=== PATIENT | female | born 1985 | race Two or more races ===

== ENCOUNTER 2021-04-28 15:13 | Inpatient (IN) | payer MEDICAID ==
[2021-04-28] VITALS (31 sets, daily range): BP systolic 88–140; BP diastolic 36–94
[~2021-04-28] VITALS: Ht 165.1 cm; Wt 90.7 kg
[2021-04-28] MEDS ORDERED: REMDESIVIR (EUA) 200 MG in NS 100ML 100 ML IV STA (19:53)
--- NOTE | 2021-04-28 19:53 | PCM.HP ---
HISTORY & PHYSICAL HISTORY & PHYSICAL DATE OF ADMISSION: April 28, 2021 CHIEF COMPLAINT: Progressively worsening shortness of breath no 8 days HISTORY OF PRESENT ILLNESS: 35-year-old female with previous history of no known medical problem was apparently in her usual health until about 8 days prior to this admission,He developed upper respiratory symptoms followed by progressively worsening shortness of breath went to the local emergency room where she was evaluated and found to have Covid pneumonia with acute hypoxemic respiratory failure . Patient was started on dexamethasone hydroxychloroquine ivermectin and other medications but her symptoms progressively got worse therefore they transferred the patient to this facility patient claims that her symptoms still with difficulty breathing especially with minimal exertion no fever no vomiting tolerating p.o. intake well no diarrhea no abdominal pain and denies any dysuria hematuria or increased frequency of urination ALLERGIES: No known drug allergies CURRENT MEDICATIONS: No regular medication intake except contraceptive injection PAST MEDICAL HISTORY: Nothing significant SOCIAL HISTORY: Denies smoking alcohol or drug use FAMILY HISTORY: Reviewed and noncontributory REVIEW OF SYSTEMS: Shortness of breath with even minimal exertion, no nausea or vomiting have chest pain with cough and deep breathing denies any abdominal pain no diarrhea last menstrual period several months prior to this admission after starting contraceptive injections history of having. No urinary symptoms have generalized weakness All systems reviewed and negative negative except mentioned above VITAL SIGNS: Vital Signs Date Time Temp Pulse Resp B/P (MAP) Pulse Ox O2 Delivery O2 Flow Rate FiO2 04/28/21 18:00 80 25 86 04/28/21 17:45 80 20 106/67 (80) 88 04/28/21 17:32 91 44 88/70 (76) 87 04/28/21 17:30 71 15 92 04/28/21 17:27 87 120 92/54 (67) 97 04/28/21 17:16 98 04/28/21 17:15 96 04/28/21 17:01 85 04/28/21 17:00 85 04/28/21 16:50 90 22 90 Comfort Doug 50.00 100 04/28/21 16:49 22 90 04/28/21 16:46 85 04/28/21 16:45 87 04/28/21 16:30 77 20 92/45 (61) 94 04/28/21 16:15 82 31 107/58 (74) 88 04/28/21 16:00 85 19 106/65 (79) 89 04/28/21 15:45 86 41 88/45 (59) 85 04/28/21 15:30 90 19 92/42 (59) 93 04/28/21 14:40 Comfort Doug 40.00 04/28/21 14:30 98.3 92 30 140/76 (97) 88 PHYSICAL EXAMINATION: Awake alert oriented have mild dyspnea no cyanosis HEENT pupil react light mucous membrane is moist I have high flow oxygen via nasal cannula 50% FiO2 and 70L/min flow rate Lungs bilateral Rales present diminished air entry bilaterally no wheezes heard Heart S1-S2 heard no murmur gallop appreciated,Regular rate and rhythm Abdomen: Soft nontender bowel sounds present no masses organomegaly appreciated Extremities: No edema no calf tenderness dorsalis pedis pulses present bilaterally 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 LUC DENISE MD Apr 28, 2021 19:53
[2021-04-28] MEDS: LOVENOX SQ SCH (20:00)
[2021-04-28] MEDS ORDERED: CARAFATE PO ONE (20:56)
[2021-04-28] MEDS: PEPCID PO SCH (21:00)
[2021-04-28] MEDS: CARAFATE PO SCH (21:00)
--- NOTE | 2021-04-28 23:30 | NUR ---
Dr. Merrill gave orders for bipap at night with settings of 14/6 with respirations 16. Goal to keep oxygen saturation 90 & or above. Order received for while on bipap PRN Q4H 0.5 ativan or 1mg ativan.
[2021-04-29] VITALS (76 sets, daily range): BP systolic 72–149; BP diastolic 33–112
[2021-04-29] MEDS ORDERED: ATIVAN IV PRN
[2021-04-29] MEDS: ATIVAN IV PRN (03:00)
[2021-04-29 04:50] LABS: LYMPHOCYTES # 1.17 10^3/uL1 (1.0-4.8); MEAN CORP HGB 29.1 pg (26-34); MONOCYTES # 0.5 10^3/uL (0.3-0.8); MONOCYTES % 8.4 % (5.0-12.0); NEUTROPHIL # 4.5 10^3/uL (1.8-7.7); NEUTROPHILS % 72.3 % (41.0-85.0); PLATELET COUNT 162 10^3/uL (150-400); RED CELL DISTRIBUTION WIDTH 12.5 % (11.5-14.5)
[2021-04-29 05:09] LABS: CALCIUM 8.6 mg/dL (8.4-10.5); CARBON DIOXIDE 25.2 mmol/L (20.0-32)
[2021-04-29] MEDS: CARAFATE PO SCH ×4 (07:30→20:59)
[2021-04-29] MEDS: DEXAMETHASONE 10 MG/ML VIAL IV SCH (09:00)
[2021-04-29] MEDS: PEPCID PO SCH ×2 (09:00→20:59)
[2021-04-29] MEDS ORDERED: SUBLIMAZE ONE (11:37)
[2021-04-29] MEDS ORDERED: SUBLIMAZE IV ONE (15:00)
--- NOTE | 2021-04-29 18:19 | PRM.PN ---
PROGRESS NOTE SUBJECTIVE Feeling the same shortness of breath still present cough intermittently and chest pain with coughing,Tolerating p.o. intake well As per a respiratory therapist patient did not tolerate BiPAP OBJECTIVE Vital Signs Date Time Temp Pulse Resp B/P (MAP) Pulse Ox O2 Delivery O2 Flow Rate FiO2 04/29/21 17:48 75 30 92 Comfort Doug 50.00 95 04/29/21 17:45 75 11 122/74 (90) 92 04/29/21 17:30 78 35 111/73 (86) 96 04/29/21 17:16 78 27 131/69 (89) 91 04/29/21 17:15 85 20 91 04/29/21 17:00 84 18 105/55 (72) 96 04/29/21 16:45 84 50 115/67 (83) 92 04/29/21 16:30 94 92 139/75 (96) 87 04/29/21 16:15 85 51 116/71 (86) 93 04/29/21 16:00 78 40 141/74 (96) 97 04/29/21 15:55 Comfort Doug 50.00 04/29/21 15:45 99.0 76 31 134/73 (93) 98 04/29/21 15:30 83 30 98/51 (67) 97 04/29/21 15:17 48 30 106/64 (78) 92 04/29/21 15:15 76 25 90 04/29/21 15:01 87 35 94 04/29/21 15:00 88 33 94 04/29/21 14:46 68 44 94 04/29/21 14:45 85 41 95 04/29/21 14:37 93 35 95 Comfort Doug 50.00 95 04/29/21 14:31 86 38 92 04/29/21 14:16 86 12 93 04/29/21 14:01 89 16 96 04/29/21 14:00 84 14 96 04/29/21 13:45 88 39 96 04/29/21 13:15 89 36 106/76 (86) 98 04/29/21 13:00 77 34 126/72 (90) 98 04/29/21 12:45 73 32 126/55 (78) 99 04/29/21 12:30 91 14 125/76 (92) 97 04/29/21 12:15 88 61 122/63 (82) 97 04/29/21 12:01 77 16 128/74 (92) 97 04/29/21 12:00 Comfort Doug 50.00 04/29/21 11:45 85 136/73 (94) 96 04/29/21 11:30 91 24 117/68 (84) 98 04/29/21 11:15 85 20 117/75 (89) 96 04/29/21 11:00 86 28 113/80 (91) 100 04/29/21 10:45 74 29 113/60 (77) 98 04/29/21 10:30 92 38 129/81 (97) 100 04/29/21 10:15 76 38 102/57 (72) 100 04/29/21 10:00 73 37 111/72 (85) 98 04/29/21 09:45 85 40 97 04/29/21 09:31 75 16 108/65 (79) 04/29/21 09:30 87 24 96 04/29/21 09:25 87 25 96 Comfort Doug 55.00 100 04/29/21 09:15 77 19 97 04/29/21 09:14 84 96 04/29/21 08:16 93 14 146/112 (123) 04/29/21 08:15 94 72 04/29/21 08:00 68 28 111/62 (78) 04/29/21 07:45 98.2 70 20 100/74 (83) 04/29/21 07:30 52 93/51 (65) 97 04/29/21 07:15 51 16 89/57 (68) 97 04/29/21 07:00 51 15 93/57 (69) 97 General: Patient is sitting in the chair breathing 95% FiO2 and 50% flow rate v ia high flow comfort flow mechanism Saturating 92% HEENT pupil react light anicteric sclera mucous membrane is moist neck supple Lungs Bilateral Rales present in all 3 zones ,Shallow breathing Heart S1-S2 heard no murmur gallop appreciated Abdomen soft no guarding bowel sounds present Extremities no edema no calf tenderness elicited 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 Laboratory Tests Test 04/29/21 04:35 White Blood Count 6.2 10^3/uL (4.5-11.0) Red Blood Count 4.64 10^6/uL (4.00-5.20) Hemoglobin 13.5 g/dL (12.0-15.0) Hematocrit 41.2 % (36.0-46.0) Mean Corpuscular Volume 88.8 fL (78-100) Mean Corpuscular Hemoglobin 29.1 pg (26-34) Mean Corpuscular Hemoglobin Concent 32.8 g/dL (33-36.5) Red Cell Distribution Width 12.5 % (11.5-14.5) Platelet Count 162 10^3/uL (150-400) Mean Platelet Volume 10.9 fL (7.8-11.0) Neutrophils (%) (Auto) 72.3 % (41.0-85.0) Lymphocytes (%) (Auto) 19.0 % (24.0-44.0) Monocytes (%) (Auto) 8.4 % (5.0-12.0) Neutrophils # (Auto) 4.5 10^3/uL (1.8-7.7) Lymphocytes # (Auto) 1.17 10^3/uL1 (1.0-4.8) Monocytes # (Auto) 0.5 10^3/uL (0.3-0.8) Absolute Immature Granulocyte (auto 0.02 10^3 u/L (0-2) Absolute Eosinophils (auto) 0.0 10^3/uL (0.0-0.2) Immature Granulocytes % 0.30 % (0.00-0.50) Eosinophils % 0.0 % (0.0-5.0) Basophils % 0.0 % (0.0-0.2) Basophils # 0.0 10^3/uL (0.0-0.1) Sodium Level 141 mmol/L (132-145) Potassium Level 4.0 mmol/L (3.6-5.2) Chloride Level 106.0 mmol/L (96-109) Carbon Dioxide Level 25.2 mmol/L (20.0-32) Anion Gap 13.8 Blood Urea Nitrogen 12 mg/dL (7-18) Creatinine 0.65 mg/dL (0.59-1.40) Estimated GFR () 124.8 (>/=60) Est GFR (CKD-EPI)(Non-Afr Senegalese) 103.1 (>/=60) BUN/Creatinine Ratio 18.0 Glucose Level 98 mg/dL (70-110) Calcium Level 8.6 mg/dL (8.4-10.5) Total Bilirubin 0.5 mg/dL (0.2-1.0) Aspartate Amino Transf (AST/SGOT) 42 U/L (0-35) Alanine Aminotransferase (ALT/SGPT) 47 U/L (12-78) Alkaline Phosphatase 47 U/L (50-136) Total Protein 6.6 g/dL (6.4-8.2) Albumin 2.6 g/dL (3.4-5.0) Globulin 4.0 Albumin/Globulin Ratio 0.650 Serum HCG, Qualitative NEGATIVE (NEGATIVE) ASSESSMENT Acute hypoxemic respiratory failure on high flow oxygen as outo respiratory therapist patient refused BiPAP currently on 95% oxygen and 50 L/min flow rate COVID-19 pneumonia Amenorrhea secondary to hormone therapy for contraceptive High risk For DVT PLAN Continue current management and reevaluate the patient in a.m. Recommended transferring patient to LTAC LUC DENISE MD Apr 29, 2021 18:19
[2021-04-29] MEDS: LOVENOX SQ SCH (20:00)
[2021-04-29] MEDS: REMDESIVIR (EUA) 100 MG in NS 100ML 100 ML IV SCH (20:00)
[2021-04-30] VITALS (96 sets, daily range): BP systolic 97–186; BP diastolic 43–99
[2021-04-30 04:44] LABS: BASOPHIL % 0.2 % (0.0-0.2); LYMPHOCYTES # 1.32 10^3/uL1 (1.0-4.8); LYMPHOCYTES % 20.6 % (24.0-44.0); MEAN CORP HGB 29.6 pg (26-34); MONOCYTES # 0.5 10^3/uL (0.3-0.8); MONOCYTES % 8.4 % (5.0-12.0); NEUTROPHIL # 4.5 10^3/uL (1.8-7.7); NEUTROPHILS % 70.8 % (41.0-85.0); PLATELET COUNT 195 10^3/uL (150-400); RED CELL DISTRIBUTION WIDTH 12.1 % (11.5-14.5)
[2021-04-30 04:58] LABS: CALCIUM 8.4 mg/dL (8.4-10.5); CARBON DIOXIDE 26.2 mmol/L (20.0-32)
--- NOTE | 2021-04-30 06:50 | NUR ---
REPORT RECEIVED FROM SIGRID AMBRIZ RN. ASSUMED PT CARE.
[2021-04-30] MEDS: CARAFATE PO SCH ×4 (07:30→21:00)
[2021-04-30] MEDS: DEXAMETHASONE 10 MG/ML VIAL IV SCH (08:19)
[2021-04-30] MEDS: PEPCID PO SCH ×2 (08:19→21:00)
--- NOTE | 2021-04-30 14:10 | PRM.PN ---
PROGRESS NOTE SUBJECTIVE Patient claims feeling slightly better cough diminished tolerating p.o. intake well no bowel movements no chest pain except during cough and no abdominal symptoms OBJECTIVE Vital Signs Date Time Temp Pulse Resp B/P (MAP) Pulse Ox O2 Delivery O2 Flow Rate FiO2 04/30/21 13:00 111 107/60 (76) 98 04/30/21 12:45 82 17 113/71 (85) 95 04/30/21 12:30 90 8 105/75 (85) 94 04/30/21 12:15 142 120/64 (82) 97 04/30/21 12:06 99.0 88 35 115/66 (82) 95 04/30/21 12:02 186/99 (128) 93 04/30/21 12:00 Comfort Doug 50.00 04/30/21 11:30 94 43 140/51 (80) 88 04/30/21 11:15 91 10 114/64 (81) 91 04/30/21 11:00 88 17 157/93 (114) 94 04/30/21 10:46 92 28 135/66 (89) 94 04/30/21 10:30 79 17 132/67 (88) 97 04/30/21 10:15 94 24 144/86 (105) 91 04/30/21 10:00 92 15 125/79 (94) 96 04/30/21 09:45 95 143/79 (100) 91 04/30/21 09:30 91 21 123/75 (91) 94 04/30/21 09:16 93 24 108/70 (83) 97 04/30/21 09:15 95 24 98 04/30/21 09:00 92 40 119/75 (90) 93 04/30/21 08:45 85 27 111/63 (79) 91 04/30/21 08:30 96 41 106/76 (86) 86 04/30/21 08:16 94 24 126/80 (95) 87 04/30/21 08:15 93 37 90 04/30/21 08:14 73 30 93 Comfort Doug 50.00 95 04/30/21 08:00 80 113/75 (88) 91 04/30/21 08:00 Comfort Doug 50.00 04/30/21 07:45 85 35 109/67 (81) 86 04/30/21 07:30 75 12 125/84 (98) 97 04/30/21 07:15 83 13 110/70 (83) 85 04/30/21 07:00 94 21 111/76 (88) 89 General awake alert oriented sitting At the bedside no acute distress HEENT high flow oxygen via nasal cannula anicteric sclera pupil react light mucous membrane is moist neck supple no JVD noted Lungs: Bilateral Rales present no wheezes heard air entry diminished on both lower zone Heart S1-S2 heard no murmur gallop appreciatedHeart S1-S2 heard no murmur gallop appreciated Abdomen: Soft nontender bowel sounds present no organomegaly appreciated Extremities: Moves all 4 extremities no edema no calf tenderness elicited 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 no focal deficit elicited and normal mood and judgment Laboratory Tests Test 04/29/21 04:35 04/30/21 04:28 White Blood Count 6.2 10^3/uL (4.5-11.0) 6.4 10^3/uL (4.5-11.0) Red Blood Count 4.64 10^6/uL (4.00-5.20) 4.49 10^6/uL (4.00-5.20) Hemoglobin 13.5 g/dL (12.0-15.0) 13.3 g/dL (12.0-15.0) Hematocrit 41.2 % (36.0-46.0) 39.3 % (36.0-46.0) Mean Corpuscular Volume 88.8 fL (78-100) 87.5 fL (78-100) Mean Corpuscular Hemoglobin 29.1 pg (26-34) 29.6 pg (26-34) Mean Corpuscular Hemoglobin Concent 32.8 g/dL (33-36.5) 33.8 g/dL (33-36.5) Red Cell Distribution Width 12.5 % (11.5-14.5) 12.1 % (11.5-14.5) Platelet Count 162 10^3/uL (150-400) 195 10^3/uL (150-400) Mean Platelet Volume 10.9 fL (7.8-11.0) 10.8 fL (7.8-11.0) Neutrophils (%) (Auto) 72.3 % (41.0-85.0) 70.8 % (41.0-85.0) Lymphocytes (%) (Auto) 19.0 % (24.0-44.0) 20.6 % (24.0-44.0) Monocytes (%) (Auto) 8.4 % (5.0-12.0) 8.4 % (5.0-12.0) Neutrophils # (Auto) 4.5 10^3/uL (1.8-7.7) 4.5 10^3/uL (1.8-7.7) Lymphocytes # (Auto) 1.17 10^3/uL1 (1.0-4.8) 1.32 10^3/uL1 (1.0-4.8) Monocytes # (Auto) 0.5 10^3/uL (0.3-0.8) 0.5 10^3/uL (0.3-0.8) Absolute Immature Granulocyte (auto 0.02 10^3 u/L (0-2) 0.04 10^3 u/L (0-2) Absolute Eosinophils (auto) 0.0 10^3/uL (0.0-0.2) 0.0 10^3/uL (0.0-0.2) Immature Granulocytes % 0.30 % (0.00-0.50) 0.60 % (0.00-0.50) Eosinophils % 0.0 % (0.0-5.0) 0.0 % (0.0-5.0) Basophils % 0.0 % (0.0-0.2) 0.2 % (0.0-0.2) Basophils # 0.0 10^3/uL (0.0-0.1) 0.0 10^3/uL (0.0-0.1) Sodium Level 141 mmol/L (132-145) 142 mmol/L (132-145) Potassium Level 4.0 mmol/L (3.6-5.2) 3.9 mmol/L (3.6-5.2) Chloride Level 106.0 mmol/L (96-109) 106.0 mmol/L (96-109) Carbon Dioxide Level 25.2 mmol/L (20.0-32) 26.2 mmol/L (20.0-32) Anion Gap 13.8 13.7 Blood Urea Nitrogen 12 mg/dL (7-18) 17 mg/dL (7-18) Creatinine 0.65 mg/dL (0.59-1.40) 0.54 mg/dL (0.59-1.40) Estimated GFR () 124.8 (>/=60) 154.6 (>/=60) Est GFR (CKD-EPI)(Non-Afr Indian) 103.1 (>/=60) 127.7 (>/=60) BUN/Creatinine Ratio 18.0 31.0 Glucose Level 98 mg/dL (70-110) 92 mg/dL (70-110) Calcium Level 8.6 mg/dL (8.4-10.5) 8.4 mg/dL (8.4-10.5) Total Bilirubin 0.5 mg/dL (0.2-1.0) 0.5 mg/dL (0.2-1.0) Aspartate Amino Transf (AST/SGOT) 42 U/L (0-35) 40 U/L (0-35) Alanine Aminotransferase (ALT/SGPT) 47 U/L (12-78) 42 U/L (12-78) Alkaline Phosphatase 47 U/L (50-136) 43 U/L (50-136) Total Protein 6.6 g/dL (6.4-8.2) 6.6 g/dL (6.4-8.2) Albumin 2.6 g/dL (3.4-5.0) 2.5 g/dL (3.4-5.0) Globulin 4.0 4.1 Albumin/Globulin Ratio 0.650 0.609 Serum HCG, Qualitative NEGATIVE (NEGATIVE) ASSESSMENT Acute hypoxemic respiratory failure- No significant improvement COVID-19 pneumonia Bilateral lungs Hypercoagulable status PLAN Continue current management patient still not on BiPAP, Tocilizumab 1 dose will be administered afebrile above and will closely monitor the patient in ICU LUC DENISE MD Apr 30, 2021 14:09
[2021-04-30] MEDS: TYLENOL PO PRN (17:54)
[2021-04-30] MEDS: REMDESIVIR (EUA) 100 MG in NS 100ML 100 ML IV SCH (19:42)
[2021-04-30] MEDS: LOVENOX SQ SCH (19:43)
[2021-04-30] MEDS: ATIVAN IV PRN (22:30)
[2021-05-01] VITALS (94 sets, daily range): BP systolic 85–165; BP diastolic 42–106
[2021-05-01 04:50] LABS: MEAN CORP HGB 29.6 pg (26-34); RED CELL DISTRIBUTION WIDTH 12.1 % (11.5-14.5)
[2021-05-01 05:07] LABS: CALCIUM 8.8 mg/dL (8.4-10.5); CARBON DIOXIDE 26.8 mmol/L (20.0-32)
[2021-05-01] MEDS: TYLENOL PO PRN (06:28)
--- NOTE | 2021-05-01 07:05 | NUR ---
REPORT TO ONCOMING SHIFT. PT CARE RELINQUISHED.
[2021-05-01] MEDS: CARAFATE PO SCH ×4 (07:30→20:50)
[2021-05-01] MEDS: PEPCID PO SCH ×2 (08:14→20:51)
[2021-05-01] MEDS: DEXAMETHASONE 10 MG/ML VIAL IV SCH (08:14)
--- NOTE | 2021-05-01 10:00 | NUR ---
Pt HR 125 RR 60 SpO2 88%, Placed patient on BIPAP at 1000 with settings of 14/7 and backup rate of 12 FiO2 100% per Dr Seen orders. post BIPAP HR 85 RR 23 SpO2 97%, pt sitting up in chair. appears to be comfortable
[2021-05-01] MEDS ORDERED: NS IV SCH (10:30)
[2021-05-01] MEDS ORDERED: PRECEDEX IV SCH (10:30)
--- NOTE | 2021-05-01 10:56 | TELE.CONS ---
Consultation Reason for Consult: Reason for Consultation: COvid PNA History of Present Illness History of Patient Comments The pt is feeling anxious today. She is hypoxic and so went back on bipap Review of Systems Allergies: Coded Allergies: ibuprofen (Verified Allergy, Unknown, 04/29/21) naproxen (Verified Allergy, Unknown, 04/29/21) VITALS REVIEW VITALS Vital Sign - Last 24 Hours 05/01/21 10:14 Pulse 85 Resp 23 Pulse Ox 97 O2 Delivery S/T FiO2 100 LABS LAB RESULTS Laboratory Tests Test 04/29/21 04:35 04/30/21 04:28 05/01/21 04:32 White Blood Count 6.2 10^3/uL 6.4 10^3/uL 10.2 10^3/uL Red Blood Count 4.64 10^6/uL 4.49 10^6/uL 4.50 10^6/uL Hemoglobin 13.5 g/dL 13.3 g/dL 13.3 g/dL Hematocrit 41.2 % 39.3 % 39.6 % Mean Corpuscular Volume 88.8 fL 87.5 fL 88.0 fL Mean Corpuscular Hemoglobin 29.1 pg 29.6 pg 29.6 pg Mean Corpuscular Hemoglobin Concent 32.8 g/dL 33.8 g/dL 33.6 g/dL Red Cell Distribution Width 12.5 % 12.1 % 12.1 % Platelet Count 162 10^3/uL 195 10^3/uL 234 10^3/uL Mean Platelet Volume 10.9 fL 10.8 fL 10.4 fL Neutrophils (%) (Auto) 72.3 % 70.8 % Lymphocytes (%) (Auto) 19.0 % 20.6 % Monocytes (%) (Auto) 8.4 % 8.4 % Neutrophils # (Auto) 4.5 10^3/uL 4.5 10^3/uL Lymphocytes # (Auto) 1.17 10^3/uL1 1.32 10^3/uL1 Monocytes # (Auto) 0.5 10^3/uL 0.5 10^3/uL Absolute Immature Granulocyte (auto 0.02 10^3 u/L 0.04 10^3 u/L Absolute Eosinophils (auto) 0.0 10^3/uL 0.0 10^3/uL Immature Granulocytes % 0.30 % 0.60 % Eosinophils % 0.0 % 0.0 % Basophils % 0.0 % 0.2 % Basophils # 0.0 10^3/uL 0.0 10^3/uL Sodium Level 141 mmol/L 142 mmol/L 139 mmol/L Potassium Level 4.0 mmol/L 3.9 mmol/L 3.9 mmol/L Chloride Level 106.0 mmol/L 106.0 mmol/L 105.0 mmol/L Carbon Dioxide Level 25.2 mmol/L 26.2 mmol/L 26.8 mmol/L Anion Gap 13.8 13.7 11.1 Blood Urea Nitrogen 12 mg/dL 17 mg/dL 12 mg/dL Creatinine 0.65 mg/dL 0.54 mg/dL 0.56 mg/dL Estimated GFR () 124.8 154.6 148.2 Est GFR (CKD-EPI)(Non-Afr Colombian) 103.1 127.7 122.5 BUN/Creatinine Ratio 18.0 31.0 21.0 Glucose Level 98 mg/dL 92 mg/dL 87 mg/dL Calcium Level 8.6 mg/dL 8.4 mg/dL 8.8 mg/dL Total Bilirubin 0.5 mg/dL 0.5 mg/dL 0.5 mg/dL Aspartate Amino Transf (AST/SGOT) 42 U/L 40 U/L 36 U/L Alanine Aminotransferase (ALT/SGPT) 47 U/L 42 U/L 39 U/L Alkaline Phosphatase 47 U/L 43 U/L 43 U/L Total Protein 6.6 g/dL 6.6 g/dL 6.7 g/dL Albumin 2.6 g/dL 2.5 g/dL 2.5 g/dL Globulin 4.0 4.1 4.2 Albumin/Globulin Ratio 0.650 0.609 0.595 Serum HCG, Qualitative NEGATIVE Current Medications Medications (Trade) Dose Ordered Sig/Davon Route PRN Reason Start Time Stop Time Status Last Admin Dose Admin Remdesivir 200 mg/ Sodium Chloride 140 ml @ 120.69 mls/ hr OT STAT IV 04/28/21 19:53 04/29/21 08:10 DC 04/28/21 19:53 Remdesivir 100 mg/ Sodium Chloride 120 ml @ 111.111 mls/hr Q24HRS IV 04/29/21 20:00 05/02/21 21:05 04/30/21 19:42 Famotidine (Pepcid) 20 mg BID PO 04/28/21 21:00 05/28/21 20:59 05/01/21 08:14 Sucralfate (Carafate) 1 gm ACHS PO 04/28/21 21:00 05/28/21 20:59 05/01/21 07:30 Enoxaparin Sodium (Lovenox) 40 mg Q24HRS SQ 04/28/21 20:00 05/28/21 19:59 04/30/21 19:43 Sucralfate (Carafate) 1 gm STK-MED ONCE PO 04/28/21 20:56 04/28/21 20:56 DC Lorazepam (Ativan) 1 mg Q4HR PRN IV ANXIETY 04/29/21 00:00 05/29/21 00:00 04/30/21 22:30 Lorazepam (Ativan) 0.5 mg Q4HR PRN IV ANXIETY 04/29/21 00:00 05/29/21 00:00 Fentanyl Citrate (Sublimaze) 50 mcg STK-MED ONCE .ROUTE 04/29/21 11:37 04/29/21 11:38 DC Fentanyl Citrate (Sublimaze) 12.5 mcg OT ONCE IV 04/29/21 15:00 04/29/21 15:06 DC 04/29/21 13:35 Acetaminophen (Tylenol) 650 mg Q6HR PRN PO PAIN 1 - 3 04/30/21 18:00 05/02/21 18:00 05/01/21 06:28 Dexmedetomidine HCl 200 mcg/ Sodium Chloride 50 ml @ 0 mls/hr IV 05/01/21 10:30 05/31/21 10:29 UNV VTE VTE Risk Total Score: 5 VTE Risk Score VTE Risk: Score 0-1 = Low Risk (Aggressive mobilization; early ambulation; no VTE prophylaxis required) Score 2: Moderate Risk (Intermittent/Pneumatic Compression Device OR Lovenox/Heparin/Coumadin) Score 3-4: High Risk (Intermittent/Pneumatic Compression Device AND Lovenox/Heparin/Coumadin) Score > or =5: Highest Risk (Intermittent/Pneumatic Compression Device AND Lovenox/Heparin/Coumadin) VTE VTE Present on Admission: No Currently receiving anticoagul: Yes VTE Risk Total Score: 5 Assessment/Plan Assessment/Plan Assessment/Plan #1 Neuro: THe pt is very anxious and was given 0.5 ativan which helped. will start precedex drip to help with anxiety #2 CV: The pt is normotensive at present. #3 Pulm: Pt has covid PNA now c/b ARDS and acute respiratory failure with hypoxia requiring BIPAP 15/7 100%. Pt received decadron, remdesivir, vit c, t hiamine, check CXR, start duonebs, melatonin. #4 GI: PO as tolerated when on high flow #5 Renal: Monitor for renal failure, replete lytes #6 ID: Covid + and getting remdesivir #7 Endo: keep FS 150-180 #8 Heme: Tx plats >10k hgb >7, pt at risk for clotting and so will give a/c #9 PPx: lovenox and PPI I discussed pt with TOP INSTALLER and completed the video assessment with assistance from the TOP INSTALLER. I spent a total of greater than 60 minutes formulating critical care for this patient today. I saw this patient and completed a full visual exam via audio-visual HIPAA compliant technology. MYRIAM WILKINS MD May 01, 2021 10:56
[2021-05-01 11:40] LABS: ABG PCO2 31.9 mmHg (35.0-45.0); ABG PH 7.459 (7.350-7.450); BE(B) -0.8 mmol/L (-2.0-2.0); HCO3act 22.1 mmol/L (22.0-26.0); pO2 86.7 mmHg (80.0-100.0)
--- NOTE | 2021-05-01 12:12 | DIREP ---
PROCEDURE:CHEST 1 VIEW COMPARISON:None. INDICATIONS:hypoxia, COVID PNEUMONIA FINDINGS: LUNGS/PLEURA:Alveolar infiltrates in the mid and lower lung beverly bilaterally consistent with pneumonia including COVID-19. No effusions. VASCULATURE:Normal. Unremarkable pulmonary vasculature. CARDIAC:Normal. No cardiac silhouette abnormality or cardiomegaly. MEDIASTINUM:Normal. No visible mass or adenopathy. BONES:Normal. No fracture or visible bony lesion. OTHER:Negative. CONCLUSION:Bibasilar pneumonia. Dictated by: Rafa Zabala M.D. on 05/01/2021 at 12:09 PM
[2021-05-01] MEDS ORDERED: NS 250ML 250 ML ONE (20:40)
[2021-05-01] MEDS: LOVENOX SQ SCH (20:50)
[2021-05-01] MEDS: REMDESIVIR (EUA) 100 MG in NS 100ML 100 ML IV SCH (20:50)
[2021-05-01] MEDS ORDERED: DEXAMETHASONE 10 MG/ML VIAL IV SCH (21:00)
[2021-05-02] VITALS (53 sets, daily range): BP systolic 81–174; BP diastolic 31–107
[2021-05-02] MEDS: PRECEDEX 400 MCG/100 ML INJECT 100 ML IV SCH ×2 (04:21→23:30)
[2021-05-02 06:57] LABS: LYMPHOCYTES # 0.89 10^3/uL1 (1.0-4.8); LYMPHOCYTES % 11.7 % (24.0-44.0); MEAN CORP HGB 29.4 pg (26-34); MONOCYTES # 0.4 10^3/uL (0.3-0.8); MONOCYTES % 5.4 % (5.0-12.0); NEUTROPHIL # 6.3 10^3/uL (1.8-7.7); NEUTROPHILS % 82.9 % (41.0-85.0); PLATELET COUNT 268 10^3/uL (150-400)
[2021-05-02 07:05] LABS: CALCIUM 8.8 mg/dL (8.4-10.5); CARBON DIOXIDE 27.6 mmol/L (20.0-32)
--- NOTE | 2021-05-02 07:23 | NUR ---
REPORT GIVEN TO OMAYRA PT CARE RELINQUISHED
[2021-05-02] MEDS: CARAFATE PO SCH ×4 (07:30→20:45)
[2021-05-02 08:50] LABS: ABG PCO2 41.1 mmHg (35.0-45.0); ABG PH 7.405 (7.350-7.450); BE(B) 0.4 mmol/L (-2.0-2.0); HCO3act 25.2 mmol/L (22.0-26.0); pO2 82.5 mmHg (80.0-100.0)
[2021-05-02] MEDS: PEPCID PO SCH ×2 (09:29→20:45)
[2021-05-02] MEDS: DEXAMETHASONE 10 MG/ML VIAL IV SCH (09:29)
--- NOTE | 2021-05-02 09:35 | PRM.PN ---
SUBJECTIVE Worsening shortness of breath and cough, as per nursing staff oxygen saturation Decreasing 35-year-old female with previous history of no known medical problem came to the hospital with Covid infection and acute respiratory failure she was started on remdesivir and Decadron but continued to deteriorate gradually patient was again advised to undergo BiPAP ventilation and she agreed will start on BiPAP today with low setting and gradually adjust according to the clinical response prognosis is guarded OBJECTIVE Vital Signs Date Time Temp Pulse Resp B/P (MAP) Pulse Ox O2 Delivery O2 Flow Rate FiO2 05/01/21 14:40 Room Air 05/01/21 14:40 98.8 60 20 137/79 (98) 97 Nasal [place] 2.00 05/01/21 14:35 98.4 64 18 138/79 (98) 96 Nasal [place] 2.00 05/01/21 12:42 98.4 55 18 113/60 (77) 95 Room Air 05/01/21 11:40 98.4 60 18 111/72 (85) 100 Room Air 05/01/21 10:40 98.4 64 18 100/63 (75) 94 Room Air 05/01/21 09:43 98.4 55 18 104/63 (77) 91 Room Air 05/01/21 08:28 98.4 71 18 164/84 (110) 92 Room Air 05/01/21 08:24 98.4 71 18 92 05/01/21 08:24 98.4 71 18 HEENT anicteric sclera pupil react light mucous membrane is moist neck supple no JVD Lungs diminished air entry bilaterally Rales scattered bilaterally -Increased Heart S1-S2 heard no murmur gallop appreciated Abdomen soft no guarding no rigidity,Bowel sounds present Extremities no calf tenderness or edema 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 secondary to dyspnea Laboratory Tests Test 05/01/21 00:00 05/01/21 08:43 05/01/21 13:03 05/01/21 14:26 Urine Collection Type RANDOM Urine Color YELLOW Urine Appearance CLEAR Urine Bilirubin NEGATIVE (NEGATIVE) Urine Ketones NEGATIVE (NEGATIVE) Urine Specific [place] <=1.005 (1.005-1.030) Urine pH 5.5 (4.5-8.0) Urine Protein NEGATIVE (NEGATIVE) Urine Urobilinogen 0.2 E.U./dL (0.2) Urine Nitrate NEGATIVE (NEGATIVE) Urine Leukocyte Esterase NEGATIVE (NEGATIVE) Urine Glucose (Auto)(UA) NEGATIVE (NEGATIVE) Urine Blood TRACE-INTACT (NEGATIVE) Urine RBC 0-2 RBC/HPF (NONE SEEN) Urine WBC NONE SEEN WBC/HPF (0-2) Urine Squamous Epithelial Cells RARE #/HPF (FEW) Urine Bacteria NONE SEEN (NONE SEEN) White Blood Count 9.1 10^3/uL (4.5-11.0) Red Blood Count 4.34 10^6/uL (4.50-5.90) Hemoglobin 14.8 g/dL (13.9-16.3) Hematocrit 43.8 % (37.0-53.0) Mean Corpuscular Volume 100.9 fL (78-100) Mean Corpuscular Hemoglobin 34.1 pg (26-34) Mean Corpuscular Hemoglobin Concent 33.8 g/dL (33-36.5) Red Cell Distribution Width 12.5 % (11.5-14.5) Platelet Count 178 10^3/uL (150-400) Mean Platelet Volume 10.2 fL (7.8-11.0) Neutrophils (%) (Auto) 73.6 % (41.0-85.0) Lymphocytes (%) (Auto) 14.1 % (24.0-44.0) Monocytes (%) (Auto) 10.9 % (5.0-12.0) Neutrophils # (Auto) 6.7 10^3/uL (1.8-7.7) Lymphocytes # (Auto) 1.28 10^3/uL1 (1.0-4.8) Monocytes # (Auto) 1.0 10^3/uL (0.3-0.8) Absolute Immature Granulocyte (auto 0.04 10^3 u/L (0-2) Absolute Eosinophils (auto) 0.1 10^3/uL (0.0-0.2) Immature Granulocytes % 0.40 % (0.00-0.50) Eosinophils % 0.7 % (0.0-5.0) Basophils % 0.3 % (0.0-0.2) Basophils # 0.0 10^3/uL (0.0-0.1) Prothrombin Time 10.0 SEC (9.6-12.0) Prothrombin Time INR (Non-Therap) 0.9 Activated Partial Thromboplast Time 24.5 SEC (24.67-30.72) Sodium Level 137 mmol/L (132-145) 136 mmol/L (132-145) Potassium Level 3.8 mmol/L (3.6-5.2) 4.7 mmol/L (3.6-5.2) Chloride Level 104.0 mmol/L (96-109) 104.0 mmol/L (96-109) Carbon Dioxide Level 26.5 mmol/L (20.0-32) 25.1 mmol/L (20.0-32) Anion Gap 10.3 11.6 Blood Urea Nitrogen 11 mg/dL (7-18) 9 mg/dL (7-18) Creatinine 1.09 mg/dL (0.59-1.40) 1.04 mg/dL (0.59-1.40) Estimated GFR () 85.6 (>/=60) 90.4 (>/=60) Est GFR (CKD-EPI)(Non-Afr [place]an) 70.8 (>/=60) 74.7 (>/=60) BUN/Creatinine Ratio 10.0 8.0 Glucose Level 129 mg/dL (70-110) 106 mg/dL (70-110) Lactic Acid Level 1.0 mmol/L (0.5-1.9) Calcium Level 8.7 mg/dL (8.4-10.5) 8.3 mg/dL (8.4-10.5) Total Bilirubin 0.3 mg/dL (0.2-1.0) 0.5 mg/dL (0.2-1.0) Aspartate Amino Transf (AST/SGOT) 17 U/L (0-35) 34 U/L (0-35) Alanine Aminotransferase (ALT/SGPT) 36 U/L (12-78) 52 U/L (12-78) Alkaline Phosphatase 82 U/L (50-136) 77 U/L (50-136) Total Protein 7.2 g/dL (6.4-8.2) 7.1 g/dL (6.4-8.2) Albumin 3.5 g/dL (3.4-5.0) 3.4 g/dL (3.4-5.0) Globulin 3.7 3.7 Albumin/Globulin Ratio 0.945 0.918 Amylase Level 48 U/L (25-115) Lipase 88 U/L (114-286) Helicobacter pylori Screen POSITIVE (NEGATIVE) D-Dimer 1.14 mg/L (0.19-0.49) ASSESSMENT Acute hypoxemic respiratory failure gradually worsening- We will start patient on BiPAP, Consult telemetry room service associate service COVID-19 pneumonia bilaterally Hypercoagulable status PLAN Plan: BiPAP continuously except during p.o. intake, room service associate consultation, reevaluate the patient in a.m.,Labs a.LUC Cornell MD May 01, 2021 19:20 MTDD
--- NOTE | 2021-05-02 12:31 | PRM.PN ---
Subjective Subjective Date: May 02, 2021 Time: 12:24 Subjective Patient seen and examined this morning. She denies any acute events overnight. She reports breathing a little better after using BiPAP overnight. She does endorse sleeping prone at night also. She reports that she hasn't eaten for the past day and has not have any bowel movements for a few days. She has no new complaints at this time. VTE VTE Risk Total Score: 5 VTE Risk Score VTE Risk: Score 0-1 = Low Risk (Aggressive mobilization; early ambulation; no VTE prophylaxis required) Score 2: Moderate Risk (Intermittent/Pneumatic Compression Device OR Lovenox/Heparin/Coumadin) Score 3-4: High Risk (Intermittent/Pneumatic Compression Device AND Lovenox/Heparin/Coumadin) Score > or =5: Highest Risk (Intermittent/Pneumatic Compression Device AND Lovenox/Heparin/Coumadin) Review of Systems Constitutional: No: Fever, Chills, Sweats Eyes: No: Pain, Vision change ENT: No: Nose congestion, Mouth pain Respiratory: SOB with excertion; No: Cough, Dry, Hemoptysis Cardiovascular: No: Chest Pain, Palpitations, Orthopnea Gastrointestinal: No: Nausea, Vomiting, Abdominal Pain Genitourinary: No Dysuria, No Frequency, No Incontinence Musculoskeletal: No: neck pain, shoulder pain, back pain Skin: No: Rash, Lesions Neurological: No: Weakness, Numbness Allergies: Coded Allergies: ibuprofen (Verified Allergy, Unknown, 04/29/21) naproxen (Verified Allergy, Unknown, 04/29/21) Objective Vitals and I/O Vital Sign - Last 24 Hours 05/02/21 05/02/21 05/02/21 05/02/21 08:00 08:07 08:15 08:22 Pulse 64 45 47 83 Resp 24 21 19 33 B/P (MAP) 104/59 (74) Pulse Ox 93 95 95 86 O2 Delivery S/T FiO2 100 05/02/21 05/02/21 05/02/21 05/02/21 08:31 08:37 08:45 08:52 Pulse 69 68 65 75 Resp 24 31 30 35 B/P (MAP) 137/87 (104) Pulse Ox 95 95 93 91 05/02/21 05/02/21 05/02/21 05/02/21 08:54 09:00 09:00 09:07 Pulse 62 64 64 Resp 10 24 38 B/P (MAP) 119/74 (89) Pulse Ox 89 93 89 O2 Delivery Bi-pap Bi-pap O2 Flow Rate 100.00 FiO2 99 05/02/21 05/02/21 05/02/21 05/02/21 09:10 09:16 09:22 09:30 Pulse 106 62 63 83 Resp 26 29 32 29 B/P (MAP) 160/72 (101) 135/77 (96) Pulse Ox 89 89 90 81 O2 Delivery Comfort Doug O2 Flow Rate 50.00 FiO2 100 05/02/21 05/02/21 05/02/21 05/02/21 09:37 09:46 09:52 10:00 Pulse 73 74 70 55 Resp 16 34 27 16 B/P (MAP) 174/107 (129) Pulse Ox 85 82 83 95 O2 Delivery S/T FiO2 100 05/02/21 05/02/21 05/02/21 05/02/21 10:00 10:07 10:15 10:22 Pulse 60 66 68 65 Resp 23 36 23 B/P (MAP) 115/77 (90) 114/79 (91) Pulse Ox 92 93 92 92 General: Alert, Oriented X3, Cooperative HEENT: Atraumatic, PERRLA, EOMI Neck: Supple Lungs: Clear to auscultation, Normal air movement Heart: No murmurs, Other (mild bradycardia, asymptomatic ) Abdomen: Normal bowel sounds, Soft Extremities: No clubbing, No cyanosis Skin: No rashes, No breakdown Neuro: Normal speech, Normal tone Psych/Mental Status: Mental status NL, Mood NL All Results(Lab/Rad) Laboratory Tests Test 05/02/21 06:37 05/02/21 08:25 White Blood Count 7.6 10^3/uL Red Blood Count 4.62 10^6/uL Hemoglobin 13.6 g/dL Hematocrit 40.6 % Mean Corpuscular Volume 87.9 fL Mean Corpuscular Hemoglobin 29.4 pg Mean Corpuscular Hemoglobin Concent 33.5 g/dL Red Cell Distribution Width 12.0 % Platelet Count 268 10^3/uL Mean Platelet Volume 10.5 fL Neutrophils (%) (Auto) 82.9 % Lymphocytes (%) (Auto) 11.7 % Monocytes (%) (Auto) 5.4 % Neutrophils # (Auto) 6.3 10^3/uL Lymphocytes # (Auto) 0.89 10^3/uL1 Monocytes # (Auto) 0.4 10^3/uL Absolute Immature Granulocyte (auto 0.12 10^3 u/L Absolute Eosinophils (auto) 0.0 10^3/uL Immature Granulocytes % 1.60 % Eosinophils % 0.0 % Basophils % 0.0 % Basophils # 0.0 10^3/uL Sodium Level 140 mmol/L Potassium Level 4.7 mmol/L Chloride Level 104.0 mmol/L Carbon Dioxide Level 27.6 mmol/L Anion Gap 13.1 Blood Urea Nitrogen 14 mg/dL Creatinine 0.62 mg/dL Estimated GFR () 131.8 Est GFR (CKD-EPI)(Non-Afr Nigerian) 108.9 BUN/Creatinine Ratio 22.0 Glucose Level 121 mg/dL Calcium Level 8.8 mg/dL Total Bilirubin 0.4 mg/dL Aspartate Amino Transf (AST/SGOT) 26 U/L Alanine Aminotransferase (ALT/SGPT) 37 U/L Alkaline Phosphatase 42 U/L Total Protein 6.7 g/dL Albumin 2.5 g/dL Globulin 4.2 Albumin/Globulin Ratio 0.595 Blood Gas Sample Site RT RADIAL ARTERY Blood Gas pH 7.405 Blood Gas PCO2 41.1 mmHg Blood Gas PO2 82.5 mmHg Blood Gas HCO3 25.2 mmol/L Blood Gas Base Excess 0.4 mmol/L Lucas Test POSITIVE Arterial Blood Oxygen Saturation 95.5 % Deoxyhemoglobin 4.5 % Carboxyhemoglobin 0.6 % Methemoglobin 0.3 % Total Hemoglobin 14.6 % Total Oxygen Concentration 19.5 % Blood Gas Temperature 37 Oxygen Delivery Method (LAB) BIPAP15/7 FiO2 99 % Total Carbon Dioxide 26.4 mmol/L Current Medications Medications (Trade) Dose Ordered Sig/Davon Route PRN Reason Start Time Stop Time Status Last Admin Dose Admin Remdesivir 200 mg/ Sodium Chloride 140 ml @ 120.69 mls/ hr OT STAT IV 04/28/21 19:53 04/29/21 08:10 DC 04/28/21 19:53 Remdesivir 100 mg/ Sodium Chloride 120 ml @ 111.111 mls/hr Q24HRS IV 04/29/21 20:00 05/02/21 21:05 05/01/21 20:50 Famotidine (Pepcid) 20 mg BID PO 04/28/21 21:00 05/28/21 20:59 05/02/21 09:29 Sucralfate (Carafate) 1 gm ACHS PO 04/28/21 21:00 05/28/21 20:59 05/02/21 07:30 Enoxaparin Sodium (Lovenox) 40 mg Q24HRS SQ 04/28/21 20:00 05/28/21 19:59 05/01/21 20:50 Sucralfate (Carafate) 1 gm STK-MED ONCE PO 04/28/21 20:56 04/28/21 20:56 DC Lorazepam (Ativan) 1 mg Q4HR PRN IV ANXIETY 04/29/21 00:00 05/29/21 00:00 04/30/21 22:30 Lorazepam (Ativan) 0.5 mg Q4HR PRN IV ANXIETY 04/29/21 00:00 05/29/21 00:00 Fentanyl Citrate (Sublimaze) 50 mcg STK-MED ONCE .ROUTE 04/29/21 11:37 04/29/21 11:38 DC Fentanyl Citrate (Sublimaze) 12.5 mcg OT ONCE IV 04/29/21 15:00 04/29/21 15:06 DC 04/29/21 13:35 Acetaminophen (Tylenol) 650 mg Q6HR PRN PO PAIN 1 - 3 04/30/21 18:00 05/02/21 18:00 05/01/21 06:28 Dexmedetomidine HCl 200 mcg/ Sodium Chloride 50 ml @ 0 mls/hr IV 05/01/21 10:30 05/01/21 11:28 DC Sodium Chloride 250 ml @ ud STK-MED ONCE .ROUTE 05/01/21 20:40 05/01/21 20:40 DC Course Sepsis Screening Results: Posi: POSITIVE Sepsis Qualifier/Stage: SEPSIS RISK Vitals & review Data Vital Sign - Last 24 Hours 05/02/21 05/02/21 05/02/21 05/02/21 08:00 08:07 08:15 08:22 Pulse 64 45 47 83 Resp 24 21 19 33 B/P (MAP) 104/59 (74) Pulse Ox 93 95 95 86 O2 Delivery S/T FiO2 100 05/02/21 05/02/21 05/02/21 05/02/21 08:31 08:37 08:45 08:52 Pulse 69 68 65 75 Resp 24 31 30 35 B/P (MAP) 137/87 (104) Pulse Ox 95 95 93 91 05/02/21 05/02/21 05/02/21 05/02/21 08:54 09:00 09:00 09:07 Pulse 62 64 64 Resp 10 24 38 B/P (MAP) 119/74 (89) Pulse Ox 89 93 89 O2 Delivery Bi-pap Bi-pap O2 Flow Rate 100.00 FiO2 99 05/02/21 05/02/21 05/02/21 05/02/21 09:10 09:16 09:22 09:30 Pulse 106 62 63 83 Resp 26 29 32 29 B/P (MAP) 160/72 (101) 135/77 (96) Pulse Ox 89 89 90 81 O2 Delivery Comfort Doug O2 Flow Rate 50.00 FiO2 100 05/02/21 05/02/21 05/02/21 05/02/21 09:37 09:46 09:52 10:00 Pulse 73 74 70 55 Resp 16 34 27 16 B/P (MAP) 174/107 (129) Pulse Ox 85 82 83 95 O2 Delivery S/T FiO2 100 05/02/21 05/02/21 05/02/21 05/02/21 10:00 10:07 10:15 10:22 Pulse 60 66 68 65 Resp 23 36 23 B/P (MAP) 115/77 (90) 114/79 (91) Pulse Ox 92 93 92 92 Laboratory Tests Test 05/01/21 04:32 05/01/21 11:20 05/02/21 06:37 05/02/21 08:25 White Blood Count 10.2 10^3/uL 7.6 10^3/uL Red Blood Count 4.50 10^6/uL 4.62 10^6/uL Hemoglobin 13.3 g/dL 13.6 g/dL Hematocrit 39.6 % 40.6 % Mean Corpuscular Volume 88.0 fL 87.9 fL Mean Corpuscular Hemoglobin 29.6 pg 29.4 pg Mean Corpuscular Hemoglobin Concent 33.6 g/dL 33.5 g/dL Red Cell Distribution Width 12.1 % 12.0 % Platelet Count 234 10^3/uL 268 10^3/uL Mean Platelet Volume 10.4 fL 10.5 fL Sodium Level 139 mmol/L 140 mmol/L Potassium Level 3.9 mmol/L 4.7 mmol/L Chloride Level 105.0 mmol/L 104.0 mmol/L Carbon Dioxide Level 26.8 mmol/L 27.6 mmol/L Anion Gap 11.1 13.1 Blood Urea Nitrogen 12 mg/dL 14 mg/dL Creatinine 0.56 mg/dL 0.62 mg/dL Estimated GFR () 148.2 131.8 Est GFR (CKD-EPI)(Non-Afr Nigerian) 122.5 108.9 BUN/Creatinine Ratio 21.0 22.0 Glucose Level 87 mg/dL 121 mg/dL Calcium Level 8.8 mg/dL 8.8 mg/dL Total Bilirubin 0.5 mg/dL 0.4 mg/dL Aspartate Amino Transf (AST/SGOT) 36 U/L 26 U/L Alanine Aminotransferase (ALT/SGPT) 39 U/L 37 U/L Alkaline Phosphatase 43 U/L 42 U/L Total Protein 6.7 g/dL 6.7 g/dL Albumin 2.5 g/dL 2.5 g/dL Globulin 4.2 4.2 Albumin/Globulin Ratio 0.595 0.595 Blood Gas Sample Site RT RADIAL ARTERY RT RADIAL ARTERY Blood Gas pH 7.459 7.405 Blood Gas PCO2 31.9 mmHg 41.1 mmHg Blood Gas PO2 86.7 mmHg 82.5 mmHg Blood Gas HCO3 22.1 mmol/L 25.2 mmol/L Blood Gas Base Excess -0.8 mmol/L 0.4 mmol/L Lucas Test POSITIVE POSITIVE Arterial Blood Oxygen Saturation 96.2 % 95.5 % Deoxyhemoglobin 3.8 % 4.5 % Carboxyhemoglobin 0.1 % 0.6 % Methemoglobin 0.1 % 0.3 % Total Hemoglobin 14.8 % 14.6 % Total Oxygen Concentration 20.0 % 19.5 % Blood Gas Temperature 37.0 37 Oxygen Delivery Method (LAB) BIPAP BIPAP15/[address] Mode ST FiO2 80 % 99 % Total Carbon Dioxide 23.1 mmol/L 26.4 mmol/L Neutrophils (%) (Auto) 82.9 % Lymphocytes (%) (Auto) 11.7 % Monocytes (%) (Auto) 5.4 % Neutrophils # (Auto) 6.3 10^3/uL Lymphocytes # (Auto) 0.89 10^3/uL1 Monocytes # (Auto) 0.4 10^3/uL Absolute Immature Granulocyte (auto 0.12 10^3 u/L Absolute Eosinophils (auto) 0.0 10^3/uL Immature Granulocytes % 1.60 % Eosinophils % 0.0 % Basophils % 0.0 % Basophils # 0.0 10^3/uL Current Medications Medications (Trade) Dose Ordered Sig/Davon PRN Reason Start Time Stop Time Status Last Admin Acetaminophen (Tylenol) 650 mg Q6HR PRN PAIN 1 - 3 04/30/21 18:00 05/02/21 18:00 05/01/21 06:28 Remdesivir 100 mg/ Sodium Chloride 120 ml @ 111.111 mls/hr Q24HRS 04/29/21 20:00 05/02/21 21:05 05/01/21 20:50 LEVEL 1 SEPSIS INFECTION CRITE: ABX Therapy, Cough/Shortness of Breath, Flu- Pneumonia LEVEL 2-SIRS (LIST ALL THAT AP: RR>20/min Cardiovascular Evidence: Not Assessed or None Hematologic Evidence: None/Not assessed Hepatic Evidence: None/Not assessed Metabolic Evidence: None/Not assessed Neurological Evidence: None/Not assessed Respiratory Evidence: Acute Resp failure Renal Evidence: None/Not assessed O2 Sat by Pulse Oximetry: 92 Oxygen Flow Rate: 50.00 Assessment/Plan Assessment/Plan Assessment/Plan ASSESSMENT COVID Pneumonia Acute hypoxic respiratory failure Class 1 obesity PLAN Continuous BiPAP unless eating Dexamethasone daily Counseled on sleeping prone Remdisivir will be completed today. PRN melatonin for bedtime DVT: Lovenox Diet: regular GI: Famotidine Code: Full Critical care time 30 mins CATHERINE DAMON MD May 02, 2021 12:31
--- NOTE | 2021-05-02 13:14 | DIET.OP ---
Nutrition Asmt/Malnutrit 2-17 Actual Date of Review: May 02, 2021 Nutritional Screening: Other (LOS) Diagnosis: covid pneumonia Pertinent Medical Hx/Surgical: none Subjective Information: Pt on BIPAP. Has loss of taste and smell. Eating about 25% of meals. Reported no BM for last few days to MD. Current Diet Order/Nutrition S: regular Pertinent Meds Current Medications Medications (Trade) Dose Ordered Sig/Davon Route PRN Reason Start Time Stop Time Status Last Admin Dose Admin Remdesivir 200 mg/ Sodium Chloride 140 ml @ 120.69 mls/ hr OT STAT IV 04/28/21 19:53 04/29/21 08:10 DC 04/28/21 19:53 Remdesivir 100 mg/ Sodium Chloride 120 ml @ 111.111 mls/hr Q24HRS IV 04/29/21 20:00 05/02/21 21:05 05/01/21 20:50 Famotidine (Pepcid) 20 mg BID PO 04/28/21 21:00 05/28/21 20:59 05/02/21 09:29 Sucralfate (Carafate) 1 gm ACHS PO 04/28/21 21:00 05/28/21 20:59 05/02/21 11:30 Enoxaparin Sodium (Lovenox) 40 mg Q24HRS SQ 04/28/21 20:00 05/28/21 19:59 05/01/21 20:50 Sucralfate (Carafate) 1 gm STK-MED ONCE PO 04/28/21 20:56 04/28/21 20:56 DC Lorazepam (Ativan) 1 mg Q4HR PRN IV ANXIETY 04/29/21 00:00 05/29/21 00:00 04/30/21 22:30 Lorazepam (Ativan) 0.5 mg Q4HR PRN IV ANXIETY 04/29/21 00:00 05/29/21 00:00 Fentanyl Citrate (Sublimaze) 50 mcg STK-MED ONCE .ROUTE 04/29/21 11:37 04/29/21 11:38 DC Fentanyl Citrate (Sublimaze) 12.5 mcg OT ONCE IV 04/29/21 15:00 04/29/21 15:06 DC 04/29/21 13:35 Acetaminophen (Tylenol) 650 mg Q6HR PRN PO PAIN 1 - 3 04/30/21 18:00 05/02/21 18:00 05/01/21 06:28 Dexmedetomidine HCl 200 mcg/ Sodium Chloride 50 ml @ 0 mls/hr IV 05/01/21 10:30 05/01/21 11:28 DC Sodium Chloride 250 ml @ ud STK-MED ONCE .ROUTE 05/01/21 20:40 05/01/21 20:40 DC Pertinent Labs Laboratory Tests Test 05/01/21 04:32 05/01/21 11:20 05/02/21 06:37 05/02/21 08:25 White Blood Count 10.2 10^3/uL 7.6 10^3/uL Red Blood Count 4.50 10^6/uL 4.62 10^6/uL Hemoglobin 13.3 g/dL 13.6 g/dL Hematocrit 39.6 % 40.6 % Mean Corpuscular Volume 88.0 fL 87.9 fL Mean Corpuscular Hemoglobin 29.6 pg 29.4 pg Mean Corpuscular Hemoglobin Concent 33.6 g/dL 33.5 g/dL Red Cell Distribution Width 12.1 % 12.0 % Platelet Count 234 10^3/uL 268 10^3/uL Mean Platelet Volume 10.4 fL 10.5 fL Sodium Level 139 mmol/L 140 mmol/L Potassium Level 3.9 mmol/L 4.7 mmol/L Chloride Level 105.0 mmol/L 104.0 mmol/L Carbon Dioxide Level 26.8 mmol/L 27.6 mmol/L Anion Gap 11.1 13.1 Blood Urea Nitrogen 12 mg/dL 14 mg/dL Creatinine 0.56 mg/dL 0.62 mg/dL Estimated GFR () 148.2 131.8 Est GFR (CKD-EPI)(Non-Afr [place]an) 122.5 108.9 BUN/Creatinine Ratio 21.0 22.0 Glucose Level 87 mg/dL 121 mg/dL Calcium Level 8.8 mg/dL 8.8 mg/dL Total Bilirubin 0.5 mg/dL 0.4 mg/dL Aspartate Amino Transf (AST/SGOT) 36 U/L 26 U/L Alanine Aminotransferase (ALT/SGPT) 39 U/L 37 U/L Alkaline Phosphatase 43 U/L 42 U/L Total Protein 6.7 g/dL 6.7 g/dL Albumin 2.5 g/dL 2.5 g/dL Globulin 4.2 4.2 Albumin/Globulin Ratio 0.595 0.595 Blood Gas Sample Site RT RADIAL ARTERY RT RADIAL ARTERY Blood Gas pH 7.459 7.405 Blood Gas PCO2 31.9 mmHg 41.1 mmHg Blood Gas PO2 86.7 mmHg 82.5 mmHg Blood Gas HCO3 22.1 mmol/L 25.2 mmol/L Blood Gas Base Excess -0.8 mmol/L 0.4 mmol/L Lucas Test POSITIVE POSITIVE Arterial Blood Oxygen Saturation 96.2 % 95.5 % Deoxyhemoglobin 3.8 % 4.5 % Carboxyhemoglobin 0.1 % 0.6 % Methemoglobin 0.1 % 0.3 % Total Hemoglobin 14.8 % 14.6 % Total Oxygen Concentration 20.0 % 19.5 % Blood Gas Temperature 37.0 37 Oxygen Delivery Method (LAB) BIPAP BIPAP15/[address] Mode ST FiO2 80 % 99 % Total Carbon Dioxide 23.1 mmol/L 26.4 mmol/L Neutrophils (%) (Auto) 82.9 % Lymphocytes (%) (Auto) 11.7 % Monocytes (%) (Auto) 5.4 % Neutrophils # (Auto) 6.3 10^3/uL Lymphocytes # (Auto) 0.89 10^3/uL1 Monocytes # (Auto) 0.4 10^3/uL Absolute Immature Granulocyte (auto 0.12 10^3 u/L Absolute Eosinophils (auto) 0.0 10^3/uL Immature Granulocytes % 1.60 % Eosinophils % 0.0 % Basophils % 0.0 % Basophils # 0.0 10^3/uL Height (Feet): 5 Height (Inches): 5 Current Weight: 208 Usual Weight: 225 %UBW: 92 %IBW: 166 Recent Weight Change: Yes (wt is down 17# from admission wt) Weight Status: Obese GI Symptoms: Constipation Food Allergies: No Cultural/Ethnic/Baptist Cookie: none known Usual Diet at Home: regular Skin Integrity/Comment: No Current %PO: Can't Poor(25-49%) Calories/Kcals/K-25 kcal/kg IBW Kcals Calculated: 5542-1696 kcal-wt loss Protein g/k-1.5 g/kg IBW Protein Calculated: 56-85g Fluid: ml: 2363 ml (25 ml/kg) Nutritional Problem: Nutr. Problems Present Problems: Inadequate oral intake Etiology: covid pneumonia/reduced appetite Signs/Symptoms: 25% po intake of most meals meeting approximately 32% of caloric needs and wt documented as down 17# from admission wt Recommendations by RD: Protein supplementation RD Comments: 1. Continue regular diet. Encourage po intake. Small frequent meals and snacks. 2. Recommend Boost BID to help meet nutrition needs. 3. Monitor wt and po intake Expected Outcomes 65-100% po intake of most meals to meet 100% of nutrition needs for wt loss. discharge on regular diet Malnutrtion/Nutrition Risk Edu: No MD Notificiation Needed?: No Viviane Martini May 02, 2021 13:14
[2021-05-02] MEDS: REMDESIVIR (EUA) 100 MG in NS 100ML 100 ML IV SCH (20:45)
[2021-05-02] MEDS: LOVENOX SQ SCH (21:30)
--- NOTE | 2021-05-02 21:51 | TELE.CONS ---
Review of Systems Constitutional: No: Fever, Chills, Sweats Eyes: No: Pain, Vision change ENT: No: Nose congestion, Mouth pain Respiratory: SOB with excertion; No: Cough, Dry, Hemoptysis Cardiovascular: No: Chest Pain, Palpitations, Orthopnea Gastrointestinal: No: Nausea, Vomiting, Abdominal Pain Genitourinary: No Dysuria, No Frequency, No Incontinence Musculoskeletal: No: neck pain, shoulder pain, back pain Skin: No: Rash, Lesions Neurological: No: Weakness, Numbness Allergies: Coded Allergies: ibuprofen (Verified Allergy, Unknown, 04/29/21) naproxen (Verified Allergy, Unknown, 04/29/21) VITALS REVIEW VITALS Vital Sign - Last 24 Hours 05/02/21 05/02/21 05/02/21 05/02/21 08:00 08:07 08:15 08:22 Pulse 64 45 47 83 Resp 24 21 19 33 B/P (MAP) 104/59 (74) Pulse Ox 93 95 95 86 O2 Delivery S/T FiO2 100 05/02/21 05/02/21 05/02/21 05/02/21 08:31 08:37 08:45 08:52 Pulse 69 68 65 75 Resp 24 31 30 35 B/P (MAP) 137/87 (104) Pulse Ox 95 95 93 91 05/02/21 05/02/21 05/02/21 05/02/21 08:54 09:00 09:00 09:07 Pulse 62 64 64 Resp 10 24 38 B/P (MAP) 119/74 (89) Pulse Ox 89 93 89 O2 Delivery Bi-pap Bi-pap O2 Flow Rate 100.00 FiO2 99 05/02/21 05/02/21 05/02/21 05/02/21 09:10 09:16 09:22 09:30 Pulse 106 62 63 83 Resp 26 29 32 29 B/P (MAP) 160/72 (101) 135/77 (96) Pulse Ox 89 89 90 81 O2 Delivery Comfort Doug O2 Flow Rate 50.00 FiO2 100 05/02/21 05/02/21 05/02/21 05/02/21 09:37 09:46 09:52 10:00 Pulse 73 74 70 55 Resp 16 34 27 16 B/P (MAP) 174/107 (129) Pulse Ox 85 82 83 95 O2 Delivery S/T FiO2 100 05/02/21 05/02/21 05/02/21 05/02/21 10:00 10:07 10:15 10:22 Pulse 60 66 68 65 Resp 23 36 23 B/P (MAP) 115/77 (90) 114/79 (91) Pulse Ox 92 93 92 92 05/02/21 05/02/21 05/02/21 05/02/21 12:00 12:00 12:33 14:00 Temp 97.9 Pulse 69 65 Resp 16 16 Pulse Ox 94 95 O2 Delivery S/T Bi-pap S/T O2 Flow Rate 100.00 FiO2 100 100 05/02/21 05/02/21 05/02/21 05/02/21 16:00 16:30 18:00 19:24 Pulse 60 53 60 Resp 22 25 23 Pulse Ox 94 96 95 O2 Delivery S/T Bi-pap S/T Bi-pap O2 Flow Rate 100.00 FiO2 100 100 99 05/02/21 05/02/21 19:43 19:59 Temp 98.8 O2 Delivery Bi-pap O2 Flow Rate 100.00 Intake and Output 05/02/21 07:00 Intake Total 1820 ml Output Total 400 ml Balance 1420 ml VTE VTE Risk Total Score: 5 VTE Risk Score VTE Risk: Score 0-1 = Low Risk (Aggressive mobilization; early ambulation; no VTE prophylaxis required) Score 2: Moderate Risk (Intermittent/Pneumatic Compression Device OR Lovenox/Heparin/Coumadin) Score 3-4: High Risk (Intermittent/Pneumatic Compression Device AND Lovenox/Heparin/Coumadin) Score > or =5: Highest Risk (Intermittent/Pneumatic Compression Device AND Lovenox/Heparin/Coumadin) VTE VTE Present on Admission: No Currently receiving anticoagul: Yes VTE Risk Total Score: 5 Assessment/Plan Assessment/Plan Assessment/Plan ASSESSMENT COVID Pneumonia Acute hypoxic respiratory failure Class 1 obesity PLAN Continuous BiPAP unless eating Dexamethasone daily Counseled on sleeping prone Remdisivir will be completed today. PRN melatonin for bedtime DVT: Lovenox Diet: regular GI: Famotidine Code: Full Critical care time 30 mins Plan ASSESSMENT COVID Pneumonia Acute hypoxic respiratory failure Class 1 obesity PLAN Continuous BiPAP unless eating Dexamethasone daily Counseled on sleeping prone Remdisivi PRN melatonin for bedtime DVT: Lovenox Diet: regular GI: Famotidine Code: Full ICU multidisciplinary rounds conducted with bedside team through mobile HIPAA compliant remote audiovisual connection. All labs, flowsheets, and images reviewed and discussed with ICU bedside team. Plan of care discussed with ICU bedside team (RN Emmie, RT Lorena). Cumulative critical care time spent in directed patient care = 60min CHELA WREN MD May 02, 2021 21:51
[2021-05-03] VITALS (52 sets, daily range): BP systolic 74–121; BP diastolic 37–73
[2021-05-03 05:48] LABS: BASOPHIL % 0.1 % (0.0-0.2); EOSINOPHIL % 0.1 % (0.0-5.0); LYMPHOCYTES # 1.24 10^3/uL1 (1.0-4.8); LYMPHOCYTES % 10.3 % (24.0-44.0); MEAN CORP HGB 28.9 pg (26-34); MONOCYTES # 0.6 10^3/uL (0.3-0.8); MONOCYTES % 5.1 % (5.0-12.0); NEUTROPHILS % 83.2 % (41.0-85.0); PLATELET COUNT 338 10^3/uL (150-400); RED CELL DISTRIBUTION WIDTH 11.9 % (11.5-14.5)
[2021-05-03 05:56] LABS: CALCIUM 8.9 mg/dL (8.4-10.5); CARBON DIOXIDE 28.1 mmol/L (20.0-32)
--- NOTE | 2021-05-03 06:52 | PRM.PN ---
Subjective Subjective Date: May 03, 2021 Time: 06:51 Subjective Patient seen and examined this morning. She denies any acute events overnight. She reports breathing a little better after using BiPAP overnight. She does endorse sleeping prone at night also. Patient was able to eat most of her food for lunch and dinner yesterday. VTE VTE Risk Total Score: 5 VTE Risk Score VTE Risk: Score 0-1 = Low Risk (Aggressive mobilization; early ambulation; no VTE prophylaxis required) Score 2: Moderate Risk (Intermittent/Pneumatic Compression Device OR Lovenox/Heparin/Coumadin) Score 3-4: High Risk (Intermittent/Pneumatic Compression Device AND Lovenox/Heparin/Coumadin) Score > or =5: Highest Risk (Intermittent/Pneumatic Compression Device AND Lovenox/Heparin/Coumadin) Review of Systems Constitutional: No: Fever, Chills, Sweats Eyes: No: Pain, Vision change ENT: No: Nose congestion, Mouth pain Respiratory: SOB with excertion; No: Cough, Dry, Hemoptysis Cardiovascular: No: Chest Pain, Palpitations, Orthopnea Gastrointestinal: No: Nausea, Vomiting, Abdominal Pain Genitourinary: No Dysuria, No Frequency, No Incontinence Musculoskeletal: No: neck pain, shoulder pain, back pain Skin: No: Rash, Lesions Neurological: No: Weakness, Numbness Allergies: Coded Allergies: ibuprofen (Verified Allergy, Unknown, 04/29/21) naproxen (Verified Allergy, Unknown, 04/29/21) Objective General: Alert, Oriented X3, Cooperative HEENT: Atraumatic, PERRLA, EOMI Neck: Supple Lungs: Clear to auscultation, Normal air movement Heart: No murmurs, Other (mild bradycardia, asymptomatic ) Abdomen: Normal bowel sounds, Soft Extremities: No clubbing, No cyanosis Skin: No rashes, No breakdown Neuro: Normal speech, Normal tone Psych/Mental Status: Mental status NL, Mood NL All Results(Lab/Rad) Laboratory Tests Test 05/02/21 06:37 05/02/21 08:25 White Blood Count 7.6 10^3/uL Red Blood Count 4.62 10^6/uL Hemoglobin 13.6 g/dL Hematocrit 40.6 % Mean Corpuscular Volume 87.9 fL Mean Corpuscular Hemoglobin 29.4 pg Mean Corpuscular Hemoglobin Concent 33.5 g/dL Red Cell Distribution Width 12.0 % Platelet Count 268 10^3/uL Mean Platelet Volume 10.5 fL Neutrophils (%) (Auto) 82.9 % Lymphocytes (%) (Auto) 11.7 % Monocytes (%) (Auto) 5.4 % Neutrophils # (Auto) 6.3 10^3/uL Lymphocytes # (Auto) 0.89 10^3/uL1 Monocytes # (Auto) 0.4 10^3/uL Absolute Immature Granulocyte (auto 0.12 10^3 u/L Absolute Eosinophils (auto) 0.0 10^3/uL Immature Granulocytes % 1.60 % Eosinophils % 0.0 % Basophils % 0.0 % Basophils # 0.0 10^3/uL Sodium Level 140 mmol/L Potassium Level 4.7 mmol/L Chloride Level 104.0 mmol/L Carbon Dioxide Level 27.6 mmol/L Anion Gap 13.1 Blood Urea Nitrogen 14 mg/dL Creatinine 0.62 mg/dL Estimated GFR () 131.8 Est GFR (CKD-EPI)(Non-Afr [place]an) 108.9 BUN/Creatinine Ratio 22.0 Glucose Level 121 mg/dL Calcium Level 8.8 mg/dL Total Bilirubin 0.4 mg/dL Aspartate Amino Transf (AST/SGOT) 26 U/L Alanine Aminotransferase (ALT/SGPT) 37 U/L Alkaline Phosphatase 42 U/L Total Protein 6.7 g/dL Albumin 2.5 g/dL Globulin 4.2 Albumin/Globulin Ratio 0.595 Blood Gas Sample Site RT RADIAL ARTERY Blood Gas pH 7.405 Blood Gas PCO2 41.1 mmHg Blood Gas PO2 82.5 mmHg Blood Gas HCO3 25.2 mmol/L Blood Gas Base Excess 0.4 mmol/L Lucas Test POSITIVE Arterial Blood Oxygen Saturation 95.5 % Deoxyhemoglobin 4.5 % Carboxyhemoglobin 0.6 % Methemoglobin 0.3 % Total Hemoglobin 14.6 % Total Oxygen Concentration 19.5 % Blood Gas Temperature 37 Oxygen Delivery Method (LAB) BIPAP15/7 FiO2 99 % Total Carbon Dioxide 26.4 mmol/L Current Medications Medications (Trade) Dose Ordered Sig/Davno Route PRN Reason Start Time Stop Time Status Last Admin Dose Admin Remdesivir 200 mg/ Sodium Chloride 140 ml @ 120.69 mls/ hr OT STAT IV 04/28/21 19:53 04/29/21 08:10 DC 04/28/21 19:53 Remdesivir 100 mg/ Sodium Chloride 120 ml @ 111.111 mls/hr Q24HRS IV 04/29/21 20:00 05/02/21 21:05 05/01/21 20:50 Famotidine (Pepcid) 20 mg BID PO 04/28/21 21:00 05/28/21 20:59 05/02/21 09:29 Sucralfate (Carafate) 1 gm ACHS PO 04/28/21 21:00 05/28/21 20:59 05/02/21 07:30 Enoxaparin Sodium (Lovenox) 40 mg Q24HRS SQ 04/28/21 20:00 05/28/21 19:59 05/01/21 20:50 Sucralfate (Carafate) 1 gm STK-MED ONCE PO 04/28/21 20:56 04/28/21 20:56 DC Lorazepam (Ativan) 1 mg Q4HR PRN IV ANXIETY 04/29/21 00:00 05/29/21 00:00 04/30/21 22:30 Lorazepam (Ativan) 0.5 mg Q4HR PRN IV ANXIETY 04/29/21 00:00 05/29/21 00:00 Fentanyl Citrate (Sublimaze) 50 mcg STK-MED ONCE .ROUTE 04/29/21 11:37 04/29/21 11:38 DC Fentanyl Citrate (Sublimaze) 12.5 mcg OT ONCE IV 04/29/21 15:00 04/29/21 15:06 DC 04/29/21 13:35 Acetaminophen (Tylenol) 650 mg Q6HR PRN PO PAIN 1 - 3 04/30/21 18:00 05/02/21 18:00 05/01/21 06:28 Dexmedetomidine HCl 200 mcg/ Sodium Chloride 50 ml @ 0 mls/hr IV 05/01/21 10:30 05/01/21 11:28 DC Sodium Chloride 250 ml @ ud STK-MED ONCE .ROUTE 05/01/21 20:40 05/01/21 20:40 DC Course Sepsis Screening Results: Posi: POSITIVE Sepsis Qualifier/Stage: SEPSIS RISK Vitals & review Data Vital Sign - Last 24 Hours 05/02/21 05/02/21 05/02/21 05/02/21 08:00 08:07 08:15 08:22 Pulse 64 45 47 83 Resp 24 21 19 33 B/P (MAP) 104/59 (74) Pulse Ox 93 95 95 86 O2 Delivery S/T FiO2 100 05/02/21 05/02/21 05/02/21 05/02/21 08:31 08:37 08:45 08:52 Pulse 69 68 65 75 Resp 24 31 30 35 B/P (MAP) 137/87 (104) Pulse Ox 95 95 93 91 05/02/21 05/02/21 05/02/21 05/02/21 08:54 09:00 09:00 09:07 Pulse 62 64 64 Resp 10 24 38 B/P (MAP) 119/74 (89) Pulse Ox 89 93 89 O2 Delivery Bi-pap Bi-pap O2 Flow Rate 100.00 FiO2 99 05/02/21 05/02/21 05/02/21 05/02/21 09:10 09:16 09:22 09:30 Pulse 106 62 63 83 Resp 26 29 32 29 B/P (MAP) 160/72 (101) 135/77 (96) Pulse Ox 89 89 90 81 O2 Delivery Comfort Doug O2 Flow Rate 50.00 FiO2 100 05/02/21 05/02/21 05/02/21 05/02/21 09:37 09:46 09:52 10:00 Pulse 73 74 70 55 Resp 16 34 27 16 B/P (MAP) 174/107 (129) Pulse Ox 85 82 83 95 O2 Delivery S/T FiO2 100 05/02/21 05/02/21 05/02/21 05/02/21 10:00 10:07 10:15 10:22 Pulse 60 66 68 65 Resp 23 36 23 B/P (MAP) 115/77 (90) 114/79 (91) Pulse Ox 92 93 92 92 Laboratory Tests Test 05/01/21 04:32 05/01/21 11:20 05/02/21 06:37 05/02/21 08:25 White Blood Count 10.2 10^3/uL 7.6 10^3/uL Red Blood Count 4.50 10^6/uL 4.62 10^6/uL Hemoglobin 13.3 g/dL 13.6 g/dL Hematocrit 39.6 % 40.6 % Mean Corpuscular Volume 88.0 fL 87.9 fL Mean Corpuscular Hemoglobin 29.6 pg 29.4 pg Mean Corpuscular Hemoglobin Concent 33.6 g/dL 33.5 g/dL Red Cell Distribution Width 12.1 % 12.0 % Platelet Count 234 10^3/uL 268 10^3/uL Mean Platelet Volume 10.4 fL 10.5 fL Sodium Level 139 mmol/L 140 mmol/L Potassium Level 3.9 mmol/L 4.7 mmol/L Chloride Level 105.0 mmol/L 104.0 mmol/L Carbon Dioxide Level 26.8 mmol/L 27.6 mmol/L Anion Gap 11.1 13.1 Blood Urea Nitrogen 12 mg/dL 14 mg/dL Creatinine 0.56 mg/dL 0.62 mg/dL Estimated GFR () 148.2 131.8 Est GFR (CKD-EPI)(Non-Afr [place]an) 122.5 108.9 BUN/Creatinine Ratio 21.0 22.0 Glucose Level 87 mg/dL 121 mg/dL Calcium Level 8.8 mg/dL 8.8 mg/dL Total Bilirubin 0.5 mg/dL 0.4 mg/dL Aspartate Amino Transf (AST/SGOT) 36 U/L 26 U/L Alanine Aminotransferase (ALT/SGPT) 39 U/L 37 U/L Alkaline Phosphatase 43 U/L 42 U/L Total Protein 6.7 g/dL 6.7 g/dL Albumin 2.5 g/dL 2.5 g/dL Globulin 4.2 4.2 Albumin/Globulin Ratio 0.595 0.595 Blood Gas Sample Site RT RADIAL ARTERY RT RADIAL ARTERY Blood Gas pH 7.459 7.405 Blood Gas PCO2 31.9 mmHg 41.1 mmHg Blood Gas PO2 86.7 mmHg 82.5 mmHg Blood Gas HCO3 22.1 mmol/L 25.2 mmol/L Blood Gas Base Excess -0.8 mmol/L 0.4 mmol/L Lucas Test POSITIVE POSITIVE Arterial Blood Oxygen Saturation 96.2 % 95.5 % Deoxyhemoglobin 3.8 % 4.5 % Carboxyhemoglobin 0.1 % 0.6 % Methemoglobin 0.1 % 0.3 % Total Hemoglobin 14.8 % 14.6 % Total Oxygen Concentration 20.0 % 19.5 % Blood Gas Temperature 37.0 37 Oxygen Delivery Method (LAB) BIPAP BIPAP15/[address] FiO2 80 % 99 % Total Carbon Dioxide 23.1 mmol/L 26.4 mmol/L Neutrophils (%) (Auto) 82.9 % Lymphocytes (%) (Auto) 11.7 % Monocytes (%) (Auto) 5.4 % Neutrophils # (Auto) 6.3 10^3/uL Lymphocytes # (Auto) 0.89 10^3/uL1 Monocytes # (Auto) 0.4 10^3/uL Absolute Immature Granulocyte (auto 0.12 10^3 u/L Absolute Eosinophils (auto) 0.0 10^3/uL Immature Granulocytes % 1.60 % Eosinophils % 0.0 % Basophils % 0.0 % Basophils # 0.0 10^3/uL Current Medications Medications (Trade) Dose Ordered Sig/Davon PRN Reason Start Time Stop Time Status Last Admin Acetaminophen (Tylenol) 650 mg Q6HR PRN PAIN 1 - 3 04/30/21 18:00 05/02/21 18:00 05/01/21 06:28 Remdesivir 100 mg/ Sodium Chloride 120 ml @ 111.111 mls/hr Q24HRS 04/29/21 20:00 05/02/21 21:05 05/01/21 20:50 LEVEL 1 SEPSIS INFECTION CRITE: ABX Therapy, Cough/Shortness of Breath, Flu- Pneumonia LEVEL 2-SIRS (LIST ALL THAT AP: RR>20/min Cardiovascular Evidence: Not Assessed or None Hematologic Evidence: None/Not assessed Hepatic Evidence: None/Not assessed Metabolic Evidence: None/Not assessed Neurological Evidence: None/Not assessed Respiratory Evidence: Acute Resp failure Renal Evidence: None/Not assessed O2 Sat by Pulse Oximetry: 95 Oxygen Flow Rate: 100.00 Assessment/Plan Assessment/Plan Assessment/Plan ASSESSMENT COVID Pneumonia Acute hypoxic respiratory failure Class 1 obesity PLAN Continuous BiPAP unless eating Dexamethasone daily Counseled on sleeping prone Remdesivir completed PRN melatonin for bedtime DVT: Lovenox Diet: regular Docusate BID for constipation GI: Famotidine Code: Full dispo: no changes to plan at this time. continue to monitor for improvement in respiratory status CATHERINE DAMON MD May 03, 2021 06:52
--- NOTE | 2021-05-03 07:00 | NUR ---
REPORT GIVEN TO KALPANA HURTADOQUISHED PATIENT CARE
[2021-05-03] MEDS: CARAFATE PO SCH ×4 (08:16→21:01)
--- NOTE | 2021-05-03 08:32 | NUR ---
STATUS PT SITTING UP TO EAT BREAKFAST, PT PLACE DON COMFORT DORIS AND NON REBREATHER. PT DESATTED TO 79% WITHIN ONE MINUTE. PT WAS THEN PLACED BACK ON BIPAP. PT O2 SATS 94% ON BI PAP. PT SITTING UP IN CHAIR. NO S/S OF DISTRESS NOTED. CALL LIGHT WITHIN REACH. CHAIR IN LOCKED POSITION.
[2021-05-03 09:06] LABS: ABG PCO2 37.1 mmHg (35.0-45.0); ABG PH 7.416 (7.350-7.450); BE(B) -0.8 mmol/L (-2.0-2.0); HCO3act 23.3 mmol/L (22.0-26.0); pO2 149.3 mmHg (80.0-100.0)
[2021-05-03] MEDS: PEPCID PO SCH ×2 (09:16→21:01)
[2021-05-03] MEDS: DEXAMETHASONE 10 MG/ML VIAL IV SCH (09:16)
--- NOTE | 2021-05-03 12:06 | PCM.EKG ---
[facility] Test Date: 2021-05-03 Test Time: 10:49:40 Pat Name: SHAMIR RAHMAN Department: Room: ICU6 A Gender: F Sole Tacker: : [id number] Requested By: CATHERINE DAMON Order Number: [id number] Reading MD: Measurements Intervals Gail Rate: 65 P: 69 MD: 132 QRS: -40 QRSD: 106 T: -7 QT: 411 QTc: 428 Interpretive Statements Sinus rhythm Left axis deviation Borderline T abnormalities, inferior leads No previous ECG available for comparison Please click the below link to view image of tracing.
[2021-05-03] MEDS ORDERED: DULCOLAX EC TABLET PO STA (13:45)
--- NOTE | 2021-05-03 16:05 | PRM.PN ---
Subjective Events since last encounter feels better , tried HFNC for 20 min while eating today Symptoms, Observation: Laboratory Tests Test 05/03/21 05:20 05/03/21 07:55 05/03/21 10:10 White Blood Count 12.0 10^3/uL Red Blood Count 4.71 10^6/uL Hemoglobin 13.6 g/dL Hematocrit 41.1 % Mean Corpuscular Volume 87.3 fL Mean Corpuscular Hemoglobin 28.9 pg Mean Corpuscular Hemoglobin Concent 33.1 g/dL Red Cell Distribution Width 11.9 % Platelet Count 338 10^3/uL Mean Platelet Volume 10.2 fL Neutrophils (%) (Auto) 83.2 % Lymphocytes (%) (Auto) 10.3 % Monocytes (%) (Auto) 5.1 % Neutrophils # (Auto) 10.0 10^3/uL Lymphocytes # (Auto) 1.24 10^3/uL1 Monocytes # (Auto) 0.6 10^3/uL Absolute Immature Granulocyte (auto 0.14 10^3 u/L Absolute Eosinophils (auto) 0.0 10^3/uL Immature Granulocytes % 1.20 % Eosinophils % 0.1 % Basophils % 0.1 % Basophils # 0.0 10^3/uL Sodium Level 140 mmol/L Potassium Level 4.3 mmol/L Chloride Level 103.0 mmol/L Carbon Dioxide Level 28.1 mmol/L Anion Gap 13.2 Blood Urea Nitrogen 18 mg/dL Creatinine 0.65 mg/dL Estimated GFR () 124.8 Est GFR (CKD-EPI)(Non-Afr [place]) 103.1 BUN/Creatinine Ratio 27.0 Glucose Level 107 mg/dL Calcium Level 8.9 mg/dL Total Bilirubin 0.6 mg/dL Aspartate Amino Transf (AST/SGOT) 26 U/L Alanine Aminotransferase (ALT/SGPT) 31 U/L Alkaline Phosphatase 41 U/L Total Protein 6.8 g/dL Albumin 2.6 g/dL Globulin 4.2 Albumin/Globulin Ratio 0.619 Blood Gas Sample Site LEFT RADIAL ARTERY Blood Gas pH 7.416 Blood Gas PCO2 37.1 mmHg Blood Gas PO2 149.3 mmHg Blood Gas HCO3 23.3 mmol/L Blood Gas Base Excess -0.8 mmol/L Lucas Test POSITIVE Arterial Blood Oxygen Saturation 98.7 % Deoxyhemoglobin 1.3 % Carboxyhemoglobin 0.4 % Methemoglobin 0.5 % Total Hemoglobin 14.5 % Total Oxygen Concentration 20.2 % Blood Gas Temperature 37.00 Oxygen Delivery Method (LAB) BP 15/7 Blood Gas Vent Mode S/T FiO2 100 % Total Carbon Dioxide 24.4 mmol/L D-Dimer 1.21 mg/L Ferritin 697 ng/mL Lactate Dehydrogenase 329 U/L Current Medications Medications (Trade) Dose Ordered Sig/Davon Route PRN Reason Start Time Stop Time Status Last Admin Dose Admin Remdesivir 200 mg/ Sodium Chloride 140 ml @ 120.69 mls/ hr OT STAT IV 04/28/21 19:53 04/29/21 08:10 DC 04/28/21 19:53 Remdesivir 100 mg/ Sodium Chloride 120 ml @ 111.111 mls/hr Q24HRS IV 04/29/21 20:00 05/02/21 21:05 DC 05/02/21 20:45 Famotidine (Pepcid) 20 mg BID PO 04/28/21 21:00 05/28/21 20:59 05/03/21 09:16 Sucralfate (Carafate) 1 gm ACHS PO 04/28/21 21:00 05/28/21 20:59 05/03/21 12:11 Enoxaparin Sodium (Lovenox) 40 mg Q24HRS SQ 04/28/21 20:00 05/28/21 19:59 05/02/21 21:30 Sucralfate (Carafate) 1 gm STK-MED ONCE PO 04/28/21 20:56 04/28/21 20:56 DC Lorazepam (Ativan) 1 mg Q4HR PRN IV ANXIETY 04/29/21 00:00 05/29/21 00:00 04/30/21 22:30 Lorazepam (Ativan) 0.5 mg Q4HR PRN IV ANXIETY 04/29/21 00:00 05/29/21 00:00 Fentanyl Citrate (Sublimaze) 50 mcg STK-MED ONCE .ROUTE 04/29/21 11:37 04/29/21 11:38 DC Fentanyl Citrate (Sublimaze) 12.5 mcg OT ONCE IV 04/29/21 15:00 04/29/21 15:06 DC 04/29/21 13:35 Acetaminophen (Tylenol) 650 mg Q6HR PRN PO PAIN 1 - 3 04/30/21 18:00 05/02/21 18:00 DC 05/01/21 06:28 Dexmedetomidine HCl 200 mcg/ Sodium Chloride 50 ml @ 0 mls/hr IV 05/01/21 10:30 05/01/21 11:28 DC Sodium Chloride 250 ml @ ud STK-MED ONCE .ROUTE 05/01/21 20:40 05/01/21 20:40 DC Acetaminophen (Tylenol) 650 mg Q6HR PRN PO PAIN 1 - 3 05/02/21 20:30 05/08/21 18:00 Bisacodyl (Dulcolax Ec Tablet) 5 mg STAT STAT PO 05/03/21 13:45 05/03/21 13:46 UNV 05/03/21 14:36 Assessment & Plan Problems/DX: (1) Pneumonia due to COVID-19 virus Provider Note: The pt. is a 35 yo f with obesity and now with COVID PNA on 95% FiO2 BIPAP Plan: Pulm:BIPAP 10/04 95% FiO2 95%, HFNC 100% for meals, self proning at night Cards:BP and HR stable ID:Con't dexamthasone Heme:Check Hb and Keep >7 Endo:con't steroids Neuro:Benzo's and Precedex PRN Renal:Follow UO and Cr GI:Adv diet as tolerated PPx:LMWH and Pepcid GOC:Full code Patient seen through remote audiovisual assessment through HIPAA compliant setup. ICU multidisciplinary rounds conducted with bedside team through HIPAA compliant remote audiovisual connection. All labs, flowsheets, and images reviewed and discussed with ICU bedside team. Plan of care discussed with ICU bedside ROD Barnett Cumulative nonprocedural critical care time spent in directed patient care = 60 min RICHARD MOONEY MD May 03, 2021 16:05
[2021-05-03] MEDS: LOVENOX SQ SCH (20:00)
[2021-05-03] MEDS: TYLENOL PO PRN (20:17)
[2021-05-04] VITALS (69 sets, daily range): BP systolic 56–143; BP diastolic 33–93
[2021-05-04] MEDS: PRECEDEX 400 MCG/100 ML INJECT 100 ML IV SCH (00:49)
[2021-05-04] MEDS: CARAFATE PO SCH ×4 (07:30→21:00)
[2021-05-04] MEDS: TYLENOL PO PRN ×2 (08:47→21:15)
[2021-05-04] MEDS: DEXAMETHASONE 10 MG/ML VIAL IV SCH (08:47)
[2021-05-04] MEDS: PEPCID PO SCH ×2 (08:47→21:00)
[2021-05-04] MEDS: ATIVAN IV PRN ×2 (08:47→22:35)
--- NOTE | 2021-05-04 09:40 | NUR ---
[employer] Dr. Larios on video chat with pt. New order received to leave patient on comfort zachary with non-rebreather as long as she tolerates. RBTO.
[2021-05-04 10:12] LABS: BASOPHIL % 0.1 % (0.0-0.2); EOSINOPHIL % 0.1 % (0.0-5.0); LYMPHOCYTES # 0.75 10^3/uL1 (1.0-4.8); LYMPHOCYTES % 4.4 % (24.0-44.0); MEAN CORP HGB 28.9 pg (26-34); MONOCYTES # 0.7 10^3/uL (0.3-0.8); MONOCYTES % 3.9 % (5.0-12.0); NEUTROPHIL # 15.4 10^3/uL (1.8-7.7); NEUTROPHILS % 90.6 % (41.0-85.0); PLATELET COUNT 334 10^3/uL (150-400); RED CELL DISTRIBUTION WIDTH 11.8 % (11.5-14.5)
[2021-05-04 10:34] LABS: CALCIUM 8.8 mg/dL (8.4-10.5); CARBON DIOXIDE 25.7 mmol/L (20.0-32)
--- NOTE | 2021-05-04 13:57 | TELE.CONS ---
Consultation Reason for Consult: Reason for Consultation: COVID ARDS Review of Systems Constitutional: No: Fever, Chills, Sweats Eyes: No: Pain, Vision change ENT: No: Nose congestion, Mouth pain Respiratory: SOB with excertion; No: Cough, Dry, Hemoptysis Cardiovascular: No: Chest Pain, Palpitations, Orthopnea Gastrointestinal: No: Nausea, Vomiting, Abdominal Pain Genitourinary: No Dysuria, No Frequency, No Incontinence Musculoskeletal: No: neck pain, shoulder pain, back pain Skin: No: Rash, Lesions Neurological: No: Weakness, Numbness Allergies: Coded Allergies: ibuprofen (Verified Allergy, Unknown, 04/29/21) naproxen (Verified Allergy, Unknown, 04/29/21) VITALS REVIEW VITALS Vital Sign - Last 24 Hours 05/04/21 05/04/21 05/04/21 05/04/21 08:01 08:01 08:15 08:30 Pulse 97 62 84 92 Resp 26 24 33 28 B/P (MAP) 101/63 (76) 138/67 (90) 118/64 (82) Pulse Ox 92 92 92 93 O2 Delivery Comfort Doug O2 Flow Rate 50.00 FiO2 100 05/04/21 05/04/21 05/04/21 05/04/21 08:35 08:46 09:00 09:15 Pulse 87 79 76 Resp 13 14 20 B/P (MAP) 116/60 (78) 137/65 (89) 89/55 (66) Pulse Ox 85 89 89 O2 Delivery Comfort Doug O2 Flow Rate 50.00 05/04/21 05/04/21 05/04/21 05/04/21 09:23 09:30 09:45 10:00 Pulse 70 68 69 60 Resp 30 15 30 28 B/P (MAP) 100/67 (78) 87/49 (62) 87/37 (54) 81/38 (52) Pulse Ox 89 89 05/04/21 05/04/21 05/04/21 05/04/21 10:15 10:30 10:45 11:21 Pulse 66 75 60 60 Resp 28 30 27 27 B/P (MAP) 97/48 (64) 98/54 (69) 89/47 (61) Pulse Ox 91 89 93 93 O2 Delivery Comfort Doug O2 Flow Rate 50.00 FiO2 100 LABS LAB RESULTS Laboratory Tests Test 04/29/21 04:35 04/30/21 04:28 05/01/21 04:32 05/01/21 11:20 White Blood Count 6.2 10^3/uL 6.4 10^3/uL 10.2 10^3/uL Red Blood Count 4.64 10^6/uL 4.49 10^6/uL 4.50 10^6/uL Hemoglobin 13.5 g/dL 13.3 g/dL 13.3 g/dL Hematocrit 41.2 % 39.3 % 39.6 % Mean Corpuscular Volume 88.8 fL 87.5 fL 88.0 fL Mean Corpuscular Hemoglobin 29.1 pg 29.6 pg 29.6 pg Mean Corpuscular Hemoglobin Concent 32.8 g/dL 33.8 g/dL 33.6 g/dL Red Cell Distribution Width 12.5 % 12.1 % 12.1 % Platelet Count 162 10^3/uL 195 10^3/uL 234 10^3/uL Mean Platelet Volume 10.9 fL 10.8 fL 10.4 fL Neutrophils (%) (Auto) 72.3 % 70.8 % Lymphocytes (%) (Auto) 19.0 % 20.6 % Monocytes (%) (Auto) 8.4 % 8.4 % Neutrophils # (Auto) 4.5 10^3/uL 4.5 10^3/uL Lymphocytes # (Auto) 1.17 10^3/uL1 1.32 10^3/uL1 Monocytes # (Auto) 0.5 10^3/uL 0.5 10^3/uL Absolute Immature Granulocyte (auto 0.02 10^3 u/L 0.04 10^3 u/L Absolute Eosinophils (auto) 0.0 10^3/uL 0.0 10^3/uL Immature Granulocytes % 0.30 % 0.60 % Eosinophils % 0.0 % 0.0 % Basophils % 0.0 % 0.2 % Basophils # 0.0 10^3/uL 0.0 10^3/uL Sodium Level 141 mmol/L 142 mmol/L 139 mmol/L Potassium Level 4.0 mmol/L 3.9 mmol/L 3.9 mmol/L Chloride Level 106.0 mmol/L 106.0 mmol/L 105.0 mmol/L Carbon Dioxide Level 25.2 mmol/L 26.2 mmol/L 26.8 mmol/L Anion Gap 13.8 13.7 11.1 Blood Urea Nitrogen 12 mg/dL 17 mg/dL 12 mg/dL Creatinine 0.65 mg/dL 0.54 mg/dL 0.56 mg/dL Estimated GFR () 124.8 154.6 148.2 Est GFR (CKD-EPI)(Non-Afr Lao) 103.1 127.7 122.5 BUN/Creatinine Ratio 18.0 31.0 21.0 Glucose Level 98 mg/dL 92 mg/dL 87 mg/dL Calcium Level 8.6 mg/dL 8.4 mg/dL 8.8 mg/dL Total Bilirubin 0.5 mg/dL 0.5 mg/dL 0.5 mg/dL Aspartate Amino Transf (AST/SGOT) 42 U/L 40 U/L 36 U/L Alanine Aminotransferase (ALT/SGPT) 47 U/L 42 U/L 39 U/L Alkaline Phosphatase 47 U/L 43 U/L 43 U/L Total Protein 6.6 g/dL 6.6 g/dL 6.7 g/dL Albumin 2.6 g/dL 2.5 g/dL 2.5 g/dL Globulin 4.0 4.1 4.2 Albumin/Globulin Ratio 0.650 0.609 0.595 Serum HCG, Qualitative NEGATIVE Blood Gas Sample Site RT RADIAL ARTERY Blood Gas pH 7.459 Blood Gas PCO2 31.9 mmHg Blood Gas PO2 86.7 mmHg Blood Gas HCO3 22.1 mmol/L Blood Gas Base Excess -0.8 mmol/L Lucas Test POSITIVE Arterial Blood Oxygen Saturation 96.2 % Deoxyhemoglobin 3.8 % Carboxyhemoglobin 0.1 % Methemoglobin 0.1 % Total Hemoglobin 14.8 % Total Oxygen Concentration 20.0 % Blood Gas Temperature 37.0 Oxygen Delivery Method (LAB) BIPAP Blood Gas Vent Mode ST FiO2 80 % Total Carbon Dioxide 23.1 mmol/L Test 05/02/21 06:37 05/02/21 08:25 05/03/21 05:20 05/03/21 07:55 White Blood Count 7.6 10^3/uL 12.0 10^3/uL Red Blood Count 4.62 10^6/uL 4.71 10^6/uL Hemoglobin 13.6 g/dL 13.6 g/dL Hematocrit 40.6 % 41.1 % Mean Corpuscular Volume 87.9 fL 87.3 fL Mean Corpuscular Hemoglobin 29.4 pg 28.9 pg Mean Corpuscular Hemoglobin Concent 33.5 g/dL 33.1 g/dL Red Cell Distribution Width 12.0 % 11.9 % Platelet Count 268 10^3/uL 338 10^3/uL Mean Platelet Volume 10.5 fL 10.2 fL Neutrophils (%) (Auto) 82.9 % 83.2 % Lymphocytes (%) (Auto) 11.7 % 10.3 % Monocytes (%) (Auto) 5.4 % 5.1 % Neutrophils # (Auto) 6.3 10^3/uL 10.0 10^3/uL Lymphocytes # (Auto) 0.89 10^3/uL1 1.24 10^3/uL1 Monocytes # (Auto) 0.4 10^3/uL 0.6 10^3/uL Absolute Immature Granulocyte (auto 0.12 10^3 u/L 0.14 10^3 u/L Absolute Eosinophils (auto) 0.0 10^3/uL 0.0 10^3/uL Immature Granulocytes % 1.60 % 1.20 % Eosinophils % 0.0 % 0.1 % Basophils % 0.0 % 0.1 % Basophils # 0.0 10^3/uL 0.0 10^3/uL Sodium Level 140 mmol/L 140 mmol/L Potassium Level 4.7 mmol/L 4.3 mmol/L Chloride Level 104.0 mmol/L 103.0 mmol/L Carbon Dioxide Level 27.6 mmol/L 28.1 mmol/L Anion Gap 13.1 13.2 Blood Urea Nitrogen 14 mg/dL 18 mg/dL Creatinine 0.62 mg/dL 0.65 mg/dL Estimated GFR () 131.8 124.8 Est GFR (CKD-EPI)(Non-Afr Lao) 108.9 103.1 BUN/Creatinine Ratio 22.0 27.0 Glucose Level 121 mg/dL 107 mg/dL Calcium Level 8.8 mg/dL 8.9 mg/dL Total Bilirubin 0.4 mg/dL 0.6 mg/dL Aspartate Amino Transf (AST/SGOT) 26 U/L 26 U/L Alanine Aminotransferase (ALT/SGPT) 37 U/L 31 U/L Alkaline Phosphatase 42 U/L 41 U/L Total Protein 6.7 g/dL 6.8 g/dL Albumin 2.5 g/dL 2.6 g/dL Globulin 4.2 4.2 Albumin/Globulin Ratio 0.595 0.619 Blood Gas Sample Site RT RADIAL ARTERY LEFT RADIAL ARTERY Blood Gas pH 7.405 7.416 Blood Gas PCO2 41.1 mmHg 37.1 mmHg Blood Gas PO2 82.5 mmHg 149.3 mmHg Blood Gas HCO3 25.2 mmol/L 23.3 mmol/L Blood Gas Base Excess 0.4 mmol/L -0.8 mmol/L Lucas Test POSITIVE POSITIVE Arterial Blood Oxygen Saturation 95.5 % 98.7 % Deoxyhemoglobin 4.5 % 1.3 % Carboxyhemoglobin 0.6 % 0.4 % Methemoglobin 0.3 % 0.5 % Total Hemoglobin 14.6 % 14.5 % Total Oxygen Concentration 19.5 % 20.2 % Blood Gas Temperature 37 37.00 Oxygen Delivery Method (LAB) BIPAP15/7 BP 15/7 FiO2 99 % 100 % Total Carbon Dioxide 26.4 mmol/L 24.4 mmol/L Blood Gas Vent Mode S/T Test 05/03/21 10:10 05/04/21 10:08 D-Dimer 1.21 mg/L Ferritin 697 ng/mL Lactate Dehydrogenase 329 U/L White Blood Count 17.0 10^3/uL Red Blood Count 4.46 10^6/uL Hemoglobin 12.9 g/dL Hematocrit 38.9 % Mean Corpuscular Volume 87.2 fL Mean Corpuscular Hemoglobin 28.9 pg Mean Corpuscular Hemoglobin Concent 33.2 g/dL Red Cell Distribution Width 11.8 % Platelet Count 334 10^3/uL Mean Platelet Volume 10.0 fL Neutrophils (%) (Auto) 90.6 % Lymphocytes (%) (Auto) 4.4 % Monocytes (%) (Auto) 3.9 % Neutrophils # (Auto) 15.4 10^3/uL Lymphocytes # (Auto) 0.75 10^3/uL1 Monocytes # (Auto) 0.7 10^3/uL Absolute Immature Granulocyte (auto 0.16 10^3 u/L Absolute Eosinophils (auto) 0.0 10^3/uL Immature Granulocytes % 0.90 % Eosinophils % 0.1 % Basophils % 0.1 % Basophils # 0.0 10^3/uL Sodium Level 135 mmol/L Potassium Level 3.9 mmol/L Chloride Level 102.0 mmol/L Carbon Dioxide Level 25.7 mmol/L Anion Gap 11.2 Blood Urea Nitrogen 20 mg/dL Creatinine 0.75 mg/dL Estimated GFR () 105.8 Est GFR (CKD-EPI)(Non-Afr Lao) 87.4 BUN/Creatinine Ratio 26.0 Glucose Level 135 mg/dL Calcium Level 8.8 mg/dL Total Bilirubin 0.8 mg/dL Aspartate Amino Transf (AST/SGOT) 33 U/L Alanine Aminotransferase (ALT/SGPT) 34 U/L Alkaline Phosphatase 43 U/L Total Protein 6.8 g/dL Albumin 2.5 g/dL Globulin 4.3 Albumin/Globulin Ratio 0.581 Current Medications Medications (Trade) Dose Ordered Sig/Davon Route PRN Reason Start Time Stop Time Status Last Admin Dose Admin Remdesivir 200 mg/ Sodium Chloride 140 ml @ 120.69 mls/ hr OT STAT IV 04/28/21 19:53 04/29/21 08:10 DC 04/28/21 19:53 Remdesivir 100 mg/ Sodium Chloride 120 ml @ 111.111 mls/hr Q24HRS IV 04/29/21 20:00 05/02/21 21:05 DC 05/02/21 20:45 Famotidine (Pepcid) 20 mg BID PO 04/28/21 21:00 05/28/21 20:59 05/04/21 08:47 Sucralfate (Carafate) 1 gm ACHS PO 04/28/21 21:00 05/28/21 20:59 05/04/21 12:15 Enoxaparin Sodium (Lovenox) 40 mg Q24HRS SQ 04/28/21 20:00 05/28/21 19:59 05/03/21 20:00 Sucralfate (Carafate) 1 gm STK-MED ONCE PO 04/28/21 20:56 04/28/21 20:56 DC Lorazepam (Ativan) 1 mg Q4HR PRN IV ANXIETY 04/29/21 00:00 05/29/21 00:00 05/04/21 08:47 Lorazepam (Ativan) 0.5 mg Q4HR PRN IV ANXIETY 04/29/21 00:00 05/29/21 00:00 Fentanyl Citrate (Sublimaze) 50 mcg STK-MED ONCE .ROUTE 04/29/21 11:37 04/29/21 11:38 DC Fentanyl Citrate (Sublimaze) 12.5 mcg OT ONCE IV 04/29/21 15:00 04/29/21 15:06 DC 04/29/21 13:35 Acetaminophen (Tylenol) 650 mg Q6HR PRN PO PAIN 1 - 3 04/30/21 18:00 05/02/21 18:00 DC 05/01/21 06:28 Dexmedetomidine HCl 200 mcg/ Sodium Chloride 50 ml @ 0 mls/hr IV 05/01/21 10:30 05/01/21 11:28 DC Sodium Chloride 250 ml @ ud STK-MED ONCE .ROUTE 05/01/21 20:40 05/01/21 20:40 DC Acetaminophen (Tylenol) 650 mg Q6HR PRN PO PAIN 1 - 3 05/02/21 20:30 05/08/21 18:00 05/04/21 08:47 Bisacodyl (Dulcolax Ec Tablet) 5 mg STAT STAT PO 05/03/21 13:45 05/03/21 19:05 DC 05/03/21 14:36 VTE VTE Risk Total Score: 5 VTE Risk Score VTE Risk: Score 0-1 = Low Risk (Aggressive mobilization; early ambulation; no VTE prophylaxis required) Score 2: Moderate Risk (Intermittent/Pneumatic Compression Device OR Lovenox/Heparin/Coumadin) Score 3-4: High Risk (Intermittent/Pneumatic Compression Device AND Lovenox/Heparin/Coumadin) Score > or =5: Highest Risk (Intermittent/Pneumatic Compression Device AND Lovenox/Heparin/Coumadin) VTE VTE Present on Admission: No Currently receiving anticoagul: Yes VTE Risk Total Score: 5 Assessment/Plan Assessment/Plan Assessment/Plan ASSESSMENT COVID Pneumonia Acute hypoxic respiratory failure Class 1 obesity PLAN Continuous BiPAP unless eating Dexamethasone daily Counseled on sleeping prone Remdesivir completed PRN melatonin for bedtime DVT: Lovenox Diet: regular Docusate BID for constipation GI: Famotidine Code: Full dispo: no changes to plan at this time. continue to monitor for improvement in respiratory status Problems: (1) Pneumonia due to COVID-19 virus Assessment & Plan: The pt. is a 35 yo f with obesity and now with COVID PNA on 95% FiO2 BIPAP and HFNC and 100% NRB during the day Plan: Pulm:BIPAP 15/7 95% FiO2 95%, HFNC 100% for meals, self proning at night Cards:BP and HR stable ID:Con't dexamthasone Heme:Check Hb and Keep >7 Endo:con't steroids Neuro:Benzo's and Precedex PRN Renal:Follow UO and Cr GI:Adv diet as tolerated PPx:LMWH and Pepcid GOC:Full code Patient seen through remote audiovisual assessment through HIPAA compliant setup. ICU multidisciplinary rounds conducted with bedside team through HIPAA compliant remote audiovisual connection. All labs, flowsheets, and images reviewed and discussed with ICU bedside team. Plan of care discussed with ICU bedside RN Leeann Cumulative nonprocedural critical care time spent in directed patient care = 60 min ICD Code: U07.1 - COVID-19; J12.82 - Pneumonia due to coronavirus disease 2018 SNOMED: [id number] Plan ASSESSMENT COVID Pneumonia Acute hypoxic respiratory failure Class 1 obesity PLAN Continuous BiPAP unless eating Dexamethasone daily Counseled on sleeping prone Remdesivir completed PRN melatonin for bedtime DVT: Lovenox Diet: regular Docusate BID for constipation GI: Famotidine Code: Full dispo: no changes to plan at this time. continue to monitor for improvement in respiratory status RICHARD MOONEY MD May 04, 2021 13:57
--- NOTE | 2021-05-04 15:02 | PRM.PN ---
Subjective Subjective Date: May 04, 2021 Time: 14:58 Subjective Patient seen and examined this morning. Patient able to eat for longer periods of time with facemask. Patient still sleeps prone. oxygen requirements improving. VTE VTE Risk Total Score: 5 VTE Risk Score VTE Risk: Score 0-1 = Low Risk (Aggressive mobilization; early ambulation; no VTE prophylaxis required) Score 2: Moderate Risk (Intermittent/Pneumatic Compression Device OR Lovenox/Heparin/Coumadin) Score 3-4: High Risk (Intermittent/Pneumatic Compression Device AND Lovenox/Heparin/Coumadin) Score > or =5: Highest Risk (Intermittent/Pneumatic Compression Device AND Lovenox/Heparin/Coumadin) Review of Systems Constitutional: No: Fever, Chills, Sweats Eyes: No: Pain, Vision change ENT: No: Nose congestion, Mouth pain Respiratory: SOB with excertion; No: Cough, Dry, Hemoptysis Cardiovascular: No: Chest Pain, Palpitations, Orthopnea Gastrointestinal: No: Nausea, Vomiting, Abdominal Pain Genitourinary: No Dysuria, No Frequency, No Incontinence Musculoskeletal: No: neck pain, shoulder pain, back pain Skin: No: Rash, Lesions Neurological: No: Weakness, Numbness Allergies: Coded Allergies: ibuprofen (Verified Allergy, Unknown, 04/29/21) naproxen (Verified Allergy, Unknown, 04/29/21) Objective Vitals and I/O Vital Sign - Last 24 Hours 05/04/21 05/04/21 05/04/21 05/04/21 08:01 08:01 08:15 08:30 Pulse 97 62 84 92 Resp 26 24 33 28 B/P (MAP) 101/63 (76) 138/67 (90) 118/64 (82) Pulse Ox 92 92 92 93 O2 Delivery Comfort Doug O2 Flow Rate 50.00 FiO2 100 05/04/21 05/04/21 05/04/21 05/04/21 08:35 08:46 09:00 09:15 Pulse 87 79 76 Resp 13 14 20 B/P (MAP) 116/60 (78) 137/65 (89) 89/55 (66) Pulse Ox 85 89 89 O2 Delivery Comfort Doug O2 Flow Rate 50.00 05/04/21 05/04/21 05/04/21 05/04/21 09:23 09:30 09:45 10:00 Pulse 70 68 69 60 Resp 30 15 30 28 B/P (MAP) 100/67 (78) 87/49 (62) 87/37 (54) 81/38 (52) Pulse Ox 89 89 05/04/21 05/04/21 05/04/21 05/04/21 10:15 10:30 10:45 11:21 Pulse 66 75 60 60 Resp 28 30 27 27 B/P (MAP) 97/48 (64) 98/54 (69) 89/47 (61) Pulse Ox 91 89 93 93 O2 Delivery Comfort Doug O2 Flow Rate 50.00 FiO2 100 General: Alert, Oriented X3, Cooperative HEENT: Atraumatic, PERRLA, EOMI Neck: Supple Lungs: Clear to auscultation, Normal air movement Heart: No murmurs, Other (mild bradycardia, asymptomatic ) Abdomen: Normal bowel sounds, Soft Extremities: No clubbing, No cyanosis Skin: No rashes, No breakdown Neuro: Normal speech, Normal tone Psych/Mental Status: Mental status NL, Mood NL All Results(Lab/Rad) Laboratory Tests Test 05/02/21 06:37 05/02/21 08:25 White Blood Count 7.6 10^3/uL Red Blood Count 4.62 10^6/uL Hemoglobin 13.6 g/dL Hematocrit 40.6 % Mean Corpuscular Volume 87.9 fL Mean Corpuscular Hemoglobin 29.4 pg Mean Corpuscular Hemoglobin Concent 33.5 g/dL Red Cell Distribution Width 12.0 % Platelet Count 268 10^3/uL Mean Platelet Volume 10.5 fL Neutrophils (%) (Auto) 82.9 % Lymphocytes (%) (Auto) 11.7 % Monocytes (%) (Auto) 5.4 % Neutrophils # (Auto) 6.3 10^3/uL Lymphocytes # (Auto) 0.89 10^3/uL1 Monocytes # (Auto) 0.4 10^3/uL Absolute Immature Granulocyte (auto 0.12 10^3 u/L Absolute Eosinophils (auto) 0.0 10^3/uL Immature Granulocytes % 1.60 % Eosinophils % 0.0 % Basophils % 0.0 % Basophils # 0.0 10^3/uL Sodium Level 140 mmol/L Potassium Level 4.7 mmol/L Chloride Level 104.0 mmol/L Carbon Dioxide Level 27.6 mmol/L Anion Gap 13.1 Blood Urea Nitrogen 14 mg/dL Creatinine 0.62 mg/dL Estimated GFR () 131.8 Est GFR (CKD-EPI)(Non-Afr Burundian) 108.9 BUN/Creatinine Ratio 22.0 Glucose Level 121 mg/dL Calcium Level 8.8 mg/dL Total Bilirubin 0.4 mg/dL Aspartate Amino Transf (AST/SGOT) 26 U/L Alanine Aminotransferase (ALT/SGPT) 37 U/L Alkaline Phosphatase 42 U/L Total Protein 6.7 g/dL Albumin 2.5 g/dL Globulin 4.2 Albumin/Globulin Ratio 0.595 Blood Gas Sample Site RT RADIAL ARTERY Blood Gas pH 7.405 Blood Gas PCO2 41.1 mmHg Blood Gas PO2 82.5 mmHg Blood Gas HCO3 25.2 mmol/L Blood Gas Base Excess 0.4 mmol/L Lucas Test POSITIVE Arterial Blood Oxygen Saturation 95.5 % Deoxyhemoglobin 4.5 % Carboxyhemoglobin 0.6 % Methemoglobin 0.3 % Total Hemoglobin 14.6 % Total Oxygen Concentration 19.5 % Blood Gas Temperature 37 Oxygen Delivery Method (LAB) BIPAP15/7 FiO2 99 % Total Carbon Dioxide 26.4 mmol/L Current Medications Medications (Trade) Dose Ordered Sig/Davon Route PRN Reason Start Time Stop Time Status Last Admin Dose Admin Remdesivir 200 mg/ Sodium Chloride 140 ml @ 120.69 mls/ hr OT STAT IV 04/28/21 19:53 04/29/21 08:10 DC 04/28/21 19:53 Remdesivir 100 mg/ Sodium Chloride 120 ml @ 111.111 mls/hr Q24HRS IV 04/29/21 20:00 05/02/21 21:05 05/01/21 20:50 Famotidine (Pepcid) 20 mg BID PO 04/28/21 21:00 05/28/21 20:59 05/02/21 09:29 Sucralfate (Carafate) 1 gm ACHS PO 04/28/21 21:00 05/28/21 20:59 05/02/21 07:30 Enoxaparin Sodium (Lovenox) 40 mg Q24HRS SQ 04/28/21 20:00 05/28/21 19:59 05/01/21 20:50 Sucralfate (Carafate) 1 gm STK-MED ONCE PO 04/28/21 20:56 04/28/21 20:56 DC Lorazepam (Ativan) 1 mg Q4HR PRN IV ANXIETY 04/29/21 00:00 05/29/21 00:00 04/30/21 22:30 Lorazepam (Ativan) 0.5 mg Q4HR PRN IV ANXIETY 04/29/21 00:00 05/29/21 00:00 Fentanyl Citrate (Sublimaze) 50 mcg STK-MED ONCE .ROUTE 04/29/21 11:37 04/29/21 11:38 DC Fentanyl Citrate (Sublimaze) 12.5 mcg OT ONCE IV 04/29/21 15:00 04/29/21 15:06 DC 04/29/21 13:35 Acetaminophen (Tylenol) 650 mg Q6HR PRN PO PAIN 1 - 3 04/30/21 18:00 05/02/21 18:00 05/01/21 06:28 Dexmedetomidine HCl 200 mcg/ Sodium Chloride 50 ml @ 0 mls/hr IV 05/01/21 10:30 05/01/21 11:28 DC Sodium Chloride 250 ml @ ud STK-MED ONCE .ROUTE 05/01/21 20:40 05/01/21 20:40 DC Course Sepsis Screening Results: Posi: POSITIVE Sepsis Qualifier/Stage: SEPSIS RISK Vitals & review Data Vital Sign - Last 24 Hours 05/02/21 05/02/21 05/02/21 05/02/21 08:00 08:07 08:15 08:22 Pulse 64 45 47 83 Resp 24 21 19 33 B/P (MAP) 104/59 (74) Pulse Ox 93 95 95 86 O2 Delivery S/T FiO2 100 05/02/21 05/02/21 05/02/21 05/02/21 08:31 08:37 08:45 08:52 Pulse 69 68 65 75 Resp 24 31 30 35 B/P (MAP) 137/87 (104) Pulse Ox 95 95 93 91 05/02/21 05/02/21 05/02/21 05/02/21 08:54 09:00 09:00 09:07 Pulse 62 64 64 Resp 10 24 38 B/P (MAP) 119/74 (89) Pulse Ox 89 93 89 O2 Delivery Bi-pap Bi-pap O2 Flow Rate 100.00 FiO2 99 05/02/21 05/02/21 05/02/216/21 09:10 09:16 09:22 09:30 Pulse 106 62 63 83 Resp 26 29 32 29 B/P (MAP) 160/72 (101) 135/77 (96) Pulse Ox 89 89 90 81 O2 Delivery Comfort Doug O2 Flow Rate 50.00 FiO2 100 05/02/21 05/02/21 05/02/21 05/02/21 09:37 09:46 09:52 10:00 Pulse 73 74 70 55 Resp 16 34 27 16 B/P (MAP) 174/107 (129) Pulse Ox 85 82 83 95 O2 Delivery S/T FiO2 100 05/02/21 05/02/21 05/02/21 05/02/21 10:00 10:07 10:15 10:22 Pulse 60 66 68 65 Resp 23 36 23 B/P (MAP) 115/77 (90) 114/79 (91) Pulse Ox 92 93 92 92 Laboratory Tests Test 05/01/21 04:32 05/01/21 11:20 05/02/21 06:37 05/02/21 08:25 White Blood Count 10.2 10^3/uL 7.6 10^3/uL Red Blood Count 4.50 10^6/uL 4.62 10^6/uL Hemoglobin 13.3 g/dL 13.6 g/dL Hematocrit 39.6 % 40.6 % Mean Corpuscular Volume 88.0 fL 87.9 fL Mean Corpuscular Hemoglobin 29.6 pg 29.4 pg Mean Corpuscular Hemoglobin Concent 33.6 g/dL 33.5 g/dL Red Cell Distribution Width 12.1 % 12.0 % Platelet Count 234 10^3/uL 268 10^3/uL Mean Platelet Volume 10.4 fL 10.5 fL Sodium Level 139 mmol/L 140 mmol/L Potassium Level 3.9 mmol/L 4.7 mmol/L Chloride Level 105.0 mmol/L 104.0 mmol/L Carbon Dioxide Level 26.8 mmol/L 27.6 mmol/L Anion Gap 11.1 13.1 Blood Urea Nitrogen 12 mg/dL 14 mg/dL Creatinine 0.56 mg/dL 0.62 mg/dL Estimated GFR () 148.2 131.8 Est GFR (CKD-EPI)(Non-Afr Burundian) 122.5 108.9 BUN/Creatinine Ratio 21.0 22.0 Glucose Level 87 mg/dL 121 mg/dL Calcium Level 8.8 mg/dL 8.8 mg/dL Total Bilirubin 0.5 mg/dL 0.4 mg/dL Aspartate Amino Transf (AST/SGOT) 36 U/L 26 U/L Alanine Aminotransferase (ALT/SGPT) 39 U/L 37 U/L Alkaline Phosphatase 43 U/L 42 U/L Total Protein 6.7 g/dL 6.7 g/dL Albumin 2.5 g/dL 2.5 g/dL Globulin 4.2 4.2 Albumin/Globulin Ratio 0.595 0.595 Blood Gas Sample Site RT RADIAL ARTERY RT RADIAL ARTERY Blood Gas pH 7.459 7.405 Blood Gas PCO2 31.9 mmHg 41.1 mmHg Blood Gas PO2 86.7 mmHg 82.5 mmHg Blood Gas HCO3 22.1 mmol/L 25.2 mmol/L Blood Gas Base Excess -0.8 mmol/L 0.4 mmol/L Lucas Test POSITIVE POSITIVE Arterial Blood Oxygen Saturation 96.2 % 95.5 % Deoxyhemoglobin 3.8 % 4.5 % Carboxyhemoglobin 0.1 % 0.6 % Methemoglobin 0.1 % 0.3 % Total Hemoglobin 14.8 % 14.6 % Total Oxygen Concentration 20.0 % 19.5 % Blood Gas Temperature 37.0 37 Oxygen Delivery Method (LAB) BIPAP BIPAP15/[address] Mode ST FiO2 80 % 99 % Total Carbon Dioxide 23.1 mmol/L 26.4 mmol/L Neutrophils (%) (Auto) 82.9 % Lymphocytes (%) (Auto) 11.7 % Monocytes (%) (Auto) 5.4 % Neutrophils # (Auto) 6.3 10^3/uL Lymphocytes # (Auto) 0.89 10^3/uL1 Monocytes # (Auto) 0.4 10^3/uL Absolute Immature Granulocyte (auto 0.12 10^3 u/L Absolute Eosinophils (auto) 0.0 10^3/uL Immature Granulocytes % 1.60 % Eosinophils % 0.0 % Basophils % 0.0 % Basophils # 0.0 10^3/uL Current Medications Medications (Trade) Dose Ordered Sig/Davon PRN Reason Start Time Stop Time Status Last Admin Acetaminophen (Tylenol) 650 mg Q6HR PRN PAIN 1 - 3 04/30/21 18:00 05/02/21 18:00 05/01/21 06:28 Remdesivir 100 mg/ Sodium Chloride 120 ml @ 111.111 mls/hr Q24HRS 04/29/21 20:00 05/02/21 21:05 05/01/21 20:50 LEVEL 1 SEPSIS INFECTION CRITE: ABX Therapy, Cough/Shortness of Breath, Flu- Pneumonia LEVEL 2-SIRS (LIST ALL THAT AP: RR>20/min Cardiovascular Evidence: Not Assessed or None Hematologic Evidence: None/Not assessed Hepatic Evidence: None/Not assessed Metabolic Evidence: None/Not assessed Neurological Evidence: None/Not assessed Respiratory Evidence: Acute Resp failure Renal Evidence: None/Not assessed O2 Sat by Pulse Oximetry: 93 Oxygen Flow Rate: 50.00 Assessment/Plan Assessment/Plan Assessment/Plan ASSESSMENT COVID Pneumonia Acute hypoxic respiratory failure Class 1 obesity PLAN BiPAP as needed. Facemask when BiPAP off Dexamethasone daily Counseled on sleeping prone Remdesivir completed PRN melatonin for bedtime DVT: Lovenox Diet: regular Docusate BID for constipation GI: Famotidine Code: Full dispo: continue to monitor for clinical improvement CATHERINE DAMON MD May 04, 2021 15:02
[2021-05-04] MEDS: LOVENOX SQ SCH (20:00)
[2021-05-05] VITALS (73 sets, daily range): BP systolic 92–164; BP diastolic 40–87
[2021-05-05] MEDS ORDERED: ATIVAN ONE ×3 (02:31→20:56)
--- NOTE | 2021-05-05 02:32 | NUR ---
Saline for humidification exchanged for new bag. [email or web address] Addendum: 05/05/21 at 0233 by ALLIE SMITH RT Amended: Links added.
[2021-05-05] MEDS: ATIVAN IV PRN ×3 (03:15→20:58)
[2021-05-05 05:26] LABS: BASOPHIL % 0.1 % (0.0-0.2); EOSINOPHIL # 0.1 10^3/uL (0.0-0.2); EOSINOPHIL % 0.6 % (0.0-5.0); LYMPHOCYTES # 1.05 10^3/uL1 (1.0-4.8); LYMPHOCYTES % 7.5 % (24.0-44.0); MEAN CORP HGB 29.1 pg (26-34); MONOCYTES # 0.5 10^3/uL (0.3-0.8); MONOCYTES % 3.3 % (5.0-12.0); NEUTROPHIL # 12.3 10^3/uL (1.8-7.7); NEUTROPHILS % 88.5 % (41.0-85.0); PLATELET COUNT 309 10^3/uL (150-400); RED CELL DISTRIBUTION WIDTH 11.9 % (11.5-14.5)
[2021-05-05 05:40] LABS: CARBON DIOXIDE 26.8 mmol/L (20.0-32)
[2021-05-05 05:41] LABS: CALCIUM 8.8 mg/dL (8.4-10.5)
[2021-05-05] MEDS: CARAFATE PO SCH ×4 (07:30→21:00)
[2021-05-05] MEDS: PEPCID PO SCH ×2 (08:07→21:00)
[2021-05-05] MEDS: COLACE PO SCH ×2 (08:07→21:00)
[2021-05-05] MEDS: DEXAMETHASONE 10 MG/ML VIAL IV SCH (08:07)
[2021-05-05] MEDS ORDERED: LASIX IV ONE (11:00)
--- NOTE | 2021-05-05 14:01 | TELE.CONS ---
Review of Systems Allergies: Coded Allergies: ibuprofen (Verified Allergy, Unknown, 04/29/21) naproxen (Verified Allergy, Unknown, 04/29/21) VITALS REVIEW VITALS Vital Sign - Last 24 Hours 05/05/21 05/05/21 05/05/21 05/05/21 07:00 07:15 07:30 07:45 Pulse 119 100 98 119 Resp 53 49 44 50 B/P (MAP) 112/64 (80) 112/64 (80) 110/60 (77) 102/57 (72) Pulse Ox 80 91 91 82 05/05/21 05/05/21 05/05/21 05/05/21 08:00 08:01 08:15 08:31 Pulse 118 111 104 Resp 41 48 37 B/P (MAP) 128/65 (86) 115/70 (85) 119/64 (82) Pulse Ox 85 90 91 O2 Delivery Comfort Doug O2 Flow Rate 50.00 05/05/21 05/05/21 05/05/21 05/05/21 08:45 09:00 09:03 09:04 Pulse 117 123 53 Resp 47 52 31 31 B/P (MAP) 147/63 (91) 164/79 (107) Pulse Ox 89 77 94 91 O2 Delivery Comfort Doug O2 Flow Rate 50.00 FiO2 100 05/05/21 05/05/21 05/05/21 05/05/21 09:15 09:30 09:45 10:00 Pulse 106 104 100 104 Resp 38 39 48 21 B/P (MAP) 102/57 (72) 108/64 (79) 102/57 (72) 105/70 (82) Pulse Ox 92 95 93 97 05/05/21 05/05/21 05/05/21 05/05/21 10:15 10:31 10:46 11:00 Pulse 100 106 104 98 Resp 18 41 24 23 B/P (MAP) 110/64 (79) 112/44 (66) 136/61 (86) 110/50 (70) Pulse Ox 95 87 92 93 05/05/21 05/05/21 05/05/21 05/05/21 11:15 11:20 11:30 11:47 Pulse 83 98 110 Resp 40 44 38 B/P (MAP) 92/54 (67) 103/73 103/73 (83) 129/83 (98) Pulse Ox 98 96 72 8/9/21 8/9/21 8/9/21 8/9/21 12:00 12:00 12:15 12:30 Temp 98.8 Pulse 104 103 99 Resp 10 B/P (MAP) 103/73 (83) 108/67 (81) 144/57 (86) Pulse Ox 74 86 98 O2 Delivery Comfort Doug O2 Flow Rate 50.00 05/05/21 05/05/21 05/05/21 12:45 13:00 13:15 Pulse 101 94 78 Resp 34 33 39 B/P (MAP) 102/63 (76) 113/62 (79) 115/62 (79) Pulse Ox 96 100 97 Intake and Output 05/05/21 07:00 Intake Total 850 ml Output Total 500 ml Balance 350 ml VTE VTE Risk Total Score: 5 VTE Risk Score VTE Risk: Score 0-1 = Low Risk (Aggressive mobilization; early ambulation; no VTE prophylaxis required) Score 2: Moderate Risk (Intermittent/Pneumatic Compression Device OR Lovenox/Heparin/Coumadin) Score 3-4: High Risk (Intermittent/Pneumatic Compression Device AND Lovenox/Heparin/Coumadin) Score > or =5: Highest Risk (Intermittent/Pneumatic Compression Device AND Lovenox/Heparin/Coumadin) VTE VTE Present on Admission: No Currently receiving anticoagul: Yes VTE Risk Total Score: 5 Assessment/Plan Assessment/Plan Assessment/Plan This is a 35-year-old woman admitted with Covid/ARDS. Overnight the patient did reasonably well off BiPAP. This morning, on camera, she is sitting up in a chair on high flow nasal cannula at 60 L/min, 100%, with a nonrebreather mask on top. With this, oxygen saturations are 90%, with blood pressure 112/44 and heart rate in the 110s. The patient appears comfortable and is able to answer questions. However, per the bedside staff, when she takes off the nonrebreather to try to eat, her oxygen saturation drops to the 80s. She has not been able to eat much. EMR data was reviewed. Intake 850 mL, output 500 mL, all urine. Blood work was reviewed and was relatively unremarkable. Diagnosis: Covid pneumonia, ARDS Plan: Hypoxic respiratory failure secondary to Covid pneumonia. The patient is tolerating periods off of BiPAP with high flow nasal cannula plus nonrebreather. Would continue to use BiPAP at night and to encourage self proning. -On precedex gtt to help the patient tolerate oxygen delivery therapies. Covid specific therapies include steroids. Remdesivir was administered from 04/28-05/02. Intake has been low, will probably need to have a discussion with nutrition and consider tube feeding if the patient is unable to tolerate being off BiPAP/NRB enough to be able to eat. Current blood work does not suggest any other organ injury, though the patient continues to remain at high risk and should be monitored at least daily. On enoxaparin for DVT prophylaxis and Pepcid for SBP Full code Plan reviewed with bedside team. Patient seen through remote audiovisual assessment through HIPAA compliant setup. All labs, flowsheets, and images reviewed Cumulative nonprocedural critical care time spent in directed patient care = 60min CARLOS GOODMAN MD May 05, 2021 14:01
--- NOTE | 2021-05-05 18:51 | PRM.PN ---
Subjective Subjective Date: May 05, 2021 Time: 18:50 Subjective Patient seen and examined this morning. Patient able to eat for longer periods of time with facemask. Patient still sleeps prone. oxygen requirements improving. VTE VTE Risk Total Score: 5 VTE Risk Score VTE Risk: Score 0-1 = Low Risk (Aggressive mobilization; early ambulation; no VTE prophylaxis required) Score 2: Moderate Risk (Intermittent/Pneumatic Compression Device OR Lovenox/Heparin/Coumadin) Score 3-4: High Risk (Intermittent/Pneumatic Compression Device AND Lovenox/Heparin/Coumadin) Score > or =5: Highest Risk (Intermittent/Pneumatic Compression Device AND Lovenox/Heparin/Coumadin) Review of Systems Allergies: Coded Allergies: ibuprofen (Verified Allergy, Unknown, 04/29/21) naproxen (Verified Allergy, Unknown, 04/29/21) Objective Vitals and I/O Vital Sign - Last 24 Hours 05/05/21 05/05/21 05/05/21 05/05/21 07:00 07:15 07:30 07:45 Pulse 119 100 98 119 Resp 53 49 44 50 B/P (MAP) 112/64 (80) 112/64 (80) 110/60 (77) 102/57 (72) Pulse Ox 80 91 91 82 05/05/21 05/05/21 05/05/21 05/05/21 08:00 08:01 08:15 08:31 Pulse 118 111 104 Resp 41 48 37 B/P (MAP) 128/65 (86) 115/70 (85) 119/64 (82) Pulse Ox 85 90 91 O2 Delivery Comfort Doug O2 Flow Rate 50.00 05/05/21 05/05/21 05/05/21 05/05/21 08:45 09:00 09:03 09:04 Pulse 117 123 53 Resp 47 52 31 31 B/P (MAP) 147/63 (91) 164/79 (107) Pulse Ox 89 77 94 91 O2 Delivery Comfort Doug O2 Flow Rate 50.00 FiO2 100 05/05/21 05/05/21 05/05/21 05/05/21 09:15 09:30 09:45 10:00 Pulse 106 104 100 104 Resp 38 39 48 21 B/P (MAP) 102/57 (72) 108/64 (79) 102/57 (72) 105/70 (82) Pulse Ox 92 95 93 97 05/05/21 05/05/21 05/05/21 05/05/21 10:15 10:31 10:46 11:00 Pulse 100 106 104 98 Resp 18 41 24 23 B/P (MAP) 110/64 (79) 112/44 (66) 136/61 (86) 110/50 (70) Pulse Ox 95 87 92 93 05/05/21 05/05/21 05/05/21 05/05/21 11:15 11:20 11:30 11:47 Pulse 83 98 110 Resp 40 44 38 B/P (MAP) 92/54 (67) 103/73 103/73 (83) 129/83 (98) Pulse Ox 98 96 72 05/05/21 05/05/21 05/05/21 05/05/21 12:00 12:00 12:15 12:30 Temp 98.8 Pulse 104 103 99 Resp 10 B/P (MAP) 103/73 (83) 108/67 (81) 144/57 (86) Pulse Ox 74 86 98 O2 Delivery Comfort Doug O2 Flow Rate 50.00 05/05/21 05/05/21 05/05/21 05/05/21 12:45 13:00 13:15 13:30 Pulse 101 94 78 97 Resp 34 33 39 41 B/P (MAP) 102/63 (76) 113/62 (79) 115/62 (79) 119/70 (86) Pulse Ox 96 100 97 97 05/05/21 05/05/21 05/05/21 05/05/21 13:45 14:00 14:15 14:30 Pulse 85 128 86 70 Resp 39 17 35 B/P (MAP) 99/58 (72) 111/58 (75) 108/55 (72) 104/60 (75) Pulse Ox 98 95 84 100 05/05/21 05/05/21 05/05/21 05/05/21 14:45 15:00 15:30 15:45 Pulse 94 105 80 72 Resp 26 39 35 B/P (MAP) 116/87 (97) 118/60 (79) 107/57 (74) 104/63 (77) Pulse Ox 91 93 98 100 05/05/21 05/05/21 05/05/21 05/05/21 16:00 16:00 16:15 16:23 Temp 98.9 Pulse 74 79 78 Resp 25 19 39 B/P (MAP) 110/58 (75) 110/63 (79) Pulse Ox 100 95 93 O2 Delivery Comfort Doug Comfort Doug O2 Flow Rate 50.00 50.00 FiO2 100 05/05/21 05/05/21 05/05/21 05/05/21 16:30 16:45 17:00 17:15 Pulse 64 60 59 61 Resp 14 28 28 B/P (MAP) 107/60 (76) 119/64 (82) 117/74 (88) 112/67 (82) Pulse Ox 98 97 97 05/05/21 05/05/21 05/05/21 05/05/21 17:30 17:45 17:47 18:00 Pulse 59 69 93 75 Resp 28 30 47 44 B/P (MAP) 114/68 (83) Pulse Ox 97 94 90 88 05/05/21 05/05/21 05/05/21 18:02 18:15 18:31 Pulse 85 79 74 Resp 38 22 21 B/P (MAP) 136/75 (95) 110/40 (63) 120/76 (91) Pulse Ox 86 91 94 Intake and Output 05/05/21 07:00 Intake Total 850 ml Output Total 500 ml Balance 350 ml General: Alert, Oriented X3, Cooperative HEENT: Atraumatic, PERRLA, EOMI Neck: Supple Lungs: Clear to auscultation, Normal air movement Heart: No murmurs, Other (mild bradycardia, asymptomatic ) Abdomen: Normal bowel sounds, Soft Extremities: No clubbing, No cyanosis Skin: No rashes, No breakdown Neuro: Normal speech, Normal tone Psych/Mental Status: Mental status NL, Mood NL All Results(Lab/Rad) Laboratory Tests Test 05/02/21 06:37 05/02/21 08:25 White Blood Count 7.6 10^3/uL Red Blood Count 4.62 10^6/uL Hemoglobin 13.6 g/dL Hematocrit 40.6 % Mean Corpuscular Volume 87.9 fL Mean Corpuscular Hemoglobin 29.4 pg Mean Corpuscular Hemoglobin Concent 33.5 g/dL Red Cell Distribution Width 12.0 % Platelet Count 268 10^3/uL Mean Platelet Volume 10.5 fL Neutrophils (%) (Auto) 82.9 % Lymphocytes (%) (Auto) 11.7 % Monocytes (%) (Auto) 5.4 % Neutrophils # (Auto) 6.3 10^3/uL Lymphocytes # (Auto) 0.89 10^3/uL1 Monocytes # (Auto) 0.4 10^3/uL Absolute Immature Granulocyte (auto 0.12 10^3 u/L Absolute Eosinophils (auto) 0.0 10^3/uL Immature Granulocytes % 1.60 % Eosinophils % 0.0 % Basophils % 0.0 % Basophils # 0.0 10^3/uL Sodium Level 140 mmol/L Potassium Level 4.7 mmol/L Chloride Level 104.0 mmol/L Carbon Dioxide Level 27.6 mmol/L Anion Gap 13.1 Blood Urea Nitrogen 14 mg/dL Creatinine 0.62 mg/dL Estimated GFR () 131.8 Est GFR (CKD-EPI)(Non-Afr Azerbaijani) 108.9 BUN/Creatinine Ratio 22.0 Glucose Level 121 mg/dL Calcium Level 8.8 mg/dL Total Bilirubin 0.4 mg/dL Aspartate Amino Transf (AST/SGOT) 26 U/L Alanine Aminotransferase (ALT/SGPT) 37 U/L Alkaline Phosphatase 42 U/L Total Protein 6.7 g/dL Albumin 2.5 g/dL Globulin 4.2 Albumin/Globulin Ratio 0.595 Blood Gas Sample Site RT RADIAL ARTERY Blood Gas pH 7.405 Blood Gas PCO2 41.1 mmHg Blood Gas PO2 82.5 mmHg Blood Gas HCO3 25.2 mmol/L Blood Gas Base Excess 0.4 mmol/L Lucas Test POSITIVE Arterial Blood Oxygen Saturation 95.5 % Deoxyhemoglobin 4.5 % Carboxyhemoglobin 0.6 % Methemoglobin 0.3 % Total Hemoglobin 14.6 % Total Oxygen Concentration 19.5 % Blood Gas Temperature 37 Oxygen Delivery Method (LAB) BIPAP15/7 FiO2 99 % Total Carbon Dioxide 26.4 mmol/L Current Medications Medications (Trade) Dose Ordered Sig/Davon Route PRN Reason Start Time Stop Time Status Last Admin Dose Admin Remdesivir 200 mg/ Sodium Chloride 140 ml @ 120.69 mls/ hr OT STAT IV 04/28/21 19:53 04/29/21 08:10 DC 04/28/21 19:53 Remdesivir 100 mg/ Sodium Chloride 120 ml @ 111.111 mls/hr Q24HRS IV 04/29/21 20:00 05/02/21 21:05 05/01/21 20:50 Famotidine (Pepcid) 20 mg BID PO 04/28/21 21:00 05/28/21 20:59 05/02/21 09:29 Sucralfate (Carafate) 1 gm ACHS PO 04/28/21 21:00 05/28/21 20:59 05/02/21 07:30 Enoxaparin Sodium (Lovenox) 40 mg Q24HRS SQ 04/28/21 20:00 05/28/21 19:59 05/01/21 20:50 Sucralfate (Carafate) 1 gm STK-MED ONCE PO 04/28/21 20:56 04/28/21 20:56 DC Lorazepam (Ativan) 1 mg Q4HR PRN IV ANXIETY 04/29/21 00:00 05/29/21 00:00 04/30/21 22:30 Lorazepam (Ativan) 0.5 mg Q4HR PRN IV ANXIETY 04/29/21 00:00 05/29/21 00:00 Fentanyl Citrate (Sublimaze) 50 mcg STK-MED ONCE .ROUTE 04/29/21 11:37 04/29/21 11:38 DC Fentanyl Citrate (Sublimaze) 12.5 mcg OT ONCE IV 04/29/21 15:00 04/29/21 15:06 DC 04/29/21 13:35 Acetaminophen (Tylenol) 650 mg Q6HR PRN PO PAIN 1 - 3 04/30/21 18:00 05/02/21 18:00 05/01/21 06:28 Dexmedetomidine HCl 200 mcg/ Sodium Chloride 50 ml @ 0 mls/hr IV 05/01/21 10:30 05/01/21 11:28 DC Sodium Chloride 250 ml @ ud STK-MED ONCE .ROUTE 05/01/21 20:40 05/01/21 20:40 DC Course Sepsis Screening Results: Posi: POSITIVE Sepsis Qualifier/Stage: SEPSIS RISK Vitals & review Data Vital Sign - Last 24 Hours 05/02/21 05/02/21 05/02/21 05/02/21 08:00 08:07 08:15 08:22 Pulse 64 45 47 83 Resp 24 21 19 33 B/P (MAP) 104/59 (74) Pulse Ox 93 95 95 86 O2 Delivery S/T FiO2 100 05/02/21 05/02/21 05/02/21 05/02/21 08:31 08:37 08:45 08:52 Pulse 69 68 65 75 Resp 24 31 30 35 B/P (MAP) 137/87 (104) Pulse Ox 95 95 93 91 05/02/21 05/02/21 05/02/21 05/02/21 08:54 09:00 09:00 09:07 Pulse 62 64 64 Resp 10 24 38 B/P (MAP) 119/74 (89) Pulse Ox 89 93 89 O2 Delivery Bi-pap Bi-pap O2 Flow Rate 100.00 FiO2 99 05/02/21 05/02/21 05/02/21 05/02/21 09:10 09:16 09:22 09:30 Pulse 106 62 63 83 Resp 26 29 32 29 B/P (MAP) 160/72 (101) 135/77 (96) Pulse Ox 89 89 90 81 O2 Delivery Comfort Doug O2 Flow Rate 50.00 FiO2 100 05/02/21 05/02/21 05/02/21 05/02/21 09:37 09:46 09:52 10:00 Pulse 73 74 70 55 Resp 16 34 27 16 B/P (MAP) 174/107 (129) Pulse Ox 85 82 83 95 O2 Delivery S/T FiO2 100 05/02/21 05/02/21 05/02/21 05/02/21 10:00 10:07 10:15 10:22 Pulse 60 66 68 65 Resp 23 36 23 B/P (MAP) 115/77 (90) 114/79 (91) Pulse Ox 92 93 92 92 Laboratory Tests Test 05/01/21 04:32 05/01/21 11:20 05/02/21 06:37 05/02/21 08:25 White Blood Count 10.2 10^3/uL 7.6 10^3/uL Red Blood Count 4.50 10^6/uL 4.62 10^6/uL Hemoglobin 13.3 g/dL 13.6 g/dL Hematocrit 39.6 % 40.6 % Mean Corpuscular Volume 88.0 fL 87.9 fL Mean Corpuscular Hemoglobin 29.6 pg 29.4 pg Mean Corpuscular Hemoglobin Concent 33.6 g/dL 33.5 g/dL Red Cell Distribution Width 12.1 % 12.0 % Platelet Count 234 10^3/uL 268 10^3/uL Mean Platelet Volume 10.4 fL 10.5 fL Sodium Level 139 mmol/L 140 mmol/L Potassium Level 3.9 mmol/L 4.7 mmol/L Chloride Level 105.0 mmol/L 104.0 mmol/L Carbon Dioxide Level 26.8 mmol/L 27.6 mmol/L Anion Gap 11.1 13.1 Blood Urea Nitrogen 12 mg/dL 14 mg/dL Creatinine 0.56 mg/dL 0.62 mg/dL Estimated GFR () 148.2 131.8 Est GFR (CKD-EPI)(Non-Afr Azerbaijani) 122.5 108.9 BUN/Creatinine Ratio 21.0 22.0 Glucose Level 87 mg/dL 121 mg/dL Calcium Level 8.8 mg/dL 8.8 mg/dL Total Bilirubin 0.5 mg/dL 0.4 mg/dL Aspartate Amino Transf (AST/SGOT) 36 U/L 26 U/L Alanine Aminotransferase (ALT/SGPT) 39 U/L 37 U/L Alkaline Phosphatase 43 U/L 42 U/L Total Protein 6.7 g/dL 6.7 g/dL Albumin 2.5 g/dL 2.5 g/dL Globulin 4.2 4.2 Albumin/Globulin Ratio 0.595 0.595 Blood Gas Sample Site RT RADIAL ARTERY RT RADIAL ARTERY Blood Gas pH 7.459 7.405 Blood Gas PCO2 31.9 mmHg 41.1 mmHg Blood Gas PO2 86.7 mmHg 82.5 mmHg Blood Gas HCO3 22.1 mmol/L 25.2 mmol/L Blood Gas Base Excess -0.8 mmol/L 0.4 mmol/L Lucas Test POSITIVE POSITIVE Arterial Blood Oxygen Saturation 96.2 % 95.5 % Deoxyhemoglobin 3.8 % 4.5 % Carboxyhemoglobin 0.1 % 0.6 % Methemoglobin 0.1 % 0.3 % Total Hemoglobin 14.8 % 14.6 % Total Oxygen Concentration 20.0 % 19.5 % Blood Gas Temperature 37.0 37 Oxygen Delivery Method (LAB) BIPAP BIPAP15/[address] Mode ST FiO2 80 % 99 % Total Carbon Dioxide 23.1 mmol/L 26.4 mmol/L Neutrophils (%) (Auto) 82.9 % Lymphocytes (%) (Auto) 11.7 % Monocytes (%) (Auto) 5.4 % Neutrophils # (Auto) 6.3 10^3/uL Lymphocytes # (Auto) 0.89 10^3/uL1 Monocytes # (Auto) 0.4 10^3/uL Absolute Immature Granulocyte (auto 0.12 10^3 u/L Absolute Eosinophils (auto) 0.0 10^3/uL Immature Granulocytes % 1.60 % Eosinophils % 0.0 % Basophils % 0.0 % Basophils # 0.0 10^3/uL Current Medications Medications (Trade) Dose Ordered Sig/Davon PRN Reason Start Time Stop Time Status Last Admin Acetaminophen (Tylenol) 650 mg Q6HR PRN PAIN 1 - 3 04/30/21 18:00 05/02/21 18:00 05/01/21 06:28 Remdesivir 100 mg/ Sodium Chloride 120 ml @ 111.111 mls/hr Q24HRS 04/29/21 20:00 05/02/21 21:05 05/01/21 20:50 LEVEL 1 SEPSIS INFECTION CRITE: ABX Therapy, Cough/Shortness of Breath, Flu-Pneumonia LEVEL 2-SIRS (LIST ALL THAT AP: RR>20/min Cardiovascular Evidence: Not Assessed or None Hematologic Evidence: None/Not assessed Hepatic Evidence: None/Not assessed Metabolic Evidence: None/Not assessed Neurological Evidence: None/Not assessed Respiratory Evidence: Acute Resp failure Renal Evidence: None/Not assessed O2 Sat by Pulse Oximetry: 94 Oxygen Flow Rate: 50.00 CATHERINE DAMON MD May 05, 2021 18:51
[2021-05-05] MEDS: LOVENOX SQ SCH (21:00)
[2021-05-06] VITALS (41 sets, daily range): BP systolic 84–163; BP diastolic 32–105
[2021-05-06] MEDS: ATIVAN IV PRN ×3 (00:58→18:45)
[2021-05-06 04:40] LABS: BASOPHIL % 0.1 % (0.0-0.2); EOSINOPHIL # 0.1 10^3/uL (0.0-0.2); EOSINOPHIL % 0.4 % (0.0-5.0); LYMPHOCYTES # 1.32 10^3/uL1 (1.0-4.8); LYMPHOCYTES % 8.3 % (24.0-44.0); MEAN CORP HGB 29.8 pg (26-34); MONOCYTES # 0.6 10^3/uL (0.3-0.8); MONOCYTES % 3.5 % (5.0-12.0); NEUTROPHIL # 13.9 10^3/uL (1.8-7.7); NEUTROPHILS % 87.7 % (41.0-85.0); PLATELET COUNT 290 10^3/uL (150-400)
[2021-05-06] MEDS: PRECEDEX 400 MCG/100 ML INJECT 100 ML IV SCH (04:50)
[2021-05-06 05:17] LABS: CALCIUM 8.8 mg/dL (8.4-10.5); CARBON DIOXIDE 27.1 mmol/L (20.0-32)
[2021-05-06] MEDS: CARAFATE PO SCH ×4 (07:30→21:00)
[2021-05-06 07:37] LABS: ABG PCO2 35.8 mmHg (35.0-45.0); ABG PH 7.452 (7.350-7.450); BE(B) 0.8 mmol/L (-2.0-2.0); HCO3act 24.4 mmol/L (22.0-26.0); pO2 45.9 mmHg (80.0-100.0)
[2021-05-06] MEDS: PEPCID PO SCH ×2 (08:14→21:00)
[2021-05-06] MEDS: COLACE PO SCH ×2 (08:14→21:00)
[2021-05-06] MEDS: DEXAMETHASONE 10 MG/ML VIAL IV SCH (08:14)
[2021-05-06] MEDS: LOVENOX SQ SCH ×2 (08:30→20:30)
[2021-05-06] MEDS ORDERED: LASIX IV STA (08:48)
--- NOTE | 2021-05-06 09:24 | TELE.CONS ---
Consultation Reason for Consult: Reason for Consultation: resp failure, covid History of Present Illness History of Patient Comments pt remains off Bipap but is requiring HFNC w/ overlying NRB. currently OOB to chair. Review of Systems Allergies: Coded Allergies: ibuprofen (Verified Allergy, Unknown, 04/29/21) naproxen (Verified Allergy, Unknown, 04/29/21) VITALS REVIEW VITALS Vital Sign - Last 24 Hours 05/06/21 05/06/21 08:15 08:30 Pulse 56 Resp 51 B/P (MAP) 94/48 (63) 117/67 (84) Pulse Ox 91 LABS LAB RESULTS Laboratory Tests Test 04/29/21 04:35 04/30/21 04:28 05/01/21 04:32 05/01/21 11:20 White Blood Count 6.2 10^3/uL 6.4 10^3/uL 10.2 10^3/uL Red Blood Count 4.64 10^6/uL 4.49 10^6/uL 4.50 10^6/uL Hemoglobin 13.5 g/dL 13.3 g/dL 13.3 g/dL Hematocrit 41.2 % 39.3 % 39.6 % Mean Corpuscular Volume 88.8 fL 87.5 fL 88.0 fL Mean Corpuscular Hemoglobin 29.1 pg 29.6 pg 29.6 pg Mean Corpuscular Hemoglobin Concent 32.8 g/dL 33.8 g/dL 33.6 g/dL Red Cell Distribution Width 12.5 % 12.1 % 12.1 % Platelet Count 162 10^3/uL 195 10^3/uL 234 10^3/uL Mean Platelet Volume 10.9 fL 10.8 fL 10.4 fL Neutrophils (%) (Auto) 72.3 % 70.8 % Lymphocytes (%) (Auto) 19.0 % 20.6 % Monocytes (%) (Auto) 8.4 % 8.4 % Neutrophils # (Auto) 4.5 10^3/uL 4.5 10^3/uL Lymphocytes # (Auto) 1.17 10^3/uL1 1.32 10^3/uL1 Monocytes # (Auto) 0.5 10^3/uL 0.5 10^3/uL Absolute Immature Granulocyte (auto 0.02 10^3 u/L 0.04 10^3 u/L Absolute Eosinophils (auto) 0.0 10^3/uL 0.0 10^3/uL Immature Granulocytes % 0.30 % 0.60 % Eosinophils % 0.0 % 0.0 % Basophils % 0.0 % 0.2 % Basophils # 0.0 10^3/uL 0.0 10^3/uL Sodium Level 141 mmol/L 142 mmol/L 139 mmol/L Potassium Level 4.0 mmol/L 3.9 mmol/L 3.9 mmol/L Chloride Level 106.0 mmol/L 106.0 mmol/L 105.0 mmol/L Carbon Dioxide Level 25.2 mmol/L 26.2 mmol/L 26.8 mmol/L Anion Gap 13.8 13.7 11.1 Blood Urea Nitrogen 12 mg/dL 17 mg/dL 12 mg/dL Creatinine 0.65 mg/dL 0.54 mg/dL 0.56 mg/dL Estimated GFR () 124.8 154.6 148.2 Est GFR (CKD-EPI)(Non-Afr Mexican) 103.1 127.7 122.5 BUN/Creatinine Ratio 18.0 31.0 21.0 Glucose Level 98 mg/dL 92 mg/dL 87 mg/dL Calcium Level 8.6 mg/dL 8.4 mg/dL 8.8 mg/dL Total Bilirubin 0.5 mg/dL 0.5 mg/dL 0.5 mg/dL Aspartate Amino Transf (AST/SGOT) 42 U/L 40 U/L 36 U/L Alanine Aminotransferase (ALT/SGPT) 47 U/L 42 U/L 39 U/L Alkaline Phosphatase 47 U/L 43 U/L 43 U/L Total Protein 6.6 g/dL 6.6 g/dL 6.7 g/dL Albumin 2.6 g/dL 2.5 g/dL 2.5 g/dL Globulin 4.0 4.1 4.2 Albumin/Globulin Ratio 0.650 0.609 0.595 Serum HCG, Qualitative NEGATIVE Blood Gas Sample Site RT RADIAL ARTERY Blood Gas pH 7.459 Blood Gas PCO2 31.9 mmHg Blood Gas PO2 86.7 mmHg Blood Gas HCO3 22.1 mmol/L Blood Gas Base Excess -0.8 mmol/L Lucas Test POSITIVE Arterial Blood Oxygen Saturation 96.2 % Deoxyhemoglobin 3.8 % Carboxyhemoglobin 0.1 % Methemoglobin 0.1 % Total Hemoglobin 14.8 % Total Oxygen Concentration 20.0 % Blood Gas Temperature 37.0 Oxygen Delivery Method (LAB) BIPAP Blood Gas Vent Mode ST FiO2 80 % Total Carbon Dioxide 23.1 mmol/L Test 05/02/21 06:37 05/02/21 08:25 05/03/21 05:20 05/03/21 07:55 White Blood Count 7.6 10^3/uL 12.0 10^3/uL Red Blood Count 4.62 10^6/uL 4.71 10^6/uL Hemoglobin 13.6 g/dL 13.6 g/dL Hematocrit 40.6 % 41.1 % Mean Corpuscular Volume 87.9 fL 87.3 fL Mean Corpuscular Hemoglobin 29.4 pg 28.9 pg Mean Corpuscular Hemoglobin Concent 33.5 g/dL 33.1 g/dL Red Cell Distribution Width 12.0 % 11.9 % Platelet Count 268 10^3/uL 338 10^3/uL Mean Platelet Volume 10.5 fL 10.2 fL Neutrophils (%) (Auto) 82.9 % 83.2 % Lymphocytes (%) (Auto) 11.7 % 10.3 % Monocytes (%) (Auto) 5.4 % 5.1 % Neutrophils # (Auto) 6.3 10^3/uL 10.0 10^3/uL Lymphocytes # (Auto) 0.89 10^3/uL1 1.24 10^3/uL1 Monocytes # (Auto) 0.4 10^3/uL 0.6 10^3/uL Absolute Immature Granulocyte (auto 0.12 10^3 u/L 0.14 10^3 u/L Absolute Eosinophils (auto) 0.0 10^3/uL 0.0 10^3/uL Immature Granulocytes % 1.60 % 1.20 % Eosinophils % 0.0 % 0.1 % Basophils % 0.0 % 0.1 % Basophils # 0.0 10^3/uL 0.0 10^3/uL Sodium Level 140 mmol/L 140 mmol/L Potassium Level 4.7 mmol/L 4.3 mmol/L Chloride Level 104.0 mmol/L 103.0 mmol/L Carbon Dioxide Level 27.6 mmol/L 28.1 mmol/L Anion Gap 13.1 13.2 Blood Urea Nitrogen 14 mg/dL 18 mg/dL Creatinine 0.62 mg/dL 0.65 mg/dL Estimated GFR () 131.8 124.8 Est GFR (CKD-EPI)(Non-Afr Mexican) 108.9 103.1 BUN/Creatinine Ratio 22.0 27.0 Glucose Level 121 mg/dL 107 mg/dL Calcium Level 8.8 mg/dL 8.9 mg/dL Total Bilirubin 0.4 mg/dL 0.6 mg/dL Aspartate Amino Transf (AST/SGOT) 26 U/L 26 U/L Alanine Aminotransferase (ALT/SGPT) 37 U/L 31 U/L Alkaline Phosphatase 42 U/L 41 U/L Total Protein 6.7 g/dL 6.8 g/dL Albumin 2.5 g/dL 2.6 g/dL Globulin 4.2 4.2 Albumin/Globulin Ratio 0.595 0.619 Blood Gas Sample Site RT RADIAL ARTERY LEFT RADIAL ARTERY Blood Gas pH 7.405 7.416 Blood Gas PCO2 41.1 mmHg 37.1 mmHg Blood Gas PO2 82.5 mmHg 149.3 mmHg Blood Gas HCO3 25.2 mmol/L 23.3 mmol/L Blood Gas Base Excess 0.4 mmol/L -0.8 mmol/L Lucas Test POSITIVE POSITIVE Arterial Blood Oxygen Saturation 95.5 % 98.7 % Deoxyhemoglobin 4.5 % 1.3 % Carboxyhemoglobin 0.6 % 0.4 % Methemoglobin 0.3 % 0.5 % Total Hemoglobin 14.6 % 14.5 % Total Oxygen Concentration 19.5 % 20.2 % Blood Gas Temperature 37 37.00 Oxygen Delivery Method (LAB) BIPAP15/7 BP 15/7 FiO2 99 % 100 % Total Carbon Dioxide 26.4 mmol/L 24.4 mmol/L Blood Gas Vent Mode S/T Test 05/03/21 10:10 05/04/21 10:08 05/05/21 05:08 05/06/21 04:30 D-Dimer 1.21 mg/L 5.32 mg/L Ferritin 697 ng/mL 724 ng/mL Lactate Dehydrogenase 329 U/L White Blood Count 17.0 10^3/uL 14.0 10^3/uL 15.9 10^3/uL Red Blood Count 4.46 10^6/uL 4.70 10^6/uL 4.43 10^6/uL Hemoglobin 12.9 g/dL 13.7 g/dL 13.2 g/dL Hematocrit 38.9 % 41.0 % 39.1 % Mean Corpuscular Volume 87.2 fL 87.2 fL 88.3 fL Mean Corpuscular Hemoglobin 28.9 pg 29.1 pg 29.8 pg Mean Corpuscular Hemoglobin Concent 33.2 g/dL 33.4 g/dL 33.8 g/dL Red Cell Distribution Width 11.8 % 11.9 % 12.0 % Platelet Count 334 10^3/uL 309 10^3/uL 290 10^3/uL Mean Platelet Volume 10.0 fL 9.8 fL 9.8 fL Neutrophils (%) (Auto) 90.6 % 88.5 % 87.7 % Lymphocytes (%) (Auto) 4.4 % 7.5 % 8.3 % Monocytes (%) (Auto) 3.9 % 3.3 % 3.5 % Neutrophils # (Auto) 15.4 10^3/uL 12.3 10^3/uL 13.9 10^3/uL Lymphocytes # (Auto) 0.75 10^3/uL1 1.05 10^3/uL1 1.32 10^3/uL1 Monocytes # (Auto) 0.7 10^3/uL 0.5 10^3/uL 0.6 10^3/uL Absolute Immature Granulocyte (auto 0.16 10^3 u/L 0.19 10^3 u/L 0.16 10^3 u/L Absolute Eosinophils (auto) 0.0 10^3/uL 0.1 10^3/uL 0.1 10^3/uL Immature Granulocytes % 0.90 % 1.40 % 1.00 % Eosinophils % 0.1 % 0.6 % 0.4 % Basophils % 0.1 % 0.1 % 0.1 % Basophils # 0.0 10^3/uL 0.0 10^3/uL 0.0 10^3/uL Sodium Level 135 mmol/L 137 mmol/L 138 mmol/L Potassium Level 3.9 mmol/L 3.6 mmol/L 3.8 mmol/L Chloride Level 102.0 mmol/L 102.0 mmol/L 103.0 mmol/L Carbon Dioxide Level 25.7 mmol/L 26.8 mmol/L 27.1 mmol/L Anion Gap 11.2 11.8 11.7 Blood Urea Nitrogen 20 mg/dL 13 mg/dL 14 mg/dL Creatinine 0.75 mg/dL 0.62 mg/dL 0.66 mg/dL Estimated GFR () 105.8 131.8 122.6 Est GFR (CKD-EPI)(Non-Afr Mexican) 87.4 108.9 101.3 BUN/Creatinine Ratio 26.0 20.0 21.0 Glucose Level 135 mg/dL 86 mg/dL 96 mg/dL Calcium Level 8.8 mg/dL 8.8 mg/dL 8.8 mg/dL Total Bilirubin 0.8 mg/dL 0.8 mg/dL 0.9 mg/dL Aspartate Amino Transf (AST/SGOT) 33 U/L 35 U/L 30 U/L Alanine Aminotransferase (ALT/SGPT) 34 U/L 34 U/L 39 U/L Alkaline Phosphatase 43 U/L 41 U/L 49 U/L Total Protein 6.8 g/dL 6.7 g/dL 6.9 g/dL Albumin 2.5 g/dL 2.4 g/dL 2.4 g/dL Globulin 4.3 4.3 4.5 Albumin/Globulin Ratio 0.581 0.558 0.533 Test 05/06/21 07:27 Blood Gas Sample Site RT BRACIAL ARTERY Blood Gas pH 7.452 Blood Gas PCO2 35.8 mmHg Blood Gas PO2 45.9 mmHg Blood Gas HCO3 24.4 mmol/L Blood Gas Base Excess 0.8 mmol/L Lucas Test N/A Arterial Blood Oxygen Saturation 82.3 % Deoxyhemoglobin 17.6 % Carboxyhemoglobin 0.2 % Methemoglobin 0.2 % Total Hemoglobin 13.5 % Total Oxygen Concentration 15.5 % Oxygen Delivery Method (LAB) CF 50LPM FiO2 100 % Total Carbon Dioxide 25.5 mmol/L Current Medications Medications (Trade) Dose Ordered Sig/Davon Route PRN Reason Start Time Stop Time Status Last Admin Dose Admin Remdesivir 200 mg/ Sodium Chloride 140 ml @ 120.69 mls/ hr OT STAT IV 04/28/21 19:53 04/29/21 08:10 DC 04/28/21 19:53 Remdesivir 100 mg/ Sodium Chloride 120 ml @ 111.111 mls/hr Q24HRS IV 04/29/21 20:00 05/02/21 21:05 DC 05/02/21 20:45 Famotidine (Pepcid) 20 mg BID PO 04/28/21 21:00 05/28/21 20:59 05/06/21 08:14 Sucralfate (Carafate) 1 gm ACHS PO 04/28/21 21:00 05/28/21 20:59 05/06/21 07:30 Enoxaparin Sodium (Lovenox) 40 mg Q24HRS SQ 04/28/21 20:00 05/06/21 08:06 DC 05/05/21 21:00 Sucralfate (Carafate) 1 gm STK-MED ONCE PO 04/28/21 20:56 04/28/21 20:56 DC Lorazepam (Ativan) 1 mg Q4HR PRN IV ANXIETY 04/29/21 00:00 05/29/21 00:00 05/06/21 05:01 Lorazepam (Ativan) 0.5 mg Q4HR PRN IV ANXIETY 04/29/21 00:00 05/06/21 09:00 DC Fentanyl Citrate (Sublimaze) 50 mcg STK-MED ONCE .ROUTE 04/29/21 11:37 04/29/21 11:38 DC Fentanyl Citrate (Sublimaze) 12.5 mcg OT ONCE IV 04/29/21 15:00 04/29/21 15:06 DC 04/29/21 13:35 Acetaminophen (Tylenol) 650 mg Q6HR PRN PO PAIN 1 - 3 04/30/21 18:00 05/02/21 18:00 DC 05/01/21 06:28 Dexmedetomidine HCl 200 mcg/ Sodium Chloride 50 ml @ 0 mls/hr IV 05/01/21 10:30 05/01/21 11:28 DC Sodium Chloride 250 ml @ ud STK-MED ONCE .ROUTE 05/01/21 20:40 05/01/21 20:40 DC Acetaminophen (Tylenol) 650 mg Q6HR PRN PO PAIN 1 - 3 05/02/21 20:30 05/08/21 18:00 05/04/21 21:15 Bisacodyl (Dulcolax Ec Tablet) 5 mg STAT STAT PO 05/03/21 13:45 05/03/21 19:05 DC 05/03/21 14:36 Docusate Sodium (Colace) 100 mg BID PO 05/05/21 09:00 06/04/21 08:59 05/06/21 08:14 Lorazepam (Ativan) 2 mg STK-MED ONCE .ROUTE 05/05/21 02:31 05/05/21 02:31 DC Lorazepam (Ativan) 2 mg STK-MED ONCE .ROUTE 05/05/21 03:46 05/05/21 03:47 DC Furosemide (Lasix) 20 mg OT ONCE IV 05/05/21 11:00 05/05/21 11:01 DC 05/05/21 11:20 Lorazepam (Ativan) 2 mg STK-MED ONCE .ROUTE 05/05/21 20:56 05/05/21 20:56 DC Enoxaparin Sodium (Lovenox) 100 mg Q12H SQ 05/06/21 08:30 06/05/21 08:29 05/06/21 08:30 Furosemide (Lasix) 20 mg STAT STAT IV 05/06/21 08:48 05/06/21 09:00 DC VTE VTE Risk Total Score: 5 VTE Risk Score VTE Risk: Score 0-1 = Low Risk (Aggressive mobilization; early ambulation; no VTE prophylaxis required) Score 2: Moderate Risk (Intermittent/Pneumatic Compression Device OR Lovenox/Heparin/Coumadin) Score 3-4: High Risk (Intermittent/Pneumatic Compression Device AND Lovenox/Heparin/Coumadin) Score > or =5: Highest Risk (Intermittent/Pneumatic Compression Device AND Lovenox/Heparin/Coumadin) VTE VTE Present on Admission: No Currently receiving anticoagul: Yes VTE Risk Total Score: 5 Assessment/Plan Assessment/Plan Problems: (1) Pneumonia due to COVID-19 virus Status: Acute Assessment & Plan: This is a 35-year-old woman admitted with Covid/ARDS. Pt remains fairly comfortable off bipap but still w/ high Fio2 requirments. EMR data was reviewed Diagnosis: Covid pneumonia, ARDS Plan: Hypoxic respiratory failure secondary to Covid pneumonia. The patient is tolerating periods off of BiPAP with high flow nasal cannula plus nonrebreather. cont to encourage use of incentive spirometer and self proning. -On precedex gtt to help the patient tolerate oxygen delivery therapies. Covid specific therapies include steroids. Remdesivir was administered from 04/28-05/02. cont to encourage PO intake Current blood work does not suggest any other organ injury, though the patient continues to remain at high risk and should be monitored at least daily. On enoxaparin for DVT prophylaxis and Pepcid for SBP Full code -lasix x 1 Plan reviewed with bedside team. Patient seen through remote audiovisual assessment through HIPAA compliant setup. All labs, flowsheets, and images reviewed Cumulative nonprocedural critical care time spent in directed patient care = 60min ICD Code: U07.1 - COVID-19; J12.82 - Pneumonia due to coronavirus disease 2018 SNOMED: [id number] COURTNEY WINTERS MD May 06, 2021 09:24
--- NOTE | 2021-05-06 11:38 | PRM.PN ---
VTE VTE Risk Total Score: 5 VTE Risk Score VTE Risk: Score 0-1 = Low Risk (Aggressive mobilization; early ambulation; no VTE prophylaxis required) Score 2: Moderate Risk (Intermittent/Pneumatic Compression Device OR Lovenox/Heparin/Coumadin) Score 3-4: High Risk (Intermittent/Pneumatic Compression Device AND Lovenox/Heparin/Coumadin) Score > or =5: Highest Risk (Intermittent/Pneumatic Compression Device AND Lovenox/Heparin/Coumadin) Antico:Hep/LMWH/Coum/Xarelto: Yes Mechanical device ordered: Yes Review of Systems Constitutional: Chills, Weakness Eyes: No: Conjunctivae inflammation ENT: No: Nose pain, Nose discharge Respiratory: Cough, Dry, Shortness of breath, SOB with excertion Cardiovascular: No: Chest Pain, Orthopnea Gastrointestinal: Nausea Genitourinary: No Dysuria, No Frequency Musculoskeletal: No: back pain, hand pain Skin: No: Jaundice Neurological: Weakness; No: Numbness, Incoordination Allergies: Coded Allergies: ibuprofen (Verified Allergy, Unknown, 04/29/21) naproxen (Verified Allergy, Unknown, 04/29/21) Objective Vitals and I/O Vital Sign - Last 24 Hours 05/05/21 05/05/21 05/05/21 05/05/21 11:47 12:00 12:00 12:15 Temp 98.8 Pulse 110 104 103 Resp 38 B/P (MAP) 129/83 (98) 103/73 (83) 108/67 (81) Pulse Ox 72 74 86 O2 Delivery Comfort Doug O2 Flow Rate 50.00 05/05/21 05/05/21 05/05/21 05/05/21 12:30 12:45 13:00 13:15 Pulse 99 101 94 78 Resp 10 34 33 39 B/P (MAP) 144/57 (86) 102/63 (76) 113/62 (79) 115/62 (79) Pulse Ox 98 96 100 97 05/05/21 05/05/21 05/05/21 05/05/21 13:30 13:45 14:00 14:15 Pulse 97 85 128 86 Resp 41 39 17 B/P (MAP) 119/70 (86) 99/58 (72) 111/58 (75) 108/55 (72) Pulse Ox 97 98 95 84 805/05/21 05/05/21 05/05/21 14:30 14:45 15:00 15:30 Pulse 70 94 105 80 Resp 35 26 39 B/P (MAP) 104/60 (75) 116/87 (97) 118/60 (79) 107/57 (74) Pulse Ox 100 91 93 98 05/05/21 05/05/21 05/05/21 05/05/21 15:45 16:00 16:00 16:15 Temp 98.9 Pulse 72 74 79 Resp 35 25 19 B/P (MAP) 104/63 (77) 110/58 (75) 110/63 (79) Pulse Ox 100 100 95 O2 Delivery Comfort Doug O2 Flow Rate 50.00 05/05/21 05/05/21 05/05/21 05/05/21 16:23 16:30 16:45 17:00 Pulse 78 64 60 59 Resp 39 14 28 B/P (MAP) 107/60 (76) 119/64 (82) 117/74 (88) Pulse Ox 93 98 97 O2 Delivery Comfort Doug O2 Flow Rate 50.00 FiO2 100 05/05/21 05/05/21 05/05/21 05/05/21 17:15 17:30 17:45 17:47 Pulse 61 59 69 93 Resp 28 28 30 47 B/P (MAP) 112/67 (82) 114/68 (83) Pulse Ox 97 97 94 90 05/05/21 05/05/21 05/05/21 05/05/21 18:00 18:02 18:15 18:31 Pulse 75 85 79 74 Resp 44 38 22 21 B/P (MAP) 136/75 (95) 110/40 (63) 120/76 (91) Pulse Ox 88 86 91 94 05/05/21 05/05/21 05/05/21 05/05/21 19:00 19:00 19:01 19:01 Temp 97.8 Pulse 66 66 60 60 Resp 15 15 15 15 B/P (MAP) 104/61 (75) 104/61 (75) Pulse Ox 95 95 96 96 05/05/21 05/05/21 05/05/21 05/05/21 19:15 19:15 19:45 23:29 Pulse 55 55 Resp 29 29 B/P (MAP) 110/61 (77) 110/61 (77) Pulse Ox 98 98 O2 Delivery Comfort Doug Comfort Doug O2 Flow Rate 50.00 50.00 05/05/21 05/05/21 05/06/21 05/06/21 23:34 23:41 00:56 01:23 Temp 97.9 Pulse 55 57 57 Resp 20 18 20 B/P (MAP) 115/72 (86) 109/65 (80) 115/84 (94) Pulse Ox 96 95 96 05/06/21 05/06/21 05/06/21 05/06/21 03:13 03:15 08:15 08:30 Temp 98.0 Pulse 57 56 Resp 24 51 B/P (MAP) 115/58 (77) 94/48 (63) 117/67 (84) Pulse Ox 97 91 O2 Delivery Comfort Doug O2 Flow Rate 50.00 05/06/21 05/06/21 05/06/21 05/06/21 08:45 08:48 09:00 09:15 Temp 99.2 Pulse 72 88 68 Resp 32 47 41 B/P (MAP) 94/56 (69) 102/63 84/37 (53) 99/54 (69) Pulse Ox 92 85 96 05/06/21 05/06/21 05/06/21 05/06/21 09:30 09:42 09:45 10:00 Pulse 72 69 83 83 Resp 44 32 69 43 B/P (MAP) 98/58 (71) 88/47 (61) 93/48 (63) Pulse Ox 97 93 91 91 O2 Delivery Comfort Doug O2 Flow Rate 50.00 FiO2 100 05/06/21 10:09 Pulse 69 B/P (MAP) 100/63 (75) Pulse Ox 88 Intake and Output 05/06/21 07:00 Intake Total 2179 ml Output Total 2200 ml Balance -21 ml General: Alert, Oriented X3, Cooperative, moderate distress HEENT: Atraumatic, PERRLA, EOMI Neck: Supple Lungs: Other (Coarse bilateral breath sounds, respirations labored) Heart: No murmurs Abdomen: Normal bowel sounds, Soft Extremities: No clubbing, No cyanosis Skin: No rashes, No breakdown Neuro: Normal speech, Normal tone Psych/Mental Status: Mental status NL, Mood NL All Results(Lab/Rad) Laboratory Tests Test 05/02/21 06:37 05/02/21 08:25 White Blood Count 7.6 10^3/uL Red Blood Count 4.62 10^6/uL Hemoglobin 13.6 g/dL Hematocrit 40.6 % Mean Corpuscular Volume 87.9 fL Mean Corpuscular Hemoglobin 29.4 pg Mean Corpuscular Hemoglobin Concent 33.5 g/dL Red Cell Distribution Width 12.0 % Platelet Count 268 10^3/uL Mean Platelet Volume 10.5 fL Neutrophils (%) (Auto) 82.9 % Lymphocytes (%) (Auto) 11.7 % Monocytes (%) (Auto) 5.4 % Neutrophils # (Auto) 6.3 10^3/uL Lymphocytes # (Auto) 0.89 10^3/uL1 Monocytes # (Auto) 0.4 10^3/uL Absolute Immature Granulocyte (auto 0.12 10^3 u/L Absolute Eosinophils (auto) 0.0 10^3/uL Immature Granulocytes % 1.60 % Eosinophils % 0.0 % Basophils % 0.0 % Basophils # 0.0 10^3/uL Sodium Level 140 mmol/L Potassium Level 4.7 mmol/L Chloride Level 104.0 mmol/L Carbon Dioxide Level 27.6 mmol/L Anion Gap 13.1 Blood Urea Nitrogen 14 mg/dL Creatinine 0.62 mg/dL Estimated GFR () 131.8 Est GFR (CKD-EPI)(Non-Afr Honduran) 108.9 BUN/Creatinine Ratio 22.0 Glucose Level 121 mg/dL Calcium Level 8.8 mg/dL Total Bilirubin 0.4 mg/dL Aspartate Amino Transf (AST/SGOT) 26 U/L Alanine Aminotransferase (ALT/SGPT) 37 U/L Alkaline Phosphatase 42 U/L Total Protein 6.7 g/dL Albumin 2.5 g/dL Globulin 4.2 Albumin/Globulin Ratio 0.595 Blood Gas Sample Site RT RADIAL ARTERY Blood Gas pH 7.405 Blood Gas PCO2 41.1 mmHg Blood Gas PO2 82.5 mmHg Blood Gas HCO3 25.2 mmol/L Blood Gas Base Excess 0.4 mmol/L Lucas Test POSITIVE Arterial Blood Oxygen Saturation 95.5 % Deoxyhemoglobin 4.5 % Carboxyhemoglobin 0.6 % Methemoglobin 0.3 % Total Hemoglobin 14.6 % Total Oxygen Concentration 19.5 % Blood Gas Temperature 37 Oxygen Delivery Method (LAB) BIPAP15/7 FiO2 99 % Total Carbon Dioxide 26.4 mmol/L Current Medications Medications (Trade) Dose Ordered Sig/Davon Route PRN Reason Start Time Stop Time Status Last Admin Dose Admin Remdesivir 200 mg/ Sodium Chloride 140 ml @ 120.69 mls/ hr OT STAT IV 04/28/21 19:53 04/29/21 08:10 DC 04/28/21 19:53 Remdesivir 100 mg/ Sodium Chloride 120 ml @ 111.111 mls/hr Q24HRS IV 04/29/21 20:00 05/02/21 21:05 05/01/21 20:50 Famotidine (Pepcid) 20 mg BID PO 04/28/21 21:00 05/28/21 20:59 05/02/21 09:29 Sucralfate (Carafate) 1 gm ACHS PO 04/28/21 21:00 05/28/21 20:59 05/02/21 07:30 Enoxaparin Sodium (Lovenox) 40 mg Q24HRS SQ 04/28/21 20:00 05/28/21 19:59 05/01/21 20:50 Sucralfate (Carafate) 1 gm STK-MED ONCE PO 04/28/21 20:56 04/28/21 20:56 DC Lorazepam (Ativan) 1 mg Q4HR PRN IV ANXIETY 04/29/21 00:00 05/29/21 00:00 04/30/21 22:30 Lorazepam (Ativan) 0.5 mg Q4HR PRN IV ANXIETY 04/29/21 00:00 05/29/21 00:00 Fentanyl Citrate (Sublimaze) 50 mcg STK-MED ONCE .ROUTE 04/29/21 11:37 04/29/21 11:38 DC Fentanyl Citrate (Sublimaze) 12.5 mcg OT ONCE IV 04/29/21 15:00 04/29/21 15:06 DC 04/29/21 13:35 Acetaminophen (Tylenol) 650 mg Q6HR PRN PO PAIN 1 - 3 04/30/21 18:00 05/02/21 18:00 05/01/21 06:28 Dexmedetomidine HCl 200 mcg/ Sodium Chloride 50 ml @ 0 mls/hr IV 05/01/21 10:30 05/01/21 11:28 DC Sodium Chloride 250 ml @ ud STK-MED ONCE .ROUTE 05/01/21 20:40 05/01/21 20:40 DC Assessment/Plan Assessment/Plan Problems: (1) Pneumonia due to COVID-19 virus Status: Acute ICD Code: U07.1 - COVID-19; J12.82 - Pneumonia due to coronavirus disease 2019 SNOMED: [id number] (2) Acute and chronic respiratory failure with hypoxia ICD Code: J96.21 - Acute and chronic respiratory failure with hypoxia SNOMED: 93712633, [id number] Plan COVID Pneumonia Acute hypoxic respiratory failure Class 1 obesity PLAN BiPAP as needed. High flow nasal cannula,when BiPAP off Dexamethasone daily Counseled on sleeping prone Remdesivir completed PRN melatonin for bedtime DVT: Lovenox Diet: regular Docusate BID for constipation GI: Famotidine Code: Full dispo: continue to monitor for clinical improvement ALANNA GARCIA MD May 06, 2021 11:38
--- NOTE | 2021-05-06 14:22 | DIET.OP ---
Nutrition Asmt/Malnutrit 2-17 Actual Date of Review: May 06, 2021 Nutritional Screening: Other (LOS) Diagnosis: covid pneumonia Pertinent Medical Hx/Surgical: none Subjective Information: f/u - pt is off Bipap but is requiring HFNC w/ overlying NRB. PO intake has improved to 50% of most meals the last 2-3 days. Current Diet Order/Nutrition S: regular Pertinent Meds Current Medications Medications (Trade) Dose Ordered Sig/Davon Route PRN Reason Start Time Stop Time Status Last Admin Dose Admin Remdesivir 200 mg/ Sodium Chloride 140 ml @ 120.69 mls/ hr OT STAT IV 04/28/21 19:53 04/29/21 08:10 DC 04/28/21 19:53 Remdesivir 100 mg/ Sodium Chloride 120 ml @ 111.111 mls/hr Q24HRS IV 04/29/21 20:00 05/02/21 21:05 DC 05/02/21 20:45 Famotidine (Pepcid) 20 mg BID PO 04/28/21 21:00 05/28/21 20:59 05/06/21 08:14 Sucralfate (Carafate) 1 gm ACHS PO 04/28/21 21:00 05/28/21 20:59 05/06/21 11:30 Enoxaparin Sodium (Lovenox) 40 mg Q24HRS SQ 04/28/21 20:00 05/06/21 08:06 DC 05/05/21 21:00 Sucralfate (Carafate) 1 gm STK-MED ONCE PO 04/28/21 20:56 04/28/21 20:56 DC Lorazepam (Ativan) 1 mg Q4HR PRN IV ANXIETY 04/29/21 00:00 05/29/21 00:00 05/06/21 05:01 Lorazepam (Ativan) 0.5 mg Q4HR PRN IV ANXIETY 04/29/21 00:00 05/06/21 09:00 DC Fentanyl Citrate (Sublimaze) 50 mcg STK-MED ONCE .ROUTE 04/29/21 11:37 04/29/21 11:38 DC Fentanyl Citrate (Sublimaze) 12.5 mcg OT ONCE IV 04/29/21 15:00 04/29/21 15:06 DC 04/29/21 13:35 Acetaminophen (Tylenol) 650 mg Q6HR PRN PO PAIN 1 - 3 04/30/21 18:00 05/02/21 18:00 DC 05/01/21 06:28 Dexmedetomidine HCl 200 mcg/ Sodium Chloride 50 ml @ 0 mls/hr IV 05/01/21 10:30 05/01/21 11:28 DC Sodium Chloride 250 ml @ ud STK-MED ONCE .ROUTE 05/01/21 20:40 05/01/21 20:40 DC Acetaminophen (Tylenol) 650 mg Q6HR PRN PO PAIN 1 - 3 05/02/21 20:30 05/08/21 18:00 05/04/21 21:15 Bisacodyl (Dulcolax Ec Tablet) 5 mg STAT STAT PO 05/03/21 13:45 05/03/21 19:05 DC 05/03/21 14:36 Docusate Sodium (Colace) 100 mg BID PO 05/05/21 09:00 06/04/21 08:59 05/06/21 08:14 Lorazepam (Ativan) 2 mg STK-MED ONCE .ROUTE 05/05/21 02:31 05/05/21 02:31 DC Lorazepam (Ativan) 2 mg STK-MED ONCE .ROUTE 05/05/21 03:46 05/05/21 03:47 DC Furosemide (Lasix) 20 mg OT ONCE IV 05/05/21 11:00 05/05/21 11:01 DC 05/05/21 11:20 Lorazepam (Ativan) 2 mg STK-MED ONCE .ROUTE 05/05/21 20:56 05/05/21 20:56 DC Enoxaparin Sodium (Lovenox) 100 mg Q12H SQ 05/06/21 08:30 06/05/21 08:29 05/06/21 08:30 Furosemide (Lasix) 20 mg STAT STAT IV 05/06/21 08:48 05/06/21 09:00 DC 05/06/21 08:48 Pertinent Labs Laboratory Tests Test 05/05/21 05:08 05/06/21 04:30 05/06/21 07:27 White Blood Count 14.0 10^3/uL 15.9 10^3/uL Red Blood Count 4.70 10^6/uL 4.43 10^6/uL Hemoglobin 13.7 g/dL 13.2 g/dL Hematocrit 41.0 % 39.1 % Mean Corpuscular Volume 87.2 fL 88.3 fL Mean Corpuscular Hemoglobin 29.1 pg 29.8 pg Mean Corpuscular Hemoglobin Concent 33.4 g/dL 33.8 g/dL Red Cell Distribution Width 11.9 % 12.0 % Platelet Count 309 10^3/uL 290 10^3/uL Mean Platelet Volume 9.8 fL 9.8 fL Neutrophils (%) (Auto) 88.5 % 87.7 % Lymphocytes (%) (Auto) 7.5 % 8.3 % Monocytes (%) (Auto) 3.3 % 3.5 % Neutrophils # (Auto) 12.3 10^3/uL 13.9 10^3/uL Lymphocytes # (Auto) 1.05 10^3/uL1 1.32 10^3/uL1 Monocytes # (Auto) 0.5 10^3/uL 0.6 10^3/uL Absolute Immature Granulocyte (auto 0.19 10^3 u/L 0.16 10^3 u/L Absolute Eosinophils (auto) 0.1 10^3/uL 0.1 10^3/uL Immature Granulocytes % 1.40 % 1.00 % Eosinophils % 0.6 % 0.4 % Basophils % 0.1 % 0.1 % Basophils # 0.0 10^3/uL 0.0 10^3/uL Sodium Level 137 mmol/L 138 mmol/L Potassium Level 3.6 mmol/L 3.8 mmol/L Chloride Level 102.0 mmol/L 103.0 mmol/L Carbon Dioxide Level 26.8 mmol/L 27.1 mmol/L Anion Gap 11.8 11.7 Blood Urea Nitrogen 13 mg/dL 14 mg/dL Creatinine 0.62 mg/dL 0.66 mg/dL Estimated GFR () 131.8 122.6 Est GFR (CKD-EPI)(Non-Afr English) 108.9 101.3 BUN/Creatinine Ratio 20.0 21.0 Glucose Level 86 mg/dL 96 mg/dL Calcium Level 8.8 mg/dL 8.8 mg/dL Total Bilirubin 0.8 mg/dL 0.9 mg/dL Aspartate Amino Transf (AST/SGOT) 35 U/L 30 U/L Alanine Aminotransferase (ALT/SGPT) 34 U/L 39 U/L Alkaline Phosphatase 41 U/L 49 U/L Total Protein 6.7 g/dL 6.9 g/dL Albumin 2.4 g/dL 2.4 g/dL Globulin 4.3 4.5 Albumin/Globulin Ratio 0.558 0.533 D-Dimer 5.32 mg/L Ferritin 724 ng/mL Blood Gas Sample Site RT BRACIAL ARTERY Blood Gas pH 7.452 Blood Gas PCO2 35.8 mmHg Blood Gas PO2 45.9 mmHg Blood Gas HCO3 24.4 mmol/L Blood Gas Base Excess 0.8 mmol/L Lucas Test N/A Arterial Blood Oxygen Saturation 82.3 % Deoxyhemoglobin 17.6 % Carboxyhemoglobin 0.2 % Methemoglobin 0.2 % Total Hemoglobin 13.5 % Total Oxygen Concentration 15.5 % Oxygen Delivery Method (LAB) CF 50LPM FiO2 100 % Total Carbon Dioxide 25.5 mmol/L Height (Feet): 5 Height (Inches): 5 Current Weight: 224 Usual Weight: 225 %UBW: 100 %IBW: 179 Recent Weight Change: No (no change from admission wt - previous wt likely error) Weight Status: Obese GI Symptoms: Constipation (colace noted in NOV) Food Allergies: No Cultural/Ethnic/Baptism Cookie: none known Usual Diet at Home: regular Skin Integrity/Comment: No Current %PO: Fair(50-74%) Calories/Kcals/K-25 kcal/kg IBW Kcals Calculated: 8054-6975 kcal-wt loss Protein g/k-1.5 g/kg IBW Protein Calculated: 56-85g Fluid: ml: 2363 ml (25 ml/kg) Nutritional Problem: Nutr. Problems Present Problems: Inadequate oral intake Etiology: covid pneumonia/reduced appetite Signs/Symptoms: 50% po intake of most meals meeting approximately 75% of caloric needs for wt loss RD Comments: 1. Continue regular diet. Encourage po intake. Small frequent meals and snacks. 2. Monitor wt and po intake Expected Outcomes 65-100% po intake of most meals the next 3-5 days to meet 100% of nutrition needs for wt loss. discharge on regular diet Malnutrtion/Nutrition Risk Edu: No Notificiation Needed?: No Viviane Martini May 06, 2021 14:22
[2021-05-06] MEDS ORDERED: HUMULIN R ONE (19:13)
[2021-05-06 19:55] LABS: ABG PCO2 40.1 mmHg (35.0-45.0); ABG PH 7.478 (7.350-7.450); BE(B) 5.2 mmol/L (-2.0-2.0); HCO3act 29.1 mmol/L (22.0-26.0); pO2 54.5 mmHg (80.0-100.0)
--- NOTE | 2021-05-06 19:59 | TELE.CONS ---
Review of Systems Constitutional: Chills, Weakness Eyes: No: Conjunctivae inflammation ENT: No: Nose pain, Nose discharge Respiratory: Cough, Dry, Shortness of breath, SOB with excertion Cardiovascular: No: Chest Pain, Orthopnea Gastrointestinal: Nausea Genitourinary: No Dysuria, No Frequency Musculoskeletal: No: back pain, hand pain Skin: No: Jaundice Neurological: Weakness; No: Numbness, Incoordination Allergies: Coded Allergies: ibuprofen (Verified Allergy, Unknown, 04/29/21) naproxen (Verified Allergy, Unknown, 04/29/21) VITALS REVIEW VITALS Vital Sign - Last 24 Hours 05/03/21 05/03/21 05/03/21 05/03/21 07:00 07:01 07:15 07:30 Pulse 50 74 49 48 Resp B/P (MAP) 105/71 (82) 95/49 (64) 95/55 (68) Pulse Ox 96 95 96 97 05/03/21 05/03/21 05/03/21 05/03/21 08:00 08:00 08:00 08:15 Pulse 68 68 68 65 Resp 27 37 27 25 Pulse Ox 96 97 96 94 O2 Delivery S/T Bi-pap FiO2 100 100 05/03/21 05/03/21 05/03/21 05/03/21 08:30 08:32 08:45 09:11 Temp 99.5 Pulse 60 57 66 Resp 28 23 22 B/P (MAP) 108/68 (81) Pulse Ox 96 95 95 O2 Delivery Bi-pap O2 Flow Rate 100.00 05/03/21 05/03/21 05/03/21 05/03/21 09:15 09:30 09:31 09:46 Pulse 57 66 63 62 Resp 25 20 28 B/P (MAP) 106/61 (76) 107/59 (75) 110/53 (72) Pulse Ox 93 92 76 94 05/03/21 05/03/21 05/03/21 05/03/21 09:46 12:08 12:08 12:15 Pulse 65 65 58 Resp 24 31 29 Pulse Ox 98 97 89 O2 Delivery S/T S/T Bi-pap Comfort Doug O2 Flow Rate 100.00 50.00 FiO2 100 95 100 05/03/21 05/03/21 05/03/21 05/03/21 12:41 14:02 16:07 16:45 Pulse 58 59 62 63 Resp 28 33 29 29 Pulse Ox 96 94 91 93 O2 Delivery S/T S/T S/T S/T FiO2 95 90 85 90 05/03/21 05/03/21 05/03/21 05/03/21 17:41 18:21 18:30 18:45 Temp 98.1 98.1 Pulse 58 64 57 Resp 23 32 B/P (MAP) 97/59 (72) 100/67 (78) Pulse Ox 88 92 91 O2 Delivery Comfort Doug Bi-pap O2 Flow Rate 50.00 100.00 FiO2 100 05/03/21 05/03/21 05/03/21 05/03/21 19:00 19:01 19:15 19:30 Temp 98.1 98.1 98.1 98.1 Pulse 55 57 49 53 Resp 19 17 29 22 B/P (MAP) 101/37 (58) 104/62 (76) 102/73 (83) Pulse Ox 91 92 94 91 05/03/21 05/03/21 05/03/21 05/03/21 19:45 19:56 20:00 20:15 Temp 98.1 98.1 98.1 Pulse 65 63 66 68 Resp 24 35 30 B/P (MAP) 121/49 (73) 97/67 (77) 106/60 (75) Pulse Ox 84 90 88 90 O2 Delivery S/T FiO2 90 05/03/21 05/03/21 05/03/21 05/03/21 20:30 20:45 21:00 21:15 Pulse 55 51 80 51 Resp 27 25 18 11 B/P (MAP) 104/60 (75) 97/56 (70) 101/63 (76) 92/51 (65) Pulse Ox 90 91 86 90 05/03/21 05/03/21 05/03/21 05/03/21 21:30 21:45 22:00 22:09 Pulse 47 50 53 53 Resp 26 81 17 18 B/P (MAP) 96/54 (68) 103/46 (65) 74/42 (53) 88/53 (65) Pulse Ox 93 93 86 93 05/03/21 05/03/21 05/03/21 05/03/21 22:10 22:15 22:16 22:19 Pulse 50 50 49 Resp 27 14 24 B/P (MAP) 86/46 (59) 92/52 (65) Pulse Ox 93 91 O2 Delivery Bi-pap S/T O2 Flow Rate 100.00 FiO2 90 05/03/21 05/03/21 05/03/21 05/03/21 22:30 22:45 23:00 23:15 Pulse 45 46 50 49 Resp 8 31 8 22 B/P (MAP) 85/49 (61) 94/53 (67) 116/57 (76) 98/54 (69) Pulse Ox 90 89 88 05/03/21 05/03/21 05/04/21 05/04/21 23:30 23:45 00:00 00:08 Temp 98.5 Pulse 56 48 49 47 Resp 16 17 26 24 B/P (MAP) 99/58 (72) 96/59 (71) 97/60 (72) Pulse Ox 85 88 91 90 O2 Delivery S/T FiO2 90 05/04/21 05/04/21 05/04/21 05/04/21 00:15 00:30 00:45 01:00 Pulse 48 47 51 51 Resp 23 24 16 24 B/P (MAP) 111/62 (78) 102/39 (60) 109/81 (90) 101/61 (74) Pulse Ox 89 89 87 88 05/04/21 05/04/21 05/04/21 05/04/21 01:15 01:30 01:45 01:55 Pulse 52 52 52 51 Resp 22 23 22 23 B/P (MAP) 107/63 (78) 101/58 (72) 112/54 (73) Pulse Ox 90 90 91 92 O2 Delivery S/T FiO2 90 05/04/21 05/04/21 05/04/21 05/04/21 02:00 02:15 02:30 02:45 Pulse 53 54 51 52 Resp 29 24 24 24 B/P (MAP) 103/56 (72) 103/61 (75) 100/58 (72) 100/65 (77) Pulse Ox 91 91 91 91 05/04/21 05/04/21 05/04/21 05/04/21 02:59 03:00 03:15 03:30 Pulse 52 53 66 Resp 26 29 26 B/P (MAP) 107/65 (79) 106/64 (78) 132/77 (95) Pulse Ox 95 93 O2 Delivery Bi-pap O2 Flow Rate 100.00 05/04/21 05/04/21 05/04/21 05/04/21 03:45 03:52 04:00 04:15 Pulse 52 51 66 60 Resp 25 24 25 27 B/P (MAP) 101/58 (72) 111/75 (87) 101/61 (74) Pulse Ox 88 91 92 91 O2 Delivery S/T FiO2 90 05/04/21 05/04/21 05/04/21 05/04/21 04:30 04:45 06:00 06:25 Pulse 51 Resp 16 25 24 B/P (MAP) 104/61 (75) 115/66 (82) Pulse Ox 88 89 91 O2 Delivery S/T Bi-pap O2 Flow Rate 100.00 FiO2 100 05/04/21 05/04/21 05/04/21 05/04/21 08:01 08:01 08:15 08:30 Pulse 97 62 84 92 Resp 26 24 33 28 B/P (MAP) 101/63 (76) 138/67 (90) 118/64 (82) Pulse Ox 92 92 92 93 O2 Delivery Comfort Doug O2 Flow Rate 50.00 FiO2 100 05/04/21 05/04/21 05/04/21 05/04/21 08:35 08:46 09:00 09:15 Pulse 87 79 76 Resp 13 14 20 B/P (MAP) 116/60 (78) 137/65 (89) 89/55 (66) Pulse Ox 85 89 89 O2 Delivery Comfort Doug O2 Flow Rate 50.00 05/04/21 05/04/21 05/04/21 05/04/21 09:23 09:30 09:45 10:00 Pulse 70 68 69 60 Resp 30 15 30 28 B/P (MAP) 100/67 (78) 87/49 (62) 87/37 (54) 81/38 (52) Pulse Ox 89 89 05/04/21 05/04/21 05/04/21 05/04/21 10:15 10:30 10:45 11:21 Pulse 66 75 60 60 Resp 28 30 27 27 B/P (MAP) 97/48 (64) 98/54 (69) 89/47 (61) Pulse Ox 91 89 93 93 O2 Delivery Comfort Doug O2 Flow Rate 50.00 FiO2 100 05/04/21 05/04/21 05/04/21 05/04/21 12:15 12:15 12:30 12:31 Temp 98.2 Pulse 52 69 71 Resp 15 16 17 B/P (MAP) 97/55 (69) 129/93 (105) Pulse Ox 94 93 93 O2 Delivery Comfort Doug O2 Flow Rate 50.00 05/04/21 05/04/21 05/04/21 05/04/21 12:45 13:00 13:15 13:30 Pulse 69 78 60 60 Resp 24 17 11 26 B/P (MAP) 98/44 (62) 109/69 (82) 102/52 (69) 97/56 (70) Pulse Ox 87 89 90 95 05/04/21 05/04/21 05/04/21 05/04/21 14:15 14:30 14:45 15:00 Pulse 55 52 79 65 Resp 27 25 25 25 B/P (MAP) 100/57 (71) 104/55 (71) 121/70 (87) 105/60 (75) Pulse Ox 90 92 90 89 05/04/21 05/04/21 05/04/21 05/04/21 15:15 15:30 15:45 15:54 Pulse 53 52 60 60 Resp 26 27 27 22 B/P (MAP) 100/66 (77) 103/63 (76) 110/68 (82) Pulse Ox 93 94 93 93 O2 Delivery Comfort Doug O2 Flow Rate 50.00 FiO2 100 05/04/21 05/04/21 05/04/21 05/04/21 16:00 16:16 16:30 16:45 Temp 97.8 Pulse 66 56 51 56 Resp 19 28 16 12 B/P (MAP) 143/78 (99) 100/54 (69) 114/65 (81) 125/91 (102) Pulse Ox 86 89 95 93 05/04/21 05/04/21 05/04/21 05/04/21 16:53 19:01 19:15 19:25 Pulse 61 55 Resp 9 22 B/P (MAP) 108/65 (79) 106/59 (75) Pulse Ox 94 93 O2 Delivery Comfort Doug Comfort Doug O2 Flow Rate 50.00 50.00 05/04/21 05/04/21 05/04/21 05/04/21 19:30 19:46 20:00 20:16 Pulse 55 60 57 58 Resp 11 17 17 11 B/P (MAP) 89/54 (66) 114/68 (83) 103/63 (76) 99/52 (68) Pulse Ox 90 92 95 91 05/04/21 05/04/21 05/04/21 05/04/21 20:30 20:45 21:00 21:02 Pulse 60 59 57 67 Resp 31 15 76 B/P (MAP) 103/70 (81) 97/63 (74) 106/62 (77) Pulse Ox 90 90 93 90 05/04/21 05/04/21 05/04/21 05/04/21 21:15 21:30 22:00 22:15 Pulse 68 68 49 48 Resp 36 19 26 24 B/P (MAP) 103/46 (65) 97/61 (73) 113/58 (76) 105/64 (78) Pulse Ox 85 89 93 93 05/04/21 05/04/21 05/04/21 05/04/21 22:31 22:45 23:00 23:15 Pulse 99 59 52 52 Resp 104 32 29 28 B/P (MAP) 56/33 (41) 113/56 (75) 117/62 (80) 115/56 (75) Pulse Ox 79 90 91 92 05/04/21 05/04/21 05/04/21 05/04/21 23:30 23:36 23:37 23:45 Pulse 53 52 52 Resp 28 32 28 B/P (MAP) 111/56 (74) 106/65 (79) Pulse Ox 91 90 90 O2 Delivery Comfort Doug Comfort Doug O2 Flow Rate 50.00 50.00 FiO2 100 05/05/21 05/05/21 05/05/21 05/05/21 00:00 00:15 00:30 00:45 Pulse 52 54 56 57 Resp 26 26 24 27 B/P (MAP) 109/63 (78) 106/63 (77) 114/69 (84) 118/64 (82) Pulse Ox 90 89 89 90 05/05/21 05/05/21 05/05/21 05/05/21 01:00 01:15 01:30 01:46 Pulse 56 56 62 54 Resp 31 25 27 27 B/P (MAP) 120/71 (87) 129/52 (77) 131/50 (77) 119/47 (71) Pulse Ox 88 88 88 92 05/05/21 05/05/21 05/05/21 05/05/21 02:00 02:15 02:30 02:45 Pulse 86 61 71 79 Resp 147 28 28 28 B/P (MAP) 101/58 (72) 103/55 (71) 113/61 (78) 135/64 (87) Pulse Ox 85 85 88 83 05/05/21 05/05/21 05/05/21 05/05/21 03:00 03:15 03:35 03:45 Pulse 72 65 71 Resp 28 33 33 B/P (MAP) 124/70 (88) 107/63 (78) 114/62 (79) Pulse Ox 86 87 92 O2 Delivery Comfort Doug O2 Flow Rate 50.00 05/05/21 05/05/21 05/05/21 05/05/21 04:01 04:17 04:31 04:45 Pulse 105 114 108 84 Resp 30 16 41 39 B/P (MAP) 107/54 (71) 113/76 (88) 104/72 (83) 124/64 (84) Pulse Ox 82 81 83 84 05/05/21 05/05/21 05/05/21 05/05/21 05:00 05:15 05:30 05:46 Pulse 89 121 100 102 Resp 39 30 41 38 B/P (MAP) 115/62 (79) 112/50 (70) 122/76 (91) 121/62 (81) Pulse Ox 88 81 90 95 05/05/21 05/05/21 05/05/21 05/05/21 06:00 06:15 07:00 07:15 Pulse 122 115 119 100 Resp 48 51 53 49 B/P (MAP) 107/67 (80) 110/67 (81) 112/64 (80) 112/64 (80) Pulse Ox 92 88 80 91 05/05/21 05/05/21 05/05/21 05/05/21 07:30 07:45 08:00 08:01 Pulse 98 119 118 Resp 44 50 41 B/P (MAP) 110/60 (77) 102/57 (72) 128/65 (86) Pulse Ox 91 82 85 O2 Delivery Comfort Doug O2 Flow Rate 50.00 05/05/21 05/05/21 05/05/21 05/05/21 08:15 08:31 08:45 09:00 Pulse 111 104 117 123 Resp 48 37 47 52 B/P (MAP) 115/70 (85) 119/64 (82) 147/63 (91) 164/79 (107) Pulse Ox 90 91 89 77 05/05/21 05/05/21 05/05/21 05/05/21 09:03 09:04 09:15 09:30 Pulse 53 106 104 Resp 31 31 38 39 B/P (MAP) 102/57 (72) 108/64 (79) Pulse Ox 94 91 92 95 O2 Delivery Comfort Doug O2 Flow Rate 50.00 FiO2 100 05/05/21 05/05/21 05/05/21 05/05/21 09:45 10:00 10:15 10:31 Pulse 100 104 100 106 Resp 48 21 18 41 B/P (MAP) 102/57 (72) 105/70 (82) 110/64 (79) 112/44 (66) Pulse Ox 93 97 95 87 05/05/21 05/05/21 05/05/21 05/05/21 10:46 11:00 11:15 11:20 Pulse 104 98 83 Resp 24 23 40 B/P (MAP) 136/61 (86) 110/50 (70) 92/54 (67) 103/73 Pulse Ox 92 93 98 05/05/21 05/05/21 05/05/21 05/05/21 11:30 11:47 12:00 12:00 Temp 98.8 Pulse 98 110 104 Resp 44 38 B/P (MAP) 103/73 (83) 129/83 (98) 103/73 (83) Pulse Ox 96 72 74 O2 Delivery Comfort Doug O2 Flow Rate 50.00 05/05/21 05/05/21 05/05/21 05/05/21 12:15 12:30 12:45 13:00 Pulse 103 99 101 94 Resp 10 34 33 B/P (MAP) 108/67 (81) 144/57 (86) 102/63 (76) 113/62 (79) Pulse Ox 86 98 96 100 05/05/21 05/05/21 05/05/21 05/05/21 13:15 13:30 13:45 14:00 Pulse 78 97 85 128 Resp 39 41 39 B/P (MAP) 115/62 (79) 119/70 (86) 99/58 (72) 111/58 (75) Pulse Ox 97 97 98 95 05/05/21 05/05/21 05/05/21 05/05/21 14:15 14:30 14:45 15:00 Pulse 86 70 94 105 Resp 17 35 26 B/P (MAP) 108/55 (72) 104/60 (75) 116/87 (97) 118/60 (79) Pulse Ox 84 100 91 93 05/05/21 05/05/21 05/05/21 05/05/21 15:30 15:45 16:00 16:00 Temp 98.9 Pulse 80 72 74 Resp 39 35 25 B/P (MAP) 107/57 (74) 104/63 (77) 110/58 (75) Pulse Ox 98 100 100 O2 Delivery Comfort Doug O2 Flow Rate 50.00 05/05/21 05/05/21 05/05/21 05/05/21 16:15 16:23 16:30 16:45 Pulse 79 78 64 60 Resp 19 39 14 B/P (MAP) 110/63 (79) 107/60 (76) 119/64 (82) Pulse Ox 95 93 98 O2 Delivery Comfort Doug O2 Flow Rate 50.00 FiO2 100 05/05/21 05/05/21 05/05/21 05/05/21 17:00 17:15 17:30 17:45 Pulse 59 61 59 69 Resp 28 28 28 30 B/P (MAP) 117/74 (88) 112/67 (82) 114/68 (83) Pulse Ox 97 97 97 94 05/05/21 05/05/21 05/05/21 05/05/21 17:47 18:00 18:02 18:15 Pulse 93 75 85 79 Resp 47 44 38 22 B/P (MAP) 136/75 (95) 110/40 (63) Pulse Ox 90 88 86 91 05/05/21 05/05/21 05/05/21 05/05/21 18:31 19:00 19:00 19:01 Temp 97.8 Pulse 74 66 66 60 Resp 21 15 15 15 B/P (MAP) 120/76 (91) 104/61 (75) Pulse Ox 94 95 95 96 05/05/21 05/05/21 05/05/21 05/05/21 19:01 19:15 19:15 19:45 Pulse 60 55 55 Resp 15 29 29 B/P (MAP) 104/61 (75) 110/61 (77) 110/61 (77) Pulse Ox 96 98 98 O2 Delivery Comfort Doug O2 Flow Rate 50.00 05/05/21 05/05/21 05/05/21 05/06/21 23:29 23:34 23:41 00:56 Temp 97.9 Pulse 55 57 Resp 20 18 B/P (MAP) 115/72 (86) 109/65 (80) Pulse Ox 96 95 O2 Delivery Comfort Doug O2 Flow Rate 50.00 05/06/21 05/06/21 05/06/21 05/06/21 01:23 03:13 03:15 08:00 Temp 98.0 Pulse 57 57 Resp 20 24 B/P (MAP) 115/84 (94) 115/58 (77) Pulse Ox 96 97 O2 Delivery Comfort Doug Comfort Doug O2 Flow Rate 50.00 50.00 05/06/21 05/06/21 05/06/21 05/06/21 08:15 08:30 08:45 08:48 Temp 99.2 Pulse 56 72 Resp 51 32 B/P (MAP) 94/48 (63) 117/67 (84) 94/56 (69) 102/63 Pulse Ox 91 92 05/06/21 05/06/21 05/06/21 05/06/21 09:00 09:15 09:30 09:42 Pulse 88 68 72 69 Resp 47 41 44 32 B/P (MAP) 84/37 (53) 99/54 (69) 98/58 (71) Pulse Ox 85 96 97 93 O2 Delivery Comfort Doug O2 Flow Rate 50.00 FiO2 100 05/06/21 05/06/21 05/06/21 05/06/21 09:45 10:00 10:09 10:45 Pulse 83 83 69 62 Resp 69 43 23 B/P (MAP) 88/47 (61) 93/48 (63) 100/63 (75) 106/60 (75) Pulse Ox 91 91 88 97 05/06/21 05/06/21 05/06/21 05/06/21 11:00 11:16 11:30 11:45 Pulse 62 78 75 65 Resp 40 13 78 B/P (MAP) 103/52 (69) 111/49 (69) 108/58 (75) 88/57 (67) Pulse Ox 97 97 97 100 05/06/21 05/06/21 05/06/21 05/06/21 12:00 12:01 12:30 12:45 Pulse 120 67 74 Resp 53 32 112 B/P (MAP) 107/71 (83) 93/49 (64) 98/43 (61) Pulse Ox 87 93 96 O2 Delivery Comfort Doug O2 Flow Rate 50.00 05/06/21 05/06/21 05/06/21 05/06/21 13:00 13:15 13:30 13:45 Pulse 59 71 67 66 Resp 47 116 19 B/P (MAP) 95/43 (60) 85/32 (49) 97/43 (61) 112/41 (64) Pulse Ox 100 98 100 90 05/06/21 05/06/21 05/06/21 05/06/21 14:00 14:15 14:30 14:45 Pulse 67 85 65 78 Resp 37 34 33 36 B/P (MAP) 101/55 (70) 121/105 (110) 98/64 (75) 103/56 (72) Pulse Ox 97 86 95 85 05/06/21 05/06/21 05/06/21 05/06/21 15:00 15:15 15:30 15:36 Pulse 70 66 74 78 Resp 43 49 28 B/P (MAP) 126/63 (84) 116/55 (75) 117/72 (87) Pulse Ox 95 96 99 97 O2 Delivery Comfort Doug O2 Flow Rate 50.00 FiO2 100 05/06/21 05/06/21 05/06/21 05/06/21 15:45 16:00 16:00 16:15 Pulse 70 61 66 Resp 47 39 24 B/P (MAP) 118/63 (81) 102/60 (74) 133/70 (91) Pulse Ox 98 94 95 O2 Delivery Comfort Doug O2 Flow Rate 50.00 05/06/21 05/06/21 05/06/21 05/06/21 16:31 16:45 17:15 17:31 Pulse 69 82 68 72 Resp 49 16 40 23 B/P (MAP) 163/79 (107) 120/60 (80) 110/57 (74) 89/39 (56) Pulse Ox 87 91 95 75 05/06/21 05/06/21 05/06/21 05/06/21 17:45 18:00 18:16 19:00 Pulse 85 74 66 110 Resp 50 47 47 B/P (MAP) 111/59 (76) 91/55 (67) 149/62 (91) Pulse Ox 85 92 92 72 FiO2 100 05/06/21 05/06/21 05/06/21 05/06/21 19:49 20:30 20:32 20:35 Pulse 110 77 84 Resp 34 24 14 Pulse Ox 91 88 97 O2 Delivery Mechanical Ventilator O2 Flow Rate 14.00 FiO2 100 100 100 05/06/21 05/06/21 05/06/21 05/07/21 22:35 23:00 23:00 00:12 Pulse 80 77 Resp 26 24 24 Pulse Ox 91 88 O2 Delivery Mechanical Ventilator O2 Flow Rate 14.00 FiO2 100 100 05/07/21 05/07/21 05/07/21 00:35 03:02 03:02 Pulse 84 77 Resp 14 24 Pulse Ox 97 88 O2 Delivery Mechanical Ventilator O2 Flow Rate 14.00 FiO2 100 100 Intake and Output 05/07/21 07:00 Intake Total 2018 ml Output Total 1600 ml Balance 418 ml VTE VTE Risk Total Score: 5 VTE Risk Score VTE Risk: Score 0-1 = Low Risk (Aggressive mobilization; early ambulation; no VTE prophylaxis required) Score 2: Moderate Risk (Intermittent/Pneumatic Compression Device OR Lovenox/Heparin/Coumadin) Score 3-4: High Risk (Intermittent/Pneumatic Compression Device AND Lovenox/Heparin/Coumadin) Score > or =5: Highest Risk (Intermittent/Pneumatic Compression Device AND Lovenox/Heparin/Coumadin) Antico:Hep/LMWH/Coum/Xarelto: Yes Mechanical device ordered: Yes VTE VTE Present on Admission: No Currently receiving anticoagul: Yes VTE Risk Total Score: 5 Antico:Hep/LMWH/Coum/Xarelto: Yes Mechanical device ordered: Yes Assessment/Plan Assessment/Plan Assessment/Plan Tele-ICU Consult Note Reason for consult: hypoxia HPI: History obtained from the chart and patients nurses b/c pt on bipap. Patient is admitted w/ covid pneumonia and was weaned off bipap early today and had been on HFNC+NRB. Patient progressively desats and required placement of bipap again. Per notes, she has already completed remdivisir course. She is still on dexamethasone. She has not received Tocilizumab. Nursing staff called for evaluation b/c her O2sat in 80s despite awake proning on bipap Meds: reviewed PMH/PSH/FH/SH: see admission note ROS: unable to obtained O: Vitals reviewed. Gen appearance: lying in bed prone on bipap See Nurse physical bedside exam Labs and imaging reviewed Impression/Problem list: Respiratory failure COVID19 pneumonia Suspect superimposed bacterial pneumonia Plan: Immediate nursing concerns addressed: no acute issues Drips: precedex #Neuro- sedated. Titrate precedex up as needed. Post intubation c/w propofol, precedex and add fentanyl drip but since no drip available will do fent 100mcg push hrly. Paralysis for asynchrony w/ vent as needed #CVS- start Levophed so sedation can be optimized #Pulm- initially, Bipap settings titrated to 20/10 from 15/7 R increased to 25 from 12. At f/up, patient had required intubation b/c she had deteriorated. [44/14/100% peep 14]- adjust vent to IBW 57Kg- thus decrease vt 350 and increase RR 20. Repeat ABG to eval for resp acidosis. Prone per protocol. consider eval for ECMO #GI- tube feeds as tolerated #Endo-monitor FS q6h #Renal. Monitor urine output and Scr. #Heme/onc- monitor plt and transfuse if H&H <7 #ID-panculture if febrile. Start Zosyn, send Mrsa nares and sputum cx. complete course of treatment for covid. consider ID eval. GI ppx-on famotidine DVT ppx- on lovenox I discussed patient with MUSEUM EDUCATOR and I saw this patient and completed a full visual exam via audio-visual HIPAA compliant technology Tele-ICU ccm time: 60 min RASHMI BLUE-GIULIA AMAYA May 06, 2021 19:59
--- NOTE | 2021-05-06 20:10 | NUR ---
Spoke with patients sister regarding need for intubation. Dr. Clarke updated family member on patients condition. All questions answered. Patient spoke with and agreed for intubation.
[2021-05-06] MEDS ORDERED: DIPRIVAN 100 ML IV ONE (20:19)
--- NOTE | 2021-05-06 20:43 | NUR ---
CALLED TO ICU FOR PT DESATTING, NURSE PLACED PT ON BIPAP FFPR LOW SPO2 OF 70S. DID NOT IMPROVE, SPO2 VARIED FROM 50S-89. DR. BARBOZA CALLED AND ORDERS TO PLACE PATIENT BACK IN BED AND PRONE. PT SPO2 IMPROVED SLIGHTLY TO 90S, AND RR STAYED IN THE 40S. [facility] CALLED AND BIPAP SETTINGS CHANGED AND PT CONTINUED TO DETERIORATE. Addendum: 05/06/21 at 2046 by Altagracia Nolasco [employer] CONTR[employer]ER RT Amended: Links added.
--- NOTE | 2021-05-06 21:02 | DIREP ---
PROCEDURE:CHEST 1 VIEW COMPARISON:[facility], CR, XRAY CHEST SINGLE VW, 05/01/2021, 10:49 AM. INDICATIONS:covid patient w/ worsening hypoxia eval for pulm edema, pneumothorax FINDINGS: LUNGS/PLEURA:Worsening multi lobar airspace disease most prominent bilateral lung bases VASCULATURE:Normal. Unremarkable pulmonary vasculature. CARDIAC:Normal. No cardiac silhouette abnormality or cardiomegaly. MEDIASTINUM:Normal. No visible mass or adenopathy. BONES:Normal. No fracture or visible bony lesion. OTHER:Negative. CONCLUSION:Worsening multi lobar airspace disease most probably in the bilateral lung bases. Dictated by: Ky Cloud DO on 05/06/2021 at 08:57 PM
--- NOTE | 2021-05-06 21:03 | DIREP ---
PROCEDURE:CHEST 1 VIEW COMPARISON:[facility], CR, XRAY CHEST SINGLE VW, 05/06/2021, 07:40 PM. INDICATIONS:ET AND OG TUBE PLACEMENT FINDINGS: LUNGS/PLEURA:Grossly stable multi lobar infiltrates, most prominently in the bilateral lung bases. VASCULATURE:Normal. Unremarkable pulmonary vasculature. CARDIAC:Normal. No cardiac silhouette abnormality or cardiomegaly. MEDIASTINUM:Normal. No visible mass or adenopathy. BONES:Normal. No fracture or visible bony lesion. OTHER:Placement of endotracheal tube with distal tip approximately 4.8 cm above the arabella. Placement of enteric tube with distal side port overlying the gastric body. CONCLUSION:Grossly stable multi lobar infiltrates with placement of endotracheal and enteric tubes as detailed above Dictated by: Ky Cloud DO on 05/06/2021 at 09:01 PM
[2021-05-06] MEDS ORDERED: NORCURON ONE (22:24)
[2021-05-06] MEDS: DIPRIVAN IV PRN (22:49)
[2021-05-06] MEDS ORDERED: NORCURON IV PRN (23:00)
[2021-05-07] VITALS (66 sets, daily range): BP systolic 100–157; BP diastolic 59–95
[2021-05-07] MEDS ORDERED: NORCURON ONE (00:20)
[2021-05-07 00:27] LABS: ABG PCO2 36.9 mmHg (35.0-45.0); ABG PH 7.473 (7.350-7.450); BE(B) 2.9 mmol/L (-2.0-2.0); HCO3act 26.4 mmol/L (22.0-26.0); pO2 38.1 mmHg (80.0-100.0)
[2021-05-07] MEDS ORDERED: DIPRIVAN 100 ML IV ONE ×4 (01:53→23:47)
[2021-05-07] MEDS: ZOSYN 4.5 GM 4.5 GM in NS 100ML 100 ML IV SCH ×4 (04:00→21:06)
[2021-05-07] MEDS ORDERED: SUBLIMAZE IV SCH (04:00)
[2021-05-07 04:25] LABS: BASOPHIL % 0.1 % (0.0-0.2); EOSINOPHIL % 0.1 % (0.0-5.0); LYMPHOCYTES # 0.99 10^3/uL1 (1.0-4.8); LYMPHOCYTES % 6.1 % (24.0-44.0); MEAN CORP HGB 29.4 pg (26-34); MONOCYTES # 0.7 10^3/uL (0.3-0.8); MONOCYTES % 4.3 % (5.0-12.0); NEUTROPHIL # 14.6 10^3/uL (1.8-7.7); NEUTROPHILS % 89.4 % (41.0-85.0); PLATELET COUNT 268 10^3/uL (150-400)
[2021-05-07] MEDS: LEVOPHED 8 MG in NS 250ML 250 ML IV SCH (04:36)
[2021-05-07] MEDS ORDERED: LEVOPHED ONE (04:38)
[2021-05-07] MEDS ORDERED: NS 250ML 250 ML ONE (04:38)
[2021-05-07 04:40] LABS: CARBON DIOXIDE 29.2 mmol/L (20.0-32)
[2021-05-07] MEDS: SUBLIMAZE IV PRN ×2 (05:00→06:41)
[2021-05-07] MEDS: NORCURON IV PRN ×3 (05:52→22:01)
[2021-05-07 07:07] LABS: ABG PCO2 48.1 mmHg (35.0-45.0); ABG PH 7.338 (7.350-7.450); HCO3act 25.3 mmol/L (22.0-26.0); pO2 51.4 mmHg (80.0-100.0)
[2021-05-07] MEDS: CARAFATE PO SCH ×4 (07:30→21:00)
[2021-05-07] MEDS ORDERED: DIPRIVAN IV ONE (08:00)
[2021-05-07] MEDS ORDERED: NORCURON IV ONE (08:00)
[2021-05-07] MEDS ORDERED: QUELICIN IV ONE (08:00)
[2021-05-07] MEDS: LOVENOX SQ SCH ×2 (08:30→20:30)
[2021-05-07] MEDS: DEXAMETHASONE 10 MG/ML VIAL IV SCH ×2 (09:00→21:00)
[2021-05-07] MEDS: PEPCID IV SCH ×2 (09:30→21:00)
[2021-05-07] MEDS: COLACE NG SCH ×2 (09:30→21:00)
--- NOTE | 2021-05-07 10:23 | PRM.PN ---
Subjective Subjective Date: May 07, 2021 Time: 09:00 Subjective Patient was intubated last night for worsening respiratory failure. Patient requiring high FiO2 100% on high PEEP. Initially patient was hard to ventilate. After proning, and using neuromuscular blocking agent, patient is easier to ventilate. Still requiring high PEEP and high FiO2. Case was discussed with patient family yesterday updated them about her condition, worsening, and need for intubation. VTE VTE Risk Total Score: 5 VTE Risk Score VTE Risk: Score 0-1 = Low Risk (Aggressive mobilization; early ambulation; no VTE prophylaxis required) Score 2: Moderate Risk (Intermittent/Pneumatic Compression Device OR Lovenox/Heparin/Coumadin) Score 3-4: High Risk (Intermittent/Pneumatic Compression Device AND Lovenox/Heparin/Coumadin) Score > or =5: Highest Risk (Intermittent/Pneumatic Compression Device AND Lovenox/Heparin/Coumadin) Antico:Hep/LMWH/Coum/Xarelto: Yes Mechanical device ordered: Yes Review of Systems Constitutional: Chills, Weakness Eyes: No: Conjunctivae inflammation ENT: No: Nose pain, Nose discharge Respiratory: Cough, Dry, Shortness of breath, SOB with excertion Cardiovascular: No: Chest Pain, Orthopnea Gastrointestinal: Nausea Genitourinary: No Dysuria, No Frequency Musculoskeletal: No: back pain, hand pain Skin: No: Jaundice Neurological: Weakness; No: Numbness, Incoordination Allergies: Coded Allergies: ibuprofen (Verified Allergy, Unknown, 04/29/21) naproxen (Verified Allergy, Unknown, 04/29/21) Objective Vitals and I/O Vital Sign - Last 24 Hours 05/06/21 05/06/21 05/06/21 05/06/21 10:45 11:00 11:16 11:30 Pulse 62 62 78 75 Resp 23 40 13 B/P (MAP) 106/60 (75) 103/52 (69) 111/49 (69) 108/58 (75) Pulse Ox 97 97 97 97 05/06/21 05/06/21 05/06/21 05/06/21 11:45 12:00 12:01 12:30 Pulse 65 120 67 Resp 78 53 32 B/P (MAP) 88/57 (67) 107/71 (83) 93/49 (64) Pulse Ox 100 87 93 O2 Delivery Comfort Doug O2 Flow Rate 50.00 05/06/21 05/06/21 05/06/21 05/06/21 12:45 13:00 13:15 13:30 Pulse 74 59 71 67 Resp 112 47 116 B/P (MAP) 98/43 (61) 95/43 (60) 85/32 (49) 97/43 (61) Pulse Ox 96 100 98 100 05/06/21 05/06/21 05/06/21 05/06/21 13:45 14:00 14:15 14:30 Pulse 66 67 85 65 Resp 19 37 34 33 B/P (MAP) 112/41 (64) 101/55 (70) 121/105 (110) 98/64 (75) Pulse Ox 90 97 86 95 05/06/21 05/06/21 05/06/21 05/06/21 14:45 15:00 15:15 15:30 Pulse 78 70 66 74 Resp 36 43 49 B/P (MAP) 103/56 (72) 126/63 (84) 116/55 (75) 117/72 (87) Pulse Ox 85 95 96 99 05/06/21 05/06/21 05/06/21 05/06/21 15:36 15:45 16:00 16:00 Pulse 78 70 61 Resp 28 47 39 B/P (MAP) 118/63 (81) 102/60 (74) Pulse Ox 97 98 94 O2 Delivery Comfort Doug Comfort Doug O2 Flow Rate 50.00 50.00 FiO2 100 05/06/21 05/06/21 05/06/21 05/06/21 16:15 16:31 16:45 17:15 Pulse 66 69 82 68 Resp 24 49 16 40 B/P (MAP) 133/70 (91) 163/79 (107) 120/60 (80) 110/57 (74) Pulse Ox 95 87 91 95 05/06/21 05/06/21 05/06/21 05/06/21 17:31 17:45 18:00 18:16 Pulse 72 85 74 66 Resp 23 50 47 B/P (MAP) 89/39 (56) 111/59 (76) 91/55 (67) 149/62 (91) Pulse Ox 75 85 92 92 05/06/21 05/06/21 05/06/21 05/06/21 19:00 19:49 20:30 20:32 Pulse 110 110 77 Resp 47 34 24 Pulse Ox 72 91 88 O2 Delivery Mechanical Ventilator O2 Flow Rate 14.00 FiO2 100 100 100 05/06/21 05/06/21 05/06/21 05/06/21 20:35 22:35 23:00 23:00 Pulse 84 80 77 Resp 14 26 24 Pulse Ox 97 91 88 O2 Delivery Mechanical Ventilator O2 Flow Rate 14.00 FiO2 100 100 100 05/07/21 05/07/21 05/07/21 05/07/21 00:12 00:35 03:02 03:02 Pulse 84 77 Resp 24 14 24 Pulse Ox 97 88 O2 Delivery Mechanical Ventilator O2 Flow Rate 14.00 FiO2 100 100 05/07/21 05/07/21 03:15 05:37 Pulse 59 67 Resp 25 21 Pulse Ox 97 96 FiO2 100 100 Intake and Output 05/07/21 07:00 Intake Total 2018 ml Output Total 2800 ml Balance -782 ml General: Other (Intubated sedated.) HEENT: Atraumatic, PERRLA, EOMI Neck: Supple Lungs: Other (Coarse bilateral breath sounds, respirations labored) Heart: No murmurs Abdomen: Normal bowel sounds, Soft Extremities: No clubbing, No cyanosis Skin: No rashes, No breakdown Neuro: Other (Intubated sedated.) Psych/Mental Status: Other (Intubated sedated.) All Results(Lab/Rad) Laboratory Tests Test 05/02/21 06:37 05/02/21 08:25 White Blood Count 7.6 10^3/uL Red Blood Count 4.62 10^6/uL Hemoglobin 13.6 g/dL Hematocrit 40.6 % Mean Corpuscular Volume 87.9 fL Mean Corpuscular Hemoglobin 29.4 pg Mean Corpuscular Hemoglobin Concent 33.5 g/dL Red Cell Distribution Width 12.0 % Platelet Count 268 10^3/uL Mean Platelet Volume 10.5 fL Neutrophils (%) (Auto) 82.9 % Lymphocytes (%) (Auto) 11.7 % Monocytes (%) (Auto) 5.4 % Neutrophils # (Auto) 6.3 10^3/uL Lymphocytes # (Auto) 0.89 10^3/uL1 Monocytes # (Auto) 0.4 10^3/uL Absolute Immature Granulocyte (auto 0.12 10^3 u/L Absolute Eosinophils (auto) 0.0 10^3/uL Immature Granulocytes % 1.60 % Eosinophils % 0.0 % Basophils % 0.0 % Basophils # 0.0 10^3/uL Sodium Level 140 mmol/L Potassium Level 4.7 mmol/L Chloride Level 104.0 mmol/L Carbon Dioxide Level 27.6 mmol/L Anion Gap 13.1 Blood Urea Nitrogen 14 mg/dL Creatinine 0.62 mg/dL Estimated GFR () 131.8 Est GFR (CKD-EPI)(Non-Afr [place] Islander) 108.9 BUN/Creatinine Ratio 22.0 Glucose Level 121 mg/dL Calcium Level 8.8 mg/dL Total Bilirubin 0.4 mg/dL Aspartate Amino Transf (AST/SGOT) 26 U/L Alanine Aminotransferase (ALT/SGPT) 37 U/L Alkaline Phosphatase 42 U/L Total Protein 6.7 g/dL Albumin 2.5 g/dL Globulin 4.2 Albumin/Globulin Ratio 0.595 Blood Gas Sample Site RT RADIAL ARTERY Blood Gas pH 7.405 Blood Gas PCO2 41.1 mmHg Blood Gas PO2 82.5 mmHg Blood Gas HCO3 25.2 mmol/L Blood Gas Base Excess 0.4 mmol/L Lucas Test POSITIVE Arterial Blood Oxygen Saturation 95.5 % Deoxyhemoglobin 4.5 % Carboxyhemoglobin 0.6 % Methemoglobin 0.3 % Total Hemoglobin 14.6 % Total Oxygen Concentration 19.5 % Blood Gas Temperature 37 Oxygen Delivery Method (LAB) BIPAP15/7 FiO2 99 % Total Carbon Dioxide 26.4 mmol/L Current Medications Medications (Trade) Dose Ordered Sig/Davon Route PRN Reason Start Time Stop Time Status Last Admin Dose Admin Remdesivir 200 mg/ Sodium Chloride 140 ml @ 120.69 mls/ hr OT STAT IV 04/28/21 19:53 04/29/21 08:10 DC 04/28/21 19:53 Remdesivir 100 mg/ Sodium Chloride 120 ml @ 111.111 mls/hr Q24HRS IV 04/29/21 20:00 05/02/21 21:05 05/01/21 20:50 Famotidine (Pepcid) 20 mg BID PO 04/28/21 21:00 05/28/21 20:59 05/02/21 09:29 Sucralfate (Carafate) 1 gm ACHS PO 04/28/21 21:00 05/28/21 20:59 05/02/21 07:30 Enoxaparin Sodium (Lovenox) 40 mg Q24HRS SQ 04/28/21 20:00 05/28/21 19:59 05/01/21 20:50 Sucralfate (Carafate) 1 gm STK-MED ONCE PO 04/28/21 20:56 04/28/21 20:56 DC Lorazepam (Ativan) 1 mg Q4HR PRN IV ANXIETY 04/29/21 00:00 05/29/21 00:00 04/30/21 22:30 Lorazepam (Ativan) 0.5 mg Q4HR PRN IV ANXIETY 04/29/21 00:00 05/29/21 00:00 Fentanyl Citrate (Sublimaze) 50 mcg STK-MED ONCE .ROUTE 04/29/21 11:37 04/29/21 11:38 DC Fentanyl Citrate (Sublimaze) 12.5 mcg OT ONCE IV 04/29/21 15:00 04/29/21 15:06 DC 04/29/21 13:35 Acetaminophen (Tylenol) 650 mg Q6HR PRN PO PAIN 1 - 3 04/30/21 18:00 05/02/21 18:00 05/01/21 06:28 Dexmedetomidine HCl 200 mcg/ Sodium Chloride 50 ml @ 0 mls/hr IV 05/01/21 10:30 05/01/21 11:28 DC Sodium Chloride 250 ml @ ud STK-MED ONCE .ROUTE 05/01/21 20:40 05/01/21 20:40 DC Assessment/Plan Assessment/Plan Problems: (1) Acute and chronic respiratory failure with hypoxia ICD Code: J96.21 - Acute and chronic respiratory failure with hypoxia SNOMED: 28938991, 845650321 (2) Pneumonia due to COVID-19 virus Status: Acute ICD Code: U07.1 - COVID-19; J12.82 - Pneumonia due to coronavirus disease 2019 SNOMED: 336375216094166509 Plan Continue full ventilator support. IV dexamethasone, will increase to 10 mg IV twice a day Remdesivir Empiric IV antibiotic for possible bacterial superinfection Consult dietitian for tube feedings GI prophylaxis DVT prophylaxis Lovenox Further critical care management as per telemetry lobster catcher Case discussed with JAVA J2EE APPLICATION DEVELOPERdrum printer was updated last night about the patient condition and need for intubation. Patient presenting with potentially life-threatening condition, critical care time spent reviewing labs, images, examining the patient, discussing the case with JAVA J2EE APPLICATION DEVELOPER, and documentation 71 minutes. ALANNA GARCIA MD May 07, 2021 10:23
[2021-05-07] MEDS: SUBLIMAZE 2,000 MCG in NS 250ML 160 ML IV SCH ×2 (10:30→16:54)
[2021-05-07 11:08] LABS: LYMPHOCYTE 12 % (25-36); MONOCYTE 3 % (3-9); SEGMENTED NEUTROPHILS 85 % (31-76)
--- NOTE | 2021-05-07 12:39 | TELE.CONS ---
Consultation Reason for Consult: Reason for Consultation: ARDS, COVID pneumonia History of Present Illness History of Patient Comments Patient is a 35 yo with COVID pneumonia and hypoxic respiratory failure/ARDS. Had been tolerating BiPAP, HFNC fairly well but overnight she has an episode of desaturation that she was unable to recover from and required intubation and initiation of mechanical ventilation. Currently she is sedated, paralyzed and proned. Vent settings AV 14/400/1.0/+12, breathing at 20-30. PAP 20-low 30s. HR 49 1. COVID pneumonia with hypoxic respiratory failure. Intubated on MV. - plan for proning 16 on/8 off. She will be turned in about an hour, once this is done and she is settled would begin weaning FIO2 as her sats are good. - continue paralysis for approx 48 hours to decrease O2 needs. She is not completely paralyzed as she breathes above the vent. - sedation with dexmetatomidine. HR noted low on at least on occasion, monitor. Transitioning to include fentanyl and lessen sedation. - full dose A/C therapy with enoxaparin for elevated d-dimer - completed therapy for COVID - empiric pip-tazo. Procalcitonin is low so could consider d/c unless there is an obvious source and especially if her leukocytosis resolves off steroids 2. Hypotension- related to sedatives likely. On norepi. - wean norepi to keep MAP 65. Review of Systems Constitutional: Chills, Weakness Eyes: No: Conjunctivae inflammation ENT: No: Nose pain, Nose discharge Respiratory: Cough, Dry, Shortness of breath, SOB with excertion Cardiovascular: No: Chest Pain, Orthopnea Gastrointestinal: Nausea Genitourinary: No Dysuria, No Frequency Musculoskeletal: No: back pain, hand pain Skin: No: Jaundice Neurological: Weakness; No: Numbness, Incoordination Allergies: Coded Allergies: ibuprofen (Verified Allergy, Unknown, 04/29/21) naproxen (Verified Allergy, Unknown, 04/29/21) VITALS REVIEW VITALS Vital Sign - Last 24 Hours 05/07/21 05/07/21 07:58 07:58 Pulse 49 49 Resp 30 30 Pulse Ox 95 95 O2 Delivery Mechanical Ventilator FiO2 100 100 VTE VTE Risk Total Score: 5 VTE Risk Score VTE Risk: Score 0-1 = Low Risk (Aggressive mobilization; early ambulation; no VTE prophylaxis required) Score 2: Moderate Risk (Intermittent/Pneumatic Compression Device OR Lovenox/Heparin/Coumadin) Score 3-4: High Risk (Intermittent/Pneumatic Compression Device AND Lovenox/Heparin/Coumadin) Score > or =5: Highest Risk (Intermittent/Pneumatic Compression Device AND Lovenox/Heparin/Coumadin) Antico:Hep/LMWH/Coum/Xarelto: Yes Mechanical device ordered: Yes VTE VTE Present on Admission: No Currently receiving anticoagul: Yes VTE Risk Total Score: 5 Antico:Hep/LMWH/Coum/Xarelto: Yes Mechanical device ordered: Yes Assessment/Plan Assessment/Plan Assessment/Plan Continue full ventilator support. IV dexamethasone, will increase to 10 mg IV twice a day Remdesivir Empiric IV antibiotic for possible bacterial superinfection Consult dietitian for tube feedings GI prophylaxis DVT prophylaxis Lovenox Further critical care management as per telemetry leather tacker Case discussed with COLLECTIONS CLERKtipple engineer was updated last night about the patient condition and need for intubation. Patient presenting with potentially life-threatening condition, critical care time spent reviewing labs, images, examining the patient, discussing the case with COLLECTIONS CLERK, and documentation 71 minutes. Plan Continue full ventilator support. IV dexamethasone, will increase to 10 mg IV twice a day Remdesivir Empiric IV antibiotic for possible bacterial superinfection Consult dietitian for tube feedings GI prophylaxis DVT prophylaxis Lovenox Further critical care management as per telemetry leather tacker Case discussed with COLLECTIONS CLERKtipple engineer was updated last night about the patient condition and need for intubation. Patient presenting with potentially life-threatening condition, critical care time spent reviewing labs, images, examining the patient, discussing the case with COLLECTIONS CLERK, and documentation 71 minutes. GARDENIA BANKS MD May 07, 2021 12:39
[2021-05-07] MEDS: DIPRIVAN IV PRN ×3 (20:00→23:00)
[2021-05-08] VITALS (152 sets, daily range): BP systolic 76–130; BP diastolic 40–80
[2021-05-08] MEDS: DIPRIVAN IV PRN ×2 (02:00→04:00)
[2021-05-08] MEDS ORDERED: DIPRIVAN 100 ML IV ONE ×3 (03:45→11:27)
[2021-05-08] MEDS: ZOSYN 4.5 GM 4.5 GM in NS 100ML 100 ML IV SCH ×4 (04:00→21:43)
[2021-05-08 05:11] LABS: LYMPHOCYTES # 0.79 10^3/uL1 (1.0-4.8); LYMPHOCYTES % 4.5 % (24.0-44.0); MEAN CORP HGB 29.2 pg (26-34); MONOCYTES # 0.3 10^3/uL (0.3-0.8); MONOCYTES % 1.8 % (5.0-12.0); NEUTROPHIL # 16.6 10^3/uL (1.8-7.7); NEUTROPHILS % 93.7 % (41.0-85.0); PLATELET COUNT 291 10^3/uL (150-400); RED CELL DISTRIBUTION WIDTH 12.5 % (11.5-14.5)
[2021-05-08 05:30] LABS: CALCIUM 9.2 mg/dL (8.4-10.5); CARBON DIOXIDE 30.6 mmol/L (20.0-32)
[2021-05-08 06:37] LABS: ABG PCO2 53.4 mmHg (35.0-45.0); ABG PH 7.365 (7.350-7.450); BE(B) 3.1 mmol/L (-2.0-2.0); HCO3act 29.8 mmol/L (22.0-26.0); pO2 48.1 mmHg (80.0-100.0)
[2021-05-08] MEDS: CARAFATE PO SCH ×4 (07:30→21:00)
[2021-05-08] MEDS: LEVOPHED 8 MG in NS 250ML 250 ML IV SCH (08:27)
[2021-05-08] MEDS: COLACE NG SCH ×2 (08:28→21:00)
[2021-05-08] MEDS: LOVENOX SQ SCH ×2 (08:30→20:30)
[2021-05-08] MEDS: PEPCID IV SCH ×2 (08:45→21:00)
[2021-05-08] MEDS: DEXAMETHASONE 10 MG/ML VIAL IV SCH ×2 (08:45→21:00)
--- NOTE | 2021-05-08 10:31 | DIREP ---
PROCEDURE:CHEST 1 VIEW COMPARISON:[facility], CR, XRAY CHEST SINGLE VW, 05/06/2021, 08:23 PM. INDICATIONS:resp failure FINDINGS: LUNGS/PLEURA:There remain extensive mid and lower lung airspace opacities. VASCULATURE:Normal. Unremarkable pulmonary vasculature. CARDIAC:Normal. No cardiac silhouette abnormality or cardiomegaly. MEDIASTINUM:NG tube tip in the body of the stomach. ET tube 7 cm above the arabella. BONES:Normal. No fracture or visible bony lesion. OTHER:Monitor leads in place. Surgical clips right upper quadrant of the abdomen. CONCLUSION: 1. No change in extensive mid and lower lung airspace opacities. 2. ET tube 7 cm above the arabella. This can be advanced 2-4 cm. Dictated by: Jaime Bran M.D. on 05/08/2021 at 10:28 AM
--- NOTE | 2021-05-08 10:34 | PRM.PN ---
Subjective Subjective Date: May 08, 2021 Time: 09:00 Subjective Patient oxygenation continues to worsen. 100% FiO2, high PEEP. Proning. Oxygen saturation around 89%. Review of systems Unable to obtain, intubated sedated. VTE VTE Risk Total Score: 5 VTE Risk Score VTE Risk: Score 0-1 = Low Risk (Aggressive mobilization; early ambulation; no VTE prophylaxis required) Score 2: Moderate Risk (Intermittent/Pneumatic Compression Device OR Lovenox/Heparin/Coumadin) Score 3-4: High Risk (Intermittent/Pneumatic Compression Device AND Lovenox/Heparin/Coumadin) Score > or =5: Highest Risk (Intermittent/Pneumatic Compression Device AND Lovenox/Heparin/Coumadin) Antico:Hep/LMWH/Coum/Xarelto: Yes Mechanical device ordered: Yes Objective Vitals and I/O Vital Sign - Last 24 Hours 05/07/21 05/07/21 05/07/21 05/07/21 10:45 11:00 11:15 11:30 Pulse 58 57 59 56 Resp 15 15 20 20 B/P (MAP) 141/79 (99) 128/75 (92) 128/76 (93) 131/69 (89) Pulse Ox 99 99 98 97 05/07/21 05/07/21 05/07/21 05/07/21 11:45 11:57 12:00 12:00 Pulse 53 56 56 Resp 18 19 20 B/P (MAP) 129/73 (91) 131/80 (97) Pulse Ox 97 97 96 O2 Delivery Mechanical Ventilator O2 Flow Rate 14.00 FiO2 100 05/07/21 05/07/21 05/07/21 05/07/21 12:15 12:30 12:45 13:00 Pulse 55 53 51 51 Resp 22 16 22 24 B/P (MAP) 133/64 (87) 133/76 (95) 129/70 (89) 141/82 (101) Pulse Ox 95 96 96 97 05/07/21 05/07/21 05/07/21 05/07/21 13:15 13:30 13:31 13:38 Pulse 53 61 Resp 25 11 B/P (MAP) 146/78 (100) 143/95 (111) Pulse Ox 97 96 95 93 05/07/21 05/07/21 05/07/21 05/07/21 13:45 14:00 14:15 14:30 Pulse 59 60 59 62 Resp 14 14 11 10 B/P (MAP) 146/87 (106) 132/80 (97) 125/80 (95) 128/80 (96) Pulse Ox 94 94 93 92 05/07/21 05/07/21 05/07/21 05/07/21 14:45 14:47 15:00 15:15 Pulse 57 61 55 51 Resp 19 20 21 21 B/P (MAP) 127/79 (95) 125/73 (90) 127/79 (95) Pulse Ox 89 89 91 89 FiO2 100 05/07/21 05/07/21 05/07/21 05/07/21 15:30 15:45 16:00 16:00 Pulse 53 50 48 Resp 21 20 19 B/P (MAP) 127/84 (98) 128/75 (92) 126/66 (86) Pulse Ox 88 91 91 O2 Delivery Mechanical Ventilator O2 Flow Rate 14.00 05/07/21 05/07/21 05/07/21 05/07/21 16:10 16:15 16:30 16:45 Pulse 49 49 48 46 Resp 19 20 19 19 B/P (MAP) 123/72 (89) 122/70 (87) 119/73 (88) Pulse Ox 92 92 92 93 FiO2 100 05/07/21 05/07/21 05/07/21 05/07/21 18:08 18:08 19:00 19:01 Pulse 46 56 48 Resp 20 31 28 24 B/P (MAP) 127/75 (92) Pulse Ox 92 94 93 92 FiO2 100 05/07/21 05/07/21 05/07/21 05/07/21 19:15 19:22 19:30 19:45 Pulse 61 66 47 49 Resp 27 29 25 20 B/P (MAP) 116/74 (88) 100/62 (75) 129/72 (91) 124/70 (88) Pulse Ox 87 85 89 85 05/07/21 05/07/21 05/07/21 05/07/21 19:54 19:55 20:00 20:12 Pulse 54 46 54 Resp 27 20 27 B/P (MAP) 117/69 (85) 134/92 (106) Pulse Ox 92 91 90 O2 Delivery Mechanical Ventilator O2 Flow Rate FiO2 100 05/07/21 05/07/21 05/07/21 8/11/21 20:15 20:30 20:45 21:00 Pulse 53 48 46 46 Resp 27 25 22 23 B/P (MAP) 132/75 (94) 132/74 (93) 125/81 (96) 117/77 (90) Pulse Ox 90 89 90 89 05/07/21 05/07/21 05/07/21 05/07/21 21:11 21:12 21:15 21:30 Pulse 55 55 47 51 Resp 21 21 23 29 B/P (MAP) 117/73 (88) 115/70 (85) Pulse Ox 96 96 90 85 O2 Delivery Mechanical Ventilator FiO2 100 100 05/07/21 05/07/21 05/07/21 05/07/21 21:45 22:00 22:15 22:30 Pulse 64 65 67 105 Resp 37 35 14 24 B/P (MAP) 126/80 (95) 112/59 (76) 128/77 (94) 127/81 (96) Pulse Ox 83 81 82 89 05/07/21 05/07/21 05/07/21 05/07/21 22:45 22:58 23:00 23:15 Pulse 108 114 116 104 Resp 17 16 17 24 B/P (MAP) 129/73 (91) 127/77 (94) 127/78 (94) 112/65 (81) Pulse Ox 87 88 86 88 05/07/21 05/07/21 05/07/21 05/08/21 23:30 23:45 23:55 00:00 Pulse 118 110 126 Resp 26 26 31 B/P (MAP) 100/67 (78) 111/65 (80) 117/78 (91) Pulse Ox 92 88 83 O2 Delivery Mechanical Ventilator 05/08/21 05/08/21 05/08/21 05/08/21 00:00 00:00 00:11 00:15 Pulse 111 122 110 Resp 28 19 20 B/P (MAP) 110/63 (79) 112/61 (78) Pulse Ox 86 91 82 O2 Delivery Mechanical Ventilator FiO2 100 05/08/21 05/08/21 05/08/21 05/08/21 00:30 00:45 01:00 01:15 Pulse 74 58 54 55 Resp 26 19 18 16 B/P (MAP) 102/56 (71) 109/61 (77) 106/67 (80) 103/59 (74) Pulse Ox 84 91 92 95 05/08/21 05/08/21 05/08/21 05/08/21 01:30 01:45 02:00 02:15 Pulse 54 53 54 53 Resp 16 17 16 16 B/P (MAP) 102/56 (71) 99/61 (74) 106/57 (73) 105/50 (68) Pulse Ox 96 96 94 94 05/08/21 05/08/21 05/08/21 05/08/21 02:30 02:45 03:00 03:06 Pulse 53 52 59 54 Resp 18 18 23 14 B/P (MAP) 104/57 (73) 101/62 (75) 109/61 (77) Pulse Ox 94 94 89 95 FiO2 100 05/08/21 05/08/21 05/08/21 05/08/21 03:15 03:30 03:45 04:00 Pulse 54 53 52 48 Resp 16 18 16 15 B/P (MAP) 101/62 (75) 113/67 (82) 108/65 (79) 108/67 (81) Pulse Ox 87 88 91 92 05/08/21 05/08/21 05/08/21 05/08/21 04:00 04:15 04:30 04:45 Temp 98.2 Pulse 51 79 73 Resp 15 23 21 B/P (MAP) 106/59 (75) 130/71 (90) 101/59 (73) Pulse Ox 92 90 86 O2 Delivery Mechanical Ventilator 05/08/21 05/08/21 05/08/21 05/08/21 04:52 05:00 05:15 05:30 Pulse 80 68 109 100 Resp 22 24 26 30 B/P (MAP) 123/80 (94) 124/78 (93) 119/73 (88) 119/70 (86) Pulse Ox 85 85 82 86 05/08/21 05/08/21 05/08/21 05/08/21 05:45 05:46 05:57 06:00 Pulse 116 112 115 121 Resp 19 18 18 20 B/P (MAP) 116/69 (85) 111/71 (84) Pulse Ox 86 87 91 88 05/08/21 05/08/21 05/08/21 05/08/21 06:09 06:15 07:53 07:53 Pulse 115 119 71 71 Resp 30 23 24 24 B/P (MAP) 108/69 (82) Pulse Ox 88 90 83 83 O2 Delivery Mechanical Ventilator O2 Flow Rate 50.00 FiO2 100 100 100 05/08/21 08:15 Pulse Ox 85 FiO2 100 Intake and Output 05/08/21 07:00 Intake Total 982 ml Output Total 1800 ml Balance -818 ml General: Other (Intubated sedated.) HEENT: Atraumatic, PERRLA, EOMI Neck: Supple Lungs: Other (Coarse bilateral breath sounds, respirations labored) Heart: No murmurs Abdomen: Normal bowel sounds, Soft Extremities: No clubbing, No cyanosis Skin: No rashes, No breakdown Neuro: Other (Intubated sedated.) Psych/Mental Status: Other (Intubated sedated.) All Results(Lab/Rad) Laboratory Tests Test 05/02/21 06:37 05/02/21 08:25 White Blood Count 7.6 10^3/uL Red Blood Count 4.62 10^6/uL Hemoglobin 13.6 g/dL Hematocrit 40.6 % Mean Corpuscular Volume 87.9 fL Mean Corpuscular Hemoglobin 29.4 pg Mean Corpuscular Hemoglobin Concent 33.5 g/dL Red Cell Distribution Width 12.0 % Platelet Count 268 10^3/uL Mean Platelet Volume 10.5 fL Neutrophils (%) (Auto) 82.9 % Lymphocytes (%) (Auto) 11.7 % Monocytes (%) (Auto) 5.4 % Neutrophils # (Auto) 6.3 10^3/uL Lymphocytes # (Auto) 0.89 10^3/uL1 Monocytes # (Auto) 0.4 10^3/uL Absolute Immature Granulocyte (auto 0.12 10^3 u/L Absolute Eosinophils (auto) 0.0 10^3/uL Immature Granulocytes % 1.60 % Eosinophils % 0.0 % Basophils % 0.0 % Basophils # 0.0 10^3/uL Sodium Level 140 mmol/L Potassium Level 4.7 mmol/L Chloride Level 104.0 mmol/L Carbon Dioxide Level 27.6 mmol/L Anion Gap 13.1 Blood Urea Nitrogen 14 mg/dL Creatinine 0.62 mg/dL Estimated GFR () 131.8 Est GFR (CKD-EPI)(Non-Afr [place]) 108.9 BUN/Creatinine Ratio 22.0 Glucose Level 121 mg/dL Calcium Level 8.8 mg/dL Total Bilirubin 0.4 mg/dL Aspartate Amino Transf (AST/SGOT) 26 U/L Alanine Aminotransferase (ALT/SGPT) 37 U/L Alkaline Phosphatase 42 U/L Total Protein 6.7 g/dL Albumin 2.5 g/dL Globulin 4.2 Albumin/Globulin Ratio 0.595 Blood Gas Sample Site RT RADIAL ARTERY Blood Gas pH 7.405 Blood Gas PCO2 41.1 mmHg Blood Gas PO2 82.5 mmHg Blood Gas HCO3 25.2 mmol/L Blood Gas Base Excess 0.4 mmol/L Lucas Test POSITIVE Arterial Blood Oxygen Saturation 95.5 % Deoxyhemoglobin 4.5 % Carboxyhemoglobin 0.6 % Methemoglobin 0.3 % Total Hemoglobin 14.6 % Total Oxygen Concentration 19.5 % Blood Gas Temperature 37 Oxygen Delivery Method (LAB) BIPAP15/7 FiO2 99 % Total Carbon Dioxide 26.4 mmol/L Current Medications Medications (Trade) Dose Ordered Sig/Davon Route PRN Reason Start Time Stop Time Status Last Admin Dose Admin Remdesivir 200 mg/ Sodium Chloride 140 ml @ 120.69 mls/ hr OT STAT IV 04/28/21 19:53 04/29/21 08:10 DC 04/28/21 19:53 Remdesivir 100 mg/ Sodium Chloride 120 ml @ 111.111 mls/hr Q24HRS IV 04/29/21 20:00 05/02/21 21:05 05/01/21 20:50 Famotidine (Pepcid) 20 mg BID PO 04/28/21 21:00 05/28/21 20:59 05/02/21 09:29 Sucralfate (Carafate) 1 gm ACHS PO 04/28/21 21:00 05/28/21 20:59 05/02/21 07:30 Enoxaparin Sodium (Lovenox) 40 mg Q24HRS SQ 04/28/21 20:00 05/28/21 19:59 05/01/21 20:50 Sucralfate (Carafate) 1 gm STK-MED ONCE PO 04/28/21 20:56 04/28/21 20:56 DC Lorazepam (Ativan) 1 mg Q4HR PRN IV ANXIETY 04/29/21 00:00 05/29/21 00:00 04/30/21 22:30 Lorazepam (Ativan) 0.5 mg Q4HR PRN IV ANXIETY 04/29/21 00:00 05/29/21 00:00 Fentanyl Citrate (Sublimaze) 50 mcg STK-MED ONCE .ROUTE 04/29/21 11:37 04/29/21 11:38 DC Fentanyl Citrate (Sublimaze) 12.5 mcg OT ONCE IV 04/29/21 15:00 04/29/21 15:06 DC 04/29/21 13:35 Acetaminophen (Tylenol) 650 mg Q6HR PRN PO PAIN 1 - 3 04/30/21 18:00 05/02/21 18:00 05/01/21 06:28 Dexmedetomidine HCl 200 mcg/ Sodium Chloride 50 ml @ 0 mls/hr IV 05/01/21 10:30 05/01/21 11:28 DC Sodium Chloride 250 ml @ ud STK-MED ONCE .ROUTE 05/01/21 20:40 05/01/21 20:40 DC Assessment/Plan Assessment/Plan Problems: (1) Acute and chronic respiratory failure with hypoxia ICD Code: J96.21 - Acute and chronic respiratory failure with hypoxia SNOMED: 50761623, [id number] (2) Pneumonia due to COVID-19 virus Status: Acute ICD Code: U07.1 - COVID-19; J12.82 - Pneumonia due to coronavirus disease 2019 SNOMED: [id number] Plan Continue full ventilator support. IV dexamethasone, will increase to 10 mg IV twice a day Remdesivir Empiric IV antibiotic for possible bacterial superinfection Consult dietitian for tube feedings GI prophylaxis DVT prophylaxis Lovenox Further critical care management as per telemetry counseling center director Case discussed with SUBSTITUTE TEACHER Case discussed with case management, patient will need transfer to higher level of care for possible ECMO.Oxygenation is worsening in spite of high FiO2 and high PEEP./Proning. Patient presenting with potentially life-threatening condition, critical care time spent reviewing labs, images, examining the patient, discussing the case with SUBSTITUTE TEACHER, and documentation 71 minutes. ALANNA GARCIA MD May 08, 2021 10:34
--- NOTE | 2021-05-08 11:55 | TELE.CONS ---
Consultation History of Present Illness History of Patient Comments The pt reportedly had acute worsning now requiring intubation and prone positioning. Review of Systems Constitutional: Chills, Weakness Eyes: No: Conjunctivae inflammation ENT: No: Nose pain, Nose discharge Respiratory: Cough, Dry, Shortness of breath, SOB with excertion Cardiovascular: No: Chest Pain, Orthopnea Gastrointestinal: Nausea Genitourinary: No Dysuria, No Frequency Musculoskeletal: No: back pain, hand pain Skin: No: Jaundice Neurological: Weakness; No: Numbness, Incoordination Allergies: Coded Allergies: ibuprofen (Verified Allergy, Unknown, 04/29/21) naproxen (Verified Allergy, Unknown, 04/29/21) VITALS REVIEW VITALS Vital Sign - Last 24 Hours 05/08/21 05/08/21 05/08/21 05/08/21 07:53 07:53 08:15 10:13 Pulse 71 71 54 Resp 24 24 19 Pulse Ox 83 83 85 87 O2 Delivery Mechanical Ventilator O2 Flow Rate 50.00 FiO2 100 100 100 100 05/08/21 10:54 Pulse 51 Resp 21 Pulse Ox 87 FiO2 100 LABS LAB RESULTS Laboratory Tests Test 04/29/21 04:35 04/30/21 04:28 05/01/21 04:32 05/01/21 11:20 White Blood Count 6.2 10^3/uL 6.4 10^3/uL 10.2 10^3/uL Red Blood Count 4.64 10^6/uL 4.49 10^6/uL 4.50 10^6/uL Hemoglobin 13.5 g/dL 13.3 g/dL 13.3 g/dL Hematocrit 41.2 % 39.3 % 39.6 % Mean Corpuscular Volume 88.8 fL 87.5 fL 88.0 fL Mean Corpuscular Hemoglobin 29.1 pg 29.6 pg 29.6 pg Mean Corpuscular Hemoglobin Concent 32.8 g/dL 33.8 g/dL 33.6 g/dL Red Cell Distribution Width 12.5 % 12.1 % 12.1 % Platelet Count 162 10^3/uL 195 10^3/uL 234 10^3/uL Mean Platelet Volume 10.9 fL 10.8 fL 10.4 fL Neutrophils (%) (Auto) 72.3 % 70.8 % Lymphocytes (%) (Auto) 19.0 % 20.6 % Monocytes (%) (Auto) 8.4 % 8.4 % Neutrophils # (Auto) 4.5 10^3/uL 4.5 10^3/uL Lymphocytes # (Auto) 1.17 10^3/uL1 1.32 10^3/uL1 Monocytes # (Auto) 0.5 10^3/uL 0.5 10^3/uL Absolute Immature Granulocyte (auto 0.02 10^3 u/L 0.04 10^3 u/L Absolute Eosinophils (auto) 0.0 10^3/uL 0.0 10^3/uL Immature Granulocytes % 0.30 % 0.60 % Eosinophils % 0.0 % 0.0 % Basophils % 0.0 % 0.2 % Basophils # 0.0 10^3/uL 0.0 10^3/uL Sodium Level 141 mmol/L 142 mmol/L 139 mmol/L Potassium Level 4.0 mmol/L 3.9 mmol/L 3.9 mmol/L Chloride Level 106.0 mmol/L 106.0 mmol/L 105.0 mmol/L Carbon Dioxide Level 25.2 mmol/L 26.2 mmol/L 26.8 mmol/L Anion Gap 13.8 13.7 11.1 Blood Urea Nitrogen 12 mg/dL 17 mg/dL 12 mg/dL Creatinine 0.65 mg/dL 0.54 mg/dL 0.56 mg/dL Estimated GFR () 124.8 154.6 148.2 Est GFR (CKD-EPI)(Non-Afr Faroese) 103.1 127.7 122.5 BUN/Creatinine Ratio 18.0 31.0 21.0 Glucose Level 98 mg/dL 92 mg/dL 87 mg/dL Calcium Level 8.6 mg/dL 8.4 mg/dL 8.8 mg/dL Total Bilirubin 0.5 mg/dL 0.5 mg/dL 0.5 mg/dL Aspartate Amino Transf (AST/SGOT) 42 U/L 40 U/L 36 U/L Alanine Aminotransferase (ALT/SGPT) 47 U/L 42 U/L 39 U/L Alkaline Phosphatase 47 U/L 43 U/L 43 U/L Total Protein 6.6 g/dL 6.6 g/dL 6.7 g/dL Albumin 2.6 g/dL 2.5 g/dL 2.5 g/dL Globulin 4.0 4.1 4.2 Albumin/Globulin Ratio 0.650 0.609 0.595 Serum HCG, Qualitative NEGATIVE Blood Gas Sample Site RT RADIAL ARTERY Blood Gas pH 7.459 Blood Gas PCO2 31.9 mmHg Blood Gas PO2 86.7 mmHg Blood Gas HCO3 22.1 mmol/L Blood Gas Base Excess -0.8 mmol/L Lucas Test POSITIVE Arterial Blood Oxygen Saturation 96.2 % Deoxyhemoglobin 3.8 % Carboxyhemoglobin 0.1 % Methemoglobin 0.1 % Total Hemoglobin 14.8 % Total Oxygen Concentration 20.0 % Blood Gas Temperature 37.0 Oxygen Delivery Method (LAB) BIPAP Blood Gas Vent Mode ST FiO2 80 % Total Carbon Dioxide 23.1 mmol/L Test 05/02/21 06:37 05/02/21 08:25 05/03/21 05:20 05/03/21 07:55 White Blood Count 7.6 10^3/uL 12.0 10^3/uL Red Blood Count 4.62 10^6/uL 4.71 10^6/uL Hemoglobin 13.6 g/dL 13.6 g/dL Hematocrit 40.6 % 41.1 % Mean Corpuscular Volume 87.9 fL 87.3 fL Mean Corpuscular Hemoglobin 29.4 pg 28.9 pg Mean Corpuscular Hemoglobin Concent 33.5 g/dL 33.1 g/dL Red Cell Distribution Width 12.0 % 11.9 % Platelet Count 268 10^3/uL 338 10^3/uL Mean Platelet Volume 10.5 fL 10.2 fL Neutrophils (%) (Auto) 82.9 % 83.2 % Lymphocytes (%) (Auto) 11.7 % 10.3 % Monocytes (%) (Auto) 5.4 % 5.1 % Neutrophils # (Auto) 6.3 10^3/uL 10.0 10^3/uL Lymphocytes # (Auto) 0.89 10^3/uL1 1.24 10^3/uL1 Monocytes # (Auto) 0.4 10^3/uL 0.6 10^3/uL Absolute Immature Granulocyte (auto 0.12 10^3 u/L 0.14 10^3 u/L Absolute Eosinophils (auto) 0.0 10^3/uL 0.0 10^3/uL Immature Granulocytes % 1.60 % 1.20 % Eosinophils % 0.0 % 0.1 % Basophils % 0.0 % 0.1 % Basophils # 0.0 10^3/uL 0.0 10^3/uL Sodium Level 140 mmol/L 140 mmol/L Potassium Level 4.7 mmol/L 4.3 mmol/L Chloride Level 104.0 mmol/L 103.0 mmol/L Carbon Dioxide Level 27.6 mmol/L 28.1 mmol/L Anion Gap 13.1 13.2 Blood Urea Nitrogen 14 mg/dL 18 mg/dL Creatinine 0.62 mg/dL 0.65 mg/dL Estimated GFR () 131.8 124.8 Est GFR (CKD-EPI)(Non-Afr Faroese) 108.9 103.1 BUN/Creatinine Ratio 22.0 27.0 Glucose Level 121 mg/dL 107 mg/dL Calcium Level 8.8 mg/dL 8.9 mg/dL Total Bilirubin 0.4 mg/dL 0.6 mg/dL Aspartate Amino Transf (AST/SGOT) 26 U/L 26 U/L Alanine Aminotransferase (ALT/SGPT) 37 U/L 31 U/L Alkaline Phosphatase 42 U/L 41 U/L Total Protein 6.7 g/dL 6.8 g/dL Albumin 2.5 g/dL 2.6 g/dL Globulin 4.2 4.2 Albumin/Globulin Ratio 0.595 0.619 Blood Gas Sample Site RT RADIAL ARTERY LEFT RADIAL ARTERY Blood Gas pH 7.405 7.416 Blood Gas PCO2 41.1 mmHg 37.1 mmHg Blood Gas PO2 82.5 mmHg 149.3 mmHg Blood Gas HCO3 25.2 mmol/L 23.3 mmol/L Blood Gas Base Excess 0.4 mmol/L -0.8 mmol/L Lucas Test POSITIVE POSITIVE Arterial Blood Oxygen Saturation 95.5 % 98.7 % Deoxyhemoglobin 4.5 % 1.3 % Carboxyhemoglobin 0.6 % 0.4 % Methemoglobin 0.3 % 0.5 % Total Hemoglobin 14.6 % 14.5 % Total Oxygen Concentration 19.5 % 20.2 % Blood Gas Temperature 37 37.00 Oxygen Delivery Method (LAB) BIPAP15 BP 15/7 FiO2 99 % 100 % Total Carbon Dioxide 26.4 mmol/L 24.4 mmol/L Blood Gas Vent Mode S/T Test 05/03/21 10:10 05/04/21 10:08 05/05/21 05:08 05/06/21 04:30 D-Dimer 1.21 mg/L 5.32 mg/L Ferritin 697 ng/mL 724 ng/mL Lactate Dehydrogenase 329 U/L White Blood Count 17.0 10^3/uL 14.0 10^3/uL 15.9 10^3/uL Red Blood Count 4.46 10^6/uL 4.70 10^6/uL 4.43 10^6/uL Hemoglobin 12.9 g/dL 13.7 g/dL 13.2 g/dL Hematocrit 38.9 % 41.0 % 39.1 % Mean Corpuscular Volume 87.2 fL 87.2 fL 88.3 fL Mean Corpuscular Hemoglobin 28.9 pg 29.1 pg 29.8 pg Mean Corpuscular Hemoglobin Concent 33.2 g/dL 33.4 g/dL 33.8 g/dL Red Cell Distribution Width 11.8 % 11.9 % 12.0 % Platelet Count 334 10^3/uL 309 10^3/uL 290 10^3/uL Mean Platelet Volume 10.0 fL 9.8 fL 9.8 fL Neutrophils (%) (Auto) 90.6 % 88.5 % 87.7 % Lymphocytes (%) (Auto) 4.4 % 7.5 % 8.3 % Monocytes (%) (Auto) 3.9 % 3.3 % 3.5 % Neutrophils # (Auto) 15.4 10^3/uL 12.3 10^3/uL 13.9 10^3/uL Lymphocytes # (Auto) 0.75 10^3/uL1 1.05 10^3/uL1 1.32 10^3/uL1 Monocytes # (Auto) 0.7 10^3/uL 0.5 10^3/uL 0.6 10^3/uL Absolute Immature Granulocyte (auto 0.16 10^3 u/L 0.19 10^3 u/L 0.16 10^3 u/L Absolute Eosinophils (auto) 0.0 10^3/uL 0.1 10^3/uL 0.1 10^3/uL Immature Granulocytes % 0.90 % 1.40 % 1.00 % Eosinophils % 0.1 % 0.6 % 0.4 % Basophils % 0.1 % 0.1 % 0.1 % Basophils # 0.0 10^3/uL 0.0 10^3/uL 0.0 10^3/uL Sodium Level 135 mmol/L 137 mmol/L 138 mmol/L Potassium Level 3.9 mmol/L 3.6 mmol/L 3.8 mmol/L Chloride Level 102.0 mmol/L 102.0 mmol/L 103.0 mmol/L Carbon Dioxide Level 25.7 mmol/L 26.8 mmol/L 27.1 mmol/L Anion Gap 11.2 11.8 11.7 Blood Urea Nitrogen 20 mg/dL 13 mg/dL 14 mg/dL Creatinine 0.75 mg/dL 0.62 mg/dL 0.66 mg/dL Estimated GFR () 105.8 131.8 122.6 Est GFR (CKD-EPI)(Non-Afr Faroese) 87.4 108.9 101.3 BUN/Creatinine Ratio 26.0 20.0 21.0 Glucose Level 135 mg/dL 86 mg/dL 96 mg/dL Calcium Level 8.8 mg/dL 8.8 mg/dL 8.8 mg/dL Total Bilirubin 0.8 mg/dL 0.8 mg/dL 0.9 mg/dL Aspartate Amino Transf (AST/SGOT) 33 U/L 35 U/L 30 U/L Alanine Aminotransferase (ALT/SGPT) 34 U/L 34 U/L 39 U/L Alkaline Phosphatase 43 U/L 41 U/L 49 U/L Total Protein 6.8 g/dL 6.7 g/dL 6.9 g/dL Albumin 2.5 g/dL 2.4 g/dL 2.4 g/dL Globulin 4.3 4.3 4.5 Albumin/Globulin Ratio 0.581 0.558 0.533 Test 05/06/21 07:27 05/06/21 19:40 05/06/21 21:55 05/07/21 04:13 Blood Gas Sample Site RT BRACIAL ARTERY LEFT RADIAL ARTERY RT RADIAL ARTERY Blood Gas pH 7.452 7.478 7.473 Blood Gas PCO2 35.8 mmHg 40.1 mmHg 36.9 mmHg Blood Gas PO2 45.9 mmHg 54.5 mmHg 38.1 mmHg Blood Gas HCO3 24.4 mmol/L 29.1 mmol/L 26.4 mmol/L Blood Gas Base Excess 0.8 mmol/L 5.2 mmol/L 2.9 mmol/L Lucas Test N/A POSITIVE POSITIVE Arterial Blood Oxygen Saturation 82.3 % 87.3 % 71.2 % Deoxyhemoglobin 17.6 % 12.5 % 28.5 % Carboxyhemoglobin 0.2 % 0.9 % 0.7 % Methemoglobin 0.2 % 0.4 % 0.4 % Total Hemoglobin 13.5 % 13.5 % 13.2 % Total Oxygen Concentration 15.5 % 16.3 % 13.0 % Oxygen Delivery Method (LAB) CF 50LPM BIPAP 15/7 VENT FiO2 100 % 100 % 100 % Total Carbon Dioxide 25.5 mmol/L 30.3 mmol/L 27.6 mmol/L Blood Gas Temperature 37 37 Blood Gas Vent Mode AC Blood Gas Vent Rate 14 Blood Gas Tidal Volume 400 ML Blood Gas PEEP 12 CMH2O White Blood Count 16.3 10^3/uL Red Blood Count 4.35 10^6/uL Hemoglobin 12.8 g/dL Hematocrit 38.4 % Mean Corpuscular Volume 88.3 fL Mean Corpuscular Hemoglobin 29.4 pg Mean Corpuscular Hemoglobin Concent 33.3 g/dL Red Cell Distribution Width 12.0 % Platelet Count 268 10^3/uL Mean Platelet Volume 9.9 fL Neutrophils (%) (Auto) 89.4 % Lymphocytes (%) (Auto) 6.1 % Monocytes (%) (Auto) 4.3 % Neutrophils # (Auto) 14.6 10^3/uL Lymphocytes # (Auto) 0.99 10^3/uL1 Monocytes # (Auto) 0.7 10^3/uL Absolute Immature Granulocyte (auto 0.14 10^3 u/L Absolute Eosinophils (auto) 0.0 10^3/uL Immature Granulocytes % 0.90 % Eosinophils % 0.1 % Basophils % 0.1 % Basophils # 0.0 10^3/uL Sodium Level 141 mmol/L Potassium Level 4.3 mmol/L Chloride Level 105.0 mmol/L Carbon Dioxide Level 29.2 mmol/L Anion Gap 11.1 Blood Urea Nitrogen 15 mg/dL Creatinine 0.68 mg/dL Estimated GFR () 118.5 Est GFR (CKD-EPI)(Non-Afr Faroese) 97.9 BUN/Creatinine Ratio 22.0 Glucose Level 108 mg/dL Calcium Level 9.0 mg/dL Total Bilirubin 0.7 mg/dL Aspartate Amino Transf (AST/SGOT) 27 U/L Alanine Aminotransferase (ALT/SGPT) 39 U/L Alkaline Phosphatase 50 U/L Total Protein 6.8 g/dL Albumin 2.2 g/dL Globulin 4.6 Albumin/Globulin Ratio 0.478 Procalcitonin 0.08 ng/mL Test 05/07/21 05:02 05/07/21 06:35 05/07/21 18:09 05/08/21 00:56 Differential Total Cells Counted 100 #CELLS Segmented Neutrophils 85 % Lymphocytes 12 % Monocytes 3 % Platelet Estimate ADEQUATE Platelet Morphology NORMAL Blood Gas Sample Site RT RADIAL ARTERY Blood Gas pH 7.338 Blood Gas PCO2 48.1 mmHg Blood Gas PO2 51.4 mmHg Blood Gas HCO3 25.3 mmol/L Blood Gas Base Excess -1.0 mmol/L Lucas Test POSITIVE Arterial Blood Oxygen Saturation 82.7 % Deoxyhemoglobin 17.2 % Carboxyhemoglobin 0.4 % Methemoglobin 0.1 % Total Hemoglobin 14.5 % Total Oxygen Concentration 16.7 % Blood Gas Temperature 37 Oxygen Delivery Method (LAB) VENT Blood Gas Vent Mode AC Blood Gas Vent Rate 14 FiO2 100 % Blood Gas Tidal Volume 400 ML Blood Gas PEEP 12 CMH2O Total Carbon Dioxide 26.7 mmol/L Bedside Glucose 157 147 Test 05/08/21 04:28 05/08/21 05:50 White Blood Count 17.7 10^3/uL Red Blood Count 4.52 10^6/uL Hemoglobin 13.2 g/dL Hematocrit 41.6 % Mean Corpuscular Volume 92.0 fL Mean Corpuscular Hemoglobin 29.2 pg Mean Corpuscular Hemoglobin Concent 31.7 g/dL Red Cell Distribution Width 12.5 % Platelet Count 291 10^3/uL Mean Platelet Volume 10.2 fL Neutrophils (%) (Auto) 93.7 % Lymphocytes (%) (Auto) 4.5 % Monocytes (%) (Auto) 1.8 % Neutrophils # (Auto) 16.6 10^3/uL Lymphocytes # (Auto) 0.79 10^3/uL1 Monocytes # (Auto) 0.3 10^3/uL Absolute Immature Granulocyte (auto 0.11 10^3 u/L Absolute Eosinophils (auto) 0.0 10^3/uL Immature Granulocytes % 0.60 % Eosinophils % 0.0 % Basophils % 0.0 % Basophils # 0.0 10^3/uL Sodium Level 147 mmol/L Potassium Level 4.1 mmol/L Chloride Level 109.0 mmol/L Carbon Dioxide Level 30.6 mmol/L Anion Gap 11.5 Blood Urea Nitrogen 18 mg/dL Creatinine 0.65 mg/dL Estimated GFR () 124.8 Est GFR (CKD-EPI)(Non-Afr Faroese) 103.1 BUN/Creatinine Ratio 27.0 Glucose Level 145 mg/dL Calcium Level 9.2 mg/dL Total Bilirubin 0.6 mg/dL Aspartate Amino Transf (AST/SGOT) 41 U/L Alanine Aminotransferase (ALT/SGPT) 68 U/L Alkaline Phosphatase 67 U/L Total Protein 7.1 g/dL Albumin 2.3 g/dL Globulin 4.8 Albumin/Globulin Ratio 0.479 Blood Gas Sample Site LEFT RADIAL ARTERY Blood Gas pH 7.365 Blood Gas PCO2 53.4 mmHg Blood Gas PO2 48.1 mmHg Blood Gas HCO3 29.8 mmol/L Blood Gas Base Excess 3.1 mmol/L Lucas Test POSITIVE Arterial Blood Oxygen Saturation 79.8 % Deoxyhemoglobin 20.0 % Carboxyhemoglobin 0.6 % Methemoglobin 0.4 % Total Hemoglobin 15.4 % Total Oxygen Concentration 17.1 % FiO2 100 % Blood Gas PEEP 12.0 CMH2O Total Carbon Dioxide 31.5 mmol/L Current Medications Medications (Trade) Dose Ordered Sig/Davon Route PRN Reason Start Time Stop Time Status Last Admin Dose Admin Remdesivir 200 mg/ Sodium Chloride 140 ml @ 120.69 mls/ hr OT STAT IV 04/28/21 19:53 04/29/21 08:10 DC 04/28/21 19:53 Remdesivir 100 mg/ Sodium Chloride 120 ml @ 111.111 mls/hr Q24HRS IV 04/29/21 20:00 05/02/21 21:05 DC 05/02/21 20:45 Famotidine (Pepcid) 20 mg BID PO 04/28/21 21:00 05/07/21 09:31 DC 05/06/21 08:14 Sucralfate (Carafate) 1 gm ACHS PO 04/28/21 21:00 05/28/21 20:59 05/07/21 21:00 Enoxaparin Sodium (Lovenox) 40 mg Q24HRS SQ 04/28/21 20:00 05/06/21 08:06 DC 05/05/21 21:00 Sucralfate (Carafate) 1 gm STK-MED ONCE PO 04/28/21 20:56 04/28/21 20:56 DC Lorazepam (Ativan) 1 mg Q4HR PRN IV ANXIETY 04/29/21 00:00 05/29/21 00:00 05/06/21 18:45 Lorazepam (Ativan) 0.5 mg Q4HR PRN IV ANXIETY 04/29/21 00:00 05/06/21 09:00 DC Fentanyl Citrate (Sublimaze) 50 mcg STK-MED ONCE .ROUTE 04/29/21 11:37 04/29/21 11:38 DC Fentanyl Citrate (Sublimaze) 12.5 mcg OT ONCE IV 04/29/21 15:00 04/29/21 15:06 DC 04/29/21 13:35 Acetaminophen (Tylenol) 650 mg Q6HR PRN PO PAIN 1 - 3 04/30/21 18:00 05/02/21 18:00 DC 05/01/21 06:28 Dexmedetomidine HCl 200 mcg/ Sodium Chloride 50 ml @ 0 mls/hr IV 05/01/21 10:30 05/01/21 11:28 DC Sodium Chloride 250 ml @ ud STK-MED ONCE .ROUTE 05/01/21 20:40 05/01/21 20:40 DC Acetaminophen (Tylenol) 650 mg Q6HR PRN PO PAIN 1 - 3 05/02/21 20:30 05/08/21 18:00 05/04/21 21:15 Bisacodyl (Dulcolax Ec Tablet) 5 mg STAT STAT PO 05/03/21 13:45 05/03/21 19:05 DC 05/03/21 14:36 Docusate Sodium (Colace) 100 mg BID PO 05/05/21 09:00 05/07/21 09:30 DC 05/06/21 08:14 Lorazepam (Ativan) 2 mg STK-MED ONCE .ROUTE 05/05/21 02:31 05/05/21 02:31 DC Lorazepam (Ativan) 2 mg STK-MED ONCE .ROUTE 05/05/21 03:46 05/05/21 03:47 DC Furosemide (Lasix) 20 mg OT ONCE IV 05/05/21 11:00 05/05/21 11:01 DC 05/05/21 11:20 Lorazepam (Ativan) 2 mg STK-MED ONCE .ROUTE 05/05/21 20:56 05/05/21 20:56 DC Enoxaparin Sodium (Lovenox) 100 mg Q12H SQ 05/06/21 08:30 06/05/21 08:29 05/08/21 08:30 Furosemide (Lasix) 20 mg STAT STAT IV 05/06/21 08:48 05/06/21 09:00 DC 05/06/21 08:48 Insulin Human Regular (Humulin R) 1 unit STK-MED ONCE .ROUTE 05/06/21 19:13 05/06/21 19:14 DC Propofol (Diprivan) 1,000 mg PRN PRN IV SEDATION 05/06/21 20:30 05/08/21 11:39 DC 05/08/21 04:00 Propofol 100 ml @ ud STK-MED ONCE IV 05/06/21 20:19 05/06/21 20:19 DC Vecuronium [place] (Norcuron) 10 mg STK-MED ONCE .ROUTE 05/06/21 22:24 05/06/21 22:24 DC Vecuronium [place] (Norcuron) 10 mg Q6HR PRN IV SHORTNESS OF BREATH 05/06/21 23:00 05/07/21 00:34 DC Vecuronium [place] (Norcuron) 10 mg Q4 PRN IV SHORTNESS OF BREATH 05/07/21 00:30 05/12/21 00:00 05/07/21 22:01 Vecuronium [place] (Norcuron) 10 mg STK-MED ONCE .ROUTE 05/07/21 00:20 05/07/21 00:34 DC Propofol 100 ml @ ud STK-MED ONCE IV 05/07/21 01:53 05/07/21 01:53 DC Norepinephrine Bitartrate 8 mg/ Sodium Chloride 250 ml @ 0 mls/hr DAILY IV 05/07/21 09:00 06/06/21 08:59 05/07/21 04:36 Fentanyl Citrate (Sublimaze) 100 mcg Q1HR IV 05/07/21 04:00 05/07/21 09:58 DC Piperacillin Sod/ Tazobactam Sod 4.5 gm/Sodium Chloride 100 ml @ 100 mls/hr Q6H IV 05/07/21 04:00 06/06/21 03:59 05/08/21 09:05 Norepinephrine Bitartrate (Levophed) 4 mg STK-MED ONCE .ROUTE 05/07/21 04:38 05/07/21 04:38 DC Sodium Chloride 250 ml @ ud STK-MED ONCE .ROUTE 05/07/21 04:38 05/07/21 04:38 DC Fentanyl Citrate (Sublimaze) 100 mcg Q1HR PRN IV PAIN 7 - 10 05/07/21 06:30 06/06/21 06:29 05/07/21 06:41 Fentanyl Citrate 2000 mcg/Sodium Chloride 200 ml @ 0 mls/hr IV 05/07/21 10:00 05/07/21 17:01 DC 05/07/21 10:30 Famotidine (Pepcid) 20 mg BID IV 05/07/21 09:30 06/06/21 09:29 05/08/21 08:45 Docusate Sodium (Colace) 100 mg BID NG 05/07/21 09:30 06/06/21 09:29 05/07/21 21:00 Propofol (Diprivan) 200 mg STK-MED ONCE IV 05/07/21 08:00 05/07/21 11:57 DC Succinylcholine Chloride (Quelicin) 8 mg STK-MED ONCE IV 05/07/21 08:00 05/07/21 11:57 DC Vecuronium [place] (Norcuron) 10 mg STK-MED ONCE IV 05/07/21 08:00 05/07/21 11:57 DC Propofol 100 ml @ ud STK-MED ONCE IV 05/07/21 14:49 05/07/21 14:50 DC Fentanyl Citrate 5000 mcg/Sodium Chloride 500 ml @ 0 mls/hr IV 05/07/21 18:00 06/06/21 17:59 Propofol 100 ml @ ud STK-MED ONCE IV 05/07/21 19:08 05/07/21 19:08 DC Propofol 100 ml @ ud STK-MED ONCE IV 05/07/21 23:47 05/07/21 23:47 DC Propofol 100 ml @ ud STK-MED ONCE IV 05/08/21 03:45 05/08/21 03:46 DC Propofol 100 ml @ ud STK-MED ONCE IV 05/08/21 07:33 05/08/21 07:34 DC Propofol 100 ml @ ud STK-MED ONCE IV 05/08/21 11:27 05/08/21 11:27 DC Propofol 100 ml @ 0 mls/hr PRN PRN IV SEDATION 05/08/21 12:00 06/07/21 11:59 VTE VTE Risk Total Score: 5 VTE Risk Score VTE Risk: Score 0-1 = Low Risk (Aggressive mobilization; early ambulation; no VTE prophylaxis required) Score 2: Moderate Risk (Intermittent/Pneumatic Compression Device OR Lovenox/Heparin/Coumadin) Score 3-4: High Risk (Intermittent/Pneumatic Compression Device AND Lovenox/Heparin/Coumadin) Score > or =5: Highest Risk (Intermittent/Pneumatic Compression Device AND Lovenox/Heparin/Coumadin) Antico:Hep/LMWH/Coum/Xarelto: Yes Mechanical device ordered: Yes VTE VTE Present on Admission: No Currently receiving anticoagul: Yes VTE Risk Total Score: 5 Antico:Hep/LMWH/Coum/Xarelto: Yes Mechanical device ordered: Yes Assessment/Plan Assessment/Plan Assessment/Plan Plan #1 Neuro: THe pt is intubated and sedated #2 CV: The pt is 2 levo #3 Pulm: Pt has covid PNA now c/b ARDS and acute respiratory failure with hypoxia requiring vent 100% peep 12 as well as prone positioning. WIll change breath type to VC+ Pt received decadron, remdesivir, vit c, thiamine, check CXR, start duonebs, melatonin. #4 GI: COnt TF #5 Renal: Monitor for renal failure, replete lytes #6 ID: Covid + and getting remdesivir #7 Endo: keep FS 150-180 #8 Heme: Tx plats >10k hgb >7, pt at risk for clotting and so will give a/c #9 PPx: lovenox and PPI I discussed pt with EDITORIAL SPECIALIST and completed the video assessment with assistance from the EDITORIAL SPECIALIST. I spent a total of greater than 60 minutes formulating critical care for this patient today. I saw this patient and completed a full visual exam via audio-visual HIPAA compliant technology. MYRIAM WILKINS MD May 08, 2021 11:55
--- NOTE | 2021-05-08 18:45 | NUR ---
REPORT RECEIVED FROM SIGRID AMBRIZ RN. ASSUMED PT CARE.
--- NOTE | 2021-05-08 20:00 | NUR ---
RASS SEDATION SCALE -2 PT BRIEFLY AWAKENS WITH EYE CONTACT TO VOICE PT IS ON PROPOFOL GTT @ 50MCG/KG/MIN
--- NOTE | 2021-05-08 20:27 | NUR ---
NEW BOTTLE OF PROPOFOL IV HUNG
--- NOTE | 2021-05-08 21:55 | NUR ---
DR MONDRAGON NOTIFIED OF RECTAL TEMP OF 101.3F. TELEPHONE ORDER PER MD: 1 - BLOOD CULTURE 2 - UA 3 - ENDOTRACHEAL C&S 4 - PROCALCITONIN LAB TO BE DRAWN IN THE MORNING 5 - TYLENOL SUPPOSITORY 650MG Q 6HRS PRN ALL TELEPHONE ORDERS RBAV.
[2021-05-08] MEDS: TYLENOL RC PRN (22:15)
[2021-05-09] VITALS (91 sets, daily range): BP systolic 95–134; BP diastolic 48–94
--- NOTE | 2021-05-09 | NUR ---
RASS SEDATION SCALE -2 PT BRIEFLY AWAKENS WITH EYE CONTACT TO VOICE PT IS ON PROPOFOL GTT @ 50MCG/KG/MIN
[2021-05-09] MEDS: PRECEDEX 400 MCG/100 ML INJECT 100 ML IV SCH ×2 (00:40→22:54)
[2021-05-09] MEDS: ZOSYN 4.5 GM 4.5 GM in NS 100ML 100 ML IV SCH ×4 (03:32→20:59)
--- NOTE | 2021-05-09 04:00 | NUR ---
RASS SEDATION SCALE -2 PT BRIEFLY AWAKENS WITH EYE CONTACT TO VOICE PT IS ON PROPOFOL GTT @ 50MCG/KG/MIN
[2021-05-09 04:50] LABS: LYMPHOCYTES # 0.92 10^3/uL1 (1.0-4.8); LYMPHOCYTES % 4.1 % (24.0-44.0); MEAN CORP HGB 29.6 pg (26-34); MONOCYTES # 0.8 10^3/uL (0.3-0.8); MONOCYTES % 3.3 % (5.0-12.0); NEUTROPHIL # 20.8 10^3/uL (1.8-7.7); NEUTROPHILS % 92.6 % (41.0-85.0); PLATELET COUNT 330 10^3/uL (150-400); RED CELL DISTRIBUTION WIDTH 12.6 % (11.5-14.5)
[2021-05-09 05:18] LABS: CALCIUM 8.6 mg/dL (8.4-10.5); CARBON DIOXIDE 30.9 mmol/L (20.0-32)
--- NOTE | 2021-05-09 07:15 | NUR ---
REPORT TO ONCOMING SHIFT. PT CARE RELINQUISHED.
[2021-05-09] MEDS: CARAFATE PO SCH ×4 (07:30→20:50)
[2021-05-09 07:44] LABS: ABG PCO2 48.3 mmHg (35.0-45.0); ABG PH 7.387 (7.350-7.450); BE(B) 2.6 mmol/L (-2.0-2.0); HCO3act 28.4 mmol/L (22.0-26.0)
--- NOTE | 2021-05-09 08:26 | DIREP ---
PROCEDURE:CHEST 1 VIEW COMPARISON:[facility], CR, XRAY CHEST SINGLE VW, 05/08/2021, 07:07 AM. [facility], CR, XRAY CHEST SINGLE VW, 05/06/2021, 07:40 PM. [facility], CR, XRAY CHEST SINGLE VW, 05/01/2021, 10:49 AM. INDICATIONS:resp failure FINDINGS: LUNGS/PLEURA:ET tube overlying the trachea with tip projecting 7.6 cm above the level of the arabella. There is a stable distribution multifocal patchy opacities in the bilateral lungs. The costophrenic angles are sharp. No pneumothorax. VASCULATURE:Normal. Unremarkable pulmonary vasculature. CARDIAC:Stable in size and morphology. MEDIASTINUM:Midline in position. BONES:Stable. OTHER:Negative. CONCLUSION: ET tube terminates 7.6 cm above the level of the arabella. Stable distribution of multifocal patchy opacities in the bilateral lungs. Dictated by: Fabrice Tan MD on 05/09/2021 at 08:23 AM
[2021-05-09] MEDS: LOVENOX SQ SCH ×2 (08:30→20:48)
[2021-05-09] MEDS: COLACE NG SCH ×2 (09:00→20:49)
[2021-05-09] MEDS: DEXAMETHASONE 10 MG/ML VIAL IV SCH ×2 (09:00→20:49)
[2021-05-09] MEDS: LEVOPHED 8 MG in NS 250ML 250 ML IV SCH (09:00)
[2021-05-09] MEDS: PEPCID IV SCH ×2 (09:00→20:49)
--- NOTE | 2021-05-09 13:19 | NUR ---
[facility] FOR [facility]O WAIT LIST BULL CONTACTED [facility] TO GET PATIENT ADDED TO WAIT LIST. PER SONJA WITH [facility] @[phone] SHE WILL FAX A FORM TO [phone] ICU AND IT WILL NEED TO BE FILLED OUT AND APPROVED BEFORE THEY WILL ADD PATIENT TO WAIT LIST. BULL FAXED FACE SHEET TO [phone]. BULL NOTIFIED DHENSON IN ICU OF STATUS REGARDING ECMO AND WAIT LIST WITH [facility].
--- NOTE | 2021-05-09 13:38 | PRM.PN ---
Subjective Subjective Date: May 09, 2021 Time: 09:00 Subjective Remains sedated, intubated. Still requiring high FiO2, high PEEP. Had a low- grade fever. Septic work-up including blood cultures, UA, endotracheal secretions sent for culture and sensitivity. Patient is on IV Zosyn. Procalcitonin level on the 0.06. Still awaiting transfer to higher level of care for possible ECMO. Review of systems Unable to obtain, intubated sedated. VTE VTE Risk Total Score: 5 VTE Risk Score VTE Risk: Score 0-1 = Low Risk (Aggressive mobilization; early ambulation; no VTE prophylaxis required) Score 2: Moderate Risk (Intermittent/Pneumatic Compression Device OR Lovenox/Heparin/Coumadin) Score 3-4: High Risk (Intermittent/Pneumatic Compression Device AND Lovenox/Heparin/Coumadin) Score > or =5: Highest Risk (Intermittent/Pneumatic Compression Device AND Lovenox/Heparin/Coumadin) Antico:Hep/LMWH/Coum/Xarelto: Yes Mechanical device ordered: Yes Objective Vitals and I/O Vital Sign - Last 24 Hours 05/08/21 05/08/21 05/08/21 05/08/21 13:35 13:40 13:45 13:50 Pulse 47 51 49 51 Resp 13 12 14 14 B/P (MAP) 112/58 (76) 112/62 (79) 115/63 (80) 117/62 (80) Pulse Ox 92 91 91 90 05/08/21 05/08/21 05/08/21 05/08/21 13:55 14:00 14:15 14:20 Pulse 51 51 50 50 Resp 13 14 11 10 B/P (MAP) 105/66 (79) 110/60 (77) 108/60 (76) 106/60 (75) Pulse Ox 92 91 92 92 05/08/21 05/08/21 05/08/21 05/08/21 14:25 14:30 14:35 14:35 Pulse 50 51 49 50 Resp 14 14 19 19 B/P (MAP) 106/60 (75) 110/58 (75) 113/65 (81) Pulse Ox 91 91 90 90 FiO2 100 05/08/21 05/08/21 05/08/21 05/08/21 14:40 14:45 14:50 14:55 Pulse 50 50 51 51 Resp 14 14 13 10 B/P (MAP) 110/64 (79) 111/57 (75) 109/61 (77) 109/63 (78) Pulse Ox 92 91 92 92 05/08/21 05/08/21 05/08/21 05/08/21 15:00 15:05 15:10 15:12 Pulse 48 52 50 50 Resp 14 11 15 19 B/P (MAP) 111/56 (74) 107/59 (75) 116/63 (80) Pulse Ox 91 92 91 90 O2 Delivery Mechanical Ventilator FiO2 100 05/08/21 05/08/21 05/08/21 05/08/21 15:15 15:20 15:25 15:30 Pulse 52 50 48 48 Resp 14 14 15 13 B/P (MAP) 114/61 (78) 112/62 (79) 107/59 (75) 110/66 (81) Pulse Ox 91 91 90 90 05/08/21 05/08/21 05/08/21 05/08/21 15:35 15:40 16:00 16:25 Pulse 50 49 50 Resp 13 13 14 B/P (MAP) 112/61 (78) 114/64 (81) 111/55 (73) Pulse Ox 91 91 92 O2 Delivery Mechanical Ventilator 05/08/21 05/08/21 05/08/21 05/08/21 16:30 16:30 16:35 16:40 Pulse 51 52 48 51 Resp 13 18 14 15 B/P (MAP) 104/58 (73) 109/61 (77) 110/56 (74) Pulse Ox 91 90 92 90 FiO2 100 05/08/21 05/08/21 05/08/21 05/08/21 16:45 16:50 16:55 17:00 Pulse 50 50 49 50 Resp 16 14 13 16 B/P (MAP) 109/60 (76) 113/58 (76) 110/65 (80) 113/61 (78) Pulse Ox 91 91 92 92 05/08/21 05/08/21 05/08/21 05/08/21 17:05 17:10 17:15 17:20 Pulse 48 51 49 50 Resp 16 13 14 14 B/P (MAP) 112/62 (79) 106/54 (71) 108/64 (79) 110/65 (80) Pulse Ox 90 92 92 91 05/08/21 05/08/21 05/08/21 05/08/21 17:25 17:30 17:35 17:40 Pulse 50 52 56 52 Resp 12 15 16 15 B/P (MAP) 109/55 (73) 96/51 (66) 99/51 (67) 104/52 (69) Pulse Ox 92 90 89 89 05/08/21 05/08/21 05/08/21 05/08/21 17:45 17:50 17:55 18:00 Pulse 52 49 48 48 Resp 13 13 13 13 B/P (MAP) 100/55 (70) 108/64 (79) 115/60 (78) 111/59 (76) Pulse Ox 89 90 90 92 05/08/21 05/08/21 05/08/21 05/08/21 18:08 18:30 18:45 19:00 Pulse 48 48 49 49 Resp 21 13 14 17 B/P (MAP) 113/64 (80) 110/62 (78) 112/59 (76) Pulse Ox 91 91 89 89 FiO2 100 05/08/21 05/08/21 05/08/21 05/08/21 19:15 19:30 19:45 19:59 Temp 101.3 Pulse 52 47 51 47 Resp 15 16 15 14 B/P (MAP) 108/57 (74) 113/66 (82) 110/57 (74) Pulse Ox 90 89 90 90 05/08/21 05/08/21 05/08/21 05/08/21 20:15 20:30 20:40 20:45 Temp 101.5 101.3 101.3 Pulse 58 58 55 57 Resp 14 14 13 14 B/P (MAP) 103/47 (65) 106/47 (66) 99/48 (65) Pulse Ox 87 85 89 88 FiO2 100 05/08/21 05/08/21 05/08/21 05/08/21 21:00 21:15 21:21 21:21 Temp 101.3 101.3 Pulse 52 50 48 Resp 14 14 12 B/P (MAP) 114/51 (72) Pulse Ox 84 89 88 O2 Delivery Mechanical Ventilator FiO2 100 05/08/21 05/08/21 05/08/21 05/08/21 21:30 21:45 22:00 22:10 Temp 101.5 101.5 101.5 Pulse 50 49 49 48 Resp 14 14 14 17 Pulse Ox 89 89 88 90 FiO2 100 05/08/21 05/08/21 05/08/21 05/08/21 22:15 22:25 22:30 22:45 Temp 101.5 101.5 101.5 100.9 Pulse 48 55 54 48 Resp 14 14 14 14 B/P (MAP) 124/69 (87) 126/66 (86) 116/59 (78) Pulse Ox 87 86 85 84 05/08/21 05/08/21 05/08/21 05/08/21 23:00 23:15 23:30 23:45 Temp 101.1 101.3 101.3 101.3 Pulse 48 47 46 47 Resp 14 14 14 14 B/P (MAP) 119/65 (83) 121/68 (85) 127/71 (89) 122/59 (80) Pulse Ox 86 87 88 88 05/09/21 05/09/21 05/09/21 05/09/21 00:00 00:05 00:15 00:30 Temp 101.3 101.3 101.3 Pulse 48 50 48 47 Resp 14 17 14 14 B/P (MAP) 126/67 (86) 122/65 (84) 121/68 (85) Pulse Ox 88 90 87 88 FiO2 100 05/09/21 05/09/21 05/09/21 05/09/21 00:36 00:36 00:45 01:00 Temp 101.3 101.3 Pulse 47 48 52 Resp 14 14 14 B/P (MAP) 109/64 (79) 113/61 (78) Pulse Ox 89 90 89 O2 Delivery Mechanical Ventilator FiO2 100 05/09/21 05/09/21 05/09/21 05/09/21 01:15 01:30 01:45 02:00 Temp 101.3 101.3 101.5 101.3 Pulse 52 48 49 52 Resp 14 14 14 14 B/P (MAP) 117/60 (79) 122/69 (86) 118/64 (82) 124/70 (88) Pulse Ox 88 89 88 87 05/09/21 05/09/21 05/09/21 05/09/21 02:15 02:30 02:40 02:45 Temp 101.5 101.5 101.3 Pulse 49 48 49 52 Resp 14 14 16 14 B/P (MAP) 124/62 (82) 115/60 (78) 116/60 (78) Pulse Ox 88 88 90 88 FiO2 100 05/09/21 05/09/21 05/09/21 05/09/21 03:00 03:30 03:45 04:00 Temp 101.3 101.1 101.1 101.0 Pulse 63 48 46 45 Resp 14 14 Pulse Ox 87 91 93 92 05/09/21 05/09/21 05/09/21 05/09/21 04:15 04:22 04:24 04:30 Temp 101.0 101.0 101.0 Pulse 45 53 43 47 Resp 16 B/P (MAP) 111/67 (82) 117/66 (83) Pulse Ox 92 94 93 94 FiO2 100 05/09/21 05/09/21 05/09/21 05/09/21 04:34 04:34 04:45 05:00 Temp 101.0 100.9 Pulse 45 Resp 12 B/P (MAP) 125/71 (89) 116/69 (85) Pulse Ox 92 93 95 O2 Delivery Mechanical Ventilator FiO2 100 05/09/21 05/09/21 05/09/21 05/09/21 05:15 05:30 05:45 06:00 Temp 99.0 99.6 99.9 99.9 Pulse 44 Resp 14 14 B/P (MAP) 118/54 (75) 120/65 (83) 121/73 (89) 120/65 (83) Pulse Ox 95 94 95 94 05/09/21 05/09/21 05/09/21 06:09 06:15 06:30 Temp 99.8 99.8 Pulse 42 44 43 Resp 16 14 14 B/P (MAP) 113/60 (77) 122/75 (91) Pulse Ox 94 93 94 FiO2 100 General: Other (Intubated sedated.) HEENT: Atraumatic, PERRLA, EOMI Neck: Supple Lungs: Other (Coarse bilateral breath sounds, respirations labored) Heart: No murmurs Abdomen: Normal bowel sounds, Soft Extremities: No clubbing, No cyanosis Skin: No rashes, No breakdown Neuro: Other (Intubated sedated.) Psych/Mental Status: Other (Intubated sedated.) All Results(Lab/Rad) Laboratory Tests Test 05/02/21 06:37 05/02/21 08:25 White Blood Count 7.6 10^3/uL Red Blood Count 4.62 10^6/uL Hemoglobin 13.6 g/dL Hematocrit 40.6 % Mean Corpuscular Volume 87.9 fL Mean Corpuscular Hemoglobin 29.4 pg Mean Corpuscular Hemoglobin Concent 33.5 g/dL Red Cell Distribution Width 12.0 % Platelet Count 268 10^3/uL Mean Platelet Volume 10.5 fL Neutrophils (%) (Auto) 82.9 % Lymphocytes (%) (Auto) 11.7 % Monocytes (%) (Auto) 5.4 % Neutrophils # (Auto) 6.3 10^3/uL Lymphocytes # (Auto) 0.89 10^3/uL1 Monocytes # (Auto) 0.4 10^3/uL Absolute Immature Granulocyte (auto 0.12 10^3 u/L Absolute Eosinophils (auto) 0.0 10^3/uL Immature Granulocytes % 1.60 % Eosinophils % 0.0 % Basophils % 0.0 % Basophils # 0.0 10^3/uL Sodium Level 140 mmol/L Potassium Level 4.7 mmol/L Chloride Level 104.0 mmol/L Carbon Dioxide Level 27.6 mmol/L Anion Gap 13.1 Blood Urea Nitrogen 14 mg/dL Creatinine 0.62 mg/dL Estimated GFR () 131.8 Est GFR (CKD-EPI)(Non-Afr [place]) 108.9 BUN/Creatinine Ratio 22.0 Glucose Level 121 mg/dL Calcium Level 8.8 mg/dL Total Bilirubin 0.4 mg/dL Aspartate Amino Transf (AST/SGOT) 26 U/L Alanine Aminotransferase (ALT/SGPT) 37 U/L Alkaline Phosphatase 42 U/L Total Protein 6.7 g/dL Albumin 2.5 g/dL Globulin 4.2 Albumin/Globulin Ratio 0.595 Blood Gas Sample Site RT RADIAL ARTERY Blood Gas pH 7.405 Blood Gas PCO2 41.1 mmHg Blood Gas PO2 82.5 mmHg Blood Gas HCO3 25.2 mmol/L Blood Gas Base Excess 0.4 mmol/L Lucas Test POSITIVE Arterial Blood Oxygen Saturation 95.5 % Deoxyhemoglobin 4.5 % Carboxyhemoglobin 0.6 % Methemoglobin 0.3 % Total Hemoglobin 14.6 % Total Oxygen Concentration 19.5 % Blood Gas Temperature 37 Oxygen Delivery Method (LAB) [id number]/7 FiO2 99 % Total Carbon Dioxide 26.4 mmol/L Current Medications Medications (Trade) Dose Ordered Sig/Davon Route PRN Reason Start Time Stop Time Status Last Admin Dose Admin Remdesivir 200 mg/ Sodium Chloride 140 ml @ 120.69 mls/ hr OT STAT IV 04/28/21 19:53 04/29/21 08:10 DC 04/28/21 19:53 Remdesivir 100 mg/ Sodium Chloride 120 ml @ 111.111 mls/hr Q24HRS IV 04/29/21 20:00 05/02/21 21:05 05/01/21 20:50 Famotidine (Pepcid) 20 mg BID PO 04/28/21 21:00 05/28/21 20:59 05/02/21 09:29 Sucralfate (Carafate) 1 gm ACHS PO 04/28/21 21:00 05/28/21 20:59 05/02/21 07:30 Enoxaparin Sodium (Lovenox) 40 mg Q24HRS SQ 04/28/21 20:00 05/28/21 19:59 05/01/21 20:50 Sucralfate (Carafate) 1 gm STK-MED ONCE PO 04/28/21 20:56 04/28/21 20:56 DC Lorazepam (Ativan) 1 mg Q4HR PRN IV ANXIETY 04/29/21 00:00 05/29/21 00:00 04/30/21 22:30 Lorazepam (Ativan) 0.5 mg Q4HR PRN IV ANXIETY 04/29/21 00:00 05/29/21 00:00 Fentanyl Citrate (Sublimaze) 50 mcg STK-MED ONCE .ROUTE 04/29/21 11:37 04/29/21 11:38 DC Fentanyl Citrate (Sublimaze) 12.5 mcg OT ONCE IV 04/29/21 15:00 04/29/21 15:06 DC 04/29/21 13:35 Acetaminophen (Tylenol) 650 mg Q6HR PRN PO PAIN 1 - 3 04/30/21 18:00 05/02/21 18:00 05/01/21 06:28 Dexmedetomidine HCl 200 mcg/ Sodium Chloride 50 ml @ 0 mls/hr IV 05/01/21 10:30 05/01/21 11:28 DC Sodium Chloride 250 ml @ ud STK-MED ONCE .ROUTE 05/01/21 20:40 05/01/21 20:40 DC Assessment/Plan Assessment/Plan Problems: (1) Acute and chronic respiratory failure with hypoxia ICD Code: J96.21 - Acute and chronic respiratory failure with hypoxia SNOMED: 06811579, [id number] (2) Pneumonia due to COVID-19 virus Status: Acute ICD Code: U07.1 - COVID-19; J12.82 - Pneumonia due to coronavirus disease 2019 SNOMED: [id number] Plan Telemetry legal examiner, assessment and recommendation,: #1 Neuro: THe pt is intubated and sedated #2 CV: The pt is 2 levo #3 Pulm: Pt has covid PNA now c/b ARDS and acute respiratory failure with hypoxia requiring vent 100% peep 12 as well as prone positioning. WIll change breath type to VC+ Pt received decadron, remdesivir, vit c, thiamine, check CXR, start duonebs, melatonin. #4 GI: COnt TF #5 Renal: Monitor for renal failure, replete lytes #6 ID: Covid + and getting remdesivir #7 Endo: keep FS 150-180 #8 Heme: Tx plats >10k hgb >7, pt at risk for clotting and so will give a/c #9 PPx: lovenox and PPI. Continue full ventilator support Septic work-up done for low-grade fever, procalcitonin level remains low. Received remdesivir, Dexamethasone GI and DVT prophylaxis Remains sedated, intubated. Still requiring high FiO2, high PEEP. Had a low- grade fever. Septic work-up including blood cultures, UA, endotracheal secretions sent for culture and sensitivity. Patient is on IV Zosyn. Procalcitonin level on the 0.06. Still awaiting transfer to higher level of care for possible ECMO. Patient presenting with potentially life-threatening condition.Critical care time spent examining the patient, reviewing labs, imaging, discussing the case with PRIMER PRESS OPERATOR, documentation 65 minutes. ALANNA GARCIA MD May 09, 2021 13:38
[2021-05-09] MEDS ORDERED: NS IV ONE (14:30)
[2021-05-09] MEDS ORDERED: VERSED IV ONE (14:30)
--- NOTE | 2021-05-09 17:19 | TELE.CONS ---
VITALS REVIEW VITALS Vital Sign - Last 24 Hours 05/09/21 05/09/21 05/09/21 05/09/21 07:15 08:00 09:00 09:15 Pulse 48 48 45 Resp 21 16 19 Pulse Ox 91 91 96 O2 Delivery Mechanical Ventilator Mechanical Ventilator FiO2 100 100 05/09/21 05/09/21 05/09/21 05/09/21 11:15 12:00 13:15 16:00 Pulse 51 58 Resp 19 19 Pulse Ox 93 94 O2 Delivery Mechanical Ventilator Mechanical Ventilator FiO2 100 100 Assessment/Plan Assessment/Plan Assessment/Plan This is a 35-year-old woman admitted with Covid pneumonia and ARDS. Overnight, the patient was in prone position until 3 AM. Also, the patient was sedated with fentanyl, propofol, and dexmedetomidine. Dexmedetomidine use was limited by heart rate, which dropped to the 40s. She is on a small amount of norepinephrine (2 mcg/min). Despite this, the patient is still awake, uncomfortable, and breathing above the vent at a rate of 25 (set rate is 14). On camera, the patient is seen moving purposefully, at times looks uncomfortable, but does not appear agitated. Ventilator is set to 14/320/100%/12. Blood gas on that was 7.38/48/57. EMR data was reviewed. WBC increasing to 22. BUN 18, creatinine 0.65. Fingersticks have been 130s to 150s. Sputum culture from 05/08 is still pending. Chest x-ray shows the ET tube terminating about 7.6 cm above the arabella. Diagnosis: Covid pneumonia/ARDS Plan: Covid specific therapies: Dexamethasone, remdesivir course completed. Patient is on Zosyn empirically. ET tube does look a little high on chest x-ray. If there are any issues with cuff leak, can reevaluate with repeat chest x-ray for advancement to a 2 to 3 cm. Respiratory rate was increased to 22. For right now this will not change her minute ventilation because she is breathing above the ventilator. However, an order for Versed drip was placed to facilitate ventilator synchrony and to decrease oxygen consumption from work of breathing. Can discontinue dexmedetomidine. Repeat ABG when Versed drip has been adequately titrated up. Check triglycerides daily because of high dose of propofol. On enoxaparin for DVT prophylaxis -On famotidine for stress ulcer prophylaxis Per the medicine team, the patient has been added to waitlist for transfer to facility where she can have an evaluation for ECMO. Plan reviewed with bedside team. Patient seen through remote audiovisual assessment through HIPAA compliant setup. All labs, flowsheets, and images reviewed Cumulative nonprocedural critical care time spent in directed patient care = 60min CARLOS GOODMAN MD May 09, 2021 17:19
--- NOTE | 2021-05-09 18:50 | NUR ---
REPORT RECEIVED FROM SIGRID AMBRIZ RN. ASSUMED PT CARE.
--- NOTE | 2021-05-09 20:00 | NUR ---
RASS SEDATION SCALE -2 PT BRIEFLY AWAKENS WITH EYE CONTACT TO VOICE PT IS ON PROPOFOL GTT @ 50MCG/KG/MIN
--- NOTE | 2021-05-09 20:00 | NUR ---
DR MONDRAGON NOTIFIED OF PT ELEVATED HR IN THE 150'S RT AT BEDSIDE FOR EKG. PT IS SINUS TACH 125. PT IS ANXIOUS AND AWAKE ON VENT. WHEN ASKED IF PT WAS EXPERIENCING PAIN, PT GAVE THUMBS UP SIGN. NOTIFIED. TELEPHONE ORDER GIVEN FOR DILAUDID 0.5MG IV Q4HR PRN NEEDED IF BP IS STABLE. TELEPHONE ORDER ALSO GIVEN TO RESTART PRECEDEX DRIP. ALL TELEPHONE ORDERS RBAV.
[2021-05-09] MEDS ORDERED: DILAUDID ONE (20:10)
[2021-05-09 20:17] LABS: ABG PCO2 46.7 mmHg (35.0-45.0); ABG PH 7.426 (7.350-7.450); BE(B) 4.8 mmol/L (-2.0-2.0); pO2 49.5 mmHg (80.0-100.0)
--- NOTE | 2021-05-09 20:30 | NUR ---
DR HOLGER ALARCON UPDATED ON NEW ORDERS PER DR MONDRAGON. NO NEW ORDERS.
[2021-05-09] MEDS: DILAUDID IV PRN (20:33)
[2021-05-09] MEDS ORDERED: NS 100ML 100 ML IV ONE (21:13)
[2021-05-10] VITALS (86 sets, daily range): BP systolic 76–145; BP diastolic 27–82
--- NOTE | 2021-05-10 | NUR ---
RASS SEDATION SCALE -2 PT BRIEFLY AWAKENS WITH EYE CONTACT TO VOICE PT IS ON PROPOFOL GTT @ 50MCG/KG/MIN
[2021-05-10] MEDS: ZOSYN 4.5 GM 4.5 GM in NS 100ML 100 ML IV SCH ×4 (03:24→21:06)
--- NOTE | 2021-05-10 04:30 | NUR ---
RASS SEDATION SCALE -2 PT BRIEFLY AWAKENS WITH EYE CONTACT TO VOICE PT IS ON PROPOFOL GTT @ 50MCG/KG/MIN
[2021-05-10 05:34] LABS: LYMPHOCYTES # 0.65 10^3/uL1 (1.0-4.8); LYMPHOCYTES % 4.7 % (24.0-44.0); MEAN CORP HGB 29.5 pg (26-34); MONOCYTES # 0.3 10^3/uL (0.3-0.8); MONOCYTES % 2.3 % (5.0-12.0); PLATELET COUNT 201 10^3/uL (150-400); RED CELL DISTRIBUTION WIDTH 12.4 % (11.5-14.5)
[2021-05-10 05:37] LABS: ABG PCO2 56.9 mmHg (35.0-45.0); ABG PH 7.365 (7.350-7.450); HCO3act 31.8 mmol/L (22.0-26.0)
[2021-05-10 05:51] LABS: CALCIUM 8.7 mg/dL (8.4-10.5); CARBON DIOXIDE 31.5 mmol/L (20.0-32)
[2021-05-10 06:07] LABS: LYMPHOCYTE 1 % (25-36); MONOCYTE 1 % (3-9); SEGMENTED NEUTROPHILS 98 % (31-76)
--- NOTE | 2021-05-10 06:45 | NUR ---
REPORT TO ONCOMING SHIFT. PT CARE RELINQUISHED.
[2021-05-10] MEDS: CARAFATE PO SCH ×4 (07:30→20:46)
--- NOTE | 2021-05-10 07:45 | DIREP ---
PROCEDURE:CHEST 1 VIEW COMPARISON:[facility], CR, XRAY CHEST SINGLE VW, 05/09/2021, 07:11 AM. INDICATIONS:resp failure FINDINGS: LUNGS/PLEURA:No change in bilateral airspace opacities. VASCULATURE:Normal. Unremarkable pulmonary vasculature. CARDIAC:Normal. No cardiac silhouette abnormality or cardiomegaly. MEDIASTINUM:Endotracheal tube 6 cm above the arabella. NG tube extending into the abdomen. BONES:Normal. No fracture or visible bony lesion. OTHER:Monitor leads in place. CONCLUSION:No change in bilateral airspace opacities. Dictated by: Jaime Bran M.D. on 05/10/2021 at 07:43 AM
[2021-05-10] MEDS: LOVENOX SQ SCH ×2 (09:00→20:30)
[2021-05-10] MEDS: DEXAMETHASONE 10 MG/ML VIAL IV SCH ×2 (09:00→20:46)
[2021-05-10] MEDS: COLACE NG SCH ×2 (09:00→20:46)
[2021-05-10] MEDS: PEPCID IV SCH ×2 (09:00→20:46)
[2021-05-10] MEDS ORDERED: NS IV ONE (10:00)
[2021-05-10] MEDS ORDERED: VERSED IV ONE (10:00)
--- NOTE | 2021-05-10 10:19 | PRM.PN ---
Subjective Subjective Date: May 10, 2021 Time: 09:00 Subjective Remains intubated, sedated. Still requiring high FiO2, high PEEP. Review of systems Unable to obtain patient is intubated sedated. VTE VTE Risk Total Score: 5 VTE Risk Score VTE Risk: Score 0-1 = Low Risk (Aggressive mobilization; early ambulation; no VTE prophylaxis required) Score 2: Moderate Risk (Intermittent/Pneumatic Compression Device OR Lovenox/Heparin/Coumadin) Score 3-4: High Risk (Intermittent/Pneumatic Compression Device AND Lovenox/Heparin/Coumadin) Score > or =5: Highest Risk (Intermittent/Pneumatic Compression Device AND Lovenox/Heparin/Coumadin) Antico:Hep/LMWH/Coum/Xarelto: Yes Mechanical device ordered: Yes Objective Vitals and I/O Vital Sign - Last 24 Hours 05/09/21 05/09/21 05/09/21 05/09/21 10:15 10:30 10:45 11:00 Temp 99.5 99.5 99.5 99.5 Pulse 48 46 48 56 B/P (MAP) 117/64 (81) 116/62 (80) 123/72 (89) 127/76 (93) Pulse Ox 95 95 95 94 05/09/21 05/09/21 05/09/21 05/09/21 11:15 11:15 11:30 11:45 Temp 99.7 99.5 99.7 Pulse 66 51 46 47 Resp 19 B/P (MAP) 129/78 (95) 121/66 (84) 124/74 (91) Pulse Ox 93 93 93 93 FiO2 100 05/09/21 05/09/21 05/09/21 05/09/21 12:00 12:00 12:00 12:15 Temp 99.7 99.7 Pulse 50 75 50 Resp 21 B/P (MAP) 126/71 (89) 119/71 (87) Pulse Ox 94 89 94 O2 Delivery Mechanical Ventilator FiO2 100 05/09/21 05/09/21 05/09/21 05/09/21 12:30 12:45 13:00 13:15 Temp 99.9 99.9 99.9 Pulse 62 55 55 58 Resp 19 B/P (MAP) 114/65 (81) 110/69 (83) 120/67 (84) Pulse Ox 91 93 93 94 FiO2 100 05/09/21 05/09/21 05/09/21 05/09/21 13:15 13:30 13:31 13:45 Temp 100.0 100.2 100.2 100.2 Pulse 59 85 79 67 B/P (MAP) 128/70 (89) 134/87 (103) 114/63 (80) Pulse Ox 91 91 91 87 05/09/21 05/09/21 05/09/21 05/09/21 14:00 14:15 14:30 14:45 Temp 100.2 100.2 100.2 100.2 Pulse 75 52 83 69 B/P (MAP) 131/77 (95) 114/67 (83) 122/94 (103) 119/63 (81) Pulse Ox 90 89 92 89 05/09/21 05/09/21 05/09/21 05/09/21 15:00 15:15 15:15 15:30 Temp 100.4 100.2 100.2 Pulse 58 47 53 53 Resp 23 B/P (MAP) 124/67 (86) 119/59 (79) 111/59 (76) Pulse Ox 91 94 91 91 FiO2 100 05/09/21 05/09/21 05/09/21 05/09/21 15:45 16:00 16:00 16:00 Temp 100.2 100.2 Pulse 52 47 49 Resp 24 B/P (MAP) 107/62 (77) 101/61 (74) Pulse Ox 92 92 93 O2 Delivery Mechanical Ventilator FiO2 100 05/09/21 05/09/21 05/09/21 05/09/21 16:15 16:30 16:45 17:00 Temp 100.2 100.2 100.2 100.2 Pulse 48 47 47 47 B/P (MAP) 114/56 (75) 110/58 (75) 112/63 (79) 98/60 (73) Pulse Ox 93 93 93 93 05/09/21 05/09/21 05/09/21 05/09/21 17:15 17:15 17:30 17:45 Temp 100.2 100.2 100.0 Pulse 45 56 49 76 Resp 23 B/P (MAP) 110/49 (69) 113/54 (73) 133/68 (89) Pulse Ox 93 95 92 94 FiO2 100 05/09/21 05/09/21 05/09/21 05/09/21 18:00 18:15 18:30 18:45 Temp 99.9 99.9 99.9 99.9 Pulse 83 82 93 86 B/P (MAP) 112/61 (78) 116/62 (80) 112/66 (81) 100/55 (70) Pulse Ox 90 90 91 91 05/09/21 05/09/21 05/09/21 05/09/21 19:00 19:15 19:30 19:45 Temp 99.9 99.9 99.9 99.9 Pulse 107 111 95 140 B/P (MAP) 111/48 (69) 132/48 (76) 115/69 (84) 117/68 (84) Pulse Ox 91 85 93 05/09/21 05/09/21 05/09/21 05/09/21 20:00 20:00 20:00 20:04 Temp 99.9 Pulse 116 122 123 Resp 29 28 B/P (MAP) 119/72 (88) Pulse Ox 87 87 85 O2 Delivery Mechanical Ventilator FiO2 100 100 05/09/21 05/09/21 05/09/21 05/09/21 20:15 20:30 20:45 21:00 Temp 99.9 100.2 100.2 100.2 Pulse 127 108 108 103 B/P (MAP) 133/60 (84) 111/64 (80) 113/67 (82) 108/64 (79) Pulse Ox 89 91 92 89 05/09/21 05/09/21 05/09/21 05/09/21 21:15 21:30 21:45 22:00 Temp 100.2 100.2 100.1 Pulse 111 110 105 73 B/P (MAP) 122/69 (86) 121/76 (91) 116/65 (82) 103/61 (75) Pulse Ox 90 88 88 82 05/09/21 05/09/21 05/09/21 05/09/21 22:15 22:19 22:30 22:45 Temp 99.9 99.9 99.5 Pulse 68 66 64 60 Resp 26 B/P (MAP) 95/55 (68) 102/57 (72) 105/52 (69) Pulse Ox 84 89 85 85 FiO2 100 05/09/21 05/09/21 05/09/21 8/13/21 23:00 23:13 23:13 23:15 Temp 99.5 99.3 Pulse 57 56 56 Resp 24 B/P (MAP) 101/57 (72) 106/61 (76) Pulse Ox 86 88 87 O2 Delivery Mechanical Ventilator FiO2 100 05/09/21 05/09/21 05/09/21 05/10/21 23:30 23:45 23:56 00:00 Temp 99.3 99.1 99.1 Pulse 53 50 53 51 Resp 23 23 B/P (MAP) 97/59 (72) 109/59 (76) 107/61 (76) Pulse Ox 88 87 88 89 O2 Delivery Mechanical Ventilator 05/10/21 05/10/21 05/10/21 05/10/21 00:11 00:15 00:30 00:45 Temp 99.1 99.1 99.1 Pulse 58 51 50 52 Resp 22 B/P (MAP) 109/65 (80) 113/64 (80) 112/66 (81) Pulse Ox 89 88 88 88 FiO2 100 05/10/21 05/10/21 05/10/21 05/10/21 01:00 01:15 01:30 01:45 Temp 98.9 98.9 98.9 98.9 Pulse 51 51 49 52 Resp 19 B/P (MAP) 108/61 (77) 106/56 (73) 109/63 (78) 101/59 (73) Pulse Ox 88 88 88 87 05/10/21 05/10/21 05/10/21 05/10/21 02:00 02:07 02:15 02:30 Temp 98.9 98.7 98.7 Pulse 51 49 51 49 Resp 25 B/P (MAP) 105/59 (74) 103/59 (74) 113/58 (76) Pulse Ox 85 89 86 87 FiO2 100 05/10/21 05/10/21 05/10/21 05/10/21 02:45 03:00 03:15 03:30 Temp 98.7 98.7 98.7 98.7 Pulse 50 48 49 48 B/P (MAP) 109/61 (77) 109/60 (76) 98/56 (70) 106/59 (75) Pulse Ox 86 86 86 86 05/10/21 05/10/21 05/10/21 8/14/21 03:45 04:00 04:15 04:16 Temp 98.7 98.5 98.5 Pulse 47 49 49 49 Resp 26 B/P (MAP) 109/67 (81) 106/52 (70) 104/55 (71) Pulse Ox 86 86 85 95 FiO2 100 05/10/21 05/10/21 05/10/21 05/10/21 04:30 04:45 04:48 04:48 Temp 98.5 98.3 Pulse 48 47 46 Resp 17 17 B/P (MAP) 103/57 (72) 102/55 (71) Pulse Ox 93 93 93 O2 Delivery Mechanical Ventilator FiO2 100 05/10/21 05/10/21 05/10/21 05/10/21 05:00 05:15 05:30 05:31 Temp 98.2 98.2 98.2 98.2 Pulse 49 50 49 48 B/P (MAP) 101/54 (70) 98/53 (68) 145/57 (86) Pulse Ox 95 95 95 94 05/10/21 05/10/21 05/10/21 05/10/21 05:45 06:00 06:00 06:15 Temp 98.1 98.1 98.1 Pulse 48 47 46 46 Resp 25 B/P (MAP) 113/64 (80) 107/59 (75) 107/58 (74) Pulse Ox 96 97 96 95 FiO2 100 05/10/21 05/10/21 05/10/21 05/10/21 06:30 06:45 08:23 08:23 Temp 97.9 97.9 Pulse 47 47 46 46 Resp 20 26 26 B/P (MAP) 98/60 (73) 92/54 (67) Pulse Ox 97 95 96 96 O2 Delivery Mechanical Ventilator FiO2 100 Intake and Output 05/10/21 07:00 Intake Total 3013 ml Output Total 2375 ml Balance 638 ml General: Other (Intubated sedated.) HEENT: Atraumatic, PERRLA, EOMI Neck: Supple Lungs: Other (Coarse bilateral breath sounds, respirations labored) Heart: No murmurs Abdomen: Normal bowel sounds, Soft Extremities: No clubbing, No cyanosis Skin: No rashes, No breakdown Neuro: Other (Intubated sedated.) Psych/Mental Status: Other (Intubated sedated.) All Results(Lab/Rad) Laboratory Tests Test 05/02/21 06:37 05/02/21 08:25 White Blood Count 7.6 10^3/uL Red Blood Count 4.62 10^6/uL Hemoglobin 13.6 g/dL Hematocrit 40.6 % Mean Corpuscular Volume 87.9 fL Mean Corpuscular Hemoglobin 29.4 pg Mean Corpuscular Hemoglobin Concent 33.5 g/dL Red Cell Distribution Width 12.0 % Platelet Count 268 10^3/uL Mean Platelet Volume 10.5 fL Neutrophils (%) (Auto) 82.9 % Lymphocytes (%) (Auto) 11.7 % Monocytes (%) (Auto) 5.4 % Neutrophils # (Auto) 6.3 10^3/uL Lymphocytes # (Auto) 0.89 10^3/uL1 Monocytes # (Auto) 0.4 10^3/uL Absolute Immature Granulocyte (auto 0.12 10^3 u/L Absolute Eosinophils (auto) 0.0 10^3/uL Immature Granulocytes % 1.60 % Eosinophils % 0.0 % Basophils % 0.0 % Basophils # 0.0 10^3/uL Sodium Level 140 mmol/L Potassium Level 4.7 mmol/L Chloride Level 104.0 mmol/L Carbon Dioxide Level 27.6 mmol/L Anion Gap 13.1 Blood Urea Nitrogen 14 mg/dL Creatinine 0.62 mg/dL Estimated GFR () 131.8 Est GFR (CKD-EPI)(Non-Afr [place]) 108.9 BUN/Creatinine Ratio 22.0 Glucose Level 121 mg/dL Calcium Level 8.8 mg/dL Total Bilirubin 0.4 mg/dL Aspartate Amino Transf (AST/SGOT) 26 U/L Alanine Aminotransferase (ALT/SGPT) 37 U/L Alkaline Phosphatase 42 U/L Total Protein 6.7 g/dL Albumin 2.5 g/dL Globulin 4.2 Albumin/Globulin Ratio 0.595 Blood Gas Sample Site RT RADIAL ARTERY Blood Gas pH 7.405 Blood Gas PCO2 41.1 mmHg Blood Gas PO2 82.5 mmHg Blood Gas HCO3 25.2 mmol/L Blood Gas Base Excess 0.4 mmol/L Lucas Test POSITIVE Arterial Blood Oxygen Saturation 95.5 % Deoxyhemoglobin 4.5 % Carboxyhemoglobin 0.6 % Methemoglobin 0.3 % Total Hemoglobin 14.6 % Total Oxygen Concentration 19.5 % Blood Gas Temperature 37 Oxygen Delivery Method (LAB) [id number]/7 FiO2 99 % Total Carbon Dioxide 26.4 mmol/L Current Medications Medications (Trade) Dose Ordered Sig/Davon Route PRN Reason Start Time Stop Time Status Last Admin Dose Admin Remdesivir 200 mg/ Sodium Chloride 140 ml @ 120.69 mls/ hr OT STAT IV 04/28/21 19:53 04/29/21 08:10 DC 04/28/21 19:53 Remdesivir 100 mg/ Sodium Chloride 120 ml @ 111.111 mls/hr Q24HRS IV 04/29/21 20:00 05/02/21 21:05 05/01/21 20:50 Famotidine (Pepcid) 20 mg BID PO 04/28/21 21:00 05/28/21 20:59 05/02/21 09:29 Sucralfate (Carafate) 1 gm ACHS PO 04/28/21 21:00 05/28/21 20:59 05/02/21 07:30 Enoxaparin Sodium (Lovenox) 40 mg Q24HRS SQ 04/28/21 20:00 05/28/21 19:59 05/01/21 20:50 Sucralfate (Carafate) 1 gm STK-MED ONCE PO 04/28/21 20:56 04/28/21 20:56 DC Lorazepam (Ativan) 1 mg Q4HR PRN IV ANXIETY 04/29/21 00:00 05/29/21 00:00 04/30/21 22:30 Lorazepam (Ativan) 0.5 mg Q4HR PRN IV ANXIETY 04/29/21 00:00 05/29/21 00:00 Fentanyl Citrate (Sublimaze) 50 mcg STK-MED ONCE .ROUTE 04/29/21 11:37 04/29/21 11:38 DC Fentanyl Citrate (Sublimaze) 12.5 mcg OT ONCE IV 04/29/21 15:00 04/29/21 15:06 DC 04/29/21 13:35 Acetaminophen (Tylenol) 650 mg Q6HR PRN PO PAIN 1 - 3 04/30/21 18:00 05/02/21 18:00 05/01/21 06:28 Dexmedetomidine HCl 200 mcg/ Sodium Chloride 50 ml @ 0 mls/hr IV 05/01/21 10:30 05/01/21 11:28 DC Sodium Chloride 250 ml @ ud STK-MED ONCE .ROUTE 05/01/21 20:40 05/01/21 20:40 DC Assessment/Plan Assessment/Plan Problems: (1) Acute and chronic respiratory failure with hypoxia ICD Code: J96.21 - Acute and chronic respiratory failure with hypoxia SNOMED: 64146761, [id number] (2) Pneumonia due to COVID-19 virus Status: Acute ICD Code: U07.1 - COVID-19; J12.82 - Pneumonia due to coronavirus disease 2018 SNOMED: [id number] Plan Plan Continue full ventilator support Titrate FiO2 to keep saturation more than 92% Diet continue tube feedings as per dietitian Dexamethasone Empiric IV antibiotic, Zosyn Patient continue treatment with remdesivir DVT prophylaxis Lovenox GI prophylaxis Further critical care management as per telemetry construction crew member. Still awaiting transfer to a higher level of care, patient may need ECMO. Case management consulted. Patient presenting with potentially life-threatening condition, critical care time spent examining the patient, reviewing labs, reviewing x-ray, discussing the case with AUTOMATION ENGINEER, respiratory therapist and documentation 60 minutes. ALANNA GARCIA MD May 10, 2021 10:19
[2021-05-10] MEDS ORDERED: LASIX IV SCH (10:30)
[2021-05-10] MEDS ORDERED: LASIX ONE (10:48)
[2021-05-10] MEDS: SUBLIMAZE IV PRN (11:21)
[2021-05-10] MEDS: NS IV SCH (11:21)
[2021-05-10] MEDS: SUBLIMAZE IV SCH (11:21)
--- NOTE | 2021-05-10 12:51 | TELE.CONS ---
VITALS REVIEW VITALS Vital Sign - Last 24 Hours 05/10/21 05/10/21 05/10/21 05/10/21 08:23 08:23 08:35 10:34 Pulse 46 46 47 Resp 26 26 26 Pulse Ox 96 96 95 O2 Delivery Mechanical Ventilator Mechanical Ventilator FiO2 100 100 05/10/21 10:55 B/P (MAP) 120/74 Assessment/Plan Assessment/Plan Assessment/Plan This is a 35-year-old woman with Covid pneumonia/ARDS. Overnight, continuous sedation medications were adjusted to facilitate ventilator synchrony. Currently, the patient is on propofol 50 mcg/kg/min, fentanyl 200 mcg/h, Versed 8 mg/h, Precedex 0.4 mcg/kg/hr. On camera, the patient is intubated and sedated. Vent set to rate 22, tidal 09/29/2019, 100%, PEEP 12. EMR data reviewed. Last ABG 7.36/56/54. Triglycerides 207. BUN 14, creatinine 0.51. 24-hour fluid balance: In 3 L, output 2.3 L. Diagnosis: Covid/ARDS Plan: For Covid specific treatment, the patient remains on dexamethasone. She has completed a course of remdesivir. She remains on Zosyn empirically PaO2 is just barely acceptable despite FiO2 100% and PEEP of 12. She is on the wait list for transfer for ECMO evaluation. In the meantime prone positioning and neuromuscular blockade are indicated. Discussed in detail with the bedside team. I encouraged increasing the rate of the Versed drip, and backing off the Precedex because of the bradycardia. Right now there is no associated hypotension, but we do not know how long she will be able to tolerate it. Once the patient's sedation has been sorted, the patient be placed into the prone po sition daily, 18 hours in the prone position alternating to 6 hours supine. Neuromuscular blockade with vecuronium can be used to further facilitate vent synchrony, but only when other sedation is adequate. -Lasix 20 mg iv BID added for goal negative fluid balance. Monitor electrolytes as needed, depending on response -Enoxaparin for DVT prophylaxis -Famotidine for stress ulcer prophylaxis Plan reviewed with bedside team. Patient seen through remote audiovisual assessment through HIPAA compliant setup. All labs, flowsheets, and images reviewed Cumulative nonprocedural critical care time spent in directed patient care = 60min CARLOS GOODMAN MD May 10, 2021 12:50
--- NOTE | 2021-05-10 16:10 | DIET.OP ---
Nutrition Asmt/Malnutrit 2-17 Actual Date of Review: May 10, 2021 Nutritional Screening: Other (LOS) Diagnosis: covid pneumonia Pertinent Medical Hx/Surgical: none Subjective Information: pt intubated and sedated x 3 days. Propofol at max rate providing 730 kcal. Recommend starting tube feedings Current Diet Order/Nutrition S: NPO Pertinent Meds Current Medications Medications (Trade) Dose Ordered Sig/Davon Route PRN Reason Start Time Stop Time Status Last Admin Dose Admin Remdesivir 200 mg/ Sodium Chloride 140 ml @ 120.69 mls/ hr OT STAT IV 04/28/21 19:53 04/29/21 08:10 DC 04/28/21 19:53 Remdesivir 100 mg/ Sodium Chloride 120 ml @ 111.111 mls/hr Q24HRS IV 04/29/21 20:00 05/02/21 21:05 DC 05/02/21 20:45 Famotidine (Pepcid) 20 mg BID PO 04/28/21 21:00 05/07/21 09:31 DC 05/06/21 08:14 Sucralfate (Carafate) 1 gm ACHS PO 04/28/21 21:00 05/28/21 20:59 05/09/21 20:50 Enoxaparin Sodium (Lovenox) 40 mg Q24HRS SQ 04/28/21 20:00 05/06/21 08:06 DC 05/05/21 21:00 Sucralfate (Carafate) 1 gm STK-MED ONCE PO 04/28/21 20:56 04/28/21 20:56 DC Lorazepam (Ativan) 1 mg Q4HR PRN IV ANXIETY 04/29/21 00:00 05/29/21 00:00 05/06/21 18:45 Lorazepam (Ativan) 0.5 mg Q4HR PRN IV ANXIETY 04/29/21 00:00 05/06/21 09:00 DC Fentanyl Citrate (Sublimaze) 50 mcg STK-MED ONCE .ROUTE 04/29/21 11:37 04/29/21 11:38 DC Fentanyl Citrate (Sublimaze) 12.5 mcg OT ONCE IV 04/29/21 15:00 04/29/21 15:06 DC 04/29/21 13:35 Acetaminophen (Tylenol) 650 mg Q6HR PRN PO PAIN 1 - 3 04/30/21 18:00 05/02/21 18:00 DC 05/01/21 06:28 Dexmedetomidine HCl 200 mcg/ Sodium Chloride 50 ml @ 0 mls/hr IV 05/01/21 10:30 05/01/21 11:28 DC Sodium Chloride 250 ml @ ud STK-MED ONCE .ROUTE 05/01/21 20:40 05/01/21 20:40 DC Acetaminophen (Tylenol) 650 mg Q6HR PRN PO PAIN 1 - 3 05/02/21 20:30 05/08/21 18:01 DC 05/04/21 21:15 Bisacodyl (Dulcolax Ec Tablet) 5 mg STAT STAT PO 05/03/21 13:45 05/03/21 19:05 DC 05/03/21 14:36 Docusate Sodium (Colace) 100 mg BID PO 05/05/21 09:00 05/07/21 09:30 DC 05/06/21 08:14 Lorazepam (Ativan) 2 mg STK-MED ONCE .ROUTE 05/05/21 02:31 05/05/21 02:31 DC Lorazepam (Ativan) 2 mg STK-MED ONCE .ROUTE 05/05/21 03:46 05/05/21 03:47 DC Furosemide (Lasix) 20 mg OT ONCE IV 05/05/21 11:00 05/05/21 11:01 DC 05/05/21 11:20 Lorazepam (Ativan) 2 mg STK-MED ONCE .ROUTE 05/05/21 20:56 05/05/21 20:56 DC Enoxaparin Sodium (Lovenox) 100 mg Q12H SQ 05/06/21 08:30 06/05/21 08:29 05/10/21 09:00 Furosemide (Lasix) 20 mg STAT STAT IV 05/06/21 08:48 05/06/21 09:00 DC 05/06/21 08:48 Insulin Human Regular (Humulin R) 1 unit STK-MED ONCE .ROUTE 05/06/21 19:13 05/06/21 19:14 DC Propofol (Diprivan) 1,000 mg PRN PRN IV SEDATION 05/06/21 20:30 05/08/21 11:39 DC 05/08/21 04:00 Propofol 100 ml @ ud STK-MED ONCE IV 05/06/21 20:19 05/06/21 20:19 DC Vecuronium Marks (Norcuron) 10 mg STK-MED ONCE .ROUTE 05/06/21 22:24 05/06/21 22:24 DC Vecuronium Marks (Norcuron) 10 mg Q6HR PRN IV SHORTNESS OF BREATH 05/06/21 23:00 05/07/21 00:34 DC Vecuronium Marks (Norcuron) 10 mg Q4 PRN IV SHORTNESS OF BREATH 05/07/21 00:30 05/12/21 00:00 05/07/21 22:01 Vecuronium Marks (Norcuron) 10 mg STK-MED ONCE .ROUTE 05/07/21 00:20 05/07/21 00:34 DC Propofol 100 ml @ ud STK-MED ONCE IV 05/07/21 01:53 05/07/21 01:53 DC Norepinephrine Bitartrate 8 mg/ Sodium Chloride 250 ml @ 0 mls/hr DAILY IV 05/07/21 09:00 06/06/21 08:59 05/09/21 09:00 Fentanyl Citrate (Sublimaze) 100 mcg Q1HR IV 05/07/21 04:00 05/07/21 09:58 DC Piperacillin Sod/ Tazobactam Sod 4.5 gm/Sodium Chloride 100 ml @ 100 mls/hr Q6H IV 05/07/21 04:00 06/06/21 03:59 05/10/21 10:55 Norepinephrine Bitartrate (Levophed) 4 mg STK-MED ONCE .ROUTE 05/07/21 04:38 05/07/21 04:38 DC Sodium Chloride 250 ml @ ud STK-MED ONCE .ROUTE 05/07/21 04:38 05/07/21 04:38 DC Fentanyl Citrate (Sublimaze) 100 mcg Q1HR PRN IV PAIN 7 - 10 05/07/21 06:30 06/06/21 06:29 05/10/21 11:21 Fentanyl Citrate 2000 mcg/Sodium Chloride 200 ml @ 0 mls/hr IV 05/07/21 10:00 05/07/21 17:01 DC 05/07/21 10:30 Famotidine (Pepcid) 20 mg BID IV 05/07/21 09:30 06/06/21 09:29 05/10/21 09:00 Docusate Sodium (Colace) 100 mg BID NG 05/07/21 09:30 06/06/21 09:29 05/10/21 09:00 Propofol (Diprivan) 200 mg STK-MED ONCE IV 05/07/21 08:00 05/07/21 11:57 DC Succinylcholine Chloride (Quelicin) 8 mg STK-MED ONCE IV 05/07/21 08:00 05/07/21 11:57 DC Vecuronium Marks (Norcuron) 10 mg STK-MED ONCE IV 05/07/21 08:00 05/07/21 11:57 DC Propofol 100 ml @ ud STK-MED ONCE IV 05/07/21 14:49 05/07/21 14:50 DC Fentanyl Citrate 5000 mcg/Sodium Chloride 500 ml @ 0 mls/hr IV 05/07/21 18:00 06/06/21 17:59 Propofol 100 ml @ ud STK-MED ONCE IV 05/07/21 19:08 05/07/21 19:08 DC Propofol 100 ml @ ud STK-MED ONCE IV 05/07/21 23:47 05/07/21 23:47 DC Propofol 100 ml @ ud STK-MED ONCE IV 05/08/21 03:45 05/08/21 03:46 DC Propofol 100 ml @ ud STK-MED ONCE IV 05/08/21 07:33 05/08/21 07:34 DC Propofol 100 ml @ ud STK-MED ONCE IV 05/08/21 11:27 05/08/21 11:27 DC Propofol 100 ml @ 0 mls/hr PRN PRN IV SEDATION 05/08/21 12:00 06/07/21 11:59 Acetaminophen (Tylenol) 650 mg Q6HR PRN RC FEVER 05/08/21 22:00 06/07/21 21:59 05/08/21 22:15 Midazolam HCl 50 mg/Sodium Chloride 50 ml @ 2 mls/hr ONCE IV 05/09/21 14:30 05/10/21 09:50 DC 05/09/21 14:30 Hydromorphone HCl (Dilaudid) 2 mg STK-MED ONCE .ROUTE 05/09/21 20:10 05/09/21 20:10 DC Hydromorphone HCl (Dilaudid) 0.5 mg Q4H PRN IV PAIN 7 - 10 05/09/21 20:00 06/08/21 19:59 05/09/21 20:33 Sodium Chloride 100 ml @ ud STK-MED ONCE IV 05/09/21 21:13 05/09/21 21:13 DC Midazolam HCl 100 mg/Sodium Chloride 100 ml @ 0 mls/hr ONCE IV 05/10/21 10:00 05/10/21 10:01 DC 05/10/21 10:55 Furosemide (Lasix) 20 mg BID IV 05/10/21 10:30 05/10/21 12:38 DC 05/10/21 10:55 Furosemide (Lasix) 20 mg STK-MED ONCE .ROUTE 05/10/21 10:48 05/10/21 10:49 DC Vecuronium Marks (Norcuron) 10 mg Q2H PRN IV ventilator dyssynchrony 05/10/21 11:30 06/09/21 11:29 Furosemide (Lasix) 20 mg BID IV 05/10/21 12:38 06/09/21 10:29 Pertinent Labs Laboratory Tests Test 05/08/21 17:50 05/08/21 23:51 05/09/21 04:20 05/09/21 07:35 Bedside Glucose 142 131 White Blood Count 22.5 10^3/uL Red Blood Count 4.39 10^6/uL Hemoglobin 13.0 g/dL Hematocrit 40.7 % Mean Corpuscular Volume 92.7 fL Mean Corpuscular Hemoglobin 29.6 pg Mean Corpuscular Hemoglobin Concent 31.9 g/dL Red Cell Distribution Width 12.6 % Platelet Count 330 10^3/uL Mean Platelet Volume 10.1 fL Neutrophils (%) (Auto) 92.6 % Lymphocytes (%) (Auto) 4.1 % Monocytes (%) (Auto) 3.3 % Neutrophils # (Auto) 20.8 10^3/uL Lymphocytes # (Auto) 0.92 10^3/uL1 Monocytes # (Auto) 0.8 10^3/uL Absolute Immature Granulocyte (auto 0.10 10^3 u/L Absolute Eosinophils (auto) 0.0 10^3/uL Immature Granulocytes % 0.40 % Eosinophils % 0.0 % Basophils % 0.0 % Basophils # 0.0 10^3/uL Sodium Level 148 mmol/L Potassium Level 4.2 mmol/L Chloride Level 109.0 mmol/L Carbon Dioxide Level 30.9 mmol/L Anion Gap 12.3 Blood Urea Nitrogen 18 mg/dL Creatinine 0.65 mg/dL Estimated GFR () 124.8 Est GFR (CKD-EPI)(Non-Afr Citizen Of [place]) 103.1 BUN/Creatinine Ratio 27.0 Glucose Level 142 mg/dL Calcium Level 8.6 mg/dL Total Bilirubin 0.8 mg/dL Aspartate Amino Transf (AST/SGOT) 38 U/L Alanine Aminotransferase (ALT/SGPT) 55 U/L Alkaline Phosphatase 70 U/L Total Protein 6.9 g/dL Albumin 2.1 g/dL Globulin 4.8 Albumin/Globulin Ratio 0.437 Procalcitonin 0.06 ng/mL Blood Gas Sample Site RT BRACIAL ARTERY Blood Gas pH 7.387 Blood Gas PCO2 48.3 mmHg Blood Gas PO2 57.0 mmHg Blood Gas HCO3 28.4 mmol/L Blood Gas Base Excess 2.6 mmol/L Lucas Test POSITIVE Arterial Blood Oxygen Saturation 88.1 % Deoxyhemoglobin 11.9 % Carboxyhemoglobin 0.1 % Methemoglobin 0.1 % Total Hemoglobin 13.6 % Total Oxygen Concentration 16.8 % Blood Gas Temperature 37 Oxygen Delivery Method (LAB) VENT Blood Gas Vent Mode AC Blood Gas Vent Rate 14 FiO2 100 % Blood Gas Tidal Volume 400 ML Blood Gas PEEP 12 CMH2O Total Carbon Dioxide 29.9 mmol/L Test 05/09/21 18:10 05/09/21 20:10 05/09/21 23:58 05/10/21 05:00 Bedside Glucose 118 113 Blood Gas Sample Site RT BRACIAL ARTERY LEFT RADIAL ARTERY Blood Gas pH 7.426 7.365 Blood Gas PCO2 46.7 mmHg 56.9 mmHg Blood Gas PO2 49.5 mmHg 54.0 mmHg Blood Gas HCO3 30.0 mmol/L 31.8 mmol/L Blood Gas Base Excess 4.8 mmol/L 5.0 mmol/L Lucas Test POSITIVE POSITIVE Arterial Blood Oxygen Saturation 83.6 % 84.6 % Deoxyhemoglobin 16.2 % 15.2 % Carboxyhemoglobin 0.9 % 0.7 % Methemoglobin 0.5 % 0.3 % Total Hemoglobin 13.9 % 12.6 % Total Oxygen Concentration 16.1 % 14.8 % Blood Gas Temperature 37 37.0 Oxygen Delivery Method (LAB) VENT VENTILATOR Blood Gas Vent Mode AC AC+ Blood Gas Vent Rate 22 28 FiO2 100 % 100 % Blood Gas Tidal Volume 320 ML 320 ML Blood Gas PEEP 12 CMH2O 14.0 CMH2O Total Carbon Dioxide 31.5 mmol/L 33.5 mmol/L Test 05/10/21 05:20 05/10/21 05:44 White Blood Count 13.9 10^3/uL Red Blood Count 4.20 10^6/uL Hemoglobin 12.4 g/dL Hematocrit 39.1 % Mean Corpuscular Volume 93.1 fL Mean Corpuscular Hemoglobin 29.5 pg Mean Corpuscular Hemoglobin Concent 31.7 g/dL Red Cell Distribution Width 12.4 % Platelet Count 201 10^3/uL Mean Platelet Volume 10.3 fL Neutrophils (%) (Auto) 93.0 % Lymphocytes (%) (Auto) 4.7 % Monocytes (%) (Auto) 2.3 % Neutrophils # (Auto) 13.0 10^3/uL Lymphocytes # (Auto) 0.65 10^3/uL1 Monocytes # (Auto) 0.3 10^3/uL Absolute Immature Granulocyte (auto 0.05 10^3 u/L Absolute Eosinophils (auto) 0.0 10^3/uL Immature Granulocytes % 0.40 % Eosinophils % 0.0 % Basophils % 0.0 % Basophils # 0.0 10^3/uL Sodium Level 143 mmol/L Potassium Level 4.2 mmol/L Chloride Level 107.0 mmol/L Carbon Dioxide Level 31.5 mmol/L Anion Gap 8.7 Blood Urea Nitrogen 14 mg/dL Creatinine 0.51 mg/dL Estimated GFR () 165.1 Est GFR (CKD-EPI)(Non-Afr Citizen Of [place]) 136.5 BUN/Creatinine Ratio 27.0 Glucose Level 146 mg/dL Calcium Level 8.7 mg/dL Total Bilirubin 0.6 mg/dL Aspartate Amino Transf (AST/SGOT) 35 U/L Alanine Aminotransferase (ALT/SGPT) 56 U/L Alkaline Phosphatase 61 U/L Total Protein 6.3 g/dL Albumin 2.1 g/dL Globulin 4.2 Albumin/Globulin Ratio 0.500 Triglycerides Level 207 mg/dL Segmented Neutrophils 98 % Lymphocytes 1 % Monocytes 1 % Platelet Estimate ADEQUATE Platelet Morphology NORMAL Height (Feet): 5 Height (Inches): 5 Current Weight: 203 Usual Weight: 225 %IBW: 162 Recent Weight Change: Yes (wt down 7# the last 9 days) Weight Status: Obese Food Allergies: No Cultural/Ethnic/Gnosticism Cookie: none known Usual Diet at Home: regular Skin Integrity/Comment: No Current %PO: NPO Calories/Kcals/Kg: abbe st eq Kcals Calculated: 1663 kcal Protein g/k-1.5 g/kg IBW Protein Calculated: 56-85g Fluid: ml: 2363 ml (25 ml/kg) Nutritional Problem: Nutr. Problems Present Problems: Inadequate oral intake Etiology: covid pneumonia/reduced appetite/intubation Signs/Symptoms: reduced po intake prior to intubation. Pt now mechanically ventilated with no energy intake the last 3 days. Wt trending down. Recommendations by RD: Add supplement feedings RD Comments: 1. Recommend starting enteral nutrition. Start Jevity 1.0 at 40 ml/hr. Continue at goal rate of 40 ml/hr with 120 ml water flush Q4h to provide 960 kcal, 42g protein, 149g carbs, 33g fat, and 1521 ml of water total. This will meet 100% of patient's energy needs in combination with calories from propofol. 2. Monitor Mg, K, and PO4 before and during tube feed initiation. 3. Monitor BG and correct as indicated. 4. Monitor BMs, bowel regimen as appropriate. Expected Outcomes Tube feeding started in 24-48 hrs discharge goal is pending Malnutrtion/Nutrition Risk Edu: No MD Notificiation Needed?: No Viviane Martini May 10, 2021 16:09
[2021-05-10] MEDS ORDERED: VERSED IV SCH (17:00)
[2021-05-10] MEDS ORDERED: NS IV SCH (17:00)
--- NOTE | 2021-05-10 18:29 | PCM.EKG ---
[facility] Test Date: 2021-05-09 Test Time: 19:48:10 Pat Name: SHAMIR RAHMAN Department: Room: ICU6 A Gender: F Captain Room Service: : 1985 Requested By: ALANNA GARCIA Order Number: [id number] Reading MD: Measurements Intervals [place] Rate: 125 P: 58 NE: 120 QRS: -74 QRSD: 89 T: 15 QT: 326 QTc: 471 Interpretive Statements Sinus tachycardia Probable left atrial enlargement Abnormal R-wave progression, late transition Inferior infarct, old Compared to ECG 05/03/2021 10:49:40 Myocardial infarct finding now present Sinus rhythm no longer present Left anterior fascicular block no longer present Left-axis deviation no longer present Please click the below link to view image of tracing.
--- NOTE | 2021-05-10 18:45 | NUR ---
REPORT RECEIVED FROM ARMAAN BRAY RN. ASSUMED PT CARE.
--- NOTE | 2021-05-10 20:06 | NUR ---
RASS SEDATION SCALE -2 PT BRIEFLY AWAKENS WITH EYE CONTACT TO VOICE PT IS ON PROPOFOL GTT @ 50MCG/KG/MIN
[2021-05-10] MEDS: LASIX IV SCH (20:46)
--- NOTE | 2021-05-10 22:25 | NUR ---
DR MONDRAGON NOTIFIED OF PT O2 SATS MAINTAINING BETWEEN 82% AND 85% SINCE PT PRONED @ 1900. TELEPHONE ORDER TO ADMIN OBI MDI AND MONITOR, IF NO IMPROVEMENT IN ONE HOUR TO INCREASE PEEP TO 14. TELEPHONE ORDER RBAV. RT Kylie SERRANO NOTIFIED.
--- NOTE | 2021-05-10 22:28 | NUR ---
Contacted physician regarding the downward trend in SpO2 since pronation at 1845. Requested orders to increase the PEEP to 14 and add ventolin MDI inline to improve airway compliance and perhaps assist in oxygen exchange. Physician was reluctant to increase PEEP citing fears of pneumothorax due to barotrauma, however, approved the addition of ventolin MDI with a 1 hour observation for change post treatment. If anticipated improvement is not achieved, then an increase in PEEP to 14 cm H2O would be indicated. Orders were confirmed, ELIANA. dottie Addendum: 05/10/21 at 2231 by ALLIE CHAPMAN Amended: Links added.
[2021-05-10] MEDS ORDERED: VENTOLIN HFA IH ONE ×2 (22:44→23:00)
--- NOTE | 2021-05-10 23:24 | NUR ---
MDI Administered with minimal effect. PEEP increased to 14cm H2O. Plt pressures remain below 20. Improvement of SpO2 noted within minutes to 89-90%. dottie Addendum: 05/10/21 at 2326 by ALLIE SMITH RT Amended: Links added.
--- NOTE | 2021-05-10 23:55 | NUR ---
DR MONDRAGON NOTIFIED THAT PEEP HAS BEEN INCREASED TO 14 AND O2 SATS BETWEEN 88% AND 90%. NO NEW ORDERS. WILL CONTINUE TO MONITOR.
[2021-05-11] VITALS (77 sets, daily range): BP systolic 98–128; BP diastolic 43–78
[2021-05-11] MEDS: DILAUDID IV PRN ×2 (01:39→21:00)
[2021-05-11] MEDS: ZOSYN 4.5 GM 4.5 GM in NS 100ML 100 ML IV SCH ×4 (04:00→22:00)
--- NOTE | 2021-05-11 04:28 | NUR ---
[facility] CALLED FOR UPDATE ON PT. UPDATE GIVEN TO ROD GARCIA.
[2021-05-11 05:49] LABS: LYMPHOCYTES # 0.61 10^3/uL1 (1.0-4.8); MEAN CORP HGB 29.6 pg (26-34); MONOCYTES # 0.5 10^3/uL (0.3-0.8); NEUTROPHIL # 14.3 10^3/uL (1.8-7.7); PLATELET COUNT 222 10^3/uL (150-400); RED CELL DISTRIBUTION WIDTH 12.2 % (11.5-14.5)
[2021-05-11 05:56] LABS: CALCIUM 8.7 mg/dL (8.4-10.5); CARBON DIOXIDE 35.6 mmol/L (20.0-32)
[2021-05-11 06:36] LABS: LYMPHOCYTE 1 % (25-36); MONOCYTE 2 % (3-9); SEGMENTED NEUTROPHILS 97 % (31-76)
--- NOTE | 2021-05-11 06:50 | NUR ---
REPORT TO ONCOMING SHIFT. PT CARE RELINQUISHED.
[2021-05-11] MEDS: CARAFATE PO SCH ×4 (07:30→21:00)
[2021-05-11] MEDS: LOVENOX SQ SCH ×2 (08:19→20:30)
[2021-05-11] MEDS: PEPCID IV SCH ×2 (08:20→21:00)
[2021-05-11] MEDS: DEXAMETHASONE 10 MG/ML VIAL IV SCH ×2 (08:20→21:00)
[2021-05-11] MEDS: LASIX IV SCH ×2 (08:20→21:00)
[2021-05-11 08:24] LABS: ABG PCO2 54.2 mmHg (35.0-45.0); ABG PH 7.399 (7.350-7.450); BE(B) 6.4 mmol/L (-2.0-2.0); HCO3act 32.7 mmol/L (22.0-26.0); pO2 53.9 mmHg (80.0-100.0)
[2021-05-11] MEDS: COLACE NG SCH ×2 (08:35→21:00)
[2021-05-11] MEDS ORDERED: LEVOPHED 8 MG in NS 250ML 250 ML IV SCH (09:00)
[2021-05-11] MEDS: LEVOPHED 8 MG in NS 250ML 250 ML IV SCH (10:16)
--- NOTE | 2021-05-11 11:15 | PRM.PN ---
PROGRESS NOTE S/O/A/P DATE: 05/11/21 TIME: 10:30am SUBJECTIVE: Patient seen and examined at bedside. Chart was reviewed. RN reports no new events overnight. Patient remains intubated and sedated, currently lying in the prone position at this time. OBJECTIVE: PHYSICAL EXAMINATION: VITAL SIGNS: T 99.3, HR 67, RR 26, BP 105/50, O2 sat 91% on VENT GENERAL: Resting comfortably in NAD. No family or friends present at bedside. HEENT: NC/AT. PERRL. MMM. Neck is supple. LUNGS: Coarse BL BS noted. +ETT in place. HEART: Normal S1S2. RRR. No murmurs, rubs, gallops, or thrills. ABDOMEN: Soft. ND. NTTP. Normal BS throughout. EXTREMITIES: Trace BL pedal edema noted. NEUROLOGIC: Unable to properly assess due to intubation and sedation. LABORATORY DATA: Reviewed and significant for WBC 15.3, CO2 35.6, Gluc 129, AB.39/54.2/53.9, Bld Cx: Neg x1day, Sptm Cx: Nml Resp Aimee IMAGING STUDIES: 1) CXR: Patchy diffuse airspace opacities c/w multilobar PNA to include from atypical organisms such as COVID-19. No significant change. ASSESSMENT / PLAN: 1) Acute Hypoxemic Respiratory Failure / Severe ARDS: Pt remains intubated (since 05/06/21) and sedated at this time. Will continue VENT management as per Tele-ICU School Psychologist. 2) COVID-19 +: Pt has completed Tx with Remdesivir, and remains on Dexamethasone for now. She would benefit from ECMO and/or lung transplant evaluation. However, no beds are available for transfer to a Higher Level of Care in [place], [place], or [place] at this time. She still remains on the "wait list" for [facility]. 3) BL Pneumonia: Due to #2 above. However, Pt does remain on Zosyn empirically for now. 4) Hypotension: Pt is still requiring low dose Levophed. Will attempt to wean off today. 5) Hyperglycemia: Exacerbated by Steroids and TF. Will check a HgbA1c. 6) GI and DVT prophylaxis: Will continue Pepcid and Lovenox (T-dose). Discussed case and POC with Dr Billingsley. Multiple telephone calls were made again today in an attempt to transfer Pt for a Higher Level of Care as recommended. However, due to the COVID surge, no beds are available at this time for transfer. Will continue current care for now. >45 min of CC time was spent with patient at bedside today, as well as in coordination of care with Consultants and Nursing Staff. IRVING SPIVEY MD May 11, 2021 11:15
--- NOTE | 2021-05-11 13:34 | TELE.CONS ---
VITALS REVIEW VITALS Vital Sign - Last 24 Hours 05/11/21 05/11/21 05/11/21 05/11/21 08:00 08:09 08:09 09:34 Pulse 74 74 67 Resp 31 31 28 Pulse Ox 92 92 91 O2 Delivery Mechanical Ventilator Mechanical Ventilator FiO2 100 100 100 05/11/21 05/11/21 11:49 12:12 Pulse 87 Resp 30 Pulse Ox 95 O2 Delivery Mechanical Ventilator FiO2 100 Intake and Output 05/11/21 07:00 Intake Total 2019 ml Output Total 3075 ml Balance -1056 ml Assessment/Plan Assessment/Plan Assessment/Plan This is a 35 year old woman with COVID pneumonia/ARDS. Over the past few days, the patient's clinical condition has deteriorated. This morning, she is seen on camera, in the prone position. Vent is set to 26/320/100/14; on this, ABG is 7.39/54/54 with SO2 in the mid 80s on pulse oximetry. 24 hr In 2 L/ Out 3 L Other bloodwork reviewed, appears unchanged from prior. Dx: COVID/refractory ARDS -The patient has been on a referral list for ECMO for the past several days. -On maximum therapies, including deep sedation, neuromuscular blockade, prone positioning, negative fluid balance, high PEEP, steroids, remdesivir, antibiotics, and therapeutic doses of lovenox. All of these therapies will be continued. -Inhaled pulmonary vasodilators are sometimes used in these refractory cases, but they do not appear to be available in this facility. The mortality benefit is unclear. -Prognosis is grave, even if/when ECMO becomes available. -Bedside team will update the family. Plan reviewed with bedside team. Patient seen through remote audiovisual assessment through HIPAA compliant setup. All labs, flowsheets, and images reviewed Cumulative nonprocedural critical care time spent in directed patient care = 60min CARLOS GOODMAN MD May 11, 2021 13:34
--- NOTE | 2021-05-11 16:15 | DIREP ---
PROCEDURE:CHEST 1 VIEW COMPARISON:[facility], CR, XRAY CHEST SINGLE VW, 05/10/2021, 04:50 AM. [facility], CR, XRAY CHEST SINGLE VW, 05/09/2021, 07:11 AM. [facility], CR, XRAY CHEST SINGLE VW, 05/08/2021, 07:07 AM. INDICATIONS:covid pneumonia/resp failure FINDINGS: LUNGS/PLEURA:Diffuse patchy pulmonary airspace opacities throughout all lobes, but appreciable interval change. No effusion or pneumothorax. VASCULATURE:Normal. Unremarkable pulmonary vasculature. CARDIAC:Normal. No cardiac silhouette abnormality or cardiomegaly. MEDIASTINUM:Normal. No visible mass or adenopathy. BONES:Mild degenerative changes. OTHER:Endotracheal tube with tip overlying the mid trachea. Enteric tube with tip off the inferior aspect of the image. Right arm PICC with tip overlying the right axilla. CONCLUSION:Patchy diffuse airspace opacities, consistent with multi lobar pneumonia to include from atypical organisms such as COVID-19. No significant change. Dictated by: Mary Kate Solares M.D. on 05/11/2021 at 04:13 PM
[2021-05-11 16:32] LABS: BILIRUBIN,URINE SMALL (NEGATIVE); UA COLOR YELLOW; UROBILINOGEN,URINE >=8.0 E.U./dL (0.2)
[2021-05-11] MEDS: NORCURON IV PRN (20:00)
[2021-05-11] MEDS: DIPRIVAN 100 ML IV PRN (20:13)
[2021-05-11] MEDS: PRECEDEX 400 MCG/100 ML INJECT 100 ML IV SCH (23:51)
[2021-05-12] VITALS (67 sets, daily range): BP systolic 89–153; BP diastolic 41–95
[2021-05-12 03:23] LABS: ABG PCO2 103.1 mmHg (35.0-45.0); ABG PH 7.232 (7.350-7.450); BE(B) 10.7 mmol/L (-2.0-2.0); HCO3act 42.4 mmol/L (22.0-26.0); pO2 64.8 mmHg (80.0-100.0)
[2021-05-12] MEDS: ZOSYN 4.5 GM 4.5 GM in NS 100ML 100 ML IV SCH (04:00)
--- NOTE | 2021-05-12 04:02 | TELE.CONS ---
Consultation Reason for Consult: Reason for Consultation: hypercapnea Review of Systems Constitutional: Chills, Weakness Eyes: No: Conjunctivae inflammation ENT: No: Nose pain, Nose discharge Respiratory: Cough, Dry, Shortness of breath, SOB with excertion Cardiovascular: No: Chest Pain, Orthopnea Gastrointestinal: Nausea Genitourinary: No Dysuria, No Frequency Musculoskeletal: No: back pain, hand pain Skin: No: Jaundice Neurological: Weakness; No: Numbness, Incoordination Allergies: Coded Allergies: ibuprofen (Verified Allergy, Unknown, 04/29/21) naproxen (Verified Allergy, Unknown, 04/29/21) VTE VTE Risk Total Score: 5 VTE Risk Score VTE Risk: Score 0-1 = Low Risk (Aggressive mobilization; early ambulation; no VTE prophylaxis required) Score 2: Moderate Risk (Intermittent/Pneumatic Compression Device OR Lovenox/Heparin/Coumadin) Score 3-4: High Risk (Intermittent/Pneumatic Compression Device AND Lovenox/Heparin/Coumadin) Score > or =5: Highest Risk (Intermittent/Pneumatic Compression Device AND Lovenox/Heparin/Coumadin) Antico:Hep/LMWH/Coum/Xarelto: Yes Mechanical device ordered: Yes VTE VTE Present on Admission: No Currently receiving anticoagul: Yes VTE Risk Total Score: 5 Antico:Hep/LMWH/Coum/Xarelto: Yes Mechanical device ordered: Yes Assessment/Plan Assessment/Plan Assessment/Plan This is a 35 year old woman with COVID pneumonia/ ARDS Alerted by ROD Gordon and RT Angel for worsening hypercapnea and acidosis ABG 7.23/103/64 Vent settings 320ml/26/100%/14 Peak pressure 32 Plat pressure 30 Auto-PEEP 1 Pt on NE 0.2 propofol 40 versed Plan: 1. increase RR to 34/min 2. CXR now 3. Albuterol MDI 4. Give vecuronium 10mg at 4am and 6am standing Recheck ABG 5am with appropriate correction of hypercapnea CXR 5am unchanged t/c yeni for ongoing mgmt Remote audiovisual assessment performed through mobile HIPAA compliant setup in ICU. Plan of care discussed with [facility]ICE CENTER REPRESENTATIVEROD Gordon and RT Angel. CCT60' Duration Duration or Time Spent with Pa: 60min CHELA WREN MD May 12, 2021 04:02
--- NOTE | 2021-05-12 04:38 | DIREP ---
PROCEDURE:CHEST 1 VIEW COMPARISON:[facility], CR, XRAY CHEST SINGLE VW, 05/01/2021, 10:49 AM. [facility], CR, XRAY CHEST SINGLE VW, 05/11/2021, 03:09 PM. [facility], CR, XRAY CHEST SINGLE VW, 05/10/2021, 04:50 AM. [facility], CR, XRAY CHEST SINGLE VW, 05/09/2021, 07:11 AM. INDICATIONS:PNEU FINDINGS: LUNGS/PLEURA:Stable ET tube. Stable diffuse bilateral ground-glass opacities. No effusions.. VASCULATURE:Normal. Unremarkable pulmonary vasculature. CARDIAC:Normal. No cardiac silhouette abnormality or cardiomegaly. MEDIASTINUM:Normal. No visible mass or adenopathy. BONES:Normal. No fracture or visible bony lesion. OTHER:Stable NG tube. EKG leads overlie the chest. CONCLUSION:No significant change since yesterday. Continued findings consistent with Covid 19 pneumonia. Dictated by: Perez Mayorga M.D. on 05/12/2021 at 04:34 AM
--- NOTE | 2021-05-12 04:46 | NUR ---
Noted marked increase in EtCO2 trend (which was trending upward) from the mid 40's into the low 60's over the period of approximately 1.5 hours. Made contact with Telemedicine Physician, Dr. Jorge. After review of the STAT ABG showing PCO2 in excess of 100; the following ventilator changes were made. Increase Frequency to 32/min. Observation of Plateau and Auto PEEP numbers were 30cm H2O and 15cm H2O respectively. Furthermore, redraw the STAT ABG for an additional teleconference at or about 0500. Orders were RBAV for confirmation. Noted an anticipated decrease in the measured EtCO2 measurement/ waveform within minutes of the changes being made. dottie Addendum: 05/12/21 at 0450 by ALLIE CHAPMAN Amended: Links added.
[2021-05-12 05:39] LABS: ABG PCO2 71.8 mmHg (35.0-45.0); BE(B) 11.8 mmol/L (-2.0-2.0); HCO3act 40.6 mmol/L (22.0-26.0)
[2021-05-12 06:00] LABS: CALCIUM 8.7 mg/dL (8.4-10.5)
[2021-05-12 06:02] LABS: EOSINOPHIL % 0.1 % (0.0-5.0); LYMPHOCYTES # 0.41 10^3/uL1 (1.0-4.8); MEAN CORP HGB 28.9 pg (26-34); MONOCYTES # 0.3 10^3/uL (0.3-0.8); MONOCYTES % 1.8 % (5.0-12.0); NEUTROPHIL # 13.1 10^3/uL (1.8-7.7); NEUTROPHILS % 94.4 % (41.0-85.0); PLATELET COUNT 197 10^3/uL (150-400); RED CELL DISTRIBUTION WIDTH 12.2 % (11.5-14.5)
[2021-05-12] MEDS: NORCURON IV PRN ×6 (07:00→22:00)
[2021-05-12] MEDS: CARAFATE PO SCH ×4 (07:30→21:00)
[2021-05-12] MEDS: LASIX IV SCH ×2 (08:17→21:00)
[2021-05-12] MEDS: DEXAMETHASONE 10 MG/ML VIAL IV SCH ×2 (08:17→21:00)
[2021-05-12] MEDS: LOVENOX SQ SCH ×2 (08:17→20:30)
[2021-05-12] MEDS: PEPCID IV SCH ×2 (08:17→21:00)
[2021-05-12] MEDS: COLACE NG SCH ×2 (08:17→21:00)
--- NOTE | 2021-05-12 12:07 | TELE.CONS ---
Consultation Reason for Consult: Reason for Consultation: resp failure, covid Review of Systems Constitutional: Chills, Weakness Eyes: No: Conjunctivae inflammation ENT: No: Nose pain, Nose discharge Respiratory: Cough, Dry, Shortness of breath, SOB with excertion Cardiovascular: No: Chest Pain, Orthopnea Gastrointestinal: Nausea Genitourinary: No Dysuria, No Frequency Musculoskeletal: No: back pain, hand pain Skin: No: Jaundice Neurological: Weakness; No: Numbness, Incoordination Allergies: Coded Allergies: ibuprofen (Verified Allergy, Unknown, 04/29/21) naproxen (Verified Allergy, Unknown, 04/29/21) VITALS REVIEW VITALS Vital Sign - Last 24 Hours 05/12/21 05/12/21 05/12/21 08:57 08:57 09:16 Pulse 60 60 61 Resp 37 37 34 Pulse Ox 89 89 88 O2 Delivery C-Pap FiO2 100 100 100 LABS LAB RESULTS Laboratory Tests Test 04/29/21 04:35 04/30/21 04:28 05/01/21 04:32 05/01/21 11:20 White Blood Count 6.2 10^3/uL 6.4 10^3/uL 10.2 10^3/uL Red Blood Count 4.64 10^6/uL 4.49 10^6/uL 4.50 10^6/uL Hemoglobin 13.5 g/dL 13.3 g/dL 13.3 g/dL Hematocrit 41.2 % 39.3 % 39.6 % Mean Corpuscular Volume 88.8 fL 87.5 fL 88.0 fL Mean Corpuscular Hemoglobin 29.1 pg 29.6 pg 29.6 pg Mean Corpuscular Hemoglobin Concent 32.8 g/dL 33.8 g/dL 33.6 g/dL Red Cell Distribution Width 12.5 % 12.1 % 12.1 % Platelet Count 162 10^3/uL 195 10^3/uL 234 10^3/uL Mean Platelet Volume 10.9 fL 10.8 fL 10.4 fL Neutrophils (%) (Auto) 72.3 % 70.8 % Lymphocytes (%) (Auto) 19.0 % 20.6 % Monocytes (%) (Auto) 8.4 % 8.4 % Neutrophils # (Auto) 4.5 10^3/uL 4.5 10^3/uL Lymphocytes # (Auto) 1.17 10^3/uL1 1.32 10^3/uL1 Monocytes # (Auto) 0.5 10^3/uL 0.5 10^3/uL Absolute Immature Granulocyte (auto 0.02 10^3 u/L 0.04 10^3 u/L Absolute Eosinophils (auto) 0.0 10^3/uL 0.0 10^3/uL Immature Granulocytes % 0.30 % 0.60 % Eosinophils % 0.0 % 0.0 % Basophils % 0.0 % 0.2 % Basophils # 0.0 10^3/uL 0.0 10^3/uL Sodium Level 141 mmol/L 142 mmol/L 139 mmol/L Potassium Level 4.0 mmol/L 3.9 mmol/L 3.9 mmol/L Chloride Level 106.0 mmol/L 106.0 mmol/L 105.0 mmol/L Carbon Dioxide Level 25.2 mmol/L 26.2 mmol/L 26.8 mmol/L Anion Gap 13.8 13.7 11.1 Blood Urea Nitrogen 12 mg/dL 17 mg/dL 12 mg/dL Creatinine 0.65 mg/dL 0.54 mg/dL 0.56 mg/dL Estimated GFR () 124.8 154.6 148.2 Est GFR (CKD-EPI)(Non-Afr Qatari) 103.1 127.7 122.5 BUN/Creatinine Ratio 18.0 31.0 21.0 Glucose Level 98 mg/dL 92 mg/dL 87 mg/dL Calcium Level 8.6 mg/dL 8.4 mg/dL 8.8 mg/dL Total Bilirubin 0.5 mg/dL 0.5 mg/dL 0.5 mg/dL Aspartate Amino Transf (AST/SGOT) 42 U/L 40 U/L 36 U/L Alanine Aminotransferase (ALT/SGPT) 47 U/L 42 U/L 39 U/L Alkaline Phosphatase 47 U/L 43 U/L 43 U/L Total Protein 6.6 g/dL 6.6 g/dL 6.7 g/dL Albumin 2.6 g/dL 2.5 g/dL 2.5 g/dL Globulin 4.0 4.1 4.2 Albumin/Globulin Ratio 0.650 0.609 0.595 Serum HCG, Qualitative NEGATIVE Blood Gas Sample Site RT RADIAL ARTERY Blood Gas pH 7.459 Blood Gas PCO2 31.9 mmHg Blood Gas PO2 86.7 mmHg Blood Gas HCO3 22.1 mmol/L Blood Gas Base Excess -0.8 mmol/L Lucas Test POSITIVE Arterial Blood Oxygen Saturation 96.2 % Deoxyhemoglobin 3.8 % Carboxyhemoglobin 0.1 % Methemoglobin 0.1 % Total Hemoglobin 14.8 % Total Oxygen Concentration 20.0 % Blood Gas Temperature 37.0 Oxygen Delivery Method (LAB) BIPAP Blood Gas Vent Mode ST FiO2 80 % Total Carbon Dioxide 23.1 mmol/L Test 05/02/21 06:37 05/02/21 08:25 05/03/21 05:20 05/03/21 07:55 White Blood Count 7.6 10^3/uL 12.0 10^3/uL Red Blood Count 4.62 10^6/uL 4.71 10^6/uL Hemoglobin 13.6 g/dL 13.6 g/dL Hematocrit 40.6 % 41.1 % Mean Corpuscular Volume 87.9 fL 87.3 fL Mean Corpuscular Hemoglobin 29.4 pg 28.9 pg Mean Corpuscular Hemoglobin Concent 33.5 g/dL 33.1 g/dL Red Cell Distribution Width 12.0 % 11.9 % Platelet Count 268 10^3/uL 338 10^3/uL Mean Platelet Volume 10.5 fL 10.2 fL Neutrophils (%) (Auto) 82.9 % 83.2 % Lymphocytes (%) (Auto) 11.7 % 10.3 % Monocytes (%) (Auto) 5.4 % 5.1 % Neutrophils # (Auto) 6.3 10^3/uL 10.0 10^3/uL Lymphocytes # (Auto) 0.89 10^3/uL1 1.24 10^3/uL1 Monocytes # (Auto) 0.4 10^3/uL 0.6 10^3/uL Absolute Immature Granulocyte (auto 0.12 10^3 u/L 0.14 10^3 u/L Absolute Eosinophils (auto) 0.0 10^3/uL 0.0 10^3/uL Immature Granulocytes % 1.60 % 1.20 % Eosinophils % 0.0 % 0.1 % Basophils % 0.0 % 0.1 % Basophils # 0.0 10^3/uL 0.0 10^3/uL Sodium Level 140 mmol/L 140 mmol/L Potassium Level 4.7 mmol/L 4.3 mmol/L Chloride Level 104.0 mmol/L 103.0 mmol/L Carbon Dioxide Level 27.6 mmol/L 28.1 mmol/L Anion Gap 13.1 13.2 Blood Urea Nitrogen 14 mg/dL 18 mg/dL Creatinine 0.62 mg/dL 0.65 mg/dL Estimated GFR () 131.8 124.8 Est GFR (CKD-EPI)(Non-Afr Qatari) 108.9 103.1 BUN/Creatinine Ratio 22.0 27.0 Glucose Level 121 mg/dL 107 mg/dL Calcium Level 8.8 mg/dL 8.9 mg/dL Total Bilirubin 0.4 mg/dL 0.6 mg/dL Aspartate Amino Transf (AST/SGOT) 26 U/L 26 U/L Alanine Aminotransferase (ALT/SGPT) 37 U/L 31 U/L Alkaline Phosphatase 42 U/L 41 U/L Total Protein 6.7 g/dL 6.8 g/dL Albumin 2.5 g/dL 2.6 g/dL Globulin 4.2 4.2 Albumin/Globulin Ratio 0.595 0.619 Blood Gas Sample Site RT RADIAL ARTERY LEFT RADIAL ARTERY Blood Gas pH 7.405 7.416 Blood Gas PCO2 41.1 mmHg 37.1 mmHg Blood Gas PO2 82.5 mmHg 149.3 mmHg Blood Gas HCO3 25.2 mmol/L 23.3 mmol/L Blood Gas Base Excess 0.4 mmol/L -0.8 mmol/L Lucas Test POSITIVE POSITIVE Arterial Blood Oxygen Saturation 95.5 % 98.7 % Deoxyhemoglobin 4.5 % 1.3 % Carboxyhemoglobin 0.6 % 0.4 % Methemoglobin 0.3 % 0.5 % Total Hemoglobin 14.6 % 14.5 % Total Oxygen Concentration 19.5 % 20.2 % Blood Gas Temperature 37 37.00 Oxygen Delivery Method (LAB) BIPAP15/7 BP 15/7 FiO2 99 % 100 % Total Carbon Dioxide 26.4 mmol/L 24.4 mmol/L Blood Gas Vent Mode S/T Test 05/03/21 10:10 05/04/21 10:08 05/05/21 05:08 05/06/21 04:30 D-Dimer 1.21 mg/L 5.32 mg/L Ferritin 697 ng/mL 724 ng/mL Lactate Dehydrogenase 329 U/L White Blood Count 17.0 10^3/uL 14.0 10^3/uL 15.9 10^3/uL Red Blood Count 4.46 10^6/uL 4.70 10^6/uL 4.43 10^6/uL Hemoglobin 12.9 g/dL 13.7 g/dL 13.2 g/dL Hematocrit 38.9 % 41.0 % 39.1 % Mean Corpuscular Volume 87.2 fL 87.2 fL 88.3 fL Mean Corpuscular Hemoglobin 28.9 pg 29.1 pg 29.8 pg Mean Corpuscular Hemoglobin Concent 33.2 g/dL 33.4 g/dL 33.8 g/dL Red Cell Distribution Width 11.8 % 11.9 % 12.0 % Platelet Count 334 10^3/uL 309 10^3/uL 290 10^3/uL Mean Platelet Volume 10.0 fL 9.8 fL 9.8 fL Neutrophils (%) (Auto) 90.6 % 88.5 % 87.7 % Lymphocytes (%) (Auto) 4.4 % 7.5 % 8.3 % Monocytes (%) (Auto) 3.9 % 3.3 % 3.5 % Neutrophils # (Auto) 15.4 10^3/uL 12.3 10^3/uL 13.9 10^3/uL Lymphocytes # (Auto) 0.75 10^3/uL1 1.05 10^3/uL1 1.32 10^3/uL1 Monocytes # (Auto) 0.7 10^3/uL 0.5 10^3/uL 0.6 10^3/uL Absolute Immature Granulocyte (auto 0.16 10^3 u/L 0.19 10^3 u/L 0.16 10^3 u/L Absolute Eosinophils (auto) 0.0 10^3/uL 0.1 10^3/uL 0.1 10^3/uL Immature Granulocytes % 0.90 % 1.40 % 1.00 % Eosinophils % 0.1 % 0.6 % 0.4 % Basophils % 0.1 % 0.1 % 0.1 % Basophils # 0.0 10^3/uL 0.0 10^3/uL 0.0 10^3/uL Sodium Level 135 mmol/L 137 mmol/L 138 mmol/L Potassium Level 3.9 mmol/L 3.6 mmol/L 3.8 mmol/L Chloride Level 102.0 mmol/L 102.0 mmol/L 103.0 mmol/L Carbon Dioxide Level 25.7 mmol/L 26.8 mmol/L 27.1 mmol/L Anion Gap 11.2 11.8 11.7 Blood Urea Nitrogen 20 mg/dL 13 mg/dL 14 mg/dL Creatinine 0.75 mg/dL 0.62 mg/dL 0.66 mg/dL Estimated GFR () 105.8 131.8 122.6 Est GFR (CKD-EPI)(Non-Afr Q[place]) 87.4 108.9 101.3 BUN/Creatinine Ratio 26.0 20.0 21.0 Glucose Level 135 mg/dL 86 mg/dL 96 mg/dL Calcium Level 8.8 mg/dL 8.8 mg/dL 8.8 mg/dL Total Bilirubin 0.8 mg/dL 0.8 mg/dL 0.9 mg/dL Aspartate Amino Transf (AST/SGOT) 33 U/L 35 U/L 30 U/L Alanine Aminotransferase (ALT/SGPT) 34 U/L 34 U/L 39 U/L Alkaline Phosphatase 43 U/L 41 U/L 49 U/L Total Protein 6.8 g/dL 6.7 g/dL 6.9 g/dL Albumin 2.5 g/dL 2.4 g/dL 2.4 g/dL Globulin 4.3 4.3 4.5 Albumin/Globulin Ratio 0.581 0.558 0.533 Test 05/06/21 07:27 05/06/21 19:40 05/06/21 21:55 05/07/21 04:13 Blood Gas Sample Site RT BRACIAL ARTERY LEFT RADIAL ARTERY RT RADIAL ARTERY Blood Gas pH 7.452 7.478 7.473 Blood Gas PCO2 35.8 mmHg 40.1 mmHg 36.9 mmHg Blood Gas PO2 45.9 mmHg 54.5 mmHg 38.1 mmHg Blood Gas HCO3 24.4 mmol/L 29.1 mmol/L 26.4 mmol/L Blood Gas Base Excess 0.8 mmol/L 5.2 mmol/L 2.9 mmol/L Lucas Test N/A POSITIVE POSITIVE Arterial Blood Oxygen Saturation 82.3 % 87.3 % 71.2 % Deoxyhemoglobin 17.6 % 12.5 % 28.5 % Carboxyhemoglobin 0.2 % 0.9 % 0.7 % Methemoglobin 0.2 % 0.4 % 0.4 % Total Hemoglobin 13.5 % 13.5 % 13.2 % Total Oxygen Concentration 15.5 % 16.3 % 13.0 % Oxygen Delivery Method (LAB) CF 50LPM BIPAP 15/7 VENT FiO2 100 % 100 % 100 % Total Carbon Dioxide 25.5 mmol/L 30.3 mmol/L 27.6 mmol/L Blood Gas Temperature 37 37 Blood Gas Vent Mode AC Blood Gas Vent Rate 14 Blood Gas Tidal Volume 400 ML Blood Gas PEEP 12 CMH2O White Blood Count 16.3 10^3/uL Red Blood Count 4.35 10^6/uL Hemoglobin 12.8 g/dL Hematocrit 38.4 % Mean Corpuscular Volume 88.3 fL Mean Corpuscular Hemoglobin 29.4 pg Mean Corpuscular Hemoglobin Concent 33.3 g/dL Red Cell Distribution Width 12.0 % Platelet Count 268 10^3/uL Mean Platelet Volume 9.9 fL Neutrophils (%) (Auto) 89.4 % Lymphocytes (%) (Auto) 6.1 % Monocytes (%) (Auto) 4.3 % Neutrophils # (Auto) 14.6 10^3/uL Lymphocytes # (Auto) 0.99 10^3/uL1 Monocytes # (Auto) 0.7 10^3/uL Absolute Immature Granulocyte (auto 0.14 10^3 u/L Absolute Eosinophils (auto) 0.0 10^3/uL Immature Granulocytes % 0.90 % Eosinophils % 0.1 % Basophils % 0.1 % Basophils # 0.0 10^3/uL Sodium Level 141 mmol/L Potassium Level 4.3 mmol/L Chloride Level 105.0 mmol/L Carbon Dioxide Level 29.2 mmol/L Anion Gap 11.1 Blood Urea Nitrogen 15 mg/dL Creatinine 0.68 mg/dL Estimated GFR () 118.5 Est GFR (CKD-EPI)(Non-Afr Qat[place]) 97.9 BUN/Creatinine Ratio 22.0 Glucose Level 108 mg/dL Calcium Level 9.0 mg/dL Total Bilirubin 0.7 mg/dL Aspartate Amino Transf (AST/SGOT) 27 U/L Alanine Aminotransferase (ALT/SGPT) 39 U/L Alkaline Phosphatase 50 U/L Total Protein 6.8 g/dL Albumin 2.2 g/dL Globulin 4.6 Albumin/Globulin Ratio 0.478 Procalcitonin 0.08 ng/mL Test 05/07/21 05:02 05/07/21 06:35 05/07/21 18:09 05/08/21 00:56 Differential Total Cells Counted 100 #CELLS Segmented Neutrophils 85 % Lymphocytes 12 % Monocytes 3 % Platelet Estimate ADEQUATE Platelet Morphology NORMAL Blood Gas Sample Site RT RADIAL ARTERY Blood Gas pH 7.338 Blood Gas PCO2 48.1 mmHg Blood Gas PO2 51.4 mmHg Blood Gas HCO3 25.3 mmol/L Blood Gas Base Excess -1.0 mmol/L Lucas Test POSITIVE Arterial Blood Oxygen Saturation 82.7 % Deoxyhemoglobin 17.2 % Carboxyhemoglobin 0.4 % Methemoglobin 0.1 % Total Hemoglobin 14.5 % Total Oxygen Concentration 16.7 % Blood Gas Temperature 37 Oxygen Delivery Method (LAB) VENT Blood Gas Vent Mode AC Blood Gas Vent Rate 14 FiO2 100 % Blood Gas Tidal Volume 400 ML Blood Gas PEEP 12 CMH2O Total Carbon Dioxide 26.7 mmol/L Bedside Glucose 157 147 Test 05/08/21 04:28 05/08/21 05:50 05/08/21 17:50 05/08/21 23:51 White Blood Count 17.7 10^3/uL Red Blood Count 4.52 10^6/uL Hemoglobin 13.2 g/dL Hematocrit 41.6 % Mean Corpuscular Volume 92.0 fL Mean Corpuscular Hemoglobin 29.2 pg Mean Corpuscular Hemoglobin Concent 31.7 g/dL Red Cell Distribution Width 12.5 % Platelet Count 291 10^3/uL Mean Platelet Volume 10.2 fL Neutrophils (%) (Auto) 93.7 % Lymphocytes (%) (Auto) 4.5 % Monocytes (%) (Auto) 1.8 % Neutrophils # (Auto) 16.6 10^3/uL Lymphocytes # (Auto) 0.79 10^3/uL1 Monocytes # (Auto) 0.3 10^3/uL Absolute Immature Granulocyte (auto 0.11 10^3 u/L Absolute Eosinophils (auto) 0.0 10^3/uL Immature Granulocytes % 0.60 % Eosinophils % 0.0 % Basophils % 0.0 % Basophils # 0.0 10^3/uL Sodium Level 147 mmol/L Potassium Level 4.1 mmol/L Chloride Level 109.0 mmol/L Carbon Dioxide Level 30.6 mmol/L Anion Gap 11.5 Blood Urea Nitrogen 18 mg/dL Creatinine 0.65 mg/dL Estimated GFR () 124.8 Est GFR (CKD-EPI)(Non-Afr Qat[place]) 103.1 BUN/Creatinine Ratio 27.0 Glucose Level 145 mg/dL Calcium Level 9.2 mg/dL Total Bilirubin 0.6 mg/dL Aspartate Amino Transf (AST/SGOT) 41 U/L Alanine Aminotransferase (ALT/SGPT) 68 U/L Alkaline Phosphatase 67 U/L Total Protein 7.1 g/dL Albumin 2.3 g/dL Globulin 4.8 Albumin/Globulin Ratio 0.479 Blood Gas Sample Site LEFT RADIAL ARTERY Blood Gas pH 7.365 Blood Gas PCO2 53.4 mmHg Blood Gas PO2 48.1 mmHg Blood Gas HCO3 29.8 mmol/L Blood Gas Base Excess 3.1 mmol/L Lucas Test POSITIVE Arterial Blood Oxygen Saturation 79.8 % Deoxyhemoglobin 20.0 % Carboxyhemoglobin 0.6 % Methemoglobin 0.4 % Total Hemoglobin 15.4 % Total Oxygen Concentration 17.1 % FiO2 100 % Blood Gas PEEP 12.0 CMH2O Total Carbon Dioxide 31.5 mmol/L Bedside Glucose 142 131 Test 05/09/21 04:20 05/09/21 07:35 05/09/21 18:10 05/09/21 20:10 White Blood Count 22.5 10^3/uL Red Blood Count 4.39 10^6/uL Hemoglobin 13.0 g/dL Hematocrit 40.7 % Mean Corpuscular Volume 92.7 fL Mean Corpuscular Hemoglobin 29.6 pg Mean Corpuscular Hemoglobin Concent 31.9 g/dL Red Cell Distribution Width 12.6 % Platelet Count 330 10^3/uL Mean Platelet Volume 10.1 fL Neutrophils (%) (Auto) 92.6 % Lymphocytes (%) (Auto) 4.1 % Monocytes (%) (Auto) 3.3 % Neutrophils # (Auto) 20.8 10^3/uL Lymphocytes # (Auto) 0.92 10^3/uL1 Monocytes # (Auto) 0.8 10^3/uL Absolute Immature Granulocyte (auto 0.10 10^3 u/L Absolute Eosinophils (auto) 0.0 10^3/uL Immature Granulocytes % 0.40 % Eosinophils % 0.0 % Basophils % 0.0 % Basophils # 0.0 10^3/uL Sodium Level 148 mmol/L Potassium Level 4.2 mmol/L Chloride Level 109.0 mmol/L Carbon Dioxide Level 30.9 mmol/L Anion Gap 12.3 Blood Urea Nitrogen 18 mg/dL Creatinine 0.65 mg/dL Estimated GFR () 124.8 Est GFR (CKD-EPI)(Non-Afr Q[place]) 103.1 BUN/Creatinine Ratio 27.0 Glucose Level 142 mg/dL Calcium Level 8.6 mg/dL Total Bilirubin 0.8 mg/dL Aspartate Amino Transf (AST/SGOT) 38 U/L Alanine Aminotransferase (ALT/SGPT) 55 U/L Alkaline Phosphatase 70 U/L Total Protein 6.9 g/dL Albumin 2.1 g/dL Globulin 4.8 Albumin/Globulin Ratio 0.437 Procalcitonin 0.06 ng/mL Blood Gas Sample Site RT BRACIAL ARTERY RT BRACIAL ARTERY Blood Gas pH 7.387 7.426 Blood Gas PCO2 48.3 mmHg 46.7 mmHg Blood Gas PO2 57.0 mmHg 49.5 mmHg Blood Gas HCO3 28.4 mmol/L 30.0 mmol/L Blood Gas Base Excess 2.6 mmol/L 4.8 mmol/L Lucas Test POSITIVE POSITIVE Arterial Blood Oxygen Saturation 88.1 % 83.6 % Deoxyhemoglobin 11.9 % 16.2 % Carboxyhemoglobin 0.1 % 0.9 % Methemoglobin 0.1 % 0.5 % Total Hemoglobin 13.6 % 13.9 % Total Oxygen Concentration 16.8 % 16.1 % Blood Gas Temperature 37 37 Oxygen Delivery Method (LAB) VENT VENT Blood Gas Vent Mode AC AC Blood Gas Vent Rate 14 22 FiO2 100 % 100 % Blood Gas Tidal Volume 400 ML 320 ML Blood Gas PEEP 12 CMH2O 12 CMH2O Total Carbon Dioxide 29.9 mmol/L 31.5 mmol/L Bedside Glucose 118 Test 05/09/21 23:58 05/10/21 05:00 05/10/21 05:20 05/10/21 05:44 Bedside Glucose 113 Blood Gas Sample Site LEFT RADIAL ARTERY Blood Gas pH 7.365 Blood Gas PCO2 56.9 mmHg Blood Gas PO2 54.0 mmHg Blood Gas HCO3 31.8 mmol/L Blood Gas Base Excess 5.0 mmol/L Lucas Test POSITIVE Arterial Blood Oxygen Saturation 84.6 % Deoxyhemoglobin 15.2 % Carboxyhemoglobin 0.7 % Methemoglobin 0.3 % Total Hemoglobin 12.6 % Total Oxygen Concentration 14.8 % Blood Gas Temperature 37.0 Oxygen Delivery Method (LAB) VENTILATOR Blood Gas Vent Mode AC+ Blood Gas Vent Rate 28 FiO2 100 % Blood Gas Tidal Volume 320 ML Blood Gas PEEP 14.0 CMH2O Total Carbon Dioxide 33.5 mmol/L White Blood Count 13.9 10^3/uL Red Blood Count 4.20 10^6/uL Hemoglobin 12.4 g/dL Hematocrit 39.1 % Mean Corpuscular Volume 93.1 fL Mean Corpuscular Hemoglobin 29.5 pg Mean Corpuscular Hemoglobin Concent 31.7 g/dL Red Cell Distribution Width 12.4 % Platelet Count 201 10^3/uL Mean Platelet Volume 10.3 fL Neutrophils (%) (Auto) 93.0 % Lymphocytes (%) (Auto) 4.7 % Monocytes (%) (Auto) 2.3 % Neutrophils # (Auto) 13.0 10^3/uL Lymphocytes # (Auto) 0.65 10^3/uL1 Monocytes # (Auto) 0.3 10^3/uL Absolute Immature Granulocyte (auto 0.05 10^3 u/L Absolute Eosinophils (auto) 0.0 10^3/uL Immature Granulocytes % 0.40 % Eosinophils % 0.0 % Basophils % 0.0 % Basophils # 0.0 10^3/uL Sodium Level 143 mmol/L Potassium Level 4.2 mmol/L Chloride Level 107.0 mmol/L Carbon Dioxide Level 31.5 mmol/L Anion Gap 8.7 Blood Urea Nitrogen 14 mg/dL Creatinine 0.51 mg/dL Estimated GFR () 165.1 Est GFR (CKD-EPI)(Non-Afr Qat[place]) 136.5 BUN/Creatinine Ratio 27.0 Glucose Level 146 mg/dL Calcium Level 8.7 mg/dL Total Bilirubin 0.6 mg/dL Aspartate Amino Transf (AST/SGOT) 35 U/L Alanine Aminotransferase (ALT/SGPT) 56 U/L Alkaline Phosphatase 61 U/L Total Protein 6.3 g/dL Albumin 2.1 g/dL Globulin 4.2 Albumin/Globulin Ratio 0.500 Triglycerides Level 207 mg/dL Segmented Neutrophils 98 % Lymphocytes 1 % Monocytes 1 % Platelet Estimate ADEQUATE Platelet Morphology NORMAL Test 05/10/21 12:40 05/10/21 17:57 05/11/21 00:01 05/11/21 05:20 Bedside Glucose 136 135 120 White Blood Count 15.3 10^3/uL Red Blood Count 4.32 10^6/uL Hemoglobin 12.8 g/dL Hematocrit 39.8 % Mean Corpuscular Volume 92.1 fL Mean Corpuscular Hemoglobin 29.6 pg Mean Corpuscular Hemoglobin Concent 32.2 g/dL Red Cell Distribution Width 12.2 % Platelet Count 222 10^3/uL Mean Platelet Volume 10.7 fL Neutrophils (%) (Auto) 93.0 % Lymphocytes (%) (Auto) 4.0 % Monocytes (%) (Auto) 3.0 % Neutrophils # (Auto) 14.3 10^3/uL Lymphocytes # (Auto) 0.61 10^3/uL1 Monocytes # (Auto) 0.5 10^3/uL Absolute Immature Granulocyte (auto 0.06 10^3 u/L Absolute Eosinophils (auto) 0.0 10^3/uL Immature Granulocytes % 0.40 % Eosinophils % 0.0 % Basophils % 0.0 % Basophils # 0.0 10^3/uL Sodium Level 145 mmol/L Potassium Level 3.6 mmol/L Chloride Level 105.0 mmol/L Carbon Dioxide Level 35.6 mmol/L Anion Gap 8.0 Blood Urea Nitrogen 18 mg/dL Creatinine 0.59 mg/dL Estimated GFR () 139.6 Est GFR (CKD-EPI)(Non-Afr Q[place]) 115.3 BUN/Creatinine Ratio 30.0 Glucose Level 129 mg/dL Calcium Level 8.7 mg/dL Total Bilirubin 0.6 mg/dL Aspartate Amino Transf (AST/SGOT) 37 U/L Alanine Aminotransferase (ALT/SGPT) 54 U/L Alkaline Phosphatase 78 U/L Total Protein 6.5 g/dL Albumin 2.2 g/dL Globulin 4.3 Albumin/Globulin Ratio 0.511 Test 05/11/21 06:03 05/11/21 08:10 05/11/21 12:16 05/11/21 15:51 Segmented Neutrophils 97 % Lymphocytes 1 % Monocytes 2 % Platelet Estimate ADEQUATE Platelet Morphology NORMAL Blood Gas Sample Site LEFT RADIAL ARTERY Blood Gas pH 7.399 Blood Gas PCO2 54.2 mmHg Blood Gas PO2 53.9 mmHg Blood Gas HCO3 32.7 mmol/L Blood Gas Base Excess 6.4 mmol/L Lucas Test POSITIVE Arterial Blood Oxygen Saturation 85.4 % Deoxyhemoglobin 14.5 % Carboxyhemoglobin 0.3 % Methemoglobin 0.2 % Total Hemoglobin 13.5 % Total Oxygen Concentration 16.1 % Blood Gas Temperature 37 Oxygen Delivery Method (LAB) VENTILATOR Blood Gas Vent Mode AC VC+ Blood Gas Vent Rate 26 FiO2 100 % Blood Gas Tidal Volume 320 ML Blood Gas PEEP 14.0 CMH2O Total Carbon Dioxide 34.4 mmol/L Bedside Glucose 114 Urine Collection Type CATH Urine Color YELLOW Urine Appearance CLEAR Urine Bilirubin SMALL Urine Ictotest NEGATIVE Urine Ketones NEGATIVE Urine Specific [place] >=1.030 Urine pH 6.0 Urine Protein TRACE Urine Urobilinogen >=8.0 E.U./dL Urine Nitrate NEGATIVE Urine Leukocyte Esterase NEGATIVE Urine Glucose (Auto)(UA) NEGATIVE Urine Blood NEGATIVE Urine RBC 0-2 RBC/HPF Urine WBC 2-5 WBC/HPF Urine Squamous Epithelial Cells FEW #/HPF Urine Bacteria RARE Test 05/11/21 18:13 05/12/21 03:04 05/12/21 05:00 05/12/21 05:10 Bedside Glucose 119 Blood Gas Sample Site RT RADIAL ARTERY RT RADIAL ARTERY Blood Gas pH 7.232 7.370 Blood Gas PCO2 103.1 mmHg 71.8 mmHg Blood Gas PO2 64.8 mmHg 58.0 mmHg Blood Gas HCO3 42.4 mmol/L 40.6 mmol/L Blood Gas Base Excess 10.7 mmol/L 11.8 mmol/L Lucas Test POSITIVE POSITIVE Arterial Blood Oxygen Saturation 86.7 % 84.5 % Deoxyhemoglobin 13.1 % 15.5 % Carboxyhemoglobin 0.8 % 0.2 % Methemoglobin 0.5 % 0.1 % Total Hemoglobin 13.2 % 13.7 % Total Oxygen Concentration 15.9 % 16.2 % Oxygen Delivery Method (LAB) VENTILATOR VENTILATOR Blood Gas Vent Mode AC+ AC+ Blood Gas Vent Rate 26 32 FiO2 100 % 100 % Blood Gas Tidal Volume 320 ML 320 ML Blood Gas PEEP 14.0 CMH2O 14.0 CMH2O Total Carbon Dioxide 45.6 mmol/L 42.8 mmol/L Blood Gas Temperature 37.0 White Blood Count 13.9 10^3/uL Red Blood Count 4.46 10^6/uL Hemoglobin 12.9 g/dL Hematocrit 41.6 % Mean Corpuscular Volume 93.3 fL Mean Corpuscular Hemoglobin 28.9 pg Mean Corpuscular Hemoglobin Concent 31.0 g/dL Red Cell Distribution Width 12.2 % Platelet Count 197 10^3/uL Mean Platelet Volume 11.1 fL Neutrophils (%) (Auto) 94.4 % Lymphocytes (%) (Auto) 3.0 % Monocytes (%) (Auto) 1.8 % Neutrophils # (Auto) 13.1 10^3/uL Lymphocytes # (Auto) 0.41 10^3/uL1 Monocytes # (Auto) 0.3 10^3/uL Absolute Immature Granulocyte (auto 0.10 10^3 u/L Absolute Eosinophils (auto) 0.0 10^3/uL Immature Granulocytes % 0.70 % Eosinophils % 0.1 % Basophils % 0.0 % Basophils # 0.0 10^3/uL Prothrombin Time 10.8 SEC Prothrombin Time INR (Non-Therap) 1.0 Activated Partial Thromboplast Time 24.7 SEC Sodium Level 148 mmol/L Potassium Level 3.7 mmol/L Chloride Level 105.0 mmol/L Carbon Dioxide Level 39.0 mmol/L Anion Gap 7.7 Blood Urea Nitrogen 22 mg/dL Creatinine 0.51 mg/dL Estimated GFR () 165.1 Est GFR (CKD-EPI)(Non-Afr Q[place]) 136.5 BUN/Creatinine Ratio 43.0 Glucose Level 156 mg/dL Hemoglobin A1c 6.5 % Calcium Level 8.7 mg/dL Phosphorus Level 4.3 mg/dL Magnesium Level 2.3 mg/dL Total Bilirubin 0.5 mg/dL Aspartate Amino Transf (AST/SGOT) 38 U/L Alanine Aminotransferase (ALT/SGPT) 60 U/L Alkaline Phosphatase 83 U/L Total Protein 6.7 g/dL Albumin 2.0 g/dL Globulin 4.7 Albumin/Globulin Ratio 0.425 Triglycerides Level 261 mg/dL Current Medications Medications (Trade) Dose Ordered Sig/Davon Route PRN Reason Start Time Stop Time Status Last Admin Dose Admin Remdesivir 200 mg/ Sodium Chloride 140 ml @ 120.69 mls/ hr OT STAT IV 04/28/21 19:53 04/29/21 08:10 DC 04/28/21 19:53 Remdesivir 100 mg/ Sodium Chloride 120 ml @ 111.111 mls/hr Q24HRS IV 04/29/21 20:00 05/02/21 21:05 DC 05/02/21 20:45 Famotidine (Pepcid) 20 mg BID PO 04/28/21 21:00 05/07/21 09:31 DC 05/06/21 08:14 Sucralfate (Carafate) 1 gm ACHS PO 04/28/21 21:00 05/28/21 20:59 05/09/21 20:50 Enoxaparin Sodium (Lovenox) 40 mg Q24HRS SQ 04/28/21 20:00 05/06/21 08:06 DC 05/05/21 21:00 Sucralfate (Carafate) 1 gm STK-MED ONCE PO 04/28/21 20:56 04/28/21 20:56 DC Lorazepam (Ativan) 1 mg Q4HR PRN IV ANXIETY 04/29/21 00:00 05/12/21 09:13 DC 05/06/21 18:45 Lorazepam (Ativan) 0.5 mg Q4HR PRN IV ANXIETY 04/29/21 00:00 05/06/21 09:00 DC Fentanyl Citrate (Sublimaze) 50 mcg STK-MED ONCE .ROUTE 04/29/21 11:37 04/29/21 11:38 DC Fentanyl Citrate (Sublimaze) 12.5 mcg OT ONCE IV 04/29/21 15:00 04/29/21 15:06 DC 04/29/21 13:35 Acetaminophen (Tylenol) 650 mg Q6HR PRN PO PAIN 1 - 3 04/30/21 18:00 05/02/21 18:00 DC 05/01/21 06:28 Dexmedetomidine HCl 200 mcg/ Sodium Chloride 50 ml @ 0 mls/hr IV 05/01/21 10:30 05/01/21 11:28 DC Sodium Chloride 250 ml @ ud STK-MED ONCE .ROUTE 05/01/21 20:40 05/01/21 20:40 DC Acetaminophen (Tylenol) 650 mg Q6HR PRN PO PAIN 1 - 3 05/02/21 20:30 05/08/21 18:01 DC 05/04/21 21:15 Bisacodyl (Dulcolax Ec Tablet) 5 mg STAT STAT PO 05/03/21 13:45 05/03/21 19:05 DC 05/03/21 14:36 Docusate Sodium (Colace) 100 mg BID PO 05/05/21 09:00 05/07/21 09:30 DC 05/06/21 08:14 Lorazepam (Ativan) 2 mg STK-MED ONCE .ROUTE 05/05/21 02:31 05/05/21 02:31 DC Lorazepam (Ativan) 2 mg STK-MED ONCE .ROUTE 05/05/21 03:46 05/05/21 03:47 DC Furosemide (Lasix) 20 mg OT ONCE IV 05/05/21 11:00 05/05/21 11:01 DC 05/05/21 11:20 Lorazepam (Ativan) 2 mg STK-MED ONCE .ROUTE 05/05/21 20:56 05/05/21 20:56 DC Enoxaparin Sodium (Lovenox) 100 mg Q12H SQ 05/06/21 08:30 06/05/21 08:29 05/12/21 08:17 Furosemide (Lasix) 20 mg STAT STAT IV 05/06/21 08:48 05/06/21 09:00 DC 05/06/21 08:48 Insulin Human Regular (Humulin R) 1 unit STK-MED ONCE .ROUTE 05/06/21 19:13 05/06/21 19:14 DC Propofol (Diprivan) 1,000 mg PRN PRN IV SEDATION 05/06/21 20:30 05/08/21 11:39 DC 05/08/21 04:00 Propofol 100 ml @ ud STK-MED ONCE IV 05/06/21 20:19 05/06/21 20:19 DC Vecuronium [place] (Norcuron) 10 mg STK-MED ONCE .ROUTE 05/06/21 22:24 05/06/21 22:24 DC Vecuronium [place] (Norcuron) 10 mg Q6HR PRN IV SHORTNESS OF BREATH 05/06/21 23:00 05/07/21 00:34 DC Vecuronium [place] (Norcuron) 10 mg Q4 PRN IV SHORTNESS OF BREATH 05/07/21 00:30 05/12/21 00:00 DC 05/11/21 20:00 Vecuronium [place] (Norcuron) 10 mg STK-MED ONCE .ROUTE 05/07/21 00:20 05/07/21 00:34 DC Propofol 100 ml @ ud STK-MED ONCE IV 05/07/21 01:53 05/07/21 01:53 DC Norepinephrine Bitartrate 8 mg/ Sodium Chloride 250 ml @ 0 mls/hr DAILY IV 05/07/21 09:00 05/10/21 16:46 DC 05/09/21 09:00 Fentanyl Citrate (Sublimaze) 100 mcg Q1HR IV 05/07/21 04:00 05/07/21 09:58 DC Piperacillin Sod/ Tazobactam Sod 4.5 gm/Sodium Chloride 100 ml @ 100 mls/hr Q6H IV 05/07/21 04:00 05/12/21 09:15 DC 05/11/21 22:00 Norepinephrine Bitartrate (Levophed) 4 mg STK-MED ONCE .ROUTE 05/07/21 04:38 05/07/21 04:38 DC Sodium Chloride 250 ml @ ud STK-MED ONCE .ROUTE 05/07/21 04:38 05/07/21 04:38 DC Fentanyl Citrate (Sublimaze) 100 mcg Q1HR PRN IV PAIN 7 - 10 05/07/21 06:30 05/12/21 09:13 DC 05/07/21 06:41 Fentanyl Citrate 2000 mcg/Sodium Chloride 200 ml @ 0 mls/hr IV 05/07/21 10:00 05/07/21 17:01 DC 05/07/21 10:30 Famotidine (Pepcid) 20 mg BID IV 05/07/21 09:30 06/06/21 09:29 05/12/21 08:17 Docusate Sodium (Colace) 100 mg BID NG 05/07/21 09:30 06/06/21 09:29 05/10/21 09:00 Propofol (Diprivan) 200 mg STK-MED ONCE IV 05/07/21 08:00 05/07/21 11:57 DC Succinylcholine Chloride (Quelicin) 8 mg STK-MED ONCE IV 05/07/21 08:00 05/07/21 11:57 DC Vecuronium [place] (Norcuron) 10 mg STK-MED ONCE IV 05/07/21 08:00 05/07/21 11:57 DC Propofol 100 ml @ ud STK-MED ONCE IV 05/07/21 14:49 05/07/21 14:50 DC Fentanyl Citrate 5000 mcg/Sodium Chloride 500 ml @ 0 mls/hr IV 05/07/21 18:00 06/06/21 17:59 05/10/21 11:21 Propofol 100 ml @ ud STK-MED ONCE IV 05/07/21 19:08 05/07/21 19:08 DC Propofol 100 ml @ STK-MED ONCE IV 05/07/21 23:47 05/07/21 23:47 DC Propofol 100 ml @ ud STK-MED ONCE IV 05/08/21 03:45 05/08/21 03:46 DC Propofol 100 ml @ STK-MED ONCE IV 05/08/21 07:33 05/08/21 07:34 DC Propofol 100 ml @ STK-MED ONCE IV 05/08/21 11:27 05/08/21 11:27 DC Propofol 100 ml @ 27.6 mls/hr PRN PRN IV SEDATION 05/08/21 12:00 06/07/21 11:59 05/11/21 20:13 Acetaminophen (Tylenol) 650 mg Q6HR PRN RC FEVER 05/08/21 22:00 06/07/21 21:59 05/08/21 22:15 Midazolam HCl 50 mg/Sodium Chloride 50 ml @ 2 mls/hr ONCE IV 05/09/21 14:30 05/10/21 09:50 DC 05/09/21 14:30 Hydromorphone HCl (Dilaudid) 2 mg STK-MED ONCE .ROUTE 05/09/21 20:10 05/09/21 20:10 DC Hydromorphone HCl (Dilaudid) 0.5 mg Q4H PRN IV PAIN 7 - 10 05/09/21 20:00 06/08/21 19:59 05/11/21 21:00 Sodium Chloride 100 ml @ ud STK-MED ONCE IV 05/09/21 21:13 05/09/21 21:13 DC Midazolam HCl 100 mg/Sodium Chloride 100 ml @ 0 mls/hr ONCE IV 05/10/21 10:00 05/10/21 10:01 DC 05/10/21 10:55 Furosemide (Lasix) 20 mg BID IV 05/10/21 10:30 05/10/21 12:38 DC 05/10/21 10:55 Furosemide (Lasix) 20 mg STK-MED ONCE .ROUTE 05/10/21 10:48 05/10/21 10:49 DC Vecuronium [place] (Norcuron) 10 mg Q2H PRN IV ventilator dyssynchrony 05/10/21 11:30 06/09/21 11:29 05/12/21 09:15 Furosemide (Lasix) 20 mg BID IV 05/10/21 12:38 06/09/21 10:29 05/12/21 08:17 Norepinephrine Bitartrate 8 mg/ Sodium Chloride 250 ml @ 0 mls/hr DAILY IV 05/11/21 09:00 05/11/21 08:54 DC Midazolam HCl 100 mg/Sodium Chloride 100 ml @ 0 mls/hr IV 05/10/21 17:00 05/11/21 08:57 DC 05/11/21 01:39 Albuterol Sulfate (Ventolin Hfa) 200 inh STK-MED ONCE IH 05/10/21 22:44 05/10/21 22:45 DC Albuterol Sulfate (Ventolin Hfa) 2 inh OT ONCE IH 05/10/21 23:00 05/10/21 23:01 DC 05/10/21 23:15 Norepinephrine Bitartrate 8 mg/ Sodium Chloride 258 ml @ 0 mls/hr IV 05/11/21 08:00 06/10/21 07:59 05/11/21 10:16 Midazolam HCl 100 mg/Sodium Chloride 100 ml @ 0 mls/hr TITRATE IV 05/11/21 09:00 06/10/21 08:59 VTE VTE Risk Total Score: 5 VTE Risk Score VTE Risk: Score 0-1 = Low Risk (Aggressive mobilization; early ambulation; no VTE prophylaxis required) Score 2: Moderate Risk (Intermittent/Pneumatic Compression Device OR Lovenox/Heparin/Coumadin) Score 3-4: High Risk (Intermittent/Pneumatic Compression Device AND Lovenox/Heparin/Coumadin) Score > or =5: Highest Risk (Intermittent/Pneumatic Compression Device AND Lovenox/Heparin/Coumadin) Antico:Hep/LMWH/Coum/Xarelto: Yes Mechanical device ordered: Yes VTE VTE Present on Admission: No Currently receiving anticoagul: Yes VTE Risk Total Score: 5 Antico:Hep/LMWH/Coum/Xarelto: Yes Mechanical device ordered: Yes Assessment/Plan Assessment/Plan Problems: (1) Pneumonia due to COVID-19 virus Status: Acute ICD Code: U07.1 - COVID-19; J12.82 - Pneumonia due to coronavirus disease 2019 SNOMED: 447800304850411062 (2) Acute and chronic respiratory failure with hypoxia ICD Code: J96.21 - Acute and chronic respiratory failure with hypoxia SNOMED: 72587187, [id number] Plan This is a 35 year old woman with COVID pneumonia/ARDS. Plan: 1. cont mechanical vent support. increase PEEP to 16. 2. maintain PPlat < 30 3. cont proning per protocol 16:8 4. can d/c zosyn 5. start tube feeds per nutrition recommendations 6. cont sedation/paralytics 7. IV steroids 8. DVT/GI prophylaxis Plan reviewed with bedside team. Patient seen through remote audiovisual assessment through HIPAA compliant setup. All labs, flowsheets, and images reviewed Cumulative nonprocedural critical care time spent in directed patient care = 60min COURTNEY WINTERS MD May 12, 2021 12:07
--- NOTE | 2021-05-12 13:28 | DIET.OP ---
Nutrition Asmt/Malnutrit 2-17 Actual Date of Review: May 12, 2021 Nutritional Screening: Other (LOS) Diagnosis: covid pneumonia Pertinent Medical Hx/Surgical: none Subjective Information: pt remains intubated and sedated. Propofol at max rate providing 730 kcal. EN started - no kangaroo pumps and gravity feeds not working well, RN requesting bolus feed recommendations which were given. BG has been elevated the last 4 days. Triglycerides are elevated and trending up. Current Diet Order/Nutrition S: NPO Pertinent Meds Current Medications Medications (Trade) Dose Ordered Sig/Davon Route PRN Reason Start Time Stop Time Status Last Admin Dose Admin Remdesivir 200 mg/ Sodium Chloride 140 ml @ 120.69 mls/ hr OT STAT IV 04/28/21 19:53 04/29/21 08:10 DC 04/28/21 19:53 Remdesivir 100 mg/ Sodium Chloride 120 ml @ 111.111 mls/hr Q24HRS IV 04/29/21 20:00 05/02/21 21:05 DC 05/02/21 20:45 Famotidine (Pepcid) 20 mg BID PO 04/28/21 21:00 05/07/21 09:31 DC 05/06/21 08:14 Sucralfate (Carafate) 1 gm ACHS PO 04/28/21 21:00 05/28/21 20:59 05/09/21 20:50 Enoxaparin Sodium (Lovenox) 40 mg Q24HRS SQ 04/28/21 20:00 05/06/21 08:06 DC 05/05/21 21:00 Sucralfate (Carafate) 1 gm STK-MED ONCE PO 04/28/21 20:56 04/28/21 20:56 DC Lorazepam (Ativan) 1 mg Q4HR PRN IV ANXIETY 04/29/21 00:00 05/12/21 09:13 DC 05/06/21 18:45 Lorazepam (Ativan) 0.5 mg Q4HR PRN IV ANXIETY 04/29/21 00:00 05/06/21 09:00 DC Fentanyl Citrate (Sublimaze) 50 mcg STK-MED ONCE .ROUTE 04/29/21 11:37 04/29/21 11:38 DC Fentanyl Citrate (Sublimaze) 12.5 mcg OT ONCE IV 04/29/21 15:00 04/29/21 15:06 DC 04/29/21 13:35 Acetaminophen (Tylenol) 650 mg Q6HR PRN PO PAIN 1 - 3 04/30/21 18:00 05/02/21 18:00 DC 05/01/21 06:28 Dexmedetomidine HCl 200 mcg/ Sodium Chloride 50 ml @ 0 mls/hr IV 05/01/21 10:30 05/01/21 11:28 DC Sodium Chloride 250 ml @ ud STK-MED ONCE .ROUTE 05/01/21 20:40 05/01/21 20:40 DC Acetaminophen (Tylenol) 650 mg Q6HR PRN PO PAIN 1 - 3 05/02/21 20:30 05/08/21 18:01 DC 05/04/21 21:15 Bisacodyl (Dulcolax Ec Tablet) 5 mg STAT STAT PO 05/03/21 13:45 05/03/21 19:05 DC 05/03/21 14:36 Docusate Sodium (Colace) 100 mg BID PO 05/05/21 09:00 05/07/21 09:30 DC 05/06/21 08:14 Lorazepam (Ativan) 2 mg STK-MED ONCE .ROUTE 05/05/21 02:31 05/05/21 02:31 DC Lorazepam (Ativan) 2 mg STK-MED ONCE .ROUTE 05/05/21 03:46 05/05/21 03:47 DC Furosemide (Lasix) 20 mg OT ONCE IV 05/05/21 11:00 05/05/21 11:01 DC 05/05/21 11:20 Lorazepam (Ativan) 2 mg STK-MED ONCE .ROUTE 05/05/21 20:56 05/05/21 20:56 DC Enoxaparin Sodium (Lovenox) 100 mg Q12H SQ 05/06/21 08:30 06/05/21 08:29 05/12/21 08:17 Furosemide (Lasix) 20 mg STAT STAT IV 05/06/21 08:48 05/06/21 09:00 DC 05/06/21 08:48 Insulin Human Regular (Humulin R) 1 unit STK-MED ONCE .ROUTE 05/06/21 19:13 05/06/21 19:14 DC Propofol (Diprivan) 1,000 mg PRN PRN IV SEDATION 05/06/21 20:30 05/08/21 11:39 DC 05/08/21 04:00 Propofol 100 ml @ ud STK-MED ONCE IV 05/06/21 20:19 05/06/21 20:19 DC Vecuronium [place] (Norcuron) 10 mg STK-MED ONCE .ROUTE 05/06/21 22:24 05/06/21 22:24 DC Vecuronium [place] (Norcuron) 10 mg Q6HR PRN IV SHORTNESS OF BREATH 05/06/21 23:00 05/07/21 00:34 DC Vecuronium [place] (Norcuron) 10 mg Q4 PRN IV SHORTNESS OF BREATH 05/07/21 00:30 05/12/21 00:00 DC 05/11/21 20:00 Vecuronium [place] (Norcuron) 10 mg STK-MED ONCE .ROUTE 05/07/21 00:20 05/07/21 00:34 DC Propofol 100 ml @ ud STK-MED ONCE IV 05/07/21 01:53 05/07/21 01:53 DC Norepinephrine Bitartrate 8 mg/ Sodium Chloride 250 ml @ 0 mls/hr DAILY IV 05/07/21 09:00 05/10/21 16:46 DC 05/09/21 09:00 Fentanyl Citrate (Sublimaze) 100 mcg Q1HR IV 05/07/21 04:00 05/07/21 09:58 DC Piperacillin Sod/ Tazobactam Sod 4.5 gm/Sodium Chloride 100 ml @ 100 mls/hr Q6H IV 05/07/21 04:00 05/12/21 09:15 DC 05/11/21 22:00 Norepinephrine Bitartrate (Levophed) 4 mg STK-MED ONCE .ROUTE 05/07/21 04:38 05/07/21 04:38 DC Sodium Chloride 250 ml @ ud STK-MED ONCE .ROUTE 05/07/21 04:38 05/07/21 04:38 DC Fentanyl Citrate (Sublimaze) 100 mcg Q1HR PRN IV PAIN 7 - 10 05/07/21 06:30 05/12/21 09:13 DC 05/07/21 06:41 Fentanyl Citrate 2000 mcg/Sodium Chloride 200 ml @ 0 mls/hr IV 05/07/21 10:00 05/07/21 17:01 DC 05/07/21 10:30 Famotidine (Pepcid) 20 mg BID IV 05/07/21 09:30 06/06/21 09:29 05/12/21 08:17 Docusate Sodium (Colace) 100 mg BID NG 05/07/21 09:30 06/06/21 09:29 05/10/21 09:00 Propofol (Diprivan) 200 mg STK-MED ONCE IV 05/07/21 08:00 05/07/21 11:57 DC Succinylcholine Chloride (Quelicin) 8 mg STK-MED ONCE IV 05/07/21 08:00 05/07/21 11:57 DC Vecuronium [place] (Norcuron) 10 mg STK-MED ONCE IV 05/07/21 08:00 05/07/21 11:57 DC Propofol 100 ml @ ud STK-MED ONCE IV 05/07/21 14:49 05/07/21 14:50 DC Fentanyl Citrate 5000 mcg/Sodium Chloride 500 ml @ 0 mls/hr IV 05/07/21 18:00 06/06/21 17:59 05/10/21 11:21 Propofol 100 ml @ ud STK-MED ONCE IV 05/07/21 19:08 05/07/21 19:08 DC Propofol 100 ml @ ud STK-MED ONCE IV 05/07/21 23:47 05/07/21 23:47 DC Propofol 100 ml @ ud STK-MED ONCE IV 05/08/21 03:45 05/08/21 03:46 DC Propofol 100 ml @ ud STK-MED ONCE IV 05/08/21 07:33 05/08/21 07:34 DC Propofol 100 ml @ ud STK-MED ONCE IV 05/08/21 11:27 05/08/21 11:27 DC Propofol 100 ml @ 27.6 mls/hr PRN PRN IV SEDATION 05/08/21 12:00 06/07/21 11:59 05/11/21 20:13 Acetaminophen (Tylenol) 650 mg Q6HR PRN RC FEVER 05/08/21 22:00 06/07/21 21:59 05/08/21 22:15 Midazolam HCl 50 mg/Sodium Chloride 50 ml @ 2 mls/hr ONCE IV 05/09/21 14:30 05/10/21 09:50 DC 05/09/21 14:30 Hydromorphone HCl (Dilaudid) 2 mg STK-MED ONCE .ROUTE 05/09/21 20:10 05/09/21 20:10 DC Hydromorphone HCl (Dilaudid) 0.5 mg Q4H PRN IV PAIN 7 - 10 05/09/21 20:00 06/08/21 19:59 05/11/21 21:00 Sodium Chloride 100 ml @ ud STK-MED ONCE IV 05/09/21 21:13 05/09/21 21:13 DC Midazolam HCl 100 mg/Sodium Chloride 100 ml @ 0 mls/hr ONCE IV 05/10/21 10:00 05/10/21 10:01 DC 05/10/21 10:55 Furosemide (Lasix) 20 mg BID IV 05/10/21 10:30 05/10/21 12:38 DC 05/10/21 10:55 Furosemide (Lasix) 20 mg STK-MED ONCE .ROUTE 05/10/21 10:48 05/10/21 10:49 DC Vecuronium [place] (Norcuron) 10 mg Q2H PRN IV ventilator dyssynchrony 05/10/21 11:30 06/09/21 11:29 05/12/21 09:15 Furosemide (Lasix) 20 mg BID IV 05/10/21 12:38 06/09/21 10:29 05/12/21 08:17 Norepinephrine Bitartrate 8 mg/ Sodium Chloride 250 ml @ 0 mls/hr DAILY IV 05/11/21 09:00 05/11/21 08:54 DC Midazolam HCl 100 mg/Sodium Chloride 100 ml @ 0 mls/hr IV 05/10/21 17:00 05/11/21 08:57 DC 05/11/21 01:39 Albuterol Sulfate (Ventolin Hfa) 200 inh STK-MED ONCE IH 05/10/21 22:44 05/10/21 22:45 DC Albuterol Sulfate (Ventolin Hfa) 2 inh OT ONCE IH 05/10/21 23:00 05/10/21 23:01 DC 05/10/21 23:15 Norepinephrine Bitartrate 8 mg/ Sodium Chloride 258 ml @ 0 mls/hr IV 05/11/21 08:00 06/10/21 07:59 05/11/21 10:16 Midazolam HCl 100 mg/Sodium Chloride 100 ml @ 0 mls/hr TITRATE IV 05/11/21 09:00 06/10/21 08:59 Pertinent Labs Laboratory Tests Test 05/10/21 17:57 05/11/21 00:01 05/11/21 05:20 05/11/21 06:03 Bedside Glucose 135 120 White Blood Count 15.3 10^3/uL Red Blood Count 4.32 10^6/uL Hemoglobin 12.8 g/dL Hematocrit 39.8 % Mean Corpuscular Volume 92.1 fL Mean Corpuscular Hemoglobin 29.6 pg Mean Corpuscular Hemoglobin Concent 32.2 g/dL Red Cell Distribution Width 12.2 % Platelet Count 222 10^3/uL Mean Platelet Volume 10.7 fL Neutrophils (%) (Auto) 93.0 % Lymphocytes (%) (Auto) 4.0 % Monocytes (%) (Auto) 3.0 % Neutrophils # (Auto) 14.3 10^3/uL Lymphocytes # (Auto) 0.61 10^3/uL1 Monocytes # (Auto) 0.5 10^3/uL Absolute Immature Granulocyte (auto 0.06 10^3 u/L Absolute Eosinophils (auto) 0.0 10^3/uL Immature Granulocytes % 0.40 % Eosinophils % 0.0 % Basophils % 0.0 % Basophils # 0.0 10^3/uL Sodium Level 145 mmol/L Potassium Level 3.6 mmol/L Chloride Level 105.0 mmol/L Carbon Dioxide Level 35.6 mmol/L Anion Gap 8.0 Blood Urea Nitrogen 18 mg/dL Creatinine 0.59 mg/dL Estimated GFR () 139.6 Est GFR (CKD-EPI)(Non-Afr [place]) 115.3 BUN/Creatinine Ratio 30.0 Glucose Level 129 mg/dL Calcium Level 8.7 mg/dL Total Bilirubin 0.6 mg/dL Aspartate Amino Transf (AST/SGOT) 37 U/L Alanine Aminotransferase (ALT/SGPT) 54 U/L Alkaline Phosphatase 78 U/L Total Protein 6.5 g/dL Albumin 2.2 g/dL Globulin 4.3 Albumin/Globulin Ratio 0.511 Segmented Neutrophils 97 % Lymphocytes 1 % Monocytes 2 % Platelet Estimate ADEQUATE Platelet Morphology NORMAL Test 05/11/21 08:10 05/11/21 12:16 8/15/21 15:51 05/11/21 18:13 Blood Gas Sample Site LEFT RADIAL ARTERY Blood Gas pH 7.399 Blood Gas PCO2 54.2 mmHg Blood Gas PO2 53.9 mmHg Blood Gas HCO3 32.7 mmol/L Blood Gas Base Excess 6.4 mmol/L Lucas Test POSITIVE Arterial Blood Oxygen Saturation 85.4 % Deoxyhemoglobin 14.5 % Carboxyhemoglobin 0.3 % Methemoglobin 0.2 % Total Hemoglobin 13.5 % Total Oxygen Concentration 16.1 % Blood Gas Temperature 37 Oxygen Delivery Method (LAB) VENTILATOR Blood Gas Vent Mode AC VC+ Blood Gas Vent Rate 26 FiO2 100 % Blood Gas Tidal Volume 320 ML Blood Gas PEEP 14.0 CMH2O Total Carbon Dioxide 34.4 mmol/L Bedside Glucose 114 119 Urine Collection Type CATH Urine Color YELLOW Urine Appearance CLEAR Urine Bilirubin SMALL Urine Ictotest NEGATIVE Urine Ketones NEGATIVE Urine Specific [place] >=1.030 Urine pH 6.0 Urine Protein TRACE Urine Urobilinogen >=8.0 E.U./dL Urine Nitrate NEGATIVE Urine Leukocyte Esterase NEGATIVE Urine Glucose (Auto)(UA) NEGATIVE Urine Blood NEGATIVE Urine RBC 0-2 RBC/HPF Urine WBC 2-5 WBC/HPF Urine Squamous Epithelial Cells FEW #/HPF Urine Bacteria RARE Test 05/12/21 03:04 05/12/21 05:00 05/12/21 05:10 05/12/21 12:23 Blood Gas Sample Site RT RADIAL ARTERY RT RADIAL ARTERY Blood Gas pH 7.232 7.370 Blood Gas PCO2 103.1 mmHg 71.8 mmHg Blood Gas PO2 64.8 mmHg 58.0 mmHg Blood Gas HCO3 42.4 mmol/L 40.6 mmol/L Blood Gas Base Excess 10.7 mmol/L 11.8 mmol/L Lucas Test POSITIVE POSITIVE Arterial Blood Oxygen Saturation 86.7 % 84.5 % Deoxyhemoglobin 13.1 % 15.5 % Carboxyhemoglobin 0.8 % 0.2 % Methemoglobin 0.5 % 0.1 % Total Hemoglobin 13.2 % 13.7 % Total Oxygen Concentration 15.9 % 16.2 % Oxygen Delivery Method (LAB) VENTILATOR VENTILATOR Blood Gas Vent Mode AC+ AC+ Blood Gas Vent Rate 26 32 FiO2 100 % 100 % Blood Gas Tidal Volume 320 ML 320 ML Blood Gas PEEP 14.0 CMH2O 14.0 CMH2O Total Carbon Dioxide 45.6 mmol/L 42.8 mmol/L Blood Gas Temperature 37.0 White Blood Count 13.9 10^3/uL Red Blood Count 4.46 10^6/uL Hemoglobin 12.9 g/dL Hematocrit 41.6 % Mean Corpuscular Volume 93.3 fL Mean Corpuscular Hemoglobin 28.9 pg Mean Corpuscular Hemoglobin Concent 31.0 g/dL Red Cell Distribution Width 12.2 % Platelet Count 197 10^3/uL Mean Platelet Volume 11.1 fL Neutrophils (%) (Auto) 94.4 % Lymphocytes (%) (Auto) 3.0 % Monocytes (%) (Auto) 1.8 % Neutrophils # (Auto) 13.1 10^3/uL Lymphocytes # (Auto) 0.41 10^3/uL1 Monocytes # (Auto) 0.3 10^3/uL Absolute Immature Granulocyte (auto 0.10 10^3 u/L Absolute Eosinophils (auto) 0.0 10^3/uL Immature Granulocytes % 0.70 % Eosinophils % 0.1 % Basophils % 0.0 % Basophils # 0.0 10^3/uL Prothrombin Time 10.8 SEC Prothrombin Time INR (Non-Therap) 1.0 Activated Partial Thromboplast Time 24.7 SEC Sodium Level 148 mmol/L Potassium Level 3.7 mmol/L Chloride Level 105.0 mmol/L Carbon Dioxide Level 39.0 mmol/L Anion Gap 7.7 Blood Urea Nitrogen 22 mg/dL Creatinine 0.51 mg/dL Estimated GFR () 165.1 Est GFR (CKD-EPI)(Non-Afr [place]) 136.5 BUN/Creatinine Ratio 43.0 Glucose Level 156 mg/dL Hemoglobin A1c 6.5 % Calcium Level 8.7 mg/dL Phosphorus Level 4.3 mg/dL Magnesium Level 2.3 mg/dL Total Bilirubin 0.5 mg/dL Aspartate Amino Transf (AST/SGOT) 38 U/L Alanine Aminotransferase (ALT/SGPT) 60 U/L Alkaline Phosphatase 83 U/L Total Protein 6.7 g/dL Albumin 2.0 g/dL Globulin 4.7 Albumin/Globulin Ratio 0.425 Triglycerides Level 261 mg/dL Bedside Glucose 132 Height (Feet): 5 Height (Inches): 5 Current Weight: 200 Usual Weight: 225 %IBW: 162 Recent Weight Change: Yes (wt down from admission but has been stable between 199-203# the last 4 days) Weight Status: Obese GI Symptoms: Constipation (pt with no BM since the per RN) Food Allergies: No Cultural/Ethnic/Mormon Cookie: none known Usual Diet at Home: regular Skin Integrity/Comment: No Current %PO: NPO Calories/Kcals/Kg: abbe st eq Kcals Calculated: 1663 kcal Protein g/k-1.5 g/kg IBW Protein Calculated: 56-85g Fluid: ml: 2363 ml (25 ml/kg) Nutritional Problem: Nutr. Problems Present Problems: Inadequate oral intake Etiology: covid pneumonia/reduced appetite/intubation Signs/Symptoms: reduced po intake prior to intubation. Pt now mechanically ventilated with no energy intake the last 5 days. Wt trending down from admission wt. Recommendations by RD: Add supplement feedings RD Comments: 1. Recommend 100 ml bolus feed of glucerna 1.5 q4h with 75 ml water flush q4h. First 2 feedings half strength to ensure tolerance. This will provide 900 kcal, 50g protein, 80g carbs, 45g fat, and 905 ml of water total. This will meet 100% of patient's energy needs in combination with calories from propofol. - discussed with RN 2. Monitor Mg, K, and PO4 before and during tube feed initiation. 3. Monitor BG and correct as indicated. 4. Monitor BMs, bowel regimen as appropriate. - monitor for abdominal distention closely as no BM in last 7 days 5. Monitor triglycerides Expected Outcomes Tube feeding tolerance - up to goal rate and meeting 100% of nutrition needs in 48 hours discharge goal is pending Malnutrtion/Nutrition Risk Edu: No MD Notificiation Needed?: No Viviane Martini May 12, 2021 13:28
[2021-05-12 14:02] LABS: ANISOCYTOSIS 1+ (NEGATIVE); LYMPHOCYTE 3 % (25-36); MONOCYTE 2 % (3-9); SEGMENTED NEUTROPHILS 95 % (31-76)
--- NOTE | 2021-05-12 15:18 | PRM.PN ---
PROGRESS NOTE S/O/A/P DATE: 05/12/21 TIME: 2:30pm SUBJECTIVE: Per RN, no new issues overnight. Patient remains intubated and sedated, currently lying in the prone position at this time. Still awaiting an available bed for transfer to a Higher Level of Care for possible ECMO. OBJECTIVE: PHYSICAL EXAMINATION: VITAL SIGNS: T 99.5, HR 66, BP 112/70, RR 34, O2 sat 90% on VENT GENERAL: Resting comfortably in NAD. No family or friends present at bedside. HEENT: NC/AT. PERRL. MMM. Neck is supple. LUNGS: Coarse BL BS noted. +ETT in place. HEART: Normal S1S2. RRR. No murmurs, rubs, gallops, or thrills. ABDOMEN: Soft. ND. NTTP. Normal BS throughout. EXTREMITIES: Trace BL pedal edema noted. NEUROLOGIC: Unable to properly assess due to intubation and sedation. LABORATORY DATA: Reviewed and significant for WBC 13.9, Na 148, BUN 22, Cr 0.51, Gluc 156, HgbA1c 6.5, AB.37/71.8/58, Bld Cx: Neg x1day, Sptm Cx: Nml Resp Aimee, Ur Cx: Neg x16hrs IMAGING STUDIES: 1) CXR: No significant change since yesterday. Continued findings c/w COVID- 19 PNA. ASSESSMENT / PLAN: 1) Acute Hypoxemic Respiratory Failure / Severe ARDS: Pt remains intubated (since 05/06/21) and sedated at this time. Will continue VENT management as per Tele-ICU Ladies Locker Room Attendant. 2) COVID-19 +: Pt has completed Tx with Remdesivir, and remains on Dexamethasone for now. She would benefit from ECMO and/or lung transplant evaluation. However, due to the Pandemic and COVID surge, no beds are available for transfer to a Higher Level of Care in [place], [place], or [place] at this time. She still remains on the "wait list" for [facility]. 3) BL Pneumonia: Due to #2 above. Zosyn has been DC'd. Continue supportive care. 4) Hypotension: Pt is still requiring low dose Levophed. Will attempt to wean off today. 5) Hyperglycemia: Exacerbated by Steroids and TF. HgbA1c is 6.5. 6) GI and DVT prophylaxis: Will continue Pepcid and Lovenox (T-dose). IRVING SPIVEY MD May 12, 2021 15:18
[2021-05-12] MEDS: VERSED IV SCH (17:37)
[2021-05-12] MEDS: NS IV SCH ×2 (17:37)
[2021-05-12] MEDS: SUBLIMAZE IV SCH (17:37)
[2021-05-12] MEDS: DIPRIVAN 100 ML IV PRN (17:37)
--- NOTE | 2021-05-12 19:00 | NUR ---
ART Line placed on the Left radial artery By pollution control engineer anesthesia
[2021-05-12] MEDS ORDERED: NS 1000ML 1,000 ML ONE (19:14)
[2021-05-13] VITALS (71 sets, daily range): BP systolic 75–154; BP diastolic 39–81
[2021-05-13] MEDS: NORCURON IV PRN ×4 (00:43→23:00)
[2021-05-13 04:33] LABS: ABG PCO2 61.8 mmHg (35.0-45.0); ABG PH 7.389 (7.350-7.450); BE(B) 9.3 mmol/L (-2.0-2.0); HCO3act 36.5 mmol/L (22.0-26.0); pO2 52.5 mmHg (80.0-100.0)
[2021-05-13 04:41] LABS: BASOPHIL % 0.1 % (0.0-0.2); EOSINOPHIL % 0.2 % (0.0-5.0); LYMPHOCYTES # 0.43 10^3/uL1 (1.0-4.8); LYMPHOCYTES % 3.2 % (24.0-44.0); MEAN CORP HGB 29.8 pg (26-34); MONOCYTES # 0.2 10^3/uL (0.3-0.8); MONOCYTES % 1.5 % (5.0-12.0); NEUTROPHIL # 12.7 10^3/uL (1.8-7.7); PLATELET COUNT 204 10^3/uL (150-400); RED CELL DISTRIBUTION WIDTH 12.1 % (11.5-14.5)
[2021-05-13 05:00] LABS: CALCIUM 8.5 mg/dL (8.4-10.5); CARBON DIOXIDE 38.6 mmol/L (20.0-32)
[2021-05-13] MEDS: CARAFATE PO SCH ×4 (07:30→21:00)
[2021-05-13] MEDS: COLACE NG SCH ×2 (08:11→21:00)
[2021-05-13] MEDS: LASIX IV SCH ×2 (08:14→21:00)
[2021-05-13] MEDS: DEXAMETHASONE 10 MG/ML VIAL IV SCH ×2 (08:14→21:00)
[2021-05-13] MEDS: PEPCID IV SCH ×2 (08:14→21:00)
[2021-05-13] MEDS: LOVENOX SQ SCH ×2 (08:14→20:30)
[2021-05-13] MEDS: DIPRIVAN 100 ML IV PRN ×4 (08:15→22:00)
[2021-05-13] MEDS: PRECEDEX 400 MCG/100 ML INJECT 100 ML IV SCH ×2 (08:15→16:21)
[2021-05-13] MEDS: VERSED IV SCH (16:20)
[2021-05-13] MEDS: NS IV SCH ×2 (16:20→16:21)
[2021-05-13] MEDS: SUBLIMAZE IV SCH (16:21)
--- NOTE | 2021-05-13 16:59 | PRM.PN ---
Assessment & Plan Provider Note: Tele-ICU Consult Note Brief summary 35 y/o woman admitted w/ covid pneumonia. She remains intubated and prone O: Vitals reviewed. Gen appearance: intubated and prone See Nurse physical bedside exam Labs and imaging reviewed Impression/Problem list: Respiratory failure COVID19 pneumonia Suspect superimposed bacterial pneumonia Plan: Immediate nursing concerns addressed: no acute issues Drips: precedex/fent/prop/versed/Levo #Neuro- sedated. wean off propofol. concern for prop toxicity. patient urine turning green. consider adding ketamine drip. #CVS- c/w levophed w/ goal MAP 65 #Pulm- c/w vent settings. try to titrate down FIO2 and peep goal 88% to 92% O2sat. likely aim for trach #GI- tube feeds as tolerated #Endo-monitor FS q6h #Renal. Monitor urine output and Scr. #Heme/onc- monitor plt and transfuse if H&H <7 #ID-panculture if febrile. complete course of treatment for covid. GI ppx-on famotidine DVT ppx- on lovenox I discussed patient with SUPERVISOR PLASTERING and I saw this patient and completed a full visual exam via audio-visual HIPAA compliant technology Tele-ICU ccm time: 60 min CRISTOFER BLUE MD May 13, 2021 16:59
--- NOTE | 2021-05-13 22:13 | PRM.PN ---
Subjective Subjective Date: May 13, 2021 Time: 11:00 Subjective Met with family to discuss patient's care and prognosis have been attempting to transfer but all facilities in the area that are tertiary care centers are on divert she is placed on waiting list where available. Discussed with patient's family relatively poor prognosis given her current situation. Multidisciplinary rounds done with ICU nurse RT and critical care telemedicine VTE VTE Risk Total Score: 5 VTE Risk Score VTE Risk: Score 0-1 = Low Risk (Aggressive mobilization; early ambulation; no VTE prophylaxis required) Score 2: Moderate Risk (Intermittent/Pneumatic Compression Device OR Lovenox/Heparin/Coumadin) Score 3-4: High Risk (Intermittent/Pneumatic Compression Device AND Lovenox/Heparin/Coumadin) Score > or =5: Highest Risk (Intermittent/Pneumatic Compression Device AND Lovenox/Heparin/Coumadin) Antico:Hep/LMWH/Coum/Xarelto: Yes Mechanical device ordered: Yes Review of Systems Constitutional: Fever; No: Chills, Weakness Eyes: No: Pain, Vision change, Conjunctivae inflammation, Eyelid inflammation, Other, Redness ENT: No: Ear pain, Ear discharge, Nose pain, Nose discharge, Nose congestion, Mouth pain, Mouth swelling, Throat pain, Throat swelling, Other Respiratory: Shortness of breath, SOB with excertion; No: Cough, Dry Cardiovascular: No: Chest Pain, Orthopnea Gastrointestinal: No: Nausea, Vomiting, Abdominal Pain, Diarrhea, Constipation, Melena, Hematochezia, Other Genitourinary: No Dysuria, No Frequency Musculoskeletal: No: back pain, hand pain Skin: No: Jaundice Neurological: No: Weakness, Numbness, Incoordination Other Limited by intubation and sedation Allergies: Coded Allergies: ibuprofen (Verified Allergy, Unknown, 04/29/21) naproxen (Verified Allergy, Unknown, 04/29/21) Objective Vitals and I/O Vital Sign - Last 24 Hours 05/13/21 05/13/21 05/13/21 05/13/21 07:00 07:15 07:30 07:45 Temp 99.9 99.9 100.0 99.9 Pulse 55 56 56 56 B/P (MAP) 138/70 (92) 127/76 (93) 116/68 (84) 132/73 (92) 131/69 (89) 130/69 (89) 124/65 (84) 125/65 (85) Pulse Ox 92 94 92 92 05/13/21 05/13/21 05/13/21 05/13/21 08:00 08:00 08:00 08:15 Temp 99.9 99.9 Pulse 58 58 53 Resp 24 B/P (MAP) 122/55 (77) 140/70 (93) 114/59 (77) 135/71 (92) Pulse Ox 92 93 91 O2 Delivery Mechanical Ventilator FiO2 100 05/13/21 05/13/21 05/13/21 05/13/21 08:17 08:19 08:30 08:45 Temp 100.0 99.9 Pulse 55 55 54 54 Resp 36 36 B/P (MAP) 137/71 (93) 139/72 (94) 130/68 (88) 131/70 (90) Pulse Ox 92 92 93 93 O2 Delivery Mechanical Ventilator FiO2 100 100 05/13/21 05/13/21 05/13/21 05/13/21 09:00 09:15 09:30 09:45 Temp 99.9 99.9 99.7 99.9 Pulse 56 58 58 58 B/P (MAP) 123/72 (89) 128/70 (89) 127/68 (87) 125/67 (86) 123/67 (85) 115/63 (80) 115/62 (79) 117/63 (81) Pulse Ox 91 89 88 89 05/13/21 05/13/21 05/13/21 05/13/21 10:00 10:01 10:15 10:30 Temp 99.9 99.9 99.9 Pulse 59 59 59 60 Resp 35 B/P (MAP) 123/67 (85) 129/66 (87) 133/68 (89) 116/61 (79) 120/64 (82) 124/65 (84) Pulse Ox 90 92 92 91 FiO2 100 05/13/21 05/13/21 05/13/21 05/13/21 10:45 11:00 11:15 11:30 Temp 99.9 100.0 100.2 100.2 Pulse 62 60 62 62 B/P (MAP) 133/64 (87) 137/69 (91) 130/70 (90) 132/72 (92) 123/64 (83) 123/65 (84) 125/66 (85) 125/66 (85) Pulse Ox 92 93 92 93 05/13/21 05/13/21 05/13/21 05/13/21 11:45 12:00 12:00 12:01 Temp 100.2 100.2 Pulse 61 62 62 Resp 35 B/P (MAP) 124/72 (89) 131/75 (93) 127/67 (87) 123/65 (84) Pulse Ox 93 94 93 O2 Delivery Mechanical Ventilator FiO2 100 05/13/21 05/13/21 05/13/21 05/13/21 12:15 12:30 12:45 13:00 Temp 100.2 100.2 100.2 100.4 Pulse 61 62 69 62 B/P (MAP) 135/66 (89) 129/70 (89) 128/71 (90) 128/66 (86) 123/66 (85) 123/66 (85) 124/67 (86) 123/66 (85) Pulse Ox 93 92 90 92 05/13/21 05/13/21 05/13/21 05/13/21 13:15 13:30 13:45 14:00 Temp 100.2 100.2 100.2 100.2 Pulse 61 61 60 61 B/P (MAP) 129/69 (89) 125/68 (87) 126/68 (87) 123/70 (87) 127/68 (87) Pulse Ox 93 93 93 93 05/13/21 05/13/21 05/13/21 05/13/21 14:15 14:30 14:30 14:45 Temp 100.2 100.2 100.2 Pulse 62 62 61 61 Resp 34 B/P (MAP) 123/66 (85) 122/66 (84) 122/65 (84) Pulse Ox 92 93 92 93 FiO2 100 05/13/21 05/13/21 05/13/21 05/13/21 15:00 15:15 15:30 15:45 Temp 100.0 100.0 99.9 99.9 Pulse 61 62 62 62 B/P (MAP) 123/62 (82) 119/64 (82) 124/66 (85) 129/68 (88) 120/65 (83) Pulse Ox 94 93 94 93 05/13/21 05/13/21 05/13/21 05/13/21 16:00 16:05 16:15 16:23 Temp 100.0 100.0 Pulse 63 62 60 Resp 35 B/P (MAP) 130/70 (90) 124/66 (85) 122/66 (84) Pulse Ox 92 92 92 O2 Delivery Mechanical Ventilator 05/13/21 05/13/21 05/13/21 05/13/21 16:30 16:45 17:00 17:15 Temp 100.2 100.2 100.2 Pulse 61 61 69 B/P (MAP) 126/67 (86) 121/66 (84) 99/57 (71) 105/60 (75) Pulse Ox 93 92 88 84 05/13/21 05/13/21 05/13/21 05/13/21 17:27 17:30 17:38 17:45 Temp 100.2 100.2 100.2 100.0 Pulse 64 61 58 51 Resp 37 44 B/P (MAP) 122/55 (77) 75/39 (51) 106/53 (70) 100/53 (69) 84/45 (58) 77/39 (52) Pulse Ox 70 65 76 76 05/13/21 05/13/21 05/13/21 05/13/21 18:00 18:15 19:17 19:19 Pulse 51 64 Resp 44 35 B/P (MAP) 98/47 (64) 138/64 (88) Pulse Ox 93 92 92 94 05/13/21 05/13/21 21:51 21:51 Pulse 67 Resp 35 Pulse Ox 95 O2 Delivery Mechanical Ventilator FiO2 100 l Intake and Output 05/13/21 07:00 Intake Total 2361 ml Output Total 2400 ml Balance -39 ml General: Other (Intubated sedated.) HEENT: Atraumatic, PERRLA, EOMI Neck: Supple Lungs: Other (Coarse bilateral breath sounds, respirations non labored) Heart: No murmurs Abdomen: Normal bowel sounds, Soft Extremities: No clubbing, No cyanosis Skin: No rashes, No breakdown Neuro: Other (Intubated sedated.) Psych/Mental Status: Other (Intubated sedated.) All Results(Lab/Rad) Laboratory Tests Test 05/02/21 06:37 05/02/21 08:25 White Blood Count 7.6 10^3/uL Red Blood Count 4.62 10^6/uL Hemoglobin 13.6 g/dL Hematocrit 40.6 % Mean Corpuscular Volume 87.9 fL Mean Corpuscular Hemoglobin 29.4 pg Mean Corpuscular Hemoglobin Concent 33.5 g/dL Red Cell Distribution Width 12.0 % Platelet Count 268 10^3/uL Mean Platelet Volume 10.5 fL Neutrophils (%) (Auto) 82.9 % Lymphocytes (%) (Auto) 11.7 % Monocytes (%) (Auto) 5.4 % Neutrophils # (Auto) 6.3 10^3/uL Lymphocytes # (Auto) 0.89 10^3/uL1 Monocytes # (Auto) 0.4 10^3/uL Absolute Immature Granulocyte (auto 0.12 10^3 u/L Absolute Eosinophils (auto) 0.0 10^3/uL Immature Granulocytes % 1.60 % Eosinophils % 0.0 % Basophils % 0.0 % Basophils # 0.0 10^3/uL Sodium Level 140 mmol/L Potassium Level 4.7 mmol/L Chloride Level 104.0 mmol/L Carbon Dioxide Level 27.6 mmol/L Anion Gap 13.1 Blood Urea Nitrogen 14 mg/dL Creatinine 0.62 mg/dL Estimated GFR () 131.8 Est GFR (CKD-EPI)(Non-Afr Icelandic) 108.9 BUN/Creatinine Ratio 22.0 Glucose Level 121 mg/dL Calcium Level 8.8 mg/dL Total Bilirubin 0.4 mg/dL Aspartate Amino Transf (AST/SGOT) 26 U/L Alanine Aminotransferase (ALT/SGPT) 37 U/L Alkaline Phosphatase 42 U/L Total Protein 6.7 g/dL Albumin 2.5 g/dL Globulin 4.2 Albumin/Globulin Ratio 0.595 Blood Gas Sample Site RT RADIAL ARTERY Blood Gas pH 7.405 Blood Gas PCO2 41.1 mmHg Blood Gas PO2 82.5 mmHg Blood Gas HCO3 25.2 mmol/L Blood Gas Base Excess 0.4 mmol/L Lucas Test POSITIVE Arterial Blood Oxygen Saturation 95.5 % Deoxyhemoglobin 4.5 % Carboxyhemoglobin 0.6 % Methemoglobin 0.3 % Total Hemoglobin 14.6 % Total Oxygen Concentration 19.5 % Blood Gas Temperature 37 Oxygen Delivery Method (LAB) BIPAP15/7 FiO2 99 % Total Carbon Dioxide 26.4 mmol/L Current Medications Medications (Trade) Dose Ordered Sig/Davon Route PRN Reason Start Time Stop Time Status Last Admin Dose Admin Remdesivir 200 mg/ Sodium Chloride 140 ml @ 120.69 mls/ hr OT STAT IV 04/28/21 19:53 04/29/21 08:10 DC 04/28/21 19:53 Remdesivir 100 mg/ Sodium Chloride 120 ml @ 111.111 mls/hr Q24HRS IV 04/29/21 20:00 05/02/21 21:05 05/01/21 20:50 Famotidine (Pepcid) 20 mg BID PO 04/28/21 21:00 05/28/21 20:59 05/02/21 09:29 Sucralfate (Carafate) 1 gm ACHS PO 04/28/21 21:00 05/28/21 20:59 05/02/21 07:30 Enoxaparin Sodium (Lovenox) 40 mg Q24HRS SQ 04/28/21 20:00 05/28/21 19:59 05/01/21 20:50 Sucralfate (Carafate) 1 gm STK-MED ONCE PO 04/28/21 20:56 04/28/21 20:56 DC Lorazepam (Ativan) 1 mg Q4HR PRN IV ANXIETY 04/29/21 00:00 05/29/21 00:00 04/30/21 22:30 Lorazepam (Ativan) 0.5 mg Q4HR PRN IV ANXIETY 04/29/21 00:00 05/29/21 00:00 Fentanyl Citrate (Sublimaze) 50 mcg STK-MED ONCE .ROUTE 04/29/21 11:37 04/29/21 11:38 DC Fentanyl Citrate (Sublimaze) 12.5 mcg OT ONCE IV 04/29/21 15:00 04/29/21 15:06 DC 04/29/21 13:35 Acetaminophen (Tylenol) 650 mg Q6HR PRN PO PAIN 1 - 3 04/30/21 18:00 05/02/21 18:00 05/01/21 06:28 Dexmedetomidine HCl 200 mcg/ Sodium Chloride 50 ml @ 0 mls/hr IV 05/01/21 10:30 05/01/21 11:28 DC Sodium Chloride 250 ml @ ud STK-MED ONCE .ROUTE 05/01/21 20:40 05/01/21 20:40 DC Course Sepsis Screening Results: Posi: POSITIVE++ Sepsis Qualifier/Stage: SEVERE SEPSIS RISK Duration or Total Time Spent w: 60min Vitals & review Data Vital Sign - Last 24 Hours 05/02/21 05/02/21 05/02/21 05/02/21 08:00 08:07 08:15 08:22 Pulse 64 45 47 83 Resp 24 21 19 33 B/P (MAP) 104/59 (74) Pulse Ox 93 95 95 86 O2 Delivery S/T FiO2 100 05/02/21 05/02/21 05/02/21 05/02/21 08:31 08:37 08:45 08:52 Pulse 69 68 65 75 Resp 24 31 30 35 B/P (MAP) 137/87 (104) Pulse Ox 95 95 93 91 05/02/21 05/02/21 05/02/21 05/02/21 08:54 09:00 09:00 09:07 Pulse 62 64 64 Resp 10 24 38 B/P (MAP) 119/74 (89) Pulse Ox 89 93 89 O2 Delivery Bi-pap Bi-pap O2 Flow Rate 100.00 FiO2 99 05/02/21 05/02/21 05/02/21 05/02/21 09:10 09:16 09:22 09:30 Pulse 106 62 63 83 Resp 26 29 32 29 B/P (MAP) 160/72 (101) 135/77 (96) Pulse Ox 89 89 90 81 O2 Delivery Comfort Doug O2 Flow Rate 50.00 FiO2 100 05/02/21 05/02/21 05/02/21 05/02/21 09:37 09:46 09:52 10:00 Pulse 73 74 70 55 Resp 16 34 27 16 B/P (MAP) 174/107 (129) Pulse Ox 85 82 83 95 O2 Delivery S/T FiO2 100 05/02/21 05/02/21 05/02/21 05/02/21 10:00 10:07 10:15 10:22 Pulse 60 66 68 65 Resp 23 36 23 B/P (MAP) 115/77 (90) 114/79 (91) Pulse Ox 92 93 92 92 Laboratory Tests Test 05/01/21 04:32 05/01/21 11:20 05/02/21 06:37 05/02/21 08:25 White Blood Count 10.2 10^3/uL 7.6 10^3/uL Red Blood Count 4.50 10^6/uL 4.62 10^6/uL Hemoglobin 13.3 g/dL 13.6 g/dL Hematocrit 39.6 % 40.6 % Mean Corpuscular Volume 88.0 fL 87.9 fL Mean Corpuscular Hemoglobin 29.6 pg 29.4 pg Mean Corpuscular Hemoglobin Concent 33.6 g/dL 33.5 g/dL Red Cell Distribution Width 12.1 % 12.0 % Platelet Count 234 10^3/uL 268 10^3/uL Mean Platelet Volume 10.4 fL 10.5 fL Sodium Level 139 mmol/L 140 mmol/L Potassium Level 3.9 mmol/L 4.7 mmol/L Chloride Level 105.0 mmol/L 104.0 mmol/L Carbon Dioxide Level 26.8 mmol/L 27.6 mmol/L Anion Gap 11.1 13.1 Blood Urea Nitrogen 12 mg/dL 14 mg/dL Creatinine 0.56 mg/dL 0.62 mg/dL Estimated GFR () 148.2 131.8 Est GFR (CKD-EPI)(Non-Afr Icelandic) 122.5 108.9 BUN/Creatinine Ratio 21.0 22.0 Glucose Level 87 mg/dL 121 mg/dL Calcium Level 8.8 mg/dL 8.8 mg/dL Total Bilirubin 0.5 mg/dL 0.4 mg/dL Aspartate Amino Transf (AST/SGOT) 36 U/L 26 U/L Alanine Aminotransferase (ALT/SGPT) 39 U/L 37 U/L Alkaline Phosphatase 43 U/L 42 U/L Total Protein 6.7 g/dL 6.7 g/dL Albumin 2.5 g/dL 2.5 g/dL Globulin 4.2 4.2 Albumin/Globulin Ratio 0.595 0.595 Blood Gas Sample Site RT RADIAL ARTERY RT RADIAL ARTERY Blood Gas pH 7.459 7.405 Blood Gas PCO2 31.9 mmHg 41.1 mmHg Blood Gas PO2 86.7 mmHg 82.5 mmHg Blood Gas HCO3 22.1 mmol/L 25.2 mmol/L Blood Gas Base Excess -0.8 mmol/L 0.4 mmol/L Lucas Test POSITIVE POSITIVE Arterial Blood Oxygen Saturation 96.2 % 95.5 % Deoxyhemoglobin 3.8 % 4.5 % Carboxyhemoglobin 0.1 % 0.6 % Methemoglobin 0.1 % 0.3 % Total Hemoglobin 14.8 % 14.6 % Total Oxygen Concentration 20.0 % 19.5 % Blood Gas Temperature 37.0 37 Oxygen Delivery Method (LAB) BIPAP BIPAP15/[address] Mode ST FiO2 80 % 99 % Total Carbon Dioxide 23.1 mmol/L 26.4 mmol/L Neutrophils (%) (Auto) 82.9 % Lymphocytes (%) (Auto) 11.7 % Monocytes (%) (Auto) 5.4 % Neutrophils # (Auto) 6.3 10^3/uL Lymphocytes # (Auto) 0.89 10^3/uL1 Monocytes # (Auto) 0.4 10^3/uL Absolute Immature Granulocyte (auto 0.12 10^3 u/L Absolute Eosinophils (auto) 0.0 10^3/uL Immature Granulocytes % 1.60 % Eosinophils % 0.0 % Basophils % 0.0 % Basophils # 0.0 10^3/uL Current Medications Medications (Trade) Dose Ordered Sig/Davon PRN Reason Start Time Stop Time Status Last Admin Acetaminophen (Tylenol) 650 mg Q6HR PRN PAIN 1 - 3 04/30/21 18:00 05/02/21 18:00 05/01/21 06:28 Remdesivir 100 mg/ Sodium Chloride 120 ml @ 111.111 mls/hr Q24HRS 04/29/21 20:00 05/02/21 21:05 05/01/21 20:50 LEVEL 1 SEPSIS INFECTION CRITE: Cough/Shortness of Breath LEVEL 2-SIRS (LIST ALL THAT AP: RR>20/min, WBC>[id number] Cardiovascular Evidence: Not Assessed or None Hematologic Evidence: Increased PT/PTT Hepatic Evidence: None/Not assessed Metabolic Evidence: Lactate 2mmol> rpt in 2hr Neurological Evidence: Altered Mental Status Respiratory Evidence: Acute Resp failure, Need for O2 to keep>90%, O2 SAT<90room air Renal Evidence: None/Not assessed O2 Sat by Pulse Oximetry: 94 Respiratory End-tidal CO2: 38 Oxygen Flow Rate: 24.00 Assessment/Plan Assessment/Plan Assessment/Plan This is a 35 year old woman with COVID pneumonia/ARDS. ASSESSMENT / PLAN: 1) Acute Hypoxemic Respiratory Failure / Severe ARDS: Pt remains intubated (since 05/06/21) and sedated at this time. Will continue VENT management as per Tele-ICU [facility]. 2) COVID-19 +: Pt has completed Tx with Remdesivir, and remains on Dexamethasone for now. She would benefit from ECMO and/or lung transplant evaluation. However, due to the Pandemic and COVID surge, no beds are available for transfer to a Higher Level of Care in [place], [place], or [place] at this time. She still remains on the "wait list" for several facilities 3) BL Pneumonia: Due to #2 above. Zosyn has been DC'd. Continue supportive care. 4) Hyperglycemia: Exacerbated by Steroids and TF. HgbA1c is 6.5. 5) GI and DVT prophylaxis: Will continue Pepcid and Lovenox (T-dose). Critical Care Recommendations: Drips: precedex/fent/prop/versed/Levo #Neuro- sedated. wean off propofol. concern for prop toxicity. patient urine turning green. consider adding ketamine drip. #CVS- c/w levophed w/ goal MAP 65 #Pulm- c/w vent settings. try to titrate down FIO2 and peep goal 88% to 92% O2sat. likely aim for trach #GI- tube feeds as tolerated #Endo-monitor FS q6h #Renal. Monitor urine output and Scr. #Heme/onc- monitor plt and transfuse if H&H <7 #ID-panculture if febrile. complete course of treatment for covid. GI ppx-on famotidine DVT ppx- on lovenox JC HAYES MD May 13, 2021 22:13
[2021-05-14] VITALS (39 sets, daily range): BP systolic 86–143; BP diastolic 53–87
[2021-05-14] MEDS: VERSED IV SCH ×2 (00:33→17:33)
[2021-05-14] MEDS: NS IV SCH ×3 (00:33→17:33)
[2021-05-14] MEDS: TYLENOL RC PRN ×2 (01:03→08:57)
[2021-05-14] MEDS: NORCURON IV PRN ×10 (01:04→22:54)
--- NOTE | 2021-05-14 01:04 | NUR ---
Tylenol given for fever of 100.8
[2021-05-14] MEDS ORDERED: VENTOLIN IH SCH (03:00)
[2021-05-14] MEDS ORDERED: VENTOLIN IH PRN (03:00)
[2021-05-14] MEDS: DIPRIVAN 100 ML IV PRN ×2 (03:30)
[2021-05-14 04:49] LABS: BE(B) 8.4 mmol/L (-2.0-2.0); HCO3act 38.6 mmol/L (22.0-26.0); pO2 60.1 mmHg (80.0-100.0)
[2021-05-14 05:20] LABS: MEAN CORP HGB 29.4 pg (26-34); RED CELL DISTRIBUTION WIDTH 12.2 % (11.5-14.5)
[2021-05-14 05:43] LABS: CALCIUM 8.8 mg/dL (8.4-10.5); CARBON DIOXIDE 39.8 mmol/L (20.0-32)
[2021-05-14] MEDS: CARAFATE PO SCH ×4 (07:30→21:00)
[2021-05-14] MEDS: LOVENOX SQ SCH ×2 (07:50→20:30)
[2021-05-14] MEDS: LASIX IV SCH ×2 (08:57→21:00)
[2021-05-14] MEDS: DEXAMETHASONE 10 MG/ML VIAL IV SCH (08:57)
[2021-05-14] MEDS: COLACE NG SCH ×2 (08:57→21:00)
[2021-05-14] MEDS: PEPCID IV SCH ×2 (08:57→21:00)
--- NOTE | 2021-05-14 10:18 | PRM.PN ---
Subjective Subjective Date: May 14, 2021 Time: 10:16 Subjective Patient significantly desaturated when she was turned from prone to supine position yesterday afternoon. We had to return the patient to prone position in order to get her oxygen saturations up again. During the course of turning RT had concerns that patient may have aspirated she had a fever overnight blood cultures and urine cultures have been ordered as well as broad-spectrum antibiotics previous cultures drawn on May 08 were negative growth after 5 days. Repeat chest x-ray today VTE VTE Risk Total Score: 5 VTE Risk Score VTE Risk: Score 0-1 = Low Risk (Aggressive mobilization; early ambulation; no VTE prophylaxis required) Score 2: Moderate Risk (Intermittent/Pneumatic Compression Device OR Lovenox/Heparin/Coumadin) Score 3-4: High Risk (Intermittent/Pneumatic Compression Device AND Lovenox/Heparin/Coumadin) Score > or =5: Highest Risk (Intermittent/Pneumatic Compression Device AND Lovenox/Heparin/Coumadin) Antico:Hep/LMWH/Coum/Xarelto: Yes Mechanical device ordered: Yes Review of Systems Constitutional: Fever; No: Chills, Weakness Eyes: No: Pain, Vision change, Conjunctivae inflammation, Eyelid inflammation, Other, Redness ENT: No: Ear pain, Ear discharge, Nose pain, Nose discharge, Nose congestion, Mouth pain, Mouth swelling, Throat pain, Throat swelling, Other Respiratory: Shortness of breath, SOB with excertion; No: Cough, Dry Cardiovascular: No: Chest Pain, Orthopnea Gastrointestinal: No: Nausea, Vomiting, Abdominal Pain, Diarrhea, Constipation, Melena, Hematochezia, Other Genitourinary: No Dysuria, No Frequency Musculoskeletal: No: back pain, hand pain Skin: No: Jaundice Neurological: No: Weakness, Numbness, Incoordination Allergies: Coded Allergies: ibuprofen (Verified Allergy, Unknown, 04/29/21) naproxen (Verified Allergy, Unknown, 04/29/21) Objective Vitals and I/O Vital Sign - Last 24 Hours 05/14/21 05/14/21 05/14/21 05/14/21 07:00 07:15 07:30 07:45 Temp 100.6 100.6 100.8 100.8 Pulse 70 69 69 69 B/P (MAP) 115/57 (76) 120/63 (82) 123/64 (83) 132/69 (90) 121/63 (82) Pulse Ox 94 94 94 94 05/14/21 05/14/21 05/14/21 05/14/21 07:55 07:55 08:00 08:45 Temp 100.9 Pulse 64 64 73 Resp 35 36 B/P (MAP) 122/60 (80) 123/63 (83) Pulse Ox 97 96 98 O2 Delivery Mechanical Ventilator Mechanical Ventilator FiO2 100 100 05/14/21 08:45 Pulse 73 Resp 36 Pulse Ox 98 General: Other (Intubated sedated.) HEENT: Atraumatic, PERRLA, EOMI Neck: Supple Lungs: Other (Coarse bilateral breath sounds, respirations non labored) Heart: No murmurs Abdomen: Normal bowel sounds, Soft Extremities: No clubbing, No cyanosis Skin: No rashes, No breakdown Neuro: Other (Intubated sedated.) Psych/Mental Status: Other (Intubated sedated.) All Results(Lab/Rad) Laboratory Tests Test 05/02/21 06:37 05/02/21 08:25 White Blood Count 7.6 10^3/uL Red Blood Count 4.62 10^6/uL Hemoglobin 13.6 g/dL Hematocrit 40.6 % Mean Corpuscular Volume 87.9 fL Mean Corpuscular Hemoglobin 29.4 pg Mean Corpuscular Hemoglobin Concent 33.5 g/dL Red Cell Distribution Width 12.0 % Platelet Count 268 10^3/uL Mean Platelet Volume 10.5 fL Neutrophils (%) (Auto) 82.9 % Lymphocytes (%) (Auto) 11.7 % Monocytes (%) (Auto) 5.4 % Neutrophils # (Auto) 6.3 10^3/uL Lymphocytes # (Auto) 0.89 10^3/uL1 Monocytes # (Auto) 0.4 10^3/uL Absolute Immature Granulocyte (auto 0.12 10^3 u/L Absolute Eosinophils (auto) 0.0 10^3/uL Immature Granulocytes % 1.60 % Eosinophils % 0.0 % Basophils % 0.0 % Basophils # 0.0 10^3/uL Sodium Level 140 mmol/L Potassium Level 4.7 mmol/L Chloride Level 104.0 mmol/L Carbon Dioxide Level 27.6 mmol/L Anion Gap 13.1 Blood Urea Nitrogen 14 mg/dL Creatinine 0.62 mg/dL Estimated GFR () 131.8 Est GFR (CKD-EPI)(Non-Afr Yemeni) 108.9 BUN/Creatinine Ratio 22.0 Glucose Level 121 mg/dL Calcium Level 8.8 mg/dL Total Bilirubin 0.4 mg/dL Aspartate Amino Transf (AST/SGOT) 26 U/L Alanine Aminotransferase (ALT/SGPT) 37 U/L Alkaline Phosphatase 42 U/L Total Protein 6.7 g/dL Albumin 2.5 g/dL Globulin 4.2 Albumin/Globulin Ratio 0.595 Blood Gas Sample Site RT RADIAL ARTERY Blood Gas pH 7.405 Blood Gas PCO2 41.1 mmHg Blood Gas PO2 82.5 mmHg Blood Gas HCO3 25.2 mmol/L Blood Gas Base Excess 0.4 mmol/L Lucas Test POSITIVE Arterial Blood Oxygen Saturation 95.5 % Deoxyhemoglobin 4.5 % Carboxyhemoglobin 0.6 % Methemoglobin 0.3 % Total Hemoglobin 14.6 % Total Oxygen Concentration 19.5 % Blood Gas Temperature 37 Oxygen Delivery Method (LAB) BIPAP15/7 FiO2 99 % Total Carbon Dioxide 26.4 mmol/L Current Medications Medications (Trade) Dose Ordered Sig/Davon Route PRN Reason Start Time Stop Time Status Last Admin Dose Admin Remdesivir 200 mg/ Sodium Chloride 140 ml @ 120.69 mls/ hr OT STAT IV 04/28/21 19:53 04/29/21 08:10 DC 04/28/21 19:53 Remdesivir 100 mg/ Sodium Chloride 120 ml @ 111.111 mls/hr Q24HRS IV 04/29/21 20:00 05/02/21 21:05 05/01/21 20:50 Famotidine (Pepcid) 20 mg BID PO 04/28/21 21:00 05/28/21 20:59 05/02/21 09:29 Sucralfate (Carafate) 1 gm ACHS PO 04/28/21 21:00 05/28/21 20:59 05/02/21 07:30 Enoxaparin Sodium (Lovenox) 40 mg Q24HRS SQ 04/28/21 20:00 05/28/21 19:59 05/01/21 20:50 Sucralfate (Carafate) 1 gm STK-MED ONCE PO 04/28/21 20:56 04/28/21 20:56 DC Lorazepam (Ativan) 1 mg Q4HR PRN IV ANXIETY 04/29/21 00:00 05/29/21 00:00 04/30/21 22:30 Lorazepam (Ativan) 0.5 mg Q4HR PRN IV ANXIETY 04/29/21 00:00 05/29/21 00:00 Fentanyl Citrate (Sublimaze) 50 mcg STK-MED ONCE .ROUTE 04/29/21 11:37 04/29/21 11:38 DC Fentanyl Citrate (Sublimaze) 12.5 mcg OT ONCE IV 04/29/21 15:00 04/29/21 15:06 DC 04/29/21 13:35 Acetaminophen (Tylenol) 650 mg Q6HR PRN PO PAIN 1 - 3 04/30/21 18:00 05/02/21 18:00 05/01/21 06:28 Dexmedetomidine HCl 200 mcg/ Sodium Chloride 50 ml @ 0 mls/hr IV 05/01/21 10:30 05/01/21 11:28 DC Sodium Chloride 250 ml @ ud STK-MED ONCE .ROUTE 05/01/21 20:40 05/01/21 20:40 DC Course Sepsis Screening Results: Posi: POSITIVE++ Sepsis Qualifier/Stage: SEVERE SEPSIS RISK Duration or Total Time Spent w: 60min Vitals & review Data Vital Sign - Last 24 Hours 05/02/21 05/02/21 05/02/21 05/02/21 08:00 08:07 08:15 08:22 Pulse 64 45 47 83 Resp 24 21 19 33 B/P (MAP) 104/59 (74) Pulse Ox 93 95 95 86 O2 Delivery S/T FiO2 100 05/02/21 05/02/21 05/02/21 05/02/21 08:31 08:37 08:45 08:52 Pulse 69 68 65 75 Resp 24 31 30 35 B/P (MAP) 137/87 (104) Pulse Ox 95 95 93 91 05/02/21 05/02/21 05/02/21 05/02/21 08:54 09:00 09:00 09:07 Pulse 62 64 64 Resp 10 24 38 B/P (MAP) 119/74 (89) Pulse Ox 89 93 89 O2 Delivery Bi-pap Bi-pap O2 Flow Rate 100.00 FiO2 99 05/02/21 05/02/21 05/02/2121 09:10 09:16 09:22 09:30 Pulse 106 62 63 83 Resp 26 29 32 29 B/P (MAP) 160/72 (101) 135/77 (96) Pulse Ox 89 89 90 81 O2 Delivery Comfort Doug O2 Flow Rate 50.00 FiO2 100 05/02/21 05/02/21 05/02/21 05/02/21 09:37 09:46 09:52 10:00 Pulse 73 74 70 55 Resp 16 34 27 16 B/P (MAP) 174/107 (129) Pulse Ox 85 82 83 95 O2 Delivery S/T FiO2 100 05/02/21 05/02/21 05/02/21 05/02/21 10:00 10:07 10:15 10:22 Pulse 60 66 68 65 Resp 23 36 23 B/P (MAP) 115/77 (90) 114/79 (91) Pulse Ox 92 93 92 92 Laboratory Tests Test 05/01/21 04:32 05/01/21 11:20 05/02/21 06:37 05/02/21 08:25 White Blood Count 10.2 10^3/uL 7.6 10^3/uL Red Blood Count 4.50 10^6/uL 4.62 10^6/uL Hemoglobin 13.3 g/dL 13.6 g/dL Hematocrit 39.6 % 40.6 % Mean Corpuscular Volume 88.0 fL 87.9 fL Mean Corpuscular Hemoglobin 29.6 pg 29.4 pg Mean Corpuscular Hemoglobin Concent 33.6 g/dL 33.5 g/dL Red Cell Distribution Width 12.1 % 12.0 % Platelet Count 234 10^3/uL 268 10^3/uL Mean Platelet Volume 10.4 fL 10.5 fL Sodium Level 139 mmol/L 140 mmol/L Potassium Level 3.9 mmol/L 4.7 mmol/L Chloride Level 105.0 mmol/L 104.0 mmol/L Carbon Dioxide Level 26.8 mmol/L 27.6 mmol/L Anion Gap 11.1 13.1 Blood Urea Nitrogen 12 mg/dL 14 mg/dL Creatinine 0.56 mg/dL 0.62 mg/dL Estimated GFR () 148.2 131.8 Est GFR (CKD-EPI)(Non-Afr Yemeni) 122.5 108.9 BUN/Creatinine Ratio 21.0 22.0 Glucose Level 87 mg/dL 121 mg/dL Calcium Level 8.8 mg/dL 8.8 mg/dL Total Bilirubin 0.5 mg/dL 0.4 mg/dL Aspartate Amino Transf (AST/SGOT) 36 U/L 26 U/L Alanine Aminotransferase (ALT/SGPT) 39 U/L 37 U/L Alkaline Phosphatase 43 U/L 42 U/L Total Protein 6.7 g/dL 6.7 g/dL Albumin 2.5 g/dL 2.5 g/dL Globulin 4.2 4.2 Albumin/Globulin Ratio 0.595 0.595 Blood Gas Sample Site RT RADIAL ARTERY RT RADIAL ARTERY Blood Gas pH 7.459 7.405 Blood Gas PCO2 31.9 mmHg 41.1 mmHg Blood Gas PO2 86.7 mmHg 82.5 mmHg Blood Gas HCO3 22.1 mmol/L 25.2 mmol/L Blood Gas Base Excess -0.8 mmol/L 0.4 mmol/L Lucas Test POSITIVE POSITIVE Arterial Blood Oxygen Saturation 96.2 % 95.5 % Deoxyhemoglobin 3.8 % 4.5 % Carboxyhemoglobin 0.1 % 0.6 % Methemoglobin 0.1 % 0.3 % Total Hemoglobin 14.8 % 14.6 % Total Oxygen Concentration 20.0 % 19.5 % Blood Gas Temperature 37.0 37 Oxygen Delivery Method (LAB) BIPAP BIPAP15/[address] FiO2 80 % 99 % Total Carbon Dioxide 23.1 mmol/L 26.4 mmol/L Neutrophils (%) (Auto) 82.9 % Lymphocytes (%) (Auto) 11.7 % Monocytes (%) (Auto) 5.4 % Neutrophils # (Auto) 6.3 10^3/uL Lymphocytes # (Auto) 0.89 10^3/uL1 Monocytes # (Auto) 0.4 10^3/uL Absolute Immature Granulocyte (auto 0.12 10^3 u/L Absolute Eosinophils (auto) 0.0 10^3/uL Immature Granulocytes % 1.60 % Eosinophils % 0.0 % Basophils % 0.0 % Basophils # 0.0 10^3/uL Current Medications Medications (Trade) Dose Ordered Sig/Davon PRN Reason Start Time Stop Time Status Last Admin Acetaminophen (Tylenol) 650 mg Q6HR PRN PAIN 1 - 3 04/30/21 18:00 05/02/21 18:00 05/01/21 06:28 Remdesivir 100 mg/ Sodium Chloride 120 ml @ 111.111 mls/hr Q24HRS 04/29/21 20:00 05/02/21 21:05 05/01/21 20:50 LEVEL 1 SEPSIS INFECTION CRITE: Cough/Shortness of Breath LEVEL 2-SIRS (LIST ALL THAT AP: RR>20/min, WBC>[id number] Cardiovascular Evidence: Not Assessed or None Hematologic Evidence: Increased PT/PTT Hepatic Evidence: None/Not assessed Metabolic Evidence: Lactate 2mmol> rpt in 2hr Neurological Evidence: Altered Mental Status Respiratory Evidence: Acute Resp failure, Need for O2 to keep>90%, O2 SAT<90room air Renal Evidence: None/Not assessed O2 Sat by Pulse Oximetry: 98 Respiratory End-tidal CO2: 52 Oxygen Flow Rate: 24.00 Assessment/Plan Assessment/Plan Assessment/Plan This is a 35 year old woman with COVID pneumonia/ARDS. ASSESSMENT / PLAN: 1) Acute Hypoxemic Respiratory Failure / Severe ARDS: Pt remains intubated (since 05/06/21) and sedated at this time. Will continue VENT management as per Tele-ICU Dividend Clerk. 2) COVID-19 +: Pt has completed Tx with Remdesivir, and remains on Dexamethasone for now. She would benefit from ECMO and/or lung transplant evaluation. However, due to the Pandemic and COVID surge, no beds are available for transfer to a Higher Level of Care in [place], [place], or [place] at this time. She still remains on the "wait list" for several facilities 3) BL Pneumonia: Due to #2 above. Steffany has been DC'd. Continue supportive care. Febrile overnight: urine and blood culture obtained. Midline removed and tip cultured. Vancomycin and Cefepime started ID consult. Repeat procalcitonin 4) Hyperglycemia: Exacerbated by Steroids and TF. HgbA1c is 6.5. 5) GI and DVT prophylaxis: Will continue Pepcid and Lovenox (T-dose). Critical Care Recommendations: 1. cont mechanical vent support.PEEP at 16, pt with airleak earlier, now fixed. Recheck ABG. 2. maintain PPlat < 30 3. cont proning per protocol 16:8 4. KUB with NGT at [facility], increasing spiration risk. discussed to advance and recheck abdominal xray to confirm gastric position 6. cont sedation with precedex, versed and fentanyl, off propofol due to high TG 7. IV steroids 8. Treatment doses of LMWH for increased D-Dimer and high VTE risk 9. Fever : may be related to aspiration event, BCx and tracheal Cx done, empiric Vancomycin and cefepime started 10. will recheck procalcitonin to JC Parish MD May 14, 2021 10:18
--- NOTE | 2021-05-14 11:00 | NUR ---
Radiology Radiology at bedside for chest xray and abdominal xray.
--- NOTE | 2021-05-14 11:54 | DIREP ---
PROCEDURE:XRAY ABDOMEN SINGLE VW COMPARISON:None. INDICATIONS:NO BOWEL MOVEMENT FINDINGS: BOWEL GAS PATTERN:Nonobstructive bowel gas pattern. Small amount of enteric contrast seen within the distal colon. Endotracheal tube with tip overlying the left upper quadrant. CALCIFICATIONS:None significant. LUNG BASES:Clear. BONES:Normal. OTHER:Surgical clips in the right upper quadrant. CONCLUSION:Nonobstructive bowel gas pattern. Endotracheal tube tip overlying left upper quadrant, in the region of the gastroesophageal junction. Consider advancement. Dictated by: Mary Kate Solares M.D. on 05/14/2021 at 11:50 AM
--- NOTE | 2021-05-14 11:56 | DIREP ---
PROCEDURE:CHEST 1 VIEW COMPARISON:[facility], CR, XRAY CHEST SINGLE VW, 05/12/2021, 03:50 AM. [facility], CR, XRAY CHEST SINGLE VW, 05/06/2021, 08:23 PM. [facility], CR, XRAY CHEST SINGLE VW, 05/01/2021, 10:49 AM. INDICATIONS:pneumonia, ET TUBE RE-POSITION FINDINGS: LUNGS/PLEURA:Endotracheal tube, level with the lower clavicles. Patchy regions of peripheral consolidation, partially improving, diffuse bilateral ground-glass opacities. No effusions.. VASCULATURE:Normal. Unremarkable pulmonary vasculature. CARDIAC:Normal. No cardiac silhouette abnormality or cardiomegaly. MEDIASTINUM:Normal. No visible mass or adenopathy. BONES:Normal. No fracture or visible bony lesion. OTHER:Stable NG tube. EKG leads overlie the chest. CONCLUSION:Findings in keeping with COVID-19 pneumonia/ARDS. Endotracheal tube in good position. Partial clearing of patchy regions of consolidation Dictated by: Josh Infante MD on 05/14/2021 at 11:51 AM
[2021-05-14 12:25] LABS: BILIRUBIN,URINE SMALL (NEGATIVE); UA COLOR YELLOW
[2021-05-14] MEDS: MAXIPIME 2 GM in NS 100ML 100 ML IV SCH ×2 (12:57→21:00)
--- NOTE | 2021-05-14 13:41 | TELE.CONS ---
Consultation Reason for Consult: Reason for Consultation: COVID ARDS Review of Systems Constitutional: Fever; No: Chills, Weakness Eyes: No: Pain, Vision change, Conjunctivae inflammation, Eyelid inflammation, Other, Redness ENT: No: Ear pain, Ear discharge, Nose pain, Nose discharge, Nose congestion, Mouth pain, Mouth swelling, Throat pain, Throat swelling, Other Respiratory: Shortness of breath, SOB with excertion; No: Cough, Dry Cardiovascular: No: Chest Pain, Orthopnea Gastrointestinal: No: Nausea, Vomiting, Abdominal Pain, Diarrhea, Constipation, Melena, Hematochezia, Other Genitourinary: No Dysuria, No Frequency Musculoskeletal: No: back pain, hand pain Skin: No: Jaundice Neurological: No: Weakness, Numbness, Incoordination Allergies: Coded Allergies: ibuprofen (Verified Allergy, Unknown, 04/29/21) naproxen (Verified Allergy, Unknown, 04/29/21) VITALS REVIEW VITALS Vital Sign - Last 24 Hours 05/14/21 05/14/21 05/14/21 05/14/21 07:00 07:15 07:30 07:45 Temp 100.6 100.6 100.8 100.8 Pulse 70 69 69 69 B/P (MAP) 115/57 (76) 120/63 (82) 123/64 (83) 132/69 (90) 121/63 (82) Pulse Ox 94 94 94 94 05/14/21 05/14/21 05/14/21 05/14/21 07:55 07:55 08:00 08:45 Temp 100.9 Pulse 64 64 73 Resp 35 36 B/P (MAP) 122/60 (80) 123/63 (83) Pulse Ox 97 96 98 O2 Delivery Mechanical Ventilator Mechanical Ventilator FiO2 100 100 05/14/21 05/14/21 08:45 10:22 Pulse 73 77 Resp 36 35 Pulse Ox 98 96 VTE VTE Risk Total Score: 5 VTE Risk Score VTE Risk: Score 0-1 = Low Risk (Aggressive mobilization; early ambulation; no VTE prophylaxis required) Score 2: Moderate Risk (Intermittent/Pneumatic Compression Device OR Lovenox/Heparin/Coumadin) Score 3-4: High Risk (Intermittent/Pneumatic Compression Device AND Lovenox/Heparin/Coumadin) Score > or =5: Highest Risk (Intermittent/Pneumatic Compression Device AND Lovenox/Heparin/Coumadin) Antico:Hep/LMWH/Coum/Xarelto: Yes Mechanical device ordered: Yes VTE VTE Present on Admission: No Currently receiving anticoagul: Yes VTE Risk Total Score: 5 Antico:Hep/LMWH/Coum/Xarelto: Yes Mechanical device ordered: Yes Assessment/Plan Assessment/Plan Assessment/Plan This is a 35 year old woman with COVID pneumonia/ARDS. Plan: 1. cont mechanical vent support.PEEP at 16, pt with airleak earlier, now fixed. Recheck ABG. 2. maintain PPlat < 30 3. cont proning per protocol 16:8 4. KUB with NGT at [facility], increasing spiration risk. discussed to advance and recheck abdominal xray to confirm gastric position 6. cont sedation with precedex, versed and fentanyl, off propofol due to high TG 7. IV steroids 8. Treatment doses of LMWH for increased D-Dimer and high VTE risk 9. Fever : may be related to aspiration event, BCx and tracheal Cx done, empiric Vancomycin and cefepime started 10. will recheck procalcitonin to eval Plan reviewed with bedside team including hospitalist Dr. Medina and RT Dulce. Patient seen through remote audiovisual assessment through HIPAA compliant setup. [id number]' CHELA WREN MD May 14, 2021 13:41
[2021-05-14] MEDS: VANCOMYCIN HCL 1.5 GM in NS 250ML 300 ML IV SCH (14:00)
[2021-05-14] MEDS ORDERED: OFIRMEV IV SCH (14:30)
[2021-05-14 14:42] LABS: ABG PCO2 61.1 mmHg (35.0-45.0); ABG PH 7.386 (7.350-7.450); BE(B) 8.5 mmol/L (-2.0-2.0); HCO3act 35.8 mmol/L (22.0-26.0); pO2 51.9 mmHg (80.0-100.0)
--- NOTE | 2021-05-14 15:00 | NUR ---
Supine Patient repositioned from prone to supine at this time with assistance of Aston RN, Jamin Ni PUBLIC HEALTH EDUCATOR, Mary Kate Chino RN, Dulce RT. Pt tolerated well. O2 at 91% on ventilator at previous settings. ET tube in position at 24 @ teeth. OG tube hooked to LIWS. Bilateral soft wrist restraints reapplied. Edema noted to left eye and small abrasion to left ear lobe. Will continue to monitor.
--- NOTE | 2021-05-14 15:25 | DIET.OP ---
Nutrition Asmt/Malnutrit 2-17 Actual Date of Review: May 14, 2021 Nutritional Screening: Other (LOS) Diagnosis: covid pneumonia Pertinent Medical Hx/Surgical: none Subjective Information: pt remains intubated. No longer receiving propofol. RN states that patient has a central line and MD would like TPN recommendations- see below. Pt continues to be proned. Current Diet Order/Nutrition S: NPO Pertinent Meds Current Medications Medications (Trade) Dose Ordered Sig/Davon Route PRN Reason Start Time Stop Time Status Last Admin Dose Admin Remdesivir 200 mg/ Sodium Chloride 140 ml @ 120.69 mls/ hr OT STAT IV 04/28/21 19:53 04/29/21 08:10 DC 04/28/21 19:53 Remdesivir 100 mg/ Sodium Chloride 120 ml @ 111.111 mls/hr Q24HRS IV 04/29/21 20:00 05/02/21 21:05 DC 05/02/21 20:45 Famotidine (Pepcid) 20 mg BID PO 04/28/21 21:00 05/07/21 09:31 DC 05/06/21 08:14 Sucralfate (Carafate) 1 gm ACHS PO 04/28/21 21:00 05/28/21 20:59 05/12/21 21:00 Enoxaparin Sodium (Lovenox) 40 mg Q24HRS SQ 04/28/21 20:00 05/06/21 08:06 DC 05/05/21 21:00 Sucralfate (Carafate) 1 gm STK-MED ONCE PO 04/28/21 20:56 04/28/21 20:56 DC Lorazepam (Ativan) 1 mg Q4HR PRN IV ANXIETY 04/29/21 00:00 05/12/21 09:13 DC 05/06/21 18:45 Lorazepam (Ativan) 0.5 mg Q4HR PRN IV ANXIETY 04/29/21 00:00 05/06/21 09:00 DC Fentanyl Citrate (Sublimaze) 50 mcg STK-MED ONCE .ROUTE 04/29/21 11:37 04/29/21 11:38 DC Fentanyl Citrate (Sublimaze) 12.5 mcg OT ONCE IV 04/29/21 15:00 04/29/21 15:06 DC 04/29/21 13:35 Acetaminophen (Tylenol) 650 mg Q6HR PRN PO PAIN 1 - 3 04/30/21 18:00 05/02/21 18:00 DC 05/01/21 06:28 Dexmedetomidine HCl 200 mcg/ Sodium Chloride 50 ml @ 0 mls/hr IV 05/01/21 10:30 05/01/21 11:28 DC Sodium Chloride 250 ml @ ud STK-MED ONCE .ROUTE 05/01/21 20:40 05/01/21 20:40 DC Acetaminophen (Tylenol) 650 mg Q6HR PRN PO PAIN 1 - 3 05/02/21 20:30 05/08/21 18:01 DC 05/04/21 21:15 Bisacodyl (Dulcolax Ec Tablet) 5 mg STAT STAT PO 05/03/21 13:45 05/03/21 19:05 DC 05/03/21 14:36 Docusate Sodium (Colace) 100 mg BID PO 05/05/21 09:00 05/07/21 09:30 DC 05/06/21 08:14 Lorazepam (Ativan) 2 mg STK-MED ONCE .ROUTE 05/05/21 02:31 05/05/21 02:31 DC Lorazepam (Ativan) 2 mg STK-MED ONCE .ROUTE 05/05/21 03:46 05/05/21 03:47 DC Furosemide (Lasix) 20 mg OT ONCE IV 05/05/21 11:00 05/05/21 11:01 DC 05/05/21 11:20 Lorazepam (Ativan) 2 mg STK-MED ONCE .ROUTE 05/05/21 20:56 05/05/21 20:56 DC Enoxaparin Sodium (Lovenox) 100 mg Q12H SQ 05/06/21 08:30 06/05/21 08:29 05/14/21 07:50 Furosemide (Lasix) 20 mg STAT STAT IV 05/06/21 08:48 05/06/21 09:00 DC 05/06/21 08:48 Insulin Human Regular (Humulin R) 1 unit STK-MED ONCE .ROUTE 05/06/21 19:13 05/06/21 19:14 DC Propofol (Diprivan) 1,000 mg PRN PRN IV SEDATION 05/06/21 20:30 05/08/21 11:39 DC 05/08/21 04:00 Propofol 100 ml @ ud STK-MED ONCE IV 05/06/21 20:19 05/06/21 20:19 DC Vecuronium [place] (Norcuron) 10 mg STK-MED ONCE .ROUTE 05/06/21 22:24 05/06/21 22:24 DC Vecuronium [place] (Norcuron) 10 mg Q6HR PRN IV SHORTNESS OF BREATH 05/06/21 23:00 05/07/21 00:34 DC Vecuronium [place] (Norcuron) 10 mg Q4 PRN IV SHORTNESS OF BREATH 05/07/21 00:30 05/12/21 00:00 DC 05/11/21 20:00 Vecuronium [place] (Norcuron) 10 mg STK-MED ONCE .ROUTE 05/07/21 00:20 05/07/21 00:34 DC Propofol 100 ml @ ud STK-MED ONCE IV 05/07/21 01:53 05/07/21 01:53 DC Norepinephrine Bitartrate 8 mg/ Sodium Chloride 250 ml @ 0 mls/hr DAILY IV 05/07/21 09:00 05/10/21 16:46 DC 05/09/21 09:00 Fentanyl Citrate (Sublimaze) 100 mcg Q1HR IV 05/07/21 04:00 05/07/21 09:58 DC Piperacillin Sod/ Tazobactam Sod 4.5 gm/Sodium Chloride 100 ml @ 100 mls/hr Q6H IV 05/07/21 04:00 05/12/21 09:15 DC 05/11/21 22:00 Norepinephrine Bitartrate (Levophed) 4 mg STK-MED ONCE .ROUTE 05/07/21 04:38 05/07/21 04:38 DC Sodium Chloride 250 ml @ ud STK-MED ONCE .ROUTE 05/07/21 04:38 05/07/21 04:38 DC Fentanyl Citrate (Sublimaze) 100 mcg Q1HR PRN IV PAIN 7 - 10 05/07/21 06:30 05/12/21 09:13 DC 05/07/21 06:41 Fentanyl Citrate 2000 mcg/Sodium Chloride 200 ml @ 0 mls/hr IV 05/07/21 10:00 05/07/21 17:01 DC 05/07/21 10:30 Famotidine (Pepcid) 20 mg BID IV 05/07/21 09:30 06/06/21 09:29 05/14/21 08:57 Docusate Sodium (Colace) 100 mg BID NG 05/07/21 09:30 06/06/21 09:29 05/14/21 08:57 Propofol (Diprivan) 200 mg STK-MED ONCE IV 05/07/21 08:00 05/07/21 11:57 DC Succinylcholine Chloride (Quelicin) 8 mg STK-MED ONCE IV 05/07/21 08:00 05/07/21 11:57 DC Vecuronium [place] (Norcuron) 10 mg STK-MED ONCE IV 05/07/21 08:00 05/07/21 11:57 DC Propofol 100 ml @ ud STK-MED ONCE IV 05/07/21 14:49 05/07/21 14:50 DC Fentanyl Citrate 5000 mcg/Sodium Chloride 500 ml @ 0 mls/hr IV 05/07/21 18:00 06/06/21 17:59 05/13/21 16:21 Propofol 100 ml @ ud STK-MED ONCE IV 05/07/21 19:08 05/07/21 19:08 DC Propofol 100 ml @ ud STK-MED ONCE IV 05/07/21 23:47 05/07/21 23:47 DC Propofol 100 ml @ ud STK-MED ONCE IV 05/08/21 03:45 05/08/21 03:46 DC Propofol 100 ml @ ud STK-MED ONCE IV 05/08/21 07:33 05/08/21 07:34 DC Propofol 100 ml @ ud STK-MED ONCE IV 05/08/21 11:27 05/08/21 11:27 DC Propofol 100 ml @ 27.6 mls/hr PRN PRN IV SEDATION 05/08/21 12:00 06/07/21 11:59 05/14/21 03:30 Acetaminophen (Tylenol) 650 mg Q6HR PRN RC FEVER 05/08/21 22:00 06/07/21 21:59 05/14/21 08:57 Midazolam HCl 50 mg/Sodium Chloride 50 ml @ 2 mls/hr ONCE IV 05/09/21 14:30 05/10/21 09:50 DC 05/09/21 14:30 Hydromorphone HCl (Dilaudid) 2 mg STK-MED ONCE .ROUTE 05/09/21 20:10 05/09/21 20:10 DC Hydromorphone HCl (Dilaudid) 0.5 mg Q4H PRN IV PAIN 7 - 10 05/09/21 20:00 06/08/21 19:59 05/11/21 21:00 Sodium Chloride 100 ml @ ud STK-MED ONCE IV 05/09/21 21:13 05/09/21 21:13 DC Midazolam HCl 100 mg/Sodium Chloride 100 ml @ 0 mls/hr ONCE IV 05/10/21 10:00 05/10/21 10:01 DC 05/10/21 10:55 Furosemide (Lasix) 20 mg BID IV 05/10/21 10:30 05/10/21 12:38 DC 05/10/21 10:55 Furosemide (Lasix) 20 mg STK-MED ONCE .ROUTE 05/10/21 10:48 05/10/21 10:49 DC Vecuronium [place] (Norcuron) 10 mg Q2H PRN IV ventilator dyssynchrony 05/10/21 11:30 06/09/21 11:29 05/14/21 09:59 Furosemide (Lasix) 20 mg BID IV 05/10/21 12:38 06/09/21 10:29 05/14/21 08:57 Norepinephrine Bitartrate 8 mg/ Sodium Chloride 250 ml @ 0 mls/hr DAILY IV 05/11/21 09:00 05/11/21 08:54 DC Midazolam HCl 100 mg/Sodium Chloride 100 ml @ 0 mls/hr IV 05/10/21 17:00 05/11/21 08:57 DC 05/11/21 01:39 Albuterol Sulfate (Ventolin Hfa) 200 inh STK-MED ONCE IH 05/10/21 22:44 05/10/21 22:45 DC Albuterol Sulfate (Ventolin Hfa) 2 inh OT ONCE IH 05/10/21 23:00 05/10/21 23:01 DC 05/10/21 23:15 Norepinephrine Bitartrate 8 mg/ Sodium Chloride 258 ml @ 0 mls/hr IV 05/11/21 08:00 06/10/21 07:59 05/11/21 10:16 Midazolam HCl 100 mg/Sodium Chloride 100 ml @ 0 mls/hr TITRATE IV 05/11/21 09:00 06/10/21 08:59 05/14/21 00:33 Sodium Chloride 1,000 ml @ STK-MED ONCE .ROUTE 05/12/21 19:14 05/12/21 19:14 DC Albuterol Sulfate (Ventolin) 1.25 mg RTQ6 IH 05/14/21 03:00 05/14/21 00:49 DC Albuterol Sulfate (Ventolin) 1.25 mg RTQ6 PRN IH WHEEZING 05/14/21 03:00 06/13/21 02:59 Vancomycin HCl 1.5 gm/Sodium Chloride 300 ml @ 175 mls/hr Q12H IV 05/14/21 12:00 06/13/21 11:59 Cefepime HCl 2 gm/ Sodium Chloride 100 ml @ 100 mls/hr BID IV 05/14/21 10:30 06/13/21 10:29 05/14/21 12:57 Acetaminophen (Ofirmev) 1,000 mg Q8H IV 05/14/21 14:30 06/13/21 14:29 Pertinent Labs Laboratory Tests Test 05/12/21 18:25 05/13/21 00:02 05/13/21 04:24 05/13/21 04:25 Bedside Glucose 110 170 White Blood Count 13.3 10^3/uL Red Blood Count 4.23 10^6/uL Hemoglobin 12.6 g/dL Hematocrit 39.6 % Mean Corpuscular Volume 93.6 fL Mean Corpuscular Hemoglobin 29.8 pg Mean Corpuscular Hemoglobin Concent 31.8 g/dL Red Cell Distribution Width 12.1 % Platelet Count 204 10^3/uL Mean Platelet Volume 10.4 fL Neutrophils (%) (Auto) 95.0 % Lymphocytes (%) (Auto) 3.2 % Monocytes (%) (Auto) 1.5 % Neutrophils # (Auto) 12.7 10^3/uL Lymphocytes # (Auto) 0.43 10^3/uL1 Monocytes # (Auto) 0.2 10^3/uL Absolute Immature Granulocyte (auto 0.06 10^3 u/L Absolute Eosinophils (auto) 0.0 10^3/uL Immature Granulocytes % 0.50 % Eosinophils % 0.2 % Basophils % 0.1 % Basophils # 0.0 10^3/uL Sodium Level 147 mmol/L Potassium Level 4.0 mmol/L Chloride Level 105.0 mmol/L Carbon Dioxide Level 38.6 mmol/L Anion Gap 7.4 Blood Urea Nitrogen 20 mg/dL Creatinine 0.49 mg/dL Estimated GFR () 172.9 Est GFR (CKD-EPI)(Non-Afr Armenian) 142.9 BUN/Creatinine Ratio 40.0 Glucose Level 165 mg/dL Calcium Level 8.5 mg/dL Phosphorus Level 2.5 mg/dL Magnesium Level 2.3 mg/dL Total Bilirubin 0.5 mg/dL Aspartate Amino Transf (AST/SGOT) 25 U/L Alanine Aminotransferase (ALT/SGPT) 48 U/L Alkaline Phosphatase 70 U/L Total Protein 6.6 g/dL Albumin 2.1 g/dL Globulin 4.5 Albumin/Globulin Ratio 0.466 Blood Gas Sample Site ART LINE Blood Gas pH 7.389 Blood Gas PCO2 61.8 mmHg Blood Gas PO2 52.5 mmHg Blood Gas HCO3 36.5 mmol/L Blood Gas Base Excess 9.3 mmol/L Arterial Blood Oxygen Saturation 84.4 % Deoxyhemoglobin 15.4 % Carboxyhemoglobin 0.6 % Methemoglobin 0.5 % Total Hemoglobin 13.0 % Total Oxygen Concentration 15.3 % Blood Gas Temperature 37.0 Oxygen Delivery Method (LAB) VENTILATOR Blood Gas Vent Mode AC+ Blood Gas Vent Rate 32 FiO2 100 % Blood Gas Tidal Volume 320 ML Blood Gas PEEP 14.0 CMH2O Total Carbon Dioxide 38.4 mmol/L Triglycerides Level 271 mg/dL Test 05/13/21 12:22 05/13/21 18:13 05/14/21 04:30 05/14/21 04:35 Bedside Glucose 147 128 White Blood Count 16.1 10^3/uL Red Blood Count 4.69 10^6/uL Hemoglobin 13.8 g/dL Hematocrit 44.3 % Mean Corpuscular Volume 94.5 fL Mean Corpuscular Hemoglobin 29.4 pg Mean Corpuscular Hemoglobin Concent 31.2 g/dL Red Cell Distribution Width 12.2 % Platelet Count 253 10^3/uL Mean Platelet Volume 10.9 fL Sodium Level 146 mmol/L Potassium Level 4.1 mmol/L Chloride Level 104.0 mmol/L Carbon Dioxide Level 39.8 mmol/L Anion Gap 6.3 Blood Urea Nitrogen 24 mg/dL Creatinine 0.54 mg/dL Estimated GFR () 154.6 Est GFR (CKD-EPI)(Non-Afr Armenian) 127.7 BUN/Creatinine Ratio 44.0 Glucose Level 131 mg/dL Calcium Level 8.8 mg/dL Total Bilirubin 0.5 mg/dL Aspartate Amino Transf (AST/SGOT) 28 U/L Alanine Aminotransferase (ALT/SGPT) 45 U/L Alkaline Phosphatase 67 U/L Total Protein 7.1 g/dL Albumin 2.4 g/dL Globulin 4.7 Albumin/Globulin Ratio 0.510 Triglycerides Level 314 mg/dL Blood Gas Sample Site ART LINE Blood Gas pH 7.280 Blood Gas PCO2 84.0 mmHg Blood Gas PO2 60.1 mmHg Blood Gas HCO3 38.6 mmol/L Blood Gas Base Excess 8.4 mmol/L Lucas Test N/A Arterial Blood Oxygen Saturation 88.1 % Deoxyhemoglobin 11.8 % Carboxyhemoglobin 0.4 % Methemoglobin 0.3 % Total Hemoglobin 14.0 % Total Oxygen Concentration 17.2 % Blood Gas Temperature 37 Oxygen Delivery Method (LAB) VENT Blood Gas Vent Mode AC/VC Blood Gas Vent Rate 35 FiO2 100 % Blood Gas Tidal Volume 320 ML Blood Gas PEEP 16 CMH2O Total Carbon Dioxide 41.2 mmol/L Test 05/14/21 12:00 05/14/21 12:10 05/14/21 14:00 Bedside Glucose 151 Urine Collection Type UNKNOWN Urine Color YELLOW Urine Appearance CLEAR Urine Bilirubin SMALL Urine Ictotest POSITIVE Urine Ketones 15 mg/dL Urine Specific [place] >=1.030 Urine pH 5.5 Urine Protein NEGATIVE Urine Urobilinogen 2.0 E.U./dL Urine Nitrate NEGATIVE Urine Leukocyte Esterase NEGATIVE Urine Glucose (Auto)(UA) NEGATIVE Urine Blood NEGATIVE Nasal Adenovirus (PCR) NotDetected Nasal Coronavirus Type 229E (PCR) NotDetected Nasal Coronavirus Type HKU1 (PCR) NotDetected Nasal Coronavirus Type NL63 (PCR) NotDetected Nasal Coronavirus Type OC43 (PCR) NotDetected Nasal Enterovirus/Rhinovirus (PCR) NotDetected Nasal Influenza Type A (H1) (PCR) NotDetected Nasal Influenza Type A (H3) (PCR) NotDetected Nasal Swab Influenza Virus B (PCR) NotDetected Nasal Parainfluenza Type 1 (PCR) NotDetected Nasal Parainfluenza Type 2 (PCR) NotDetected Nasal Parainfluenza Type 3 (PCR) NotDetected Nasal Parainfluenza Type 4 (PCR) NotDetected Nasal Resp Syncytial Virus (PCR) NotDetected Nasal Bordetella pertussis DNA (PCR NotDetected Nasal Chlamydophila pneumoniae (PCR NotDetected Nasal Human Metapneumovirus (PCR) NotDetected Nasal Mycoplasma pneumoniae (PCR) NotDetected Nasal SARS-CoV-2 (PCR) DETECTED Influenza Type A (H1N1/09) (PCR) NotDetected Blood Gas Sample Site ART LINE Blood Gas pH 7.386 Blood Gas PCO2 61.1 mmHg Blood Gas PO2 51.9 mmHg Blood Gas HCO3 35.8 mmol/L Blood Gas Base Excess 8.5 mmol/L Lucas Test N/A Arterial Blood Oxygen Saturation 86.5 % Deoxyhemoglobin 13.4 % Carboxyhemoglobin 0.5 % Methemoglobin 0.0 % Total Hemoglobin 14.1 % Total Oxygen Concentration 17.0 % Blood Gas Temperature 37.0 Oxygen Delivery Method (LAB) VENT Blood Gas Vent Mode AC Blood Gas Vent Rate 35 FiO2 100 % Blood Gas Tidal Volume 320 ML Blood Gas PEEP 16.0 CMH2O Total Carbon Dioxide 37.7 mmol/L Height (Feet): 5 Height (Inches): 5 Current Weight: 200 Usual Weight: 225 %IBW: 162 Recent Weight Change: Yes (wt down from admission but has been stable between 199-203# the last 4 days) Weight Status: Obese GI Symptoms: Constipation (pt with no BM since the 9th per RN) Food Allergies: No Cultural/Ethnic/Orthodox Cookie: none known Usual Diet at Home: regular Skin Integrity/Comment: No Current %PO: NPO Calories/Kcals/Kg: abbe st eq Kcals Calculated: 1750 kcal Protein g/k-1.5 g/kg IBW Protein Calculated: 56-85g Fluid: ml: 2363 ml (25 ml/kg) Nutritional Problem: Nutr. Problems Present Problems: Inadequate oral intake Etiology: intubation and proning Signs/Symptoms: tube feeds not meeting needs due to being held while pt is proned. Wt trending down from admission wt. RD Comments: TPN recommendations: Start Clinimix 15/5% with MVI at 45 ml/hr and increase 10cc Q12h until goal rate of 85 ml/hr is met. Recommend 250 ml of 20% lipid emulsion q48h at 15 ml/hr. Clinimix and lipid emulsion combined will provide 1700 kcal, 306g carbs, 102g protein, and 25g fat to meet 100% of patient's nutrition needs. Consider running trickle feeds of Jevity 1.2 at 10 ml/hr to maintain gut integrity Continue to monitor electrolytes and triglycerides. Monitor BG and correct as indicated. Expected Outcomes TPN initiated and up to goal rate in 48 hrs. discharge goal is pending Malnutrtion/Nutrition Risk Edu: No MD Notificiation Needed?: No Viviane Martini May 14, 2021 15:25
--- NOTE | 2021-05-14 16:16 | DIREP ---
PROCEDURE:CHEST 1 VIEW COMPARISON:[facility], CR, XRAY CHEST SINGLE VW, 05/14/2021, 10:55 AM. INDICATIONS:CENTRAL LINE PLACEMENT FINDINGS: LUNGS/PLEURA:Diffuse patchy airspace opacities throughout all lobes. No effusion or pneumothorax. VASCULATURE:Normal. Unremarkable pulmonary vasculature. CARDIAC:Normal. No cardiac silhouette abnormality or cardiomegaly. MEDIASTINUM:Normal. No visible mass or adenopathy. BONES:Normal. No fracture or visible bony lesion. OTHER:Endotracheal tube with tip overlying the mid trachea. Enteric tube with tip overlying the left upper quadrant, though the side port overlies the distal esophagus. Left subclavian catheter tip overlying the cavoatrial junction. CONCLUSION:1. Patchy diffuse airspace opacities, consistent with multi lobar pneumonia to include from atypical organisms such as COVID-19. 2. Lines and tubes as above. The side port of the enteric tube overlies the distal esophagus. Consider advancement. Dictated by: Mary Kate Solares M.D. on 05/14/2021 at 04:13 PM
[2021-05-14] MEDS: OFIRMEV IV PRN ×2 (16:30→21:40)
--- NOTE | 2021-05-14 16:45 | PRM.OPH ---
OPERATIVE REPORT OPERATIVE REPORT Preop diagnosis Hypertension, Covid, malnutrition, failure to thrive Postoperative diagnosis Same Procedure Left subclavian triple-lumen catheter placement Surgeon Dr. Esquivel Anesthesia 5 mL 1% lidocaine EBL Minimal Specimens None Complications None The patient was initially seen and identified in her ICU bed after having been flipped from a prone position for emergent line placement. The left upper chest and neck were prepped with ChloraPrep and a sterile field created in standard fashion using materials in the kit. The patient was placed in a Trendelenburg position. The area initially for the placement of the needle through the skin was then injected with 5 mL of 1% lidocaine with epi along with infiltration of the underlying tissue. The needle was placed into the skin and then directed underneath the clavicle and on the first pass was placed directly into the left subclavian vein. With blood return. Wire was then passed through the needle without any difficulty. A small mary kay in the skin was made and the needle was removed while leaving the wire. A dilator was placed over the wire and dilated the track while moving the wire and the dilator at the same time. Then the central line was placed over the wire. The wire was then removed. All 3 ports had good blood return and were flushed with saline. It was secured to her skin using 3-0 silk sutures applied in the kit. The skin was then washed and dried using ChloraPrep. A sterile dressing was then placed. Patient was then sat up and a chest x-ray ordered which was reviewed before leaving the room. No evidence pneumothorax and good line placement. NGOZI ESQUIVEL MD May 14, 2021 16:45
[2021-05-14] MEDS ORDERED: INFUVITE ADULT IV SCH (17:30)
[2021-05-14] MEDS ORDERED: CLINIMIX IV SCH (17:30)
[2021-05-14] MEDS: SUBLIMAZE IV SCH (17:33)
[2021-05-14] MEDS: PRECEDEX 400 MCG/100 ML INJECT 100 ML IV SCH ×2 (17:33→21:25)
[2021-05-14] MEDS: LIPID EMULSION IV SCH (18:30)
--- NOTE | 2021-05-14 18:45 | NUR ---
REPORT RECEIVED FROM ARMAAN BRAY RN. ASSUMED PT CARE.
--- NOTE | 2021-05-14 21:28 | NUR ---
TELEPHONE ORDER PER DR HAYES TO ADMIN KETOROLAC 30MG IV OT NOW FOR FEVER. TELEPHONE ORDER RBAV.
[2021-05-14] MEDS ORDERED: TORADOL IV PRN (21:30)
--- NOTE | 2021-05-14 21:39 | NUR ---
DR HAYES AT BEDSIDE. VERBAL ORDER TO ADMIN TYLENOL IV 1000MG NOW. VERBAL ORDER RBAV.
[2021-05-14] MEDS ORDERED: WATER ONE (22:50)
[2021-05-15] VITALS (96 sets, daily range): BP systolic 93–147; BP diastolic 48–79
[2021-05-15] MEDS: VANCOMYCIN HCL 1.5 GM in NS 250ML 300 ML IV SCH ×2 (00:57→12:00)
[2021-05-15] MEDS: NORCURON IV PRN ×10 (00:57→23:52)
[2021-05-15] MEDS: PRECEDEX 400 MCG/100 ML INJECT 100 ML IV SCH ×3 (02:02→15:53)
[2021-05-15] MEDS ORDERED: NS 100ML 100 ML IV ONE (04:22)
[2021-05-15] MEDS: OFIRMEV IV PRN ×2 (05:30→15:50)
[2021-05-15 05:48] LABS: BASOPHIL % 0.1 % (0.0-0.2); EOSINOPHIL # 0.3 10^3/uL (0.0-0.2); EOSINOPHIL % 2.6 % (0.0-5.0); LYMPHOCYTES # 1.61 10^3/uL1 (1.0-4.8); LYMPHOCYTES % 13.3 % (24.0-44.0); MEAN CORP HGB 29.1 pg (26-34); MONOCYTES # 0.5 10^3/uL (0.3-0.8); MONOCYTES % 4.4 % (5.0-12.0); NEUTROPHIL # 9.6 10^3/uL (1.8-7.7); NEUTROPHILS % 79.6 % (41.0-85.0); PLATELET COUNT 219 10^3/uL (150-400); RED CELL DISTRIBUTION WIDTH 12.8 % (11.5-14.5)
[2021-05-15 06:07] LABS: CALCIUM 8.4 mg/dL (8.4-10.5); CARBON DIOXIDE 37.2 mmol/L (20.0-32)
[2021-05-15 06:28] LABS: ABG PCO2 73.1 mmHg (35.0-45.0); BE(B) 11.9 mmol/L (-2.0-2.0); HCO3act 40.4 mmol/L (22.0-26.0)
--- NOTE | 2021-05-15 06:55 | NUR ---
REPORT TO KULDIP ROUSSEAU RN. PT CARE RELINQUISHED.
--- NOTE | 2021-05-15 08:02 | DIREP ---
PROCEDURE:CHEST 1 VIEW COMPARISON:[facility], CR, XRAY CHEST SINGLE VW, 05/14/2021, 03:11 PM. INDICATIONS:COVID PNEUMONIA FINDINGS: Portable frontal view of the chest is provided. LUNGS/PLEURA:The degree of aeration in the bilateral lungs is unchanged. Multifocal bilateral ground-glass infiltrates CARDIAC/MEDIASTINUM:The cardiomediastinal silhouette is stable. LINES: Endotracheal tube:Stable Enteric tube: Stable Central line:Stable left central line Other:Overlying precordial cardiac monitoring leads. CONCLUSION:Stable single-view of the chest Dictated by: Jamin Jennings M.D. on 05/15/2021 at 08:00 AM
[2021-05-15 08:33] LABS: BE(B) 4.8 mmol/L (-2.0-2.0); HCO3act 32.7 mmol/L (22.0-26.0); pO2 59.7 mmHg (80.0-100.0)
[2021-05-15] MEDS: LOVENOX SQ SCH ×2 (08:44→20:30)
[2021-05-15] MEDS: LASIX IV SCH ×2 (08:45→20:56)
[2021-05-15] MEDS: PEPCID IV SCH ×2 (08:45→20:56)
[2021-05-15] MEDS: MAXIPIME 2 GM in NS 100ML 100 ML IV SCH ×2 (08:46→20:56)
[2021-05-15] MEDS: COLACE NG SCH ×2 (08:46→20:56)
[2021-05-15] MEDS ORDERED: DEXAMETHASONE 10 MG/ML VIAL IV SCH (09:00)
--- NOTE | 2021-05-15 10:00 | NUR ---
DECREASED LEVOPHED TO 3 MCG/MIN BP 129/70
--- NOTE | 2021-05-15 10:07 | NUR ---
TEMP 100.9 RECTAL TEMP ICE PACKS PLACED UNDER ARMS IV TYLENOL NOT DUE.
[2021-05-15] MEDS: LEVOPHED 8 MG in NS 250ML 250 ML IV SCH (10:17)
--- NOTE | 2021-05-15 10:50 | NUR ---
TELEMED CONSULT ROUNDS DR. GOODMAN ON TELE MONITOR AT BEDSIDE UPDATED ON PATIENT STATUS. NEW ORDERS RECEIVED TO INCREASE FENTANYL UP TO 300MCG/HR TO ENSURE PATIENT IS SEDATED WHILE RECEIVED VECURONIUM PUSHES.
[2021-05-15] MEDS: TYLENOL RC PRN ×2 (10:55→23:52)
--- NOTE | 2021-05-15 11:04 | NUR ---
LEVOPHED DECREASED TO 2 MCG/MIN BP 120/67 FENTANYL DRIP INCREASED TO 225 MCG/HR
--- NOTE | 2021-05-15 11:41 | PRM.PN ---
Subjective Subjective Date: May 15, 2021 Time: 11:40 Subjective Multidisciplinary ICU rounds conducted with RN, ICU RT, critical care telemedicine patient examined at bedside VTE VTE Risk Total Score: 5 VTE Risk Score VTE Risk: Score 0-1 = Low Risk (Aggressive mobilization; early ambulation; no VTE prophylaxis required) Score 2: Moderate Risk (Intermittent/Pneumatic Compression Device OR Lovenox/Heparin/Coumadin) Score 3-4: High Risk (Intermittent/Pneumatic Compression Device AND Lovenox/Heparin/Coumadin) Score > or =5: Highest Risk (Intermittent/Pneumatic Compression Device AND Lovenox/Heparin/Coumadin) Antico:Hep/LMWH/Coum/Xarelto: Yes Mechanical device ordered: Yes Review of Systems Constitutional: No: Fever, Chills, Weakness Eyes: No: Pain, Vision change, Conjunctivae inflammation, Eyelid inflammation, Other, Redness ENT: No: Ear pain, Ear discharge, Nose pain, Nose discharge, Nose congestion, Mouth pain, Mouth swelling, Throat pain, Throat swelling, Other Respiratory: No: Cough, Dry, Shortness of breath, SOB with excertion Cardiovascular: No: Chest Pain, Orthopnea Gastrointestinal: No: Nausea, Vomiting, Abdominal Pain, Diarrhea, Constipation, Melena, Hematochezia, Other Genitourinary: No Dysuria, No Frequency Musculoskeletal: No: back pain, hand pain Skin: No: Jaundice Neurological: No: Weakness, Numbness, Incoordination Other limited by intubation and sedation Allergies: Coded Allergies: ibuprofen (Verified Allergy, Unknown, 04/29/21) naproxen (Verified Allergy, Unknown, 04/29/21) Objective Vitals and I/O Vital Sign - Last 24 Hours 05/15/21 05/15/21 05/15/21 05/15/21 07:00 07:15 07:30 07:40 Temp 100.6 100.6 100.6 Pulse 67 68 72 Resp 18 17 16 B/P (MAP) 119/70 (86) 116/68 (84) 123/70 (87) Pulse Ox 95 93 96 FiO2 100 05/15/21 05/15/21 05/15/21 05/15/21 07:40 07:45 07:56 08:00 Temp 100.6 100.6 100.6 Pulse 79 82 80 Resp 14 35 35 B/P (MAP) 127/72 (90) 128/77 (94) 126/79 (95) 115/65 (82) 119/66 (83) Pulse Ox 95 95 95 O2 Delivery Mechanical Ventilator 05/15/21 05/15/21 05/15/21 05/15/21 08:15 09:09 09:09 10:31 Temp 100.6 Pulse 72 69 69 90 Resp 35 36 36 35 B/P (MAP) 107/57 (74) Pulse Ox 95 97 97 93 O2 Delivery Mechanical Ventilator FiO2 100 100 100 Intake and Output 05/15/21 07:00 Intake Total 1705 ml Output Total 1300 ml Balance 405 ml General: Other (Intubated sedated.) HEENT: Atraumatic, PERRLA, EOMI Neck: Supple, No JVD Lungs: Other (Coarse bilateral breath sounds, respirations non labored) Heart: No murmurs Abdomen: Normal bowel sounds, Soft Extremities: No clubbing, No cyanosis Skin: No rashes, No breakdown Neuro: Normal speech, Strength at 5/5 X4 ext, Other (Intubated sedated.) Psych/Mental Status: Other (Intubated sedated.) All Results(Lab/Rad) Laboratory Tests Test 05/02/21 06:37 05/02/21 08:25 White Blood Count 7.6 10^3/uL Red Blood Count 4.62 10^6/uL Hemoglobin 13.6 g/dL Hematocrit 40.6 % Mean Corpuscular Volume 87.9 fL Mean Corpuscular Hemoglobin 29.4 pg Mean Corpuscular Hemoglobin Concent 33.5 g/dL Red Cell Distribution Width 12.0 % Platelet Count 268 10^3/uL Mean Platelet Volume 10.5 fL Neutrophils (%) (Auto) 82.9 % Lymphocytes (%) (Auto) 11.7 % Monocytes (%) (Auto) 5.4 % Neutrophils # (Auto) 6.3 10^3/uL Lymphocytes # (Auto) 0.89 10^3/uL1 Monocytes # (Auto) 0.4 10^3/uL Absolute Immature Granulocyte (auto 0.12 10^3 u/L Absolute Eosinophils (auto) 0.0 10^3/uL Immature Granulocytes % 1.60 % Eosinophils % 0.0 % Basophils % 0.0 % Basophils # 0.0 10^3/uL Sodium Level 140 mmol/L Potassium Level 4.7 mmol/L Chloride Level 104.0 mmol/L Carbon Dioxide Level 27.6 mmol/L Anion Gap 13.1 Blood Urea Nitrogen 14 mg/dL Creatinine 0.62 mg/dL Estimated GFR () 131.8 Est GFR (CKD-EPI)(Non-Afr Ukrainian) 108.9 BUN/Creatinine Ratio 22.0 Glucose Level 121 mg/dL Calcium Level 8.8 mg/dL Total Bilirubin 0.4 mg/dL Aspartate Amino Transf (AST/SGOT) 26 U/L Alanine Aminotransferase (ALT/SGPT) 37 U/L Alkaline Phosphatase 42 U/L Total Protein 6.7 g/dL Albumin 2.5 g/dL Globulin 4.2 Albumin/Globulin Ratio 0.595 Blood Gas Sample Site RT RADIAL ARTERY Blood Gas pH 7.405 Blood Gas PCO2 41.1 mmHg Blood Gas PO2 82.5 mmHg Blood Gas HCO3 25.2 mmol/L Blood Gas Base Excess 0.4 mmol/L Lucas Test POSITIVE Arterial Blood Oxygen Saturation 95.5 % Deoxyhemoglobin 4.5 % Carboxyhemoglobin 0.6 % Methemoglobin 0.3 % Total Hemoglobin 14.6 % Total Oxygen Concentration 19.5 % Blood Gas Temperature 37 Oxygen Delivery Method (LAB) BIPAP15/7 FiO2 99 % Total Carbon Dioxide 26.4 mmol/L Current Medications Medications (Trade) Dose Ordered Sig/Davon Route PRN Reason Start Time Stop Time Status Last Admin Dose Admin Remdesivir 200 mg/ Sodium Chloride 140 ml @ 120.69 mls/ hr OT STAT IV 04/28/21 19:53 04/29/21 08:10 DC 04/28/21 19:53 Remdesivir 100 mg/ Sodium Chloride 120 ml @ 111.111 mls/hr Q24HRS IV 04/29/21 20:00 05/02/21 21:05 05/01/21 20:50 Famotidine (Pepcid) 20 mg BID PO 04/28/21 21:00 05/28/21 20:59 05/02/21 09:29 Sucralfate (Carafate) 1 gm ACHS PO 04/28/21 21:00 05/28/21 20:59 05/02/21 07:30 Enoxaparin Sodium (Lovenox) 40 mg Q24HRS SQ 04/28/21 20:00 05/28/21 19:59 05/01/21 20:50 Sucralfate (Carafate) 1 gm STK-MED ONCE PO 04/28/21 20:56 04/28/21 20:56 DC Lorazepam (Ativan) 1 mg Q4HR PRN IV ANXIETY 04/29/21 00:00 05/29/21 00:00 04/30/21 22:30 Lorazepam (Ativan) 0.5 mg Q4HR PRN IV ANXIETY 04/29/21 00:00 05/29/21 00:00 Fentanyl Citrate (Sublimaze) 50 mcg STK-MED ONCE .ROUTE 04/29/21 11:37 04/29/21 11:38 DC Fentanyl Citrate (Sublimaze) 12.5 mcg OT ONCE IV 04/29/21 15:00 04/29/21 15:06 DC 04/29/21 13:35 Acetaminophen (Tylenol) 650 mg Q6HR PRN PO PAIN 1 - 3 04/30/21 18:00 05/02/21 18:00 05/01/21 06:28 Dexmedetomidine HCl 200 mcg/ Sodium Chloride 50 ml @ 0 mls/hr IV 05/01/21 10:30 05/01/21 11:28 DC Sodium Chloride 250 ml @ ud STK-MED ONCE .ROUTE 05/01/21 20:40 05/01/21 20:40 DC Course Sepsis Screening Results: Posi: POSITIVE++ Sepsis Qualifier/Stage: SEVERE SEPSIS RISK Duration or Total Time Spent w: 60min Vitals & review Data Vital Sign - Last 24 Hours 05/02/21 05/02/21 05/02/21 05/02/21 08:00 08:07 08:15 08:22 Pulse 64 45 47 83 Resp 24 21 19 33 B/P (MAP) 104/59 (74) Pulse Ox 93 95 95 86 O2 Delivery S/T FiO2 100 05/02/21 05/02/21 05/02/21 05/02/21 08:31 08:37 08:45 08:52 Pulse 69 68 65 75 Resp 24 31 30 35 B/P (MAP) 137/87 (104) Pulse Ox 95 95 93 91 05/02/21 05/02/21 05/02/21 05/02/21 08:54 09:00 09:00 09:07 Pulse 62 64 64 Resp 10 24 38 B/P (MAP) 119/74 (89) Pulse Ox 89 93 89 O2 Delivery Bi-pap Bi-pap O2 Flow Rate 100.00 FiO2 99 05/02/21 05/02/21 05/02/21 05/02/21 09:10 09:16 09:22 09:30 Pulse 106 62 63 83 Resp 26 29 32 29 B/P (MAP) 160/72 (101) 135/77 (96) Pulse Ox 89 89 90 81 O2 Delivery Comfort Doug O2 Flow Rate 50.00 FiO2 100 05/02/21 05/02/21 05/02/21 05/02/21 09:37 09:46 09:52 10:00 Pulse 73 74 70 55 Resp 16 34 27 16 B/P (MAP) 174/107 (129) Pulse Ox 85 82 83 95 O2 Delivery S/T FiO2 100 05/02/21 05/02/21 05/02/21 05/02/21 10:00 10:07 10:15 10:22 Pulse 60 66 68 65 Resp 23 36 23 B/P (MAP) 115/77 (90) 114/79 (91) Pulse Ox 92 93 92 92 Laboratory Tests Test 05/01/21 04:32 05/01/21 11:20 05/02/21 06:37 05/02/21 08:25 White Blood Count 10.2 10^3/uL 7.6 10^3/uL Red Blood Count 4.50 10^6/uL 4.62 10^6/uL Hemoglobin 13.3 g/dL 13.6 g/dL Hematocrit 39.6 % 40.6 % Mean Corpuscular Volume 88.0 fL 87.9 fL Mean Corpuscular Hemoglobin 29.6 pg 29.4 pg Mean Corpuscular Hemoglobin Concent 33.6 g/dL 33.5 g/dL Red Cell Distribution Width 12.1 % 12.0 % Platelet Count 234 10^3/uL 268 10^3/uL Mean Platelet Volume 10.4 fL 10.5 fL Sodium Level 139 mmol/L 140 mmol/L Potassium Level 3.9 mmol/L 4.7 mmol/L Chloride Level 105.0 mmol/L 104.0 mmol/L Carbon Dioxide Level 26.8 mmol/L 27.6 mmol/L Anion Gap 11.1 13.1 Blood Urea Nitrogen 12 mg/dL 14 mg/dL Creatinine 0.56 mg/dL 0.62 mg/dL Estimated GFR () 148.2 131.8 Est GFR (CKD-EPI)(Non-Afr Ukrainian) 122.5 108.9 BUN/Creatinine Ratio 21.0 22.0 Glucose Level 87 mg/dL 121 mg/dL Calcium Level 8.8 mg/dL 8.8 mg/dL Total Bilirubin 0.5 mg/dL 0.4 mg/dL Aspartate Amino Transf (AST/SGOT) 36 U/L 26 U/L Alanine Aminotransferase (ALT/SGPT) 39 U/L 37 U/L Alkaline Phosphatase 43 U/L 42 U/L Total Protein 6.7 g/dL 6.7 g/dL Albumin 2.5 g/dL 2.5 g/dL Globulin 4.2 4.2 Albumin/Globulin Ratio 0.595 0.595 Blood Gas Sample Site RT RADIAL ARTERY RT RADIAL ARTERY Blood Gas pH 7.459 7.405 Blood Gas PCO2 31.9 mmHg 41.1 mmHg Blood Gas PO2 86.7 mmHg 82.5 mmHg Blood Gas HCO3 22.1 mmol/L 25.2 mmol/L Blood Gas Base Excess -0.8 mmol/L 0.4 mmol/L Lucas Test POSITIVE POSITIVE Arterial Blood Oxygen Saturation 96.2 % 95.5 % Deoxyhemoglobin 3.8 % 4.5 % Carboxyhemoglobin 0.1 % 0.6 % Methemoglobin 0.1 % 0.3 % Total Hemoglobin 14.8 % 14.6 % Total Oxygen Concentration 20.0 % 19.5 % Blood Gas Temperature 37.0 37 Oxygen Delivery Method (LAB) BIPAP BIPAP15/[address] FiO2 80 % 99 % Total Carbon Dioxide 23.1 mmol/L 26.4 mmol/L Neutrophils (%) (Auto) 82.9 % Lymphocytes (%) (Auto) 11.7 % Monocytes (%) (Auto) 5.4 % Neutrophils # (Auto) 6.3 10^3/uL Lymphocytes # (Auto) 0.89 10^3/uL1 Monocytes # (Auto) 0.4 10^3/uL Absolute Immature Granulocyte (auto 0.12 10^3 u/L Absolute Eosinophils (auto) 0.0 10^3/uL Immature Granulocytes % 1.60 % Eosinophils % 0.0 % Basophils % 0.0 % Basophils # 0.0 10^3/uL Current Medications Medications (Trade) Dose Ordered Sig/Davon PRN Reason Start Time Stop Time Status Last Admin Acetaminophen (Tylenol) 650 mg Q6HR PRN PAIN 1 - 3 04/30/21 18:00 05/02/21 18:00 05/01/21 06:28 Remdesivir 100 mg/ Sodium Chloride 120 ml @ 111.111 mls/hr Q24HRS 04/29/21 20:00 05/02/21 21:05 05/01/21 20:50 LEVEL 1 SEPSIS INFECTION CRITE: ABX Therapy, Flu-Pneumonia LEVEL 2-SIRS (LIST ALL THAT AP: RR>20/min, WBC>[id number] Cardiovascular Evidence: Not Assessed or None Hematologic Evidence: None/Not assessed Hepatic Evidence: None/Not assessed Metabolic Evidence: None/Not assessed Neurological Evidence: None/Not assessed Respiratory Evidence: Acute Resp failure, Need for O2 to keep>90%, O2 SAT<90room air Renal Evidence: None/Not assessed O2 Sat by Pulse Oximetry: 93 Respiratory End-tidal CO2: 41 Oxygen Flow Rate: 24.00 Assessment/Plan Assessment/Plan Assessment/Plan This is a 35 year old woman with COVID pneumonia/ARDS. ASSESSMENT / PLAN: 1) Acute Hypoxemic Respiratory Failure / Severe ARDS: Pt remains intubated (since 05/06/21) and sedated at this time. Will continue VENT management as per Tele-ICU Line Installation Supervisor. 2) COVID-19 +: Pt has completed Tx with Remdesivir, and remains on Dexamethasone for now. She would benefit from ECMO and/or lung transplant evaluation. However, due to the Pandemic and COVID surge, no beds are available for transfer to a Higher Level of Care in [place], [place], or [place] at this time. She still remains on the "wait list" for several facilities 3) BL Pneumonia: Due to #2 above. Zosyn has been DC'd. Continue supportive care. Febrile overnight: urine and blood culture obtained. Midline removed and tip cultured. Vancomycin and Cefepime started ID consult. Repeat procalcitonin 0.17 4) Hyperglycemia: Exacerbated by Steroids and TF. HgbA1c is 6.5. 5) GI and DVT prophylaxis: Will continue Pepcid and Lovenox (T-dose). Critical Care Recommendations: Refractory ARDS. Patient is still treated with IV steroids for Covid. Empiric vancomycin and cefepime were started because of persistent fever. Cultures are pending. She continues to be proned as tolerated, heavily sedated and paralyzed. With the patient becoming tachycardic and afebrile numerous, concern for inadequate sedation. Propofol was discontinued because of hypertriglyceridemia. I encouraged the team to increase fentanyl and Versed as needed. No changes were made to the ventilator today On treatment doses of enoxaparin Bedside team continues to update the family regularly. Family is aware of the patient's poor prognosis. ID Recommendations: -follow Bcx and midline tip cultures -check D dimer and if very high then look for any thromboembolic events -check HIV status -if LDH is very high then consider evaluation for PCP Pneumonia. -if remains febrile then Add Micafungin 100 mg q24 -cont Vanc and Cefepime for now. duration typically 7-10 days JC HAYES MD May 15, 2021 11:41
--- NOTE | 2021-05-15 12:30 | NUR ---
FENTANYL DRIP INCREASED TO 250 MCG/HR
--- NOTE | 2021-05-15 15:20 | NUR ---
POSITIONED IN PRONE POSITION WITH 5 PERSON ASSIST. PATIENT TOLERATED WELL. REDNESS NOTED TO SACRUM.
--- NOTE | 2021-05-15 15:47 | TELE.CONS ---
VITALS REVIEW VITALS Vital Sign - Last 24 Hours 05/15/21 05/15/21 05/15/21 05/15/21 07:00 07:15 07:30 07:40 Temp 100.6 100.6 100.6 Pulse 67 68 72 Resp 18 17 16 B/P (MAP) 119/70 (86) 116/68 (84) 123/70 (87) Pulse Ox 95 93 96 FiO2 100 05/15/21 05/15/21 05/15/21 05/15/21 07:40 07:45 07:56 08:00 Temp 100.6 100.6 100.6 Pulse 79 82 80 Resp 14 35 35 B/P (MAP) 127/72 (90) 128/77 (94) 126/79 (95) 115/65 (82) 119/66 (83) Pulse Ox 95 95 95 O2 Delivery Mechanical Ventilator 05/15/21 05/15/21 05/15/21 05/15/21 08:15 08:30 08:45 09:00 Temp 100.6 100.6 100.8 100.8 Pulse 72 70 71 66 Resp 35 35 36 17 B/P (MAP) 107/57 (74) 105/58 (74) 108/58 (75) 109/57 (74) Pulse Ox 95 97 96 96 05/15/21 05/15/21 05/15/21 05/15/21 09:09 09:09 09:15 09:30 Temp 100.9 100.9 Pulse 69 69 73 94 Resp 36 36 17 16 B/P (MAP) 133/70 (91) 131/72 (91) Pulse Ox 97 97 97 94 O2 Delivery Mechanical Ventilator FiO2 100 100 05/15/21 05/15/21 05/15/21 05/15/21 09:45 10:00 10:15 10:30 Temp 100.9 100.9 100.9 100.9 Pulse 101 104 95 91 Resp 14 20 35 36 B/P (MAP) 127/72 (90) 127/79 (95) 129/71 (90) 131/71 (91) 111/65 (80) Pulse Ox 92 90 93 93 05/15/21 05/15/21 05/15/21 05/15/21 10:31 10:45 11:00 11:15 Temp 100.9 101.1 100.4 Pulse 90 91 103 88 Resp 35 35 33 25 B/P (MAP) 123/67 (85) 124/69 (87) 95/54 (68) Pulse Ox 93 93 94 95 FiO2 100 05/15/21 05/15/21 05/15/21 05/15/21 11:30 11:45 12:37 12:37 Temp 100.6 100.6 Pulse 90 87 Resp 17 18 B/P (MAP) 96/56 (69) 96/57 (70) Pulse Ox 95 95 O2 Delivery Mechanical Ventilator FiO2 100 Intake and Output 05/15/21 07:00 Intake Total 1705 ml Output Total 1300 ml Balance 405 ml Assessment/Plan Assessment/Plan Assessment/Plan This is a 35-year-old woman admitted with Covid/ARDS. She has been in the hospital since 04/28, and intubated since 05/06. She continued to be febrile overnight, treated with Tylenol suppositories and Toradol. She is receiving vecuronium every 2 hours, with tachycardia developing just before a dose. This morning she is intubated, sedated. She is tolerating the supine position for the first time in several days. Vent settings 35/320/100/16. She is sedated with Versed 10 mg/h, fentanyl 200 mcg/h and Precedex 1 mcg/kg/h. EMR data reviewed. Last ABG 7.32/65/59. BUN 31, creatinine 0.52. Last serum triglycerides 314 prior to discontinuation of propofol. Diagnosis: Covid pneumonia, refractory ARDS Plan: Refractory ARDS. Patient is still treated with IV steroids for Covid. Empiric vancomycin and cefepime were started because of persistent fever. Cultures are pending. She continues to be proned as tolerated, heavily sedated and paralyzed. With the patient becoming tachycardic and afebrile numerous, concern for inadequate sedation. Propofol was discontinued because of hypertriglyceridemia. I encouraged the team to increase fentanyl and Versed as needed. No changes were made to the ventilator today On treatment doses of enoxaparin Bedside team continues to update the family regularly. Family is aware of the patient's poor prognosis. Plan reviewed with Dr. Medina and the rest of the bedside team. Patient seen through remote audiovisual assessment through HIPAA COMPLIANT setup. All labs, flowsheets, and images reviewed Cumulative nonprocedural critical care time spent in directed patient care = 60min CARLOS GOODMAN MD May 15, 2021 15:47
[2021-05-15] MEDS: CLINIMIX IV SCH (15:50)
[2021-05-15] MEDS: INFUVITE ADULT IV SCH (15:50)
--- NOTE | 2021-05-15 16:14 | NUR ---
ASSISTED WITH PLACING PATIENT IN PRONE POSITION AT THIS TIME, TUBE REMAINED STABLE AND NO COMPLICATIONS NOTED AT THIS TIME. Addendum: 05/15/21 at 1615 by Altagracia Nolasco RRT RT Amended: Links added.
--- NOTE | 2021-05-15 17:11 | NUR ---
INFECTIOUS DISEASE CONSULT AT BEDSIDE VIA TEME MONITOR.
--- NOTE | 2021-05-15 17:45 | TELE.CONS ---
Consultation Reason for Consult: Reason for Consultation: fever in an ICU patient History of Present Illness History of Patient Comments 35 yo F was admitted with COVID , currently intubated and having fevers. patient was admitted on 04/29 due to COVID pneumonia. she competed the course of remdesevir and steroids. she was intubated on 05/06 and remains intubated since. now on maximum Vent support requiring FiO2 100%. she has scant ET secretions which is white. she has a vincent catheter , and a midline that was removed on 05/13, she is noted to have fevers since 05/10. she was on zosyn later changed to vancomycin and Cefepime but continues to be febrile. cxr with bilateral infiltrates unchanged as reported. Review of Systems Constitutional: No: Fever, Chills, Weakness Eyes: No: Pain, Vision change, Conjunctivae inflammation, Eyelid inflammation, Other, Redness ENT: No: Ear pain, Ear discharge, Nose pain, Nose discharge, Nose congestion, Mouth pain, Mouth swelling, Throat pain, Throat swelling, Other Respiratory: No: Cough, Dry, Shortness of breath, SOB with excertion Cardiovascular: No: Chest Pain, Orthopnea Gastrointestinal: No: Nausea, Vomiting, Abdominal Pain, Diarrhea, Constipation, Melena, Hematochezia, Other Genitourinary: No Dysuria, No Frequency Musculoskeletal: No: back pain, hand pain Skin: No: Jaundice Neurological: No: Weakness, Numbness, Incoordination Allergies: Coded Allergies: ibuprofen (Verified Allergy, Unknown, 04/29/21) naproxen (Verified Allergy, Unknown, 04/29/21) VITALS REVIEW VITALS Vital Sign - Last 24 Hours 05/11/21 05/11/21 05/11/21 05/11/21 07:00 07:15 07:30 07:45 Temp 99.3 99.3 99.3 99.3 Pulse 67 66 66 66 B/P (MAP) 109/60 (76) 100/53 (69) 100/52 (68) 104/53 (70) Pulse Ox 92 92 91 93 05/11/21 05/11/21 05/11/21 05/11/21 08:00 08:00 08:00 08:09 Temp 99.3 Pulse 68 62 74 Resp 27 31 B/P (MAP) 124/60 (81) Pulse Ox 93 90 92 O2 Delivery Mechanical Ventilator FiO2 100 100 05/11/21 05/11/21 05/11/21 05/11/21 08:09 08:15 08:30 08:45 Temp 99.5 99.3 99.3 Pulse 74 71 68 67 Resp 31 B/P (MAP) 118/53 (74) 109/49 (69) 111/62 (78) Pulse Ox 92 91 91 92 O2 Delivery Mechanical Ventilator FiO2 100 05/11/21 05/11/21 05/11/21 05/11/21 09:00 09:15 09:30 09:34 Temp 99.3 99.1 99.3 Pulse 67 66 67 67 Resp 28 B/P (MAP) 125/62 (83) 115/59 (77) 116/58 (77) Pulse Ox 92 91 90 91 FiO2 100 05/11/21 05/11/21 05/11/21 05/11/21 09:45 10:00 10:15 10:30 Temp 99.3 99.3 99.3 99.3 Pulse 67 68 69 68 B/P (MAP) 112/43 (66) 110/48 (68) 120/53 (75) 100/48 (65) Pulse Ox 88 88 87 88 05/11/21 05/11/21 05/11/21 05/11/21 10:45 11:00 11:15 11:30 Temp 99.3 99.3 99.3 99.3 Pulse 67 66 66 66 B/P (MAP) 105/47 (66) 110/50 (70) 110/50 (70) 106/56 (73) Pulse Ox 85 88 89 90 05/11/21 05/11/21 05/11/21 05/11/21 11:45 11:49 12:00 12:00 Temp 99.3 99.3 Pulse 66 65 58 Resp 27 B/P (MAP) 111/53 (72) 107/57 (74) Pulse Ox 90 90 91 O2 Delivery Mechanical Ventilator FiO2 100 05/11/21 05/11/21 05/11/21 05/11/21 12:12 12:15 12:30 12:45 Temp 99.3 99.5 99.7 Pulse 87 86 80 73 Resp 30 B/P (MAP) 128/78 (95) 123/63 (83) 123/62 (82) Pulse Ox 95 93 90 89 FiO2 100 05/11/21 05/11/21 05/11/21 05/11/21 13:00 13:15 13:30 13:30 Temp 99.9 99.7 99.7 Pulse 70 68 67 68 Resp 28 B/P (MAP) 113/53 (73) 112/55 (74) 111/56 (74) Pulse Ox 90 89 89 89 FiO2 100 05/11/21 05/11/21 05/11/21 05/11/21 13:45 14:00 14:15 14:26 Temp 99.7 99.5 99.5 Pulse 65 67 64 81 B/P (MAP) 110/57 (74) 114/61 (78) 109/52 (71) 125/66 (85) Pulse Ox 88 89 90 93 05/11/21 05/11/21 05/11/21 05/11/21 14:30 14:45 15:00 15:15 Temp 99.5 99.5 99.3 99.1 Pulse 77 68 64 61 B/P (MAP) 112/68 (83) 112/55 (74) 108/61 (77) 103/61 (75) Pulse Ox 90 91 91 91 05/11/21 05/11/21 05/11/21 05/11/21 15:30 15:45 16:00 16:00 Temp 99.0 99.0 99.0 Pulse 64 62 59 B/P (MAP) 113/62 (79) 107/55 (72) 98/54 (69) Pulse Ox 89 90 91 O2 Delivery Mechanical Ventilator 05/11/21 05/11/21 05/11/21 05/11/21 16:00 16:15 16:23 16:30 Temp 99.0 98.8 Pulse 55 59 58 59 Resp 27 31 B/P (MAP) 102/57 (72) 107/56 (73) Pulse Ox 91 92 92 92 FiO2 100 100 05/11/21 05/11/21 05/11/21 05/11/21 16:45 17:00 17:15 17:30 Temp 98.6 98.6 98.6 98.4 Pulse 59 74 63 58 B/P (MAP) 106/57 (73) 126/71 (89) 108/57 (74) 112/54 (73) Pulse Ox 90 94 91 91 8/15/21 8/15/21 8/15/21 8/15/21 17:45 18:00 18:05 18:05 Temp 98.4 98.2 Pulse 57 55 55 55 Resp 28 28 B/P (MAP) 106/54 (71) 105/59 (74) Pulse Ox 91 92 91 91 O2 Delivery Mechanical Ventilator FiO2 100 100 05/11/21 05/11/21 05/11/21 05/11/21 18:15 19:00 19:00 19:00 Temp 98.2 Pulse 55 59 55 Resp 27 B/P (MAP) 113/57 (75) 98/54 (69) Pulse Ox 91 91 91 O2 Delivery Mechanical Ventilator FiO2 100 05/11/21 05/11/21 05/11/21 05/11/21 20:05 22:27 23:37 23:41 Pulse 59 78 86 Resp 29 26 26 28 Pulse Ox 91 94 95 FiO2 100 100 100 05/11/21 05/11/21 05/12/21 05/12/21 23:41 23:41 00:23 02:02 Pulse 59 85 86 Resp 26 26 B/P (MAP) 98/54 (69) Pulse Ox 91 90 90 O2 Delivery Mechanical Ventilator FiO2 100 100 05/12/21 05/12/21 05/12/21 05/12/21 03:00 03:00 03:58 06:08 Pulse 86 77 69 Resp 28 34 35 Pulse Ox 95 89 92 O2 Delivery Mechanical Ventilator FiO2 100 100 100 05/12/21 05/12/21 05/12/21 05/12/21 06:30 06:45 07:00 07:15 Temp 98.2 98.2 98.2 98.2 Pulse 70 67 65 63 B/P (MAP) 95/54 (68) 127/76 (93) 116/66 (83) 113/63 (80) Pulse Ox 89 94 93 93 05/12/21 05/12/21 05/12/21 05/12/21 07:30 07:45 08:00 08:00 Temp 98.2 98.2 98.2 Pulse 65 64 65 B/P (MAP) 116/65 (82) 114/59 (77) 108/62 (77) Pulse Ox 93 93 92 O2 Delivery Mechanical Ventilator 05/12/21 05/12/21 05/12/2116/21 08:15 08:30 08:45 08:46 Temp 98.2 98.2 98.2 98.2 Pulse 63 62 39 45 B/P (MAP) 103/66 (78) 110/61 (77) 140/79 (99) Pulse Ox 91 91 92 91 05/12/21 05/12/21 05/12/21 05/12/21 08:57 08:57 09:00 09:15 Temp 98.4 98.4 Pulse 60 60 61 60 Resp 37 37 B/P (MAP) 116/68 (84) 108/64 (79) Pulse Ox 89 89 89 89 O2 Delivery C-Pap FiO2 100 100 05/12/21 05/12/21 05/12/21 05/12/21 09:16 09:30 09:45 10:00 Temp 98.4 98.4 98.4 Pulse 61 61 60 60 Resp 34 B/P (MAP) 102/57 (72) 102/58 (73) 99/55 (70) Pulse Ox 88 90 90 90 FiO2 100 05/12/21 05/12/21 05/12/21 05/12/21 10:15 10:30 10:45 11:00 Temp 98.4 98.4 98.6 98.6 Pulse 61 62 61 62 B/P (MAP) 101/59 (73) 110/62 (78) 114/58 (76) 101/65 (77) Pulse Ox 90 92 91 93 05/12/21 05/12/21 05/12/21 05/12/21 11:15 11:30 11:45 12:00 Temp 98.6 98.8 99.0 Pulse 63 64 63 B/P (MAP) 111/67 (82) 120/62 (81) 115/63 (80) Pulse Ox 92 91 91 O2 Delivery Mechanical Ventilator 05/12/21 05/12/21 05/12/21 05/12/21 12:00 12:15 12:30 12:32 Temp 99.0 99.0 99.0 Pulse 63 63 63 62 Resp 34 B/P (MAP) 125/68 (87) 120/66 (84) 113/69 (84) Pulse Ox 90 90 93 93 FiO2 100 05/12/21 05/12/21 05/12/21 05/12/21 12:45 13:00 13:15 13:30 Temp 99.1 99.1 99.3 99.3 Pulse 65 67 69 68 B/P (MAP) 118/71 (87) 111/65 (80) 112/62 (79) 114/63 (80) Pulse Ox 94 93 94 93 05/12/21 05/12/21 05/12/21 05/12/21 13:45 14:00 14:15 14:30 Temp 99.3 99.5 99.5 99.5 Pulse 68 68 66 66 B/P (MAP) 115/65 (82) 118/64 (82) 113/67 (82) 112/70 (84) Pulse Ox 91 89 88 90 05/12/21 05/12/21 05/12/21 05/12/21 14:33 14:45 15:00 15:15 Temp 99.7 99.9 99.9 Pulse 67 66 66 66 Resp 34 B/P (MAP) 107/68 (81) 109/67 (81) 114/66 (82) Pulse Ox 90 89 90 91 FiO2 100 05/12/21 05/12/21 05/12/21 05/12/21 15:30 15:45 16:00 16:13 Temp 99.9 100.0 100.2 Pulse 67 67 66 65 Resp 34 B/P (MAP) 113/66 (82) 113/62 (79) 105/63 (77) Pulse Ox 91 92 92 93 FiO2 100 05/12/21 05/12/21 05/12/21 05/12/21 16:15 16:30 16:38 16:45 Temp 99.7 99.9 99.9 Pulse 67 61 59 Resp 51 34 B/P (MAP) 128/50 (76) 109/56 (73) 112/62 (79) Pulse Ox 93 92 93 O2 Delivery Mechanical Ventilator 05/12/21 05/12/21 05/12/21 05/12/21 17:00 17:15 17:30 17:45 Temp 99.9 99.9 99.9 100.0 Pulse 62 63 64 64 B/P (MAP) 119/57 (77) 103/69 (80) 97/64 (75) 109/62 (78) Pulse Ox 91 89 87 87 05/12/21 05/12/21 05/12/2116/21 18:00 18:15 18:30 18:44 Temp 100.2 100.2 100.2 Pulse 65 66 61 65 Resp 34 B/P (MAP) 111/57 (75) 110/66 (81) 120/72 (88) Pulse Ox 87 87 88 93 FiO2 100 05/12/21 05/12/21 05/12/21 05/12/21 19:00 19:00 19:00 19:00 Temp 100.2 Pulse 61 58 Resp 22 24 B/P (MAP) 107/63 (78) Pulse Ox 89 88 O2 Delivery Mechanical Ventilator Mechanical Ventilator O2 Flow Rate 24.00 FiO2 100 100 05/12/21 05/12/21 05/12/21 05/12/21 19:15 19:30 19:31 19:45 Temp 100.4 100.4 100.4 100.2 Pulse 59 B/P (MAP) 112/67 (82) 123/69 (87) 100/56 (71) Pulse Ox 90 90 90 89 05/12/21 05/12/21 05/12/21 05/12/21 19:46 20:00 20:05 20:15 Temp 100.2 100.2 100.2 Pulse 62 62 60 Resp 34 B/P (MAP) 90/43 (59) 109/60 (76) 117/60 (79) 98/50 (66) 89/42 (58) Pulse Ox 89 86 89 88 FiO2 100 05/12/21 05/12/21 05/12/21 05/12/21 20:30 20:45 21:00 21:15 Temp 100.2 100.4 100.2 100.2 Pulse 61 60 60 61 B/P (MAP) 113/57 (75) 115/53 (73) 112/60 (77) 122/56 (78) 90/45 (60) 90/45 (60) 95/47 (63) 89/44 (59) Pulse Ox 84 85 88 89 05/12/21 05/12/21 05/12/21 05/12/21 21:30 21:34 21:45 22:00 Temp 100.2 100.2 100.2 100.2 Pulse 59 62 62 61 B/P (MAP) 144/69 (94) 124/53 (76) 126/57 (80) 134/76 (95) 116/51 (72) 90/41 (57) 96/48 (64) 123/59 (80) Pulse Ox 92 89 87 90 05/12/21 05/12/21 05/12/21 05/12/21 22:10 22:15 22:30 22:45 Temp 100.2 100.2 100.2 Pulse 64 56 62 62 Resp 35 B/P (MAP) 153/95 (114) 134/75 (94) 126/70 (88) 153/76 (101) 118/55 (76) 114/53 (73) Pulse Ox 88 90 89 87 FiO2 100 05/12/21 05/12/21 05/12/21 05/13/21 23:00 23:00 23:07 00:30 Pulse 112 64 72 Resp 24 35 34 Pulse Ox 94 88 90 O2 Delivery Mechanical Ventilator Mechanical Ventilator FiO2 100 100 05/13/21 05/13/21 05/13/21 05/13/21 02:16 03:00 03:00 04:00 Pulse 69 69 69 Resp 34 24 34 Pulse Ox 88 93 93 O2 Delivery Mechanical Ventilator FiO2 100 100 100 05/13/21 05/13/21 05/13/21 05/13/21 06:12 06:30 06:45 07:00 Temp 99.9 99.9 99.9 Pulse 58 55 55 55 Resp 36 B/P (MAP) 136/75 (95) 129/74 (92) 138/70 (92) 131/69 (89) 131/68 (89) 131/69 (89) Pulse Ox 93 92 92 92 FiO2 100 05/13/21 05/13/21 05/13/21 05/13/21 07:15 07:30 07:45 08:00 Temp 99.9 100.0 99.9 Pulse 56 56 56 B/P (MAP) 127/76 (93) 116/68 (84) 132/73 (92) 130/69 (89) 124/65 (84) 125/65 (85) Pulse Ox 94 92 92 O2 Delivery Mechanical Ventilator 05/13/21 05/13/21 05/13/21 05/13/21 08:00 08:00 08:15 08:17 Temp 99.9 99.9 Pulse 58 58 53 55 Resp 24 36 B/P (MAP) 122/55 (77) 140/70 (93) 114/59 (77) 135/71 (92) Pulse Ox 92 93 91 92 FiO2 100 100 05/13/21 05/13/21 05/13/21 05/13/21 08:19 08:30 08:45 09:00 Temp 100.0 99.9 99.9 Pulse 55 54 54 56 Resp 36 B/P (MAP) 137/71 (93) 139/72 (94) 123/72 (89) 130/68 (88) 131/70 (90) 123/67 (85) Pulse Ox 92 93 93 91 O2 Delivery Mechanical Ventilator FiO2 100 05/13/21 05/13/21 05/13/21 05/13/21 09:15 09:30 09:45 10:00 Temp 99.9 99.7 99.9 99.9 Pulse 58 58 58 59 B/P (MAP) 128/70 (89) 127/68 (87) 125/67 (86) 123/67 (85) 115/63 (80) 115/62 (79) 117/63 (81) 116/61 (79) Pulse Ox 89 88 89 90 05/13/21 05/13/21 05/13/21 05/13/21 10:01 10:15 10:30 10:45 Temp 99.9 99.9 99.9 Pulse 59 59 60 62 Resp 35 B/P (MAP) 129/66 (87) 133/68 (89) 133/64 (87) 120/64 (82) 124/65 (84) 123/64 (83) Pulse Ox 92 92 91 92 FiO2 100 05/13/21 05/13/21 05/13/21 05/13/21 11:00 11:15 11:30 11:45 Temp 100.0 100.2 100.2 100.2 Pulse 60 62 62 61 B/P (MAP) 137/69 (91) 130/70 (90) 132/72 (92) 124/72 (89) 123/65 (84) 125/66 (85) 125/66 (85) 127/67 (87) Pulse Ox 93 92 93 93 05/13/21 05/13/21 05/13/21 05/13/21 12:00 12:00 12:01 12:15 Temp 100.2 100.2 Pulse 62 62 61 Resp 35 B/P (MAP) 131/75 (93) 135/66 (89) 123/65 (84) 123/66 (85) Pulse Ox 94 93 93 O2 Delivery Mechanical Ventilator FiO2 100 05/13/21 05/13/21 05/13/21 05/13/21 12:30 12:45 13:00 13:15 Temp 100.2 100.2 100.4 100.2 Pulse 62 69 62 61 B/P (MAP) 129/70 (89) 128/71 (90) 128/66 (86) 129/69 (89) 123/66 (85) 124/67 (86) 123/66 (85) Pulse Ox 92 90 92 93 05/13/21 05/13/21 05/13/21 05/13/21 13:30 13:45 14:00 14:15 Temp 100.2 100.2 100.2 100.2 Pulse 61 60 61 62 B/P (MAP) 125/68 (87) 126/68 (87) 123/70 (87) 123/66 (85) 127/68 (87) Pulse Ox 93 93 93 92 05/13/21 05/13/21 05/13/21 05/13/21 14:30 14:30 14:45 15:00 Temp 100.2 100.2 100.0 Pulse 62 61 61 61 Resp 34 B/P (MAP) 122/66 (84) 122/65 (84) 123/62 (82) 120/65 (83) Pulse Ox 93 92 93 94 FiO2 100 05/13/21 05/13/21 05/13/21 05/13/21 15:15 15:30 15:45 16:00 Temp 100.0 99.9 99.9 100.0 Pulse 62 62 62 63 B/P (MAP) 119/64 (82) 124/66 (85) 129/68 (88) 130/70 (90) 122/66 (84) Pulse Ox 93 94 93 92 05/13/21 05/13/21 05/13/21 05/13/21 16:05 16:15 16:23 16:30 Temp 100.0 100.2 Pulse 62 60 61 Resp 35 B/P (MAP) 124/66 (85) 126/67 (86) Pulse Ox 92 92 93 O2 Delivery Mechanical Ventilator 805/13/21 05/13/21 05/13/21 16:45 17:00 17:15 17:27 Temp 100.2 100.2 100.2 Pulse 61 69 64 Resp 37 B/P (MAP) 121/66 (84) 99/57 (71) 105/60 (75) 122/55 (77) 84/45 (58) Pulse Ox 92 88 84 70 05/13/21 05/13/21 05/13/21 05/13/21 17:30 17:38 17:45 18:00 Temp 100.2 100.2 100.0 Pulse 61 58 51 Resp 44 B/P (MAP) 75/39 (51) 106/53 (70) 100/53 (69) 98/47 (64) 77/39 (52) Pulse Ox 65 76 76 93 05/13/21 05/13/21 05/13/21 05/13/21 18:15 19:00 19:15 19:17 Pulse 51 85 89 Resp 44 B/P (MAP) 138/64 (88) 118/54 (75) 99/50 (66) Pulse Ox 92 90 91 92 05/13/21 05/13/21 05/13/21 05/13/21 19:19 19:30 19:32 19:45 Temp 99.5 99.5 99.5 Pulse 64 70 72 63 Resp 35 B/P (MAP) 138/73 (94) 133/73 (93) 146/74 (98) 138/73 (94) Pulse Ox 94 88 87 88 05/13/21 05/13/21 05/13/21 05/13/21 20:00 20:15 20:30 20:45 Temp 99.5 99.7 99.9 100.2 Pulse 66 76 79 69 B/P (MAP) 141/81 (101) 140/77 (98) 145/79 (101) 116/64 (81) 154/81 (105) Pulse Ox 91 88 89 86 05/13/21 05/13/21 05/13/21 05/13/21 21:00 21:15 21:30 21:45 Temp 100.2 100.2 100.4 100.4 Pulse 67 71 66 68 B/P (MAP) 126/64 (84) 127/66 (86) 145/75 (98) 130/67 (88) 132/69 (90) Pulse Ox 90 87 92 94 05/13/21 05/13/21 05/13/21 05/13/21 21:51 21:51 22:00 22:00 Temp 100.4 Pulse 67 69 61 Resp 35 35 B/P (MAP) 122/64 (83) 133/68 (89) Pulse Ox 95 95 94 O2 Delivery Mechanical Ventilator FiO2 100 05/13/21 05/13/21 05/13/21 05/13/21 22:11 22:15 22:30 22:45 Temp 100.6 100.6 100.6 Pulse 70 66 65 67 Resp 35 B/P (MAP) 129/66 (87) 130/66 (87) 131/67 (88) Pulse Ox 94 96 95 95 O2 Delivery Mechanical Ventilator FiO2 100 05/13/21 05/13/21 05/13/21 05/13/21 23:00 23:00 23:00 23:15 Temp 100.6 100.6 Pulse 68 66 67 Resp 22 B/P (MAP) 117/62 (80) 133/68 (89) 127/65 (85) Pulse Ox 95 95 95 O2 Delivery Mechanical Ventilator FiO2 100 05/13/21 05/13/21 05/14/21 05/14/21 23:30 23:45 00:00 00:00 Temp 100.6 100.8 100.8 Pulse 64 66 63 65 Resp 35 B/P (MAP) 132/67 (88) 129/67 (87) 126/58 (80) 129/65 (86) Pulse Ox 95 96 96 95 05/14/21 05/14/21 05/14/21 05/14/21 00:15 00:30 00:45 01:00 Temp 100.9 100.8 100.8 100.8 Pulse 66 67 68 67 B/P (MAP) 125/64 (84) 123/62 (82) 125/63 (83) 116/61 (79) 126/64 (84) Pulse Ox 95 93 93 92 05/14/21 05/14/21 05/14/21 05/14/21 01:15 01:30 01:45 02:00 Temp 99.9 100.8 100.9 Pulse 63 64 61 63 Resp 35 B/P (MAP) 135/69 (91) 134/69 (90) 130/68 (88) Pulse Ox 96 96 96 97 05/14/21 05/14/21 05/14/21 05/14/21 02:00 02:15 02:30 02:45 Temp 101.1 101.1 101.1 101.1 Pulse 62 64 70 65 B/P (MAP) 114/65 (81) 129/65 (86) 139/70 (93) 121/60 (80) 131/66 (87) Pulse Ox 97 97 97 95 05/14/21 05/14/21 05/14/21 05/14/21 03:30 03:30 03:55 03:55 Pulse 76 76 76 Resp 22 22 Pulse Ox 96 96 99 O2 Delivery Mechanical Ventilator FiO2 100 05/14/21 05/14/21 05/14/21 05/14/21 04:00 05:58 06:00 06:30 Temp 100.6 Pulse 77 76 69 71 Resp 35 35 35 B/P (MAP) 116/60 (78) Pulse Ox 99 99 99 95 FiO2 100 05/14/21 05/14/21 05/14/21 05/14/21 06:45 07:00 07:15 07:30 Temp 100.6 100.6 100.6 100.8 Pulse 69 70 69 69 B/P (MAP) 118/62 (80) 115/57 (76) 120/63 (82) 123/64 (83) 121/63 (82) Pulse Ox 95 94 94 94 05/14/21 05/14/21 05/14/21 05/14/21 07:45 07:55 07:55 08:00 Temp 100.8 100.9 Pulse 69 64 64 Resp 35 B/P (MAP) 132/69 (90) 122/60 (80) 123/63 (83) Pulse Ox 94 97 96 O2 Delivery Mechanical Ventilator FiO2 100 05/14/21 05/14/21 05/14/21 05/14/21 08:45 08:45 10:22 12:42 Pulse 73 73 77 84 Resp 36 36 35 38 Pulse Ox 98 98 96 96 O2 Delivery Mechanical Ventilator FiO2 100 05/14/21 05/14/21 05/14/21 05/14/21 13:58 15:49 17:16 17:34 Pulse 76 76 116 91 Resp 36 36 35 35 Pulse Ox 94 94 91 90 FiO2 100 100 100 100 05/14/21 05/14/21 05/14/21 05/14/21 19:00 19:15 19:30 19:45 Temp 101.7 102.0 102.0 102.2 Pulse 86 86 88 89 B/P (MAP) 112/67 (82) 111/65 (80) 116/66 (83) 115/65 (82) Pulse Ox 99 99 99 97 05/14/21 05/14/21 05/14/21 05/14/21 20:00 20:15 20:30 20:45 Temp 102.2 102.4 102.4 Pulse 92 93 93 B/P (MAP) 104/70 (81) 112/66 (81) 109/63 (78) 103/67 (79) Pulse Ox 96 95 93 O2 Delivery Mechanical Ventilator 05/14/21 05/14/21 05/14/21 05/14/21 20:45 20:45 21:00 21:00 Temp 102.6 102.6 Pulse 93 98 99 106 Resp 35 24 B/P (MAP) 116/68 (84) 129/78 (95) Pulse Ox 95 92 95 97 O2 Delivery Mechanical Ventilator FiO2 100 100 05/14/21 05/14/21 05/14/21 05/14/21 21:00 21:15 21:30 21:45 Temp 102.7 102.7 102.7 Pulse 99 113 114 114 Resp 24 B/P (MAP) 133/85 (101) 143/87 (105) 135/82 (99) Pulse Ox 95 96 97 96 FiO2 100 05/14/21 05/14/21 05/14/21 05/14/21 22:00 22:15 22:30 22:45 Temp 102.7 102.6 102.4 102.2 Pulse 94 84 79 78 B/P (MAP) 123/78 (93) 101/62 (75) 89/54 (66) 86/53 (64) 120/78 (92) Pulse Ox 95 95 92 92 05/14/21 05/14/21 05/14/21 05/14/21 23:00 23:15 23:30 23:45 Temp 102.2 102.2 102.2 102.2 Pulse 77 77 76 75 B/P (MAP) 88/55 (66) 96/61 (73) 95/60 (72) 93/59 (70) Pulse Ox 92 97 97 98 05/14/21 05/14/21 05/15/21 05/15/21 23:45 23:45 00:00 00:15 Temp 102.2 102.0 Pulse 73 81 79 Resp 35 35 36 B/P (MAP) 99/53 (68) 94/58 (70) 93/60 (71) Pulse Ox 98 98 98 O2 Delivery Mechanical Ventilator FiO2 100 05/15/21 05/15/21 05/15/21 05/15/21 00:30 00:45 01:00 01:15 Temp 102.0 102.0 101.8 101.8 Pulse 77 76 75 73 Resp 24 21 23 36 B/P (MAP) 93/58 (70) 94/58 (70) 95/58 (70) 98/58 (71) Pulse Ox 98 98 98 98 05/15/21 05/15/21 05/15/21 05/15/21 01:30 01:45 01:48 02:00 Temp 101.8 101.8 101.8 Pulse 73 72 75 70 Resp 35 B/P (MAP) 96/59 (71) 96/58 (71) 96/54 (68) 95/59 (71) Pulse Ox 97 97 98 98 FiO2 100 05/15/21 05/15/21 05/15/21 05/15/21 02:15 02:30 02:45 03:15 Temp 101.7 101.7 101.7 101.5 Pulse 70 70 69 69 Resp 36 34 35 B/P (MAP) 98/59 (72) 99/60 (73) 98/59 (72) 100/61 (74) Pulse Ox 98 98 97 98 05/15/21 05/15/21 05/15/21 05/15/21 03:30 03:45 04:00 04:15 Temp 101.5 101.5 101.5 101.5 Pulse 69 69 68 68 Resp 35 36 35 35 B/P (MAP) 100/61 (74) 102/62 (75) 106/60 (75) 102/62 (75) 103/65 (78) Pulse Ox 97 96 97 97 05/15/21 05/15/21 05/15/21 05/15/21 04:30 04:32 04:32 04:45 Temp 101.5 101.5 Pulse 69 69 68 Resp 35 35 36 B/P (MAP) 104/63 (77) 105/64 (78) Pulse Ox 97 97 97 O2 Delivery Mechanical Ventilator FiO2 100 05/15/21 05/15/21 05/15/21 05/15/21 05:00 05:00 05:15 05:30 Temp 101.1 100.9 Pulse 68 72 68 Resp 35 35 35 B/P (MAP) 98/69 (79) 111/71 (84) 109/67 (81) Pulse Ox 96 93 95 96 FiO2 100 05/15/21 05/15/21 05/15/21 05/15/21 05:45 06:00 06:15 06:30 Temp 100.9 100.8 100.8 100.6 Pulse 66 65 66 66 Resp 36 35 36 36 B/P (MAP) 108/67 (81) 108/63 (78) 109/66 (80) 112/68 (83) 106/69 (81) Pulse Ox 96 96 95 96 05/15/21 05/15/21 05/15/21 05/15/21 06:45 07:00 07:15 07:30 Temp 100.6 100.6 100.6 100.6 Pulse 66 67 68 72 Resp 17 18 17 16 B/P (MAP) 105/63 (77) 119/70 (86) 116/68 (84) 123/70 (87) Pulse Ox 94 95 93 96 05/15/21 05/15/21 05/15/21 05/15/21 07:40 07:40 07:45 07:56 Temp 100.6 100.6 Pulse 79 82 Resp 14 35 B/P (MAP) 127/72 (90) 128/77 (94) 115/65 (82) Pulse Ox 95 95 O2 Delivery Mechanical Ventilator FiO2 100 05/15/21 05/15/21 05/15/21 05/15/21 08:00 08:15 08:30 08:45 Temp 100.6 100.6 100.6 100.8 Pulse 80 72 70 71 Resp 35 35 35 36 B/P (MAP) 126/79 (95) 107/57 (74) 105/58 (74) 108/58 (75) 119/66 (83) Pulse Ox 95 95 97 96 05/15/21 05/15/21 05/15/21 05/15/21 09:00 09:09 09:09 09:15 Temp 100.8 100.9 Pulse 66 69 69 73 Resp 17 36 36 17 B/P (MAP) 109/57 (74) 133/70 (91) Pulse Ox 96 97 97 97 O2 Delivery Mechanical Ventilator FiO2 100 100 05/15/21 05/15/21 05/15/21 05/15/21 09:30 09:45 10:00 10:15 Temp 100.9 100.9 100.9 100.9 Pulse 94 101 104 95 Resp 16 14 20 35 B/P (MAP) 131/72 (91) 127/72 (90) 127/79 (95) 129/71 (90) 111/65 (80) Pulse Ox 94 92 90 93 05/15/21 05/15/21 05/15/21 05/15/21 10:30 10:31 10:45 11:00 Temp 100.9 100.9 101.1 Pulse 91 90 91 103 Resp 36 35 35 33 B/P (MAP) 131/71 (91) 123/67 (85) 124/69 (87) Pulse Ox 93 93 93 94 FiO2 100 05/15/21 05/15/21 05/15/21 05/15/21 11:15 11:30 11:45 12:27 Temp 100.4 100.6 100.6 Pulse 88 90 87 80 Resp 25 17 18 35 B/P (MAP) 95/54 (68) 96/56 (69) 96/57 (70) Pulse Ox 95 95 95 96 FiO2 100 05/15/21 05/15/21 05/15/21 05/15/21 12:37 12:37 13:35 14:48 Pulse 82 69 Resp 35 35 Pulse Ox 100 98 O2 Delivery Mechanical Ventilator FiO2 100 100 100 Intake and Output 05/15/21 07:00 Intake Total 1705 ml Output Total 1300 ml Balance 405 ml VTE VTE Risk Total Score: 5 VTE Risk Score VTE Risk: Score 0-1 = Low Risk (Aggressive mobilization; early ambulation; no VTE prophylaxis required) Score 2: Moderate Risk (Intermittent/Pneumatic Compression Device OR Lovenox/Heparin/Coumadin) Score 3-4: High Risk (Intermittent/Pneumatic Compression Device AND Lovenox/Heparin/Coumadin) Score > or =5: Highest Risk (Intermittent/Pneumatic Compression Device AND Lovenox/Heparin/Coumadin) Antico:Hep/LMWH/Coum/Xarelto: Yes Mechanical device ordered: Yes VTE VTE Present on Admission: No Currently receiving anticoagul: Yes VTE Risk Total Score: 5 Antico:Hep/LMWH/Coum/Xarelto: Yes Mechanical device ordered: Yes Assessment/Plan Assessment/Plan Plan 35 yo F was admitted with COVID , currently intubated and having fevers. IMPRESSION: -acute hypoxemic resp failure. intubated on 05/06. -Fevers in a ICU patient since 05/10, despite broad spectrum abx -increased ventilatory requirement noted. -midline was removed on 05/14 -COVID diagnosed on 04/29 s/p Remdesevir. RECOMMENDATIONS: -follow Bcx and midline tip cultures -check D dimer and if very high then look for any thromboembolic events -check HIV status -if LDH is very high then consider evaluation for PCP Pneumonia. -if remains febrile then Add Micafungin 100 mg q24 -cont Vanc and Cefepime for now. duration typically 7-10 days thanks for the consult we will follow Fanta Williamson Md Infectious Diseases cell: [phone] FANTA WILLIAMSON MD May 15, 2021 17:45
[2021-05-15] MEDS: VERSED IV SCH (18:00)
[2021-05-15] MEDS: NS IV SCH (18:00)
--- NOTE | 2021-05-15 18:50 | NUR ---
REPORT RECEIVED FROM KULDIP ROUSSEAU. ASSUMED PT CARE.
[2021-05-16] VITALS (97 sets, daily range): BP systolic 90–295; BP diastolic 42–288
[2021-05-16] MEDS: NORCURON IV PRN ×8 (02:40→23:30)
[2021-05-16 04:38] LABS: ABG PCO2 82.9 mmHg (35.0-45.0); ABG PH 7.325 (7.350-7.450); HCO3act 42.2 mmol/L (22.0-26.0); pO2 60.7 mmHg (80.0-100.0)
[2021-05-16 05:36] LABS: BASOPHIL % 0.1 % (0.0-0.2); EOSINOPHIL # 0.5 10^3/uL (0.0-0.2); EOSINOPHIL % 4.1 % (0.0-5.0); LYMPHOCYTES # 1.44 10^3/uL1 (1.0-4.8); LYMPHOCYTES % 13.2 % (24.0-44.0); MEAN CORP HGB 29.6 pg (26-34); MONOCYTES # 0.4 10^3/uL (0.3-0.8); MONOCYTES % 3.9 % (5.0-12.0); NEUTROPHIL # 8.6 10^3/uL (1.8-7.7); NEUTROPHILS % 78.7 % (41.0-85.0); PLATELET COUNT 173 10^3/uL (150-400); RED CELL DISTRIBUTION WIDTH 12.2 % (11.5-14.5)
[2021-05-16 06:00] LABS: CALCIUM 8.1 mg/dL (8.4-10.5); CARBON DIOXIDE 38.9 mmol/L (20.0-32)
--- NOTE | 2021-05-16 06:45 | NUR ---
REPORT TO KULDIP ROUSSEAU RN. PT CARE RELINQUISHED.
[2021-05-16] MEDS: CLINIMIX IV SCH (07:25)
[2021-05-16] MEDS: INFUVITE ADULT IV SCH (07:25)
[2021-05-16] MEDS: LOVENOX SQ SCH ×2 (08:30→19:31)
[2021-05-16] MEDS: DEXAMETHASONE 10 MG/ML VIAL IV SCH (08:57)
[2021-05-16] MEDS: PEPCID IV SCH ×2 (08:57→19:32)
[2021-05-16] MEDS: MAXIPIME 2 GM in NS 100ML 100 ML IV SCH ×2 (08:57→21:00)
[2021-05-16] MEDS: LASIX IV SCH ×2 (08:57→19:31)
[2021-05-16] MEDS ORDERED: NS IV SCH (09:30)
[2021-05-16] MEDS ORDERED: VANCOMYCIN HCL IV SCH (09:30)
--- NOTE | 2021-05-16 10:00 | NUR ---
PLACED IN SUPINE POSITION FROM PRONE POSITION WITH 5 PERSON ASSIST. PATIENT TOLERATED WELL.
[2021-05-16] MEDS: PRECEDEX 400 MCG/100 ML INJECT 100 ML IV SCH (10:12)
--- NOTE | 2021-05-16 10:15 | NUR ---
PATIENT OPENING EYES. HR INCREASING TO 120. INCREASED SEDATION FENTANYL TO 300 MCG/HR RASS SCALE -4 PRECEDEX INCREASED TO 1.1MCG/KG/HR
[2021-05-16] MEDS: COLACE NG SCH ×2 (10:24→20:38)
--- NOTE | 2021-05-16 12:15 | NUR ---
LEVOPHED INCREASED TO 2MCG/MIN
[2021-05-16] MEDS: NS IV SCH ×2 (12:21→14:16)
[2021-05-16] MEDS: VERSED IV SCH (12:21)
[2021-05-16] MEDS: SUBLIMAZE IV SCH (14:16)
--- NOTE | 2021-05-16 14:45 | TELE.CONS ---
Consultation Reason for Consult: Reason for Consultation: ARDS VITALS REVIEW VITALS Vital Sign - Last 24 Hours 05/16/21 05/16/21 05/16/21 05/16/21 07:00 07:15 07:20 07:20 Temp 99.7 99.5 Pulse 66 65 B/P (MAP) 107/50 (69) 105/50 (68) Pulse Ox 97 97 O2 Delivery Mechanical Ventilator FiO2 100 05/16/21 05/16/21 05/16/21 05/16/21 07:30 07:45 07:47 07:48 Temp 99.5 99.5 Pulse 64 64 63 63 Resp 35 35 35 B/P (MAP) 103/50 (67) 103/51 (68) Pulse Ox 97 99 98 98 O2 Delivery Mechanical Ventilator FiO2 100 100 05/16/21 05/16/21 05/16/21 05/16/21 08:00 08:15 08:30 08:45 Temp 99.5 99.7 99.7 99.7 Pulse 63 63 63 64 Resp 35 B/P (MAP) 105/56 (72) 106/50 (68) 105/49 (67) 107/49 (68) 103/49 (67) Pulse Ox 99 99 100 100 05/16/21 05/16/21 05/16/21 05/16/21 09:00 09:15 09:30 09:45 Temp 99.7 99.7 99.7 Pulse 64 63 68 89 Resp 35 B/P (MAP) 104/47 (66) 112/55 (74) 139/70 (93) 295/288 (290) Pulse Ox 99 100 100 95 05/16/21 05/16/21 05/16/21 05/16/21 09:51 10:00 10:15 10:30 Temp 99.5 99.3 99.3 Pulse 118 129 92 89 Resp 37 35 B/P (MAP) 141/86 (104) 124/60 (81) 128/60 (82) 140/73 (95) Pulse Ox 89 92 91 93 FiO2 100 05/16/21 05/16/21 05/16/21 05/16/21 10:45 11:00 11:15 11:30 Temp 99.5 99.5 99.3 99.1 Pulse 80 99 84 91 Resp 35 B/P (MAP) 114/50 (71) 124/56 (78) 107/45 (65) 102/45 (64) Pulse Ox 92 95 93 94 05/16/21 05/16/21 05/16/21 05/16/21 11:45 11:47 12:00 12:15 Temp 99.1 99.0 99.0 Pulse 86 86 93 76 Resp 37 B/P (MAP) 96/43 (60) 98/58 (71) 91/45 (60) 101/47 (65) Pulse Ox 93 94 94 93 FiO2 100 05/16/21 05/16/21 05/16/21 05/16/21 12:30 12:45 12:45 12:45 Temp 99.0 99.1 Pulse 69 68 Resp 35 B/P (MAP) 98/48 (65) 99/50 (66) Pulse Ox 95 96 O2 Delivery Mechanical Ventilator FiO2 100 05/16/21 13:00 Temp 99.1 Pulse 66 B/P (MAP) 100/50 (67) Pulse Ox 97 VTE VTE Risk Total Score: 5 VTE Risk Score VTE Risk: Score 0-1 = Low Risk (Aggressive mobilization; early ambulation; no VTE prophylaxis required) Score 2: Moderate Risk (Intermittent/Pneumatic Compression Device OR Lovenox/Heparin/Coumadin) Score 3-4: High Risk (Intermittent/Pneumatic Compression Device AND Lovenox/Heparin/Coumadin) Score > or =5: Highest Risk (Intermittent/Pneumatic Compression Device AND Lovenox/Heparin/Coumadin) Antico:Hep/LMWH/Coum/Xarelto: Yes Mechanical device ordered: Yes VTE VTE Present on Admission: No Currently receiving anticoagul: Yes VTE Risk Total Score: 5 Antico:Hep/LMWH/Coum/Xarelto: Yes Mechanical device ordered: Yes Assessment/Plan Assessment/Plan Assessment/Plan Patient is a 35 yo with COVID and hypoxic respiratory failure/ARDS. Ventilated 10 days. Now with fever on broad spectrum antibiotics. Vent settings VC 35/320/1.0/+16 1. COVID pneumonia with hypoxic and hypercarbic respiratory failure, severe persistent ARDS - s/p course of remdesivir; completing course of steroids - periodic proning for persistent severe ARDS and hypoxia, some response in saturation with this - sedated with midazolam, dexmetatomidine and fentanyl; off propofol due to elevated triglycerides - paralyzed with intermittent vecuronium - on several wait lists for ECMO - full dose anticoagulation 2. Fever- persistent despite antibiotics, unclear source. PCT 0.17 - f/u cultures - empiric cefepime and vanc - seen by ID with recommendations for further w/u and Rx if persists 3. Hyperglycemia- continue management Patient seen through remote audiovisual assessment through HIPAA compliant setup. All relevant labs, flowsheets, and images reviewed. Plan of care discussed with ICU bedside team. Cumulative nonprocedural critical care time spent in directed patient care = 60 min Plan This is a 35 year old woman with COVID pneumonia/ARDS. ASSESSMENT / PLAN: 1) Acute Hypoxemic Respiratory Failure / Severe ARDS: Pt remains intubated (since 05/06/21) and sedated at this time. Will continue VENT management as per Tele-ICU Lead Software Engineer. 2) COVID-19 +: Pt has completed Tx with Remdesivir, and remains on Dexamethasone for now. She would benefit from ECMO and/or lung transplant evaluation. However, due to the Pandemic and COVID surge, no beds are available for transfer to a Higher Level of Care in [place], [place], or [place] at this time. She still remains on the "wait list" for several facilities 3) BL Pneumonia: Due to #2 above. Zosyn has been DC'd. Continue supportive care. Febrile overnight: urine and blood culture obtained. Midline removed and tip cultured. Vancomycin and Cefepime started ID consult. Repeat procalcitonin 0.17 4) Hyperglycemia: Exacerbated by Steroids and TF. HgbA1c is 6.5. 5) GI and DVT prophylaxis: Will continue Pepcid and Lovenox (T-dose). Critical Care Recommendations: Refractory ARDS. Patient is still treated with IV steroids for Covid. Empiric vancomycin and cefepime were started because of persistent fever. Cultures are pending. She continues to be proned as tolerated, heavily sedated and paralyzed. With the patient becoming tachycardic and afebrile numerous, concern for inadequate sedation. Propofol was discontinued because of hypertriglyceridemia. I encouraged the team to increase fentanyl and Versed as needed. No changes were made to the ventilator today On treatment doses of enoxaparin Bedside team continues to update the family regularly. Family is aware of the patient's poor prognosis. ID Recommendations: -follow Bcx and midline tip cultures -check D dimer and if very high then look for any thromboembolic events -check HIV status -if LDH is very high then consider evaluation for PCP Pneumonia. -if remains febrile then Add Micafungin 100 mg q24 -cont Vanc and Cefepime for now. duration typically 7-10 days GARDENIA BANKS MD May 16, 2021 14:45
--- NOTE | 2021-05-16 15:22 | DIET.OP ---
Nutrition Asmt/Malnutrit 2-17 Actual Date of Review: May 16, 2021 Nutritional Screening: Other (LOS) Diagnosis: covid pneumonia Pertinent Medical Hx/Surgical: none Subjective Information: pt remains intubated. TPN almost up to goal rate. Lipids being given q48h and clinimix running at 75 ml/hr. Pt continues to be proned. Current Diet Order/Nutrition S: NPO Pertinent Meds Current Medications Medications (Trade) Dose Ordered Sig/Davon Route PRN Reason Start Time Stop Time Status Last Admin Dose Admin Remdesivir 200 mg/ Sodium Chloride 140 ml @ 120.69 mls/ hr OT STAT IV 04/28/21 19:53 04/29/21 08:10 DC 04/28/21 19:53 Remdesivir 100 mg/ Sodium Chloride 120 ml @ 111.111 mls/hr Q24HRS IV 04/29/21 20:00 05/02/21 21:05 DC 05/02/21 20:45 Famotidine (Pepcid) 20 mg BID PO 04/28/21 21:00 05/07/21 09:31 DC 05/06/21 08:14 Sucralfate (Carafate) 1 gm ACHS PO 04/28/21 21:00 05/15/21 07:29 DC 05/12/21 21:00 Enoxaparin Sodium (Lovenox) 40 mg Q24HRS SQ 04/28/21 20:00 05/06/21 08:06 DC 05/05/21 21:00 Sucralfate (Carafate) 1 gm STK-MED ONCE PO 04/28/21 20:56 04/28/21 20:56 DC Lorazepam (Ativan) 1 mg Q4HR PRN IV ANXIETY 04/29/21 00:00 05/12/21 09:13 DC 05/06/21 18:45 Lorazepam (Ativan) 0.5 mg Q4HR PRN IV ANXIETY 04/29/21 00:00 05/06/21 09:00 DC Fentanyl Citrate (Sublimaze) 50 mcg STK-MED ONCE .ROUTE 04/29/21 11:37 04/29/21 11:38 DC Fentanyl Citrate (Sublimaze) 12.5 mcg OT ONCE IV 04/29/21 15:00 04/29/21 15:06 DC 04/29/21 13:35 Acetaminophen (Tylenol) 650 mg Q6HR PRN PO PAIN 1 - 3 04/30/21 18:00 05/02/21 18:00 DC 05/01/21 06:28 Dexmedetomidine HCl 200 mcg/ Sodium Chloride 50 ml @ 0 mls/hr IV 05/01/21 10:30 05/01/21 11:28 DC Sodium Chloride 250 ml @ ud STK-MED ONCE .ROUTE 05/01/21 20:40 05/01/21 20:40 DC Acetaminophen (Tylenol) 650 mg Q6HR PRN PO PAIN 1 - 3 05/02/21 20:30 05/08/21 18:01 DC 05/04/21 21:15 Bisacodyl (Dulcolax Ec Tablet) 5 mg STAT STAT PO 05/03/21 13:45 05/03/21 19:05 DC 05/03/21 14:36 Docusate Sodium (Colace) 100 mg BID PO 05/05/21 09:00 05/07/21 09:30 DC 05/06/21 08:14 Lorazepam (Ativan) 2 mg STK-MED ONCE .ROUTE 05/05/21 02:31 05/05/21 02:31 DC Lorazepam (Ativan) 2 mg STK-MED ONCE .ROUTE 05/05/21 03:46 05/05/21 03:47 DC Furosemide (Lasix) 20 mg OT ONCE IV 05/05/21 11:00 05/05/21 11:01 DC 05/05/21 11:20 Lorazepam (Ativan) 2 mg STK-MED ONCE .ROUTE 05/05/21 20:56 05/05/21 20:56 DC Enoxaparin Sodium (Lovenox) 100 mg Q12H SQ 05/06/21 08:30 06/05/21 08:29 05/16/21 08:30 Furosemide (Lasix) 20 mg STAT STAT IV 05/06/21 08:48 05/06/21 09:00 DC 05/06/21 08:48 Insulin Human Regular (Humulin R) 1 unit STK-MED ONCE .ROUTE 05/06/21 19:13 05/06/21 19:14 DC Propofol (Diprivan) 1,000 mg PRN PRN IV SEDATION 05/06/21 20:30 05/08/21 11:39 DC 05/08/21 04:00 Propofol 100 ml @ ud STK-MED ONCE IV 05/06/21 20:19 05/06/21 20:19 DC Vecuronium [place] (Norcuron) 10 mg STK-MED ONCE .ROUTE 05/06/21 22:24 05/06/21 22:24 DC Vecuronium [place] (Norcuron) 10 mg Q6HR PRN IV SHORTNESS OF BREATH 05/06/21 23:00 05/07/21 00:34 DC Vecuronium [place] (Norcuron) 10 mg Q4 PRN IV SHORTNESS OF BREATH 05/07/21 00:30 05/12/21 00:00 DC 05/11/21 20:00 Vecuronium [place] (Norcuron) 10 mg STK-MED ONCE .ROUTE 05/07/21 00:20 05/07/21 00:34 DC Propofol 100 ml @ ud STK-MED ONCE IV 05/07/21 01:53 05/07/21 01:53 DC Norepinephrine Bitartrate 8 mg/ Sodium Chloride 250 ml @ 0 mls/hr DAILY IV 05/07/21 09:00 05/10/21 16:46 DC 05/09/21 09:00 Fentanyl Citrate (Sublimaze) 100 mcg Q1HR IV 05/07/21 04:00 05/07/21 09:58 DC Piperacillin Sod/ Tazobactam Sod 4.5 gm/Sodium Chloride 100 ml @ 100 mls/hr Q6H IV 05/07/21 04:00 05/12/21 09:15 DC 05/11/21 22:00 Norepinephrine Bitartrate (Levophed) 4 mg STK-MED ONCE .ROUTE 05/07/21 04:38 05/07/21 04:38 DC Sodium Chloride 250 ml @ ud STK-MED ONCE .ROUTE 05/07/21 04:38 05/07/21 04:38 DC Fentanyl Citrate (Sublimaze) 100 mcg Q1HR PRN IV PAIN 7 - 10 05/07/21 06:30 05/12/21 09:13 DC 05/07/21 06:41 Fentanyl Citrate 2000 mcg/Sodium Chloride 200 ml @ 0 mls/hr IV 05/07/21 10:00 05/07/21 17:01 DC 05/07/21 10:30 Famotidine (Pepcid) 20 mg BID IV 05/07/21 09:30 06/06/21 09:29 05/16/21 08:57 Docusate Sodium (Colace) 100 mg BID NG 05/07/21 09:30 06/06/21 09:29 05/16/21 10:24 Propofol (Diprivan) 200 mg STK-MED ONCE IV 05/07/21 08:00 05/07/21 11:57 DC Succinylcholine Chloride (Quelicin) 8 mg STK-MED ONCE IV 05/07/21 08:00 05/07/21 11:57 DC Vecuronium [place] (Norcuron) 10 mg STK-MED ONCE IV 05/07/21 08:00 05/07/21 11:57 DC Propofol 100 ml @ ud STK-MED ONCE IV 05/07/21 14:49 05/07/21 14:50 DC Fentanyl Citrate 5000 mcg/Sodium Chloride 500 ml @ 0 mls/hr IV 05/07/21 18:00 06/06/21 17:59 05/16/21 14:16 Propofol 100 ml @ ud STK-MED ONCE IV 05/07/21 19:08 05/07/21 19:08 DC Propofol 100 ml @ ud STK-MED ONCE IV 05/07/21 23:47 05/07/21 23:47 DC Propofol 100 ml @ ud STK-MED ONCE IV 05/08/21 03:45 05/08/21 03:46 DC Propofol 100 ml @ ud STK-MED ONCE IV 05/08/21 07:33 05/08/21 07:34 DC Propofol 100 ml @ ud STK-MED ONCE IV 05/08/21 11:27 05/08/21 11:27 DC Propofol 100 ml @ 27.6 mls/hr PRN PRN IV SEDATION 05/08/21 12:00 06/07/21 11:59 05/14/21 03:30 Acetaminophen (Tylenol) 650 mg Q6HR PRN RC FEVER 05/08/21 22:00 06/07/21 21:59 05/15/21 23:52 Midazolam HCl 50 mg/Sodium Chloride 50 ml @ 2 mls/hr ONCE IV 05/09/21 14:30 05/10/21 09:50 DC 05/09/21 14:30 Hydromorphone HCl (Dilaudid) 2 mg STK-MED ONCE .ROUTE 05/09/21 20:10 05/09/21 20:10 DC Hydromorphone HCl (Dilaudid) 0.5 mg Q4H PRN IV PAIN 7 - 10 05/09/21 20:00 06/08/21 19:59 05/11/21 21:00 Sodium Chloride 100 ml @ ud STK-MED ONCE IV 05/09/21 21:13 05/09/21 21:13 DC Midazolam HCl 100 mg/Sodium Chloride 100 ml @ 0 mls/hr ONCE IV 05/10/21 10:00 05/10/21 10:01 DC 05/10/21 10:55 Furosemide (Lasix) 20 mg BID IV 05/10/21 10:30 05/10/21 12:38 DC 05/10/21 10:55 Furosemide (Lasix) 20 mg STK-MED ONCE .ROUTE 05/10/21 10:48 05/10/21 10:49 DC Vecuronium [place] (Norcuron) 10 mg Q2H PRN IV ventilator dyssynchrony 05/10/21 11:30 06/09/21 11:29 05/16/21 13:16 Furosemide (Lasix) 20 mg BID IV 05/10/21 12:38 06/09/21 10:29 05/16/21 08:57 Norepinephrine Bitartrate 8 mg/ Sodium Chloride 250 ml @ 0 mls/hr DAILY IV 05/11/21 09:00 05/11/21 08:54 DC Midazolam HCl 100 mg/Sodium Chloride 100 ml @ 0 mls/hr IV 05/10/21 17:00 05/11/21 08:57 DC 05/11/21 01:39 Albuterol Sulfate (Ventolin Hfa) 200 inh STK-MED ONCE IH 05/10/21 22:44 05/10/21 22:45 DC Albuterol Sulfate (Ventolin Hfa) 2 inh OT ONCE IH 05/10/21 23:00 05/10/21 23:01 DC 05/10/21 23:15 Norepinephrine Bitartrate 8 mg/ Sodium Chloride 258 ml @ 0 mls/hr IV 05/11/21 08:00 06/10/21 07:59 05/15/21 10:17 Midazolam HCl 100 mg/Sodium Chloride 100 ml @ 0 mls/hr TITRATE IV 05/11/21 09:00 06/10/21 08:59 05/16/21 12:21 Sodium Chloride 1,000 ml @ ud STK-MED ONCE .ROUTE 05/12/21 19:14 05/12/21 19:14 DC Albuterol Sulfate (Ventolin) 1.25 mg RTQ6 IH 05/14/21 03:00 05/14/21 00:49 DC Albuterol Sulfate (Ventolin) 1.25 mg RTQ6 PRN IH WHEEZING 05/14/21 03:00 06/13/21 02:59 Vancomycin HCl 1.5 gm/Sodium Chloride 300 ml @ 175 mls/hr Q12H IV 05/14/21 12:00 05/16/21 09:01 DC 05/16/21 00:00 Cefepime HCl 2 gm/ Sodium Chloride 100 ml @ 100 mls/hr BID IV 05/14/21 10:30 05/24/21 10:29 05/16/21 08:57 Acetaminophen (Ofirmev) 1,000 mg Q8H IV 05/14/21 14:30 05/14/21 16:57 DC Acetaminophen (Ofirmev) 1,000 mg Q8H PRN IV FEVER 05/14/21 17:00 06/13/21 14:29 05/15/21 15:50 Fat Emulsion Intravenous 250 ml @ 15 mls/hr Q2D IV 05/14/21 17:30 06/13/21 17:29 05/14/21 18:30 Ketorolac Tromethamine (Toradol) 30 mg OT PRN IV PAIN 4 - 6 05/14/21 21:30 05/19/21 21:29 05/14/21 21:41 Sterile Water (Water) 1,000 ml STK-MED ONCE .ROUTE 05/14/21 22:50 05/14/21 22:50 DC Sodium Chloride 100 ml @ ud STK-MED ONCE IV 05/15/21 04:22 05/15/21 04:22 DC Vancomycin HCl 1.5 gm/Sodium Chloride 300 ml @ 175 mls/hr Q8H IV 05/16/21 17:00 06/15/21 16:59 Vancomycin HCl 2 gm/Sodium Chloride 400 ml @ 160 mls/hr OT IV 05/16/21 09:30 06/15/21 09:29 05/16/21 10:24 Potassium Chloride 50 ml @ 50 mls/hr Q2 IV 05/16/21 16:00 05/16/21 20:59 Pertinent Labs Laboratory Tests Test 05/14/21 18:09 05/15/21 00:00 05/15/21 05:25 05/15/21 05:42 Bedside Glucose 134 194 White Blood Count 12.1 10^3/uL Red Blood Count 4.22 10^6/uL Hemoglobin 12.3 g/dL Hematocrit 40.1 % Mean Corpuscular Volume 95.0 fL Mean Corpuscular Hemoglobin 29.1 pg Mean Corpuscular Hemoglobin Concent 30.7 g/dL Red Cell Distribution Width 12.8 % Platelet Count 219 10^3/uL Mean Platelet Volume 10.5 fL Neutrophils (%) (Auto) 79.6 % Lymphocytes (%) (Auto) 13.3 % Monocytes (%) (Auto) 4.4 % Neutrophils # (Auto) 9.6 10^3/uL Lymphocytes # (Auto) 1.61 10^3/uL1 Monocytes # (Auto) 0.5 10^3/uL Absolute Immature Granulocyte (auto 0.09 10^3 u/L Absolute Eosinophils (auto) 0.3 10^3/uL Immature Granulocytes % 0.70 % Eosinophils % 2.6 % Basophils % 0.1 % Basophils # 0.0 10^3/uL Sodium Level 144 mmol/L Potassium Level 3.7 mmol/L Chloride Level 105.0 mmol/L Carbon Dioxide Level 37.2 mmol/L Anion Gap 5.5 Blood Urea Nitrogen 31 mg/dL Creatinine 0.52 mg/dL Estimated GFR () 161.4 Est GFR (CKD-EPI)(Non-Afr Malaysian) 133.4 BUN/Creatinine Ratio 59.0 Glucose Level 165 mg/dL Calcium Level 8.4 mg/dL Total Bilirubin 0.5 mg/dL Aspartate Amino Transf (AST/SGOT) 28 U/L Alanine Aminotransferase (ALT/SGPT) 39 U/L Alkaline Phosphatase 53 U/L Total Protein 6.5 g/dL Albumin 2.2 g/dL Globulin 4.3 Albumin/Globulin Ratio 0.511 Procalcitonin 0.17 ng/mL Blood Gas Sample Site ART LINE Blood Gas pH 7.360 Blood Gas PCO2 73.1 mmHg Blood Gas PO2 mmHg Blood Gas HCO3 40.4 mmol/L Blood Gas Base Excess 11.9 mmol/L Lucas Test N/A Arterial Blood Oxygen Saturation 89.6 % Deoxyhemoglobin 10.3 % Carboxyhemoglobin 1.0 % Methemoglobin 0.3 % Total Hemoglobin 13.1 % Total Oxygen Concentration 16.1 % Oxygen Delivery Method (LAB) FiO2 100 % Blood Gas PEEP 16.0 CMH2O Total Carbon Dioxide 42.6 mmol/L Test 05/15/21 08:18 05/15/21 12:10 05/15/21 17:48 05/15/21 23:51 Blood Gas Sample Site JUAN Blood Gas pH 7.320 Blood Gas PCO2 65.0 mmHg Blood Gas PO2 59.7 mmHg Blood Gas HCO3 32.7 mmol/L Blood Gas Base Excess 4.8 mmol/L Lucas Test POSITIVE Arterial Blood Oxygen Saturation 88.4 % Deoxyhemoglobin 11.5 % Carboxyhemoglobin 0.4 % Methemoglobin 0.2 % Total Hemoglobin 13.1 % Total Oxygen Concentration 16.2 % Oxygen Delivery Method (LAB) VENT Blood Gas Vent Mode A/C Blood Gas Vent Rate 35 FiO2 100 % Blood Gas Tidal Volume 320 ML Blood Gas PEEP 16 CMH2O Total Carbon Dioxide 34.7 mmol/L Bedside Glucose 212 159 Vancomycin Level Trough 3.7 ug/mL Test 05/16/21 00:00 05/16/21 04:29 05/16/21 04:48 Bedside Glucose 163 Blood Gas Sample Site ART LINE Blood Gas pH 7.325 Blood Gas PCO2 82.9 mmHg Blood Gas PO2 60.7 mmHg Blood Gas HCO3 42.2 mmol/L Blood Gas Base Excess 13.0 mmol/L Lucas Test N/A Arterial Blood Oxygen Saturation 89.7 % Deoxyhemoglobin 10.2 % Carboxyhemoglobin 0.9 % Methemoglobin 0.4 % Total Hemoglobin 11.7 % Total Oxygen Concentration 14.6 % Blood Gas Temperature 37.0 Oxygen Delivery Method (LAB) VENTILATOR Blood Gas Vent Mode AC+ Blood Gas Vent Rate 35 FiO2 100 % Blood Gas Tidal Volume 320 ML Blood Gas PEEP 16.0 CMH2O Total Carbon Dioxide 44.8 mmol/L White Blood Count 10.9 10^3/uL Red Blood Count 3.71 10^6/uL Hemoglobin 11.0 g/dL Hematocrit 35.3 % Mean Corpuscular Volume 95.1 fL Mean Corpuscular Hemoglobin 29.6 pg Mean Corpuscular Hemoglobin Concent 31.2 g/dL Red Cell Distribution Width 12.2 % Platelet Count 173 10^3/uL Mean Platelet Volume 10.8 fL Neutrophils (%) (Auto) 78.7 % Lymphocytes (%) (Auto) 13.2 % Monocytes (%) (Auto) 3.9 % Neutrophils # (Auto) 8.6 10^3/uL Lymphocytes # (Auto) 1.44 10^3/uL1 Monocytes # (Auto) 0.4 10^3/uL Absolute Immature Granulocyte (auto 0.06 10^3 u/L Absolute Eosinophils (auto) 0.5 10^3/uL Immature Granulocytes % 0.60 % Eosinophils % 4.1 % Basophils % 0.1 % Basophils # 0.0 10^3/uL Erythrocyte Sedimentation Rate 70 mm/hr D-Dimer 1.80 mg/L Sodium Level 145 mmol/L Potassium Level 3.2 mmol/L Chloride Level 106.0 mmol/L Carbon Dioxide Level 38.9 mmol/L Anion Gap 3.3 Blood Urea Nitrogen 21 mg/dL Creatinine 0.35 mg/dL Estimated GFR () 254.9 Est GFR (CKD-EPI)(Non-Afr Malaysian) 210.7 BUN/Creatinine Ratio 60.0 Glucose Level 172 mg/dL Calcium Level 8.1 mg/dL Total Bilirubin 0.3 mg/dL Aspartate Amino Transf (AST/SGOT) 38 U/L Alanine Aminotransferase (ALT/SGPT) 33 U/L Alkaline Phosphatase 41 U/L Lactate Dehydrogenase 260 U/L C-Reactive Protein 3.48 mg/dL Total Protein 5.8 g/dL Albumin 2.0 g/dL Globulin 3.8 Albumin/Globulin Ratio 0.526 HIV (1&2) Antibody Screen NON-REACTIVE Height (Feet): 5 Height (Inches): 5 Current Weight: 192 Usual Weight: 225 %IBW: 162 Recent Weight Change: Yes (wt down 8# from last assessment) Weight Status: Obese GI Symptoms: Constipation (pt with no BM since the th per RN) Food Allergies: No Cultural/Ethnic/Lutheran Cookie: none known Usual Diet at Home: regular Skin Integrity/Comment: No Current %PO: NPO Calories/Kcals/Kg: abbe st eq Kcals Calculated: 1750 kcal Protein g/k-1.5 g/kg IBW Protein Calculated: 56-85g Fluid: ml: 2363 ml (25 ml/kg) Nutritional Problem: No Cur. Nutritional Probl Signs/Symptoms: TPN meeting at least 75% of nutrition needs currently RD Comments: Increase clinimix 10cc Q12h until goal rate of 85 ml/hr is met. Continue 250 ml of 20% lipid emulsion q48h at 15 ml/hr. Clinimix and lipid emulsion combined will provide 1700 kcal, 306g carbs, 102g protein, and 25g fat to meet 100% of patient's nutrition needs. Consider running trickle feeds of Jevity 1.2 at 10 ml/hr to maintain gut integrity Continue to monitor electrolytes and triglycerides. Monitor BG and correct as indicated. Expected Outcomes clinimix at goal rate in 12 hours, meeting 100% of pt's nutrition needs discharge goal is pending Malnutrtion/Nutrition Risk Edu: No MD Notificiation Needed?: No Viviane Martini May 16, 2021 15:22
[2021-05-16] MEDS ORDERED: NS 500ML 500 ML IV ONE (16:46)
[2021-05-16] MEDS: KCL 20 MEQ/100 ML IV SCH ×3 (16:49→20:00)
[2021-05-16] MEDS: LIPID EMULSION IV SCH (16:50)
[2021-05-16] MEDS: OFIRMEV IV PRN (16:50)
[2021-05-16] MEDS: VANCOMYCIN HCL 1.5 GM in NS 250ML 300 ML IV SCH ×2 (17:55)
--- NOTE | 2021-05-16 18:00 | NUR ---
PLACED IN PRONE POSITION WITH 6 PERSON ASSIST. RT @ BEDSIDE. PATIENT TOLERATED WELL.
--- NOTE | 2021-05-16 21:26 | PRM.PN ---
Subjective Subjective Date: May 16, 2021 Time: 13:30 Subjective Discussed patient status with family members by phone today including high vent settings and overall poor prognosis, but that we continue to treat her to the best of our abilities with a low chance of survival VTE VTE Risk Total Score: 5 VTE Risk Score VTE Risk: Score 0-1 = Low Risk (Aggressive mobilization; early ambulation; no VTE prophylaxis required) Score 2: Moderate Risk (Intermittent/Pneumatic Compression Device OR Lovenox/Heparin/Coumadin) Score 3-4: High Risk (Intermittent/Pneumatic Compression Device AND Lovenox/Heparin/Coumadin) Score > or =5: Highest Risk (Intermittent/Pneumatic Compression Device AND Lovenox/Heparin/Coumadin) Antico:Hep/LMWH/Coum/Xarelto: Yes Mechanical device ordered: Yes Review of Systems Constitutional: No: Fever, Chills, Weakness Eyes: No: Pain, Vision change, Conjunctivae inflammation, Eyelid inflammation, Other, Redness ENT: No: Ear pain, Ear discharge, Nose pain, Nose discharge, Nose congestion, Mouth pain, Mouth swelling, Throat pain, Throat swelling, Other Respiratory: No: Cough, Dry, Shortness of breath, SOB with excertion Cardiovascular: No: Chest Pain, Orthopnea Gastrointestinal: No: Nausea, Vomiting, Abdominal Pain, Diarrhea, Constipation, Melena, Hematochezia, Other Genitourinary: No Dysuria, No Frequency Musculoskeletal: No: back pain, hand pain Skin: No: Jaundice Neurological: No: Weakness, Numbness, Incoordination Allergies: Coded Allergies: ibuprofen (Verified Allergy, Unknown, 04/29/21) naproxen (Verified Allergy, Unknown, 04/29/21) Objective Vitals and I/O Vital Sign - Last 24 Hours 05/16/21 05/16/21 05/16/21 05/16/21 07:00 07:15 07:20 07:20 Temp 99.7 99.5 Pulse 66 65 B/P (MAP) 107/50 (69) 105/50 (68) Pulse Ox 97 97 O2 Delivery Mechanical Ventilator FiO2 100 05/16/21 05/16/21 05/16/21 05/16/21 07:30 07:45 07:47 07:48 Temp 99.5 99.5 Pulse 64 64 63 63 Resp 35 35 35 B/P (MAP) 103/50 (67) 103/51 (68) Pulse Ox 97 99 98 98 O2 Delivery Mechanical Ventilator FiO2 100 100 05/16/21 05/16/21 05/16/21 05/16/21 08:00 08:15 08:30 08:45 Temp 99.5 99.7 99.7 99.7 Pulse 63 63 63 64 Resp 35 B/P (MAP) 105/56 (72) 106/50 (68) 105/49 (67) 107/49 (68) 103/49 (67) Pulse Ox 99 99 100 100 05/16/21 05/16/21 05/16/21 05/16/21 09:00 09:15 09:30 09:45 Temp 99.7 99.7 99.7 Pulse 64 63 68 89 Resp 35 B/P (MAP) 104/47 (66) 112/55 (74) 139/70 (93) 295/288 (290) Pulse Ox 99 100 100 95 05/16/21 05/16/21 05/16/21 05/16/21 09:51 10:00 10:15 10:30 Temp 99.5 99.3 99.3 Pulse 118 129 92 89 Resp 37 35 B/P (MAP) 141/86 (104) 124/60 (81) 128/60 (82) 140/73 (95) Pulse Ox 89 92 91 93 FiO2 100 05/16/21 05/16/21 05/16/21 05/16/21 10:45 11:00 11:15 11:30 Temp 99.5 99.5 99.3 99.1 Pulse 80 99 84 91 Resp 35 B/P (MAP) 114/50 (71) 124/56 (78) 107/45 (65) 102/45 (64) Pulse Ox 92 95 93 94 05/16/21 05/16/21 05/16/21 05/16/21 11:45 11:47 12:00 12:15 Temp 99.1 99.0 99.0 Pulse 86 86 93 76 Resp 37 B/P (MAP) 96/43 (60) 98/58 (71) 91/45 (60) 101/47 (65) Pulse Ox 93 94 94 93 FiO2 100 05/16/21 05/16/21 05/16/21 05/16/21 12:30 12:45 12:45 12:45 Temp 99.0 99.1 Pulse 69 68 Resp 35 B/P (MAP) 98/48 (65) 99/50 (66) Pulse Ox 95 96 O2 Delivery Mechanical Ventilator FiO2 100 05/16/21 05/16/21 05/16/21 05/16/21 13:00 13:15 13:20 13:30 Temp 99.1 99.3 99.5 Pulse 66 65 64 72 Resp 36 35 B/P (MAP) 100/50 (67) 103/51 (68) 116/59 (78) Pulse Ox 97 98 99 100 FiO2 100 05/16/21 05/16/21 05/16/21 05/16/21 13:45 14:00 14:15 14:30 Temp 99.5 99.9 99.9 100.0 Pulse 62 64 69 71 Resp 35 B/P (MAP) 101/49 (66) 93/52 (66) 144/67 (92) 112/51 (71) 90/43 (59) Pulse Ox 100 100 100 100 05/16/21 05/16/21 05/16/21 05/16/21 14:45 15:00 15:15 15:23 Temp 100.2 100.4 100.6 Pulse 68 67 67 63 Resp 36 B/P (MAP) 110/49 (69) 110/50 (70) 111/51 (71) Pulse Ox 100 100 99 99 FiO2 100 05/16/21 05/16/21 05/16/21 05/16/21 15:30 15:45 16:00 16:15 Temp 100.6 100.6 100.8 100.9 Pulse 67 68 68 68 Resp 35 B/P (MAP) 113/51 (71) 110/50 (70) 115/59 (77) 110/51 (70) 109/50 (69) Pulse Ox 99 99 99 100 05/16/21 05/16/21 05/16/21 05/16/21 16:30 16:30 16:30 16:45 Temp 100.9 101.1 Pulse 68 68 Resp 35 B/P (MAP) 110/51 (70) 110/51 (70) Pulse Ox 100 99 O2 Delivery Mechanical Ventilator FiO2 100 05/16/21 05/16/21 05/16/21 05/16/21 17:00 17:15 17:30 17:45 Temp 101.1 101.1 101.1 101.1 Pulse 67 64 63 63 Resp 35 B/P (MAP) 110/51 (70) 103/48 (66) 102/47 (65) 99/45 (63) Pulse Ox 100 100 100 100 05/16/21 05/16/21 05/16/21 05/16/21 17:46 18:00 18:11 18:15 Temp 101.1 101.1 Pulse 63 64 61 Resp 35 44 B/P (MAP) 103/56 (72) 116/55 (75) 102/46 (64) Pulse Ox 100 100 92 100 FiO2 100 05/16/21 05/16/21 05/16/21 05/16/21 19:00 19:15 19:30 19:45 Temp 100.4 100.2 100.2 100.2 Pulse 69 69 67 66 B/P (MAP) 104/47 (66) 105/47 (66) 115/51 (72) 112/50 (70) Pulse Ox 98 98 98 98 05/16/21 05/16/21 05/16/21 05/16/21 19:52 20:00 20:05 20:15 Temp 100.2 100.2 100.0 Pulse 65 67 68 67 Resp 35 B/P (MAP) 109/67 (81) 132/78 (96) 136/62 (86) 115/51 (72) 136/64 (88) Pulse Ox 98 99 99 98 FiO2 100 05/16/21 05/16/21 05/16/21 05/16/21 20:30 20:35 20:45 20:55 Temp 100.0 100.0 Pulse 67 68 68 Resp 35 B/P (MAP) 119/53 (75) 117/52 (73) Pulse Ox 97 99 98 O2 Delivery Mechanical Ventilator Mechanical Ventilator 05/16/21 20:57 Pulse 68 FiO2 100 Intake and Output 05/16/21 07:00 Intake Total 5467 ml Output Total 4155 ml Balance 1312 ml General: Other (Intubated sedated.) HEENT: Atraumatic, PERRLA, EOMI Neck: Supple, No JVD Lungs: Other (Coarse bilateral breath sounds, respirations non labored) Heart: No murmurs Abdomen: Normal bowel sounds, Soft Extremities: No clubbing, No cyanosis Skin: No rashes, No breakdown Neuro: Normal speech, Strength at 5/5 X4 ext, Other (Intubated sedated.) Psych/Mental Status: Other (Intubated sedated.) All Results(Lab/Rad) Laboratory Tests Test 05/02/21 06:37 05/02/21 08:25 White Blood Count 7.6 10^3/uL Red Blood Count 4.62 10^6/uL Hemoglobin 13.6 g/dL Hematocrit 40.6 % Mean Corpuscular Volume 87.9 fL Mean Corpuscular Hemoglobin 29.4 pg Mean Corpuscular Hemoglobin Concent 33.5 g/dL Red Cell Distribution Width 12.0 % Platelet Count 268 10^3/uL Mean Platelet Volume 10.5 fL Neutrophils (%) (Auto) 82.9 % Lymphocytes (%) (Auto) 11.7 % Monocytes (%) (Auto) 5.4 % Neutrophils # (Auto) 6.3 10^3/uL Lymphocytes # (Auto) 0.89 10^3/uL1 Monocytes # (Auto) 0.4 10^3/uL Absolute Immature Granulocyte (auto 0.12 10^3 u/L Absolute Eosinophils (auto) 0.0 10^3/uL Immature Granulocytes % 1.60 % Eosinophils % 0.0 % Basophils % 0.0 % Basophils # 0.0 10^3/uL Sodium Level 140 mmol/L Potassium Level 4.7 mmol/L Chloride Level 104.0 mmol/L Carbon Dioxide Level 27.6 mmol/L Anion Gap 13.1 Blood Urea Nitrogen 14 mg/dL Creatinine 0.62 mg/dL Estimated GFR () 131.8 Est GFR (CKD-EPI)(Non-Afr Fijian) 108.9 BUN/Creatinine Ratio 22.0 Glucose Level 121 mg/dL Calcium Level 8.8 mg/dL Total Bilirubin 0.4 mg/dL Aspartate Amino Transf (AST/SGOT) 26 U/L Alanine Aminotransferase (ALT/SGPT) 37 U/L Alkaline Phosphatase 42 U/L Total Protein 6.7 g/dL Albumin 2.5 g/dL Globulin 4.2 Albumin/Globulin Ratio 0.595 Blood Gas Sample Site RT RADIAL ARTERY Blood Gas pH 7.405 Blood Gas PCO2 41.1 mmHg Blood Gas PO2 82.5 mmHg Blood Gas HCO3 25.2 mmol/L Blood Gas Base Excess 0.4 mmol/L Lucas Test POSITIVE Arterial Blood Oxygen Saturation 95.5 % Deoxyhemoglobin 4.5 % Carboxyhemoglobin 0.6 % Methemoglobin 0.3 % Total Hemoglobin 14.6 % Total Oxygen Concentration 19.5 % Blood Gas Temperature 37 Oxygen Delivery Method (LAB) BIPAP15/7 FiO2 99 % Total Carbon Dioxide 26.4 mmol/L Current Medications Medications (Trade) Dose Ordered Sig/Davon Route PRN Reason Start Time Stop Time Status Last Admin Dose Admin Remdesivir 200 mg/ Sodium Chloride 140 ml @ 120.69 mls/ hr OT STAT IV 04/28/21 19:53 04/29/21 08:10 DC 04/28/21 19:53 Remdesivir 100 mg/ Sodium Chloride 120 ml @ 111.111 mls/hr Q24HRS IV 04/29/21 20:00 05/02/21 21:05 05/01/21 20:50 Famotidine (Pepcid) 20 mg BID PO 04/28/21 21:00 05/28/21 20:59 05/02/21 09:29 Sucralfate (Carafate) 1 gm ACHS PO 04/28/21 21:00 05/28/21 20:59 05/02/21 07:30 Enoxaparin Sodium (Lovenox) 40 mg Q24HRS SQ 04/28/21 20:00 05/28/21 19:59 05/01/21 20:50 Sucralfate (Carafate) 1 gm STK-MED ONCE PO 04/28/21 20:56 04/28/21 20:56 DC Lorazepam (Ativan) 1 mg Q4HR PRN IV ANXIETY 04/29/21 00:00 05/29/21 00:00 04/30/21 22:30 Lorazepam (Ativan) 0.5 mg Q4HR PRN IV ANXIETY 04/29/21 00:00 05/29/21 00:00 Fentanyl Citrate (Sublimaze) 50 mcg STK-MED ONCE .ROUTE 04/29/21 11:37 04/29/21 11:38 DC Fentanyl Citrate (Sublimaze) 12.5 mcg OT ONCE IV 04/29/21 15:00 04/29/21 15:06 DC 04/29/21 13:35 Acetaminophen (Tylenol) 650 mg Q6HR PRN PO PAIN 1 - 3 04/30/21 18:00 05/02/21 18:00 05/01/21 06:28 Dexmedetomidine HCl 200 mcg/ Sodium Chloride 50 ml @ 0 mls/hr IV 05/01/21 10:30 05/01/21 11:28 DC Sodium Chloride 250 ml @ ud STK-MED ONCE .ROUTE 05/01/21 20:40 05/01/21 20:40 DC Course Sepsis Screening Results: Posi: POSITIVE++ Sepsis Qualifier/Stage: SEVERE SEPSIS RISK Duration or Total Time Spent w: 60min Vitals & review Data Vital Sign - Last 24 Hours 05/02/21 05/02/21 05/02/21 05/02/21 08:00 08:07 08:15 08:22 Pulse 64 45 47 83 Resp 24 21 19 33 B/P (MAP) 104/59 (74) Pulse Ox 93 95 95 86 O2 Delivery S/T FiO2 100 05/02/21 05/02/21 05/02/21 05/02/21 08:31 08:37 08:45 08:52 Pulse 69 68 65 75 Resp 24 31 30 35 B/P (MAP) 137/87 (104) Pulse Ox 95 95 93 91 05/02/21 05/02/21 05/02/21 05/02/21 08:54 09:00 09:00 09:07 Pulse 62 64 64 Resp 10 24 38 B/P (MAP) 119/74 (89) Pulse Ox 89 93 89 O2 Delivery Bi-pap Bi-pap O2 Flow Rate 100.00 FiO2 99 05/02/21 05/02/21 05/02/21 05/02/21 09:10 09:16 09:22 09:30 Pulse 106 62 63 83 Resp 26 29 32 29 B/P (MAP) 160/72 (101) 135/77 (96) Pulse Ox 89 89 90 81 O2 Delivery Comfort Doug O2 Flow Rate 50.00 FiO2 100 05/02/21 05/02/21 05/02/21 05/02/21 09:37 09:46 09:52 10:00 Pulse 73 74 70 55 Resp 16 34 27 16 B/P (MAP) 174/107 (129) Pulse Ox 85 82 83 95 O2 Delivery S/T FiO2 100 05/02/21 05/02/21 05/02/21 05/02/21 10:00 10:07 10:15 10:22 Pulse 60 66 68 65 Resp 23 36 23 B/P (MAP) 115/77 (90) 114/79 (91) Pulse Ox 92 93 92 92 Laboratory Tests Test 05/01/21 04:32 05/01/21 11:20 05/02/21 06:37 05/02/21 08:25 White Blood Count 10.2 10^3/uL 7.6 10^3/uL Red Blood Count 4.50 10^6/uL 4.62 10^6/uL Hemoglobin 13.3 g/dL 13.6 g/dL Hematocrit 39.6 % 40.6 % Mean Corpuscular Volume 88.0 fL 87.9 fL Mean Corpuscular Hemoglobin 29.6 pg 29.4 pg Mean Corpuscular Hemoglobin Concent 33.6 g/dL 33.5 g/dL Red Cell Distribution Width 12.1 % 12.0 % Platelet Count 234 10^3/uL 268 10^3/uL Mean Platelet Volume 10.4 fL 10.5 fL Sodium Level 139 mmol/L 140 mmol/L Potassium Level 3.9 mmol/L 4.7 mmol/L Chloride Level 105.0 mmol/L 104.0 mmol/L Carbon Dioxide Level 26.8 mmol/L 27.6 mmol/L Anion Gap 11.1 13.1 Blood Urea Nitrogen 12 mg/dL 14 mg/dL Creatinine 0.56 mg/dL 0.62 mg/dL Estimated GFR () 148.2 131.8 Est GFR (CKD-EPI)(Non-Afr Fijian) 122.5 108.9 BUN/Creatinine Ratio 21.0 22.0 Glucose Level 87 mg/dL 121 mg/dL Calcium Level 8.8 mg/dL 8.8 mg/dL Total Bilirubin 0.5 mg/dL 0.4 mg/dL Aspartate Amino Transf (AST/SGOT) 36 U/L 26 U/L Alanine Aminotransferase (ALT/SGPT) 39 U/L 37 U/L Alkaline Phosphatase 43 U/L 42 U/L Total Protein 6.7 g/dL 6.7 g/dL Albumin 2.5 g/dL 2.5 g/dL Globulin 4.2 4.2 Albumin/Globulin Ratio 0.595 0.595 Blood Gas Sample Site RT RADIAL ARTERY RT RADIAL ARTERY Blood Gas pH 7.459 7.405 Blood Gas PCO2 31.9 mmHg 41.1 mmHg Blood Gas PO2 86.7 mmHg 82.5 mmHg Blood Gas HCO3 22.1 mmol/L 25.2 mmol/L Blood Gas Base Excess -0.8 mmol/L 0.4 mmol/L Lucas Test POSITIVE POSITIVE Arterial Blood Oxygen Saturation 96.2 % 95.5 % Deoxyhemoglobin 3.8 % 4.5 % Carboxyhemoglobin 0.1 % 0.6 % Methemoglobin 0.1 % 0.3 % Total Hemoglobin 14.8 % 14.6 % Total Oxygen Concentration 20.0 % 19.5 % Blood Gas Temperature 37.0 37 Oxygen Delivery Method (LAB) BIPAP BIPAP15/[address] FiO2 80 % 99 % Total Carbon Dioxide 23.1 mmol/L 26.4 mmol/L Neutrophils (%) (Auto) 82.9 % Lymphocytes (%) (Auto) 11.7 % Monocytes (%) (Auto) 5.4 % Neutrophils # (Auto) 6.3 10^3/uL Lymphocytes # (Auto) 0.89 10^3/uL1 Monocytes # (Auto) 0.4 10^3/uL Absolute Immature Granulocyte (auto 0.12 10^3 u/L Absolute Eosinophils (auto) 0.0 10^3/uL Immature Granulocytes % 1.60 % Eosinophils % 0.0 % Basophils % 0.0 % Basophils # 0.0 10^3/uL Current Medications Medications (Trade) Dose Ordered Sig/Davon PRN Reason Start Time Stop Time Status Last Admin Acetaminophen (Tylenol) 650 mg Q6HR PRN PAIN 1 - 3 04/30/21 18:00 05/02/21 18:00 05/01/21 06:28 Remdesivir 100 mg/ Sodium Chloride 120 ml @ 111.111 mls/hr Q24HRS 04/29/21 20:00 05/02/21 21:05 05/01/21 20:50 LEVEL 1 SEPSIS INFECTION CRITE: ABX Therapy, Flu-Pneumonia LEVEL 2-SIRS (LIST ALL THAT AP: RR>20/min, HR>90/min Cardiovascular Evidence: Not Assessed or None Hematologic Evidence: None/Not assessed Hepatic Evidence: None/Not assessed Metabolic Evidence: None/Not assessed Neurological Evidence: None/Not assessed Respiratory Evidence: Acute Resp failure, Need for O2 to keep>90%, O2 SAT<90room air Renal Evidence: None/Not assessed O2 Sat by Pulse Oximetry: 98 Respiratory End-tidal CO2: 47 Oxygen Flow Rate: 24.00 Assessment/Plan Assessment/Plan Assessment/Plan ASSESSMENT / PLAN: 1) Acute Hypoxemic Respiratory Failure / Severe ARDS: Pt remains intubated (since 05/06/21) and sedated at this time. Will continue VENT management as per Tele-ICU Spot Cleaner. 2) COVID-19 +: Pt has completed Tx with Remdesivir, and remains on Dexamethasone for now. She would benefit from ECMO and/or lung transplant evaluation. However, due to the Pandemic and COVID surge, no beds are av ailable for transfer to a Higher Level of Care in [place], [place], or [place] at this time. She still remains on the "wait list" for several facilities 3) BL Pneumonia: Due to #2 above. Steffany has been DC'd. Continue supportive care. Febrile overnight: urine and blood culture obtained. Midline removed and tip cultured. Vancomycin and Cefepime started ID consult. Repeat procalcitonin 0.17 4) Hyperglycemia: Exacerbated by Steroids and TF. HgbA1c is 6.5. 5) GI and DVT prophylaxis: Will continue Pepcid and Lovenox (T-dose). 6) Check BNP consider ECHO if elevated Critical Care Recommendations: Patient is a 35 yo with COVID and hypoxic respiratory failure/ARDS. Ventilated 10 days. Now with fever on broad spectrum antibiotics. Vent settings VC 35/320/1.0/+16 1. COVID pneumonia with hypoxic and hypercarbic respiratory failure, severe persistent ARDS - s/p course of remdesivir; completing course of steroids - periodic proning for persistent severe ARDS and hypoxia, some response in saturation with this - sedated with midazolam, dexmetatomidine and fentanyl; off propofol due to elevated triglycerides - paralyzed with intermittent vecuronium - on several wait lists for ECMO - full dose anticoagulation 2. Fever- persistent despite antibiotics, unclear source. PCT 0.17 - f/u cultures - empiric cefepime and vanc - seen by ID with recommendations for further w/u and Rx if persists 3. Hyperglycemia- continue management Patient seen through remote audiovisual assessment through HIPAA compliant s etup. All relevant labs, flowsheets, and images reviewed. Plan of care discussed with ICU bedside team. Cumulative nonprocedural critical care time spent in directed patient care = 60 min JC Christy MD May 16, 2021 21:26
[2021-05-17] VITALS (97 sets, daily range): BP systolic 86–135; BP diastolic 38–86
[2021-05-17] MEDS: VANCOMYCIN HCL 1.5 GM in NS 250ML 300 ML IV SCH ×3 (01:00→17:31)
[2021-05-17] MEDS ORDERED: NS 250ML 250 ML ONE (01:55)
[2021-05-17] MEDS ORDERED: VANCOMYCIN HCL 1 GM ONE (01:55)
[2021-05-17] MEDS: PRECEDEX 400 MCG/100 ML INJECT 100 ML IV SCH ×6 (02:28→23:21)
[2021-05-17] MEDS: NORCURON IV PRN ×2 (04:30→08:12)
[2021-05-17 05:28] LABS: ABG PCO2 75.8 mmHg (35.0-45.0); ABG PH 7.328 (7.350-7.450); BE(B) 10.4 mmol/L (-2.0-2.0); HCO3act 38.9 mmol/L (22.0-26.0); pO2 77.7 mmHg (80.0-100.0)
[2021-05-17 06:19] LABS: BASOPHIL % 0.2 % (0.0-0.2); EOSINOPHIL # 0.6 10^3/uL (0.0-0.2); EOSINOPHIL % 4.4 % (0.0-5.0); LYMPHOCYTES # 2.08 10^3/uL1 (1.0-4.8); LYMPHOCYTES % 16.8 % (24.0-44.0); MEAN CORP HGB 29.5 pg (26-34); MONOCYTES # 0.5 10^3/uL (0.3-0.8); MONOCYTES % 3.8 % (5.0-12.0); NEUTROPHIL # 9.3 10^3/uL (1.8-7.7); NEUTROPHILS % 74.8 % (41.0-85.0); PLATELET COUNT 191 10^3/uL (150-400); RED CELL DISTRIBUTION WIDTH 12.3 % (11.5-14.5)
[2021-05-17 06:45] LABS: CALCIUM 8.1 mg/dL (8.4-10.5); CARBON DIOXIDE 38.7 mmol/L (20.0-32)
[2021-05-17] MEDS: SUBLIMAZE IV SCH ×2 (08:12→23:26)
[2021-05-17] MEDS: NS IV SCH ×3 (08:12→23:26)
[2021-05-17] MEDS: MAXIPIME 2 GM in NS 100ML 100 ML IV SCH ×2 (08:13→20:34)
[2021-05-17] MEDS: LOVENOX SQ SCH ×2 (08:13→20:30)
[2021-05-17] MEDS: DEXAMETHASONE 10 MG/ML VIAL IV SCH (08:13)
[2021-05-17] MEDS: LASIX IV SCH ×2 (08:13→20:34)
[2021-05-17] MEDS: PEPCID IV SCH ×2 (08:13→20:34)
--- NOTE | 2021-05-17 09:00 | NUR ---
DR. MOONEY FOR TELEMED @ BEDSIDE VIA MONITOR FOR ROUNDS. NEW ORDERS RECEIVED TO HOLD OFF ON PRONING FOR NOW AND DECREASE TO 90% FIO2 CONSULT WITH DIETARY ABOUT TRANSITIONING TO TUBE FEEDINGS. CALLED DIETITIAN AND NO ANSWER.
--- NOTE | 2021-05-17 10:24 | TELE.CONS ---
Consultation Reason for Consult: Reason for Consultation: COVID ARDS Review of Systems Constitutional: No: Fever, Chills, Weakness Eyes: No: Pain, Vision change, Conjunctivae inflammation, Eyelid inflammation, Other, Redness ENT: No: Ear pain, Ear discharge, Nose pain, Nose discharge, Nose congestion, Mouth pain, Mouth swelling, Throat pain, Throat swelling, Other Respiratory: No: Cough, Dry, Shortness of breath, SOB with excertion Cardiovascular: No: Chest Pain, Orthopnea Gastrointestinal: No: Nausea, Vomiting, Abdominal Pain, Diarrhea, Constipation, Melena, Hematochezia, Other Genitourinary: No Dysuria, No Frequency Musculoskeletal: No: back pain, hand pain Skin: No: Jaundice Neurological: No: Weakness, Numbness, Incoordination Allergies: Coded Allergies: ibuprofen (Verified Allergy, Unknown, 04/29/21) naproxen (Verified Allergy, Unknown, 04/29/21) VITALS REVIEW VITALS Laboratory Tests Test 04/29/21 04:35 04/30/21 04:28 05/01/21 04:32 05/01/21 11:20 White Blood Count 6.2 10^3/uL 6.4 10^3/uL 10.2 10^3/uL Red Blood Count 4.64 10^6/uL 4.49 10^6/uL 4.50 10^6/uL Hemoglobin 13.5 g/dL 13.3 g/dL 13.3 g/dL Hematocrit 41.2 % 39.3 % 39.6 % Mean Corpuscular Volume 88.8 fL 87.5 fL 88.0 fL Mean Corpuscular Hemoglobin 29.1 pg 29.6 pg 29.6 pg Mean Corpuscular Hemoglobin Concent 32.8 g/dL 33.8 g/dL 33.6 g/dL Red Cell Distribution Width 12.5 % 12.1 % 12.1 % Platelet Count 162 10^3/uL 195 10^3/uL 234 10^3/uL Mean Platelet Volume 10.9 fL 10.8 fL 10.4 fL Neutrophils (%) (Auto) 72.3 % 70.8 % Lymphocytes (%) (Auto) 19.0 % 20.6 % Monocytes (%) (Auto) 8.4 % 8.4 % Neutrophils # (Auto) 4.5 10^3/uL 4.5 10^3/uL Lymphocytes # (Auto) 1.17 10^3/uL1 1.32 10^3/uL1 Monocytes # (Auto) 0.5 10^3/uL 0.5 10^3/uL Absolute Immature Granulocyte (auto 0.02 10^3 u/L 0.04 10^3 u/L Absolute Eosinophils (auto) 0.0 10^3/uL 0.0 10^3/uL Immature Granulocytes % 0.30 % 0.60 % Eosinophils % 0.0 % 0.0 % Basophils % 0.0 % 0.2 % Basophils # 0.0 10^3/uL 0.0 10^3/uL Sodium Level 141 mmol/L 142 mmol/L 139 mmol/L Potassium Level 4.0 mmol/L 3.9 mmol/L 3.9 mmol/L Chloride Level 106.0 mmol/L 106.0 mmol/L 105.0 mmol/L Carbon Dioxide Level 25.2 mmol/L 26.2 mmol/L 26.8 mmol/L Anion Gap 13.8 13.7 11.1 Blood Urea Nitrogen 12 mg/dL 17 mg/dL 12 mg/dL Creatinine 0.65 mg/dL 0.54 mg/dL 0.56 mg/dL Estimated GFR () 124.8 154.6 148.2 Est GFR (CKD-EPI)(Non-Afr [place]) 103.1 127.7 122.5 BUN/Creatinine Ratio 18.0 31.0 21.0 Glucose Level 98 mg/dL 92 mg/dL 87 mg/dL Calcium Level 8.6 mg/dL 8.4 mg/dL 8.8 mg/dL Total Bilirubin 0.5 mg/dL 0.5 mg/dL 0.5 mg/dL Aspartate Amino Transf (AST/SGOT) 42 U/L 40 U/L 36 U/L Alanine Aminotransferase (ALT/SGPT) 47 U/L 42 U/L 39 U/L Alkaline Phosphatase 47 U/L 43 U/L 43 U/L Total Protein 6.6 g/dL 6.6 g/dL 6.7 g/dL Albumin 2.6 g/dL 2.5 g/dL 2.5 g/dL Globulin 4.0 4.1 4.2 Albumin/Globulin Ratio 0.650 0.609 0.595 Serum HCG, Qualitative NEGATIVE Blood Gas Sample Site RT RADIAL ARTERY Blood Gas pH 7.459 Blood Gas PCO2 31.9 mmHg Blood Gas PO2 86.7 mmHg Blood Gas HCO3 22.1 mmol/L Blood Gas Base Excess -0.8 mmol/L Lucas Test POSITIVE Arterial Blood Oxygen Saturation 96.2 % Deoxyhemoglobin 3.8 % Carboxyhemoglobin 0.1 % Methemoglobin 0.1 % Total Hemoglobin 14.8 % Total Oxygen Concentration 20.0 % Blood Gas Temperature 37.0 Oxygen Delivery Method (LAB) BIPAP Blood Gas Vent Mode ST FiO2 80 % Total Carbon Dioxide 23.1 mmol/L Test 05/02/21 06:37 05/02/21 08:25 05/03/21 05:20 05/03/21 07:55 White Blood Count 7.6 10^3/uL 12.0 10^3/uL Red Blood Count 4.62 10^6/uL 4.71 10^6/uL Hemoglobin 13.6 g/dL 13.6 g/dL Hematocrit 40.6 % 41.1 % Mean Corpuscular Volume 87.9 fL 87.3 fL Mean Corpuscular Hemoglobin 29.4 pg 28.9 pg Mean Corpuscular Hemoglobin Concent 33.5 g/dL 33.1 g/dL Red Cell Distribution Width 12.0 % 11.9 % Platelet Count 268 10^3/uL 338 10^3/uL Mean Platelet Volume 10.5 fL 10.2 fL Neutrophils (%) (Auto) 82.9 % 83.2 % Lymphocytes (%) (Auto) 11.7 % 10.3 % Monocytes (%) (Auto) 5.4 % 5.1 % Neutrophils # (Auto) 6.3 10^3/uL 10.0 10^3/uL Lymphocytes # (Auto) 0.89 10^3/uL1 1.24 10^3/uL1 Monocytes # (Auto) 0.4 10^3/uL 0.6 10^3/uL Absolute Immature Granulocyte (auto 0.12 10^3 u/L 0.14 10^3 u/L Absolute Eosinophils (auto) 0.0 10^3/uL 0.0 10^3/uL Immature Granulocytes % 1.60 % 1.20 % Eosinophils % 0.0 % 0.1 % Basophils % 0.0 % 0.1 % Basophils # 0.0 10^3/uL 0.0 10^3/uL Sodium Level 140 mmol/L 140 mmol/L Potassium Level 4.7 mmol/L 4.3 mmol/L Chloride Level 104.0 mmol/L 103.0 mmol/L Carbon Dioxide Level 27.6 mmol/L 28.1 mmol/L Anion Gap 13.1 13.2 Blood Urea Nitrogen 14 mg/dL 18 mg/dL Creatinine 0.62 mg/dL 0.65 mg/dL Estimated GFR () 131.8 124.8 Est GFR (CKD-EPI)(Non-Afr [place]) 108.9 103.1 BUN/Creatinine Ratio 22.0 27.0 Glucose Level 121 mg/dL 107 mg/dL Calcium Level 8.8 mg/dL 8.9 mg/dL Total Bilirubin 0.4 mg/dL 0.6 mg/dL Aspartate Amino Transf (AST/SGOT) 26 U/L 26 U/L Alanine Aminotransferase (ALT/SGPT) 37 U/L 31 U/L Alkaline Phosphatase 42 U/L 41 U/L Total Protein 6.7 g/dL 6.8 g/dL Albumin 2.5 g/dL 2.6 g/dL Globulin 4.2 4.2 Albumin/Globulin Ratio 0.595 0.619 Blood Gas Sample Site RT RADIAL ARTERY LEFT RADIAL ARTERY Blood Gas pH 7.405 7.416 Blood Gas PCO2 41.1 mmHg 37.1 mmHg Blood Gas PO2 82.5 mmHg 149.3 mmHg Blood Gas HCO3 25.2 mmol/L 23.3 mmol/L Blood Gas Base Excess 0.4 mmol/L -0.8 mmol/L Lucas Test POSITIVE POSITIVE Arterial Blood Oxygen Saturation 95.5 % 98.7 % Deoxyhemoglobin 4.5 % 1.3 % Carboxyhemoglobin 0.6 % 0.4 % Methemoglobin 0.3 % 0.5 % Total Hemoglobin 14.6 % 14.5 % Total Oxygen Concentration 19.5 % 20.2 % Blood Gas Temperature 37 37.00 Oxygen Delivery Method (LAB) BIPAP15/7 BP 15/7 FiO2 99 % 100 % Total Carbon Dioxide 26.4 mmol/L 24.4 mmol/L Blood Gas Vent Mode S/T Test 05/03/21 10:10 05/04/21 10:08 05/05/21 05:08 05/06/21 04:30 D-Dimer 1.21 mg/L 5.32 mg/L Ferritin 697 ng/mL 724 ng/mL Lactate Dehydrogenase 329 U/L White Blood Count 17.0 10^3/uL 14.0 10^3/uL 15.9 10^3/uL Red Blood Count 4.46 10^6/uL 4.70 10^6/uL 4.43 10^6/uL Hemoglobin 12.9 g/dL 13.7 g/dL 13.2 g/dL Hematocrit 38.9 % 41.0 % 39.1 % Mean Corpuscular Volume 87.2 fL 87.2 fL 88.3 fL Mean Corpuscular Hemoglobin 28.9 pg 29.1 pg 29.8 pg Mean Corpuscular Hemoglobin Concent 33.2 g/dL 33.4 g/dL 33.8 g/dL Red Cell Distribution Width 11.8 % 11.9 % 12.0 % Platelet Count 334 10^3/uL 309 10^3/uL 290 10^3/uL Mean Platelet Volume 10.0 fL 9.8 fL 9.8 fL Neutrophils (%) (Auto) 90.6 % 88.5 % 87.7 % Lymphocytes (%) (Auto) 4.4 % 7.5 % 8.3 % Monocytes (%) (Auto) 3.9 % 3.3 % 3.5 % Neutrophils # (Auto) 15.4 10^3/uL 12.3 10^3/uL 13.9 10^3/uL Lymphocytes # (Auto) 0.75 10^3/uL1 1.05 10^3/uL1 1.32 10^3/uL1 Monocytes # (Auto) 0.7 10^3/uL 0.5 10^3/uL 0.6 10^3/uL Absolute Immature Granulocyte (auto 0.16 10^3 u/L 0.19 10^3 u/L 0.16 10^3 u/L Absolute Eosinophils (auto) 0.0 10^3/uL 0.1 10^3/uL 0.1 10^3/uL Immature Granulocytes % 0.90 % 1.40 % 1.00 % Eosinophils % 0.1 % 0.6 % 0.4 % Basophils % 0.1 % 0.1 % 0.1 % Basophils # 0.0 10^3/uL 0.0 10^3/uL 0.0 10^3/uL Sodium Level 135 mmol/L 137 mmol/L 138 mmol/L Potassium Level 3.9 mmol/L 3.6 mmol/L 3.8 mmol/L Chloride Level 102.0 mmol/L 102.0 mmol/L 103.0 mmol/L Carbon Dioxide Level 25.7 mmol/L 26.8 mmol/L 27.1 mmol/L Anion Gap 11.2 11.8 11.7 Blood Urea Nitrogen 20 mg/dL 13 mg/dL 14 mg/dL Creatinine 0.75 mg/dL 0.62 mg/dL 0.66 mg/dL Estimated GFR () 105.8 131.8 122.6 Est GFR (CKD-EPI)(Non-Afr [place]) 87.4 108.9 101.3 BUN/Creatinine Ratio 26.0 20.0 21.0 Glucose Level 135 mg/dL 86 mg/dL 96 mg/dL Calcium Level 8.8 mg/dL 8.8 mg/dL 8.8 mg/dL Total Bilirubin 0.8 mg/dL 0.8 mg/dL 0.9 mg/dL Aspartate Amino Transf (AST/SGOT) 33 U/L 35 U/L 30 U/L Alanine Aminotransferase (ALT/SGPT) 34 U/L 34 U/L 39 U/L Alkaline Phosphatase 43 U/L 41 U/L 49 U/L Total Protein 6.8 g/dL 6.7 g/dL 6.9 g/dL Albumin 2.5 g/dL 2.4 g/dL 2.4 g/dL Globulin 4.3 4.3 4.5 Albumin/Globulin Ratio 0.581 0.558 0.533 Test 05/06/21 07:27 05/06/21 19:40 05/06/21 21:55 05/07/21 04:13 Blood Gas Sample Site RT BRACIAL ARTERY LEFT RADIAL ARTERY RT RADIAL ARTERY Blood Gas pH 7.452 7.478 7.473 Blood Gas PCO2 35.8 mmHg 40.1 mmHg 36.9 mmHg Blood Gas PO2 45.9 mmHg 54.5 mmHg 38.1 mmHg Blood Gas HCO3 24.4 mmol/L 29.1 mmol/L 26.4 mmol/L Blood Gas Base Excess 0.8 mmol/L 5.2 mmol/L 2.9 mmol/L Lucas Test N/A POSITIVE POSITIVE Arterial Blood Oxygen Saturation 82.3 % 87.3 % 71.2 % Deoxyhemoglobin 17.6 % 12.5 % 28.5 % Carboxyhemoglobin 0.2 % 0.9 % 0.7 % Methemoglobin 0.2 % 0.4 % 0.4 % Total Hemoglobin 13.5 % 13.5 % 13.2 % Total Oxygen Concentration 15.5 % 16.3 % 13.0 % Oxygen Delivery Method (LAB) CF 50LPM BIPAP 15/7 VENT FiO2 100 % 100 % 100 % Total Carbon Dioxide 25.5 mmol/L 30.3 mmol/L 27.6 mmol/L Blood Gas Temperature 37 37 Blood Gas Vent Mode AC Blood Gas Vent Rate 14 Blood Gas Tidal Volume 400 ML Blood Gas PEEP 12 CMH2O White Blood Count 16.3 10^3/uL Red Blood Count 4.35 10^6/uL Hemoglobin 12.8 g/dL Hematocrit 38.4 % Mean Corpuscular Volume 88.3 fL Mean Corpuscular Hemoglobin 29.4 pg Mean Corpuscular Hemoglobin Concent 33.3 g/dL Red Cell Distribution Width 12.0 % Platelet Count 268 10^3/uL Mean Platelet Volume 9.9 fL Neutrophils (%) (Auto) 89.4 % Lymphocytes (%) (Auto) 6.1 % Monocytes (%) (Auto) 4.3 % Neutrophils # (Auto) 14.6 10^3/uL Lymphocytes # (Auto) 0.99 10^3/uL1 Monocytes # (Auto) 0.7 10^3/uL Absolute Immature Granulocyte (auto 0.14 10^3 u/L Absolute Eosinophils (auto) 0.0 10^3/uL Immature Granulocytes % 0.90 % Eosinophils % 0.1 % Basophils % 0.1 % Basophils # 0.0 10^3/uL Sodium Level 141 mmol/L Potassium Level 4.3 mmol/L Chloride Level 105.0 mmol/L Carbon Dioxide Level 29.2 mmol/L Anion Gap 11.1 Blood Urea Nitrogen 15 mg/dL Creatinine 0.68 mg/dL Estimated GFR () 118.5 Est GFR (CKD-EPI)(Non-Afr [place]) 97.9 BUN/Creatinine Ratio 22.0 Glucose Level 108 mg/dL Calcium Level 9.0 mg/dL Total Bilirubin 0.7 mg/dL Aspartate Amino Transf (AST/SGOT) 27 U/L Alanine Aminotransferase (ALT/SGPT) 39 U/L Alkaline Phosphatase 50 U/L Total Protein 6.8 g/dL Albumin 2.2 g/dL Globulin 4.6 Albumin/Globulin Ratio 0.478 Procalcitonin 0.08 ng/mL Test 05/07/21 05:02 05/07/21 06:35 05/07/21 18:09 05/08/21 00:56 Differential Total Cells Counted 100 #CELLS Segmented Neutrophils 85 % Lymphocytes 12 % Monocytes 3 % Platelet Estimate ADEQUATE Platelet Morphology NORMAL Blood Gas Sample Site RT RADIAL ARTERY Blood Gas pH 7.338 Blood Gas PCO2 48.1 mmHg Blood Gas PO2 51.4 mmHg Blood Gas HCO3 25.3 mmol/L Blood Gas Base Excess -1.0 mmol/L Lucas Test POSITIVE Arterial Blood Oxygen Saturation 82.7 % Deoxyhemoglobin 17.2 % Carboxyhemoglobin 0.4 % Methemoglobin 0.1 % Total Hemoglobin 14.5 % Total Oxygen Concentration 16.7 % Blood Gas Temperature 37 Oxygen Delivery Method (LAB) VENT Blood Gas Vent Mode AC Blood Gas Vent Rate 14 FiO2 100 % Blood Gas Tidal Volume 400 ML Blood Gas PEEP 12 CMH2O Total Carbon Dioxide 26.7 mmol/L Bedside Glucose 157 147 Test 05/08/21 04:28 05/08/21 05:50 05/08/21 17:50 05/08/21 23:51 White Blood Count 17.7 10^3/uL Red Blood Count 4.52 10^6/uL Hemoglobin 13.2 g/dL Hematocrit 41.6 % Mean Corpuscular Volume 92.0 fL Mean Corpuscular Hemoglobin 29.2 pg Mean Corpuscular Hemoglobin Concent 31.7 g/dL Red Cell Distribution Width 12.5 % Platelet Count 291 10^3/uL Mean Platelet Volume 10.2 fL Neutrophils (%) (Auto) 93.7 % Lymphocytes (%) (Auto) 4.5 % Monocytes (%) (Auto) 1.8 % Neutrophils # (Auto) 16.6 10^3/uL Lymphocytes # (Auto) 0.79 10^3/uL1 Monocytes # (Auto) 0.3 10^3/uL Absolute Immature Granulocyte (auto 0.11 10^3 u/L Absolute Eosinophils (auto) 0.0 10^3/uL Immature Granulocytes % 0.60 % Eosinophils % 0.0 % Basophils % 0.0 % Basophils # 0.0 10^3/uL Sodium Level 147 mmol/L Potassium Level 4.1 mmol/L Chloride Level 109.0 mmol/L Carbon Dioxide Level 30.6 mmol/L Anion Gap 11.5 Blood Urea Nitrogen 18 mg/dL Creatinine 0.65 mg/dL Estimated GFR () 124.8 Est GFR (CKD-EPI)(Non-Afr [place]) 103.1 BUN/Creatinine Ratio 27.0 Glucose Level 145 mg/dL Calcium Level 9.2 mg/dL Total Bilirubin 0.6 mg/dL Aspartate Amino Transf (AST/SGOT) 41 U/L Alanine Aminotransferase (ALT/SGPT) 68 U/L Alkaline Phosphatase 67 U/L Total Protein 7.1 g/dL Albumin 2.3 g/dL Globulin 4.8 Albumin/Globulin Ratio 0.479 Blood Gas Sample Site LEFT RADIAL ARTERY Blood Gas pH 7.365 Blood Gas PCO2 53.4 mmHg Blood Gas PO2 48.1 mmHg Blood Gas HCO3 29.8 mmol/L Blood Gas Base Excess 3.1 mmol/L Lucas Test POSITIVE Arterial Blood Oxygen Saturation 79.8 % Deoxyhemoglobin 20.0 % Carboxyhemoglobin 0.6 % Methemoglobin 0.4 % Total Hemoglobin 15.4 % Total Oxygen Concentration 17.1 % FiO2 100 % Blood Gas PEEP 12.0 CMH2O Total Carbon Dioxide 31.5 mmol/L Bedside Glucose 142 131 Test 05/09/21 04:20 05/09/21 07:35 05/09/21 18:10 05/09/21 20:10 White Blood Count 22.5 10^3/uL Red Blood Count 4.39 10^6/uL Hemoglobin 13.0 g/dL Hematocrit 40.7 % Mean Corpuscular Volume 92.7 fL Mean Corpuscular Hemoglobin 29.6 pg Mean Corpuscular Hemoglobin Concent 31.9 g/dL Red Cell Distribution Width 12.6 % Platelet Count 330 10^3/uL Mean Platelet Volume 10.1 fL Neutrophils (%) (Auto) 92.6 % Lymphocytes (%) (Auto) 4.1 % Monocytes (%) (Auto) 3.3 % Neutrophils # (Auto) 20.8 10^3/uL Lymphocytes # (Auto) 0.92 10^3/uL1 Monocytes # (Auto) 0.8 10^3/uL Absolute Immature Granulocyte (auto 0.10 10^3 u/L Absolute Eosinophils (auto) 0.0 10^3/uL Immature Granulocytes % 0.40 % Eosinophils % 0.0 % Basophils % 0.0 % Basophils # 0.0 10^3/uL Sodium Level 148 mmol/L Potassium Level 4.2 mmol/L Chloride Level 109.0 mmol/L Carbon Dioxide Level 30.9 mmol/L Anion Gap 12.3 Blood Urea Nitrogen 18 mg/dL Creatinine 0.65 mg/dL Estimated GFR () 124.8 Est GFR (CKD-EPI)(Non-Afr [place]) 103.1 BUN/Creatinine Ratio 27.0 Glucose Level 142 mg/dL Calcium Level 8.6 mg/dL Total Bilirubin 0.8 mg/dL Aspartate Amino Transf (AST/SGOT) 38 U/L Alanine Aminotransferase (ALT/SGPT) 55 U/L Alkaline Phosphatase 70 U/L Total Protein 6.9 g/dL Albumin 2.1 g/dL Globulin 4.8 Albumin/Globulin Ratio 0.437 Procalcitonin 0.06 ng/mL Blood Gas Sample Site RT BRACIAL ARTERY RT BRACIAL ARTERY Blood Gas pH 7.387 7.426 Blood Gas PCO2 48.3 mmHg 46.7 mmHg Blood Gas PO2 57.0 mmHg 49.5 mmHg Blood Gas HCO3 28.4 mmol/L 30.0 mmol/L Blood Gas Base Excess 2.6 mmol/L 4.8 mmol/L Lucas Test POSITIVE POSITIVE Arterial Blood Oxygen Saturation 88.1 % 83.6 % Deoxyhemoglobin 11.9 % 16.2 % Carboxyhemoglobin 0.1 % 0.9 % Methemoglobin 0.1 % 0.5 % Total Hemoglobin 13.6 % 13.9 % Total Oxygen Concentration 16.8 % 16.1 % Blood Gas Temperature 37 37 Oxygen Delivery Method (LAB) VENT VENT Blood Gas Vent Mode AC AC Blood Gas Vent Rate 14 22 FiO2 100 % 100 % Blood Gas Tidal Volume 400 ML 320 ML Blood Gas PEEP 12 CMH2O 12 CMH2O Total Carbon Dioxide 29.9 mmol/L 31.5 mmol/L Bedside Glucose 118 Test 05/09/21 23:58 05/10/21 05:00 05/10/21 05:20 05/10/21 05:44 Bedside Glucose 113 Blood Gas Sample Site LEFT RADIAL ARTERY Blood Gas pH 7.365 Blood Gas PCO2 56.9 mmHg Blood Gas PO2 54.0 mmHg Blood Gas HCO3 31.8 mmol/L Blood Gas Base Excess 5.0 mmol/L Lucas Test POSITIVE Arterial Blood Oxygen Saturation 84.6 % Deoxyhemoglobin 15.2 % Carboxyhemoglobin 0.7 % Methemoglobin 0.3 % Total Hemoglobin 12.6 % Total Oxygen Concentration 14.8 % Blood Gas Temperature 37.0 Oxygen Delivery Method (LAB) VENTILATOR Blood Gas Vent Mode AC+ Blood Gas Vent Rate 28 FiO2 100 % Blood Gas Tidal Volume 320 ML Blood Gas PEEP 14.0 CMH2O Total Carbon Dioxide 33.5 mmol/L White Blood Count 13.9 10^3/uL Red Blood Count 4.20 10^6/uL Hemoglobin 12.4 g/dL Hematocrit 39.1 % Mean Corpuscular Volume 93.1 fL Mean Corpuscular Hemoglobin 29.5 pg Mean Corpuscular Hemoglobin Concent 31.7 g/dL Red Cell Distribution Width 12.4 % Platelet Count 201 10^3/uL Mean Platelet Volume 10.3 fL Neutrophils (%) (Auto) 93.0 % Lymphocytes (%) (Auto) 4.7 % Monocytes (%) (Auto) 2.3 % Neutrophils # (Auto) 13.0 10^3/uL Lymphocytes # (Auto) 0.65 10^3/uL1 Monocytes # (Auto) 0.3 10^3/uL Absolute Immature Granulocyte (auto 0.05 10^3 u/L Absolute Eosinophils (auto) 0.0 10^3/uL Immature Granulocytes % 0.40 % Eosinophils % 0.0 % Basophils % 0.0 % Basophils # 0.0 10^3/uL Sodium Level 143 mmol/L Potassium Level 4.2 mmol/L Chloride Level 107.0 mmol/L Carbon Dioxide Level 31.5 mmol/L Anion Gap 8.7 Blood Urea Nitrogen 14 mg/dL Creatinine 0.51 mg/dL Estimated GFR () 165.1 Est GFR (CKD-EPI)(Non-Afr [place]) 136.5 BUN/Creatinine Ratio 27.0 Glucose Level 146 mg/dL Calcium Level 8.7 mg/dL Total Bilirubin 0.6 mg/dL Aspartate Amino Transf (AST/SGOT) 35 U/L Alanine Aminotransferase (ALT/SGPT) 56 U/L Alkaline Phosphatase 61 U/L Total Protein 6.3 g/dL Albumin 2.1 g/dL Globulin 4.2 Albumin/Globulin Ratio 0.500 Triglycerides Level 207 mg/dL Segmented Neutrophils 98 % Lymphocytes 1 % Monocytes 1 % Platelet Estimate ADEQUATE Platelet Morphology NORMAL Test 05/10/21 12:40 05/10/21 17:57 05/11/21 00:01 05/11/21 05:20 Bedside Glucose 136 135 120 White Blood Count 15.3 10^3/uL Red Blood Count 4.32 10^6/uL Hemoglobin 12.8 g/dL Hematocrit 39.8 % Mean Corpuscular Volume 92.1 fL Mean Corpuscular Hemoglobin 29.6 pg Mean Corpuscular Hemoglobin Concent 32.2 g/dL Red Cell Distribution Width 12.2 % Platelet Count 222 10^3/uL Mean Platelet Volume 10.7 fL Neutrophils (%) (Auto) 93.0 % Lymphocytes (%) (Auto) 4.0 % Monocytes (%) (Auto) 3.0 % Neutrophils # (Auto) 14.3 10^3/uL Lymphocytes # (Auto) 0.61 10^3/uL1 Monocytes # (Auto) 0.5 10^3/uL Absolute Immature Granulocyte (auto 0.06 10^3 u/L Absolute Eosinophils (auto) 0.0 10^3/uL Immature Granulocytes % 0.40 % Eosinophils % 0.0 % Basophils % 0.0 % Basophils # 0.0 10^3/uL Sodium Level 145 mmol/L Potassium Level 3.6 mmol/L Chloride Level 105.0 mmol/L Carbon Dioxide Level 35.6 mmol/L Anion Gap 8.0 Blood Urea Nitrogen 18 mg/dL Creatinine 0.59 mg/dL Estimated GFR () 139.6 Est GFR (CKD-EPI)(Non-Afr [place]) 115.3 BUN/Creatinine Ratio 30.0 Glucose Level 129 mg/dL Calcium Level 8.7 mg/dL Total Bilirubin 0.6 mg/dL Aspartate Amino Transf (AST/SGOT) 37 U/L Alanine Aminotransferase (ALT/SGPT) 54 U/L Alkaline Phosphatase 78 U/L Total Protein 6.5 g/dL Albumin 2.2 g/dL Globulin 4.3 Albumin/Globulin Ratio 0.511 Test 05/11/21 06:03 05/11/21 08:10 05/11/21 12:16 05/11/21 15:51 Segmented Neutrophils 97 % Lymphocytes 1 % Monocytes 2 % Platelet Estimate ADEQUATE Platelet Morphology NORMAL Blood Gas Sample Site LEFT RADIAL ARTERY Blood Gas pH 7.399 Blood Gas PCO2 54.2 mmHg Blood Gas PO2 53.9 mmHg Blood Gas HCO3 32.7 mmol/L Blood Gas Base Excess 6.4 mmol/L Lucas Test POSITIVE Arterial Blood Oxygen Saturation 85.4 % Deoxyhemoglobin 14.5 % Carboxyhemoglobin 0.3 % Methemoglobin 0.2 % Total Hemoglobin 13.5 % Total Oxygen Concentration 16.1 % Blood Gas Temperature 37 Oxygen Delivery Method (LAB) VENTILATOR Blood Gas Vent Mode AC VC+ Blood Gas Vent Rate 26 FiO2 100 % Blood Gas Tidal Volume 320 ML Blood Gas PEEP 14.0 CMH2O Total Carbon Dioxide 34.4 mmol/L Bedside Glucose 114 Urine Collection Type CATH Urine Color YELLOW Urine Appearance CLEAR Urine Bilirubin SMALL Urine Ictotest NEGATIVE Urine Ketones NEGATIVE Urine Specific [place] >=1.030 Urine pH 6.0 Urine Protein TRACE Urine Urobilinogen >=8.0 E.U./dL Urine Nitrate NEGATIVE Urine Leukocyte Esterase NEGATIVE Urine Glucose (Auto)(UA) NEGATIVE Urine Blood NEGATIVE Urine RBC 0-2 RBC/HPF Urine WBC 2-5 WBC/HPF Urine Squamous Epithelial Cells FEW #/HPF Urine Bacteria RARE Test 05/11/21 18:13 05/12/21 03:04 05/12/21 05:00 05/12/21 05:10 Bedside Glucose 119 Blood Gas Sample Site RT RADIAL ARTERY RT RADIAL ARTERY Blood Gas pH 7.232 7.370 Blood Gas PCO2 103.1 mmHg 71.8 mmHg Blood Gas PO2 64.8 mmHg 58.0 mmHg Blood Gas HCO3 42.4 mmol/L 40.6 mmol/L Blood Gas Base Excess 10.7 mmol/L 11.8 mmol/L Lucas Test POSITIVE POSITIVE Arterial Blood Oxygen Saturation 86.7 % 84.5 % Deoxyhemoglobin 13.1 % 15.5 % Carboxyhemoglobin 0.8 % 0.2 % Methemoglobin 0.5 % 0.1 % Total Hemoglobin 13.2 % 13.7 % Total Oxygen Concentration 15.9 % 16.2 % Oxygen Delivery Method (LAB) VENTILATOR VENTILATOR Blood Gas Vent Mode AC+ AC+ Blood Gas Vent Rate 26 32 FiO2 100 % 100 % Blood Gas Tidal Volume 320 ML 320 ML Blood Gas PEEP 14.0 CMH2O 14.0 CMH2O Total Carbon Dioxide 45.6 mmol/L 42.8 mmol/L Blood Gas Temperature 37.0 White Blood Count 13.9 10^3/uL Red Blood Count 4.46 10^6/uL Hemoglobin 12.9 g/dL Hematocrit 41.6 % Mean Corpuscular Volume 93.3 fL Mean Corpuscular Hemoglobin 28.9 pg Mean Corpuscular Hemoglobin Concent 31.0 g/dL Red Cell Distribution Width 12.2 % Platelet Count 197 10^3/uL Mean Platelet Volume 11.1 fL Neutrophils (%) (Auto) 94.4 % Lymphocytes (%) (Auto) 3.0 % Monocytes (%) (Auto) 1.8 % Neutrophils # (Auto) 13.1 10^3/uL Lymphocytes # (Auto) 0.41 10^3/uL1 Monocytes # (Auto) 0.3 10^3/uL Absolute Immature Granulocyte (auto 0.10 10^3 u/L Absolute Eosinophils (auto) 0.0 10^3/uL Immature Granulocytes % 0.70 % Eosinophils % 0.1 % Basophils % 0.0 % Basophils # 0.0 10^3/uL Prothrombin Time 10.8 SEC Prothrombin Time INR (Non-Therap) 1.0 Activated Partial Thromboplast Time 24.7 SEC Sodium Level 148 mmol/L Potassium Level 3.7 mmol/L Chloride Level 105.0 mmol/L Carbon Dioxide Level 39.0 mmol/L Anion Gap 7.7 Blood Urea Nitrogen 22 mg/dL Creatinine 0.51 mg/dL Estimated GFR () 165.1 Est GFR (CKD-EPI)(Non-Afr [place]) 136.5 BUN/Creatinine Ratio 43.0 Glucose Level 156 mg/dL Hemoglobin A1c 6.5 % Calcium Level 8.7 mg/dL Phosphorus Level 4.3 mg/dL Magnesium Level 2.3 mg/dL Total Bilirubin 0.5 mg/dL Aspartate Amino Transf (AST/SGOT) 38 U/L Alanine Aminotransferase (ALT/SGPT) 60 U/L Alkaline Phosphatase 83 U/L Total Protein 6.7 g/dL Albumin 2.0 g/dL Globulin 4.7 Albumin/Globulin Ratio 0.425 Triglycerides Level 261 mg/dL Test 05/12/21 06:15 05/12/21 12:23 05/12/21 18:25 05/13/21 00:02 Differential Total Cells Counted 100 #CELLS Segmented Neutrophils 95 % Lymphocytes 3 % Monocytes 2 % Platelet Estimate ADEQUATE Platelet Morphology NORMAL Anisocytosis 1+ Bedside Glucose 132 110 170 Test 05/13/21 04:24 05/13/21 04:25 05/13/21 12:22 05/13/21 18:13 White Blood Count 13.3 10^3/uL Red Blood Count 4.23 10^6/uL Hemoglobin 12.6 g/dL Hematocrit 39.6 % Mean Corpuscular Volume 93.6 fL Mean Corpuscular Hemoglobin 29.8 pg Mean Corpuscular Hemoglobin Concent 31.8 g/dL Red Cell Distribution Width 12.1 % Platelet Count 204 10^3/uL Mean Platelet Volume 10.4 fL Neutrophils (%) (Auto) 95.0 % Lymphocytes (%) (Auto) 3.2 % Monocytes (%) (Auto) 1.5 % Neutrophils # (Auto) 12.7 10^3/uL Lymphocytes # (Auto) 0.43 10^3/uL1 Monocytes # (Auto) 0.2 10^3/uL Absolute Immature Granulocyte (auto 0.06 10^3 u/L Absolute Eosinophils (auto) 0.0 10^3/uL Immature Granulocytes % 0.50 % Eosinophils % 0.2 % Basophils % 0.1 % Basophils # 0.0 10^3/uL Sodium Level 147 mmol/L Potassium Level 4.0 mmol/L Chloride Level 105.0 mmol/L Carbon Dioxide Level 38.6 mmol/L Anion Gap 7.4 Blood Urea Nitrogen 20 mg/dL Creatinine 0.49 mg/dL Estimated GFR () 172.9 Est GFR (CKD-EPI)(Non-Afr [place]) 142.9 BUN/Creatinine Ratio 40.0 Glucose Level 165 mg/dL Calcium Level 8.5 mg/dL Phosphorus Level 2.5 mg/dL Magnesium Level 2.3 mg/dL Total Bilirubin 0.5 mg/dL Aspartate Amino Transf (AST/SGOT) 25 U/L Alanine Aminotransferase (ALT/SGPT) 48 U/L Alkaline Phosphatase 70 U/L Total Protein 6.6 g/dL Albumin 2.1 g/dL Globulin 4.5 Albumin/Globulin Ratio 0.466 Blood Gas Sample Site ART LINE Blood Gas pH 7.389 Blood Gas PCO2 61.8 mmHg Blood Gas PO2 52.5 mmHg Blood Gas HCO3 36.5 mmol/L Blood Gas Base Excess 9.3 mmol/L Arterial Blood Oxygen Saturation 84.4 % Deoxyhemoglobin 15.4 % Carboxyhemoglobin 0.6 % Methemoglobin 0.5 % Total Hemoglobin 13.0 % Total Oxygen Concentration 15.3 % Blood Gas Temperature 37.0 Oxygen Delivery Method (LAB) VENTILATOR Blood Gas Vent Mode AC+ Blood Gas Vent Rate 32 FiO2 100 % Blood Gas Tidal Volume 320 ML Blood Gas PEEP 14.0 CMH2O Total Carbon Dioxide 38.4 mmol/L Triglycerides Level 271 mg/dL Bedside Glucose 147 128 Test 8/18/21 04:30 05/14/21 04:35 05/14/21 12:00 05/14/21 12:10 White Blood Count 16.1 10^3/uL Red Blood Count 4.69 10^6/uL Hemoglobin 13.8 g/dL Hematocrit 44.3 % Mean Corpuscular Volume 94.5 fL Mean Corpuscular Hemoglobin 29.4 pg Mean Corpuscular Hemoglobin Concent 31.2 g/dL Red Cell Distribution Width 12.2 % Platelet Count 253 10^3/uL Mean Platelet Volume 10.9 fL Sodium Level 146 mmol/L Potassium Level 4.1 mmol/L Chloride Level 104.0 mmol/L Carbon Dioxide Level 39.8 mmol/L Anion Gap 6.3 Blood Urea Nitrogen 24 mg/dL Creatinine 0.54 mg/dL Estimated GFR () 154.6 Est GFR (CKD-EPI)(Non-Afr [place]) 127.7 BUN/Creatinine Ratio 44.0 Glucose Level 131 mg/dL Calcium Level 8.8 mg/dL Total Bilirubin 0.5 mg/dL Aspartate Amino Transf (AST/SGOT) 28 U/L Alanine Aminotransferase (ALT/SGPT) 45 U/L Alkaline Phosphatase 67 U/L Total Protein 7.1 g/dL Albumin 2.4 g/dL Globulin 4.7 Albumin/Globulin Ratio 0.510 Triglycerides Level 314 mg/dL Blood Gas Sample Site ART LINE Blood Gas pH 7.280 Blood Gas PCO2 84.0 mmHg Blood Gas PO2 60.1 mmHg Blood Gas HCO3 38.6 mmol/L Blood Gas Base Excess 8.4 mmol/L Lucas Test N/A Arterial Blood Oxygen Saturation 88.1 % Deoxyhemoglobin 11.8 % Carboxyhemoglobin 0.4 % Methemoglobin 0.3 % Total Hemoglobin 14.0 % Total Oxygen Concentration 17.2 % Blood Gas Temperature 37 Oxygen Delivery Method (LAB) VENT Blood Gas Vent Mode AC/VC Blood Gas Vent Rate 35 FiO2 100 % Blood Gas Tidal Volume 320 ML Blood Gas PEEP 16 CMH2O Total Carbon Dioxide 41.2 mmol/L Bedside Glucose 151 Urine Collection Type UNKNOWN Urine Color YELLOW Urine Appearance CLEAR Urine Bilirubin SMALL Urine Ictotest POSITIVE Urine Ketones 15 mg/dL Urine Specific [place] >=1.030 Urine pH 5.5 Urine Protein NEGATIVE Urine Urobilinogen 2.0 E.U./dL Urine Nitrate NEGATIVE Urine Leukocyte Esterase NEGATIVE Urine Glucose (Auto)(UA) NEGATIVE Urine Blood NEGATIVE Nasal Adenovirus (PCR) NotDetected Nasal Coronavirus Type 229E (PCR) NotDetected Nasal Coronavirus Type HKU1 (PCR) NotDetected Nasal Coronavirus Type NL63 (PCR) NotDetected Nasal Coronavirus Type OC43 (PCR) NotDetected Nasal Enterovirus/Rhinovirus (PCR) NotDetected Nasal Influenza Type A (H1) (PCR) NotDetected Nasal Influenza Type A (H3) (PCR) NotDetected Nasal Swab Influenza Virus B (PCR) NotDetected Nasal Parainfluenza Type 1 (PCR) NotDetected Nasal Parainfluenza Type 2 (PCR) NotDetected Nasal Parainfluenza Type 3 (PCR) NotDetected Nasal Parainfluenza Type 4 (PCR) NotDetected Nasal Resp Syncytial Virus (PCR) NotDetected Nasal Bordetella pertussis DNA (PCR NotDetected Nasal Chlamydophila pneumoniae (PCR NotDetected Nasal Human Metapneumovirus (PCR) NotDetected Nasal Mycoplasma pneumoniae (PCR) NotDetected Nasal SARS-CoV-2 (PCR) DETECTED Influenza Type A (H1N1/09) (PCR) NotDetected Test 05/14/21 14:00 05/14/21 18:09 05/15/21 00:00 05/15/21 05:25 Blood Gas Sample Site ART LINE Blood Gas pH 7.386 Blood Gas PCO2 61.1 mmHg Blood Gas PO2 51.9 mmHg Blood Gas HCO3 35.8 mmol/L Blood Gas Base Excess 8.5 mmol/L Lucas Test N/A Arterial Blood Oxygen Saturation 86.5 % Deoxyhemoglobin 13.4 % Carboxyhemoglobin 0.5 % Methemoglobin 0.0 % Total Hemoglobin 14.1 % Total Oxygen Concentration 17.0 % Blood Gas Temperature 37.0 Oxygen Delivery Method (LAB) VENT Blood Gas Vent Mode AC Blood Gas Vent Rate 35 FiO2 100 % Blood Gas Tidal Volume 320 ML Blood Gas PEEP 16.0 CMH2O Total Carbon Dioxide 37.7 mmol/L Bedside Glucose 134 194 White Blood Count 12.1 10^3/uL Red Blood Count 4.22 10^6/uL Hemoglobin 12.3 g/dL Hematocrit 40.1 % Mean Corpuscular Volume 95.0 fL Mean Corpuscular Hemoglobin 29.1 pg Mean Corpuscular Hemoglobin Concent 30.7 g/dL Red Cell Distribution Width 12.8 % Platelet Count 219 10^3/uL Mean Platelet Volume 10.5 fL Neutrophils (%) (Auto) 79.6 % Lymphocytes (%) (Auto) 13.3 % Monocytes (%) (Auto) 4.4 % Neutrophils # (Auto) 9.6 10^3/uL Lymphocytes # (Auto) 1.61 10^3/uL1 Monocytes # (Auto) 0.5 10^3/uL Absolute Immature Granulocyte (auto 0.09 10^3 u/L Absolute Eosinophils (auto) 0.3 10^3/uL Immature Granulocytes % 0.70 % Eosinophils % 2.6 % Basophils % 0.1 % Basophils # 0.0 10^3/uL Sodium Level 144 mmol/L Potassium Level 3.7 mmol/L Chloride Level 105.0 mmol/L Carbon Dioxide Level 37.2 mmol/L Anion Gap 5.5 Blood Urea Nitrogen 31 mg/dL Creatinine 0.52 mg/dL Estimated GFR () 161.4 Est GFR (CKD-EPI)(Non-Afr [place]) 133.4 BUN/Creatinine Ratio 59.0 Glucose Level 165 mg/dL Calcium Level 8.4 mg/dL Total Bilirubin 0.5 mg/dL Aspartate Amino Transf (AST/SGOT) 28 U/L Alanine Aminotransferase (ALT/SGPT) 39 U/L Alkaline Phosphatase 53 U/L Total Protein 6.5 g/dL Albumin 2.2 g/dL Globulin 4.3 Albumin/Globulin Ratio 0.511 Procalcitonin 0.17 ng/mL Test 05/15/21 05:42 05/15/21 08:18 05/15/21 12:10 05/15/21 17:48 Blood Gas Sample Site ART LINE [place] Blood Gas pH 7.360 7.320 Blood Gas PCO2 73.1 mmHg 65.0 mmHg Blood Gas PO2 mmHg 59.7 mmHg Blood Gas HCO3 40.4 mmol/L 32.7 mmol/L Blood Gas Base Excess 11.9 mmol/L 4.8 mmol/L Lucas Test N/A POSITIVE Arterial Blood Oxygen Saturation 89.6 % 88.4 % Deoxyhemoglobin 10.3 % 11.5 % Carboxyhemoglobin 1.0 % 0.4 % Methemoglobin 0.3 % 0.2 % Total Hemoglobin 13.1 % 13.1 % Total Oxygen Concentration 16.1 % 16.2 % Oxygen Delivery Method (LAB) VENT FiO2 100 % 100 % Blood Gas PEEP 16.0 CMH2O 16 CMH2O Total Carbon Dioxide 42.6 mmol/L 34.7 mmol/L Blood Gas Vent Mode A/C Blood Gas Vent Rate 35 Blood Gas Tidal Volume 320 ML Bedside Glucose 212 159 Test 05/15/21 23:51 05/16/21 00:00 05/16/21 04:29 05/16/21 04:48 Vancomycin Level Trough 3.7 ug/mL Bedside Glucose 163 Blood Gas Sample Site ART LINE Blood Gas pH 7.325 Blood Gas PCO2 82.9 mmHg Blood Gas PO2 60.7 mmHg Blood Gas HCO3 42.2 mmol/L Blood Gas Base Excess 13.0 mmol/L Lucas Test N/A Arterial Blood Oxygen Saturation 89.7 % Deoxyhemoglobin 10.2 % Carboxyhemoglobin 0.9 % Methemoglobin 0.4 % Total Hemoglobin 11.7 % Total Oxygen Concentration 14.6 % Blood Gas Temperature 37.0 Oxygen Delivery Method (LAB) VENTILATOR Blood Gas Vent Mode AC+ Blood Gas Vent Rate 35 FiO2 100 % Blood Gas Tidal Volume 320 ML Blood Gas PEEP 16.0 CMH2O Total Carbon Dioxide 44.8 mmol/L White Blood Count 10.9 10^3/uL Red Blood Count 3.71 10^6/uL Hemoglobin 11.0 g/dL Hematocrit 35.3 % Mean Corpuscular Volume 95.1 fL Mean Corpuscular Hemoglobin 29.6 pg Mean Corpuscular Hemoglobin Concent 31.2 g/dL Red Cell Distribution Width 12.2 % Platelet Count 173 10^3/uL Mean Platelet Volume 10.8 fL Neutrophils (%) (Auto) 78.7 % Lymphocytes (%) (Auto) 13.2 % Monocytes (%) (Auto) 3.9 % Neutrophils # (Auto) 8.6 10^3/uL Lymphocytes # (Auto) 1.44 10^3/uL1 Monocytes # (Auto) 0.4 10^3/uL Absolute Immature Granulocyte (auto 0.06 10^3 u/L Absolute Eosinophils (auto) 0.5 10^3/uL Immature Granulocytes % 0.60 % Eosinophils % 4.1 % Basophils % 0.1 % Basophils # 0.0 10^3/uL Erythrocyte Sedimentation Rate 70 mm/hr D-Dimer 1.80 mg/L Sodium Level 145 mmol/L Potassium Level 3.2 mmol/L Chloride Level 106.0 mmol/L Carbon Dioxide Level 38.9 mmol/L Anion Gap 3.3 Blood Urea Nitrogen 21 mg/dL Creatinine 0.35 mg/dL Estimated GFR () 254.9 Est GFR (CKD-EPI)(Non-Afr [place]) 210.7 BUN/Creatinine Ratio 60.0 Glucose Level 172 mg/dL Calcium Level 8.1 mg/dL Total Bilirubin 0.3 mg/dL Aspartate Amino Transf (AST/SGOT) 38 U/L Alanine Aminotransferase (ALT/SGPT) 33 U/L Alkaline Phosphatase 41 U/L Lactate Dehydrogenase 260 U/L C-Reactive Protein 3.48 mg/dL Total Protein 5.8 g/dL Albumin 2.0 g/dL Globulin 3.8 Albumin/Globulin Ratio 0.526 HIV (1&2) Antibody Screen NON-REACTIVE Test 05/16/21 17:43 05/17/21 00:47 05/17/21 05:19 05/17/21 05:25 Bedside Glucose 191 170 Blood Gas Sample Site ART LINE Blood Gas pH 7.328 Blood Gas PCO2 75.8 mmHg Blood Gas PO2 77.7 mmHg Blood Gas HCO3 38.9 mmol/L Blood Gas Base Excess 10.4 mmol/L Lucas Test N/A Arterial Blood Oxygen Saturation 94.2 % Deoxyhemoglobin 5.8 % Carboxyhemoglobin 0.3 % Methemoglobin 0.4 % Total Hemoglobin 11.4 % Total Oxygen Concentration 15.1 % Blood Gas Temperature 37.0 Oxygen Delivery Method (LAB) VENTILATOR Blood Gas Vent Mode AC+ Blood Gas Vent Rate 35 FiO2 100 % Blood Gas Tidal Volume 320 ML Blood Gas PEEP 16.0 CMH2O Total Carbon Dioxide 41.2 mmol/L White Blood Count 12.4 10^3/uL Red Blood Count 3.56 10^6/uL Hemoglobin 10.5 g/dL Hematocrit 33.9 % Mean Corpuscular Volume 95.2 fL Mean Corpuscular Hemoglobin 29.5 pg Mean Corpuscular Hemoglobin Concent 31.0 g/dL Red Cell Distribution Width 12.3 % Platelet Count 191 10^3/uL Mean Platelet Volume 10.8 fL Neutrophils (%) (Auto) 74.8 % Lymphocytes (%) (Auto) 16.8 % Monocytes (%) (Auto) 3.8 % Neutrophils # (Auto) 9.3 10^3/uL Lymphocytes # (Auto) 2.08 10^3/uL1 Monocytes # (Auto) 0.5 10^3/uL Absolute Immature Granulocyte (auto 0.09 10^3 u/L Absolute Eosinophils (auto) 0.6 10^3/uL Immature Granulocytes % 0.70 % Eosinophils % 4.4 % Basophils % 0.2 % Basophils # 0.0 10^3/uL Sodium Level 146 mmol/L Potassium Level 2.9 mmol/L Chloride Level 105.0 mmol/L Carbon Dioxide Level 38.7 mmol/L Anion Gap 5.2 Blood Urea Nitrogen 13 mg/dL Creatinine 0.29 mg/dL Estimated GFR () 316.7 Est GFR (CKD-EPI)(Non-Afr [place]) 261.8 BUN/Creatinine Ratio 44.0 Glucose Level 198 mg/dL Calcium Level 8.1 mg/dL Magnesium Level 1.6 mg/dL Total Bilirubin 0.3 mg/dL Aspartate Amino Transf (AST/SGOT) 29 U/L Alanine Aminotransferase (ALT/SGPT) 30 U/L Alkaline Phosphatase 50 U/L Pro-B-Type Natriuretic Peptide 227 pg/mL Total Protein 5.6 g/dL Albumin 1.9 g/dL Globulin 3.7 Albumin/Globulin Ratio 0.513 Procalcitonin 0.13 ng/mL Test 05/17/21 08:45 Vancomycin Level Trough 9.6 ug/mL Current Medications Medications (Trade) Dose Ordered Sig/Davon Route PRN Reason Start Time Stop Time Status Last Admin Dose Admin Remdesivir 200 mg/ Sodium Chloride 140 ml @ 120.69 mls/ hr OT STAT IV 04/28/21 19:53 04/29/21 08:10 DC 04/28/21 19:53 Remdesivir 100 mg/ Sodium Chloride 120 ml @ 111.111 mls/hr Q24HRS IV 04/29/21 20:00 05/02/21 21:05 DC 05/02/21 20:45 Famotidine (Pepcid) 20 mg BID PO 04/28/21 21:00 05/07/21 09:31 DC 05/06/21 08:14 Sucralfate (Carafate) 1 gm ACHS PO 04/28/21 21:00 05/15/21 07:29 DC 05/12/21 21:00 Enoxaparin Sodium (Lovenox) 40 mg Q24HRS SQ 04/28/21 20:00 05/06/21 08:06 DC 05/05/21 21:00 Sucralfate (Carafate) 1 gm STK-MED ONCE PO 04/28/21 20:56 04/28/21 20:56 DC Lorazepam (Ativan) 1 mg Q4HR PRN IV ANXIETY 04/29/21 00:00 05/12/21 09:13 DC 05/06/21 18:45 Lorazepam (Ativan) 0.5 mg Q4HR PRN IV ANXIETY 04/29/21 00:00 05/06/21 09:00 DC Fentanyl Citrate (Sublimaze) 50 mcg STK-MED ONCE .ROUTE 04/29/21 11:37 04/29/21 11:38 DC Fentanyl Citrate (Sublimaze) 12.5 mcg OT ONCE IV 04/29/21 15:00 04/29/21 15:06 DC 04/29/21 13:35 Acetaminophen (Tylenol) 650 mg Q6HR PRN PO PAIN 1 - 3 04/30/21 18:00 05/02/21 18:00 DC 05/01/21 06:28 Dexmedetomidine HCl 200 mcg/ Sodium Chloride 50 ml @ 0 mls/hr IV 05/01/21 10:30 05/01/21 11:28 DC Sodium Chloride 250 ml @ ud STK-MED ONCE .ROUTE 05/01/21 20:40 05/01/21 20:40 DC Acetaminophen (Tylenol) 650 mg Q6HR PRN PO PAIN 1 - 3 05/02/21 20:30 05/08/21 18:01 DC 05/04/21 21:15 Bisacodyl (Dulcolax Ec Tablet) 5 mg STAT STAT PO 05/03/21 13:45 05/03/21 19:05 DC 05/03/21 14:36 Docusate Sodium (Colace) 100 mg BID PO 05/05/21 09:00 05/07/21 09:30 DC 05/06/21 08:14 Lorazepam (Ativan) 2 mg STK-MED ONCE .ROUTE 05/05/21 02:31 05/05/21 02:31 DC Lorazepam (Ativan) 2 mg STK-MED ONCE .ROUTE 05/05/21 03:46 05/05/21 03:47 DC Furosemide (Lasix) 20 mg OT ONCE IV 05/05/21 11:00 05/05/21 11:01 DC 05/05/21 11:20 Lorazepam (Ativan) 2 mg STK-MED ONCE .ROUTE 05/05/21 20:56 05/05/21 20:56 DC Enoxaparin Sodium (Lovenox) 100 mg Q12H SQ 05/06/21 08:30 06/05/21 08:29 05/17/21 08:13 Furosemide (Lasix) 20 mg STAT STAT IV 05/06/21 08:48 05/06/21 09:00 DC 05/06/21 08:48 Insulin Human Regular (Humulin R) 1 unit STK-MED ONCE .ROUTE 05/06/21 19:13 05/06/21 19:14 DC Propofol (Diprivan) 1,000 mg PRN PRN IV SEDATION 05/06/21 20:30 05/08/21 11:39 DC 05/08/21 04:00 Propofol 100 ml @ ud STK-MED ONCE IV 05/06/21 20:19 05/06/21 20:19 DC Vecuronium Bennet (Norcuron) 10 mg STK-MED ONCE .ROUTE 05/06/21 22:24 05/06/21 22:24 DC Vecuronium Bennet (Norcuron) 10 mg Q6HR PRN IV SHORTNESS OF BREATH 05/06/21 23:00 05/07/21 00:34 DC Vecuronium Bennet (Norcuron) 10 mg Q4 PRN IV SHORTNESS OF BREATH 05/07/21 00:30 05/12/21 00:00 DC 05/11/21 20:00 Vecuronium Bennet (Norcuron) 10 mg STK-MED ONCE .ROUTE 05/07/21 00:20 05/07/21 00:34 DC Propofol 100 ml @ ud STK-MED ONCE IV 05/07/21 01:53 05/07/21 01:53 DC Norepinephrine Bitartrate 8 mg/ Sodium Chloride 250 ml @ 0 mls/hr DAILY IV 05/07/21 09:00 05/10/21 16:46 DC 05/09/21 09:00 Fentanyl Citrate (Sublimaze) 100 mcg Q1HR IV 05/07/21 04:00 05/07/21 09:58 DC Piperacillin Sod/ Tazobactam Sod 4.5 gm/Sodium Chloride 100 ml @ 100 mls/hr Q6H IV 05/07/21 04:00 05/12/21 09:15 DC 05/11/21 22:00 Norepinephrine Bitartrate (Levophed) 4 mg STK-MED ONCE .ROUTE 05/07/21 04:38 05/07/21 04:38 DC Sodium Chloride 250 ml @ ud STK-MED ONCE .ROUTE 05/07/21 04:38 05/07/21 04:38 DC Fentanyl Citrate (Sublimaze) 100 mcg Q1HR PRN IV PAIN 7 - 10 05/07/21 06:30 05/12/21 09:13 DC 05/07/21 06:41 Fentanyl Citrate 2000 mcg/Sodium Chloride 200 ml @ 0 mls/hr IV 05/07/21 10:00 05/07/21 17:01 DC 05/07/21 10:30 Famotidine (Pepcid) 20 mg BID IV 05/07/21 09:30 06/06/21 09:29 05/17/21 08:13 Docusate Sodium (Colace) 100 mg BID NG 05/07/21 09:30 06/06/21 09:29 05/16/21 10:24 Propofol (Diprivan) 200 mg STK-MED ONCE IV 05/07/21 08:00 05/07/21 11:57 DC Succinylcholine Chloride (Quelicin) 8 mg STK-MED ONCE IV 05/07/21 08:00 05/07/21 11:57 DC Vecuronium Bennet (Norcuron) 10 mg STK-MED ONCE IV 05/07/21 08:00 05/07/21 11:57 DC Propofol 100 ml @ ud STK-MED ONCE IV 05/07/21 14:49 05/07/21 14:50 DC Fentanyl Citrate 5000 mcg/Sodium Chloride 500 ml @ 0 mls/hr IV 05/07/21 18:00 06/06/21 17:59 05/17/21 08:12 Propofol 100 ml @ ud STK-MED ONCE IV 05/07/21 19:08 05/07/21 19:08 DC Propofol 100 ml @ ud STK-MED ONCE IV 05/07/21 23:47 05/07/21 23:47 DC Propofol 100 ml @ ud STK-MED ONCE IV 05/08/21 03:45 05/08/21 03:46 DC Propofol 100 ml @ ud STK-MED ONCE IV 05/08/21 07:33 05/08/21 07:34 DC Propofol 100 ml @ ud STK-MED ONCE IV 05/08/21 11:27 05/08/21 11:27 DC Propofol 100 ml @ 27.6 mls/hr PRN PRN IV SEDATION 05/08/21 12:00 06/07/21 11:59 05/14/21 03:30 Acetaminophen (Tylenol) 650 mg Q6HR PRN RC FEVER 05/08/21 22:00 06/07/21 21:59 05/15/21 23:52 Midazolam HCl 50 mg/Sodium Chloride 50 ml @ 2 mls/hr ONCE IV 05/09/21 14:30 05/10/21 09:50 DC 05/09/21 14:30 Hydromorphone HCl (Dilaudid) 2 mg STK-MED ONCE .ROUTE 05/09/21 20:10 05/09/21 20:10 DC Hydromorphone HCl (Dilaudid) 0.5 mg Q4H PRN IV PAIN 7 - 10 05/09/21 20:00 06/08/21 19:59 05/11/21 21:00 Sodium Chloride 100 ml @ ud STK-MED ONCE IV 05/09/21 21:13 05/09/21 21:13 DC Midazolam HCl 100 mg/Sodium Chloride 100 ml @ 0 mls/hr ONCE IV 05/10/21 10:00 05/10/21 10:01 DC 05/10/21 10:55 Furosemide (Lasix) 20 mg BID IV 05/10/21 10:30 05/10/21 12:38 DC 05/10/21 10:55 Furosemide (Lasix) 20 mg STK-MED ONCE .ROUTE 05/10/21 10:48 05/10/21 10:49 DC Vecuronium Benn[place] (Norcuron) 10 mg Q2H PRN IV ventilator dyssynchrony 05/10/21 11:30 06/09/21 11:29 05/17/21 08:12 Furosemide (Lasix) 20 mg BID IV 05/10/21 12:38 06/09/21 10:29 05/17/21 08:13 Norepinephrine Bitartrate 8 mg/ Sodium Chloride 250 ml @ 0 mls/hr DAILY IV 05/11/21 09:00 05/11/21 08:54 DC Midazolam HCl 100 mg/Sodium Chloride 100 ml @ 0 mls/hr IV 05/10/21 17:00 05/11/21 08:57 DC 05/11/21 01:39 Albuterol Sulfate (Ventolin Hfa) 200 inh STK-MED ONCE IH 05/10/21 22:44 05/10/21 22:45 DC Albuterol Sulfate (Ventolin Hfa) 2 inh OT ONCE IH 05/10/21 23:00 05/10/21 23:01 DC 05/10/21 23:15 Norepinephrine Bitartrate 8 mg/ Sodium Chloride 258 ml @ 0 mls/hr IV 05/11/21 08:00 06/10/21 07:59 05/15/21 10:17 Midazolam HCl 100 mg/Sodium Chloride 100 ml @ 0 mls/hr TITRATE IV 05/11/21 09:00 05/16/21 16:09 DC 05/16/21 12:21 Sodium Chloride 1,000 ml @ ud STK-MED ONCE .ROUTE 05/12/21 19:14 05/12/21 19:14 DC Albuterol Sulfate (Ventolin) 1.25 mg RTQ6 IH 05/14/21 03:00 05/14/21 00:49 DC Albuterol Sulfate (Ventolin) 1.25 mg RTQ6 PRN IH WHEEZING 05/14/21 03:00 06/13/21 02:59 Vancomycin HCl 1.5 gm/Sodium Chloride 300 ml @ 175 mls/hr Q12H IV 05/14/21 12:00 05/16/21 09:01 DC 05/16/21 00:00 Cefepime HCl 2 gm/ Sodium Chloride 100 ml @ 100 mls/hr BID IV 05/14/21 10:30 05/24/21 10:29 05/17/21 08:13 Acetaminophen (Ofirmev) 1,000 mg Q8H IV 05/14/21 14:30 05/14/21 16:57 DC Acetaminophen (Ofirmev) 1,000 mg Q8H PRN IV FEVER 05/14/21 17:00 06/13/21 14:29 05/16/21 16:50 Fat Emulsion Intravenous 250 ml @ 15 mls/hr Q2D IV 05/14/21 17:30 06/13/21 17:29 05/16/21 16:50 Ketorolac Tromethamine (Toradol) 30 mg OT PRN IV PAIN 4 - 6 05/14/21 21:30 05/19/21 21:29 05/14/21 21:41 Sterile Water (Water) 1,000 ml STK-MED ONCE .ROUTE 05/14/21 22:50 05/14/21 22:50 DC Sodium Chloride 100 ml @ ud STK-MED ONCE IV 05/15/21 04:22 05/15/21 04:22 DC Vancomycin HCl 1.5 gm/Sodium Chloride 300 ml @ 175 mls/hr Q8H IV 05/16/21 17:00 06/15/21 16:59 05/17/21 08:13 Vancomycin HCl 2 gm/Sodium Chloride 400 ml @ 160 mls/hr OT IV 05/16/21 09:30 06/15/21 09:29 05/16/21 10:24 Potassium Chloride 50 ml @ 50 mls/hr Q2 IV 05/16/21 16:00 05/16/21 20:59 DC 05/16/21 20:00 Midazolam HCl 200 mg/Sodium Chloride 200 ml @ 0 mls/hr TITRATE IV 05/16/21 16:30 06/15/21 16:29 Sodium Chloride 500 ml @ ud STK-MED ONCE IV 05/16/21 16:46 05/16/21 16:46 DC Vancomycin HCl 1 ml @ ud STK-MED ONCE .ROUTE 05/17/21 01:55 05/17/21 01:55 DC Sodium Chloride 250 ml @ ud STK-MED ONCE .ROUTE 05/17/21 01:55 05/17/21 01:56 DC LABS LAB RESULTS Laboratory Tests Test 04/29/21 04:35 04/30/21 04:28 05/01/21 04:32 05/01/21 11:20 White Blood Count 6.2 10^3/uL 6.4 10^3/uL 10.2 10^3/uL Red Blood Count 4.64 10^6/uL 4.49 10^6/uL 4.50 10^6/uL Hemoglobin 13.5 g/dL 13.3 g/dL 13.3 g/dL Hematocrit 41.2 % 39.3 % 39.6 % Mean Corpuscular Volume 88.8 fL 87.5 fL 88.0 fL Mean Corpuscular Hemoglobin 29.1 pg 29.6 pg 29.6 pg Mean Corpuscular Hemoglobin Concent 32.8 g/dL 33.8 g/dL 33.6 g/dL Red Cell Distribution Width 12.5 % 12.1 % 12.1 % Platelet Count 162 10^3/uL 195 10^3/uL 234 10^3/uL Mean Platelet Volume 10.9 fL 10.8 fL 10.4 fL Neutrophils (%) (Auto) 72.3 % 70.8 % Lymphocytes (%) (Auto) 19.0 % 20.6 % Monocytes (%) (Auto) 8.4 % 8.4 % Neutrophils # (Auto) 4.5 10^3/uL 4.5 10^3/uL Lymphocytes # (Auto) 1.17 10^3/uL1 1.32 10^3/uL1 Monocytes # (Auto) 0.5 10^3/uL 0.5 10^3/uL Absolute Immature Granulocyte (auto 0.02 10^3 u/L 0.04 10^3 u/L Absolute Eosinophils (auto) 0.0 10^3/uL 0.0 10^3/uL Immature Granulocytes % 0.30 % 0.60 % Eosinophils % 0.0 % 0.0 % Basophils % 0.0 % 0.2 % Basophils # 0.0 10^3/uL 0.0 10^3/uL Sodium Level 141 mmol/L 142 mmol/L 139 mmol/L Potassium Level 4.0 mmol/L 3.9 mmol/L 3.9 mmol/L Chloride Level 106.0 mmol/L 106.0 mmol/L 105.0 mmol/L Carbon Dioxide Level 25.2 mmol/L 26.2 mmol/L 26.8 mmol/L Anion Gap 13.8 13.7 11.1 Blood Urea Nitrogen 12 mg/dL 17 mg/dL 12 mg/dL Creatinine 0.65 mg/dL 0.54 mg/dL 0.56 mg/dL Estimated GFR () 124.8 154.6 148.2 Est GFR (CKD-EPI)(Non-Afr [place]) 103.1 127.7 122.5 BUN/Creatinine Ratio 18.0 31.0 21.0 Glucose Level 98 mg/dL 92 mg/dL 87 mg/dL Calcium Level 8.6 mg/dL 8.4 mg/dL 8.8 mg/dL Total Bilirubin 0.5 mg/dL 0.5 mg/dL 0.5 mg/dL Aspartate Amino Transf (AST/SGOT) 42 U/L 40 U/L 36 U/L Alanine Aminotransferase (ALT/SGPT) 47 U/L 42 U/L 39 U/L Alkaline Phosphatase 47 U/L 43 U/L 43 U/L Total Protein 6.6 g/dL 6.6 g/dL 6.7 g/dL Albumin 2.6 g/dL 2.5 g/dL 2.5 g/dL Globulin 4.0 4.1 4.2 Albumin/Globulin Ratio 0.650 0.609 0.595 Serum HCG, Qualitative NEGATIVE Blood Gas Sample Site RT RADIAL ARTERY Blood Gas pH 7.459 Blood Gas PCO2 31.9 mmHg Blood Gas PO2 86.7 mmHg Blood Gas HCO3 22.1 mmol/L Blood Gas Base Excess -0.8 mmol/L Lucas Test POSITIVE Arterial Blood Oxygen Saturation 96.2 % Deoxyhemoglobin 3.8 % Carboxyhemoglobin 0.1 % Methemoglobin 0.1 % Total Hemoglobin 14.8 % Total Oxygen Concentration 20.0 % Blood Gas Temperature 37.0 Oxygen Delivery Method (LAB) BIPAP Blood Gas Vent Mode ST FiO2 80 % Total Carbon Dioxide 23.1 mmol/L Test 05/02/21 06:37 05/02/21 08:25 05/03/21 05:20 05/03/21 07:55 White Blood Count 7.6 10^3/uL 12.0 10^3/uL Red Blood Count 4.62 10^6/uL 4.71 10^6/uL Hemoglobin 13.6 g/dL 13.6 g/dL Hematocrit 40.6 % 41.1 % Mean Corpuscular Volume 87.9 fL 87.3 fL Mean Corpuscular Hemoglobin 29.4 pg 28.9 pg Mean Corpuscular Hemoglobin Concent 33.5 g/dL 33.1 g/dL Red Cell Distribution Width 12.0 % 11.9 % Platelet Count 268 10^3/uL 338 10^3/uL Mean Platelet Volume 10.5 fL 10.2 fL Neutrophils (%) (Auto) 82.9 % 83.2 % Lymphocytes (%) (Auto) 11.7 % 10.3 % Monocytes (%) (Auto) 5.4 % 5.1 % Neutrophils # (Auto) 6.3 10^3/uL 10.0 10^3/uL Lymphocytes # (Auto) 0.89 10^3/uL1 1.24 10^3/uL1 Monocytes # (Auto) 0.4 10^3/uL 0.6 10^3/uL Absolute Immature Granulocyte (auto 0.12 10^3 u/L 0.14 10^3 u/L Absolute Eosinophils (auto) 0.0 10^3/uL 0.0 10^3/uL Immature Granulocytes % 1.60 % 1.20 % Eosinophils % 0.0 % 0.1 % Basophils % 0.0 % 0.1 % Basophils # 0.0 10^3/uL 0.0 10^3/uL Sodium Level 140 mmol/L 140 mmol/L Potassium Level 4.7 mmol/L 4.3 mmol/L Chloride Level 104.0 mmol/L 103.0 mmol/L Carbon Dioxide Level 27.6 mmol/L 28.1 mmol/L Anion Gap 13.1 13.2 Blood Urea Nitrogen 14 mg/dL 18 mg/dL Creatinine 0.62 mg/dL 0.65 mg/dL Estimated GFR () 131.8 124.8 Est GFR (CKD-EPI)(Non-Afr [place]) 108.9 103.1 BUN/Creatinine Ratio 22.0 27.0 Glucose Level 121 mg/dL 107 mg/dL Calcium Level 8.8 mg/dL 8.9 mg/dL Total Bilirubin 0.4 mg/dL 0.6 mg/dL Aspartate Amino Transf (AST/SGOT) 26 U/L 26 U/L Alanine Aminotransferase (ALT/SGPT) 37 U/L 31 U/L Alkaline Phosphatase 42 U/L 41 U/L Total Protein 6.7 g/dL 6.8 g/dL Albumin 2.5 g/dL 2.6 g/dL Globulin 4.2 4.2 Albumin/Globulin Ratio 0.595 0.619 Blood Gas Sample Site RT RADIAL ARTERY LEFT RADIAL ARTERY Blood Gas pH 7.405 7.416 Blood Gas PCO2 41.1 mmHg 37.1 mmHg Blood Gas PO2 82.5 mmHg 149.3 mmHg Blood Gas HCO3 25.2 mmol/L 23.3 mmol/L Blood Gas Base Excess 0.4 mmol/L -0.8 mmol/L Lucas Test POSITIVE POSITIVE Arterial Blood Oxygen Saturation 95.5 % 98.7 % Deoxyhemoglobin 4.5 % 1.3 % Carboxyhemoglobin 0.6 % 0.4 % Methemoglobin 0.3 % 0.5 % Total Hemoglobin 14.6 % 14.5 % Total Oxygen Concentration 19.5 % 20.2 % Blood Gas Temperature 37 37.00 Oxygen Delivery Method (LAB) BIPAP15/7 BP 15/7 FiO2 99 % 100 % Total Carbon Dioxide 26.4 mmol/L 24.4 mmol/L Blood Gas Vent Mode S/T Test 05/03/21 10:10 05/04/21 10:08 05/05/21 05:08 05/06/21 04:30 D-Dimer 1.21 mg/L 5.32 mg/L Ferritin 697 ng/mL 724 ng/mL Lactate Dehydrogenase 329 U/L White Blood Count 17.0 10^3/uL 14.0 10^3/uL 15.9 10^3/uL Red Blood Count 4.46 10^6/uL 4.70 10^6/uL 4.43 10^6/uL Hemoglobin 12.9 g/dL 13.7 g/dL 13.2 g/dL Hematocrit 38.9 % 41.0 % 39.1 % Mean Corpuscular Volume 87.2 fL 87.2 fL 88.3 fL Mean Corpuscular Hemoglobin 28.9 pg 29.1 pg 29.8 pg Mean Corpuscular Hemoglobin Concent 33.2 g/dL 33.4 g/dL 33.8 g/dL Red Cell Distribution Width 11.8 % 11.9 % 12.0 % Platelet Count 334 10^3/uL 309 10^3/uL 290 10^3/uL Mean Platelet Volume 10.0 fL 9.8 fL 9.8 fL Neutrophils (%) (Auto) 90.6 % 88.5 % 87.7 % Lymphocytes (%) (Auto) 4.4 % 7.5 % 8.3 % Monocytes (%) (Auto) 3.9 % 3.3 % 3.5 % Neutrophils # (Auto) 15.4 10^3/uL 12.3 10^3/uL 13.9 10^3/uL Lymphocytes # (Auto) 0.75 10^3/uL1 1.05 10^3/uL1 1.32 10^3/uL1 Monocytes # (Auto) 0.7 10^3/uL 0.5 10^3/uL 0.6 10^3/uL Absolute Immature Granulocyte (auto 0.16 10^3 u/L 0.19 10^3 u/L 0.16 10^3 u/L Absolute Eosinophils (auto) 0.0 10^3/uL 0.1 10^3/uL 0.1 10^3/uL Immature Granulocytes % 0.90 % 1.40 % 1.00 % Eosinophils % 0.1 % 0.6 % 0.4 % Basophils % 0.1 % 0.1 % 0.1 % Basophils # 0.0 10^3/uL 0.0 10^3/uL 0.0 10^3/uL Sodium Level 135 mmol/L 137 mmol/L 138 mmol/L Potassium Level 3.9 mmol/L 3.6 mmol/L 3.8 mmol/L Chloride Level 102.0 mmol/L 102.0 mmol/L 103.0 mmol/L Carbon Dioxide Level 25.7 mmol/L 26.8 mmol/L 27.1 mmol/L Anion Gap 11.2 11.8 11.7 Blood Urea Nitrogen 20 mg/dL 13 mg/dL 14 mg/dL Creatinine 0.75 mg/dL 0.62 mg/dL 0.66 mg/dL Estimated GFR () 105.8 131.8 122.6 Est GFR (CKD-EPI)(Non-Afr [place]) 87.4 108.9 101.3 BUN/Creatinine Ratio 26.0 20.0 21.0 Glucose Level 135 mg/dL 86 mg/dL 96 mg/dL Calcium Level 8.8 mg/dL 8.8 mg/dL 8.8 mg/dL Total Bilirubin 0.8 mg/dL 0.8 mg/dL 0.9 mg/dL Aspartate Amino Transf (AST/SGOT) 33 U/L 35 U/L 30 U/L Alanine Aminotransferase (ALT/SGPT) 34 U/L 34 U/L 39 U/L Alkaline Phosphatase 43 U/L 41 U/L 49 U/L Total Protein 6.8 g/dL 6.7 g/dL 6.9 g/dL Albumin 2.5 g/dL 2.4 g/dL 2.4 g/dL Globulin 4.3 4.3 4.5 Albumin/Globulin Ratio 0.581 0.558 0.533 Test 05/06/21 07:27 05/06/21 19:40 05/06/21 21:55 05/07/21 04:13 Blood Gas Sample Site RT BRACIAL ARTERY LEFT RADIAL ARTERY RT RADIAL ARTERY Blood Gas pH 7.452 7.478 7.473 Blood Gas PCO2 35.8 mmHg 40.1 mmHg 36.9 mmHg Blood Gas PO2 45.9 mmHg 54.5 mmHg 38.1 mmHg Blood Gas HCO3 24.4 mmol/L 29.1 mmol/L 26.4 mmol/L Blood Gas Base Excess 0.8 mmol/L 5.2 mmol/L 2.9 mmol/L Lucas Test N/A POSITIVE POSITIVE Arterial Blood Oxygen Saturation 82.3 % 87.3 % 71.2 % Deoxyhemoglobin 17.6 % 12.5 % 28.5 % Carboxyhemoglobin 0.2 % 0.9 % 0.7 % Methemoglobin 0.2 % 0.4 % 0.4 % Total Hemoglobin 13.5 % 13.5 % 13.2 % Total Oxygen Concentration 15.5 % 16.3 % 13.0 % Oxygen Delivery Method (LAB) CF 50LPM BIPAP 15/7 VENT FiO2 100 % 100 % 100 % Total Carbon Dioxide 25.5 mmol/L 30.3 mmol/L 27.6 mmol/L Blood Gas Temperature 37 37 Blood Gas Vent Mode AC Blood Gas Vent Rate 14 Blood Gas Tidal Volume 400 ML Blood Gas PEEP 12 CMH2O White Blood Count 16.3 10^3/uL Red Blood Count 4.35 10^6/uL Hemoglobin 12.8 g/dL Hematocrit 38.4 % Mean Corpuscular Volume 88.3 fL Mean Corpuscular Hemoglobin 29.4 pg Mean Corpuscular Hemoglobin Concent 33.3 g/dL Red Cell Distribution Width 12.0 % Platelet Count 268 10^3/uL Mean Platelet Volume 9.9 fL Neutrophils (%) (Auto) 89.4 % Lymphocytes (%) (Auto) 6.1 % Monocytes (%) (Auto) 4.3 % Neutrophils # (Auto) 14.6 10^3/uL Lymphocytes # (Auto) 0.99 10^3/uL1 Monocytes # (Auto) 0.7 10^3/uL Absolute Immature Granulocyte (auto 0.14 10^3 u/L Absolute Eosinophils (auto) 0.0 10^3/uL Immature Granulocytes % 0.90 % Eosinophils % 0.1 % Basophils % 0.1 % Basophils # 0.0 10^3/uL Sodium Level 141 mmol/L Potassium Level 4.3 mmol/L Chloride Level 105.0 mmol/L Carbon Dioxide Level 29.2 mmol/L Anion Gap 11.1 Blood Urea Nitrogen 15 mg/dL Creatinine 0.68 mg/dL Estimated GFR () 118.5 Est GFR (CKD-EPI)(Non-Afr [place]) 97.9 BUN/Creatinine Ratio 22.0 Glucose Level 108 mg/dL Calcium Level 9.0 mg/dL Total Bilirubin 0.7 mg/dL Aspartate Amino Transf (AST/SGOT) 27 U/L Alanine Aminotransferase (ALT/SGPT) 39 U/L Alkaline Phosphatase 50 U/L Total Protein 6.8 g/dL Albumin 2.2 g/dL Globulin 4.6 Albumin/Globulin Ratio 0.478 Procalcitonin 0.08 ng/mL Test 05/07/21 05:02 05/07/21 06:35 05/07/21 18:09 05/08/21 00:56 Differential Total Cells Counted 100 #CELLS Segmented Neutrophils 85 % Lymphocytes 12 % Monocytes 3 % Platelet Estimate ADEQUATE Platelet Morphology NORMAL Blood Gas Sample Site RT RADIAL ARTERY Blood Gas pH 7.338 Blood Gas PCO2 48.1 mmHg Blood Gas PO2 51.4 mmHg Blood Gas HCO3 25.3 mmol/L Blood Gas Base Excess -1.0 mmol/L Lucas Test POSITIVE Arterial Blood Oxygen Saturation 82.7 % Deoxyhemoglobin 17.2 % Carboxyhemoglobin 0.4 % Methemoglobin 0.1 % Total Hemoglobin 14.5 % Total Oxygen Concentration 16.7 % Blood Gas Temperature 37 Oxygen Delivery Method (LAB) VENT Blood Gas Vent Mode AC Blood Gas Vent Rate 14 FiO2 100 % Blood Gas Tidal Volume 400 ML Blood Gas PEEP 12 CMH2O Total Carbon Dioxide 26.7 mmol/L Bedside Glucose 157 147 Test 05/08/21 04:28 05/08/21 05:50 05/08/21 17:50 05/08/21 23:51 White Blood Count 17.7 10^3/uL Red Blood Count 4.52 10^6/uL Hemoglobin 13.2 g/dL Hematocrit 41.6 % Mean Corpuscular Volume 92.0 fL Mean Corpuscular Hemoglobin 29.2 pg Mean Corpuscular Hemoglobin Concent 31.7 g/dL Red Cell Distribution Width 12.5 % Platelet Count 291 10^3/uL Mean Platelet Volume 10.2 fL Neutrophils (%) (Auto) 93.7 % Lymphocytes (%) (Auto) 4.5 % Monocytes (%) (Auto) 1.8 % Neutrophils # (Auto) 16.6 10^3/uL Lymphocytes # (Auto) 0.79 10^3/uL1 Monocytes # (Auto) 0.3 10^3/uL Absolute Immature Granulocyte (auto 0.11 10^3 u/L Absolute Eosinophils (auto) 0.0 10^3/uL Immature Granulocytes % 0.60 % Eosinophils % 0.0 % Basophils % 0.0 % Basophils # 0.0 10^3/uL Sodium Level 147 mmol/L Potassium Level 4.1 mmol/L Chloride Level 109.0 mmol/L Carbon Dioxide Level 30.6 mmol/L Anion Gap 11.5 Blood Urea Nitrogen 18 mg/dL Creatinine 0.65 mg/dL Estimated GFR () 124.8 Est GFR (CKD-EPI)(Non-Afr [place]) 103.1 BUN/Creatinine Ratio 27.0 Glucose Level 145 mg/dL Calcium Level 9.2 mg/dL Total Bilirubin 0.6 mg/dL Aspartate Amino Transf (AST/SGOT) 41 U/L Alanine Aminotransferase (ALT/SGPT) 68 U/L Alkaline Phosphatase 67 U/L Total Protein 7.1 g/dL Albumin 2.3 g/dL Globulin 4.8 Albumin/Globulin Ratio 0.479 Blood Gas Sample Site LEFT RADIAL ARTERY Blood Gas pH 7.365 Blood Gas PCO2 53.4 mmHg Blood Gas PO2 48.1 mmHg Blood Gas HCO3 29.8 mmol/L Blood Gas Base Excess 3.1 mmol/L Lucas Test POSITIVE Arterial Blood Oxygen Saturation 79.8 % Deoxyhemoglobin 20.0 % Carboxyhemoglobin 0.6 % Methemoglobin 0.4 % Total Hemoglobin 15.4 % Total Oxygen Concentration 17.1 % FiO2 100 % Blood Gas PEEP 12.0 CMH2O Total Carbon Dioxide 31.5 mmol/L Bedside Glucose 142 131 Test 05/09/21 04:20 05/09/21 07:35 05/09/21 18:10 05/09/21 20:10 White Blood Count 22.5 10^3/uL Red Blood Count 4.39 10^6/uL Hemoglobin 13.0 g/dL Hematocrit 40.7 % Mean Corpuscular Volume 92.7 fL Mean Corpuscular Hemoglobin 29.6 pg Mean Corpuscular Hemoglobin Concent 31.9 g/dL Red Cell Distribution Width 12.6 % Platelet Count 330 10^3/uL Mean Platelet Volume 10.1 fL Neutrophils (%) (Auto) 92.6 % Lymphocytes (%) (Auto) 4.1 % Monocytes (%) (Auto) 3.3 % Neutrophils # (Auto) 20.8 10^3/uL Lymphocytes # (Auto) 0.92 10^3/uL1 Monocytes # (Auto) 0.8 10^3/uL Absolute Immature Granulocyte (auto 0.10 10^3 u/L Absolute Eosinophils (auto) 0.0 10^3/uL Immature Granulocytes % 0.40 % Eosinophils % 0.0 % Basophils % 0.0 % Basophils # 0.0 10^3/uL Sodium Level 148 mmol/L Potassium Level 4.2 mmol/L Chloride Level 109.0 mmol/L Carbon Dioxide Level 30.9 mmol/L Anion Gap 12.3 Blood Urea Nitrogen 18 mg/dL Creatinine 0.65 mg/dL Estimated GFR () 124.8 Est GFR (CKD-EPI)(Non-Afr [place]) 103.1 BUN/Creatinine Ratio 27.0 Glucose Level 142 mg/dL Calcium Level 8.6 mg/dL Total Bilirubin 0.8 mg/dL Aspartate Amino Transf (AST/SGOT) 38 U/L Alanine Aminotransferase (ALT/SGPT) 55 U/L Alkaline Phosphatase 70 U/L Total Protein 6.9 g/dL Albumin 2.1 g/dL Globulin 4.8 Albumin/Globulin Ratio 0.437 Procalcitonin 0.06 ng/mL Blood Gas Sample Site RT BRACIAL ARTERY RT BRACIAL ARTERY Blood Gas pH 7.387 7.426 Blood Gas PCO2 48.3 mmHg 46.7 mmHg Blood Gas PO2 57.0 mmHg 49.5 mmHg Blood Gas HCO3 28.4 mmol/L 30.0 mmol/L Blood Gas Base Excess 2.6 mmol/L 4.8 mmol/L Lucas Test POSITIVE POSITIVE Arterial Blood Oxygen Saturation 88.1 % 83.6 % Deoxyhemoglobin 11.9 % 16.2 % Carboxyhemoglobin 0.1 % 0.9 % Methemoglobin 0.1 % 0.5 % Total Hemoglobin 13.6 % 13.9 % Total Oxygen Concentration 16.8 % 16.1 % Blood Gas Temperature 37 37 Oxygen Delivery Method (LAB) VENT VENT Blood Gas Vent Mode AC AC Blood Gas Vent Rate 14 22 FiO2 100 % 100 % Blood Gas Tidal Volume 400 ML 320 ML Blood Gas PEEP 12 CMH2O 12 CMH2O Total Carbon Dioxide 29.9 mmol/L 31.5 mmol/L Bedside Glucose 118 Test 05/09/21 23:58 05/10/21 05:00 05/10/21 05:20 05/10/21 05:44 Bedside Glucose 113 Blood Gas Sample Site LEFT RADIAL ARTERY Blood Gas pH 7.365 Blood Gas PCO2 56.9 mmHg Blood Gas PO2 54.0 mmHg Blood Gas HCO3 31.8 mmol/L Blood Gas Base Excess 5.0 mmol/L Lucas Test POSITIVE Arterial Blood Oxygen Saturation 84.6 % Deoxyhemoglobin 15.2 % Carboxyhemoglobin 0.7 % Methemoglobin 0.3 % Total Hemoglobin 12.6 % Total Oxygen Concentration 14.8 % Blood Gas Temperature 37.0 Oxygen Delivery Method (LAB) VENTILATOR Blood Gas Vent Mode AC+ Blood Gas Vent Rate 28 FiO2 100 % Blood Gas Tidal Volume 320 ML Blood Gas PEEP 14.0 CMH2O Total Carbon Dioxide 33.5 mmol/L White Blood Count 13.9 10^3/uL Red Blood Count 4.20 10^6/uL Hemoglobin 12.4 g/dL Hematocrit 39.1 % Mean Corpuscular Volume 93.1 fL Mean Corpuscular Hemoglobin 29.5 pg Mean Corpuscular Hemoglobin Concent 31.7 g/dL Red Cell Distribution Width 12.4 % Platelet Count 201 10^3/uL Mean Platelet Volume 10.3 fL Neutrophils (%) (Auto) 93.0 % Lymphocytes (%) (Auto) 4.7 % Monocytes (%) (Auto) 2.3 % Neutrophils # (Auto) 13.0 10^3/uL Lymphocytes # (Auto) 0.65 10^3/uL1 Monocytes # (Auto) 0.3 10^3/uL Absolute Immature Granulocyte (auto 0.05 10^3 u/L Absolute Eosinophils (auto) 0.0 10^3/uL Immature Granulocytes % 0.40 % Eosinophils % 0.0 % Basophils % 0.0 % Basophils # 0.0 10^3/uL Sodium Level 143 mmol/L Potassium Level 4.2 mmol/L Chloride Level 107.0 mmol/L Carbon Dioxide Level 31.5 mmol/L Anion Gap 8.7 Blood Urea Nitrogen 14 mg/dL Creatinine 0.51 mg/dL Estimated GFR () 165.1 Est GFR (CKD-EPI)(Non-Afr [place]) 136.5 BUN/Creatinine Ratio 27.0 Glucose Level 146 mg/dL Calcium Level 8.7 mg/dL Total Bilirubin 0.6 mg/dL Aspartate Amino Transf (AST/SGOT) 35 U/L Alanine Aminotransferase (ALT/SGPT) 56 U/L Alkaline Phosphatase 61 U/L Total Protein 6.3 g/dL Albumin 2.1 g/dL Globulin 4.2 Albumin/Globulin Ratio 0.500 Triglycerides Level 207 mg/dL Segmented Neutrophils 98 % Lymphocytes 1 % Monocytes 1 % Platelet Estimate ADEQUATE Platelet Morphology NORMAL Test 05/10/21 12:40 05/10/21 17:57 05/11/21 00:01 05/11/21 05:20 Bedside Glucose 136 135 120 White Blood Count 15.3 10^3/uL Red Blood Count 4.32 10^6/uL Hemoglobin 12.8 g/dL Hematocrit 39.8 % Mean Corpuscular Volume 92.1 fL Mean Corpuscular Hemoglobin 29.6 pg Mean Corpuscular Hemoglobin Concent 32.2 g/dL Red Cell Distribution Width 12.2 % Platelet Count 222 10^3/uL Mean Platelet Volume 10.7 fL Neutrophils (%) (Auto) 93.0 % Lymphocytes (%) (Auto) 4.0 % Monocytes (%) (Auto) 3.0 % Neutrophils # (Auto) 14.3 10^3/uL Lymphocytes # (Auto) 0.61 10^3/uL1 Monocytes # (Auto) 0.5 10^3/uL Absolute Immature Granulocyte (auto 0.06 10^3 u/L Absolute Eosinophils (auto) 0.0 10^3/uL Immature Granulocytes % 0.40 % Eosinophils % 0.0 % Basophils % 0.0 % Basophils # 0.0 10^3/uL Sodium Level 145 mmol/L Potassium Level 3.6 mmol/L Chloride Level 105.0 mmol/L Carbon Dioxide Level 35.6 mmol/L Anion Gap 8.0 Blood Urea Nitrogen 18 mg/dL Creatinine 0.59 mg/dL Estimated GFR () 139.6 Est GFR (CKD-EPI)(Non-Afr [place]) 115.3 BUN/Creatinine Ratio 30.0 Glucose Level 129 mg/dL Calcium Level 8.7 mg/dL Total Bilirubin 0.6 mg/dL Aspartate Amino Transf (AST/SGOT) 37 U/L Alanine Aminotransferase (ALT/SGPT) 54 U/L Alkaline Phosphatase 78 U/L Total Protein 6.5 g/dL Albumin 2.2 g/dL Globulin 4.3 Albumin/Globulin Ratio 0.511 Test 05/11/21 06:03 05/11/21 08:10 05/11/21 12:16 05/11/21 15:51 Segmented Neutrophils 97 % Lymphocytes 1 % Monocytes 2 % Platelet Estimate ADEQUATE Platelet Morphology NORMAL Blood Gas Sample Site LEFT RADIAL ARTERY Blood Gas pH 7.399 Blood Gas PCO2 54.2 mmHg Blood Gas PO2 53.9 mmHg Blood Gas HCO3 32.7 mmol/L Blood Gas Base Excess 6.4 mmol/L Lucas Test POSITIVE Arterial Blood Oxygen Saturation 85.4 % Deoxyhemoglobin 14.5 % Carboxyhemoglobin 0.3 % Methemoglobin 0.2 % Total Hemoglobin 13.5 % Total Oxygen Concentration 16.1 % Blood Gas Temperature 37 Oxygen Delivery Method (LAB) VENTILATOR Blood Gas Vent Mode AC VC+ Blood Gas Vent Rate 26 FiO2 100 % Blood Gas Tidal Volume 320 ML Blood Gas PEEP 14.0 CMH2O Total Carbon Dioxide 34.4 mmol/L Bedside Glucose 114 Urine Collection Type CATH Urine Color YELLOW Urine Appearance CLEAR Urine Bilirubin SMALL Urine Ictotest NEGATIVE Urine Ketones NEGATIVE Urine Specific [place] >=1.030 Urine pH 6.0 Urine Protein TRACE Urine Urobilinogen >=8.0 E.U./dL Urine Nitrate NEGATIVE Urine Leukocyte Esterase NEGATIVE Urine Glucose (Auto)(UA) NEGATIVE Urine Blood NEGATIVE Urine RBC 0-2 RBC/HPF Urine WBC 2-5 WBC/HPF Urine Squamous Epithelial Cells FEW #/HPF Urine Bacteria RARE Test 05/11/21 18:13 05/12/21 03:04 05/12/21 05:00 05/12/21 05:10 Bedside Glucose 119 Blood Gas Sample Site RT RADIAL ARTERY RT RADIAL ARTERY Blood Gas pH 7.232 7.370 Blood Gas PCO2 103.1 mmHg 71.8 mmHg Blood Gas PO2 64.8 mmHg 58.0 mmHg Blood Gas HCO3 42.4 mmol/L 40.6 mmol/L Blood Gas Base Excess 10.7 mmol/L 11.8 mmol/L Lucas Test POSITIVE POSITIVE Arterial Blood Oxygen Saturation 86.7 % 84.5 % Deoxyhemoglobin 13.1 % 15.5 % Carboxyhemoglobin 0.8 % 0.2 % Methemoglobin 0.5 % 0.1 % Total Hemoglobin 13.2 % 13.7 % Total Oxygen Concentration 15.9 % 16.2 % Oxygen Delivery Method (LAB) VENTILATOR VENTILATOR Blood Gas Vent Mode AC+ AC+ Blood Gas Vent Rate 26 32 FiO2 100 % 100 % Blood Gas Tidal Volume 320 ML 320 ML Blood Gas PEEP 14.0 CMH2O 14.0 CMH2O Total Carbon Dioxide 45.6 mmol/L 42.8 mmol/L Blood Gas Temperature 37.0 White Blood Count 13.9 10^3/uL Red Blood Count 4.46 10^6/uL Hemoglobin 12.9 g/dL Hematocrit 41.6 % Mean Corpuscular Volume 93.3 fL Mean Corpuscular Hemoglobin 28.9 pg Mean Corpuscular Hemoglobin Concent 31.0 g/dL Red Cell Distribution Width 12.2 % Platelet Count 197 10^3/uL Mean Platelet Volume 11.1 fL Neutrophils (%) (Auto) 94.4 % Lymphocytes (%) (Auto) 3.0 % Monocytes (%) (Auto) 1.8 % Neutrophils # (Auto) 13.1 10^3/uL Lymphocytes # (Auto) 0.41 10^3/uL1 Monocytes # (Auto) 0.3 10^3/uL Absolute Immature Granulocyte (auto 0.10 10^3 u/L Absolute Eosinophils (auto) 0.0 10^3/uL Immature Granulocytes % 0.70 % Eosinophils % 0.1 % Basophils % 0.0 % Basophils # 0.0 10^3/uL Prothrombin Time 10.8 SEC Prothrombin Time INR (Non-Therap) 1.0 Activated Partial Thromboplast Time 24.7 SEC Sodium Level 148 mmol/L Potassium Level 3.7 mmol/L Chloride Level 105.0 mmol/L Carbon Dioxide Level 39.0 mmol/L Anion Gap 7.7 Blood Urea Nitrogen 22 mg/dL Creatinine 0.51 mg/dL Estimated GFR () 165.1 Est GFR (CKD-EPI)(Non-Afr [place]) 136.5 BUN/Creatinine Ratio 43.0 Glucose Level 156 mg/dL Hemoglobin A1c 6.5 % Calcium Level 8.7 mg/dL Phosphorus Level 4.3 mg/dL Magnesium Level 2.3 mg/dL Total Bilirubin 0.5 mg/dL Aspartate Amino Transf (AST/SGOT) 38 U/L Alanine Aminotransferase (ALT/SGPT) 60 U/L Alkaline Phosphatase 83 U/L Total Protein 6.7 g/dL Albumin 2.0 g/dL Globulin 4.7 Albumin/Globulin Ratio 0.425 Triglycerides Level 261 mg/dL Test 05/12/21 06:15 05/12/21 12:23 05/12/21 18:25 05/13/21 00:02 Differential Total Cells Counted 100 #CELLS Segmented Neutrophils 95 % Lymphocytes 3 % Monocytes 2 % Platelet Estimate ADEQUATE Platelet Morphology NORMAL Anisocytosis 1+ Bedside Glucose 132 110 170 Test 05/13/21 04:24 05/13/21 04:25 05/13/21 12:22 05/13/21 18:13 White Blood Count 13.3 10^3/uL Red Blood Count 4.23 10^6/uL Hemoglobin 12.6 g/dL Hematocrit 39.6 % Mean Corpuscular Volume 93.6 fL Mean Corpuscular Hemoglobin 29.8 pg Mean Corpuscular Hemoglobin Concent 31.8 g/dL Red Cell Distribution Width 12.1 % Platelet Count 204 10^3/uL Mean Platelet Volume 10.4 fL Neutrophils (%) (Auto) 95.0 % Lymphocytes (%) (Auto) 3.2 % Monocytes (%) (Auto) 1.5 % Neutrophils # (Auto) 12.7 10^3/uL Lymphocytes # (Auto) 0.43 10^3/uL1 Monocytes # (Auto) 0.2 10^3/uL Absolute Immature Granulocyte (auto 0.06 10^3 u/L Absolute Eosinophils (auto) 0.0 10^3/uL Immature Granulocytes % 0.50 % Eosinophils % 0.2 % Basophils % 0.1 % Basophils # 0.0 10^3/uL Sodium Level 147 mmol/L Potassium Level 4.0 mmol/L Chloride Level 105.0 mmol/L Carbon Dioxide Level 38.6 mmol/L Anion Gap 7.4 Blood Urea Nitrogen 20 mg/dL Creatinine 0.49 mg/dL Estimated GFR () 172.9 Est GFR (CKD-EPI)(Non-Afr [place]) 142.9 BUN/Creatinine Ratio 40.0 Glucose Level 165 mg/dL Calcium Level 8.5 mg/dL Phosphorus Level 2.5 mg/dL Magnesium Level 2.3 mg/dL Total Bilirubin 0.5 mg/dL Aspartate Amino Transf (AST/SGOT) 25 U/L Alanine Aminotransferase (ALT/SGPT) 48 U/L Alkaline Phosphatase 70 U/L Total Protein 6.6 g/dL Albumin 2.1 g/dL Globulin 4.5 Albumin/Globulin Ratio 0.466 Blood Gas Sample Site ART LINE Blood Gas pH 7.389 Blood Gas PCO2 61.8 mmHg Blood Gas PO2 52.5 mmHg Blood Gas HCO3 36.5 mmol/L Blood Gas Base Excess 9.3 mmol/L Arterial Blood Oxygen Saturation 84.4 % Deoxyhemoglobin 15.4 % Carboxyhemoglobin 0.6 % Methemoglobin 0.5 % Total Hemoglobin 13.0 % Total Oxygen Concentration 15.3 % Blood Gas Temperature 37.0 Oxygen Delivery Method (LAB) VENTILATOR Blood Gas Vent Mode AC+ Blood Gas Vent Rate 32 FiO2 100 % Blood Gas Tidal Volume 320 ML Blood Gas PEEP 14.0 CMH2O Total Carbon Dioxide 38.4 mmol/L Triglycerides Level 271 mg/dL Bedside Glucose 147 128 Test 05/14/21 04:30 05/14/21 04:35 05/14/21 12:00 05/14/21 12:10 White Blood Count 16.1 10^3/uL Red Blood Count 4.69 10^6/uL Hemoglobin 13.8 g/dL Hematocrit 44.3 % Mean Corpuscular Volume 94.5 fL Mean Corpuscular Hemoglobin 29.4 pg Mean Corpuscular Hemoglobin Concent 31.2 g/dL Red Cell Distribution Width 12.2 % Platelet Count 253 10^3/uL Mean Platelet Volume 10.9 fL Sodium Level 146 mmol/L Potassium Level 4.1 mmol/L Chloride Level 104.0 mmol/L Carbon Dioxide Level 39.8 mmol/L Anion Gap 6.3 Blood Urea Nitrogen 24 mg/dL Creatinine 0.54 mg/dL Estimated GFR () 154.6 Est GFR (CKD-EPI)(Non-Afr [place]) 127.7 BUN/Creatinine Ratio 44.0 Glucose Level 131 mg/dL Calcium Level 8.8 mg/dL Total Bilirubin 0.5 mg/dL Aspartate Amino Transf (AST/SGOT) 28 U/L Alanine Aminotransferase (ALT/SGPT) 45 U/L Alkaline Phosphatase 67 U/L Total Protein 7.1 g/dL Albumin 2.4 g/dL Globulin 4.7 Albumin/Globulin Ratio 0.510 Triglycerides Level 314 mg/dL Blood Gas Sample Site ART LINE Blood Gas pH 7.280 Blood Gas PCO2 84.0 mmHg Blood Gas PO2 60.1 mmHg Blood Gas HCO3 38.6 mmol/L Blood Gas Base Excess 8.4 mmol/L Lucas Test N/A Arterial Blood Oxygen Saturation 88.1 % Deoxyhemoglobin 11.8 % Carboxyhemoglobin 0.4 % Methemoglobin 0.3 % Total Hemoglobin 14.0 % Total Oxygen Concentration 17.2 % Blood Gas Temperature 37 Oxygen Delivery Method (LAB) VENT Blood Gas Vent Mode AC/VC Blood Gas Vent Rate 35 FiO2 100 % Blood Gas Tidal Volume 320 ML Blood Gas PEEP 16 CMH2O Total Carbon Dioxide 41.2 mmol/L Bedside Glucose 151 Urine Collection Type UNKNOWN Urine Color YELLOW Urine Appearance CLEAR Urine Bilirubin SMALL Urine Ictotest POSITIVE Urine Ketones 15 mg/dL Urine Specific [place] >=1.030 Urine pH 5.5 Urine Protein NEGATIVE Urine Urobilinogen 2.0 E.U./dL Urine Nitrate NEGATIVE Urine Leukocyte Esterase NEGATIVE Urine Glucose (Auto)(UA) NEGATIVE Urine Blood NEGATIVE Nasal Adenovirus (PCR) NotDetected Nasal Coronavirus Type 229E (PCR) NotDetected Nasal Coronavirus Type HKU1 (PCR) NotDetected Nasal Coronavirus Type NL63 (PCR) NotDetected Nasal Coronavirus Type OC43 (PCR) NotDetected Nasal Enterovirus/Rhinovirus (PCR) NotDetected Nasal Influenza Type A (H1) (PCR) NotDetected Nasal Influenza Type A (H3) (PCR) NotDetected Nasal Swab Influenza Virus B (PCR) NotDetected Nasal Parainfluenza Type 1 (PCR) NotDetected Nasal Parainfluenza Type 2 (PCR) NotDetected Nasal Parainfluenza Type 3 (PCR) NotDetected Nasal Parainfluenza Type 4 (PCR) NotDetected Nasal Resp Syncytial Virus (PCR) NotDetected Nasal Bordetella pertussis DNA (PCR NotDetected Nasal Chlamydophila pneumoniae (PCR NotDetected Nasal Human Metapneumovirus (PCR) NotDetected Nasal Mycoplasma pneumoniae (PCR) NotDetected Nasal SARS-CoV-2 (PCR) DETECTED Influenza Type A (H1N1/09) (PCR) NotDetected Test 05/14/21 14:00 05/14/21 18:09 05/15/21 00:00 05/15/21 05:25 Blood Gas Sample Site ART LINE Blood Gas pH 7.386 Blood Gas PCO2 61.1 mmHg Blood Gas PO2 51.9 mmHg Blood Gas HCO3 35.8 mmol/L Blood Gas Base Excess 8.5 mmol/L Lucas Test N/A Arterial Blood Oxygen Saturation 86.5 % Deoxyhemoglobin 13.4 % Carboxyhemoglobin 0.5 % Methemoglobin 0.0 % Total Hemoglobin 14.1 % Total Oxygen Concentration 17.0 % Blood Gas Temperature 37.0 Oxygen Delivery Method (LAB) VENT Blood Gas Vent Mode AC Blood Gas Vent Rate 35 FiO2 100 % Blood Gas Tidal Volume 320 ML Blood Gas PEEP 16.0 CMH2O Total Carbon Dioxide 37.7 mmol/L Bedside Glucose 134 194 White Blood Count 12.1 10^3/uL Red Blood Count 4.22 10^6/uL Hemoglobin 12.3 g/dL Hematocrit 40.1 % Mean Corpuscular Volume 95.0 fL Mean Corpuscular Hemoglobin 29.1 pg Mean Corpuscular Hemoglobin Concent 30.7 g/dL Red Cell Distribution Width 12.8 % Platelet Count 219 10^3/uL Mean Platelet Volume 10.5 fL Neutrophils (%) (Auto) 79.6 % Lymphocytes (%) (Auto) 13.3 % Monocytes (%) (Auto) 4.4 % Neutrophils # (Auto) 9.6 10^3/uL Lymphocytes # (Auto) 1.61 10^3/uL1 Monocytes # (Auto) 0.5 10^3/uL Absolute Immature Granulocyte (auto 0.09 10^3 u/L Absolute Eosinophils (auto) 0.3 10^3/uL Immature Granulocytes % 0.70 % Eosinophils % 2.6 % Basophils % 0.1 % Basophils # 0.0 10^3/uL Sodium Level 144 mmol/L Potassium Level 3.7 mmol/L Chloride Level 105.0 mmol/L Carbon Dioxide Level 37.2 mmol/L Anion Gap 5.5 Blood Urea Nitrogen 31 mg/dL Creatinine 0.52 mg/dL Estimated GFR () 161.4 Est GFR (CKD-EPI)(Non-Afr [place]) 133.4 BUN/Creatinine Ratio 59.0 Glucose Level 165 mg/dL Calcium Level 8.4 mg/dL Total Bilirubin 0.5 mg/dL Aspartate Amino Transf (AST/SGOT) 28 U/L Alanine Aminotransferase (ALT/SGPT) 39 U/L Alkaline Phosphatase 53 U/L Total Protein 6.5 g/dL Albumin 2.2 g/dL Globulin 4.3 Albumin/Globulin Ratio 0.511 Procalcitonin 0.17 ng/mL Test 05/15/21 05:42 05/15/21 08:18 05/15/21 12:10 05/15/21 17:48 Blood Gas Sample Site ART LINE JUAN Blood Gas pH 7.360 7.320 Blood Gas PCO2 73.1 mmHg 65.0 mmHg Blood Gas PO2 mmHg 59.7 mmHg Blood Gas HCO3 40.4 mmol/L 32.7 mmol/L Blood Gas Base Excess 11.9 mmol/L 4.8 mmol/L Lucas Test N/A POSITIVE Arterial Blood Oxygen Saturation 89.6 % 88.4 % Deoxyhemoglobin 10.3 % 11.5 % Carboxyhemoglobin 1.0 % 0.4 % Methemoglobin 0.3 % 0.2 % Total Hemoglobin 13.1 % 13.1 % Total Oxygen Concentration 16.1 % 16.2 % Oxygen Delivery Method (LAB) VENT FiO2 100 % 100 % Blood Gas PEEP 16.0 CMH2O 16 CMH2O Total Carbon Dioxide 42.6 mmol/L 34.7 mmol/L Blood Gas Vent Mode A/C Blood Gas Vent Rate 35 Blood Gas Tidal Volume 320 ML Bedside Glucose 212 159 Test 05/15/21 23:51 05/16/21 00:00 05/16/21 04:29 05/16/21 04:48 Vancomycin Level Trough 3.7 ug/mL Bedside Glucose 163 Blood Gas Sample Site ART LINE Blood Gas pH 7.325 Blood Gas PCO2 82.9 mmHg Blood Gas PO2 60.7 mmHg Blood Gas HCO3 42.2 mmol/L Blood Gas Base Excess 13.0 mmol/L Lucas Test N/A Arterial Blood Oxygen Saturation 89.7 % Deoxyhemoglobin 10.2 % Carboxyhemoglobin 0.9 % Methemoglobin 0.4 % Total Hemoglobin 11.7 % Total Oxygen Concentration 14.6 % Blood Gas Temperature 37.0 Oxygen Delivery Method (LAB) VENTILATOR Blood Gas Vent Mode AC+ Blood Gas Vent Rate 35 FiO2 100 % Blood Gas Tidal Volume 320 ML Blood Gas PEEP 16.0 CMH2O Total Carbon Dioxide 44.8 mmol/L White Blood Count 10.9 10^3/uL Red Blood Count 3.71 10^6/uL Hemoglobin 11.0 g/dL Hematocrit 35.3 % Mean Corpuscular Volume 95.1 fL Mean Corpuscular Hemoglobin 29.6 pg Mean Corpuscular Hemoglobin Concent 31.2 g/dL Red Cell Distribution Width 12.2 % Platelet Count 173 10^3/uL Mean Platelet Volume 10.8 fL Neutrophils (%) (Auto) 78.7 % Lymphocytes (%) (Auto) 13.2 % Monocytes (%) (Auto) 3.9 % Neutrophils # (Auto) 8.6 10^3/uL Lymphocytes # (Auto) 1.44 10^3/uL1 Monocytes # (Auto) 0.4 10^3/uL Absolute Immature Granulocyte (auto 0.06 10^3 u/L Absolute Eosinophils (auto) 0.5 10^3/uL Immature Granulocytes % 0.60 % Eosinophils % 4.1 % Basophils % 0.1 % Basophils # 0.0 10^3/uL Erythrocyte Sedimentation Rate 70 mm/hr D-Dimer 1.80 mg/L Sodium Level 145 mmol/L Potassium Level 3.2 mmol/L Chloride Level 106.0 mmol/L Carbon Dioxide Level 38.9 mmol/L Anion Gap 3.3 Blood Urea Nitrogen 21 mg/dL Creatinine 0.35 mg/dL Estimated GFR () 254.9 Est GFR (CKD-EPI)(Non-Afr [place]) 210.7 BUN/Creatinine Ratio 60.0 Glucose Level 172 mg/dL Calcium Level 8.1 mg/dL Total Bilirubin 0.3 mg/dL Aspartate Amino Transf (AST/SGOT) 38 U/L Alanine Aminotransferase (ALT/SGPT) 33 U/L Alkaline Phosphatase 41 U/L Lactate Dehydrogenase 260 U/L C-Reactive Protein 3.48 mg/dL Total Protein 5.8 g/dL Albumin 2.0 g/dL Globulin 3.8 Albumin/Globulin Ratio 0.526 HIV (1&2) Antibody Screen NON-REACTIVE Test 05/16/21 17:43 05/17/21 00:47 05/17/21 05:19 05/17/21 05:25 Bedside Glucose 191 170 Blood Gas Sample Site ART LINE Blood Gas pH 7.328 Blood Gas PCO2 75.8 mmHg Blood Gas PO2 77.7 mmHg Blood Gas HCO3 38.9 mmol/L Blood Gas Base Excess 10.4 mmol/L Lucas Test N/A Arterial Blood Oxygen Saturation 94.2 % Deoxyhemoglobin 5.8 % Carboxyhemoglobin 0.3 % Methemoglobin 0.4 % Total Hemoglobin 11.4 % Total Oxygen Concentration 15.1 % Blood Gas Temperature 37.0 Oxygen Delivery Method (LAB) VENTILATOR Blood Gas Vent Mode AC+ Blood Gas Vent Rate 35 FiO2 100 % Blood Gas Tidal Volume 320 ML Blood Gas PEEP 16.0 CMH2O Total Carbon Dioxide 41.2 mmol/L White Blood Count 12.4 10^3/uL Red Blood Count 3.56 10^6/uL Hemoglobin 10.5 g/dL Hematocrit 33.9 % Mean Corpuscular Volume 95.2 fL Mean Corpuscular Hemoglobin 29.5 pg Mean Corpuscular Hemoglobin Concent 31.0 g/dL Red Cell Distribution Width 12.3 % Platelet Count 191 10^3/uL Mean Platelet Volume 10.8 fL Neutrophils (%) (Auto) 74.8 % Lymphocytes (%) (Auto) 16.8 % Monocytes (%) (Auto) 3.8 % Neutrophils # (Auto) 9.3 10^3/uL Lymphocytes # (Auto) 2.08 10^3/uL1 Monocytes # (Auto) 0.5 10^3/uL Absolute Immature Granulocyte (auto 0.09 10^3 u/L Absolute Eosinophils (auto) 0.6 10^3/uL Immature Granulocytes % 0.70 % Eosinophils % 4.4 % Basophils % 0.2 % Basophils # 0.0 10^3/uL Sodium Level 146 mmol/L Potassium Level 2.9 mmol/L Chloride Level 105.0 mmol/L Carbon Dioxide Level 38.7 mmol/L Anion Gap 5.2 Blood Urea Nitrogen 13 mg/dL Creatinine 0.29 mg/dL Estimated GFR () 316.7 Est GFR (CKD-EPI)(Non-Afr Tanzanian) 261.8 BUN/Creatinine Ratio 44.0 Glucose Level 198 mg/dL Calcium Level 8.1 mg/dL Magnesium Level 1.6 mg/dL Total Bilirubin 0.3 mg/dL Aspartate Amino Transf (AST/SGOT) 29 U/L Alanine Aminotransferase (ALT/SGPT) 30 U/L Alkaline Phosphatase 50 U/L Pro-B-Type Natriuretic Peptide 227 pg/mL Total Protein 5.6 g/dL Albumin 1.9 g/dL Globulin 3.7 Albumin/Globulin Ratio 0.513 Procalcitonin 0.13 ng/mL Test 05/17/21 08:45 Vancomycin Level Trough 9.6 ug/mL Current Medications Medications (Trade) Dose Ordered Sig/Davon Route PRN Reason Start Time Stop Time Status Last Admin Dose Admin Remdesivir 200 mg/ Sodium Chloride 140 ml @ 120.69 mls/ hr OT STAT IV 04/28/21 19:53 04/29/21 08:10 DC 04/28/21 19:53 Remdesivir 100 mg/ Sodium Chloride 120 ml @ 111.111 mls/hr Q24HRS IV 04/29/21 20:00 05/02/21 21:05 DC 05/02/21 20:45 Famotidine (Pepcid) 20 mg BID PO 04/28/21 21:00 05/07/21 09:31 DC 05/06/21 08:14 Sucralfate (Carafate) 1 gm ACHS PO 04/28/21 21:00 05/15/21 07:29 DC 05/12/21 21:00 Enoxaparin Sodium (Lovenox) 40 mg Q24HRS SQ 04/28/21 20:00 05/06/21 08:06 DC 05/05/21 21:00 Sucralfate (Carafate) 1 gm STK-MED ONCE PO 04/28/21 20:56 04/28/21 20:56 DC Lorazepam (Ativan) 1 mg Q4HR PRN IV ANXIETY 04/29/21 00:00 05/12/21 09:13 DC 05/06/21 18:45 Lorazepam (Ativan) 0.5 mg Q4HR PRN IV ANXIETY 04/29/21 00:00 05/06/21 09:00 DC Fentanyl Citrate (Sublimaze) 50 mcg STK-MED ONCE .ROUTE 04/29/21 11:37 04/29/21 11:38 DC Fentanyl Citrate (Sublimaze) 12.5 mcg OT ONCE IV 04/29/21 15:00 04/29/21 15:06 DC 04/29/21 13:35 Acetaminophen (Tylenol) 650 mg Q6HR PRN PO PAIN 1 - 3 04/30/21 18:00 05/02/21 18:00 DC 05/01/21 06:28 Dexmedetomidine HCl 200 mcg/ Sodium Chloride 50 ml @ 0 mls/hr IV 05/01/21 10:30 05/01/21 11:28 DC Sodium Chloride 250 ml @ ud STK-MED ONCE .ROUTE 05/01/21 20:40 05/01/21 20:40 DC Acetaminophen (Tylenol) 650 mg Q6HR PRN PO PAIN 1 - 3 05/02/21 20:30 05/08/21 18:01 DC 05/04/21 21:15 Bisacodyl (Dulcolax Ec Tablet) 5 mg STAT STAT PO 05/03/21 13:45 05/03/21 19:05 DC 05/03/21 14:36 Docusate Sodium (Colace) 100 mg BID PO 05/05/21 09:00 05/07/21 09:30 DC 05/06/21 08:14 Lorazepam (Ativan) 2 mg STK-MED ONCE .ROUTE 05/05/21 02:31 05/05/21 02:31 DC Lorazepam (Ativan) 2 mg STK-MED ONCE .ROUTE 05/05/21 03:46 05/05/21 03:47 DC Furosemide (Lasix) 20 mg OT ONCE IV 05/05/21 11:00 05/05/21 11:01 DC 05/05/21 11:20 Lorazepam (Ativan) 2 mg STK-MED ONCE .ROUTE 05/05/21 20:56 05/05/21 20:56 DC Enoxaparin Sodium (Lovenox) 100 mg Q12H SQ 05/06/21 08:30 06/05/21 08:29 05/17/21 08:13 Furosemide (Lasix) 20 mg STAT STAT IV 05/06/21 08:48 05/06/21 09:00 DC 05/06/21 08:48 Insulin Human Regular (Humulin R) 1 unit STK-MED ONCE .ROUTE 05/06/21 19:13 05/06/21 19:14 DC Propofol (Diprivan) 1,000 mg PRN PRN IV SEDATION 05/06/21 20:30 05/08/21 11:39 DC 05/08/21 04:00 Propofol 100 ml @ ud STK-MED ONCE IV 05/06/21 20:19 05/06/21 20:19 DC Vecuronium Bennet (Norcuron) 10 mg STK-MED ONCE .ROUTE 05/06/21 22:24 05/06/21 22:24 DC Vecuronium Bennet (Norcuron) 10 mg Q6HR PRN IV SHORTNESS OF BREATH 05/06/21 23:00 05/07/21 00:34 DC Vecuronium Bennet (Norcuron) 10 mg Q4 PRN IV SHORTNESS OF BREATH 05/07/21 00:30 05/12/21 00:00 DC 05/11/21 20:00 Vecuronium Bennet (Norcuron) 10 mg STK-MED ONCE .ROUTE 05/07/21 00:20 05/07/21 00:34 DC Propofol 100 ml @ ud STK-MED ONCE IV 05/07/21 01:53 05/07/21 01:53 DC Norepinephrine Bitartrate 8 mg/ Sodium Chloride 250 ml @ 0 mls/hr DAILY IV 05/07/21 09:00 05/10/21 16:46 DC 05/09/21 09:00 Fentanyl Citrate (Sublimaze) 100 mcg Q1HR IV 05/07/21 04:00 05/07/21 09:58 DC Piperacillin Sod/ Tazobactam Sod 4.5 gm/Sodium Chloride 100 ml @ 100 mls/hr Q6H IV 05/07/21 04:00 05/12/21 09:15 DC 05/11/21 22:00 Norepinephrine Bitartrate (Levophed) 4 mg STK-MED ONCE .ROUTE 05/07/21 04:38 05/07/21 04:38 DC Sodium Chloride 250 ml @ ud STK-MED ONCE .ROUTE 05/07/21 04:38 05/07/21 04:38 DC Fentanyl Citrate (Sublimaze) 100 mcg Q1HR PRN IV PAIN 7 - 10 05/07/21 06:30 05/12/21 09:13 DC 05/07/21 06:41 Fentanyl Citrate 2000 mcg/Sodium Chloride 200 ml @ 0 mls/hr IV 05/07/21 10:00 05/07/21 17:01 DC 05/07/21 10:30 Famotidine (Pepcid) 20 mg BID IV 05/07/21 09:30 06/06/21 09:29 05/17/21 08:13 Docusate Sodium (Colace) 100 mg BID NG 05/07/21 09:30 06/06/21 09:29 05/16/21 10:24 Propofol (Diprivan) 200 mg STK-MED ONCE IV 05/07/21 08:00 8/11/21 11:57 DC Succinylcholine Chloride (Quelicin) 8 mg STK-MED ONCE IV 05/07/21 08:00 05/07/21 11:57 DC Vecuronium Bennet (Norcuron) 10 mg STK-MED ONCE IV 05/07/21 08:00 05/07/21 11:57 DC Propofol 100 ml @ ud STK-MED ONCE IV 05/07/21 14:49 05/07/21 14:50 DC Fentanyl Citrate 5000 mcg/Sodium Chloride 500 ml @ 0 mls/hr IV 05/07/21 18:00 06/06/21 17:59 05/17/21 08:12 Propofol 100 ml @ ud STK-MED ONCE IV 05/07/21 19:08 05/07/21 19:08 DC Propofol 100 ml @ ud STK-MED ONCE IV 05/07/21 23:47 05/07/21 23:47 DC Propofol 100 ml @ ud STK-MED ONCE IV 05/08/21 03:45 05/08/21 03:46 DC Propofol 100 ml @ ud STK-MED ONCE IV 05/08/21 07:33 05/08/21 07:34 DC Propofol 100 ml @ ud STK-MED ONCE IV 05/08/21 11:27 05/08/21 11:27 DC Propofol 100 ml @ 27.6 mls/hr PRN PRN IV SEDATION 05/08/21 12:00 06/07/21 11:59 05/14/21 03:30 Acetaminophen (Tylenol) 650 mg Q6HR PRN RC FEVER 05/08/21 22:00 06/07/21 21:59 05/15/21 23:52 Midazolam HCl 50 mg/Sodium Chloride 50 ml @ 2 mls/hr ONCE IV 05/09/21 14:30 05/10/21 09:50 DC 05/09/21 14:30 Hydromorphone HCl (Dilaudid) 2 mg STK-MED ONCE .ROUTE 05/09/21 20:10 05/09/21 20:10 DC Hydromorphone HCl (Dilaudid) 0.5 mg Q4H PRN IV PAIN 7 - 10 05/09/21 20:00 06/08/21 19:59 05/11/21 21:00 Sodium Chloride 100 ml @ ud STK-MED ONCE IV 05/09/21 21:13 05/09/21 21:13 DC Midazolam HCl 100 mg/Sodium Chloride 100 ml @ 0 mls/hr ONCE IV 05/10/21 10:00 05/10/21 10:01 DC 05/10/21 10:55 Furosemide (Lasix) 20 mg BID IV 05/10/21 10:30 05/10/21 12:38 DC 05/10/21 10:55 Furosemide (Lasix) 20 mg STK-MED ONCE .ROUTE 05/10/21 10:48 05/10/21 10:49 DC Vecuronium Bennet (Norcuron) 10 mg Q2H PRN IV ventilator dyssynchrony 05/10/21 11:30 06/09/21 11:29 05/17/21 08:12 Furosemide (Lasix) 20 mg BID IV 05/10/21 12:38 06/09/21 10:29 05/17/21 08:13 Norepinephrine Bitartrate 8 mg/ Sodium Chloride 250 ml @ 0 mls/hr DAILY IV 05/11/21 09:00 05/11/21 08:54 DC Midazolam HCl 100 mg/Sodium Chloride 100 ml @ 0 mls/hr IV 05/10/21 17:00 05/11/21 08:57 DC 05/11/21 01:39 Albuterol Sulfate (Ventolin Hfa) 200 inh STK-MED ONCE IH 05/10/21 22:44 05/10/21 22:45 DC Albuterol Sulfate (Ventolin Hfa) 2 inh OT ONCE IH 05/10/21 23:00 05/10/21 23:01 DC 05/10/21 23:15 Norepinephrine Bitartrate 8 mg/ Sodium Chloride 258 ml @ 0 mls/hr IV 05/11/21 08:00 06/10/21 07:59 05/15/21 10:17 Midazolam HCl 100 mg/Sodium Chloride 100 ml @ 0 mls/hr TITRATE IV 05/11/21 09:00 05/16/21 16:09 DC 05/16/21 12:21 Sodium Chloride 1,000 ml @ ud STK-MED ONCE .ROUTE 05/12/21 19:14 05/12/21 19:14 DC Albuterol Sulfate (Ventolin) 1.25 mg RTQ6 IH 05/14/21 03:00 05/14/21 00:49 DC Albuterol Sulfate (Ventolin) 1.25 mg RTQ6 PRN IH WHEEZING 05/14/21 03:00 06/13/21 02:59 Vancomycin HCl 1.5 gm/Sodium Chloride 300 ml @ 175 mls/hr Q12H IV 05/14/21 12:00 05/16/21 09:01 DC 05/16/21 00:00 Cefepime HCl 2 gm/ Sodium Chloride 100 ml @ 100 mls/hr BID IV 05/14/21 10:30 05/24/21 10:29 05/17/21 08:13 Acetaminophen (Ofirmev) 1,000 mg Q8H IV 05/14/21 14:30 05/14/21 16:57 DC Acetaminophen (Ofirmev) 1,000 mg Q8H PRN IV FEVER 05/14/21 17:00 06/13/21 14:29 05/16/21 16:50 Fat Emulsion Intravenous 250 ml @ 15 mls/hr Q2D IV 05/14/21 17:30 06/13/21 17:29 05/16/21 16:50 Ketorolac Tromethamine (Toradol) 30 mg OT PRN IV PAIN 4 - 6 05/14/21 21:30 05/19/21 21:29 05/14/21 21:41 Sterile Water (Water) 1,000 ml STK-MED ONCE .ROUTE 05/14/21 22:50 05/14/21 22:50 DC Sodium Chloride 100 ml @ ud STK-MED ONCE IV 05/15/21 04:22 05/15/21 04:22 DC Vancomycin HCl 1.5 gm/Sodium Chloride 300 ml @ 175 mls/hr Q8H IV 05/16/21 17:00 06/15/21 16:59 05/17/21 08:13 Vancomycin HCl 2 gm/Sodium Chloride 400 ml @ 160 mls/hr OT IV 05/16/21 09:30 06/15/21 09:29 05/16/21 10:24 Potassium Chloride 50 ml @ 50 mls/hr Q2 IV 05/16/21 16:00 05/16/21 20:59 DC 05/16/21 20:00 Midazolam HCl 200 mg/Sodium Chloride 200 ml @ 0 mls/hr TITRATE IV 05/16/21 16:30 06/15/21 16:29 Sodium Chloride 500 ml @ ud STK-MED ONCE IV 05/16/21 16:46 05/16/21 16:46 DC Vancomycin HCl 1 ml @ ud STK-MED ONCE .ROUTE 05/17/21 01:55 05/17/21 01:55 DC Sodium Chloride 250 ml @ ud STK-MED ONCE .ROUTE 05/17/21 01:55 05/17/21 01:56 DC VTE VTE Risk Total Score: 5 VTE Risk Score VTE Risk: Score 0-1 = Low Risk (Aggressive mobilization; early ambulation; no VTE prophylaxis required) Score 2: Moderate Risk (Intermittent/Pneumatic Compression Device OR Lovenox/Heparin/Coumadin) Score 3-4: High Risk (Intermittent/Pneumatic Compression Device AND Lovenox/Heparin/Coumadin) Score > or =5: Highest Risk (Intermittent/Pneumatic Compression Device AND Lovenox/Heparin/Coumadin) Antico:Hep/LMWH/Coum/Xarelto: Yes Mechanical device ordered: Yes VTE VTE Present on Admission: No Currently receiving anticoagul: Yes VTE Risk Total Score: 5 Antico:Hep/LMWH/Coum/Xarelto: Yes Mechanical device ordered: Yes Assessment/Plan Assessment/Plan Assessment/Plan COVID ARDS Plan ASSESSMENT / PLAN: 1) Acute Hypoxemic Respiratory Failure / Severe ARDS: Pt remains intubated (since 05/06/21) and sedated at this time. On Tv320, RR 35, Peep 16, FiO2 100% ABG 7.32/75/77/38 will dec to FiO2 90% 2) COVID-19 +: Pt has completed Tx with Remdesivir, and remains on Dexamethasone for now. She would benefit from ECMO and/or lung transplant evaluation. However, due to the Pandemic and COVID surge, no beds are available for transfer to a Higher Level of Care in [place], [place], or [place] at this gerry e. She still remains on the "wait list" for several facilities, we are con't to prone the pt as needed daily for 6 hours, if O2 sat >90% in supine position consider stopping NMBA. 3) Remains febrile and her Midline was removed and tip cultured. Vancomycin and Cefepime started ID consult. Repeat procalcitonin 0.17 4) Hyperglycemia: Exacerbated by Steroids and TF. HgbA1c is 6.5. 5) started on TPN but will try to restart TF's and con't supine and prone (guideline suggest pt's can be fed enterally in the prone position) 6) GI and DVT prophylaxis: Will continue Pepcid and Lovenox-full dose. Patient seen through remote audiovisual assessment through HIPAA compliant setup. All relevant labs, flowsheets, and images reviewed. Plan of care discussed with ICU bedside team. Reviwed with Dr. Pedersen and bedside RN Cumulative nonprocedural critical care time spent in directed patient care = 60 min RICHARD MOONEY MD May 17, 2021 10:23
--- NOTE | 2021-05-17 11:06 | PRM.PN ---
Subjective Subjective Date: May 17, 2021 Time: 11:03 Subjective Multidisciplinary rounds conducted with ICU critical care telemedicine, [employer], and RT VTE VTE Risk Total Score: 5 VTE Risk Score VTE Risk: Score 0-1 = Low Risk (Aggressive mobilization; early ambulation; no VTE prophylaxis required) Score 2: Moderate Risk (Intermittent/Pneumatic Compression Device OR Lovenox/Heparin/Coumadin) Score 3-4: High Risk (Intermittent/Pneumatic Compression Device AND Lovenox/Heparin/Coumadin) Score > or =5: Highest Risk (Intermittent/Pneumatic Compression Device AND Lovenox/Heparin/Coumadin) Antico:Hep/LMWH/Coum/Xarelto: Yes Mechanical device ordered: Yes Review of Systems Constitutional: No: Fever, Chills, Weakness Eyes: No: Pain, Vision change, Conjunctivae inflammation, Eyelid inflammation, Other, Redness ENT: No: Ear pain, Ear discharge, Nose pain, Nose discharge, Nose congestion, Mouth pain, Mouth swelling, Throat pain, Throat swelling, Other Respiratory: No: Cough, Dry, Shortness of breath, SOB with excertion Cardiovascular: No: Chest Pain, Orthopnea Gastrointestinal: No: Nausea, Vomiting, Abdominal Pain, Diarrhea, Constipation, Melena, Hematochezia, Other Genitourinary: No Dysuria, No Frequency Musculoskeletal: No: back pain, hand pain Skin: No: Jaundice Neurological: No: Weakness, Numbness, Incoordination Other Limited by intubation and sedation Allergies: Coded Allergies: ibuprofen (Verified Allergy, Unknown, 04/29/21) naproxen (Verified Allergy, Unknown, 04/29/21) Objective General: Other (Intubated sedated.) HEENT: Atraumatic, PERRLA, EOMI Neck: Supple, No JVD Lungs: Other (Coarse bilateral breath sounds, respirations non labored) Heart: No murmurs Abdomen: Normal bowel sounds, Soft Extremities: No clubbing, No cyanosis Skin: No rashes, No breakdown Neuro: Normal speech, Strength at 5/5 X4 ext, Other (Intubated sedated.) Psych/Mental Status: Other (Intubated sedated.) All Results(Lab/Rad) Laboratory Tests Test 05/02/21 06:37 05/02/21 08:25 White Blood Count 7.6 10^3/uL Red Blood Count 4.62 10^6/uL Hemoglobin 13.6 g/dL Hematocrit 40.6 % Mean Corpuscular Volume 87.9 fL Mean Corpuscular Hemoglobin 29.4 pg Mean Corpuscular Hemoglobin Concent 33.5 g/dL Red Cell Distribution Width 12.0 % Platelet Count 268 10^3/uL Mean Platelet Volume 10.5 fL Neutrophils (%) (Auto) 82.9 % Lymphocytes (%) (Auto) 11.7 % Monocytes (%) (Auto) 5.4 % Neutrophils # (Auto) 6.3 10^3/uL Lymphocytes # (Auto) 0.89 10^3/uL1 Monocytes # (Auto) 0.4 10^3/uL Absolute Immature Granulocyte (auto 0.12 10^3 u/L Absolute Eosinophils (auto) 0.0 10^3/uL Immature Granulocytes % 1.60 % Eosinophils % 0.0 % Basophils % 0.0 % Basophils # 0.0 10^3/uL Sodium Level 140 mmol/L Potassium Level 4.7 mmol/L Chloride Level 104.0 mmol/L Carbon Dioxide Level 27.6 mmol/L Anion Gap 13.1 Blood Urea Nitrogen 14 mg/dL Creatinine 0.62 mg/dL Estimated GFR () 131.8 Est GFR (CKD-EPI)(Non-Afr Burkinan) 108.9 BUN/Creatinine Ratio 22.0 Glucose Level 121 mg/dL Calcium Level 8.8 mg/dL Total Bilirubin 0.4 mg/dL Aspartate Amino Transf (AST/SGOT) 26 U/L Alanine Aminotransferase (ALT/SGPT) 37 U/L Alkaline Phosphatase 42 U/L Total Protein 6.7 g/dL Albumin 2.5 g/dL Globulin 4.2 Albumin/Globulin Ratio 0.595 Blood Gas Sample Site RT RADIAL ARTERY Blood Gas pH 7.405 Blood Gas PCO2 41.1 mmHg Blood Gas PO2 82.5 mmHg Blood Gas HCO3 25.2 mmol/L Blood Gas Base Excess 0.4 mmol/L Lucas Test POSITIVE Arterial Blood Oxygen Saturation 95.5 % Deoxyhemoglobin 4.5 % Carboxyhemoglobin 0.6 % Methemoglobin 0.3 % Total Hemoglobin 14.6 % Total Oxygen Concentration 19.5 % Blood Gas Temperature 37 Oxygen Delivery Method (LAB) BIPAP15/7 FiO2 99 % Total Carbon Dioxide 26.4 mmol/L Current Medications Medications (Trade) Dose Ordered Sig/Davon Route PRN Reason Start Time Stop Time Status Last Admin Dose Admin Remdesivir 200 mg/ Sodium Chloride 140 ml @ 120.69 mls/ hr OT STAT IV 04/28/21 19:53 04/29/21 08:10 DC 04/28/21 19:53 Remdesivir 100 mg/ Sodium Chloride 120 ml @ 111.111 mls/hr Q24HRS IV 04/29/21 20:00 05/02/21 21:05 05/01/21 20:50 Famotidine (Pepcid) 20 mg BID PO 04/28/21 21:00 05/28/21 20:59 05/02/21 09:29 Sucralfate (Carafate) 1 gm ACHS PO 04/28/21 21:00 05/28/21 20:59 05/02/21 07:30 Enoxaparin Sodium (Lovenox) 40 mg Q24HRS SQ 04/28/21 20:00 05/28/21 19:59 05/01/21 20:50 Sucralfate (Carafate) 1 gm STK-MED ONCE PO 04/28/21 20:56 04/28/21 20:56 DC Lorazepam (Ativan) 1 mg Q4HR PRN IV ANXIETY 04/29/21 00:00 05/29/21 00:00 04/30/21 22:30 Lorazepam (Ativan) 0.5 mg Q4HR PRN IV ANXIETY 04/29/21 00:00 05/29/21 00:00 Fentanyl Citrate (Sublimaze) 50 mcg STK-MED ONCE .ROUTE 04/29/21 11:37 04/29/21 11:38 DC Fentanyl Citrate (Sublimaze) 12.5 mcg OT ONCE IV 04/29/21 15:00 04/29/21 15:06 DC 04/29/21 13:35 Acetaminophen (Tylenol) 650 mg Q6HR PRN PO PAIN 1 - 3 04/30/21 18:00 05/02/21 18:00 05/01/21 06:28 Dexmedetomidine HCl 200 mcg/ Sodium Chloride 50 ml @ 0 mls/hr IV 05/01/21 10:30 05/01/21 11:28 DC Sodium Chloride 250 ml @ ud STK-MED ONCE .ROUTE 05/01/21 20:40 05/01/21 20:40 DC Course Sepsis Screening Results: Posi: POSITIVE++ Sepsis Qualifier/Stage: SEVERE SEPSIS RISK Duration or Total Time Spent w: 60min Vitals & review Data Vital Sign - Last 24 Hours 05/02/21 05/02/21 05/02/21 05/02/21 08:00 08:07 08:15 08:22 Pulse 64 45 47 83 Resp 24 21 19 33 B/P (MAP) 104/59 (74) Pulse Ox 93 95 95 86 O2 Delivery S/T FiO2 100 05/02/21 05/02/21 05/02/21 05/02/21 08:31 08:37 08:45 08:52 Pulse 69 68 65 75 Resp 24 31 30 35 B/P (MAP) 137/87 (104) Pulse Ox 95 95 93 91 05/02/21 05/02/21 05/02/21 05/02/21 08:54 09:00 09:00 09:07 Pulse 62 64 64 Resp 10 24 38 B/P (MAP) 119/74 (89) Pulse Ox 89 93 89 O2 Delivery Bi-pap Bi-pap O2 Flow Rate 100.00 FiO2 99 05/02/21 05/02/21 05/02/21 05/02/21 09:10 09:16 09:22 09:30 Pulse 106 62 63 83 Resp 26 29 32 29 B/P (MAP) 160/72 (101) 135/77 (96) Pulse Ox 89 89 90 81 O2 Delivery Comfort Doug O2 Flow Rate 50.00 FiO2 100 05/02/21 05/02/21 05/02/21 05/02/21 09:37 09:46 09:52 10:00 Pulse 73 74 70 55 Resp 16 34 27 16 B/P (MAP) 174/107 (129) Pulse Ox 85 82 83 95 O2 Delivery S/T FiO2 100 05/02/21 05/02/21 05/02/21 05/02/21 10:00 10:07 10:15 10:22 Pulse 60 66 68 65 Resp 23 36 23 B/P (MAP) 115/77 (90) 114/79 (91) Pulse Ox 92 93 92 92 Laboratory Tests Test 05/01/21 04:32 05/01/21 11:20 05/02/21 06:37 05/02/21 08:25 White Blood Count 10.2 10^3/uL 7.6 10^3/uL Red Blood Count 4.50 10^6/uL 4.62 10^6/uL Hemoglobin 13.3 g/dL 13.6 g/dL Hematocrit 39.6 % 40.6 % Mean Corpuscular Volume 88.0 fL 87.9 fL Mean Corpuscular Hemoglobin 29.6 pg 29.4 pg Mean Corpuscular Hemoglobin Concent 33.6 g/dL 33.5 g/dL Red Cell Distribution Width 12.1 % 12.0 % Platelet Count 234 10^3/uL 268 10^3/uL Mean Platelet Volume 10.4 fL 10.5 fL Sodium Level 139 mmol/L 140 mmol/L Potassium Level 3.9 mmol/L 4.7 mmol/L Chloride Level 105.0 mmol/L 104.0 mmol/L Carbon Dioxide Level 26.8 mmol/L 27.6 mmol/L Anion Gap 11.1 13.1 Blood Urea Nitrogen 12 mg/dL 14 mg/dL Creatinine 0.56 mg/dL 0.62 mg/dL Estimated GFR () 148.2 131.8 Est GFR (CKD-EPI)(Non-Afr Burkinan) 122.5 108.9 BUN/Creatinine Ratio 21.0 22.0 Glucose Level 87 mg/dL 121 mg/dL Calcium Level 8.8 mg/dL 8.8 mg/dL Total Bilirubin 0.5 mg/dL 0.4 mg/dL Aspartate Amino Transf (AST/SGOT) 36 U/L 26 U/L Alanine Aminotransferase (ALT/SGPT) 39 U/L 37 U/L Alkaline Phosphatase 43 U/L 42 U/L Total Protein 6.7 g/dL 6.7 g/dL Albumin 2.5 g/dL 2.5 g/dL Globulin 4.2 4.2 Albumin/Globulin Ratio 0.595 0.595 Blood Gas Sample Site RT RADIAL ARTERY RT RADIAL ARTERY Blood Gas pH 7.459 7.405 Blood Gas PCO2 31.9 mmHg 41.1 mmHg Blood Gas PO2 86.7 mmHg 82.5 mmHg Blood Gas HCO3 22.1 mmol/L 25.2 mmol/L Blood Gas Base Excess -0.8 mmol/L 0.4 mmol/L Lucas Test POSITIVE POSITIVE Arterial Blood Oxygen Saturation 96.2 % 95.5 % Deoxyhemoglobin 3.8 % 4.5 % Carboxyhemoglobin 0.1 % 0.6 % Methemoglobin 0.1 % 0.3 % Total Hemoglobin 14.8 % 14.6 % Total Oxygen Concentration 20.0 % 19.5 % Blood Gas Temperature 37.0 37 Oxygen Delivery Method (LAB) BIPAP BIPAP15/[address] FiO2 80 % 99 % Total Carbon Dioxide 23.1 mmol/L 26.4 mmol/L Neutrophils (%) (Auto) 82.9 % Lymphocytes (%) (Auto) 11.7 % Monocytes (%) (Auto) 5.4 % Neutrophils # (Auto) 6.3 10^3/uL Lymphocytes # (Auto) 0.89 10^3/uL1 Monocytes # (Auto) 0.4 10^3/uL Absolute Immature Granulocyte (auto 0.12 10^3 u/L Absolute Eosinophils (auto) 0.0 10^3/uL Immature Granulocytes % 1.60 % Eosinophils % 0.0 % Basophils % 0.0 % Basophils # 0.0 10^3/uL Current Medications Medications (Trade) Dose Ordered Sig/Davon PRN Reason Start Time Stop Time Status Last Admin Acetaminophen (Tylenol) 650 mg Q6HR PRN PAIN 1 - 3 04/30/21 18:00 05/02/21 18:00 05/01/21 06:28 Remdesivir 100 mg/ Sodium Chloride 120 ml @ 111.111 mls/hr Q24HRS 04/29/21 20:00 05/02/21 21:05 05/01/21 20:50 LEVEL 1 SEPSIS INFECTION CRITE: ABX Therapy, Flu-Pneumonia LEVEL 2-SIRS (LIST ALL THAT AP: RR>20/min, HR>90/min Cardiovascular Evidence: Not Assessed or None Hematologic Evidence: None/Not assessed Hepatic Evidence: None/Not assessed Metabolic Evidence: None/Not assessed Neurological Evidence: None/Not assessed Respiratory Evidence: Acute Resp failure, Need for O2 to keep>90%, O2 SAT<90room air Renal Evidence: None/Not assessed O2 Sat by Pulse Oximetry: 98 Respiratory End-tidal CO2: 49 Oxygen Flow Rate: 24.00 Assessment/Plan Assessment/Plan Assessment/Plan 1) Acute Hypoxemic Respiratory Failure / Severe ARDS: Pt remains intubated (since 05/06/21) and sedated at this time. On Tv320, RR 35, Peep 16, FiO2 100% ABG 7.32/75/77/38 will dec to FiO2 90% 2) COVID-19 +: Pt has completed Tx with Remdesivir, and remains on Dexameth asone for now. She would benefit from ECMO and/or lung transplant evaluation. However, due to the Pandemic and COVID surge, no beds are available for transfer to a Higher Level of Care in [place], [place], or [place] at this time. She still remains on the "wait list" for several facilities, we are con't to prone the pt as needed daily for 6 hours, if O2 sat >90% in supine position consider stopping NMBA. 3) Remains febrile and her Midline was removed and tip cultured. Vancomycin and Cefepime started ID consult. Repeat procalcitonin 0.17 4) Hyperglycemia: Exacerbated by Steroids and TF. HgbA1c is 6.5. 5) started on TPN but will try to restart TF's and con't supine and prone (guideline suggest pt's can be fed enterally in the prone position) 6) GI and DVT prophylaxis: Will continue Pepcid and Lovenox-full dose. BNP is only mildly elevated at 226 heart failure unlikely to be contributing to patient's presentation at this time her oxygen is slightly improved today and we will decrease her FiO2 to 90% We will also get repeat COVID-19 testing to consider removing COVID-19 precautions as patient tested positive over 3 weeks ago Plan JC HAYES MD May 17, 2021 11:06
[2021-05-17] MEDS ORDERED: KCL 20MEQ/100ML 100 ML IV SCH (11:30)
[2021-05-17] MEDS ORDERED: MAGNESIUM SULFATE 50 ML IV ONE (11:30)
--- NOTE | 2021-05-17 11:30 | NUR ---
REPOSITIONED TO SUPINE POSITION FROM PRONE PATIENT TOLERATED WELL.
[2021-05-17] MEDS ORDERED: LANTUS SQ ONE (13:00)
[2021-05-17] MEDS: COLACE NG SCH ×2 (13:44→20:34)
[2021-05-17] MEDS: OFIRMEV IV PRN (15:44)
[2021-05-17] MEDS ORDERED: KCL 20MEQ/100ML 200 ML IV SCH (19:30)
[2021-05-17] MEDS: INFUVITE ADULT IV SCH (23:24)
[2021-05-17] MEDS: CLINIMIX IV SCH (23:24)
[2021-05-17] MEDS: LEVOPHED 8 MG in NS 250ML 250 ML IV SCH (23:24)
[2021-05-17] MEDS: VERSED IV SCH (23:25)
[2021-05-18] VITALS (98 sets, daily range): BP systolic 84–165; BP diastolic 36–83
[2021-05-18] MEDS: VANCOMYCIN HCL 1.5 GM in NS 250ML 300 ML IV SCH ×3 (01:00→18:28)
[2021-05-18] MEDS: OFIRMEV IV PRN (01:10)
[2021-05-18 05:30] LABS: ABG PCO2 65.3 mmHg (35.0-45.0); ABG PH 7.327 (7.350-7.450); HCO3act 33.4 mmol/L (22.0-26.0)
[2021-05-18] MEDS: DILAUDID IV PRN ×2 (07:05→13:28)
[2021-05-18] MEDS: NORCURON IV PRN (07:06)
--- NOTE | 2021-05-18 07:40 | DIREP ---
PROCEDURE:CHEST 1 VIEW COMPARISON:[facility] [place], [place], XRAY CHEST SINGLE VW, 05/15/2021, 06:55 AM. INDICATIONS:pneumonia FINDINGS: Portable frontal view of the chest is provided. LUNGS/PLEURA:Multifocal bilateral ground-glass infiltrates, increased today CARDIAC/MEDIASTINUM:The cardiomediastinal silhouette is stable. LINES: Endotracheal tube:Stable Enteric tube: The distal tip projects at the GE junction. This should be advanced Central line:Stable left central line Other:Overlying precordial cardiac monitoring leads. CONCLUSION: Increasing bilateral pneumonia. Advancement of the NG tube is recommended. Dictated by: Jamin Jennings M.D. on 05/18/2021 at 07:38 AM
[2021-05-18] MEDS: PRECEDEX 400 MCG/100 ML INJECT 100 ML IV SCH ×4 (07:51→18:28)
[2021-05-18 08:36] LABS: BASOPHIL % 0.1 % (0.0-0.2); EOSINOPHIL # 0.4 10^3/uL (0.0-0.2); EOSINOPHIL % 2.8 % (0.0-5.0); LYMPHOCYTES # 2.19 10^3/uL1 (1.0-4.8); LYMPHOCYTES % 14.1 % (24.0-44.0); MONOCYTES # 0.4 10^3/uL (0.3-0.8); MONOCYTES % 2.3 % (5.0-12.0); NEUTROPHIL # 12.2 10^3/uL (1.8-7.7); NEUTROPHILS % 78.5 % (41.0-85.0); PLATELET COUNT 202 10^3/uL (150-400); RED CELL DISTRIBUTION WIDTH 12.6 % (11.5-14.5)
[2021-05-18 08:47] LABS: CALCIUM 8.2 mg/dL (8.4-10.5); CARBON DIOXIDE 37.8 mmol/L (20.0-32)
[2021-05-18] MEDS: MAXIPIME 2 GM in NS 100ML 100 ML IV SCH ×2 (09:00→21:00)
[2021-05-18] MEDS: DEXAMETHASONE 10 MG/ML VIAL IV SCH (09:00)
--- NOTE | 2021-05-18 09:23 | TELE.CONS ---
Consultation Reason for Consult: Reason for Consultation: resp failure, ARDS Review of Systems Allergies: Coded Allergies: ibuprofen (Verified Allergy, Unknown, 04/29/21) naproxen (Verified Allergy, Unknown, 04/29/21) VITALS REVIEW VITALS Vital Sign - Last 24 Hours 05/18/21 05/18/21 08:49 09:00 Pulse 93 93 Resp 35 35 Pulse Ox 94 94 O2 Delivery Mechanical Ventilator FiO2 70 LABS LAB RESULTS Laboratory Tests Test 04/29/21 04:35 04/30/21 04:28 05/01/21 04:32 05/01/21 11:20 White Blood Count 6.2 10^3/uL 6.4 10^3/uL 10.2 10^3/uL Red Blood Count 4.64 10^6/uL 4.49 10^6/uL 4.50 10^6/uL Hemoglobin 13.5 g/dL 13.3 g/dL 13.3 g/dL Hematocrit 41.2 % 39.3 % 39.6 % Mean Corpuscular Volume 88.8 fL 87.5 fL 88.0 fL Mean Corpuscular Hemoglobin 29.1 pg 29.6 pg 29.6 pg Mean Corpuscular Hemoglobin Concent 32.8 g/dL 33.8 g/dL 33.6 g/dL Red Cell Distribution Width 12.5 % 12.1 % 12.1 % Platelet Count 162 10^3/uL 195 10^3/uL 234 10^3/uL Mean Platelet Volume 10.9 fL 10.8 fL 10.4 fL Neutrophils (%) (Auto) 72.3 % 70.8 % Lymphocytes (%) (Auto) 19.0 % 20.6 % Monocytes (%) (Auto) 8.4 % 8.4 % Neutrophils # (Auto) 4.5 10^3/uL 4.5 10^3/uL Lymphocytes # (Auto) 1.17 10^3/uL1 1.32 10^3/uL1 Monocytes # (Auto) 0.5 10^3/uL 0.5 10^3/uL Absolute Immature Granulocyte (auto 0.02 10^3 u/L 0.04 10^3 u/L Absolute Eosinophils (auto) 0.0 10^3/uL 0.0 10^3/uL Immature Granulocytes % 0.30 % 0.60 % Eosinophils % 0.0 % 0.0 % Basophils % 0.0 % 0.2 % Basophils # 0.0 10^3/uL 0.0 10^3/uL Sodium Level 141 mmol/L 142 mmol/L 139 mmol/L Potassium Level 4.0 mmol/L 3.9 mmol/L 3.9 mmol/L Chloride Level 106.0 mmol/L 106.0 mmol/L 105.0 mmol/L Carbon Dioxide Level 25.2 mmol/L 26.2 mmol/L 26.8 mmol/L Anion Gap 13.8 13.7 11.1 Blood Urea Nitrogen 12 mg/dL 17 mg/dL 12 mg/dL Creatinine 0.65 mg/dL 0.54 mg/dL 0.56 mg/dL Estimated GFR () 124.8 154.6 148.2 Est GFR (CKD-EPI)(Non-Afr Niuean) 103.1 127.7 122.5 BUN/Creatinine Ratio 18.0 31.0 21.0 Glucose Level 98 mg/dL 92 mg/dL 87 mg/dL Calcium Level 8.6 mg/dL 8.4 mg/dL 8.8 mg/dL Total Bilirubin 0.5 mg/dL 0.5 mg/dL 0.5 mg/dL Aspartate Amino Transf (AST/SGOT) 42 U/L 40 U/L 36 U/L Alanine Aminotransferase (ALT/SGPT) 47 U/L 42 U/L 39 U/L Alkaline Phosphatase 47 U/L 43 U/L 43 U/L Total Protein 6.6 g/dL 6.6 g/dL 6.7 g/dL Albumin 2.6 g/dL 2.5 g/dL 2.5 g/dL Globulin 4.0 4.1 4.2 Albumin/Globulin Ratio 0.650 0.609 0.595 Serum HCG, Qualitative NEGATIVE Blood Gas Sample Site RT RADIAL ARTERY Blood Gas pH 7.459 Blood Gas PCO2 31.9 mmHg Blood Gas PO2 86.7 mmHg Blood Gas HCO3 22.1 mmol/L Blood Gas Base Excess -0.8 mmol/L Lucas Test POSITIVE Arterial Blood Oxygen Saturation 96.2 % Deoxyhemoglobin 3.8 % Carboxyhemoglobin 0.1 % Methemoglobin 0.1 % Total Hemoglobin 14.8 % Total Oxygen Concentration 20.0 % Blood Gas Temperature 37.0 Oxygen Delivery Method (LAB) BIPAP Blood Gas Vent Mode ST FiO2 80 % Total Carbon Dioxide 23.1 mmol/L Test 05/02/21 06:37 05/02/21 08:25 05/03/21 05:20 05/03/21 07:55 White Blood Count 7.6 10^3/uL 12.0 10^3/uL Red Blood Count 4.62 10^6/uL 4.71 10^6/uL Hemoglobin 13.6 g/dL 13.6 g/dL Hematocrit 40.6 % 41.1 % Mean Corpuscular Volume 87.9 fL 87.3 fL Mean Corpuscular Hemoglobin 29.4 pg 28.9 pg Mean Corpuscular Hemoglobin Concent 33.5 g/dL 33.1 g/dL Red Cell Distribution Width 12.0 % 11.9 % Platelet Count 268 10^3/uL 338 10^3/uL Mean Platelet Volume 10.5 fL 10.2 fL Neutrophils (%) (Auto) 82.9 % 83.2 % Lymphocytes (%) (Auto) 11.7 % 10.3 % Monocytes (%) (Auto) 5.4 % 5.1 % Neutrophils # (Auto) 6.3 10^3/uL 10.0 10^3/uL Lymphocytes # (Auto) 0.89 10^3/uL1 1.24 10^3/uL1 Monocytes # (Auto) 0.4 10^3/uL 0.6 10^3/uL Absolute Immature Granulocyte (auto 0.12 10^3 u/L 0.14 10^3 u/L Absolute Eosinophils (auto) 0.0 10^3/uL 0.0 10^3/uL Immature Granulocytes % 1.60 % 1.20 % Eosinophils % 0.0 % 0.1 % Basophils % 0.0 % 0.1 % Basophils # 0.0 10^3/uL 0.0 10^3/uL Sodium Level 140 mmol/L 140 mmol/L Potassium Level 4.7 mmol/L 4.3 mmol/L Chloride Level 104.0 mmol/L 103.0 mmol/L Carbon Dioxide Level 27.6 mmol/L 28.1 mmol/L Anion Gap 13.1 13.2 Blood Urea Nitrogen 14 mg/dL 18 mg/dL Creatinine 0.62 mg/dL 0.65 mg/dL Estimated GFR () 131.8 124.8 Est GFR (CKD-EPI)(Non-Afr Ni[place]an) 108.9 103.1 BUN/Creatinine Ratio 22.0 27.0 Glucose Level 121 mg/dL 107 mg/dL Calcium Level 8.8 mg/dL 8.9 mg/dL Total Bilirubin 0.4 mg/dL 0.6 mg/dL Aspartate Amino Transf (AST/SGOT) 26 U/L 26 U/L Alanine Aminotransferase (ALT/SGPT) 37 U/L 31 U/L Alkaline Phosphatase 42 U/L 41 U/L Total Protein 6.7 g/dL 6.8 g/dL Albumin 2.5 g/dL 2.6 g/dL Globulin 4.2 4.2 Albumin/Globulin Ratio 0.595 0.619 Blood Gas Sample Site RT RADIAL ARTERY LEFT RADIAL ARTERY Blood Gas pH 7.405 7.416 Blood Gas PCO2 41.1 mmHg 37.1 mmHg Blood Gas PO2 82.5 mmHg 149.3 mmHg Blood Gas HCO3 25.2 mmol/L 23.3 mmol/L Blood Gas Base Excess 0.4 mmol/L -0.8 mmol/L Lucas Test POSITIVE POSITIVE Arterial Blood Oxygen Saturation 95.5 % 98.7 % Deoxyhemoglobin 4.5 % 1.3 % Carboxyhemoglobin 0.6 % 0.4 % Methemoglobin 0.3 % 0.5 % Total Hemoglobin 14.6 % 14.5 % Total Oxygen Concentration 19.5 % 20.2 % Blood Gas Temperature 37 37.00 Oxygen Delivery Method (LAB) BIPAP15/7 BP 15/7 FiO2 99 % 100 % Total Carbon Dioxide 26.4 mmol/L 24.4 mmol/L Blood Gas Vent Mode S/T Test 05/03/21 10:10 05/04/21 10:08 05/05/21 05:08 05/06/21 04:30 D-Dimer 1.21 mg/L 5.32 mg/L Ferritin 697 ng/mL 724 ng/mL Lactate Dehydrogenase 329 U/L White Blood Count 17.0 10^3/uL 14.0 10^3/uL 15.9 10^3/uL Red Blood Count 4.46 10^6/uL 4.70 10^6/uL 4.43 10^6/uL Hemoglobin 12.9 g/dL 13.7 g/dL 13.2 g/dL Hematocrit 38.9 % 41.0 % 39.1 % Mean Corpuscular Volume 87.2 fL 87.2 fL 88.3 fL Mean Corpuscular Hemoglobin 28.9 pg 29.1 pg 29.8 pg Mean Corpuscular Hemoglobin Concent 33.2 g/dL 33.4 g/dL 33.8 g/dL Red Cell Distribution Width 11.8 % 11.9 % 12.0 % Platelet Count 334 10^3/uL 309 10^3/uL 290 10^3/uL Mean Platelet Volume 10.0 fL 9.8 fL 9.8 fL Neutrophils (%) (Auto) 90.6 % 88.5 % 87.7 % Lymphocytes (%) (Auto) 4.4 % 7.5 % 8.3 % Monocytes (%) (Auto) 3.9 % 3.3 % 3.5 % Neutrophils # (Auto) 15.4 10^3/uL 12.3 10^3/uL 13.9 10^3/uL Lymphocytes # (Auto) 0.75 10^3/uL1 1.05 10^3/uL1 1.32 10^3/uL1 Monocytes # (Auto) 0.7 10^3/uL 0.5 10^3/uL 0.6 10^3/uL Absolute Immature Granulocyte (auto 0.16 10^3 u/L 0.19 10^3 u/L 0.16 10^3 u/L Absolute Eosinophils (auto) 0.0 10^3/uL 0.1 10^3/uL 0.1 10^3/uL Immature Granulocytes % 0.90 % 1.40 % 1.00 % Eosinophils % 0.1 % 0.6 % 0.4 % Basophils % 0.1 % 0.1 % 0.1 % Basophils # 0.0 10^3/uL 0.0 10^3/uL 0.0 10^3/uL Sodium Level 135 mmol/L 137 mmol/L 138 mmol/L Potassium Level 3.9 mmol/L 3.6 mmol/L 3.8 mmol/L Chloride Level 102.0 mmol/L 102.0 mmol/L 103.0 mmol/L Carbon Dioxide Level 25.7 mmol/L 26.8 mmol/L 27.1 mmol/L Anion Gap 11.2 11.8 11.7 Blood Urea Nitrogen 20 mg/dL 13 mg/dL 14 mg/dL Creatinine 0.75 mg/dL 0.62 mg/dL 0.66 mg/dL Estimated GFR () 105.8 131.8 122.6 Est GFR (CKD-EPI)(Non-Afr [place]an) 87.4 108.9 101.3 BUN/Creatinine Ratio 26.0 20.0 21.0 Glucose Level 135 mg/dL 86 mg/dL 96 mg/dL Calcium Level 8.8 mg/dL 8.8 mg/dL 8.8 mg/dL Total Bilirubin 0.8 mg/dL 0.8 mg/dL 0.9 mg/dL Aspartate Amino Transf (AST/SGOT) 33 U/L 35 U/L 30 U/L Alanine Aminotransferase (ALT/SGPT) 34 U/L 34 U/L 39 U/L Alkaline Phosphatase 43 U/L 41 U/L 49 U/L Total Protein 6.8 g/dL 6.7 g/dL 6.9 g/dL Albumin 2.5 g/dL 2.4 g/dL 2.4 g/dL Globulin 4.3 4.3 4.5 Albumin/Globulin Ratio 0.581 0.558 0.533 Test 05/06/21 07:27 05/06/21 19:40 05/06/21 21:55 05/07/21 04:13 Blood Gas Sample Site RT BRACIAL ARTERY LEFT RADIAL ARTERY RT RADIAL ARTERY Blood Gas pH 7.452 7.478 7.473 Blood Gas PCO2 35.8 mmHg 40.1 mmHg 36.9 mmHg Blood Gas PO2 45.9 mmHg 54.5 mmHg 38.1 mmHg Blood Gas HCO3 24.4 mmol/L 29.1 mmol/L 26.4 mmol/L Blood Gas Base Excess 0.8 mmol/L 5.2 mmol/L 2.9 mmol/L Lucas Test N/A POSITIVE POSITIVE Arterial Blood Oxygen Saturation 82.3 % 87.3 % 71.2 % Deoxyhemoglobin 17.6 % 12.5 % 28.5 % Carboxyhemoglobin 0.2 % 0.9 % 0.7 % Methemoglobin 0.2 % 0.4 % 0.4 % Total Hemoglobin 13.5 % 13.5 % 13.2 % Total Oxygen Concentration 15.5 % 16.3 % 13.0 % Oxygen Delivery Method (LAB) CF 50LPM BIPAP 15/7 VENT FiO2 100 % 100 % 100 % Total Carbon Dioxide 25.5 mmol/L 30.3 mmol/L 27.6 mmol/L Blood Gas Temperature 37 37 Blood Gas Vent Mode AC Blood Gas Vent Rate 14 Blood Gas Tidal Volume 400 ML Blood Gas PEEP 12 CMH2O White Blood Count 16.3 10^3/uL Red Blood Count 4.35 10^6/uL Hemoglobin 12.8 g/dL Hematocrit 38.4 % Mean Corpuscular Volume 88.3 fL Mean Corpuscular Hemoglobin 29.4 pg Mean Corpuscular Hemoglobin Concent 33.3 g/dL Red Cell Distribution Width 12.0 % Platelet Count 268 10^3/uL Mean Platelet Volume 9.9 fL Neutrophils (%) (Auto) 89.4 % Lymphocytes (%) (Auto) 6.1 % Monocytes (%) (Auto) 4.3 % Neutrophils # (Auto) 14.6 10^3/uL Lymphocytes # (Auto) 0.99 10^3/uL1 Monocytes # (Auto) 0.7 10^3/uL Absolute Immature Granulocyte (auto 0.14 10^3 u/L Absolute Eosinophils (auto) 0.0 10^3/uL Immature Granulocytes % 0.90 % Eosinophils % 0.1 % Basophils % 0.1 % Basophils # 0.0 10^3/uL Sodium Level 141 mmol/L Potassium Level 4.3 mmol/L Chloride Level 105.0 mmol/L Carbon Dioxide Level 29.2 mmol/L Anion Gap 11.1 Blood Urea Nitrogen 15 mg/dL Creatinine 0.68 mg/dL Estimated GFR () 118.5 Est GFR (CKD-EPI)(Non-Afr Ni[place]an) 97.9 BUN/Creatinine Ratio 22.0 Glucose Level 108 mg/dL Calcium Level 9.0 mg/dL Total Bilirubin 0.7 mg/dL Aspartate Amino Transf (AST/SGOT) 27 U/L Alanine Aminotransferase (ALT/SGPT) 39 U/L Alkaline Phosphatase 50 U/L Total Protein 6.8 g/dL Albumin 2.2 g/dL Globulin 4.6 Albumin/Globulin Ratio 0.478 Procalcitonin 0.08 ng/mL Test 05/07/21 05:02 05/07/21 06:35 05/07/21 18:09 05/08/21 00:56 Differential Total Cells Counted 100 #CELLS Segmented Neutrophils 85 % Lymphocytes 12 % Monocytes 3 % Platelet Estimate ADEQUATE Platelet Morphology NORMAL Blood Gas Sample Site RT RADIAL ARTERY Blood Gas pH 7.338 Blood Gas PCO2 48.1 mmHg Blood Gas PO2 51.4 mmHg Blood Gas HCO3 25.3 mmol/L Blood Gas Base Excess -1.0 mmol/L Lucas Test POSITIVE Arterial Blood Oxygen Saturation 82.7 % Deoxyhemoglobin 17.2 % Carboxyhemoglobin 0.4 % Methemoglobin 0.1 % Total Hemoglobin 14.5 % Total Oxygen Concentration 16.7 % Blood Gas Temperature 37 Oxygen Delivery Method (LAB) VENT Blood Gas Vent Mode AC Blood Gas Vent Rate 14 FiO2 100 % Blood Gas Tidal Volume 400 ML Blood Gas PEEP 12 CMH2O Total Carbon Dioxide 26.7 mmol/L Bedside Glucose 157 147 Test 05/08/21 04:28 05/08/21 05:50 05/08/21 17:50 05/08/21 23:51 White Blood Count 17.7 10^3/uL Red Blood Count 4.52 10^6/uL Hemoglobin 13.2 g/dL Hematocrit 41.6 % Mean Corpuscular Volume 92.0 fL Mean Corpuscular Hemoglobin 29.2 pg Mean Corpuscular Hemoglobin Concent 31.7 g/dL Red Cell Distribution Width 12.5 % Platelet Count 291 10^3/uL Mean Platelet Volume 10.2 fL Neutrophils (%) (Auto) 93.7 % Lymphocytes (%) (Auto) 4.5 % Monocytes (%) (Auto) 1.8 % Neutrophils # (Auto) 16.6 10^3/uL Lymphocytes # (Auto) 0.79 10^3/uL1 Monocytes # (Auto) 0.3 10^3/uL Absolute Immature Granulocyte (auto 0.11 10^3 u/L Absolute Eosinophils (auto) 0.0 10^3/uL Immature Granulocytes % 0.60 % Eosinophils % 0.0 % Basophils % 0.0 % Basophils # 0.0 10^3/uL Sodium Level 147 mmol/L Potassium Level 4.1 mmol/L Chloride Level 109.0 mmol/L Carbon Dioxide Level 30.6 mmol/L Anion Gap 11.5 Blood Urea Nitrogen 18 mg/dL Creatinine 0.65 mg/dL Estimated GFR () 124.8 Est GFR (CKD-EPI)(Non-Afr Ni[place]an) 103.1 BUN/Creatinine Ratio 27.0 Glucose Level 145 mg/dL Calcium Level 9.2 mg/dL Total Bilirubin 0.6 mg/dL Aspartate Amino Transf (AST/SGOT) 41 U/L Alanine Aminotransferase (ALT/SGPT) 68 U/L Alkaline Phosphatase 67 U/L Total Protein 7.1 g/dL Albumin 2.3 g/dL Globulin 4.8 Albumin/Globulin Ratio 0.479 Blood Gas Sample Site LEFT RADIAL ARTERY Blood Gas pH 7.365 Blood Gas PCO2 53.4 mmHg Blood Gas PO2 48.1 mmHg Blood Gas HCO3 29.8 mmol/L Blood Gas Base Excess 3.1 mmol/L Lucas Test POSITIVE Arterial Blood Oxygen Saturation 79.8 % Deoxyhemoglobin 20.0 % Carboxyhemoglobin 0.6 % Methemoglobin 0.4 % Total Hemoglobin 15.4 % Total Oxygen Concentration 17.1 % FiO2 100 % Blood Gas PEEP 12.0 CMH2O Total Carbon Dioxide 31.5 mmol/L Bedside Glucose 142 131 Test 05/09/21 04:20 05/09/21 07:35 05/09/21 18:10 05/09/21 20:10 White Blood Count 22.5 10^3/uL Red Blood Count 4.39 10^6/uL Hemoglobin 13.0 g/dL Hematocrit 40.7 % Mean Corpuscular Volume 92.7 fL Mean Corpuscular Hemoglobin 29.6 pg Mean Corpuscular Hemoglobin Concent 31.9 g/dL Red Cell Distribution Width 12.6 % Platelet Count 330 10^3/uL Mean Platelet Volume 10.1 fL Neutrophils (%) (Auto) 92.6 % Lymphocytes (%) (Auto) 4.1 % Monocytes (%) (Auto) 3.3 % Neutrophils # (Auto) 20.8 10^3/uL Lymphocytes # (Auto) 0.92 10^3/uL1 Monocytes # (Auto) 0.8 10^3/uL Absolute Immature Granulocyte (auto 0.10 10^3 u/L Absolute Eosinophils (auto) 0.0 10^3/uL Immature Granulocytes % 0.40 % Eosinophils % 0.0 % Basophils % 0.0 % Basophils # 0.0 10^3/uL Sodium Level 148 mmol/L Potassium Level 4.2 mmol/L Chloride Level 109.0 mmol/L Carbon Dioxide Level 30.9 mmol/L Anion Gap 12.3 Blood Urea Nitrogen 18 mg/dL Creatinine 0.65 mg/dL Estimated GFR () 124.8 Est GFR (CKD-EPI)(Non-Afr Ni[place]an) 103.1 BUN/Creatinine Ratio 27.0 Glucose Level 142 mg/dL Calcium Level 8.6 mg/dL Total Bilirubin 0.8 mg/dL Aspartate Amino Transf (AST/SGOT) 38 U/L Alanine Aminotransferase (ALT/SGPT) 55 U/L Alkaline Phosphatase 70 U/L Total Protein 6.9 g/dL Albumin 2.1 g/dL Globulin 4.8 Albumin/Globulin Ratio 0.437 Procalcitonin 0.06 ng/mL Blood Gas Sample Site RT BRACIAL ARTERY RT BRACIAL ARTERY Blood Gas pH 7.387 7.426 Blood Gas PCO2 48.3 mmHg 46.7 mmHg Blood Gas PO2 57.0 mmHg 49.5 mmHg Blood Gas HCO3 28.4 mmol/L 30.0 mmol/L Blood Gas Base Excess 2.6 mmol/L 4.8 mmol/L Lucas Test POSITIVE POSITIVE Arterial Blood Oxygen Saturation 88.1 % 83.6 % Deoxyhemoglobin 11.9 % 16.2 % Carboxyhemoglobin 0.1 % 0.9 % Methemoglobin 0.1 % 0.5 % Total Hemoglobin 13.6 % 13.9 % Total Oxygen Concentration 16.8 % 16.1 % Blood Gas Temperature 37 37 Oxygen Delivery Method (LAB) VENT VENT Blood Gas Vent Mode AC AC Blood Gas Vent Rate 14 22 FiO2 100 % 100 % Blood Gas Tidal Volume 400 ML 320 ML Blood Gas PEEP 12 CMH2O 12 CMH2O Total Carbon Dioxide 29.9 mmol/L 31.5 mmol/L Bedside Glucose 118 Test 05/09/21 23:58 05/10/21 05:00 05/10/21 05:20 05/10/21 05:44 Bedside Glucose 113 Blood Gas Sample Site LEFT RADIAL ARTERY Blood Gas pH 7.365 Blood Gas PCO2 56.9 mmHg Blood Gas PO2 54.0 mmHg Blood Gas HCO3 31.8 mmol/L Blood Gas Base Excess 5.0 mmol/L Lucas Test POSITIVE Arterial Blood Oxygen Saturation 84.6 % Deoxyhemoglobin 15.2 % Carboxyhemoglobin 0.7 % Methemoglobin 0.3 % Total Hemoglobin 12.6 % Total Oxygen Concentration 14.8 % Blood Gas Temperature 37.0 Oxygen Delivery Method (LAB) VENTILATOR Blood Gas Vent Mode AC+ Blood Gas Vent Rate 28 FiO2 100 % Blood Gas Tidal Volume 320 ML Blood Gas PEEP 14.0 CMH2O Total Carbon Dioxide 33.5 mmol/L White Blood Count 13.9 10^3/uL Red Blood Count 4.20 10^6/uL Hemoglobin 12.4 g/dL Hematocrit 39.1 % Mean Corpuscular Volume 93.1 fL Mean Corpuscular Hemoglobin 29.5 pg Mean Corpuscular Hemoglobin Concent 31.7 g/dL Red Cell Distribution Width 12.4 % Platelet Count 201 10^3/uL Mean Platelet Volume 10.3 fL Neutrophils (%) (Auto) 93.0 % Lymphocytes (%) (Auto) 4.7 % Monocytes (%) (Auto) 2.3 % Neutrophils # (Auto) 13.0 10^3/uL Lymphocytes # (Auto) 0.65 10^3/uL1 Monocytes # (Auto) 0.3 10^3/uL Absolute Immature Granulocyte (auto 0.05 10^3 u/L Absolute Eosinophils (auto) 0.0 10^3/uL Immature Granulocytes % 0.40 % Eosinophils % 0.0 % Basophils % 0.0 % Basophils # 0.0 10^3/uL Sodium Level 143 mmol/L Potassium Level 4.2 mmol/L Chloride Level 107.0 mmol/L Carbon Dioxide Level 31.5 mmol/L Anion Gap 8.7 Blood Urea Nitrogen 14 mg/dL Creatinine 0.51 mg/dL Estimated GFR () 165.1 Est GFR (CKD-EPI)(Non-Afr Ni[place]an) 136.5 BUN/Creatinine Ratio 27.0 Glucose Level 146 mg/dL Calcium Level 8.7 mg/dL Total Bilirubin 0.6 mg/dL Aspartate Amino Transf (AST/SGOT) 35 U/L Alanine Aminotransferase (ALT/SGPT) 56 U/L Alkaline Phosphatase 61 U/L Total Protein 6.3 g/dL Albumin 2.1 g/dL Globulin 4.2 Albumin/Globulin Ratio 0.500 Triglycerides Level 207 mg/dL Segmented Neutrophils 98 % Lymphocytes 1 % Monocytes 1 % Platelet Estimate ADEQUATE Platelet Morphology NORMAL Test 05/10/21 12:40 05/10/21 17:57 05/11/21 00:01 05/11/21 05:20 Bedside Glucose 136 135 120 White Blood Count 15.3 10^3/uL Red Blood Count 4.32 10^6/uL Hemoglobin 12.8 g/dL Hematocrit 39.8 % Mean Corpuscular Volume 92.1 fL Mean Corpuscular Hemoglobin 29.6 pg Mean Corpuscular Hemoglobin Concent 32.2 g/dL Red Cell Distribution Width 12.2 % Platelet Count 222 10^3/uL Mean Platelet Volume 10.7 fL Neutrophils (%) (Auto) 93.0 % Lymphocytes (%) (Auto) 4.0 % Monocytes (%) (Auto) 3.0 % Neutrophils # (Auto) 14.3 10^3/uL Lymphocytes # (Auto) 0.61 10^3/uL1 Monocytes # (Auto) 0.5 10^3/uL Absolute Immature Granulocyte (auto 0.06 10^3 u/L Absolute Eosinophils (auto) 0.0 10^3/uL Immature Granulocytes % 0.40 % Eosinophils % 0.0 % Basophils % 0.0 % Basophils # 0.0 10^3/uL Sodium Level 145 mmol/L Potassium Level 3.6 mmol/L Chloride Level 105.0 mmol/L Carbon Dioxide Level 35.6 mmol/L Anion Gap 8.0 Blood Urea Nitrogen 18 mg/dL Creatinine 0.59 mg/dL Estimated GFR () 139.6 Est GFR (CKD-EPI)(Non-Afr Ni[place]an) 115.3 BUN/Creatinine Ratio 30.0 Glucose Level 129 mg/dL Calcium Level 8.7 mg/dL Total Bilirubin 0.6 mg/dL Aspartate Amino Transf (AST/SGOT) 37 U/L Alanine Aminotransferase (ALT/SGPT) 54 U/L Alkaline Phosphatase 78 U/L Total Protein 6.5 g/dL Albumin 2.2 g/dL Globulin 4.3 Albumin/Globulin Ratio 0.511 Test 05/11/21 06:03 05/11/21 08:10 05/11/21 12:16 05/11/21 15:51 Segmented Neutrophils 97 % Lymphocytes 1 % Monocytes 2 % Platelet Estimate ADEQUATE Platelet Morphology NORMAL Blood Gas Sample Site LEFT RADIAL ARTERY Blood Gas pH 7.399 Blood Gas PCO2 54.2 mmHg Blood Gas PO2 53.9 mmHg Blood Gas HCO3 32.7 mmol/L Blood Gas Base Excess 6.4 mmol/L Lucas Test POSITIVE Arterial Blood Oxygen Saturation 85.4 % Deoxyhemoglobin 14.5 % Carboxyhemoglobin 0.3 % Methemoglobin 0.2 % Total Hemoglobin 13.5 % Total Oxygen Concentration 16.1 % Blood Gas Temperature 37 Oxygen Delivery Method (LAB) VENTILATOR Blood Gas Vent Mode AC VC+ Blood Gas Vent Rate 26 FiO2 100 % Blood Gas Tidal Volume 320 ML Blood Gas PEEP 14.0 CMH2O Total Carbon Dioxide 34.4 mmol/L Bedside Glucose 114 Urine Collection Type CATH Urine Color YELLOW Urine Appearance CLEAR Urine Bilirubin SMALL Urine Ictotest NEGATIVE Urine Ketones NEGATIVE Urine Specific [place] >=1.030 Urine pH 6.0 Urine Protein TRACE Urine Urobilinogen >=8.0 E.U./dL Urine Nitrate NEGATIVE Urine Leukocyte Esterase NEGATIVE Urine Glucose (Auto)(UA) NEGATIVE Urine Blood NEGATIVE Urine RBC 0-2 RBC/HPF Urine WBC 2-5 WBC/HPF Urine Squamous Epithelial Cells FEW #/HPF Urine Bacteria RARE Test 05/11/21 18:13 05/12/21 03:04 05/12/21 05:00 05/12/21 05:10 Bedside Glucose 119 Blood Gas Sample Site RT RADIAL ARTERY RT RADIAL ARTERY Blood Gas pH 7.232 7.370 Blood Gas PCO2 103.1 mmHg 71.8 mmHg Blood Gas PO2 64.8 mmHg 58.0 mmHg Blood Gas HCO3 42.4 mmol/L 40.6 mmol/L Blood Gas Base Excess 10.7 mmol/L 11.8 mmol/L Lucas Test POSITIVE POSITIVE Arterial Blood Oxygen Saturation 86.7 % 84.5 % Deoxyhemoglobin 13.1 % 15.5 % Carboxyhemoglobin 0.8 % 0.2 % Methemoglobin 0.5 % 0.1 % Total Hemoglobin 13.2 % 13.7 % Total Oxygen Concentration 15.9 % 16.2 % Oxygen Delivery Method (LAB) VENTILATOR VENTILATOR Blood Gas Vent Mode AC+ AC+ Blood Gas Vent Rate 26 32 FiO2 100 % 100 % Blood Gas Tidal Volume 320 ML 320 ML Blood Gas PEEP 14.0 CMH2O 14.0 CMH2O Total Carbon Dioxide 45.6 mmol/L 42.8 mmol/L Blood Gas Temperature 37.0 White Blood Count 13.9 10^3/uL Red Blood Count 4.46 10^6/uL Hemoglobin 12.9 g/dL Hematocrit 41.6 % Mean Corpuscular Volume 93.3 fL Mean Corpuscular Hemoglobin 28.9 pg Mean Corpuscular Hemoglobin Concent 31.0 g/dL Red Cell Distribution Width 12.2 % Platelet Count 197 10^3/uL Mean Platelet Volume 11.1 fL Neutrophils (%) (Auto) 94.4 % Lymphocytes (%) (Auto) 3.0 % Monocytes (%) (Auto) 1.8 % Neutrophils # (Auto) 13.1 10^3/uL Lymphocytes # (Auto) 0.41 10^3/uL1 Monocytes # (Auto) 0.3 10^3/uL Absolute Immature Granulocyte (auto 0.10 10^3 u/L Absolute Eosinophils (auto) 0.0 10^3/uL Immature Granulocytes % 0.70 % Eosinophils % 0.1 % Basophils % 0.0 % Basophils # 0.0 10^3/uL Prothrombin Time 10.8 SEC Prothrombin Time INR (Non-Therap) 1.0 Activated Partial Thromboplast Time 24.7 SEC Sodium Level 148 mmol/L Potassium Level 3.7 mmol/L Chloride Level 105.0 mmol/L Carbon Dioxide Level 39.0 mmol/L Anion Gap 7.7 Blood Urea Nitrogen 22 mg/dL Creatinine 0.51 mg/dL Estimated GFR () 165.1 Est GFR (CKD-EPI)(Non-Afr Ni[place]an) 136.5 BUN/Creatinine Ratio 43.0 Glucose Level 156 mg/dL Hemoglobin A1c 6.5 % Calcium Level 8.7 mg/dL Phosphorus Level 4.3 mg/dL Magnesium Level 2.3 mg/dL Total Bilirubin 0.5 mg/dL Aspartate Amino Transf (AST/SGOT) 38 U/L Alanine Aminotransferase (ALT/SGPT) 60 U/L Alkaline Phosphatase 83 U/L Total Protein 6.7 g/dL Albumin 2.0 g/dL Globulin 4.7 Albumin/Globulin Ratio 0.425 Triglycerides Level 261 mg/dL Test 05/12/21 06:15 05/12/21 12:23 05/12/21 18:25 05/13/21 00:02 Differential Total Cells Counted 100 #CELLS Segmented Neutrophils 95 % Lymphocytes 3 % Monocytes 2 % Platelet Estimate ADEQUATE Platelet Morphology NORMAL Anisocytosis 1+ Bedside Glucose 132 110 170 Test 05/13/21 04:24 05/13/21 04:25 05/13/21 12:22 05/13/21 18:13 White Blood Count 13.3 10^3/uL Red Blood Count 4.23 10^6/uL Hemoglobin 12.6 g/dL Hematocrit 39.6 % Mean Corpuscular Volume 93.6 fL Mean Corpuscular Hemoglobin 29.8 pg Mean Corpuscular Hemoglobin Concent 31.8 g/dL Red Cell Distribution Width 12.1 % Platelet Count 204 10^3/uL Mean Platelet Volume 10.4 fL Neutrophils (%) (Auto) 95.0 % Lymphocytes (%) (Auto) 3.2 % Monocytes (%) (Auto) 1.5 % Neutrophils # (Auto) 12.7 10^3/uL Lymphocytes # (Auto) 0.43 10^3/uL1 Monocytes # (Auto) 0.2 10^3/uL Absolute Immature Granulocyte (auto 0.06 10^3 u/L Absolute Eosinophils (auto) 0.0 10^3/uL Immature Granulocytes % 0.50 % Eosinophils % 0.2 % Basophils % 0.1 % Basophils # 0.0 10^3/uL Sodium Level 147 mmol/L Potassium Level 4.0 mmol/L Chloride Level 105.0 mmol/L Carbon Dioxide Level 38.6 mmol/L Anion Gap 7.4 Blood Urea Nitrogen 20 mg/dL Creatinine 0.49 mg/dL Estimated GFR () 172.9 Est GFR (CKD-EPI)(Non-Afr [place]an) 142.9 BUN/Creatinine Ratio 40.0 Glucose Level 165 mg/dL Calcium Level 8.5 mg/dL Phosphorus Level 2.5 mg/dL Magnesium Level 2.3 mg/dL Total Bilirubin 0.5 mg/dL Aspartate Amino Transf (AST/SGOT) 25 U/L Alanine Aminotransferase (ALT/SGPT) 48 U/L Alkaline Phosphatase 70 U/L Total Protein 6.6 g/dL Albumin 2.1 g/dL Globulin 4.5 Albumin/Globulin Ratio 0.466 Blood Gas Sample Site ART LINE Blood Gas pH 7.389 Blood Gas PCO2 61.8 mmHg Blood Gas PO2 52.5 mmHg Blood Gas HCO3 36.5 mmol/L Blood Gas Base Excess 9.3 mmol/L Arterial Blood Oxygen Saturation 84.4 % Deoxyhemoglobin 15.4 % Carboxyhemoglobin 0.6 % Methemoglobin 0.5 % Total Hemoglobin 13.0 % Total Oxygen Concentration 15.3 % Blood Gas Temperature 37.0 Oxygen Delivery Method (LAB) VENTILATOR Blood Gas Vent Mode AC+ Blood Gas Vent Rate 32 FiO2 100 % Blood Gas Tidal Volume 320 ML Blood Gas PEEP 14.0 CMH2O Total Carbon Dioxide 38.4 mmol/L Triglycerides Level 271 mg/dL Bedside Glucose 147 128 Test 05/14/21 04:30 05/14/21 04:35 05/14/21 12:00 05/14/21 12:10 White Blood Count 16.1 10^3/uL Red Blood Count 4.69 10^6/uL Hemoglobin 13.8 g/dL Hematocrit 44.3 % Mean Corpuscular Volume 94.5 fL Mean Corpuscular Hemoglobin 29.4 pg Mean Corpuscular Hemoglobin Concent 31.2 g/dL Red Cell Distribution Width 12.2 % Platelet Count 253 10^3/uL Mean Platelet Volume 10.9 fL Sodium Level 146 mmol/L Potassium Level 4.1 mmol/L Chloride Level 104.0 mmol/L Carbon Dioxide Level 39.8 mmol/L Anion Gap 6.3 Blood Urea Nitrogen 24 mg/dL Creatinine 0.54 mg/dL Estimated GFR () 154.6 Est GFR (CKD-EPI)(Non-Afr [place]an) 127.7 BUN/Creatinine Ratio 44.0 Glucose Level 131 mg/dL Calcium Level 8.8 mg/dL Total Bilirubin 0.5 mg/dL Aspartate Amino Transf (AST/SGOT) 28 U/L Alanine Aminotransferase (ALT/SGPT) 45 U/L Alkaline Phosphatase 67 U/L Total Protein 7.1 g/dL Albumin 2.4 g/dL Globulin 4.7 Albumin/Globulin Ratio 0.510 Triglycerides Level 314 mg/dL Blood Gas Sample Site ART LINE Blood Gas pH 7.280 Blood Gas PCO2 84.0 mmHg Blood Gas PO2 60.1 mmHg Blood Gas HCO3 38.6 mmol/L Blood Gas Base Excess 8.4 mmol/L Lucas Test N/A Arterial Blood Oxygen Saturation 88.1 % Deoxyhemoglobin 11.8 % Carboxyhemoglobin 0.4 % Methemoglobin 0.3 % Total Hemoglobin 14.0 % Total Oxygen Concentration 17.2 % Blood Gas Temperature 37 Oxygen Delivery Method (LAB) VENT Blood Gas Vent Mode AC/VC Blood Gas Vent Rate 35 FiO2 100 % Blood Gas Tidal Volume 320 ML Blood Gas PEEP 16 CMH2O Total Carbon Dioxide 41.2 mmol/L Bedside Glucose 151 Urine Collection Type UNKNOWN Urine Color YELLOW Urine Appearance CLEAR Urine Bilirubin SMALL Urine Ictotest POSITIVE Urine Ketones 15 mg/dL Urine Specific [place] >=1.030 Urine pH 5.5 Urine Protein NEGATIVE Urine Urobilinogen 2.0 E.U./dL Urine Nitrate NEGATIVE Urine Leukocyte Esterase NEGATIVE Urine Glucose (Auto)(UA) NEGATIVE Urine Blood NEGATIVE Nasal Adenovirus (PCR) NotDetected Nasal Coronavirus Type 229E (PCR) NotDetected Nasal Coronavirus Type HKU1 (PCR) NotDetected Nasal Coronavirus Type NL63 (PCR) NotDetected Nasal Coronavirus Type OC43 (PCR) NotDetected Nasal Enterovirus/Rhinovirus (PCR) NotDetected Nasal Influenza Type A (H1) (PCR) NotDetected Nasal Influenza Type A (H3) (PCR) NotDetected Nasal Swab Influenza Virus B (PCR) NotDetected Nasal Parainfluenza Type 1 (PCR) NotDetected Nasal Parainfluenza Type 2 (PCR) NotDetected Nasal Parainfluenza Type 3 (PCR) NotDetected Nasal Parainfluenza Type 4 (PCR) NotDetected Nasal Resp Syncytial Virus (PCR) NotDetected Nasal Bordetella pertussis DNA (PCR NotDetected Nasal Chlamydophila pneumoniae (PCR NotDetected Nasal Human Metapneumovirus (PCR) NotDetected Nasal Mycoplasma pneumoniae (PCR) NotDetected Nasal SARS-CoV-2 (PCR) DETECTED Influenza Type A (H1N1/09) (PCR) NotDetected Test 05/14/21 14:00 05/14/21 18:09 05/15/21 00:00 05/15/21 05:25 Blood Gas Sample Site ART LINE Blood Gas pH 7.386 Blood Gas PCO2 61.1 mmHg Blood Gas PO2 51.9 mmHg Blood Gas HCO3 35.8 mmol/L Blood Gas Base Excess 8.5 mmol/L Lucas Test N/A Arterial Blood Oxygen Saturation 86.5 % Deoxyhemoglobin 13.4 % Carboxyhemoglobin 0.5 % Methemoglobin 0.0 % Total Hemoglobin 14.1 % Total Oxygen Concentration 17.0 % Blood Gas Temperature 37.0 Oxygen Delivery Method (LAB) VENT Blood Gas Vent Mode AC Blood Gas Vent Rate 35 FiO2 100 % Blood Gas Tidal Volume 320 ML Blood Gas PEEP 16.0 CMH2O Total Carbon Dioxide 37.7 mmol/L Bedside Glucose 134 194 White Blood Count 12.1 10^3/uL Red Blood Count 4.22 10^6/uL Hemoglobin 12.3 g/dL Hematocrit 40.1 % Mean Corpuscular Volume 95.0 fL Mean Corpuscular Hemoglobin 29.1 pg Mean Corpuscular Hemoglobin Concent 30.7 g/dL Red Cell Distribution Width 12.8 % Platelet Count 219 10^3/uL Mean Platelet Volume 10.5 fL Neutrophils (%) (Auto) 79.6 % Lymphocytes (%) (Auto) 13.3 % Monocytes (%) (Auto) 4.4 % Neutrophils # (Auto) 9.6 10^3/uL Lymphocytes # (Auto) 1.61 10^3/uL1 Monocytes # (Auto) 0.5 10^3/uL Absolute Immature Granulocyte (auto 0.09 10^3 u/L Absolute Eosinophils (auto) 0.3 10^3/uL Immature Granulocytes % 0.70 % Eosinophils % 2.6 % Basophils % 0.1 % Basophils # 0.0 10^3/uL Sodium Level 144 mmol/L Potassium Level 3.7 mmol/L Chloride Level 105.0 mmol/L Carbon Dioxide Level 37.2 mmol/L Anion Gap 5.5 Blood Urea Nitrogen 31 mg/dL Creatinine 0.52 mg/dL Estimated GFR () 161.4 Est GFR (CKD-EPI)(Non-Afr Niuean) 133.4 BUN/Creatinine Ratio 59.0 Glucose Level 165 mg/dL Calcium Level 8.4 mg/dL Total Bilirubin 0.5 mg/dL Aspartate Amino Transf (AST/SGOT) 28 U/L Alanine Aminotransferase (ALT/SGPT) 39 U/L Alkaline Phosphatase 53 U/L Total Protein 6.5 g/dL Albumin 2.2 g/dL Globulin 4.3 Albumin/Globulin Ratio 0.511 Procalcitonin 0.17 ng/mL Test 05/15/21 05:42 05/15/21 08:18 05/15/21 12:10 05/15/21 17:48 Blood Gas Sample Site ART LINE JUAN Blood Gas pH 7.360 7.320 Blood Gas PCO2 73.1 mmHg 65.0 mmHg Blood Gas PO2 mmHg 59.7 mmHg Blood Gas HCO3 40.4 mmol/L 32.7 mmol/L Blood Gas Base Excess 11.9 mmol/L 4.8 mmol/L Lucas Test N/A POSITIVE Arterial Blood Oxygen Saturation 89.6 % 88.4 % Deoxyhemoglobin 10.3 % 11.5 % Carboxyhemoglobin 1.0 % 0.4 % Methemoglobin 0.3 % 0.2 % Total Hemoglobin 13.1 % 13.1 % Total Oxygen Concentration 16.1 % 16.2 % Oxygen Delivery Method (LAB) VENT FiO2 100 % 100 % Blood Gas PEEP 16.0 CMH2O 16 CMH2O Total Carbon Dioxide 42.6 mmol/L 34.7 mmol/L Blood Gas Vent Mode A/C Blood Gas Vent Rate 35 Blood Gas Tidal Volume 320 ML Bedside Glucose 212 159 Test 05/15/21 23:51 05/16/21 00:00 05/16/21 04:29 05/16/21 04:48 Vancomycin Level Trough 3.7 ug/mL Bedside Glucose 163 Blood Gas Sample Site ART LINE Blood Gas pH 7.325 Blood Gas PCO2 82.9 mmHg Blood Gas PO2 60.7 mmHg Blood Gas HCO3 42.2 mmol/L Blood Gas Base Excess 13.0 mmol/L Lucas Test N/A Arterial Blood Oxygen Saturation 89.7 % Deoxyhemoglobin 10.2 % Carboxyhemoglobin 0.9 % Methemoglobin 0.4 % Total Hemoglobin 11.7 % Total Oxygen Concentration 14.6 % Blood Gas Temperature 37.0 Oxygen Delivery Method (LAB) VENTILATOR Blood Gas Vent Mode AC+ Blood Gas Vent Rate 35 FiO2 100 % Blood Gas Tidal Volume 320 ML Blood Gas PEEP 16.0 CMH2O Total Carbon Dioxide 44.8 mmol/L White Blood Count 10.9 10^3/uL Red Blood Count 3.71 10^6/uL Hemoglobin 11.0 g/dL Hematocrit 35.3 % Mean Corpuscular Volume 95.1 fL Mean Corpuscular Hemoglobin 29.6 pg Mean Corpuscular Hemoglobin Concent 31.2 g/dL Red Cell Distribution Width 12.2 % Platelet Count 173 10^3/uL Mean Platelet Volume 10.8 fL Neutrophils (%) (Auto) 78.7 % Lymphocytes (%) (Auto) 13.2 % Monocytes (%) (Auto) 3.9 % Neutrophils # (Auto) 8.6 10^3/uL Lymphocytes # (Auto) 1.44 10^3/uL1 Monocytes # (Auto) 0.4 10^3/uL Absolute Immature Granulocyte (auto 0.06 10^3 u/L Absolute Eosinophils (auto) 0.5 10^3/uL Immature Granulocytes % 0.60 % Eosinophils % 4.1 % Basophils % 0.1 % Basophils # 0.0 10^3/uL Erythrocyte Sedimentation Rate 70 mm/hr D-Dimer 1.80 mg/L Sodium Level 145 mmol/L Potassium Level 3.2 mmol/L Chloride Level 106.0 mmol/L Carbon Dioxide Level 38.9 mmol/L Anion Gap 3.3 Blood Urea Nitrogen 21 mg/dL Creatinine 0.35 mg/dL Estimated GFR () 254.9 Est GFR (CKD-EPI)(Non-Afr Niuean) 210.7 BUN/Creatinine Ratio 60.0 Glucose Level 172 mg/dL Calcium Level 8.1 mg/dL Total Bilirubin 0.3 mg/dL Aspartate Amino Transf (AST/SGOT) 38 U/L Alanine Aminotransferase (ALT/SGPT) 33 U/L Alkaline Phosphatase 41 U/L Lactate Dehydrogenase 260 U/L C-Reactive Protein 3.48 mg/dL Total Protein 5.8 g/dL Albumin 2.0 g/dL Globulin 3.8 Albumin/Globulin Ratio 0.526 HIV (1&2) Antibody Screen NON-REACTIVE Test 05/16/21 17:43 05/17/21 00:47 05/17/21 05:19 05/17/21 05:25 Bedside Glucose 191 170 Blood Gas Sample Site ART LINE Blood Gas pH 7.328 Blood Gas PCO2 75.8 mmHg Blood Gas PO2 77.7 mmHg Blood Gas HCO3 38.9 mmol/L Blood Gas Base Excess 10.4 mmol/L Lucas Test N/A Arterial Blood Oxygen Saturation 94.2 % Deoxyhemoglobin 5.8 % Carboxyhemoglobin 0.3 % Methemoglobin 0.4 % Total Hemoglobin 11.4 % Total Oxygen Concentration 15.1 % Blood Gas Temperature 37.0 Oxygen Delivery Method (LAB) VENTILATOR Blood Gas Vent Mode AC+ Blood Gas Vent Rate 35 FiO2 100 % Blood Gas Tidal Volume 320 ML Blood Gas PEEP 16.0 CMH2O Total Carbon Dioxide 41.2 mmol/L White Blood Count 12.4 10^3/uL Red Blood Count 3.56 10^6/uL Hemoglobin 10.5 g/dL Hematocrit 33.9 % Mean Corpuscular Volume 95.2 fL Mean Corpuscular Hemoglobin 29.5 pg Mean Corpuscular Hemoglobin Concent 31.0 g/dL Red Cell Distribution Width 12.3 % Platelet Count 191 10^3/uL Mean Platelet Volume 10.8 fL Neutrophils (%) (Auto) 74.8 % Lymphocytes (%) (Auto) 16.8 % Monocytes (%) (Auto) 3.8 % Neutrophils # (Auto) 9.3 10^3/uL Lymphocytes # (Auto) 2.08 10^3/uL1 Monocytes # (Auto) 0.5 10^3/uL Absolute Immature Granulocyte (auto 0.09 10^3 u/L Absolute Eosinophils (auto) 0.6 10^3/uL Immature Granulocytes % 0.70 % Eosinophils % 4.4 % Basophils % 0.2 % Basophils # 0.0 10^3/uL Sodium Level 146 mmol/L Potassium Level 2.9 mmol/L Chloride Level 105.0 mmol/L Carbon Dioxide Level 38.7 mmol/L Anion Gap 5.2 Blood Urea Nitrogen 13 mg/dL Creatinine 0.29 mg/dL Estimated GFR () 316.7 Est GFR (CKD-EPI)(Non-Afr Niuean) 261.8 BUN/Creatinine Ratio 44.0 Glucose Level 198 mg/dL Calcium Level 8.1 mg/dL Magnesium Level 1.6 mg/dL Total Bilirubin 0.3 mg/dL Aspartate Amino Transf (AST/SGOT) 29 U/L Alanine Aminotransferase (ALT/SGPT) 30 U/L Alkaline Phosphatase 50 U/L Pro-B-Type Natriuretic Peptide 227 pg/mL Total Protein 5.6 g/dL Albumin 1.9 g/dL Globulin 3.7 Albumin/Globulin Ratio 0.513 Procalcitonin 0.13 ng/mL Test 05/17/21 08:45 05/17/21 13:12 05/17/21 13:48 05/17/21 18:04 Vancomycin Level Trough 9.6 ug/mL Bedside Glucose 224 183 Nasal Adenovirus (PCR) NotDetected Nasal Coronavirus Type 229E (PCR) NotDetected Nasal Coronavirus Type HKU1 (PCR) NotDetected Nasal Coronavirus Type NL63 (PCR) NotDetected Nasal Coronavirus Type OC43 (PCR) NotDetected Nasal Enterovirus/Rhinovirus (PCR) NotDetected Nasal Influenza Type A (H1) (PCR) NotDetected Nasal Influenza Type A (H3) (PCR) NotDetected Nasal Swab Influenza Virus B (PCR) NotDetected Nasal Parainfluenza Type 1 (PCR) NotDetected Nasal Parainfluenza Type 2 (PCR) NotDetected Nasal Parainfluenza Type 3 (PCR) NotDetected Nasal Parainfluenza Type 4 (PCR) NotDetected Nasal Resp Syncytial Virus (PCR) NotDetected Nasal Bordetella pertussis DNA (PCR NotDetected Nasal Chlamydophila pneumoniae (PCR NotDetected Nasal Human Metapneumovirus (PCR) NotDetected Nasal Mycoplasma pneumoniae (PCR) NotDetected Nasal SARS-CoV-2 (PCR) DETECTED Influenza Type A (H1N1/09) (PCR) NotDetected Test 05/18/21 04:19 05/18/21 05:20 05/18/21 08:20 Bedside Glucose 177 Blood Gas Sample Site ART LINE Blood Gas pH 7.327 Blood Gas PCO2 65.3 mmHg Blood Gas PO2 56.0 mmHg Blood Gas HCO3 33.4 mmol/L Blood Gas Base Excess 6.0 mmol/L Lucas Test N/A Arterial Blood Oxygen Saturation 88.0 % Deoxyhemoglobin 11.9 % Carboxyhemoglobin 0.5 % Methemoglobin 0.3 % Total Hemoglobin 10.2 % Total Oxygen Concentration 12.6 % Blood Gas Temperature 37.0 Oxygen Delivery Method (LAB) VENTILATOR Blood Gas Vent Mode AC+ Blood Gas Vent Rate 35 FiO2 100 % Blood Gas Tidal Volume 320 ML Blood Gas PEEP 16.0 CMH2O Total Carbon Dioxide 35.4 mmol/L White Blood Count 15.6 10^3/uL Red Blood Count 3.65 10^6/uL Hemoglobin 10.6 g/dL Hematocrit 34.9 % Mean Corpuscular Volume 95.6 fL Mean Corpuscular Hemoglobin 29.0 pg Mean Corpuscular Hemoglobin Concent 30.4 g/dL Red Cell Distribution Width 12.6 % Platelet Count 202 10^3/uL Mean Platelet Volume 10.7 fL Neutrophils (%) (Auto) 78.5 % Lymphocytes (%) (Auto) 14.1 % Monocytes (%) (Auto) 2.3 % Neutrophils # (Auto) 12.2 10^3/uL Lymphocytes # (Auto) 2.19 10^3/uL1 Monocytes # (Auto) 0.4 10^3/uL Absolute Immature Granulocyte (auto 0.34 10^3 u/L Absolute Eosinophils (auto) 0.4 10^3/uL Immature Granulocytes % 2.20 % Eosinophils % 2.8 % Basophils % 0.1 % Basophils # 0.0 10^3/uL Sodium Level 143 mmol/L Potassium Level 3.0 mmol/L Chloride Level 104.0 mmol/L Carbon Dioxide Level 37.8 mmol/L Anion Gap 4.2 Blood Urea Nitrogen 18 mg/dL Creatinine 0.30 mg/dL Estimated GFR () 304.6 Est GFR (CKD-EPI)(Non-Afr Niuean) 251.7 BUN/Creatinine Ratio 60.0 Glucose Level 216 mg/dL Calcium Level 8.2 mg/dL Magnesium Level 1.8 mg/dL Total Bilirubin 0.6 mg/dL Aspartate Amino Transf (AST/SGOT) 36 U/L Alanine Aminotransferase (ALT/SGPT) 39 U/L Alkaline Phosphatase 70 U/L Total Protein 6.3 g/dL Albumin 2.0 g/dL Globulin 4.3 Albumin/Globulin Ratio 0.465 Vancomycin Level Trough 14.0 ug/mL Current Medications Medications (Trade) Dose Ordered Sig/Davon Route PRN Reason Start Time Stop Time Status Last Admin Dose Admin Remdesivir 200 mg/ Sodium Chloride 140 ml @ 120.69 mls/ hr OT STAT IV 04/28/21 19:53 04/29/21 08:10 DC 04/28/21 19:53 Remdesivir 100 mg/ Sodium Chloride 120 ml @ 111.111 mls/hr Q24HRS IV 04/29/21 20:00 05/02/21 21:05 DC 05/02/21 20:45 Famotidine (Pepcid) 20 mg BID PO 04/28/21 21:00 05/07/21 09:31 DC 05/06/21 08:14 Sucralfate (Carafate) 1 gm ACHS PO 04/28/21 21:00 05/15/21 07:29 DC 05/12/21 21:00 Enoxaparin Sodium (Lovenox) 40 mg Q24HRS SQ 04/28/21 20:00 05/06/21 08:06 DC 05/05/21 21:00 Sucralfate (Carafate) 1 gm STK-MED ONCE PO 04/28/21 20:56 04/28/21 20:56 DC Lorazepam (Ativan) 1 mg Q4HR PRN IV ANXIETY 04/29/21 00:00 05/12/21 09:13 DC 05/06/21 18:45 Lorazepam (Ativan) 0.5 mg Q4HR PRN IV ANXIETY 04/29/21 00:00 05/06/21 09:00 DC Fentanyl Citrate (Sublimaze) 50 mcg STK-MED ONCE .ROUTE 04/29/21 11:37 04/29/21 11:38 DC Fentanyl Citrate (Sublimaze) 12.5 mcg OT ONCE IV 04/29/21 15:00 04/29/21 15:06 DC 04/29/21 13:35 Acetaminophen (Tylenol) 650 mg Q6HR PRN PO PAIN 1 - 3 04/30/21 18:00 05/02/21 18:00 DC 05/01/21 06:28 Dexmedetomidine HCl 200 mcg/ Sodium Chloride 50 ml @ 0 mls/hr IV 05/01/21 10:30 05/01/21 11:28 DC Sodium Chloride 250 ml @ ud STK-MED ONCE .ROUTE 05/01/21 20:40 05/01/21 20:40 DC Acetaminophen (Tylenol) 650 mg Q6HR PRN PO PAIN 1 - 3 05/02/21 20:30 05/08/21 18:01 DC 05/04/21 21:15 Bisacodyl (Dulcolax Ec Tablet) 5 mg STAT STAT PO 05/03/21 13:45 05/03/21 19:05 DC 05/03/21 14:36 Docusate Sodium (Colace) 100 mg BID PO 05/05/21 09:00 05/07/21 09:30 DC 05/06/21 08:14 Lorazepam (Ativan) 2 mg STK-MED ONCE .ROUTE 05/05/21 02:31 05/05/21 02:31 DC Lorazepam (Ativan) 2 mg STK-MED ONCE .ROUTE 05/05/21 03:46 05/05/21 03:47 DC Furosemide (Lasix) 20 mg OT ONCE IV 05/05/21 11:00 05/05/21 11:01 DC 05/05/21 11:20 Lorazepam (Ativan) 2 mg STK-MED ONCE .ROUTE 05/05/21 20:56 05/05/21 20:56 DC Enoxaparin Sodium (Lovenox) 100 mg Q12H SQ 05/06/21 08:30 06/05/21 08:29 05/17/21 20:30 Furosemide (Lasix) 20 mg STAT STAT IV 05/06/21 08:48 05/06/21 09:00 DC 05/06/21 08:48 Insulin Human Regular (Humulin R) 1 unit STK-MED ONCE .ROUTE 05/06/21 19:13 05/06/21 19:14 DC Propofol (Diprivan) 1,000 mg PRN PRN IV SEDATION 05/06/21 20:30 05/08/21 11:39 DC 05/08/21 04:00 Propofol 100 ml @ ud STK-MED ONCE IV 05/06/21 20:19 05/06/21 20:19 DC Vecuronium [place] (Norcuron) 10 mg STK-MED ONCE .ROUTE 05/06/21 22:24 05/06/21 22:24 DC Vecuronium [place] (Norcuron) 10 mg Q6HR PRN IV SHORTNESS OF BREATH 05/06/21 23:00 05/07/21 00:34 DC Vecuronium [place] (Norcuron) 10 mg Q4 PRN IV SHORTNESS OF BREATH 05/07/21 00:30 05/12/21 00:00 DC 05/11/21 20:00 Vecuronium [place] (Norcuron) 10 mg STK-MED ONCE .ROUTE 05/07/21 00:20 05/07/21 00:34 DC Propofol 100 ml @ ud STK-MED ONCE IV 05/07/21 01:53 05/07/21 01:53 DC Norepinephrine Bitartrate 8 mg/ Sodium Chloride 250 ml @ 0 mls/hr DAILY IV 05/07/21 09:00 05/10/21 16:46 DC 05/09/21 09:00 Fentanyl Citrate (Sublimaze) 100 mcg Q1HR IV 05/07/21 04:00 05/07/21 09:58 DC Piperacillin Sod/ Tazobactam Sod 4.5 gm/Sodium Chloride 100 ml @ 100 mls/hr Q6H IV 05/07/21 04:00 05/12/21 09:15 DC 05/11/21 22:00 Norepinephrine Bitartrate (Levophed) 4 mg STK-MED ONCE .ROUTE 05/07/21 04:38 05/07/21 04:38 DC Sodium Chloride 250 ml @ ud STK-MED ONCE .ROUTE 05/07/21 04:38 05/07/21 04:38 DC Fentanyl Citrate (Sublimaze) 100 mcg Q1HR PRN IV PAIN 7 - 10 05/07/21 06:30 05/12/21 09:13 DC 05/07/21 06:41 Fentanyl Citrate 2000 mcg/Sodium Chloride 200 ml @ 0 mls/hr IV 05/07/21 10:00 05/07/21 17:01 DC 05/07/21 10:30 Famotidine (Pepcid) 20 mg BID IV 05/07/21 09:30 06/06/21 09:29 05/17/21 20:34 Docusate Sodium (Colace) 100 mg BID NG 05/07/21 09:30 06/06/21 09:29 05/17/21 20:34 Propofol (Diprivan) 200 mg STK-MED ONCE IV 05/07/21 08:00 05/07/21 11:57 DC Succinylcholine Chloride (Quelicin) 8 mg STK-MED ONCE IV 05/07/21 08:00 05/07/21 11:57 DC Vecuronium [place] (Norcuron) 10 mg STK-MED ONCE IV 05/07/21 08:00 05/07/21 11:57 DC Propofol 100 ml @ ud STK-MED ONCE IV 05/07/21 14:49 05/07/21 14:50 DC Fentanyl Citrate 5000 mcg/Sodium Chloride 500 ml @ 0 mls/hr IV 05/07/21 18:00 06/06/21 17:59 05/17/21 23:26 Propofol 100 ml @ ud STK-MED ONCE IV 05/07/21 19:08 05/07/21 19:08 DC Propofol 100 ml @ ud STK-MED ONCE IV 05/07/21 23:47 05/07/21 23:47 DC Propofol 100 ml @ ud STK-MED ONCE IV 05/08/21 03:45 05/08/21 03:46 DC Propofol 100 ml @ ud STK-MED ONCE IV 05/08/21 07:33 05/08/21 07:34 DC Propofol 100 ml @ ud STK-MED ONCE IV 05/08/21 11:27 05/08/21 11:27 DC Propofol 100 ml @ 27.6 mls/hr PRN PRN IV SEDATION 05/08/21 12:00 06/07/21 11:59 05/14/21 03:30 Acetaminophen (Tylenol) 650 mg Q6HR PRN RC FEVER 05/08/21 22:00 06/07/21 21:59 05/15/21 23:52 Midazolam HCl 50 mg/Sodium Chloride 50 ml @ 2 mls/hr ONCE IV 05/09/21 14:30 05/10/21 09:50 DC 05/09/21 14:30 Hydromorphone HCl (Dilaudid) 2 mg STK-MED ONCE .ROUTE 05/09/21 20:10 05/09/21 20:10 DC Hydromorphone HCl (Dilaudid) 0.5 mg Q4H PRN IV PAIN 7 - 10 05/09/21 20:00 06/08/21 19:59 05/18/21 07:05 Sodium Chloride 100 ml @ ud STK-MED ONCE IV 05/09/21 21:13 05/09/21 21:13 DC Midazolam HCl 100 mg/Sodium Chloride 100 ml @ 0 mls/hr ONCE IV 05/10/21 10:00 05/10/21 10:01 DC 05/10/21 10:55 Furosemide (Lasix) 20 mg BID IV 05/10/21 10:30 05/10/21 12:38 DC 05/10/21 10:55 Furosemide (Lasix) 20 mg STK-MED ONCE .ROUTE 05/10/21 10:48 05/10/21 10:49 DC Vecuronium [place] (Norcuron) 10 mg Q2H PRN IV ventilator dyssynchrony 05/10/21 11:30 06/09/21 11:29 05/18/21 07:06 Furosemide (Lasix) 20 mg BID IV 05/10/21 12:38 06/09/21 10:29 05/17/21 20:34 Norepinephrine Bitartrate 8 mg/ Sodium Chloride 250 ml @ 0 mls/hr DAILY IV 05/11/21 09:00 05/11/21 08:54 DC Midazolam HCl 100 mg/Sodium Chloride 100 ml @ 0 mls/hr IV 05/10/21 17:00 05/11/21 08:57 DC 05/11/21 01:39 Albuterol Sulfate (Ventolin Hfa) 200 inh STK-MED ONCE IH 05/10/21 22:44 05/10/21 22:45 DC Albuterol Sulfate (Ventolin Hfa) 2 inh OT ONCE IH 05/10/21 23:00 05/10/21 23:01 DC 05/10/21 23:15 Norepinephrine Bitartrate 8 mg/ Sodium Chloride 258 ml @ 0 mls/hr IV 05/11/21 08:00 06/10/21 07:59 05/17/21 23:24 Midazolam HCl 100 mg/Sodium Chloride 100 ml @ 0 mls/hr TITRATE IV 05/11/21 09:00 05/16/21 16:09 DC 05/16/21 12:21 Sodium Chloride 1,000 ml @ ud STK-MED ONCE .ROUTE 05/12/21 19:14 05/12/21 19:14 DC Albuterol Sulfate (Ventolin) 1.25 mg RTQ6 IH 05/14/21 03:00 05/14/21 00:49 DC Albuterol Sulfate (Ventolin) 1.25 mg RTQ6 PRN IH WHEEZING 05/14/21 03:00 06/13/21 02:59 Vancomycin HCl 1.5 gm/Sodium Chloride 300 ml @ 175 mls/hr Q12H IV 05/14/21 12:00 05/16/21 09:01 DC 05/16/21 00:00 Cefepime HCl 2 gm/ Sodium Chloride 100 ml @ 100 mls/hr BID IV 05/14/21 10:30 05/24/21 10:29 05/17/21 20:34 Acetaminophen (Ofirmev) 1,000 mg Q8H IV 05/14/21 14:30 05/14/21 16:57 DC Acetaminophen (Ofirmev) 1,000 mg Q8H PRN IV FEVER 05/14/21 17:00 06/13/21 14:29 05/18/21 01:10 Fat Emulsion Intravenous 250 ml @ 15 mls/hr Q2D IV 05/14/21 17:30 06/13/21 17:29 05/16/21 16:50 Ketorolac Tromethamine (Toradol) 30 mg OT PRN IV PAIN 4 - 6 05/14/21 21:30 05/17/21 15:08 DC 05/14/21 21:41 Sterile Water (Water) 1,000 ml STK-MED ONCE .ROUTE 05/14/21 22:50 05/14/21 22:50 DC Sodium Chloride 100 ml @ ud STK-MED ONCE IV 05/15/21 04:22 05/15/21 04:22 DC Vancomycin HCl 1.5 gm/Sodium Chloride 300 ml @ 175 mls/hr Q8H IV 05/16/21 17:00 06/15/21 16:59 05/18/21 01:00 Vancomycin HCl 2 gm/Sodium Chloride 400 ml @ 160 mls/hr OT IV 05/16/21 09:30 05/17/21 15:08 DC 05/16/21 10:24 Potassium Chloride 50 ml @ 50 mls/hr Q2 IV 05/16/21 16:00 05/16/21 20:59 DC 05/16/21 20:00 Midazolam HCl 200 mg/Sodium Chloride 200 ml @ 0 mls/hr TITRATE IV 05/16/21 16:30 06/15/21 16:29 05/17/21 23:25 Sodium Chloride 500 ml @ ud STK-MED ONCE IV 05/16/21 16:46 05/16/21 16:46 DC Vancomycin HCl 1 ml @ ud STK-MED ONCE .ROUTE 05/17/21 01:55 05/17/21 01:55 DC Sodium Chloride 250 ml @ ud STK-MED ONCE .ROUTE 05/17/21 01:55 05/17/21 01:56 DC Magnesium Sulfate 50 ml @ 50 mls/hr OT ONCE IV 05/17/21 11:30 05/17/21 12:29 DC 05/17/21 11:30 Potassium Chloride 100 ml @ 50 mls/hr OT IV 05/17/21 11:30 05/17/21 20:22 DC 05/17/21 13:04 Insulin Glargine (Lantus) 1 unit STK-MED ONCE SQ 05/17/21 13:00 05/17/21 13:01 DC Potassium Chloride 200 ml @ 50 mls/hr OT IV 05/17/21 19:30 06/16/21 19:29 05/17/21 23:20 VTE VTE Risk Total Score: 5 VTE Risk Score VTE Risk: Score 0-1 = Low Risk (Aggressive mobilization; early ambulation; no VTE prophylaxis required) Score 2: Moderate Risk (Intermittent/Pneumatic Compression Device OR Lovenox/Heparin/Coumadin) Score 3-4: High Risk (Intermittent/Pneumatic Compression Device AND Lovenox/Heparin/Coumadin) Score > or =5: Highest Risk (Intermittent/Pneumatic Compression Device AND Lovenox/Heparin/Coumadin) Antico:Hep/LMWH/Coum/Xarelto: Yes Mechanical device ordered: Yes VTE VTE Present on Admission: No Currently receiving anticoagul: Yes VTE Risk Total Score: 5 Antico:Hep/LMWH/Coum/Xarelto: Yes Mechanical device ordered: Yes Assessment/Plan Assessment/Plan Assessment/Plan Problems: (1) Pneumonia due to COVID-19 virus Status: Acute ICD Code: U07.1 - COVID-19; J12.82 - Pneumonia due to coronavirus disease 2019 SNOMED: [id number] (2) Acute and chronic respiratory failure with hypoxia ICD Code: J96.21 - Acute and chronic respiratory failure with hypoxia SNOMED: 98300361, [id number] Plan ASSESSMENT / PLAN: 1) Acute Hypoxemic Respiratory Failure / Severe ARDS: Pt remains intubated (since 05/06/21) and sedated at this time. On Tv320, RR 35, Peep 16, FiO2 100% ABG 7.32/65/56/33/88% 2) COVID-19 +: Pt has completed Tx with Remdesivir, and remains on Dexamethasone for now. She would benefit from ECMO and/or lung transplant evaluation. However, due to the Pandemic and COVID surge, no beds are available for transfer to a Higher Level of Care in [place], [place], or [place] at this time. She still remains on the "wait list" for several facilities, we are con't to prone the pt as needed daily for 6 hours, if O2 sat >90% in supine position consider stopping NMBA. 3) Remains febrile and her Midline was removed and tip cultured. Vancomycin and Cefepime per ID. would consider d/c vanco as no growth of Staph 4) Hyperglycemia: Exacerbated by Steroids and TF. HgbA1c is 6.5. 5) tube feeds 6) GI and DVT prophylaxis: Will continue Pepcid and Lovenox-full dose. 7. NG advanced 8. replete K, Mg 9. decrease lasix to daily Patient seen through remote audiovisual assessment through HIPAA compliant setup. All relevant labs, flowsheets, and images reviewed. Cumulative nonprocedural critical care time spent in directed patient care = 60 min COURTNEY WINTERS MD May 18, 2021 09:23
[2021-05-18] MEDS: LOVENOX SQ SCH ×2 (09:50→20:30)
[2021-05-18] MEDS: PEPCID IV SCH ×2 (09:50→21:00)
[2021-05-18] MEDS: LASIX IV SCH (09:50)
[2021-05-18] MEDS: COLACE NG SCH ×2 (09:50→21:00)
[2021-05-18] MEDS: NS IV SCH (09:54)
[2021-05-18] MEDS: SUBLIMAZE IV SCH (09:54)
[2021-05-18] MEDS ORDERED: POTASSIUM CHLORIDE NG STA (10:23)
[2021-05-18] MEDS ORDERED: MAGNESIUM SULFATE 50 ML IV ONE (10:30)
[2021-05-18] MEDS ORDERED: KCL 20MEQ/100ML 100 ML IV ONE (10:30)
[2021-05-18] MEDS ORDERED: POTASSIUM CHLORIDE ONE (12:17)
--- NOTE | 2021-05-18 13:20 | NUR ---
HR 140 TEMP 100.9 ADMINISTERED TYLENOL AND PACKED UNDERARMS WITH ICE. NOTIFIED DR. WINTERS THAT PATIENT IS FEBRILE AND STARTED HAVING TACHYCARDIA AFTER GIVEN VECURONIUM. NEW ORDERS RECEIVED TO START PROPOFOL DRIP. RBTO.
[2021-05-18] MEDS ORDERED: DIPRIVAN IV PRN (13:30)
--- NOTE | 2021-05-18 13:33 | PRM.PN ---
PROGRESS NOTE S/O/A/P DATE: 05/18/21 TIME: 1:15pm SUBJECTIVE: RN reports no new issues overnight. Patient remains intubated and sedated. Still with persistent low-grade fevers overnight. OBJECTIVE: PHYSICAL EXAMINATION: VITAL SIGNS: T 98.1, HR 93, BP 118/60, RR 35, O2 sat 94% on VENT GENERAL: Resting comfortably in NAD. No family or friends present at bedside. HEENT: NC/AT. PERRL. MMM. Neck is supple. LUNGS: Coarse BL BS noted. +ETT in place. HEART: Normal S1S2. RRR. No murmurs, rubs, gallops, or thrills. ABDOMEN: Soft. ND. NTTP. Hypoactive BS throughout. EXTREMITIES: Trace BL pedal edema noted. NEUROLOGIC: Unable to properly assess due to intubation and sedation. LABORATORY DATA: Reviewed and significant for WBC 15.6, Hgb 10.6, K 3.0, CO2 37.8, Cr 0.30, Gluc 216, AST 36, AB.32/65.3/56, Bld Cx: Neg x1day/5day, Sptm Cx: Nml Resp Aimee, Ur Cx: Neg x 40hrs/44hrs, Cath Tip Cx: Neg x 37hrs IMAGING STUDIES: 1) CXR: Increasing BL PNA ASSESSMENT / PLAN: 1) Acute Hypoxemic Respiratory Failure / Severe ARDS: Pt remains intubated (since 05/06/21) and sedated at this time. Will continue VENT management as per Tele-ICU [facility] [employer]. 2) COVID-19 +: Pt has completed Tx with Remdesivir, and remains on Dexamethasone for now. She would benefit from ECMO and/or lung transplant evaluation. However, due to the Pandemic and COVID surge, no beds are a vailable for transfer to a Higher Level of Care. 3) BL Pneumonia: Due to #2 above. Zosyn has been DC'd. Continue supportive care. 4) Hypotension: Improving. Levophed has been weaned off. 5) Hyperglycemia: Exacerbated by Steroids and TF/TPN. HgbA1c is 6.5. 6) Persistent Fever: Midline has been removed and the tip cultured. Pt remains on Vanc and Cefepime per ID Dr Connolly. 7) Constipation: Will continue Colace. 8) GI and DVT prophylaxis: Will continue Pepcid and Lovenox (T-dose). IRVING SPIVEY MD May 18, 2021 13:33
[2021-05-18] MEDS ORDERED: KCL 20MEQ/100ML 200 ML IV ONE (14:00)
--- NOTE | 2021-05-18 14:00 | NUR ---
DR. SPIVEY ON UNIT NOTIFIED OF FEVER. NEW ORDERS RECEIVED FOR BLOOD CULTURES, URINE CULTURE AND SPUTUM CULTURE. AND DOCULAX SUPPOSITORY.
--- NOTE | 2021-05-18 18:03 | NUR ---
At bedside with RN, assessing and cleaning up patient's face noticed a red smita under holister on cheek. Pulled nando back a little further and noticed approx. quarter size wound, red and scabbed. Nando removed, sore cleaned and dressed with alevyn. Pictures taken by RN. Holister replaced but sticker not taken off nando and just rests on cheek to allow access to wound. Addendum: 05/18/21 at 1807 by Bonita Rowell RRT RT Amended: Links added.
[2021-05-18] MEDS ORDERED: BISAC-EVAC RC STA (19:46)
[2021-05-19] VITALS (95 sets, daily range): BP systolic 90–133; BP diastolic 44–67
[2021-05-19] MEDS: PRECEDEX 400 MCG/100 ML INJECT 100 ML IV SCH (00:52)
[2021-05-19] MEDS: NS IV SCH ×3 (00:52→21:11)
[2021-05-19] MEDS: VERSED IV SCH ×2 (00:52→21:11)
[2021-05-19] MEDS: VANCOMYCIN HCL 1.5 GM in NS 250ML 300 ML IV SCH ×4 (01:00→23:00)
[2021-05-19] MEDS: INFUVITE ADULT IV SCH (01:39)
[2021-05-19] MEDS: CLINIMIX IV SCH (01:39)
[2021-05-19] MEDS ORDERED: HUMULIN R ONE (01:58)
[2021-05-19 04:55] LABS: BASOPHIL % 0.2 % (0.0-0.2); EOSINOPHIL # 0.2 10^3/uL (0.0-0.2); EOSINOPHIL % 1.9 % (0.0-5.0); LYMPHOCYTES # 1.28 10^3/uL1 (1.0-4.8); LYMPHOCYTES % 14.3 % (24.0-44.0); MEAN CORP HGB 29.5 pg (26-34); MONOCYTES # 0.3 10^3/uL (0.3-0.8); MONOCYTES % 3.1 % (5.0-12.0); NEUTROPHIL # 6.9 10^3/uL (1.8-7.7); NEUTROPHILS % 77.4 % (41.0-85.0); PLATELET COUNT 143 10^3/uL (150-400); RED CELL DISTRIBUTION WIDTH 13.1 % (11.5-14.5)
[2021-05-19 05:07] LABS: CALCIUM 8.1 mg/dL (8.4-10.5); CARBON DIOXIDE 32.4 mmol/L (20.0-32)
--- NOTE | 2021-05-19 06:43 | PRM.PN ---
Assessment & Plan Provider Note: Called by CELLAR PACKER regarding decrease in sats to high 88s on Fi02 70% Increased Fi02 to 85% without improvement Increased Fi02 further to 100% now with sats low 90s Continue to follow sats MARICHUY OSORIO MD May 19, 2021 06:43
--- NOTE | 2021-05-19 07:30 | PCM.EKG ---
[facility] Test Date: 2021-05-18 Test Time: 21:34:46 Pat Name: SHAMIR RAHMAN Department: Room: ICU6 A Gender: F Dice Table Operator: : 1985 Requested By: IRVING SPIVEY Order Number: [id number] Reading MD: Measurements Intervals [place] Rate: 63 P: 61 WI: 142 QRS: -16 QRSD: 90 T: 9 QT: 418 QTc: 428 Interpretive Statements Sinus rhythm Borderline left axis deviation Abnormal R-wave progression, late transition Baseline wander in lead(s) V4 Compared to ECG 05/09/2021 19:48:10 Sinus tachycardia no longer present Left anterior fascicular block no longer present Please click the below link to view image of tracing.
[2021-05-19] MEDS ORDERED: LIPID EMULSION IV SCH (08:00)
[2021-05-19] MEDS: LOVENOX SQ SCH ×2 (08:30→21:09)
[2021-05-19] MEDS: MAXIPIME 2 GM in NS 100ML 100 ML IV SCH ×2 (09:00→21:10)
[2021-05-19] MEDS: PEPCID IV SCH ×2 (09:00→21:10)
[2021-05-19] MEDS: COLACE NG SCH ×2 (09:00→21:10)
[2021-05-19] MEDS: LASIX IV SCH (09:00)
[2021-05-19] MEDS: DEXAMETHASONE 10 MG/ML VIAL IV SCH (09:00)
--- NOTE | 2021-05-19 11:10 | PRM.PN ---
Assessment & Plan Provider Note: Tele-ICU Consult Note Brief summary 35 y/o woman admitted w/ covid pneumonia w/ prolonged ICU course. She remains intubated. Tolerating being supine more but still requires periodic paralysis for hypoxia. Vent setting are still too high to consider trach, if that is goals of care. O: Vitals reviewed. Gen appearance: intubated and supine See Nurse physical bedside exam Labs and imaging reviewed Impression/Problem list: Respiratory failure COVID19 pneumonia Suspect superimposed bacterial pneumonia Plan: Immediate nursing concerns addressed: no acute issues Drips: versed/precedex/fent/prop/ #Neuro- sedated. consider transitioning patient to PO meds to reduce drips Valium 10mg and titrate as needed to wean versed off Methadone 10mg titrate as needed to wean fentanyloff Clonidine 0.2mg tid titrate to wean precedex off #[facility]- not requiring pressors #Pulm- c/w vent settings. try to titrate down FIO2 and peep goal 88% to 92% O2sat. likely aim for trach [320/35/100/16] ABG and CXR reviewed #GI- Aspirated w/ tube feeds so now on TPN #Endo-monitor FS q6h #Renal. Monitor urine output and Scr. #Heme/onc- monitor plt and transfuse if H&H <7 #ID-panculture if febrile. back on cefepime and vanco b/c she was spiking fever. awaiting repeat cx completed course of treatment for covid. GI ppx-on famotidine DVT ppx- on lovenox I discussed patient with FORM TAMPER and I saw this patient and completed a full visual exam via audio-visual HIPAA compliant technology Tele-ICU ccm time: 60 min RASHMI BLUE-GIULIA AMAYA May 19, 2021 11:09
--- NOTE | 2021-05-19 12:03 | PRM.PN ---
PROGRESS NOTE S/O/A/P DATE: 05/19/21 TIME: 11:55am SUBJECTIVE: RN reports no new issues overnight. Patient remains intubated and sedated. OBJECTIVE: PHYSICAL EXAMINATION: VITAL SIGNS: T 97.9, HR 62, BP 102/52, RR 37, O2 sat 95% on VENT GENERAL: Resting comfortably in NAD. No family or friends present at bedside. HEENT: NC/AT. PERRL. MMM. Neck is supple. LUNGS: Coarse BL BS noted. +ETT in place. HEART: Normal S1S2. RRR. No murmurs, rubs, gallops, or thrills. ABDOMEN: Soft. ND. NTTP. Hypoactive BS throughout. EXTREMITIES: Trace BL pedal edema noted. NEUROLOGIC: Unable to properly assess due to intubation and sedation. LABORATORY DATA: Reviewed and significant for Hgb 8.8, Plt 143, CO2 32.4, BUN 22, Cr 0.48, Gluc 214, Phos 1.0, AST 38, TPN 0.11, BNP 1249, Bld Cx: Neg x1day/5day, Sptm Cx: Nml Resp Aimee, Ur Cx: Neg x 40hrs/44hrs, Cath Tip Cx: Neg x 37hrs IMAGING STUDIES: No new studies today ASSESSMENT / PLAN: 1) Acute Hypoxemic Respiratory Failure / Severe ARDS: Pt remains intubated (since 05/06/21) and sedated at this time. Will continue VENT management as per Tele-ICU Frame Operator. 2) COVID-19 +: Pt has completed Tx with Remdesivir, and remains on Dexamethasone for now. She would benefit from ECMO and/or lung transplant evaluation. However, due to the Pandemic and COVID surge, no beds are available for transfer to a Higher Level of Care. 3) BL Pneumonia: Due to #2 above. Zosyn has been DC'd. Continue supportive care. 4) Anemia: Hgb 10.6 -->8.8 today. RN reports no obvious acute bleeding anywhere other than Pt's regular menstrual period. Will need to monitor closely. 5) HypoPhosphatemia: Will replace PRN. 6) Hypotension: Improving. Levophed has been weaned off. 7) Hyperglycemia: Exacerbated by Steroids and TF/TPN. HgbA1c is 6.5. 8) Persistent Fever: Midline has been removed and the tip cultured. Pt remains on Vanc and Cefepime empirically per Tele-ID Dr Connolly. 9) Constipation: Will continue Colace. 10) GI and DVT prophylaxis: Will continue Pepcid and Lovenox (T-dose due to #2 above). IRVING SPIVEY MD May 19, 2021 12:03
[2021-05-19] MEDS ORDERED: POTASSIUM PHOSPHATE IV SCH (13:30)
[2021-05-19] MEDS ORDERED: NS IV SCH (13:30)
[2021-05-19] MEDS: SUBLIMAZE IV SCH (21:11)
[2021-05-20] VITALS (95 sets, daily range): BP systolic 87–155; BP diastolic 46–71
[2021-05-20 05:07] LABS: ABG PCO2 75.6 mmHg (35.0-45.0); ABG PH 7.221 (7.350-7.450); BE(B) 1.5 mmol/L (-2.0-2.0); HCO3act 30.3 mmol/L (22.0-26.0); pO2 83.2 mmHg (80.0-100.0)
[2021-05-20] MEDS: INFUVITE ADULT IV SCH (05:11)
[2021-05-20] MEDS: CLINIMIX IV SCH (05:11)
[2021-05-20 06:16] LABS: CALCIUM 8.1 mg/dL (8.4-10.5); CARBON DIOXIDE 32.1 mmol/L (20.0-32)
--- NOTE | 2021-05-20 06:52 | DIET.OP ---
Nutrition Asmt/Malnutrit 2-17 Actual Date of Review: May 20, 2021 Nutritional Screening: Other (LOS) Diagnosis: covid pneumonia Pertinent Medical Hx/Surgical: none Subjective Information: pt remains intubated. TPN almost up to goal rate. Lipids being given q48h and clinimix running at 75 ml/hr. Pt continues to be proned but is tolerating more supine position Current Diet Order/Nutrition S: NPO Pertinent Meds Current Medications Medications (Trade) Dose Ordered Sig/Davon PRN Reason Start Time Stop Time Status Last Admin Fat Emulsion Intravenous 250 ml @ 15 mls/hr Q2D 05/20/21 17:00 06/19/21 16:59 Furosemide (Lasix) 20 mg DAILY 05/19/21 09:00 06/09/21 10:29 05/19/21 09:00 Propofol (Diprivan) Diprivan IV infusion tritra... TITRATE PRN SEDATION 05/18/21 13:30 06/17/21 13:29 05/18/21 13:29 Vancomycin HCl 1.5 gm/Sodium Chloride 300 ml @ 175 mls/hr Q12HR 05/19/21 21:00 06/18/21 20:59 05/19/21 23:00 Pertinent Labs Laboratory Tests 05/19/21 14:06: Bedside Glucose 262H 05/19/21 16:20: Vancomycin Level Trough 22.7*H 05/19/21 17:39: Bedside Glucose 238H 05/19/21 23:08: Bedside Glucose 114H 05/20/21 04:29: Sodium Level 144, Potassium Level 4.1, Chloride Level 110.0H, Carbon Dioxide Level 32.1H, Anion Gap 6.0, Blood Urea Nitrogen 29H, Creatinine 0.56L, Estimated GFR () 148.2, Est GFR (CKD-EPI)(Non-Afr [place]) 122.5, BUN/Creatinine Ratio 51.0, Glucose Level 163H, Calcium Level 8.1L, Phosphorus Level 3.0, Magnesium Level 1.9, Total Bilirubin 0.4, Aspartate Amino Transf (AST/SGOT) 28, Alanine Aminotransferase (ALT/SGPT) 44, Alkaline Phosphatase 76, Total Protein 5.4L, Albumin 1.7L, Globulin 3.7, Albumin/Globulin Ratio 0.459 8/24/21 04:59: Blood Gas Sample Site ART LINE, Blood Gas pH 7.221L, Blood Gas PCO2 75.6*H, Blood Gas PO2 83.2, Blood Gas HCO3 30.3H, Blood Gas Base Excess 1.5, Lucas Test N/A, Arterial Blood Oxygen Saturation 94.6, Deoxyhemoglobin 5.4H, Carboxyhemoglobin 0.3, Methemoglobin 0.2, Total Hemoglobin 9.4L, Total Oxygen Concentration 12.6L, Blood Gas Temperature 37.0, Oxygen Delivery Method (LAB) VENTILATOR, Blood Gas Vent Mode AC+, Blood Gas Vent Rate 35, FiO2 100, Blood Gas Tidal Volume 320, Blood Gas PEEP 16.0, Total Carbon Dioxide 32.6H Height (Feet): 5 Height (Inches): 5 Current Weight: 197 Usual Weight: 225 %IBW: 162 Recent Weight Change: Yes (wt down 8# from last assessment) Weight Status: Obese GI Symptoms: Constipation (pt with no BM since the th per RN) GI Comments Patient aspirated while on TF Food Allergies: No Cultural/Ethnic/Catholic Cookie: none known Usual Diet at Home: regular Skin Integrity/Comment: No Current %PO: NPO Calories/Kcals/Kg: abbe st eq Kcals Calculated: 1750 kcal Protein g/k-1.5 g/kg IBW Protein Calculated: 56-85g Fluid: ml: 2363 ml (25 ml/kg) Nutritional Problem: Nutr. Problems Present Problems: Inadequate oral intake Etiology: decreased ability to consume Signs/Symptoms: remains intubated and sedated, need for alternate means of nutrition. TPN meeting at least 75% of nutrition needs currently RD Comments: Increase clinimix 10cc Q12h until goal rate of 85 ml/hr is met. Continue 250 ml of 20% lipid emulsion q48h at 15 ml/hr. Clinimix and lipid emulsion combined will provide 1700 kcal, 306g carbs, 102g protein, and 25g fat to meet 100% of patient's nutrition needs. Consider running trickle feeds of Jevity 1.2 at 10 ml/hr to maintain gut integrity Continue to monitor electrolytes and triglycerides. Monitor BG and correct as indicated. Expected Outcomes Goals 1.TPN to run at goal rate of 85 ml/hr next 3 days. (currently running at 75ml/hr and meeting >75% of patient needs 2. Weight with maintain +/- 2% during hospital stay. discharge goal is pending Malnutrtion/Nutrition Risk Edu: No MD Notificiation Needed?: No TESSA GUZMAN May 20, 2021 06:52
[2021-05-20 07:12] LABS: BASOPHIL % 0.2 % (0.0-0.2); EOSINOPHIL # 0.1 10^3/uL (0.0-0.2); EOSINOPHIL % 1.1 % (0.0-5.0); LYMPHOCYTES # 1.06 10^3/uL1 (1.0-4.8); LYMPHOCYTES % 12.7 % (24.0-44.0); MEAN CORP HGB 29.3 pg (26-34); MONOCYTES # 0.4 10^3/uL (0.3-0.8); MONOCYTES % 4.2 % (5.0-12.0); NEUTROPHIL # 6.4 10^3/uL (1.8-7.7); NEUTROPHILS % 76.9 % (41.0-85.0); PLATELET COUNT 179 10^3/uL (150-400); RED CELL DISTRIBUTION WIDTH 13.9 % (11.5-14.5)
[2021-05-20] MEDS: LOVENOX SQ SCH ×2 (08:30→20:30)
[2021-05-20] MEDS: VANCOMYCIN HCL 1.5 GM in NS 250ML 300 ML IV SCH ×2 (08:58→21:59)
[2021-05-20] MEDS: PEPCID IV SCH ×2 (08:58→21:00)
[2021-05-20] MEDS: MAXIPIME 2 GM in NS 100ML 100 ML IV SCH ×2 (08:58→21:00)
[2021-05-20] MEDS: LASIX IV SCH (08:58)
[2021-05-20] MEDS: DEXAMETHASONE 10 MG/ML VIAL IV SCH ×2 (08:58→23:43)
--- NOTE | 2021-05-20 08:58 | DIREP ---
PROCEDURE:CHEST 1 VIEW COMPARISON:[facility], CR, XRAY CHEST SINGLE VW, 05/18/2021, 07:01 AM. [facility], CR, XRAY CHEST SINGLE VW, 05/15/2021, 06:55 AM. [facility], CR, XRAY CHEST SINGLE VW, 05/14/2021, 03:11 PM. INDICATIONS:COVID PNA FINDINGS: LUNGS/PLEURA:Stable ET tube. Stable diffuse bilateral infiltrates. No effusions. VASCULATURE:Normal. Unremarkable pulmonary vasculature. CARDIAC:Normal. No cardiac silhouette abnormality or cardiomegaly. MEDIASTINUM:Normal. No visible mass or adenopathy. BONES:Normal. No fracture or visible bony lesion. OTHER:Stable left subclavian catheter and NG tube. EKG leads overlie the chest. CONCLUSION:No significant change since 05/18/2021. Continued findings consistent with Covid 19 pneumonia. Dictated by: Perez Mayorga M.D. on 05/20/2021 at 08:51 AM
[2021-05-20] MEDS: COLACE NG SCH ×2 (08:59→21:00)
--- NOTE | 2021-05-20 11:05 | PRM.PN ---
Subjective Subjective Date: May 20, 2021 Time: 09:00 Subjective Remains intubated, sedated, requiring high PEEP and high FiO2. VTE VTE Risk Total Score: 5 VTE Risk Score VTE Risk: Score 0-1 = Low Risk (Aggressive mobilization; early ambulation; no VTE prophylaxis required) Score 2: Moderate Risk (Intermittent/Pneumatic Compression Device OR Lovenox/Heparin/Coumadin) Score 3-4: High Risk (Intermittent/Pneumatic Compression Device AND Lovenox/Heparin/Coumadin) Score > or =5: Highest Risk (Intermittent/Pneumatic Compression Device AND Lovenox/Heparin/Coumadin) Antico:Hep/LMWH/Coum/Xarelto: Yes Mechanical device ordered: Yes Review of Systems Other Unable to obtain, intubated sedated. Allergies: Coded Allergies: ibuprofen (Verified Allergy, Unknown, 04/29/21) naproxen (Verified Allergy, Unknown, 04/29/21) Objective Vitals and I/O Vital Sign - Last 24 Hours 05/19/21 05/19/21 05/19/21 05/19/21 11:15 11:30 11:45 12:00 Temp 98.6 98.6 98.8 Pulse 82 82 75 B/P (MAP) 126/61 (82) 124/60 (81) 114/55 (74) Pulse Ox 90 89 91 O2 Delivery Mechanical Ventilator 05/19/21 05/19/21 05/19/21 05/19/21 12:00 12:15 12:24 12:30 Temp 99.0 99.1 99.1 Pulse 72 70 82 68 Resp 37 B/P (MAP) 111/48 (69) 102/50 (67) 101/51 (68) 107/52 (70) Pulse Ox 91 92 89 93 FiO2 100 05/19/21 05/19/21 05/19/21 05/19/21 12:45 13:00 13:15 13:30 Temp 99.3 99.3 99.3 99.5 Pulse 68 66 66 64 B/P (MAP) 102/51 (68) 99/50 (66) 101/51 (68) 100/50 (67) Pulse Ox 94 95 96 97 05/19/21 05/19/21 05/19/21 05/19/21 13:45 14:00 14:15 14:30 Temp 99.5 99.5 99.5 99.5 Pulse 65 64 65 65 B/P (MAP) 100/51 (67) 97/46 (63) 100/52 (68) 100/51 (67) 102/51 (68) Pulse Ox 97 97 97 96 05/19/21 05/19/21 05/19/21 05/19/21 14:45 15:00 15:15 15:20 Temp 99.5 99.5 99.5 Pulse 65 66 64 66 Resp 37 B/P (MAP) 101/52 (68) 101/52 (68) 102/52 (69) Pulse Ox 96 96 97 96 FiO2 100 05/19/21 05/19/21 05/19/21 05/19/21 15:30 15:45 16:00 16:00 Temp 99.5 99.5 99.5 Pulse 83 82 86 B/P (MAP) 127/65 (85) 121/61 (81) 106/64 (78) 126/63 (84) Pulse Ox 99 98 97 O2 Delivery Mechanical Ventilator 05/19/21 05/19/21 05/19/21 05/19/21 16:15 16:30 16:45 16:50 Temp 99.3 99.1 99.1 Pulse 93 90 97 97 Resp 35 B/P (MAP) 130/63 (85) 133/64 (87) 131/64 (86) Pulse Ox 96 94 96 95 FiO2 100 05/19/21 05/19/21 05/19/21 05/19/21 17:00 17:15 17:17 17:30 Temp 99.0 99.0 99.0 Pulse 91 96 90 Resp 44 B/P (MAP) 125/60 (81) 130/64 (86) 125/62 (83) Pulse Ox 93 93 92 93 05/19/21 05/19/21 05/19/21 05/19/21 17:45 18:00 18:07 18:15 Temp 99.0 99.0 99.0 Pulse 91 89 98 78 Resp 36 B/P (MAP) 132/67 (88) 107/60 (76) 111/56 (74) 127/63 (84) Pulse Ox 92 93 9 94 FiO2 100 05/19/21 05/19/21 05/19/21 05/19/21 18:30 18:45 20:00 20:00 Temp 99.0 99.1 99.1 Pulse 72 69 62 62 Resp 37 B/P (MAP) 107/55 (72) 103/54 (70) 95/50 (65) 99/53 (68) Pulse Ox 93 94 98 98 FiO2 100 05/19/21 05/19/21 05/19/21 05/19/21 20:13 20:15 20:15 20:30 Temp 99.3 99.3 Pulse 62 62 B/P (MAP) 99/52 (68) 99/52 (68) Pulse Ox 99 98 O2 Delivery Mechanical Ventilator FiO2 100 05/19/21 05/19/21 05/19/21 05/19/21 20:45 21:00 21:15 21:30 Temp 99.3 99.3 99.3 99.3 Pulse 62 61 60 61 B/P (MAP) 100/53 (69) 99/52 (68) 98/52 (67) 97/51 (66) Pulse Ox 99 99 99 99 05/19/21 05/19/21 05/19/21 05/19/21 21:45 22:00 22:04 22:05 Temp 99.3 99.3 Pulse 61 61 62 61 Resp 37 36 B/P (MAP) 97/51 (66) 91/51 (64) 97/51 (66) Pulse Ox 99 99 98 99 O2 Delivery Mechanical Ventilator FiO2 100 100 05/19/21 05/19/21 05/19/21 05/19/21 22:15 22:30 22:45 23:00 Temp 99.3 99.3 99.3 99.3 Pulse 60 61 61 61 B/P (MAP) 95/51 (66) 94/50 (65) 93/50 (64) 93/50 (64) Pulse Ox 98 99 99 99 05/19/21 05/19/21 05/19/21 05/19/21 23:13 23:15 23:15 23:30 Temp 99.3 99.3 Pulse 61 60 61 Resp 35 B/P (MAP) 92/50 (64) 93/50 (64) Pulse Ox 100 100 100 O2 Delivery Mechanical Ventilator FiO2 100 05/19/21 05/20/21 05/20/21 05/20/21 23:45 00:00 00:01 00:15 Temp 99.3 99.3 99.3 Pulse 60 60 60 60 Resp 35 B/P (MAP) 91/49 (63) 88/46 (60) 89/49 (62) 91/50 (64) Pulse Ox 100 100 100 100 FiO2 100 05/20/21 05/20/21 05/20/21 05/20/21 00:30 00:45 01:00 01:15 Temp 99.5 99.5 99.5 99.5 Pulse 60 61 62 67 B/P (MAP) 90/49 (63) 89/49 (62) 87/48 (61) 95/51 (66) Pulse Ox 100 100 99 99 05/20/21 05/20/21 05/20/21 05/20/21 01:30 01:45 02:00 02:15 Temp 99.5 99.3 99.1 99.1 Pulse 70 71 70 67 B/P (MAP) 98/52 (67) 100/52 (68) 109/57 (74) 96/51 (66) 100/53 (69) Pulse Ox 98 98 97 97 05/20/21 05/20/21 05/20/21 05/20/21 02:30 02:45 03:00 03:15 Temp 99.0 99.0 98.8 98.6 Pulse 65 65 65 64 B/P (MAP) 94/49 (64) 96/51 (66) 96/52 (67) 95/52 (66) Pulse Ox 96 95 95 96 05/20/21 05/20/21 05/20/21 05/20/21 03:30 03:45 04:00 04:00 Temp 98.6 98.4 98.2 Pulse 65 64 64 64 Resp 36 B/P (MAP) 93/50 (64) 96/53 (67) 109/55 (73) 94/51 (65) Pulse Ox 95 97 95 97 FiO2 100 05/20/21 05/20/21 05/20/21 05/20/21 04:15 04:30 04:45 05:00 Temp 98.2 98.4 98.4 98.4 Pulse 64 64 64 82 B/P (MAP) 94/51 (65) 94/51 (65) 94/51 (65) 155/60 (91) Pulse Ox 97 97 96 98 05/20/21 05/20/21 05/20/21 05/20/21 05:00 05:00 05:15 05:30 Temp 98.2 98.2 Pulse 65 77 78 Resp 35 B/P (MAP) 110/57 (74) 111/58 (75) Pulse Ox 92 97 96 O2 Delivery Mechanical Ventilator FiO2 100 05/20/21 05/20/21 05/20/21 05/20/21 05:43 05:45 06:00 06:15 Temp 98.2 98.2 98.2 Pulse 75 79 77 78 Resp 35 B/P (MAP) 112/57 (75) 117/66 (83) 112/56 (74) 111/57 (75) Pulse Ox 96 95 94 93 FiO2 100 05/20/21 05/20/21 05/20/21 05/20/21 06:30 06:45 08:00 08:31 Temp 98.2 98.2 Pulse 81 71 74 Resp 35 B/P (MAP) 114/58 (76) 109/54 (72) Pulse Ox 92 91 97 O2 Delivery Mechanical Ventilator Mechanical Ventilator FiO2 100 05/20/21 05/20/21 08:32 08:32 Pulse 74 Resp 35 Pulse Ox 97 FiO2 90 100 Intake and Output 05/20/21 07:00 Intake Total 2512 ml Output Total 2650 ml Balance -138 ml General: Other (Intubated sedated.) HEENT: Atraumatic, PERRLA, EOMI Neck: Supple, No JVD Lungs: Other (Coarse bilateral breath sounds, respirations non labored) Heart: No murmurs Abdomen: Normal bowel sounds, Soft Extremities: No clubbing, No cyanosis Skin: No rashes, No breakdown Neuro: Normal speech, Strength at 5/5 X4 ext, Other (Intubated sedated.) Psych/Mental Status: Other (Intubated sedated.) All Results(Lab/Rad) Laboratory Tests Test 05/02/21 06:37 05/02/21 08:25 White Blood Count 7.6 10^3/uL Red Blood Count 4.62 10^6/uL Hemoglobin 13.6 g/dL Hematocrit 40.6 % Mean Corpuscular Volume 87.9 fL Mean Corpuscular Hemoglobin 29.4 pg Mean Corpuscular Hemoglobin Concent 33.5 g/dL Red Cell Distribution Width 12.0 % Platelet Count 268 10^3/uL Mean Platelet Volume 10.5 fL Neutrophils (%) (Auto) 82.9 % Lymphocytes (%) (Auto) 11.7 % Monocytes (%) (Auto) 5.4 % Neutrophils # (Auto) 6.3 10^3/uL Lymphocytes # (Auto) 0.89 10^3/uL1 Monocytes # (Auto) 0.4 10^3/uL Absolute Immature Granulocyte (auto 0.12 10^3 u/L Absolute Eosinophils (auto) 0.0 10^3/uL Immature Granulocytes % 1.60 % Eosinophils % 0.0 % Basophils % 0.0 % Basophils # 0.0 10^3/uL Sodium Level 140 mmol/L Potassium Level 4.7 mmol/L Chloride Level 104.0 mmol/L Carbon Dioxide Level 27.6 mmol/L Anion Gap 13.1 Blood Urea Nitrogen 14 mg/dL Creatinine 0.62 mg/dL Estimated GFR () 131.8 Est GFR (CKD-EPI)(Non-Afr [place]grin) 108.9 BUN/Creatinine Ratio 22.0 Glucose Level 121 mg/dL Calcium Level 8.8 mg/dL Total Bilirubin 0.4 mg/dL Aspartate Amino Transf (AST/SGOT) 26 U/L Alanine Aminotransferase (ALT/SGPT) 37 U/L Alkaline Phosphatase 42 U/L Total Protein 6.7 g/dL Albumin 2.5 g/dL Globulin 4.2 Albumin/Globulin Ratio 0.595 Blood Gas Sample Site RT RADIAL ARTERY Blood Gas pH 7.405 Blood Gas PCO2 41.1 mmHg Blood Gas PO2 82.5 mmHg Blood Gas HCO3 25.2 mmol/L Blood Gas Base Excess 0.4 mmol/L Lucas Test POSITIVE Arterial Blood Oxygen Saturation 95.5 % Deoxyhemoglobin 4.5 % Carboxyhemoglobin 0.6 % Methemoglobin 0.3 % Total Hemoglobin 14.6 % Total Oxygen Concentration 19.5 % Blood Gas Temperature 37 Oxygen Delivery Method (LAB) BIPAP15/7 FiO2 99 % Total Carbon Dioxide 26.4 mmol/L Current Medications Medications (Trade) Dose Ordered Sig/Davon Route PRN Reason Start Time Stop Time Status Last Admin Dose Admin Remdesivir 200 mg/ Sodium Chloride 140 ml @ 120.69 mls/ hr OT STAT IV 04/28/21 19:53 04/29/21 08:10 DC 04/28/21 19:53 Remdesivir 100 mg/ Sodium Chloride 120 ml @ 111.111 mls/hr Q24HRS IV 04/29/21 20:00 05/02/21 21:05 05/01/21 20:50 Famotidine (Pepcid) 20 mg BID PO 04/28/21 21:00 05/28/21 20:59 05/02/21 09:29 Sucralfate (Carafate) 1 gm ACHS PO 04/28/21 21:00 05/28/21 20:59 05/02/21 07:30 Enoxaparin Sodium (Lovenox) 40 mg Q24HRS SQ 04/28/21 20:00 05/28/21 19:59 05/01/21 20:50 Sucralfate (Carafate) 1 gm STK-MED ONCE PO 04/28/21 20:56 04/28/21 20:56 DC Lorazepam (Ativan) 1 mg Q4HR PRN IV ANXIETY 04/29/21 00:00 05/29/21 00:00 04/30/21 22:30 Lorazepam (Ativan) 0.5 mg Q4HR PRN IV ANXIETY 04/29/21 00:00 05/29/21 00:00 Fentanyl Citrate (Sublimaze) 50 mcg STK-MED ONCE .ROUTE 04/29/21 11:37 04/29/21 11:38 DC Fentanyl Citrate (Sublimaze) 12.5 mcg OT ONCE IV 04/29/21 15:00 04/29/21 15:06 DC 04/29/21 13:35 Acetaminophen (Tylenol) 650 mg Q6HR PRN PO PAIN 1 - 3 04/30/21 18:00 05/02/21 18:00 05/01/21 06:28 Dexmedetomidine HCl 200 mcg/ Sodium Chloride 50 ml @ 0 mls/hr IV 05/01/21 10:30 05/01/21 11:28 DC Sodium Chloride 250 ml @ ud STK-MED ONCE .ROUTE 05/01/21 20:40 05/01/21 20:40 DC Assessment/Plan Assessment/Plan Assessment/Plan Problems: (1) Acute and chronic respiratory failure with hypoxia ICD Code: J96.21 - Acute and chronic respiratory failure with hypoxia SNOMED: 11977887, [id number] (2) Pneumonia due to COVID-19 virus Status: Acute ICD Code: U07.1 - COVID-19; J12.82 - Pneumonia due to coronavirus disease 2019 SNOMED: 439364348614445454 Plan ASSESSMENT / PLAN: 1) Acute Hypoxemic Respiratory Failure / Severe ARDS: Pt remains intubated (since 05/06/21) and sedated at this time. 2) COVID-19 +: Pt has completed Tx with Remdesivir, and remains on D examethasone for now. She would benefit from ECMO and/or lung transplant evaluation. However, due to the Pandemic and COVID surge, no beds are available for transfer to a Higher Level of Care in [place], [place], or [place] at this time. She still remains on the "wait list" for several facilities, we are con't to prone the pt as needed daily for 6 hours, if O2 sat >90% in supine position consider stopping NMBA. 3) Remains febrile and her Midline was removed and tip cultured. Vancomycin and Cefepime per ID. 4) Hyperglycemia: Exacerbated by Steroids and TF. HgbA1c is 6.5. 5) tube feeds 6) GI and DVT prophylaxis: Will continue Pepcid and Lovenox-full dose. 7. NG advanced 8. replete K, Mg Critical care time spent examining the patient, reviewing reviewing labs, reviewing x-ray, discussing the case with TAX PROFESSIONAL, discussing the case with RT, documentation 60 minutes. ALANNA GARCIA MD May 20, 2021 11:05
--- NOTE | 2021-05-20 12:38 | TELE.CONS ---
Review of Systems Allergies: Coded Allergies: ibuprofen (Verified Allergy, Unknown, 04/29/21) naproxen (Verified Allergy, Unknown, 04/29/21) VITALS REVIEW VITALS Vital Sign - Last 24 Hours 05/16/21 05/16/21 05/16/21 05/16/21 07:00 07:15 07:20 07:20 Temp 99.7 99.5 Pulse 66 65 B/P (MAP) 107/50 (69) 105/50 (68) Pulse Ox 97 97 O2 Delivery Mechanical Ventilator FiO2 100 05/16/21 05/16/21 05/16/21 05/16/21 07:30 07:45 07:47 07:48 Temp 99.5 99.5 Pulse 64 64 63 63 Resp 35 35 35 B/P (MAP) 103/50 (67) 103/51 (68) Pulse Ox 97 99 98 98 O2 Delivery Mechanical Ventilator FiO2 100 100 05/16/21 05/16/21 05/16/21 05/16/21 08:00 08:15 08:30 08:45 Temp 99.5 99.7 99.7 99.7 Pulse 63 63 63 64 Resp 35 B/P (MAP) 105/56 (72) 106/50 (68) 105/49 (67) 107/49 (68) 103/49 (67) Pulse Ox 99 99 100 100 05/16/21 05/16/21 05/16/21 05/16/21 09:00 09:15 09:30 09:45 Temp 99.7 99.7 99.7 Pulse 64 63 68 89 Resp 35 B/P (MAP) 104/47 (66) 112/55 (74) 139/70 (93) 295/288 (290) Pulse Ox 99 100 100 95 05/16/21 05/16/21 05/16/21 05/16/21 09:51 10:00 10:15 10:30 Temp 99.5 99.3 99.3 Pulse 118 129 92 89 Resp 37 35 B/P (MAP) 141/86 (104) 124/60 (81) 128/60 (82) 140/73 (95) Pulse Ox 89 92 91 93 FiO2 100 05/16/21 05/16/21 05/16/21 05/16/21 10:45 11:00 11:15 11:30 Temp 99.5 99.5 99.3 99.1 Pulse 80 99 84 91 Resp 35 B/P (MAP) 114/50 (71) 124/56 (78) 107/45 (65) 102/45 (64) Pulse Ox 92 95 93 94 05/16/21 05/16/21 05/16/21 05/16/21 11:45 11:47 12:00 12:15 Temp 99.1 99.0 99.0 Pulse 86 86 93 76 Resp 37 B/P (MAP) 96/43 (60) 98/58 (71) 91/45 (60) 101/47 (65) Pulse Ox 93 94 94 93 FiO2 100 05/16/21 05/16/21 05/16/21 05/16/21 12:30 12:45 12:45 12:45 Temp 99.0 99.1 Pulse 69 68 Resp 35 B/P (MAP) 98/48 (65) 99/50 (66) Pulse Ox 95 96 O2 Delivery Mechanical Ventilator FiO2 100 05/16/21 05/16/21 05/16/21 05/16/21 13:00 13:15 13:20 13:30 Temp 99.1 99.3 99.5 Pulse 66 65 64 72 Resp 36 35 B/P (MAP) 100/50 (67) 103/51 (68) 116/59 (78) Pulse Ox 97 98 99 100 FiO2 100 05/16/21 05/16/21 05/16/21 05/16/21 13:45 14:00 14:15 14:30 Temp 99.5 99.9 99.9 100.0 Pulse 62 64 69 71 Resp 35 B/P (MAP) 101/49 (66) 93/52 (66) 144/67 (92) 112/51 (71) 90/43 (59) Pulse Ox 100 100 100 100 05/16/21 05/16/21 05/16/21 05/16/21 14:45 15:00 15:15 15:23 Temp 100.2 100.4 100.6 Pulse 68 67 67 63 Resp 36 B/P (MAP) 110/49 (69) 110/50 (70) 111/51 (71) Pulse Ox 100 100 99 99 FiO2 100 05/16/21 05/16/21 05/16/21 05/16/21 15:30 15:45 16:00 16:15 Temp 100.6 100.6 100.8 100.9 Pulse 67 68 68 68 Resp 35 B/P (MAP) 113/51 (71) 110/50 (70) 115/59 (77) 110/51 (70) 109/50 (69) Pulse Ox 99 99 99 100 05/16/21 05/16/21 05/16/21 05/16/21 16:30 16:30 16:30 16:45 Temp 100.9 101.1 Pulse 68 68 Resp 35 B/P (MAP) 110/51 (70) 110/51 (70) Pulse Ox 100 99 O2 Delivery Mechanical Ventilator FiO2 100 05/16/21 05/16/21 05/16/21 05/16/21 17:00 17:15 17:30 17:45 Temp 101.1 101.1 101.1 101.1 Pulse 67 64 63 63 Resp 35 B/P (MAP) 110/51 (70) 103/48 (66) 102/47 (65) 99/45 (63) Pulse Ox 100 100 100 100 05/16/21 05/16/21 05/16/21 05/16/21 17:46 18:00 18:11 18:15 Temp 101.1 101.1 Pulse 63 64 61 Resp 35 44 B/P (MAP) 103/56 (72) 116/55 (75) 102/46 (64) Pulse Ox 100 100 92 100 FiO2 100 05/16/21 05/16/21 05/16/21 05/16/21 19:00 19:15 19:30 19:45 Temp 100.4 100.2 100.2 100.2 Pulse 69 69 67 66 B/P (MAP) 104/47 (66) 105/47 (66) 115/51 (72) 112/50 (70) Pulse Ox 98 98 98 98 05/16/21 05/16/21 05/16/21 05/16/21 19:52 20:00 20:05 20:15 Temp 100.2 100.2 100.0 Pulse 65 67 68 67 Resp 35 B/P (MAP) 109/67 (81) 132/78 (96) 136/62 (86) 115/51 (72) 136/64 (88) Pulse Ox 98 99 99 98 FiO2 100 8/20/21 05/16/21 05/16/21 05/16/21 20:30 20:35 20:45 20:55 Temp 100.0 100.0 Pulse 67 68 68 Resp 35 B/P (MAP) 119/53 (75) 117/52 (73) Pulse Ox 97 99 98 O2 Delivery Mechanical Ventilator Mechanical Ventilator 05/16/21 05/16/21 05/16/21 05/16/21 20:57 21:00 21:15 21:30 Temp 100.0 100.0 99.9 Pulse 68 70 69 67 B/P (MAP) 108/48 (68) 107/47 (67) 109/49 (69) Pulse Ox 98 98 98 FiO2 100 05/16/21 05/16/21 05/16/21 05/16/21 21:41 21:45 21:57 22:00 Temp 99.9 99.9 99.9 99.9 Pulse 66 66 63 62 B/P (MAP) 104/53 (70) 96/44 (61) 120/69 (86) 117/72 (87) 101/45 (63) 124/57 (79) 122/56 (78) Pulse Ox 98 97 99 98 05/16/21 05/16/21 05/16/21 05/16/21 22:15 22:16 22:30 22:45 Temp 99.9 99.9 99.9 Pulse 61 61 63 59 Resp 36 B/P (MAP) 118/53 (74) 97/42 (60) 123/55 (77) Pulse Ox 99 99 98 98 FiO2 100 05/16/21 05/16/21 05/16/21 05/16/21 23:00 23:15 23:17 23:30 Temp 99.9 99.9 99.9 Pulse 60 59 60 B/P (MAP) 118/52 (74) 115/50 (71) 115/50 (71) Pulse Ox 98 98 98 O2 Delivery Mechanical Ventilator 05/16/21 05/17/21 05/17/21 05/17/21 23:45 00:00 00:00 00:08 Temp 100.2 100.2 Pulse 60 60 68 61 Resp 35 B/P (MAP) 113/49 (70) 115/61 (79) 113/48 (69) Pulse Ox 99 98 99 FiO2 100 100 05/17/21 05/17/21 05/17/21 8/21/21 00:15 00:30 00:45 01:00 Temp 100.2 100.2 100.4 100.4 Pulse 60 61 60 60 B/P (MAP) 111/47 (68) 112/48 (69) 112/47 (68) 111/45 (67) Pulse Ox 99 99 98 98 05/17/21 05/17/21 05/17/21 05/17/21 01:15 01:30 01:45 01:53 Temp 100.6 100.6 100.6 100.6 Pulse 62 62 62 64 B/P (MAP) 112/45 (67) 112/46 (68) 110/46 (67) 109/50 (69) 96/38 (57) Pulse Ox 99 99 98 99 05/17/21 05/17/21 05/17/21 05/17/21 02:00 02:02 02:15 02:30 Temp 100.6 100.6 100.6 Pulse 63 62 59 63 Resp 35 B/P (MAP) 122/69 (86) 120/48 (72) 117/48 (71) 133/56 (81) Pulse Ox 99 99 99 100 FiO2 100 05/17/21 05/17/21 05/17/21 05/17/21 02:45 03:00 03:15 03:30 Temp 100.6 100.6 100.6 100.6 Pulse 63 64 64 64 B/P (MAP) 122/50 (74) 119/49 (72) 119/49 (72) 121/49 (73) Pulse Ox 99 99 98 99 05/17/21 05/17/21 05/17/21 05/17/21 03:45 04:00 04:05 04:15 Temp 100.6 100.4 100.6 Pulse 64 63 65 B/P (MAP) 117/48 (71) 115/53 (73) 116/47 (70) 117/47 (70) Pulse Ox 98 99 98 O2 Delivery Mechanical Ventilator 05/17/21 05/17/21 05/17/21 05/17/21 04:25 04:30 04:45 05:00 Temp 100.6 100.6 100.6 Pulse 65 64 63 66 Resp 35 B/P (MAP) 117/50 (72) 117/52 (73) 115/50 (71) Pulse Ox 99 99 99 100 FiO2 100 05/17/21 05/17/21 05/17/21 05/17/21 05:15 05:21 06:07 06:30 Temp 100.6 100.0 Pulse 68 68 123 92 Resp 36 B/P (MAP) 117/51 (73) 104/47 (66) Pulse Ox 100 98 96 FiO2 100 100 05/17/21 05/17/21 05/17/21 05/17/21 06:45 07:00 07:15 07:30 Temp 100.0 99.9 99.9 Pulse 99 91 95 B/P (MAP) 112/53 (72) 121/54 (76) 109/51 (70) Pulse Ox 97 98 96 O2 Delivery Mechanical Ventilator 05/17/21 05/17/21 05/17/21 05/17/21 07:30 07:30 07:45 08:00 Temp 99.7 99.5 99.5 Pulse 93 84 73 B/P (MAP) 103/48 (66) 98/47 (64) 86/50 (62) 97/44 (61) Pulse Ox 97 97 97 FiO2 100 05/17/21 05/17/21 05/17/21 05/17/21 08:15 08:30 08:45 09:00 Temp 99.5 99.5 99.5 98.1 Pulse 69 66 68 81 Resp 35 B/P (MAP) 96/46 (63) 114/58 (76) 96/44 (61) 129/66 (87) Pulse Ox 98 98 99 100 05/17/21 05/17/21 05/17/21 05/17/21 09:15 09:20 09:30 09:45 Temp 99.1 99.5 99.7 Pulse 69 79 84 92 Resp 35 B/P (MAP) 111/55 (73) 112/56 (74) 116/57 (76) Pulse Ox 100 98 100 100 05/17/21 05/17/21 05/17/21 05/17/21 10:00 10:15 10:30 10:45 Temp 99.7 99.9 99.7 99.7 Pulse 93 85 89 84 Resp 35 B/P (MAP) 121/66 (84) 113/52 (72) 108/49 (68) 104/48 (66) 130/61 (84) Pulse Ox 99 99 100 99 05/17/21 05/17/21 05/17/21 05/17/21 11:00 11:00 11:15 11:30 Temp 99.7 99.7 99.7 Pulse 70 79 70 73 Resp 35 B/P (MAP) 100/48 (65) 96/46 (63) 110/53 (72) Pulse Ox 98 98 98 98 FiO2 100 05/17/21 05/17/21 05/17/21 05/17/21 11:45 11:45 11:46 12:00 Temp 99.5 99.5 Pulse 87 68 Resp 35 B/P (MAP) 113/65 (81) 99/58 (72) 101/54 (70) Pulse Ox 91 95 O2 Delivery Mechanical Ventilator FiO2 90 05/17/21 05/17/21 05/17/21 05/17/21 12:01 12:10 12:16 12:31 Temp 99.5 99.5 99.5 Pulse 67 79 66 63 Resp 35 B/P (MAP) 100/53 (69) 95/52 (66) 101/56 (71) Pulse Ox 95 98 99 100 O2 Delivery Mechanical Ventilator 05/17/21 05/17/21 05/17/21 05/17/21 12:46 13:01 13:16 13:16 Temp 99.5 99.7 99.7 Pulse 63 63 62 79 Resp 35 B/P (MAP) 108/58 (75) 107/56 (73) 106/57 (73) Pulse Ox 100 100 100 98 FiO2 90 05/17/21 05/17/21 05/17/21 05/17/21 13:31 13:46 14:00 14:01 Temp 99.9 99.9 99.9 99.9 Pulse 64 64 66 66 Resp 35 B/P (MAP) 107/57 (74) 106/56 (73) 120/67 (84) 110/57 (74) 111/58 (75) Pulse Ox 100 100 100 100 05/17/21 05/17/21 05/17/21 05/17/21 14:16 14:31 14:46 15:01 Temp 99.9 100.0 100.2 100.2 Pulse 65 66 66 70 Resp 35 B/P (MAP) 111/57 (75) 109/54 (72) 113/58 (76) 116/58 (77) Pulse Ox 100 100 100 100 05/17/21 05/17/21 05/17/21 05/17/21 15:16 15:31 15:46 16:00 Temp 100.2 100.2 99.7 99.5 Pulse 66 102 78 88 B/P (MAP) 121/61 (81) 113/60 (77) 114/56 (75) 114/72 (86) 115/60 (78) Pulse Ox 100 99 98 96 05/17/21 05/17/21 05/17/21 05/17/21 16:01 16:03 16:16 16:21 Temp 99.5 99.3 Pulse 86 66 73 Resp 35 B/P (MAP) 109/56 (73) 102/54 (70) Pulse Ox 97 100 96 O2 Delivery Mechanical Ventilator FiO2 80 05/17/21 05/17/21 05/17/21 05/17/21 16:31 16:46 17:00 17:01 Temp 99.3 99.3 99.3 Pulse 70 70 67 Resp 35 B/P (MAP) 100/51 (67) 105/55 (72) 109/59 (76) Pulse Ox 96 96 97 FiO2 80 05/17/21 05/17/21 05/17/21 05/17/21 17:16 17:31 17:41 17:46 Temp 99.5 99.5 99.5 Pulse 65 64 70 63 Resp 35 B/P (MAP) 109/58 (75) 112/59 (76) 105/52 (69) Pulse Ox 98 99 98 94 FiO2 80 05/17/21 05/17/21 05/17/21 05/17/21 18:00 18:01 18:16 18:30 Temp 99.5 99.3 99.1 99.1 Pulse 72 72 71 78 B/P (MAP) 104/53 (70) 105/53 (70) 108/55 (72) 113/56 (75) 106/52 (70) Pulse Ox 94 94 98 98 05/17/21 05/17/21 05/17/21 05/17/21 18:45 18:57 19:00 19:15 Temp 99.1 99.0 99.1 Pulse 78 64 65 63 B/P (MAP) 116/57 (76) 109/55 (73) 111/57 (75) Pulse Ox 98 97 98 FiO2 80 05/17/21 05/17/21 05/17/21 05/17/21 19:30 19:45 20:00 20:02 Temp 99.1 99.1 99.1 99.1 Pulse 61 62 61 61 Resp 28 24 24 B/P (MAP) 115/58 (77) 102/57 (72) 117/58 (77) 115/57 (76) 114/58 (76) Pulse Ox 98 98 98 98 05/17/21 05/17/21 05/17/21 05/17/21 20:03 20:15 20:18 20:30 Temp 99.3 99.3 99.3 Pulse 60 61 62 63 Resp 35 24 21 B/P (MAP) 135/70 (91) 129/73 (91) 123/62 (82) 134/69 (90) Pulse Ox 99 99 99 98 FiO2 80 05/17/21 05/17/21 05/17/21 05/17/21 20:36 20:45 21:00 21:15 Temp 99.3 99.5 99.5 Pulse 62 63 62 Resp 28 15 23 B/P (MAP) 115/57 (76) 114/55 (74) 113/54 (73) Pulse Ox 98 97 98 O2 Delivery Mechanical Ventilator 05/17/21 05/17/21 05/17/21 05/17/21 21:15 21:30 21:45 22:00 Temp 99.5 99.5 99.7 Pulse 62 63 63 63 Resp 24 16 16 16 B/P (MAP) 123/86 (98) 107/52 (70) 104/59 (74) 109/54 (72) 111/55 (73) Pulse Ox 99 96 96 97 O2 Delivery Mechanical Ventilator 05/17/21 05/17/21 05/17/21 05/17/21 22:10 22:15 22:30 22:45 Temp 99.7 99.7 99.9 Pulse 62 62 62 62 Resp 35 22 B/P (MAP) 109/55 (73) 110/55 (73) 110/56 (74) Pulse Ox 98 98 98 98 FiO2 80 05/17/21 05/17/21 05/18/21 05/18/21 23:00 23:15 00:00 00:00 Temp 99.9 99.9 100.0 Pulse 62 63 63 B/P (MAP) 109/55 (73) 109/54 (72) 105/57 (73) 112/56 (74) Pulse Ox 98 98 98 O2 Delivery Mechanical Ventilator 05/18/21 05/18/21 05/18/21 05/18/21 00:03 00:15 00:30 00:45 Temp 100.2 100.2 100.2 Pulse 63 63 63 63 Resp 35 B/P (MAP) 110/55 (73) 111/56 (74) 109/54 (72) Pulse Ox 98 97 97 97 FiO2 80 05/18/21 05/18/21 05/18/21 05/18/21 01:00 01:15 01:30 01:45 Temp 100.2 100.2 100.2 100.2 Pulse 63 63 61 63 B/P (MAP) 109/54 (72) 111/55 (73) 102/51 (68) 109/52 (71) Pulse Ox 98 98 98 98 05/18/21 05/18/21 05/18/21 05/18/21 02:00 02:01 02:02 02:15 Pulse 96 65 Resp 35 B/P (MAP) 114/61 (78) 91/45 (60) 103/54 (70) Pulse Ox 95 94 94 FiO2 80 05/18/21 05/18/21 05/18/21 05/18/21 02:23 02:30 02:41 02:45 Temp 99.1 99.0 99.0 Pulse 66 62 60 B/P (MAP) 106/53 (70) 103/53 (70) 105/55 (72) 97/52 (67) Pulse Ox 94 93 95 FiO2 80 05/18/21 05/18/21 05/18/21 05/18/21 03:00 03:15 03:26 03:30 Temp 98.8 98.8 98.6 98.6 Pulse 58 58 58 58 B/P (MAP) 105/54 (71) 98/50 (66) 105/59 (74) 106/55 (72) 104/54 (71) Pulse Ox 96 96 97 97 05/18/21 05/18/21 05/18/21 05/18/21 03:45 04:00 04:15 04:20 Temp 98.4 98.4 98.4 Pulse 58 57 58 57 Resp 36 B/P (MAP) 107/55 (72) 103/56 (72) 108/55 (72) 108/55 (72) Pulse Ox 97 97 97 97 FiO2 80 05/18/21 05/18/21 05/18/21 05/18/21 04:30 04:41 04:45 05:00 Temp 98.4 98.4 98.4 Pulse 58 58 59 B/P (MAP) 107/55 (72) 107/54 (71) 108/54 (72) Pulse Ox 97 98 97 FiO2 80 05/18/21 05/18/21 05/18/21 05/18/21 05:03 05:15 05:30 05:45 Temp 98.4 98.4 98.4 98.2 Pulse 66 72 81 88 B/P (MAP) 109/60 (76) 114/56 (75) 118/58 (78) 117/59 (78) 118/60 (79) Pulse Ox 94 96 95 95 05/18/21 05/18/21 05/18/21 05/18/21 06:00 06:05 06:11 06:14 Temp 98.1 Pulse 100 93 Resp 38 B/P (MAP) 134/60 (84) 118/60 (79) Pulse Ox 91 90 O2 Delivery Mechanical Ventilator FiO2 80 80 05/18/21 05/18/21 05/18/21 05/18/21 06:30 06:45 07:00 07:15 Temp 97.7 97.9 97.9 98.1 Pulse 99 88 83 76 Resp 37 B/P (MAP) 124/64 (84) 116/57 (76) 123/59 (80) 110/56 (74) Pulse Ox 87 86 90 94 05/18/21 05/18/21 05/18/21 05/18/21 07:30 07:30 07:30 07:45 Temp 98.2 98.2 Pulse 87 88 B/P (MAP) 126/62 (83) 136/63 (87) Pulse Ox 96 97 O2 Delivery Mechanical Ventilator FiO2 80 05/18/21 05/18/21 05/18/21 05/18/21 08:00 08:15 08:30 08:45 Temp 98.4 98.4 98.6 98.6 Pulse 105 108 100 94 B/P (MAP) 147/75 (99) 143/67 (92) 134/61 (85) 119/56 (77) 151/70 (97) Pulse Ox 93 93 92 94 05/18/21 05/18/21 05/18/21 05/18/21 08:49 09:00 09:00 09:15 Temp 98.8 99.0 Pulse 93 91 93 98 Resp 35 35 B/P (MAP) 109/53 (71) 116/57 (76) Pulse Ox 94 95 94 92 O2 Delivery Mechanical Ventilator FiO2 70 05/18/21 05/18/21 05/18/21 05/18/21 09:30 09:45 10:00 10:15 Temp 99.0 99.1 99.3 99.3 Pulse 105 99 102 96 B/P (MAP) 123/61 (81) 120/60 (80) 128/64 (85) 111/58 (75) 123/63 (83) Pulse Ox 92 92 92 94 05/18/21 05/18/21 05/18/21 05/18/21 10:30 10:45 10:54 11:00 Temp 99.5 99.5 99.7 Pulse 99 95 93 97 Resp 35 35 B/P (MAP) 120/61 (80) 111/58 (75) 118/64 (82) Pulse Ox 93 96 94 95 FiO2 70 05/18/21 05/18/21 05/18/21 05/18/21 11:15 11:30 11:45 12:00 Temp 99.9 100.2 100.2 100.4 Pulse 84 99 97 105 Resp 35 B/P (MAP) 103/56 (72) 130/68 (88) 125/66 (85) 141/77 (98) 135/71 (92) Pulse Ox 95 91 90 91 05/18/21 05/18/21 05/18/21 05/18/21 12:15 12:15 12:15 12:30 Temp 100.6 100.6 Pulse 94 96 B/P (MAP) 120/64 (82) 124/67 (86) Pulse Ox 91 91 O2 Delivery Mechanical Ventilator FiO2 70 05/18/21 05/18/21 05/18/21 05/18/21 12:45 13:00 13:15 13:29 Temp 100.8 100.9 100.9 Pulse 108 122 128 93 Resp 35 35 B/P (MAP) 129/69 (89) 165/83 (110) 152/76 (101) Pulse Ox 90 90 93 94 FiO2 70 05/18/21 05/18/21 05/18/21 05/18/21 13:30 13:45 14:00 14:15 Temp 100.9 100.6 100.4 100.2 Pulse 110 109 100 93 Resp 35 B/P (MAP) 112/59 (76) 107/58 (74) 111/63 (79) 101/56 (71) 103/57 (72) Pulse Ox 92 94 95 96 05/18/21 05/18/21 05/18/21 05/18/21 14:30 14:45 15:00 15:15 Temp 99.9 99.9 99.7 99.5 Pulse 94 88 87 86 Resp 35 B/P (MAP) 98/56 (70) 93/54 (67) 98/56 (70) 98/56 (70) Pulse Ox 95 93 94 94 05/18/21 05/18/21 05/18/21 05/18/21 15:30 15:45 16:00 16:15 Temp 99.3 99.1 99.1 99.1 Pulse 83 80 78 76 Resp 35 B/P (MAP) 95/55 (68) 95/54 (68) 101/54 (70) 91/52 (65) 94/54 (67) Pulse Ox 95 93 94 94 05/18/21 05/18/21 05/18/21 05/18/21 16:30 16:30 16:35 16:35 Temp 99.0 Pulse 76 93 Resp 35 B/P (MAP) 89/53 (65) Pulse Ox 95 94 O2 Delivery Mechanical Ventilator FiO2 70 70 05/18/21 05/18/21 05/18/21 05/18/21 16:45 17:00 17:15 17:30 Temp 99.0 99.0 99.0 98.8 Pulse 74 73 72 71 Resp 35 B/P (MAP) 92/53 (66) 92/53 (66) 91/51 (64) 91/50 (64) Pulse Ox 96 98 94 93 05/18/21 05/18/21 05/18/21 05/18/21 17:45 18:00 18:01 18:03 Temp 98.8 98.6 98.6 Pulse 73 78 93 76 Resp 35 35 B/P (MAP) 96/52 (67) 84/36 (52) 93/52 (66) 102/53 (69) 101/53 (69) Pulse Ox 92 91 94 91 FiO2 70 05/18/21 05/18/21 05/18/21 05/18/21 18:15 19:00 19:15 19:30 Temp 98.6 98.4 98.2 98.2 Pulse 81 70 71 72 B/P (MAP) 110/59 (76) 104/56 (72) 106/57 (73) 107/58 (74) Pulse Ox 91 87 87 87 05/18/21 05/18/21 05/18/21 05/18/21 19:45 19:58 20:00 20:00 Temp 98.2 Pulse 71 B/P (MAP) 108/57 (74) Pulse Ox 88 O2 Delivery Mechanical Ventilator Mechanical Ventilator FiO2 70 05/18/21 05/18/21 05/18/21 05/18/21 20:00 20:15 20:25 20:30 Temp 98.2 98.2 98.2 Pulse 70 70 69 69 Resp 35 B/P (MAP) 100/52 (68) 108/58 (75) 107/57 (74) 109/58 (75) Pulse Ox 88 89 89 88 FiO2 70 05/18/21 05/18/21 05/18/21 05/18/21 20:44 20:45 21:00 21:15 Temp 98.2 98.2 98.1 Pulse 69 70 66 65 Resp 35 B/P (MAP) 105/56 (72) 105/56 (72) 103/56 (72) Pulse Ox 89 87 89 89 O2 Delivery Mechanical Ventilator 05/18/21 05/18/21 05/18/21 05/18/21 21:30 21:45 22:00 22:15 Temp 98.1 98.1 97.7 97.3 Pulse 64 63 85 71 B/P (MAP) 100/54 (69) 99/54 (69) 103/52 (69) 105/58 (74) 122/71 (88) Pulse Ox 88 89 84 89 05/18/21 05/18/21 05/18/21 05/18/21 22:30 22:33 22:45 23:00 Temp 97.3 97.3 97.3 Pulse 64 64 63 63 Resp 36 B/P (MAP) 103/57 (72) 99/56 (70) 100/56 (71) Pulse Ox 88 88 88 87 FiO2 70 05/18/21 05/18/21 05/18/21 05/18/21 23:02 23:15 23:30 23:45 Temp 97.3 97.3 97.3 Pulse 64 63 63 B/P (MAP) 103/57 (72) 103/57 (72) 103/56 (72) Pulse Ox 87 87 87 O2 Delivery Mechanical Ventilator 05/19/21 05/19/21 05/19/21 05/19/21 00:00 00:00 00:00 00:15 Temp 97.5 97.5 Pulse 64 64 B/P (MAP) 98/56 (70) 103/56 (72) 105/57 (73) Pulse Ox 87 87 O2 Delivery Mechanical Ventilator FiO2 70 05/19/21 05/19/21 05/19/21 05/19/21 00:30 00:45 01:00 01:15 Temp 97.5 97.5 97.5 97.5 Pulse 64 64 64 64 B/P (MAP) 103/56 (72) 103/56 (72) 102/55 (71) 102/55 (71) Pulse Ox 86 88 87 88 05/19/21 05/19/21 05/19/21 05/19/21 01:30 01:45 01:58 02:00 Temp 97.5 97.5 97.7 Pulse 63 63 64 64 Resp 39 B/P (MAP) 103/56 (72) 99/54 (69) 90/46 (61) 101/54 (70) Pulse Ox 88 87 90 86 FiO2 70 05/19/21 05/19/21 05/19/21 05/19/21 02:15 02:30 02:45 03:00 Temp 97.7 97.7 97.5 97.7 Pulse 64 63 63 63 B/P (MAP) 102/55 (71) 103/56 (72) 102/55 (71) 101/54 (70) Pulse Ox 86 87 86 85 05/19/21 05/19/21 05/19/21 05/19/21 03:15 03:30 03:45 03:46 Temp 97.5 97.5 97.5 97.5 Pulse 65 63 62 62 B/P (MAP) 108/58 (75) 101/53 (69) 104/55 (71) 95/44 (61) 102/54 (70) Pulse Ox 87 87 88 86 05/19/21 05/19/21 05/19/21 05/19/21 04:00 04:00 04:09 04:15 Temp 97.5 97.3 Pulse 70 75 73 Resp 36 B/P (MAP) 101/50 (67) 111/54 (73) 108/55 (72) Pulse Ox 88 88 86 O2 Delivery Mechanical Ventilator FiO2 70 05/19/21 05/19/21 05/19/21 05/19/21 04:30 04:45 04:47 04:55 Temp 97.3 97.3 97.3 Pulse 77 79 84 B/P (MAP) 113/55 (74) 118/60 (79) 124/55 (78) 121/62 (81) Pulse Ox 86 85 91 FiO2 85 05/19/21 05/19/21 05/19/21 05/19/21 05:00 05:15 05:30 05:45 Temp 97.3 97.5 97.5 97.5 Pulse 65 62 62 60 B/P (MAP) 104/54 (71) 100/52 (68) 96/50 (65) 98/51 (67) Pulse Ox 89 89 88 93 05/19/21 05/19/21 05/19/21 05/19/21 05:52 06:00 06:02 06:15 Temp 97.5 97.7 97.7 Pulse 60 60 60 61 Resp 37 B/P (MAP) 90/45 (60) 95/46 (62) 101/51 (68) 96/50 (65) 97/50 (66) Pulse Ox 94 93 93 94 FiO2 100 05/19/21 05/19/21 05/19/21 05/19/21 06:30 06:45 07:00 07:04 Temp 97.7 97.9 97.9 Pulse 61 61 62 B/P (MAP) 100/51 (67) 103/52 (69) 102/52 (69) Pulse Ox 94 95 95 FiO2 100 05/19/21 05/19/21 05/19/21 05/19/21 07:15 07:30 07:45 08:00 Temp 97.9 98.1 98.1 98.1 Pulse 64 66 64 75 B/P (MAP) 103/52 (69) 109/55 (73) 105/53 (70) 110/58 (75) 120/60 (80) Pulse Ox 95 95 95 96 05/19/21 05/19/21 05/19/21 05/19/21 08:00 08:15 08:30 08:45 Temp 98.1 98.1 97.9 Pulse 76 84 83 B/P (MAP) 119/57 (77) 126/60 (82) 125/59 (81) Pulse Ox 96 96 94 O2 Delivery Mechanical Ventilator 05/19/21 05/19/21 05/19/21 05/19/21 09:00 09:15 09:30 09:45 Temp 97.9 97.9 97.9 97.9 Pulse 80 81 80 76 B/P (MAP) 123/58 (79) 122/58 (79) 129/62 (84) 127/62 (83) Pulse Ox 94 93 92 91 05/19/21 05/19/21 05/19/21 05/19/21 09:57 09:58 10:00 10:15 Temp 97.9 98.1 Pulse 77 77 76 85 Resp 26 37 B/P (MAP) 124/62 (82) 133/64 (87) 126/62 (83) Pulse Ox 91 91 90 92 O2 Delivery Mechanical Ventilator FiO2 100 100 05/19/21 05/19/21 05/19/21 05/19/21 10:30 10:45 11:00 11:15 Temp 98.1 98.2 98.4 98.6 Pulse 90 81 81 82 B/P (MAP) 133/63 (86) 125/60 (81) 127/60 (82) 126/61 (82) Pulse Ox 91 90 90 90 05/19/21 05/19/21 05/19/21 05/19/21 11:30 11:45 12:00 12:00 Temp 98.6 98.8 99.0 Pulse 82 75 72 B/P (MAP) 124/60 (81) 114/55 (74) 111/48 (69) 107/52 (70) Pulse Ox 89 91 91 O2 Delivery Mechanical Ventilator 05/19/21 05/19/21 05/19/21 05/19/21 12:15 12:24 12:30 12:45 Temp 99.1 99.1 99.3 Pulse 70 82 68 68 Resp 37 B/P (MAP) 102/50 (67) 101/51 (68) 102/51 (68) Pulse Ox 92 89 93 94 FiO2 100 05/19/21 05/19/21 05/19/21 05/19/21 13:00 13:15 13:30 13:45 Temp 99.3 99.3 99.5 99.5 Pulse 66 66 64 65 B/P (MAP) 99/50 (66) 101/51 (68) 100/50 (67) 100/51 (67) Pulse Ox 95 96 97 97 05/19/21 05/19/21 05/19/21 05/19/21 14:00 14:15 14:30 14:45 Temp 99.5 99.5 99.5 99.5 Pulse 64 65 65 65 B/P (MAP) 97/46 (63) 100/52 (68) 100/51 (67) 101/52 (68) 102/51 (68) Pulse Ox 97 97 96 96 05/19/21 05/19/21 05/19/21 05/19/21 15:00 15:15 15:20 15:30 Temp 99.5 99.5 99.5 Pulse 66 64 66 83 Resp 37 B/P (MAP) 101/52 (68) 102/52 (69) 127/65 (85) Pulse Ox 96 97 96 99 FiO2 100 05/19/21 05/19/21 05/19/21 05/19/21 15:45 16:00 16:00 16:15 Temp 99.5 99.5 99.3 Pulse 82 86 93 B/P (MAP) 121/61 (81) 106/64 (78) 130/63 (85) 126/63 (84) Pulse Ox 98 97 96 O2 Delivery Mechanical Ventilator 05/19/21 05/19/21 05/19/21 05/19/21 16:30 16:45 16:50 17:00 Temp 99.1 99.1 99.0 Pulse 90 97 97 91 Resp 35 B/P (MAP) 133/64 (87) 131/64 (86) 125/60 (81) Pulse Ox 94 96 95 93 FiO2 100 05/19/21 05/19/21 05/19/21 05/19/21 17:15 17:17 17:30 17:45 Temp 99.0 99.0 99.0 Pulse 96 90 91 Resp 44 B/P (MAP) 130/64 (86) 125/62 (83) 132/67 (88) Pulse Ox 93 92 93 92 05/19/21 05/19/21 05/19/21 05/19/21 18:00 18:07 18:15 18:30 Temp 99.0 99.0 99.0 Pulse 89 98 78 72 Resp 36 B/P (MAP) 107/60 (76) 111/56 (74) 107/55 (72) 127/63 (84) Pulse Ox 93 9 94 93 FiO2 100 05/19/21 05/19/21 05/19/21 05/19/21 18:45 20:00 20:00 20:13 Temp 99.1 99.1 Pulse 69 62 62 Resp 37 B/P (MAP) 103/54 (70) 95/50 (65) 99/53 (68) Pulse Ox 94 98 98 O2 Delivery Mechanical Ventilator FiO2 100 05/19/21 05/19/21 05/19/21 05/19/21 20:15 20:15 20:30 20:45 Temp 99.3 99.3 99.3 Pulse 62 62 62 B/P (MAP) 99/52 (68) 99/52 (68) 100/53 (69) Pulse Ox 99 98 99 FiO2 100 05/19/21 05/19/21 05/19/21 05/19/21 21:00 21:15 21:30 21:45 Temp 99.3 99.3 99.3 99.3 Pulse 61 60 61 61 B/P (MAP) 99/52 (68) 98/52 (67) 97/51 (66) 97/51 (66) Pulse Ox 99 99 99 99 05/19/21 05/19/21 05/19/21 05/19/21 22:00 22:04 22:05 22:15 Temp 99.3 99.3 Pulse 61 62 61 60 Resp 37 36 B/P (MAP) 91/51 (64) 95/51 (66) 97/51 (66) Pulse Ox 99 98 99 98 O2 Delivery Mechanical Ventilator FiO2 100 100 05/19/21 05/19/21 05/19/21 05/19/21 22:30 22:45 23:00 23:13 Temp 99.3 99.3 99.3 Pulse 61 61 61 B/P (MAP) 94/50 (65) 93/50 (64) 93/50 (64) Pulse Ox 99 99 99 O2 Delivery Mechanical Ventilator 05/19/21 05/19/21 05/19/21 05/19/21 23:15 23:15 23:30 23:45 Temp 99.3 99.3 99.3 Pulse 61 60 61 60 Resp 35 B/P (MAP) 92/50 (64) 93/50 (64) 91/49 (63) Pulse Ox 100 100 100 100 FiO2 100 05/20/21 05/20/21 05/20/21 05/20/21 00:00 00:01 00:15 00:30 Temp 99.3 99.3 99.5 Pulse 60 60 60 60 Resp 35 B/P (MAP) 88/46 (60) 89/49 (62) 90/49 (63) 91/50 (64) Pulse Ox 100 100 100 100 FiO2 100 05/20/21 05/20/21 05/20/21 05/20/21 00:45 01:00 01:15 01:30 Temp 99.5 99.5 99.5 99.5 Pulse 61 62 67 70 B/P (MAP) 89/49 (62) 87/48 (61) 95/51 (66) 98/52 (67) Pulse Ox 100 99 99 98 05/20/21 05/20/21 05/20/21 05/20/21 01:45 02:00 02:15 02:30 Temp 99.3 99.1 99.1 99.0 Pulse 71 70 67 65 B/P (MAP) 100/52 (68) 109/57 (74) 96/51 (66) 94/49 (64) 100/53 (69) Pulse Ox 98 97 97 96 05/20/21 05/20/21 05/20/21 05/20/21 02:45 03:00 03:15 03:30 Temp 99.0 98.8 98.6 98.6 Pulse 65 65 64 65 B/P (MAP) 96/51 (66) 96/52 (67) 95/52 (66) 93/50 (64) Pulse Ox 95 95 96 95 05/20/21 05/20/21 05/20/21 05/20/21 03:45 04:00 04:00 04:15 Temp 98.4 98.2 98.2 Pulse 64 64 64 64 Resp 36 B/P (MAP) 96/53 (67) 109/55 (73) 94/51 (65) 94/51 (65) Pulse Ox 97 95 97 97 FiO2 100 05/20/21 05/20/21 05/20/21 05/20/21 04:30 04:45 05:00 05:00 Temp 98.4 98.4 98.4 Pulse 64 64 82 65 Resp 35 B/P (MAP) 94/51 (65) 94/51 (65) 155/60 (91) Pulse Ox 97 96 98 92 FiO2 100 05/20/21 05/20/21 05/20/21 05/20/21 05:00 05:15 05:30 05:43 Temp 98.2 98.2 Pulse 77 78 75 Resp 35 B/P (MAP) 110/57 (74) 111/58 (75) Pulse Ox 97 96 96 O2 Delivery Mechanical Ventilator FiO2 100 05/20/21 05/20/21 05/20/21 05/20/21 05:45 06:00 06:15 06:30 Temp 98.2 98.2 98.2 98.2 Pulse 79 77 78 81 B/P (MAP) 112/57 (75) 117/66 (83) 112/56 (74) 114/58 (76) 111/57 (75) Pulse Ox 95 94 93 92 05/20/21 05/20/21 05/20/21 05/20/21 06:45 08:00 08:31 08:32 Temp 98.2 Pulse 71 74 Resp 35 B/P (MAP) 109/54 (72) Pulse Ox 91 97 O2 Delivery Mechanical Ventilator Mechanical Ventilator FiO2 100 90 05/20/21 08:32 Pulse 74 Resp 35 Pulse Ox 97 FiO2 100 Intake and Output 05/20/21 05:59 Intake Total 4377 ml Output Total 3550 ml Balance 827 ml VTE VTE Risk Total Score: 5 VTE Risk Score VTE Risk: Score 0-1 = Low Risk (Aggressive mobilization; early ambulation; no VTE prophylaxis required) Score 2: Moderate Risk (Intermittent/Pneumatic Compression Device OR Lovenox/Heparin/Coumadin) Score 3-4: High Risk (Intermittent/Pneumatic Compression Device AND Lovenox/Heparin/Coumadin) Score > or =5: Highest Risk (Intermittent/Pneumatic Compression Device AND Lovenox/Heparin/Coumadin) Antico:Hep/LMWH/Coum/Xarelto: Yes Mechanical device ordered: Yes VTE VTE Present on Admission: No Currently receiving anticoagul: Yes VTE Risk Total Score: 5 Antico:Hep/LMWH/Coum/Xarelto: Yes Mechanical device ordered: Yes Assessment/Plan Assessment/Plan Assessment/Plan ASSESSMENT / PLAN: 1) Acute Hypoxemic Respiratory Failure / Severe ARDS: Pt remains intubated (since 05/06/21) and sedated at this time. 2) COVID-19 +: Pt has completed Tx with Remdesivir, and remains on Dexamethasone for now. She would benefit from ECMO and/or lung transplant evaluation. However, due to the Pandemic and COVID surge, no beds are available for transfer to a Higher Level of Care in [place], [place], or [place] at this time. She still remains on the "wait list" for several facilities, we are con't to prone the pt as needed daily for 6 hours, if O2 sat >90% in supine position consider stopping NMBA. 3) Remains febrile and her Midline was removed and tip cultured. Vancomycin and Cefepime per ID. 4) Hyperglycemia: Exacerbated by Steroids and TF. HgbA1c is 6.5. 5) tube feeds 6) GI and DVT prophylaxis: Will continue Pepcid and Lovenox-full dose. 7. NG advanced 8. replete K, Mg Critical care time spent examining the patient, reviewing reviewing labs, reviewing x-ray, discussing the case with MANAGER RESOURCE, discussing the case with RT, documentation 60 minutes. Plan 35 yo Female with hypoxemic respiratory failure/ARDS - COVID-19 infection BIPAP/therapeutic protocol completed ultimately requiring intubation 05/06 no significant improvement noted chart review indicated patient considered for transfer to tertiary center/ECMO but no beds available in [facility] or multiple neighboring states ongoing assessment for bed availability PMHx includes but is not limited to: obesity (BMI 34) Chart and additional data reviewed: Assessment/Plan Severe hypoxemia/ARDS from COVID-19 infection some small measure of improvement noted in oxygenation today and not proned for >48hours per staff most recent ABG demonstrating adequate oxygenation but suboptimal ventilation on AC 35/350/90/16 at this time dec FI02 to 80 and check ABG hope to see improvement in ventilation and maintain adequate oxygenation. calls to tertiary centers made daily by report no bed available DVT and GI prophylaxis Bedside rounds completed with nurse and bedside RT - All issues addressed at this time Patient seen through remote audiovisual assessment through HIPPA compliant technology Cumulative non-procedural critical care time spent in directed patient care 60 minutes ODILIA SMITH DO May 20, 2021 12:38
[2021-05-20 13:03] LABS: ABG PCO2 58.2 mmHg (35.0-45.0); ABG PH 7.342 (7.350-7.450); BE(B) 4.1 mmol/L (-2.0-2.0); HCO3act 30.8 mmol/L (22.0-26.0); pO2 43.1 mmHg (80.0-100.0)
--- NOTE | 2021-05-20 13:32 | PRM.PN ---
Subjective Events since last encounter fever has trended down , t max 99.3 remains intubated and heavily sedated requiring Fio2 of 80% thick tannish ET secretions reported not on pressors currently CXR remains with covid infiltrates unchanged from before Assessment & Plan Provider Note: 35 yo F was admitted with COVID , currently intubated and having fevers. IMPRESSION: -acute hypoxemic resp failure. intubated on 05/06. -Fevers in a ICU patient since 05/10, likely due to VAP vs COVID organizing pneumonia. -increased ventilatory requirement noted. on FiO2 of 80% -midline was removed on 05/14. catheter tip and B cx are neg -COVID diagnosed on 04/29 s/p Remdesevir. -D dimer has trended down -HIV neg RECOMMENDATIONS: -follow Bcx , ngtd -if remains febrile then Add Micafungin 100 mg q24 -cont Vanc and Cefepime. duration typically 7-10 days, started on 05/14 -cont Steroids for the COVID pneumonia. thanks for the consult we will follow peripherally Please call with any questions Fanta Williamson Md Infectious Diseases cell: [phone] FANTA WILLIAMSON MD May 20, 2021 13:32
[2021-05-20] MEDS: LIPID EMULSION IV SCH (17:00)
[2021-05-20] MEDS ORDERED: NS 500ML 500 ML IV ONE (21:16)
[2021-05-21] VITALS (78 sets, daily range): BP systolic 80–147; BP diastolic 42–70
[2021-05-21 05:18] LABS: CALCIUM 8.4 mg/dL (8.4-10.5); CARBON DIOXIDE 32.2 mmol/L (20.0-32)
[2021-05-21 05:19] LABS: MEAN CORP HGB 30.2 pg (26-34); PLATELET COUNT 241 10^3/uL (150-400); RED CELL DISTRIBUTION WIDTH 14.2 % (11.5-14.5)
[2021-05-21] MEDS: PRECEDEX 400 MCG/100 ML INJECT 100 ML IV SCH ×2 (05:30→17:48)
[2021-05-21 06:44] LABS: ABG PH 7.255 (7.350-7.450)
[2021-05-21 06:45] LABS: ABG PCO2 72.2 mmHg (35.0-45.0); HCO3act 31.3 mmol/L (22.0-26.0); pO2 61.5 mmHg (80.0-100.0)
--- NOTE | 2021-05-21 08:19 | DIREP ---
PROCEDURE:CHEST 1 VIEW COMPARISON:[facility], CR, XRAY CHEST SINGLE VW, 05/20/2021, 07:04 AM. [facility], CR, XRAY CHEST SINGLE VW, 05/18/2021, 07:01 AM. INDICATIONS:covid FINDINGS: LUNGS/PLEURA:Stable ET tube. Stable diffuse bilateral infiltrates. No effusions. VASCULATURE:Normal. Unremarkable pulmonary vasculature. CARDIAC:Normal. No cardiac silhouette abnormality or cardiomegaly. MEDIASTINUM:Normal. No visible mass or adenopathy. BONES:Normal. No fracture or visible bony lesion. OTHER:Stable left subclavian catheter and NG tube. EKG leads overlie the chest. CONCLUSION:No significant change since yesterday. Continued findings consistent with Covid 19 pneumonia. Dictated by: Perez Mayorga M.D. on 05/21/2021 at 08:16 AM
[2021-05-21] MEDS: COLACE NG SCH ×2 (09:00→21:00)
[2021-05-21] MEDS: LASIX IV SCH (09:00)
[2021-05-21] MEDS: PEPCID IV SCH ×2 (09:00→21:13)
[2021-05-21] MEDS: MAXIPIME 2 GM in NS 100ML 100 ML IV SCH ×2 (09:00→21:12)
[2021-05-21] MEDS: LOVENOX SQ SCH ×2 (09:07→21:05)
--- NOTE | 2021-05-21 09:23 | PRM.PN ---
Subjective Subjective Date: May 21, 2021 Time: 08:00 Subjective Remains intubated, sedated. Currently on 90% FiO2, high PEEP. High sed rate, low tidal volume. 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 VTE VTE Risk Total Score: 5 VTE Risk Score VTE Risk: Score 0-1 = Low Risk (Aggressive mobilization; early ambulation; no VTE prophylaxis required) Score 2: Moderate Risk (Intermittent/Pneumatic Compression Device OR Lovenox/Heparin/Coumadin) Score 3-4: High Risk (Intermittent/Pneumatic Compression Device AND Lovenox/Heparin/Coumadin) Score > or =5: Highest Risk (Intermittent/Pneumatic Compression Device AND Lovenox/Heparin/Coumadin) Antico:Hep/LMWH/Coum/Xarelto: Yes Mechanical device ordered: Yes Review of Systems Other Unable to obtain, intubated sedated Allergies: Coded Allergies: ibuprofen (Verified Allergy, Unknown, 04/29/21) naproxen (Verified Allergy, Unknown, 04/29/21) Objective Vitals and I/O Vital Sign - Last 24 Hours 05/20/21 05/20/21 05/20/21 05/20/21 09:30 09:45 10:00 10:02 Temp 98.6 98.8 99.0 99.0 Pulse 70 76 80 81 B/P (MAP) 110/61 (77) 117/63 (81) 119/64 (82) 121/65 (83) Pulse Ox 93 92 91 90 05/20/21 05/20/21 05/20/21 05/20/21 10:15 10:30 10:45 11:00 Temp 99.0 99.0 99.0 99.0 Pulse 90 80 98 103 B/P (MAP) 131/69 (89) 119/64 (82) 138/71 (93) 139/70 (93) Pulse Ox 91 90 90 90 05/20/21 05/20/21 05/20/21 05/20/21 11:15 11:30 11:33 11:41 Temp 99.0 99.0 Pulse 101 97 98 Resp 38 B/P (MAP) 139/70 (93) 132/68 (89) Pulse Ox 91 90 91 FiO2 90 80 05/20/21 05/20/21 05/20/21 05/20/21 11:45 12:00 12:00 12:02 Temp 99.1 99.1 99.1 Pulse 94 90 91 B/P (MAP) 122/64 (83) 120/62 (81) 119/62 (81) Pulse Ox 87 89 87 O2 Delivery Mechanical Ventilator 05/20/21 05/20/21 05/20/21 05/20/21 12:15 12:30 12:45 12:45 Temp 99.1 99.3 99.3 Pulse 87 81 76 B/P (MAP) 114/59 (77) 110/58 (75) 104/57 (73) Pulse Ox 86 87 88 FiO2 90 05/20/21 05/20/21 05/20/21 05/20/21 13:00 13:15 13:30 13:45 Temp 99.5 99.5 99.7 99.7 Pulse 73 70 69 69 B/P (MAP) 95/53 (67) 93/54 (67) 93/53 (66) 93/53 (66) Pulse Ox 89 91 93 95 05/20/21 05/20/21 05/20/21 05/20/21 14:00 14:02 14:10 14:15 Temp 99.7 99.7 99.9 Pulse 68 69 68 90 Resp 38 B/P (MAP) 94/53 (67) 95/54 (68) 117/69 (85) Pulse Ox 95 96 95 95 FiO2 90 05/20/21 05/20/21 05/20/21 05/20/21 14:30 14:45 15:00 15:15 Temp 99.7 99.5 99.5 99.5 Pulse 69 71 68 74 B/P (MAP) 105/58 (74) 110/60 (77) 107/59 (75) 115/63 (80) Pulse Ox 97 97 97 96 05/20/21 05/20/21 05/20/21 05/20/21 15:30 15:45 16:00 16:02 Temp 99.5 99.5 99.3 99.3 Pulse 70 67 65 66 B/P (MAP) 106/57 (73) 106/58 (74) 102/56 (71) 102/56 (71) Pulse Ox 94 94 93 93 05/20/21 05/20/21 05/20/21 05/20/21 16:07 16:15 16:30 16:45 Temp 99.3 99.3 99.1 Pulse 65 64 64 B/P (MAP) 103/57 (72) 105/58 (74) 104/58 (73) Pulse Ox 93 93 94 O2 Delivery Mechanical Ventilator 05/20/21 05/20/21 05/20/21 05/20/21 17:00 17:00 17:15 17:30 Temp 99.1 99.1 99.1 Pulse 64 65 63 64 Resp 38 B/P (MAP) 105/59 (74) 106/59 (75) 103/58 (73) Pulse Ox 95 95 96 96 FiO2 90 05/20/21 05/20/21 05/20/21 05/20/21 17:45 18:00 18:02 18:15 Temp 99.1 99.0 99.0 99.0 Pulse 63 64 60 63 B/P (MAP) 108/60 (76) 107/59 (75) 108/59 (75) 108/60 (76) Pulse Ox 96 96 96 96 05/20/21 05/20/21 05/20/21 05/20/21 18:30 19:00 19:15 19:30 Temp 99.0 98.8 98.8 98.8 Pulse 61 63 64 67 Resp 26 B/P (MAP) 109/59 (76) 110/60 (77) 111/60 (77) 119/64 (82) Pulse Ox 96 95 94 97 05/20/21 05/20/21 05/20/21 05/20/21 19:34 19:45 19:50 19:50 Temp 98.6 Pulse 63 64 56 Resp 36 26 26 B/P (MAP) 113/61 (78) Pulse Ox 97 95 97 O2 Delivery Mechanical Ventilator FiO2 90 100 05/20/21 05/20/21 05/20/21 05/20/21 20:00 20:02 20:15 20:30 Temp 98.6 98.6 98.6 98.6 Pulse 64 64 64 62 B/P (MAP) 114/61 (78) 114/61 (78) 110/60 (77) 111/60 (77) Pulse Ox 94 94 93 93 05/20/21 05/20/21 05/20/21 05/20/21 20:45 21:00 21:00 21:15 Temp 98.4 98.4 Pulse 64 61 65 62 Resp 26 37 B/P (MAP) 114/61 (78) 112/61 (78) 112/60 (77) Pulse Ox 92 96 91 93 O2 Delivery Mechanical Ventilator FiO2 90 05/20/21 05/20/21 05/20/21 05/20/21 21:30 21:45 22:00 22:02 Temp 98.4 98.4 98.4 98.4 Pulse 63 63 62 62 Resp 26 B/P (MAP) 113/60 (77) 112/61 (78) 111/61 (78) 110/60 (77) Pulse Ox 94 94 94 95 05/20/21 05/21/21 05/21/21 05/21/21 22:12 00:12 00:12 01:30 Pulse 61 58 67 Resp 37 26 37 Pulse Ox 95 98 95 O2 Delivery Mechanical Ventilator FiO2 90 100 90 05/21/21 05/21/21 05/21/21 05/21/21 03:36 03:56 03:56 05:34 Pulse 55 55 100 Resp 38 35 37 Pulse Ox 97 97 94 O2 Delivery Mechanical Ventilator FiO2 90 100 90 05/21/21 07:54 Pulse 70 Resp 38 Pulse Ox 91 O2 Delivery Mechanical Ventilator FiO2 90 Intake and Output 05/21/21 07:00 Intake Total 5554 ml Output Total 5400 ml Balance 154 ml General: Other (Intubated sedated.) HEENT: Atraumatic, PERRLA, EOMI Neck: Supple, No JVD Lungs: Other (Coarse bilateral breath sounds, respirations non labored) Heart: No murmurs Abdomen: Normal bowel sounds, Soft Extremities: No clubbing, No cyanosis Skin: No rashes, No breakdown Neuro: Normal speech, Strength at 5/5 X4 ext, Other (Intubated sedated.) Psych/Mental Status: Other (Intubated sedated.) All Results(Lab/Rad) Laboratory Tests Test 05/02/21 06:37 05/02/21 08:25 White Blood Count 7.6 10^3/uL Red Blood Count 4.62 10^6/uL Hemoglobin 13.6 g/dL Hematocrit 40.6 % Mean Corpuscular Volume 87.9 fL Mean Corpuscular Hemoglobin 29.4 pg Mean Corpuscular Hemoglobin Concent 33.5 g/dL Red Cell Distribution Width 12.0 % Platelet Count 268 10^3/uL Mean Platelet Volume 10.5 fL Neutrophils (%) (Auto) 82.9 % Lymphocytes (%) (Auto) 11.7 % Monocytes (%) (Auto) 5.4 % Neutrophils # (Auto) 6.3 10^3/uL Lymphocytes # (Auto) 0.89 10^3/uL1 Monocytes # (Auto) 0.4 10^3/uL Absolute Immature Granulocyte (auto 0.12 10^3 u/L Absolute Eosinophils (auto) 0.0 10^3/uL Immature Granulocytes % 1.60 % Eosinophils % 0.0 % Basophils % 0.0 % Basophils # 0.0 10^3/uL Sodium Level 140 mmol/L Potassium Level 4.7 mmol/L Chloride Level 104.0 mmol/L Carbon Dioxide Level 27.6 mmol/L Anion Gap 13.1 Blood Urea Nitrogen 14 mg/dL Creatinine 0.62 mg/dL Estimated GFR () 131.8 Est GFR (CKD-EPI)(Non-Afr [place]) 108.9 BUN/Creatinine Ratio 22.0 Glucose Level 121 mg/dL Calcium Level 8.8 mg/dL Total Bilirubin 0.4 mg/dL Aspartate Amino Transf (AST/SGOT) 26 U/L Alanine Aminotransferase (ALT/SGPT) 37 U/L Alkaline Phosphatase 42 U/L Total Protein 6.7 g/dL Albumin 2.5 g/dL Globulin 4.2 Albumin/Globulin Ratio 0.595 Blood Gas Sample Site RT RADIAL ARTERY Blood Gas pH 7.405 Blood Gas PCO2 41.1 mmHg Blood Gas PO2 82.5 mmHg Blood Gas HCO3 25.2 mmol/L Blood Gas Base Excess 0.4 mmol/L Lucas Test POSITIVE Arterial Blood Oxygen Saturation 95.5 % Deoxyhemoglobin 4.5 % Carboxyhemoglobin 0.6 % Methemoglobin 0.3 % Total Hemoglobin 14.6 % Total Oxygen Concentration 19.5 % Blood Gas Temperature 37 Oxygen Delivery Method (LAB) BIPAP15/7 FiO2 99 % Total Carbon Dioxide 26.4 mmol/L Current Medications Medications (Trade) Dose Ordered Sig/Davon Route PRN Reason Start Time Stop Time Status Last Admin Dose Admin Remdesivir 200 mg/ Sodium Chloride 140 ml @ 120.69 mls/ hr OT STAT IV 04/28/21 19:53 04/29/21 08:10 DC 04/28/21 19:53 Remdesivir 100 mg/ Sodium Chloride 120 ml @ 111.111 mls/hr Q24HRS IV 04/29/21 20:00 05/02/21 21:05 05/01/21 20:50 Famotidine (Pepcid) 20 mg BID PO 04/28/21 21:00 05/28/21 20:59 05/02/21 09:29 Sucralfate (Carafate) 1 gm ACHS PO 04/28/21 21:00 05/28/21 20:59 05/02/21 07:30 Enoxaparin Sodium (Lovenox) 40 mg Q24HRS SQ 04/28/21 20:00 05/28/21 19:59 05/01/21 20:50 Sucralfate (Carafate) 1 gm STK-MED ONCE PO 04/28/21 20:56 04/28/21 20:56 DC Lorazepam (Ativan) 1 mg Q4HR PRN IV ANXIETY 04/29/21 00:00 05/29/21 00:00 04/30/21 22:30 Lorazepam (Ativan) 0.5 mg Q4HR PRN IV ANXIETY 04/29/21 00:00 05/29/21 00:00 Fentanyl Citrate (Sublimaze) 50 mcg STK-MED ONCE .ROUTE 04/29/21 11:37 04/29/21 11:38 DC Fentanyl Citrate (Sublimaze) 12.5 mcg OT ONCE IV 04/29/21 15:00 04/29/21 15:06 DC 04/29/21 13:35 Acetaminophen (Tylenol) 650 mg Q6HR PRN PO PAIN 1 - 3 04/30/21 18:00 05/02/21 18:00 05/01/21 06:28 Dexmedetomidine HCl 200 mcg/ Sodium Chloride 50 ml @ 0 mls/hr IV 05/01/21 10:30 05/01/21 11:28 DC Sodium Chloride 250 ml @ ud STK-MED ONCE .ROUTE 05/01/21 20:40 05/01/21 20:40 DC Assessment/Plan Assessment/Plan Assessment/Plan Problems: (1) Acute and chronic respiratory failure with hypoxia ICD Code: J96.21 - Acute and chronic respiratory failure with hypoxia SNOMED: 65534083, [id number] (2) Pneumonia due to COVID-19 virus Status: Acute ICD Code: U07.1 - COVID-19; J12.82 - Pneumonia due to coronavirus disease 2019 SNOMED: [id number] Plan 35 yo Female with hypoxemic respiratory failure/ARDS - COVID-19 infection BIPAP/therapeutic protocol completed ultimately requiring intubation 05/06 no significant improvement noted chart review indicated patient considered for transfer to tertiary center/ECMO but no beds available in [facility] or multiple neighboring states ongoing assessment for bed availability PMHx includes but is not limited to: obesity (BMI 34) Chart and additional data reviewed: Assessment/Plan Continue full ventilator support, titrate FiO2 to keep saturation more than 92%. High rate, low tidal volume, permissive hypercapnia. Dexamethasone Nutrition support GI and DVT prophylaxis Appreciate telemetry ICU input and recommendations. Patient presenting with potentially life-threatening condition. Critical care time spent examining the patient, reviewing labs, images, discussing the case with HEAD CHARGER, respiratory therapist, documentation 55 minutes. ALANNA GARCIA MD May 21, 2021 09:23
[2021-05-21] MEDS ORDERED: NS 250ML 250 ML ONE ×2 (09:37→21:27)
[2021-05-21] MEDS ORDERED: LEVOPHED ONE (09:38)
[2021-05-21] MEDS: VANCOMYCIN HCL 1.5 GM in NS 250ML 300 ML IV SCH ×2 (10:27→21:22)
[2021-05-21] MEDS: INFUVITE ADULT IV SCH (10:27)
[2021-05-21] MEDS: CLINIMIX IV SCH (10:27)
--- NOTE | 2021-05-21 11:35 | TELE.CONS ---
Review of Systems Allergies: Coded Allergies: ibuprofen (Verified Allergy, Unknown, 04/29/21) naproxen (Verified Allergy, Unknown, 04/29/21) VITALS REVIEW VITALS Vital Sign - Last 24 Hours 05/17/21 05/17/21 05/17/21 05/17/21 07:00 07:15 07:30 07:30 Temp 99.9 99.9 99.7 Pulse 91 95 93 B/P (MAP) 121/54 (76) 109/51 (70) 103/48 (66) Pulse Ox 98 96 97 O2 Delivery Mechanical Ventilator 05/17/21 05/17/21 05/17/21 05/17/21 07:30 07:45 08:00 08:15 Temp 99.5 99.5 99.5 Pulse 84 73 69 B/P (MAP) 98/47 (64) 86/50 (62) 96/46 (63) 97/44 (61) Pulse Ox 97 97 98 FiO2 100 05/17/21 05/17/21 05/17/21 05/17/21 08:30 08:45 09:00 09:15 Temp 99.5 99.5 98.1 99.1 Pulse 66 68 81 69 Resp 35 B/P (MAP) 114/58 (76) 96/44 (61) 129/66 (87) 111/55 (73) Pulse Ox 98 99 100 100 05/17/21 05/17/21 05/17/21 05/17/21 09:20 09:30 09:45 10:00 Temp 99.5 99.7 99.7 Pulse 79 84 92 93 Resp 35 B/P (MAP) 112/56 (74) 116/57 (76) 121/66 (84) 130/61 (84) Pulse Ox 98 100 100 99 05/17/21 05/17/21 05/17/21 05/17/21 10:15 10:30 10:45 11:00 Temp 99.9 99.7 99.7 Pulse 85 89 84 70 Resp 35 35 B/P (MAP) 113/52 (72) 108/49 (68) 104/48 (66) Pulse Ox 99 100 99 98 FiO2 100 05/17/21 05/17/21 05/17/21 05/17/21 11:00 11:15 11:30 11:45 Temp 99.7 99.7 99.7 Pulse 79 70 73 B/P (MAP) 100/48 (65) 96/46 (63) 110/53 (72) Pulse Ox 98 98 98 O2 Delivery Mechanical Ventilator 05/17/21 05/17/21 05/17/21 05/17/21 11:45 11:46 12:00 12:01 Temp 99.5 99.5 99.5 Pulse 87 68 67 Resp 35 B/P (MAP) 113/65 (81) 99/58 (72) 100/53 (69) 101/54 (70) Pulse Ox 91 95 95 FiO2 90 05/17/21 05/17/21 05/17/21 05/17/21 12:10 12:16 12:31 12:46 Temp 99.5 99.5 99.5 Pulse 79 66 63 63 Resp 35 B/P (MAP) 95/52 (66) 101/56 (71) 108/58 (75) Pulse Ox 98 99 100 100 O2 Delivery Mechanical Ventilator 05/17/21 05/17/21 05/17/21 05/17/21 13:01 13:16 13:16 13:31 Temp 99.7 99.7 99.9 Pulse 63 62 79 64 Resp 35 B/P (MAP) 107/56 (73) 106/57 (73) 107/57 (74) Pulse Ox 100 100 98 100 FiO2 90 05/17/21 05/17/21 05/17/21 05/17/21 13:46 14:00 14:01 14:16 Temp 99.9 99.9 99.9 99.9 Pulse 64 66 66 65 Resp 35 B/P (MAP) 106/56 (73) 120/67 (84) 110/57 (74) 111/57 (75) 111/58 (75) Pulse Ox 100 100 100 100 05/17/21 05/17/21 05/17/21 05/17/21 14:31 14:46 15:01 15:16 Temp 100.0 100.2 100.2 100.2 Pulse 66 66 70 66 Resp 35 B/P (MAP) 109/54 (72) 113/58 (76) 116/58 (77) 121/61 (81) Pulse Ox 100 100 100 100 05/17/21 05/17/21 05/17/21 05/17/21 15:31 15:46 16:00 16:01 Temp 100.2 99.7 99.5 99.5 Pulse 102 78 88 86 B/P (MAP) 113/60 (77) 114/56 (75) 114/72 (86) 109/56 (73) 115/60 (78) Pulse Ox 99 98 96 97 05/17/21 05/17/21 05/17/21 05/17/21 16:03 16:16 16:21 16:31 Temp 99.3 99.3 Pulse 66 73 70 Resp 35 35 B/P (MAP) 102/54 (70) 100/51 (67) Pulse Ox 100 96 96 O2 Delivery Mechanical Ventilator FiO2 80 05/17/21 05/17/21 05/17/21 05/17/21 16:46 17:00 17:01 17:16 Temp 99.3 99.3 99.5 Pulse 70 67 65 B/P (MAP) 105/55 (72) 109/59 (76) 109/58 (75) Pulse Ox 96 97 98 FiO2 80 05/17/21 05/17/21 05/17/21 05/17/21 17:31 17:41 17:46 18:00 Temp 99.5 99.5 99.5 Pulse 64 70 63 72 Resp 35 B/P (MAP) 112/59 (76) 105/52 (69) 104/53 (70) 106/52 (70) Pulse Ox 99 98 94 94 FiO2 80 05/17/21 05/17/21 05/17/21 05/17/21 18:01 18:16 18:30 18:45 Temp 99.3 99.1 99.1 99.1 Pulse 72 71 78 78 B/P (MAP) 105/53 (70) 108/55 (72) 113/56 (75) 116/57 (76) Pulse Ox 94 98 98 98 05/17/21 05/17/21 05/17/21 05/17/21 18:57 19:00 19:15 19:30 Temp 99.0 99.1 99.1 Pulse 64 65 63 61 B/P (MAP) 109/55 (73) 111/57 (75) 115/58 (77) Pulse Ox 97 98 98 FiO2 80 05/17/21 05/17/21 05/17/21 05/17/21 19:45 20:00 20:02 20:03 Temp 99.1 99.1 99.1 Pulse 62 61 61 60 Resp 24 24 35 B/P (MAP) 102/57 (72) 117/58 (77) 115/57 (76) 114/58 (76) Pulse Ox 98 98 98 99 FiO2 80 05/17/21 05/17/21 05/17/21 05/17/21 20:15 20:18 20:30 20:36 Temp 99.3 99.3 99.3 Pulse 61 62 63 Resp 21 B/P (MAP) 135/70 (91) 129/73 (91) 123/62 (82) 134/69 (90) Pulse Ox 99 99 98 O2 Delivery Mechanical Ventilator 05/17/21 05/17/21 05/17/21 05/17/21 20:45 21:00 21:15 21:15 Temp 99.3 99.5 99.5 Pulse 62 63 62 62 Resp 24 B/P (MAP) 115/57 (76) 114/55 (74) 113/54 (73) Pulse Ox 98 97 98 99 O2 Delivery Mechanical Ventilator 05/17/21 05/17/21 05/17/21 05/17/21 21:30 21:45 22:00 22:10 Temp 99.5 99.5 99.7 Pulse 63 63 63 62 Resp 16 16 16 35 B/P (MAP) 123/86 (98) 107/52 (70) 104/59 (74) 109/54 (72) 111/55 (73) Pulse Ox 96 96 97 98 FiO2 80 05/17/21 05/17/21 05/17/21 05/17/21 22:15 22:30 22:45 23:00 Temp 99.7 99.7 99.9 99.9 Pulse 62 62 62 62 Resp 22 B/P (MAP) 109/55 (73) 110/55 (73) 110/56 (74) 109/55 (73) Pulse Ox 98 98 98 98 05/17/21 05/18/21 05/18/21 05/18/21 23:15 00:00 00:00 00:03 Temp 99.9 100.0 Pulse 63 63 63 Resp 35 B/P (MAP) 109/54 (72) 105/57 (73) 112/56 (74) Pulse Ox 98 98 98 O2 Delivery Mechanical Ventilator FiO2 80 05/18/21 05/18/21 05/18/21 05/18/21 00:15 00:30 00:45 01:00 Temp 100.2 100.2 100.2 100.2 Pulse 63 63 63 63 B/P (MAP) 110/55 (73) 111/56 (74) 109/54 (72) 109/54 (72) Pulse Ox 97 97 97 98 05/18/21 05/18/21 05/18/21 05/18/21 01:15 01:30 01:45 02:00 Temp 100.2 100.2 100.2 Pulse 63 61 63 B/P (MAP) 111/55 (73) 102/51 (68) 109/52 (71) 114/61 (78) Pulse Ox 98 98 98 95 05/18/21 05/18/21 05/18/21 05/18/21 02:01 02:02 02:15 02:23 Temp 99.1 Pulse 96 65 66 Resp 35 B/P (MAP) 91/45 (60) 103/54 (70) 106/53 (70) 97/52 (67) Pulse Ox 94 94 94 FiO2 80 05/18/21 05/18/21 05/18/21 05/18/21 02:30 02:41 02:45 03:00 Temp 99.0 99.0 98.8 Pulse 62 60 58 B/P (MAP) 103/53 (70) 105/55 (72) 105/54 (71) Pulse Ox 93 95 96 FiO2 80 05/18/21 05/18/21 05/18/21 05/18/21 03:15 03:26 03:30 03:45 Temp 98.8 98.6 98.6 98.4 Pulse 58 58 58 58 B/P (MAP) 98/50 (66) 105/59 (74) 106/55 (72) 107/55 (72) 104/54 (71) Pulse Ox 96 97 97 97 05/18/21 05/18/21 05/18/21 05/18/21 04:00 04:15 04:20 04:30 Temp 98.4 98.4 98.4 Pulse 57 58 57 58 Resp 36 B/P (MAP) 103/56 (72) 108/55 (72) 107/55 (72) 108/55 (72) Pulse Ox 97 97 97 97 FiO2 80 05/18/21 05/18/21 05/18/21 05/18/21 04:41 04:45 05:00 05:03 Temp 98.4 98.4 98.4 Pulse 58 59 66 B/P (MAP) 107/54 (71) 108/54 (72) 109/60 (76) 118/60 (79) Pulse Ox 98 97 94 FiO2 80 05/18/21 05/18/21 05/18/21 05/18/21 05:15 05:30 05:45 06:00 Temp 98.4 98.4 98.2 98.1 Pulse 72 81 88 100 B/P (MAP) 114/56 (75) 118/58 (78) 117/59 (78) 134/60 (84) 118/60 (79) Pulse Ox 96 95 95 91 05/18/21 05/18/21 05/18/21 05/18/21 06:05 06:11 06:14 06:30 Temp 97.7 Pulse 93 99 Resp 38 B/P (MAP) 124/64 (84) Pulse Ox 90 87 O2 Delivery Mechanical Ventilator FiO2 80 80 05/18/21 05/18/21 05/18/21 05/18/21 06:45 07:00 07:15 07:30 Temp 97.9 97.9 98.1 Pulse 88 83 76 Resp 37 B/P (MAP) 116/57 (76) 123/59 (80) 110/56 (74) Pulse Ox 86 90 94 O2 Delivery Mechanical Ventilator 05/18/21 05/18/21 05/18/21 05/18/21 07:30 07:30 07:45 08:00 Temp 98.2 98.2 98.4 Pulse 87 88 105 B/P (MAP) 126/62 (83) 136/63 (87) 147/75 (99) 151/70 (97) Pulse Ox 96 97 93 FiO2 80 05/18/21 05/18/21 05/18/21 05/18/21 08:15 08:30 08:45 08:49 Temp 98.4 98.6 98.6 Pulse 108 100 94 93 Resp 35 B/P (MAP) 143/67 (92) 134/61 (85) 119/56 (77) Pulse Ox 93 92 94 94 FiO2 70 05/18/21 05/18/21 05/18/21 05/18/21 09:00 09:00 09:15 09:30 Temp 98.8 99.0 99.0 Pulse 91 93 98 105 Resp 35 B/P (MAP) 109/53 (71) 116/57 (76) 123/61 (81) Pulse Ox 95 94 92 92 O2 Delivery Mechanical Ventilator 05/18/21 05/18/21 05/18/21 05/18/21 09:45 10:00 10:15 10:30 Temp 99.1 99.3 99.3 99.5 Pulse 99 102 96 99 B/P (MAP) 120/60 (80) 128/64 (85) 111/58 (75) 120/61 (80) 123/63 (83) Pulse Ox 92 92 94 93 05/18/21 05/18/21 05/18/21 05/18/21 10:45 10:54 11:00 11:15 Temp 99.5 99.7 99.9 Pulse 95 93 97 84 Resp 35 35 B/P (MAP) 111/58 (75) 118/64 (82) 103/56 (72) Pulse Ox 96 94 95 95 FiO2 70 05/18/21 05/18/21 05/18/21 05/18/21 11:30 11:45 12:00 12:15 Temp 100.2 100.2 100.4 100.6 Pulse 99 97 105 94 Resp 35 B/P (MAP) 130/68 (88) 125/66 (85) 141/77 (98) 120/64 (82) 135/71 (92) Pulse Ox 91 90 91 91 05/18/21 05/18/21 05/18/21 05/18/21 12:15 12:15 12:30 12:45 Temp 100.6 100.8 Pulse 96 108 B/P (MAP) 124/67 (86) 129/69 (89) Pulse Ox 91 90 O2 Delivery Mechanical Ventilator FiO2 70 05/18/21 05/18/21 05/18/21 05/18/21 13:00 13:15 13:29 13:30 Temp 100.9 100.9 100.9 Pulse 122 128 93 110 Resp 35 35 B/P (MAP) 165/83 (110) 152/76 (101) 112/59 (76) Pulse Ox 90 93 94 92 FiO2 70 05/18/21 05/18/21 05/18/21 05/18/21 13:45 14:00 14:15 14:30 Temp 100.6 100.4 100.2 99.9 Pulse 109 100 93 94 Resp 35 B/P (MAP) 107/58 (74) 111/63 (79) 101/56 (71) 98/56 (70) 103/57 (72) Pulse Ox 94 95 96 95 05/18/21 05/18/21 05/18/21 05/18/21 14:45 15:00 15:15 15:30 Temp 99.9 99.7 99.5 99.3 Pulse 88 87 86 83 Resp 35 B/P (MAP) 93/54 (67) 98/56 (70) 98/56 (70) 95/55 (68) Pulse Ox 93 94 94 95 05/18/21 05/18/21 05/18/21 05/18/21 15:45 16:00 16:15 16:30 Temp 99.1 99.1 99.1 99.0 Pulse 80 78 76 76 Resp 35 B/P (MAP) 95/54 (68) 101/54 (70) 91/52 (65) 89/53 (65) 94/54 (67) Pulse Ox 93 94 94 95 05/18/21 05/18/21 05/18/21 05/18/21 16:30 16:35 16:35 16:45 Temp 99.0 Pulse 93 74 Resp 35 35 B/P (MAP) 92/53 (66) Pulse Ox 94 96 O2 Delivery Mechanical Ventilator FiO2 70 70 05/18/21 05/18/21 05/18/21 05/18/21 17:00 17:15 17:30 17:45 Temp 99.0 99.0 98.8 98.8 Pulse 73 72 71 73 Resp 35 B/P (MAP) 92/53 (66) 91/51 (64) 91/50 (64) 96/52 (67) Pulse Ox 98 94 93 92 05/18/21 05/18/21 05/18/21 05/18/21 18:00 18:01 18:03 18:15 Temp 98.6 98.6 98.6 Pulse 78 93 76 81 Resp 35 B/P (MAP) 84/36 (52) 93/52 (66) 110/59 (76) 102/53 (69) 101/53 (69) Pulse Ox 91 94 91 91 FiO2 70 05/18/21 05/18/21 05/18/21 05/18/21 19:00 19:15 19:30 19:45 Temp 98.4 98.2 98.2 98.2 Pulse 70 71 72 71 B/P (MAP) 104/56 (72) 106/57 (73) 107/58 (74) 108/57 (74) Pulse Ox 87 87 87 88 05/18/21 05/18/21 05/18/21 05/18/21 19:58 20:00 20:00 20:00 Temp 98.2 Pulse 70 B/P (MAP) 100/52 (68) 109/58 (75) Pulse Ox 88 O2 Delivery Mechanical Ventilator Mechanical Ventilator FiO2 70 05/18/21 05/18/21 05/18/21 05/18/21 20:15 20:25 20:30 20:44 Temp 98.2 98.2 Pulse 70 69 69 69 Resp 35 35 B/P (MAP) 108/58 (75) 107/57 (74) Pulse Ox 89 89 88 89 O2 Delivery Mechanical Ventilator FiO2 70 05/18/21 05/18/21 05/18/21 05/18/21 20:45 21:00 21:15 21:30 Temp 98.2 98.2 98.1 98.1 Pulse 70 66 65 64 B/P (MAP) 105/56 (72) 105/56 (72) 103/56 (72) 100/54 (69) Pulse Ox 87 89 89 88 05/18/21 05/18/21 05/18/21 05/18/21 21:45 22:00 22:15 22:30 Temp 98.1 97.7 97.3 97.3 Pulse 63 85 71 64 B/P (MAP) 99/54 (69) 103/52 (69) 105/58 (74) 103/57 (72) 122/71 (88) Pulse Ox 89 84 89 88 05/18/21 05/18/21 05/18/21 05/18/21 22:33 22:45 23:00 23:02 Temp 97.3 97.3 Pulse 64 63 63 Resp 36 B/P (MAP) 99/56 (70) 100/56 (71) Pulse Ox 88 88 87 O2 Delivery Mechanical Ventilator FiO2 70 05/18/21 05/18/21 05/18/21 05/19/21 23:15 23:30 23:45 00:00 Temp 97.3 97.3 97.3 Pulse 64 63 63 B/P (MAP) 103/57 (72) 103/57 (72) 103/56 (72) Pulse Ox 87 87 87 O2 Delivery Mechanical Ventilator 05/19/21 05/19/21 05/19/21 05/19/21 00:00 00:00 00:15 00:30 Temp 97.5 97.5 97.5 Pulse 64 64 64 B/P (MAP) 98/56 (70) 103/56 (72) 103/56 (72) 105/57 (73) Pulse Ox 87 87 86 FiO2 70 05/19/21 05/19/21 05/19/21 05/19/21 00:45 01:00 01:15 01:30 Temp 97.5 97.5 97.5 97.5 Pulse 64 64 64 63 B/P (MAP) 103/56 (72) 102/55 (71) 102/55 (71) 103/56 (72) Pulse Ox 88 87 88 88 05/19/21 05/19/21 05/19/21 05/19/21 01:45 01:58 02:00 02:15 Temp 97.5 97.7 97.7 Pulse 63 64 64 64 Resp 39 B/P (MAP) 99/54 (69) 90/46 (61) 102/55 (71) 101/54 (70) Pulse Ox 87 90 86 86 FiO2 70 05/19/21 05/19/21 05/19/21 05/19/21 02:30 02:45 03:00 03:15 Temp 97.7 97.5 97.7 97.5 Pulse 63 63 63 65 B/P (MAP) 103/56 (72) 102/55 (71) 101/54 (70) 108/58 (75) Pulse Ox 87 86 85 87 05/19/21 05/19/21 05/19/21 05/19/21 03:30 03:45 03:46 04:00 Temp 97.5 97.5 97.5 97.5 Pulse 63 62 62 70 B/P (MAP) 101/53 (69) 104/55 (71) 95/44 (61) 101/50 (67) 102/54 (70) 108/55 (72) Pulse Ox 87 88 86 88 05/19/21 05/19/21 05/19/21 05/19/21 04:00 04:09 04:15 04:30 Temp 97.3 97.3 Pulse 75 73 77 Resp 36 B/P (MAP) 111/54 (73) 113/55 (74) Pulse Ox 88 86 86 O2 Delivery Mechanical Ventilator FiO2 70 05/19/21 05/19/21 05/19/21 05/19/21 04:45 04:47 04:55 05:00 Temp 97.3 97.3 97.3 Pulse 79 84 65 B/P (MAP) 118/60 (79) 124/55 (78) 104/54 (71) 121/62 (81) Pulse Ox 85 91 89 FiO2 85 05/19/21 05/19/21 05/19/21 05/19/21 05:15 05:30 05:45 05:52 Temp 97.5 97.5 97.5 97.5 Pulse 62 62 60 60 B/P (MAP) 100/52 (68) 96/50 (65) 98/51 (67) 90/45 (60) 96/50 (65) Pulse Ox 89 88 93 94 05/19/21 05/19/21 05/19/21 05/19/21 06:00 06:02 06:15 06:30 Temp 97.7 97.7 97.7 Pulse 60 60 61 61 Resp 37 B/P (MAP) 95/46 (62) 101/51 (68) 100/51 (67) 97/50 (66) Pulse Ox 93 93 94 94 FiO2 100 05/19/21 05/19/21 05/19/21 05/19/21 06:45 07:00 07:04 07:15 Temp 97.9 97.9 97.9 Pulse 61 62 64 B/P (MAP) 103/52 (69) 102/52 (69) 103/52 (69) Pulse Ox 95 95 95 FiO2 100 05/19/21 05/19/21 05/19/21 05/19/21 07:30 07:45 08:00 08:00 Temp 98.1 98.1 98.1 Pulse 66 64 75 B/P (MAP) 109/55 (73) 105/53 (70) 110/58 (75) 120/60 (80) Pulse Ox 95 95 96 O2 Delivery Mechanical Ventilator 05/19/21 05/19/21 05/19/21 05/19/21 08:15 08:30 08:45 09:00 Temp 98.1 98.1 97.9 97.9 Pulse 76 84 83 80 B/P (MAP) 119/57 (77) 126/60 (82) 125/59 (81) 123/58 (79) Pulse Ox 96 96 94 94 05/19/21 05/19/21 05/19/21 05/19/21 09:15 09:30 09:45 09:57 Temp 97.9 97.9 97.9 Pulse 81 80 76 77 Resp 26 B/P (MAP) 122/58 (79) 129/62 (84) 127/62 (83) Pulse Ox 93 92 91 91 O2 Delivery Mechanical Ventilator FiO2 100 05/19/21 05/19/21 05/19/21 05/19/21 09:58 10:00 10:15 10:30 Temp 97.9 98.1 98.1 Pulse 77 76 85 90 Resp 37 B/P (MAP) 124/62 (82) 133/64 (87) 133/63 (86) 126/62 (83) Pulse Ox 91 90 92 91 FiO2 100 05/19/21 05/19/21 05/19/21 05/19/21 10:45 11:00 11:15 11:30 Temp 98.2 98.4 98.6 98.6 Pulse 81 81 82 82 B/P (MAP) 125/60 (81) 127/60 (82) 126/61 (82) 124/60 (81) Pulse Ox 90 90 90 89 05/19/21 05/19/21 05/19/21 05/19/21 11:45 12:00 12:00 12:15 Temp 98.8 99.0 99.1 Pulse 75 72 70 B/P (MAP) 114/55 (74) 111/48 (69) 102/50 (67) 107/52 (70) Pulse Ox 91 91 92 O2 Delivery Mechanical Ventilator 05/19/21 05/19/21 05/19/21 05/19/21 12:24 12:30 12:45 13:00 Temp 99.1 99.3 99.3 Pulse 82 68 68 66 Resp 37 B/P (MAP) 101/51 (68) 102/51 (68) 99/50 (66) Pulse Ox 89 93 94 95 FiO2 100 05/19/21 05/19/21 05/19/21 05/19/21 13:15 13:30 13:45 14:00 Temp 99.3 99.5 99.5 99.5 Pulse 66 64 65 64 B/P (MAP) 101/51 (68) 100/50 (67) 100/51 (67) 97/46 (63) 102/51 (68) Pulse Ox 96 97 97 97 05/19/21 05/19/21 05/19/21 05/19/21 14:15 14:30 14:45 15:00 Temp 99.5 99.5 99.5 99.5 Pulse 65 65 65 66 B/P (MAP) 100/52 (68) 100/51 (67) 101/52 (68) 101/52 (68) Pulse Ox 97 96 96 96 05/19/21 05/19/21 05/19/21 05/19/21 15:15 15:20 15:30 15:45 Temp 99.5 99.5 99.5 Pulse 64 66 83 82 Resp 37 B/P (MAP) 102/52 (69) 127/65 (85) 121/61 (81) Pulse Ox 97 96 99 98 FiO2 100 05/19/21 05/19/21 05/19/21 05/19/21 16:00 16:00 16:15 16:30 Temp 99.5 99.3 99.1 Pulse 86 93 90 B/P (MAP) 106/64 (78) 130/63 (85) 133/64 (87) 126/63 (84) Pulse Ox 97 96 94 O2 Delivery Mechanical Ventilator 05/19/21 05/19/21 05/19/21 05/19/21 16:45 16:50 17:00 17:15 Temp 99.1 99.0 99.0 Pulse 97 97 91 96 Resp 35 B/P (MAP) 131/64 (86) 125/60 (81) 130/64 (86) Pulse Ox 96 95 93 93 FiO2 100 05/19/21 05/19/21 05/19/21 05/19/21 17:17 17:30 17:45 18:00 Temp 99.0 99.0 99.0 Pulse 90 91 89 Resp 44 B/P (MAP) 125/62 (83) 132/67 (88) 107/60 (76) 127/63 (84) Pulse Ox 92 93 92 93 05/19/21 05/19/21 05/19/21 05/19/21 18:07 18:15 18:30 18:45 Temp 99.0 99.0 99.1 Pulse 98 78 72 69 Resp 36 B/P (MAP) 111/56 (74) 107/55 (72) 103/54 (70) Pulse Ox 9 94 93 94 FiO2 100 05/19/21 05/19/21 05/19/21 05/19/21 20:00 20:00 20:13 20:15 Temp 99.1 Pulse 62 62 Resp 37 B/P (MAP) 95/50 (65) 99/53 (68) Pulse Ox 98 98 O2 Delivery Mechanical Ventilator FiO2 100 100 05/19/21 05/19/21 05/19/21 05/19/21 20:15 20:30 20:45 21:00 Temp 99.3 99.3 99.3 99.3 Pulse 62 62 62 61 B/P (MAP) 99/52 (68) 99/52 (68) 100/53 (69) 99/52 (68) Pulse Ox 99 98 99 99 05/19/21 05/19/21 05/19/21 05/19/21 21:15 21:30 21:45 22:00 Temp 99.3 99.3 99.3 99.3 Pulse 60 61 61 61 B/P (MAP) 98/52 (67) 97/51 (66) 97/51 (66) 91/51 (64) 97/51 (66) Pulse Ox 99 99 99 99 05/19/21 05/19/21 05/19/21 05/19/21 22:04 22:05 22:15 22:30 Temp 99.3 99.3 Pulse 62 61 60 61 Resp 37 36 B/P (MAP) 95/51 (66) 94/50 (65) Pulse Ox 98 99 98 99 O2 Delivery Mechanical Ventilator FiO2 100 100 05/19/21 05/19/21 05/19/21 05/19/21 22:45 23:00 23:13 23:15 Temp 99.3 99.3 99.3 Pulse 61 61 61 B/P (MAP) 93/50 (64) 93/50 (64) 92/50 (64) Pulse Ox 99 99 100 O2 Delivery Mechanical Ventilator 05/19/21 05/19/21 05/19/21 05/20/21 23:15 23:30 23:45 00:00 Temp 99.3 99.3 99.3 Pulse 60 61 60 60 Resp 35 B/P (MAP) 93/50 (64) 91/49 (63) 88/46 (60) 91/50 (64) Pulse Ox 100 100 100 100 FiO2 100 05/20/21 05/20/21 05/20/21 05/20/21 00:01 00:15 00:30 00:45 Temp 99.3 99.5 99.5 Pulse 60 60 60 61 Resp 35 B/P (MAP) 89/49 (62) 90/49 (63) 89/49 (62) Pulse Ox 100 100 100 100 FiO2 100 05/20/21 05/20/21 05/20/21 05/20/21 01:00 01:15 01:30 01:45 Temp 99.5 99.5 99.5 99.3 Pulse 62 67 70 71 B/P (MAP) 87/48 (61) 95/51 (66) 98/52 (67) 100/52 (68) Pulse Ox 99 99 98 98 05/20/21 05/20/21 05/20/21 05/20/21 02:00 02:15 02:30 02:45 Temp 99.1 99.1 99.0 99.0 Pulse 70 67 65 65 B/P (MAP) 109/57 (74) 96/51 (66) 94/49 (64) 96/51 (66) 100/53 (69) Pulse Ox 97 97 96 95 05/20/21 05/20/21 05/20/21 05/20/21 03:00 03:15 03:30 03:45 Temp 98.8 98.6 98.6 98.4 Pulse 65 64 65 64 B/P (MAP) 96/52 (67) 95/52 (66) 93/50 (64) 96/53 (67) Pulse Ox 95 96 95 97 05/20/21 05/20/21 05/20/21 05/20/21 04:00 04:00 04:15 04:30 Temp 98.2 98.2 98.4 Pulse 64 64 64 64 Resp 36 B/P (MAP) 109/55 (73) 94/51 (65) 94/51 (65) 94/51 (65) Pulse Ox 95 97 97 97 FiO2 100 05/20/21 05/20/21 05/20/21 05/20/21 04:45 05:00 05:00 05:00 Temp 98.4 98.4 Pulse 64 82 65 Resp 35 B/P (MAP) 94/51 (65) 155/60 (91) Pulse Ox 96 98 92 O2 Delivery Mechanical Ventilator FiO2 100 05/20/21 05/20/21 05/20/21 05/20/21 05:15 05:30 05:43 05:45 Temp 98.2 98.2 98.2 Pulse 77 78 75 79 Resp 35 B/P (MAP) 110/57 (74) 111/58 (75) 112/57 (75) Pulse Ox 97 96 96 95 FiO2 100 05/20/21 05/20/21 05/20/21 05/20/21 06:00 06:15 06:30 06:45 Temp 98.2 98.2 98.2 98.2 Pulse 77 78 81 71 B/P (MAP) 117/66 (83) 112/56 (74) 114/58 (76) 109/54 (72) 111/57 (75) Pulse Ox 94 93 92 91 05/20/21 05/20/21 05/20/21 05/20/21 07:00 07:15 07:30 07:45 Temp 98.2 98.2 98.4 98.4 Pulse 74 73 81 80 B/P (MAP) 110/55 (73) 105/54 (71) 119/61 (80) 117/58 (77) Pulse Ox 92 90 97 97 05/20/21 05/20/21 05/20/21 05/20/21 08:00 08:00 08:15 08:30 Temp 98.4 98.4 98.6 Pulse 82 79 70 B/P (MAP) 121/67 (85) 113/57 (75) 104/52 (69) 120/59 (79) Pulse Ox 97 97 97 O2 Delivery Mechanical Ventilator 05/20/21 05/20/21 05/20/21 05/20/21 08:31 08:32 08:32 08:45 Temp 98.6 Pulse 74 74 87 Resp 35 35 B/P (MAP) 124/60 (81) Pulse Ox 97 97 90 O2 Delivery Mechanical Ventilator FiO2 100 90 100 05/20/21 05/20/21 05/20/21 05/20/21 09:00 09:15 09:30 09:45 Temp 98.6 98.6 98.6 98.8 Pulse 78 73 70 76 B/P (MAP) 120/63 (82) 112/61 (78) 110/61 (77) 117/63 (81) Pulse Ox 95 92 93 92 05/20/21 05/20/21 05/20/21 05/20/21 10:00 10:02 10:15 10:30 Temp 99.0 99.0 99.0 99.0 Pulse 80 81 90 80 B/P (MAP) 119/64 (82) 121/65 (83) 131/69 (89) 119/64 (82) Pulse Ox 91 90 91 90 05/20/21 05/20/21 05/20/21 05/20/21 10:45 11:00 11:15 11:30 Temp 99.0 99.0 99.0 99.0 Pulse 98 103 101 97 B/P (MAP) 138/71 (93) 139/70 (93) 139/70 (93) 132/68 (89) Pulse Ox 90 90 91 90 05/20/21 05/20/21 05/20/21 05/20/21 11:33 11:41 11:45 12:00 Temp 99.1 Pulse 98 94 Resp 38 B/P (MAP) 122/64 (83) Pulse Ox 91 87 O2 Delivery Mechanical Ventilator FiO2 90 80 05/20/21 05/20/21 05/20/21 05/20/21 12:00 12:02 12:15 12:30 Temp 99.1 99.1 99.1 99.3 Pulse 90 91 87 81 B/P (MAP) 120/62 (81) 119/62 (81) 114/59 (77) 110/58 (75) Pulse Ox 89 87 86 87 05/20/21 05/20/21 05/20/21 05/20/21 12:45 12:45 13:00 13:15 Temp 99.3 99.5 99.5 Pulse 76 73 70 B/P (MAP) 104/57 (73) 95/53 (67) 93/54 (67) Pulse Ox 88 89 91 FiO2 90 05/20/21 05/20/21 05/20/21 05/20/21 13:30 13:45 14:00 14:02 Temp 99.7 99.7 99.7 99.7 Pulse 69 69 68 69 B/P (MAP) 93/53 (66) 93/53 (66) 94/53 (67) 95/54 (68) Pulse Ox 93 95 95 96 05/20/21 05/20/21 05/20/21 05/20/21 14:10 14:15 14:30 14:45 Temp 99.9 99.7 99.5 Pulse 68 90 69 71 Resp 38 B/P (MAP) 117/69 (85) 105/58 (74) 110/60 (77) Pulse Ox 95 95 97 97 FiO2 90 05/20/21 05/20/21 05/20/21 05/20/21 15:00 15:15 15:30 15:45 Temp 99.5 99.5 99.5 99.5 Pulse 68 74 70 67 B/P (MAP) 107/59 (75) 115/63 (80) 106/57 (73) 106/58 (74) Pulse Ox 97 96 94 94 05/20/21 05/20/21 05/20/21 05/20/21 16:00 16:02 16:07 16:15 Temp 99.3 99.3 99.3 Pulse 65 66 65 B/P (MAP) 102/56 (71) 102/56 (71) 103/57 (72) Pulse Ox 93 93 93 O2 Delivery Mechanical Ventilator 05/20/21 05/20/21 05/20/21 05/20/21 16:30 16:45 17:00 17:00 Temp 99.3 99.1 99.1 Pulse 64 64 64 65 Resp 38 B/P (MAP) 105/58 (74) 104/58 (73) 105/59 (74) Pulse Ox 93 94 95 95 FiO2 90 05/20/21 05/20/21 05/20/21 05/20/21 17:15 17:30 17:45 18:00 Temp 99.1 99.1 99.1 99.0 Pulse 63 64 63 64 B/P (MAP) 106/59 (75) 103/58 (73) 108/60 (76) 107/59 (75) Pulse Ox 96 96 96 96 05/20/21 05/20/21 05/20/21 05/20/21 18:02 18:15 18:30 19:00 Temp 99.0 99.0 99.0 98.8 Pulse 60 63 61 63 Resp 26 B/P (MAP) 108/59 (75) 108/60 (76) 109/59 (76) 110/60 (77) Pulse Ox 96 96 96 95 05/20/21 05/20/21 05/20/21 05/20/21 19:15 19:30 19:34 19:45 Temp 98.8 98.8 98.6 Pulse 64 67 63 64 Resp 36 26 B/P (MAP) 111/60 (77) 119/64 (82) 113/61 (78) Pulse Ox 94 97 97 95 FiO2 90 05/20/21 05/20/21 05/20/21 05/20/21 19:50 19:50 20:00 20:02 Temp 98.6 98.6 Pulse 56 64 64 Resp 26 B/P (MAP) 114/61 (78) 114/61 (78) Pulse Ox 97 94 94 O2 Delivery Mechanical Ventilator FiO2 100 05/20/21 05/20/21 05/20/21 05/20/21 20:15 20:30 20:45 21:00 Temp 98.6 98.6 98.4 Pulse 64 62 64 61 Resp 26 37 B/P (MAP) 110/60 (77) 111/60 (77) 114/61 (78) Pulse Ox 93 93 92 96 O2 Delivery Mechanical Ventilator FiO2 90 05/20/21 05/20/21 05/20/21 05/20/21 21:00 21:15 21:30 21:45 Temp 98.4 98.4 98.4 Pulse 65 62 63 63 Resp 26 B/P (MAP) 112/61 (78) 112/60 (77) 113/60 (77) 112/61 (78) Pulse Ox 91 93 94 94 05/20/21 05/20/21 05/20/21 05/21/21 22:00 22:02 22:12 00:12 Temp 98.4 98.4 Pulse 62 62 61 Resp 37 B/P (MAP) 111/61 (78) 110/60 (77) Pulse Ox 94 95 95 O2 Delivery Mechanical Ventilator FiO2 90 05/21/21 05/21/21 05/21/21 05/21/21 00:12 01:30 03:36 03:56 Pulse 58 67 55 Resp 26 37 38 Pulse Ox 98 95 97 O2 Delivery Mechanical Ventilator FiO2 100 90 90 05/21/21 05/21/21 05/21/21 05/21/21 03:56 05:34 07:54 07:54 Pulse 55 100 70 70 Resp 35 37 38 38 Pulse Ox 97 94 91 91 O2 Delivery Mechanical Ventilator FiO2 100 90 90 90 Intake and Output 05/21/21 05:59 Intake Total 5554 ml Output Total 5400 ml Balance 154 ml VTE VTE Risk Total Score: 5 VTE Risk Score VTE Risk: Score 0-1 = Low Risk (Aggressive mobilization; early ambulation; no VTE prophylaxis required) Score 2: Moderate Risk (Intermittent/Pneumatic Compression Device OR Lovenox/Heparin/Coumadin) Score 3-4: High Risk (Intermittent/Pneumatic Compression Device AND Lovenox/Heparin/Coumadin) Score > or =5: Highest Risk (Intermittent/Pneumatic Compression Device AND Lovenox/Heparin/Coumadin) Antico:Hep/LMWH/Coum/Xarelto: Yes Mechanical device ordered: Yes VTE VTE Present on Admission: No Currently receiving anticoagul: Yes VTE Risk Total Score: 5 Antico:Hep/LMWH/Coum/Xarelto: Yes Mechanical device ordered: Yes Assessment/Plan Assessment/Plan Assessment/Plan 35 yo Female with hypoxemic respiratory failure/ARDS - COVID-19 infection BIPAP/therapeutic protocol completed ultimately requiring intubation 05/06 no significant improvement noted chart review indicated patient considered for transfer to tertiary center/ECMO but no beds available in state or multiple neighboring states ongoing assessment for bed availability PMHx includes but is not limited to: obesity (BMI 34) Chart and additional data reviewed: Assessment/Plan Continue full ventilator support, titrate FiO2 to keep saturation more than 92%. High rate, low tidal volume, permissive hypercapnia. Dexamethasone Nutrition support GI and DVT prophylaxis Appreciate telemetry ICU input and recommendations. Patient presenting with potentially life-threatening condition. Critical care time spent examining the patient, reviewing labs, images, discussing the case with [employer], respiratory therapist, documentation 55 minutes. Plan 35 yo Female with hypoxemic respiratory failure/ARDS - COVID-19 infection BIPAP/therapeutic protocol completed ultimately requiring intubation 05/06 no significant improvement noted chart review indicated patient considered for transfer to tertiary center/ECMO but no beds available in [facility] or multiple neighboring states ongoing assessment for bed availability transient episode of hypotension reported requiring dec sedation and levophed restarted per staff was sync with the vent at the time remains on FI02 90% PMHx includes but is not limited to: obesity (BMI 34) Qtts: fentanyl 250 Precedex 1.1 Versed 6 levophed Chart and additional data reviewed: 7.255///88 on 90% PEEP 16 CXR 05/21 unchanged Assessment/Plan Severe hypoxemia/ARDS from COVID-19 infection some small measure of improvement noted in oxygenation today and not proned for >48hours per staff but no significant improvement in oxygen requirements most recent ABG demonstrating adequate oxygenation but suboptimal ventilation when attempted to adjust FI02 down to 90 then 80% 05/20 - improved ventilation but suboptimal oxygenation when down to 80 inc back to 90 on 05/20 on AC 35/350/90/16 at this time ABG this am: 7.255/72/61/88 on AC 35/320/90/16 would continue to have a low threshold to use paralytic remains on TPN - bowel sounds remain hypoactive and no BM reported since 05/11 NGT remains on ILWS with little output calls to tertiary centers made daily by report no bed available DVT and GI prophylaxis Bedside rounds completed with nurse and bedside RT - All issues addressed at this time Patient seen through remote audiovisual assessment through HIPPA compliant technology Cumulative non-procedural critical care time spent in directed patient care 60 minutes ODILIA SMITH DO May 21, 2021 11:35
[2021-05-21] MEDS: SUBLIMAZE IV SCH (13:26)
[2021-05-21] MEDS: NS IV SCH ×2 (13:26)
[2021-05-21] MEDS: VERSED IV SCH (13:26)
[2021-05-21] MEDS: OFIRMEV IV PRN (21:15)
[2021-05-21] MEDS ORDERED: VANCOMYCIN HCL 1 GM ONE (21:27)
--- NOTE | 2021-05-21 23:00 | NUR ---
Dressing change to ART line to left wrist completed at this time. Site cleaned d/t dry blood being on skin. STAT lock placed under ART line near insertion site. Secured with tegaderm.
[2021-05-22] VITALS (107 sets, daily range): BP systolic 85–148; BP diastolic 41–97
[2021-05-22] MEDS: NORCURON IV PRN ×3 (00:42→09:00)
[2021-05-22] MEDS: PRECEDEX 400 MCG/100 ML INJECT 100 ML IV SCH ×6 (00:48→21:51)
[2021-05-22 05:01] LABS: BASOPHIL % 0.1 % (0.0-0.2); EOSINOPHIL # 0.4 10^3/uL (0.0-0.2); EOSINOPHIL % 2.5 % (0.0-5.0); LYMPHOCYTES # 1.52 10^3/uL1 (1.0-4.8); LYMPHOCYTES % 10.8 % (24.0-44.0); MEAN CORP HGB 29.7 pg (26-34); MONOCYTES # 0.4 10^3/uL (0.3-0.8); MONOCYTES % 2.8 % (5.0-12.0); NEUTROPHIL # 11.8 10^3/uL (1.8-7.7); NEUTROPHILS % 83.8 % (41.0-85.0); PLATELET COUNT 280 10^3/uL (150-400); RED CELL DISTRIBUTION WIDTH 15.5 % (11.5-14.5)
[2021-05-22 05:16] LABS: CALCIUM 8.4 mg/dL (8.4-10.5); CARBON DIOXIDE 31.1 mmol/L (20.0-32)
[2021-05-22] MEDS: SUBLIMAZE IV SCH (05:39)
[2021-05-22] MEDS: NS IV SCH ×2 (05:39→17:00)
[2021-05-22 05:51] LABS: ABG PCO2 72.3 mmHg (35.0-45.0); ABG PH 7.256 (7.350-7.450); BE(B) 3.2 mmol/L (-2.0-2.0); HCO3act 31.4 mmol/L (22.0-26.0)
--- NOTE | 2021-05-22 06:56 | NUR ---
Report given, Care relinquished.
--- NOTE | 2021-05-22 08:05 | DIREP ---
PROCEDURE:CHEST 1 VIEW COMPARISON:[facility], CR, XRAY CHEST SINGLE VW, 05/21/2021, 07:19 AM. [facility], CR, XRAY CHEST SINGLE VW, 05/20/2021, 07:04 AM. INDICATIONS:COVID FINDINGS: LUNGS/PLEURA:Significant multi lobar diffuse infiltrates without significant interval change. VASCULATURE:Normal. Unremarkable pulmonary vasculature. CARDIAC:Normal. No cardiac silhouette abnormality or cardiomegaly. MEDIASTINUM:Normal. No visible mass or adenopathy. BONES:Normal. No fracture or visible bony lesion. OTHER:Stable left central venous catheter, enteric tube, and endotracheal tube. CONCLUSION:Extensive bilateral airspace disease without significant interval change Dictated by: Ky Cloud DO on 05/22/2021 at 08:01 AM
[2021-05-22] MEDS: LASIX IV SCH (08:23)
[2021-05-22] MEDS: MAXIPIME 2 GM in NS 100ML 100 ML IV SCH ×2 (08:23→20:07)
[2021-05-22] MEDS: LOVENOX SQ SCH ×2 (08:23→20:12)
[2021-05-22] MEDS: PEPCID IV SCH ×2 (08:26→20:38)
[2021-05-22] MEDS: VANCOMYCIN HCL 1.5 GM in NS 250ML 300 ML IV SCH ×2 (08:27→21:03)
[2021-05-22] MEDS: COLACE NG SCH ×3 (08:27→20:38)
[2021-05-22] MEDS: INFUVITE ADULT IV SCH (11:02)
[2021-05-22] MEDS: CLINIMIX IV SCH (11:02)
--- NOTE | 2021-05-22 11:09 | TELE.CONS ---
Consultation History of Present Illness History of Patient Comments remains vented on high PEEP 100% fi02 sedated paralyzed Vitals & Lab reviewed Review of Systems Allergies: Coded Allergies: ibuprofen (Verified Allergy, Unknown, 04/29/21) naproxen (Verified Allergy, Unknown, 04/29/21) VITALS REVIEW VITALS reviewed LABS LAB RESULTS reviewed VTE VTE Risk Total Score: 5 VTE Risk Score VTE Risk: Score 0-1 = Low Risk (Aggressive mobilization; early ambulation; no VTE prophylaxis required) Score 2: Moderate Risk (Intermittent/Pneumatic Compression Device OR Lovenox/Heparin/Coumadin) Score 3-4: High Risk (Intermittent/Pneumatic Compression Device AND Lovenox/Heparin/Coumadin) Score > or =5: Highest Risk (Intermittent/Pneumatic Compression Device AND Lovenox/Heparin/Coumadin) Antico:Hep/LMWH/Coum/Xarelto: Yes Mechanical device ordered: Yes VTE VTE Present on Admission: No Currently receiving anticoagul: Yes VTE Risk Total Score: 5 Antico:Hep/LMWH/Coum/Xarelto: Yes Mechanical device ordered: Yes Assessment/Plan Assessment/Plan Assessment/Plan 35 yo Female with hypoxemic respiratory failure/ARDS - COVID-19 infection BIPAP/therapeutic protocol completed ultimately requiring intubation 05/06 no significant improvement noted chart review indicated patient considered for transfer to tertiary center/ECMO but no beds available in [facility] or multiple neighboring states ongoing assessment for bed availability transient episode of hypotension reported requiring dec sedation and levophed restarted per staff was sync with the vent at the time remains on FI02 90% PMHx includes but is not limited to: obesity (BMI 34) Qtts: fentanyl 250 Precedex 1.1 Versed 6 levophed Chart and additional data reviewed: on 90% PEEP 16 CXR 05/21 unchanged Assessment/Plan Severe hypoxemia/ARDS from COVID-19 infection some small measure of improvement noted in oxygenation today and not proned for >48hours per staff but no significant improvement in oxygen requirements most recent ABG demonstrating adequate oxygenation but suboptimal ventilation when attempted to adjust FI02 down to 90 then 80% 05/20 - improved ventilation but suboptimal oxygenation when down to 80 inc back to 90 on 05/20 on AC 35/350/90/16 at this time ABG this am: 7. on AC 35/320/90/16 would continue to have a low threshold to use paralytic remains on TPN - bowel sounds remain hypoactive and no BM reported since 05/11 NGT remains on ILWS with little output calls to tertiary centers made daily by report no bed available DVT and GI prophylaxis Bedside rounds completed with nurse and bedside RT - All issues addressed at this time Patient seen through remote audiovisual assessment through HIPPA compliant technology Cumulative non-procedural critical care time spent in directed patient care 60 minutes Plan 35 yo Female with hypoxemic respiratory failure/ARDS - COVID-19 infection PMHx includes but is not limited to: obesity (BMI 34) Assessment/Plan Severe hypoxemia/ARDS from COVID-19 infection some small measure of improvement noted in oxygenation today swittched to pressure control TPN started secondary to aspiration and not tolerating tube feeds empiric abx bactermic restarted steroids glucose control check abg later consulted for trach, on high vent settings, if surgery and anesthesia comfortable with current settings would push for it DVT and GI prophylaxis Bedside rounds completed with nurse and bedside RT - All issues addressed at this time Patient seen through remote audiovisual assessment through HIPPA compliant technology Cumulative non-procedural critical care time spent in directed patient care 60 minutes Duration Duration or Time Spent with Pa: 60 mins DALIA SORIANO MD May 22, 2021 11:08
--- NOTE | 2021-05-22 11:15 | PRM.PN ---
Subjective Subjective Date: May 22, 2021 Time: 08:00 Subjective Remains intubated sedated, requiring high FiO2 1%, high PEEP 16. Low tidal volume, high rate. Continues to be on IV antibiotics, steroids, surgeon was consulted for possible tracheostomy. VTE VTE Risk Total Score: 5 VTE Risk Score VTE Risk: Score 0-1 = Low Risk (Aggressive mobilization; early ambulation; no VTE prophylaxis required) Score 2: Moderate Risk (Intermittent/Pneumatic Compression Device OR Lovenox/Heparin/Coumadin) Score 3-4: High Risk (Intermittent/Pneumatic Compression Device AND Lovenox/Heparin/Coumadin) Score > or =5: Highest Risk (Intermittent/Pneumatic Compression Device AND Lovenox/Heparin/Coumadin) Antico:Hep/LMWH/Coum/Xarelto: Yes Mechanical device ordered: Yes Review of Systems Other Unable to obtain, intubated sedated. Allergies: Coded Allergies: ibuprofen (Verified Allergy, Unknown, 04/29/21) naproxen (Verified Allergy, Unknown, 04/29/21) Objective Vitals and I/O Vital Sign - Last 24 Hours 05/21/21 05/21/21 05/21/21 05/21/21 11:09 11:15 11:30 11:45 Temp 98.4 98.4 98.4 Pulse 85 87 83 93 Resp 38 B/P (MAP) 131/58 (82) 123/55 (77) 134/60 (84) Pulse Ox 96 96 95 93 FiO2 90 05/21/21 05/21/21 05/21/21 05/21/21 12:00 12:00 12:00 12:02 Temp 98.4 98.4 Pulse 88 82 86 Resp 35 B/P (MAP) 125/58 (80) 122/56 (78) Pulse Ox 92 92 91 O2 Delivery Mechanical Ventilator FiO2 100 05/21/21 05/21/21 05/21/21 05/21/21 12:15 12:30 12:45 13:00 Temp 98.6 98.6 98.8 98.8 Pulse 90 84 90 86 B/P (MAP) 125/58 (80) 119/54 (75) 127/58 (81) 125/56 (79) Pulse Ox 91 91 90 91 05/21/21 05/21/21 05/21/21 05/21/21 13:15 13:30 13:45 14:00 Temp 99.0 99.1 99.1 99.3 Pulse 90 87 82 84 B/P (MAP) 121/56 (77) 117/56 (76) 113/51 (71) 116/54 (74) Pulse Ox 92 92 92 93 05/21/21 05/21/21 05/21/21 05/21/21 14:02 14:15 14:30 14:41 Temp 99.5 99.5 99.7 Pulse 84 79 66 75 Resp 37 B/P (MAP) 109/52 (71) 116/54 (74) 94/44 (61) Pulse Ox 93 94 95 94 FiO2 90 05/21/21 05/21/21 05/21/21 05/21/21 14:45 15:00 15:15 15:30 Temp 99.9 99.9 100.0 100.2 Pulse 90 79 88 86 B/P (MAP) 112/57 (75) 110/51 (70) 123/56 (78) 121/54 (76) Pulse Ox 93 97 96 96 05/21/21 05/21/21 05/21/21 05/21/21 15:45 16:00 16:00 16:02 Temp 100.2 100.4 100.4 Pulse 83 81 83 B/P (MAP) 114/50 (71) 118/53 (74) 119/55 (76) Pulse Ox 95 94 95 O2 Delivery Mechanical Ventilator 05/21/21 05/21/21 05/21/21 05/21/21 16:15 16:30 16:45 16:46 Temp 100.4 100.6 100.6 Pulse 91 91 87 79 Resp 35 B/P (MAP) 133/60 (84) 126/56 (79) 125/56 (79) Pulse Ox 94 96 92 93 FiO2 100 05/21/21 05/21/21 05/21/21 05/21/21 17:00 17:15 17:20 17:30 Temp 100.8 100.8 100.9 Pulse 86 96 102 96 Resp 38 B/P (MAP) 114/51 (72) 133/61 (85) 139/60 (86) Pulse Ox 93 94 93 95 FiO2 90 05/21/21 05/21/21 05/21/21 05/21/21 17:45 18:00 18:02 18:15 Temp 100.9 101.1 101.1 101.1 Pulse 98 93 89 94 B/P (MAP) 133/59 (83) 119/54 (75) 130/60 (83) 123/54 (77) Pulse Ox 94 94 95 95 05/21/21 05/21/21 05/21/21 05/21/21 19:00 19:15 19:30 19:45 Temp 101.3 101.5 101.5 101.5 Pulse 98 88 98 102 B/P (MAP) 130/58 (82) 122/54 (76) 147/70 (95) 129/62 (84) Pulse Ox 93 92 95 94 05/21/21 05/21/21 05/21/21 05/21/21 19:45 20:00 20:02 20:15 Temp 101.5 101.5 101.7 Pulse 85 86 82 B/P (MAP) 109/50 (69) 110/50 (70) 121/51 (74) Pulse Ox 93 93 96 O2 Delivery Mechanical Ventilator 05/21/21 05/21/21 05/21/21 05/21/21 20:30 20:34 20:39 20:45 Temp 101.7 101.8 Pulse 84 83 83 85 Resp 36 36 B/P (MAP) 115/50 (71) 114/50 (71) Pulse Ox 95 94 94 93 O2 Delivery Mechanical Ventilator FiO2 90 94 05/21/21 05/21/21 05/21/21 05/21/21 21:00 21:15 21:30 21:45 Temp 102.0 102.0 102.0 101.8 Pulse 83 94 97 85 B/P (MAP) 125/53 (77) 134/58 (83) 141/59 (86) 134/54 (80) Pulse Ox 95 95 96 94 05/21/21 05/21/21 05/21/21 05/21/21 22:00 22:02 22:15 22:30 Temp 101.8 101.7 101.7 101.1 Pulse 115 111 121 B/P (MAP) 143/62 (89) 144/63 (90) 102/62 (75) 125/53 (77) Pulse Ox 92 93 88 93 05/21/21 05/21/21 05/21/21 05/21/21 22:39 22:42 22:45 23:00 Temp 101.1 100.9 100.8 Pulse 95 116 113 93 Resp 36 B/P (MAP) 122/62 (82) 117/58 (77) 104/50 (68) 107/49 (68) Pulse Ox 95 94 95 90 FiO2 90 05/21/21 05/21/21 05/21/21 05/22/21 23:15 23:30 23:45 00:00 Temp 100.6 100.6 100.6 100.4 Pulse 88 114 91 81 B/P (MAP) 101/48 (65) 125/59 (81) 121/57 (78) 99/48 (65) Pulse Ox 83 87 84 05/22/21 05/22/21 05/22/21 05/22/21 00:02 00:15 00:30 00:32 Temp 100.4 100.6 100.6 Pulse 80 78 82 82 Resp 40 B/P (MAP) 100/48 (65) 131/80 (97) 144/93 (110) Pulse Ox 85 83 87 FiO2 90 05/22/21 05/22/21 05/22/21 05/22/21 00:45 01:00 01:15 01:30 Temp 100.6 100.6 100.6 100.6 Pulse 84 80 79 77 B/P (MAP) 148/97 (114) 136/87 (103) 135/87 (103) 133/87 (102) Pulse Ox 85 91 91 91 05/22/21 05/22/21 05/22/21 05/22/21 01:45 02:00 02:02 02:15 Temp 100.6 100.8 100.8 100.8 Pulse 77 74 76 75 B/P (MAP) 134/88 (103) 131/86 (101) 131/87 (102) 97/52 (67) Pulse Ox 92 92 92 92 05/22/21 05/22/21 05/22/21 05/22/21 02:30 02:38 02:45 02:55 Temp 100.6 100.4 Pulse 93 85 79 Resp 35 B/P (MAP) 119/59 (79) 121/55 (77) Pulse Ox 90 90 93 O2 Delivery Mechanical Ventilator FiO2 100 05/22/21 05/22/21 05/22/2126/21 03:00 03:04 03:15 03:30 Temp 100.2 100.2 100.0 Pulse 84 90 91 85 Resp 35 B/P (MAP) 126/57 (80) 133/61 (85) 121/55 (77) Pulse Ox 90 92 88 87 FiO2 90 05/22/21 05/22/21 05/22/21 05/22/21 03:45 04:00 04:15 04:30 Temp 99.9 99.7 99.5 99.5 Pulse 90 95 81 90 B/P (MAP) 136/63 (87) 141/66 (91) 132/60 (84) 137/64 (88) Pulse Ox 87 87 87 87 05/22/21 05/22/21 05/22/21 05/22/21 04:45 05:00 05:15 05:30 Temp 99.3 99.1 99.1 99.1 Pulse 81 78 77 71 B/P (MAP) 126/58 (80) 116/55 (75) 110/54 (72) 103/50 (67) Pulse Ox 87 86 85 89 05/22/21 05/22/21 05/22/21 05/22/21 05:45 06:00 06:00 06:02 Temp 99.1 99.0 99.0 Pulse 68 77 70 72 Resp 35 B/P (MAP) 107/53 (71) 102/53 (69) 102/53 (69) Pulse Ox 86 89 87 88 FiO2 90 05/22/21 05/22/21 06:15 06:30 Temp 99.0 99.0 Pulse 71 73 B/P (MAP) 100/52 (68) 102/54 (70) Pulse Ox 88 89 Intake and Output 05/22/21 07:00 Intake Total 4111 ml Output Total 4050 ml Balance 61 ml General: Other (Intubated sedated.) HEENT: Atraumatic, PERRLA, EOMI Neck: Supple, No JVD Lungs: Other (Coarse bilateral breath sounds, respirations non labored) Heart: No murmurs Abdomen: Normal bowel sounds, Soft Extremities: No clubbing, No cyanosis Skin: No rashes, No breakdown Neuro: Normal speech, Strength at 5/5 X4 ext, Other (Intubated sedated.) Psych/Mental Status: Other (Intubated sedated.) All Results(Lab/Rad) Laboratory Tests Test 05/02/21 06:37 05/02/21 08:25 White Blood Count 7.6 10^3/uL Red Blood Count 4.62 10^6/uL Hemoglobin 13.6 g/dL Hematocrit 40.6 % Mean Corpuscular Volume 87.9 fL Mean Corpuscular Hemoglobin 29.4 pg Mean Corpuscular Hemoglobin Concent 33.5 g/dL Red Cell Distribution Width 12.0 % Platelet Count 268 10^3/uL Mean Platelet Volume 10.5 fL Neutrophils (%) (Auto) 82.9 % Lymphocytes (%) (Auto) 11.7 % Monocytes (%) (Auto) 5.4 % Neutrophils # (Auto) 6.3 10^3/uL Lymphocytes # (Auto) 0.89 10^3/uL1 Monocytes # (Auto) 0.4 10^3/uL Absolute Immature Granulocyte (auto 0.12 10^3 u/L Absolute Eosinophils (auto) 0.0 10^3/uL Immature Granulocytes % 1.60 % Eosinophils % 0.0 % Basophils % 0.0 % Basophils # 0.0 10^3/uL Sodium Level 140 mmol/L Potassium Level 4.7 mmol/L Chloride Level 104.0 mmol/L Carbon Dioxide Level 27.6 mmol/L Anion Gap 13.1 Blood Urea Nitrogen 14 mg/dL Creatinine 0.62 mg/dL Estimated GFR () 131.8 Est GFR (CKD-EPI)(Non-Afr [place]) 108.9 BUN/Creatinine Ratio 22.0 Glucose Level 121 mg/dL Calcium Level 8.8 mg/dL Total Bilirubin 0.4 mg/dL Aspartate Amino Transf (AST/SGOT) 26 U/L Alanine Aminotransferase (ALT/SGPT) 37 U/L Alkaline Phosphatase 42 U/L Total Protein 6.7 g/dL Albumin 2.5 g/dL Globulin 4.2 Albumin/Globulin Ratio 0.595 Blood Gas Sample Site RT RADIAL ARTERY Blood Gas pH 7.405 Blood Gas PCO2 41.1 mmHg Blood Gas PO2 82.5 mmHg Blood Gas HCO3 25.2 mmol/L Blood Gas Base Excess 0.4 mmol/L Lucas Test POSITIVE Arterial Blood Oxygen Saturation 95.5 % Deoxyhemoglobin 4.5 % Carboxyhemoglobin 0.6 % Methemoglobin 0.3 % Total Hemoglobin 14.6 % Total Oxygen Concentration 19.5 % Blood Gas Temperature 37 Oxygen Delivery Method (LAB) BIPAP15/7 FiO2 99 % Total Carbon Dioxide 26.4 mmol/L Current Medications Medications (Trade) Dose Ordered Sig/Davon Route PRN Reason Start Time Stop Time Status Last Admin Dose Admin Remdesivir 200 mg/ Sodium Chloride 140 ml @ 120.69 mls/ hr OT STAT IV 04/28/21 19:53 04/29/21 08:10 DC 04/28/21 19:53 Remdesivir 100 mg/ Sodium Chloride 120 ml @ 111.111 mls/hr Q24HRS IV 04/29/21 20:00 05/02/21 21:05 05/01/21 20:50 Famotidine (Pepcid) 20 mg BID PO 04/28/21 21:00 05/28/21 20:59 05/02/21 09:29 Sucralfate (Carafate) 1 gm ACHS PO 04/28/21 21:00 05/28/21 20:59 05/02/21 07:30 Enoxaparin Sodium (Lovenox) 40 mg Q24HRS SQ 04/28/21 20:00 05/28/21 19:59 05/01/21 20:50 Sucralfate (Carafate) 1 gm STK-MED ONCE PO 04/28/21 20:56 04/28/21 20:56 DC Lorazepam (Ativan) 1 mg Q4HR PRN IV ANXIETY 04/29/21 00:00 05/29/21 00:00 04/30/21 22:30 Lorazepam (Ativan) 0.5 mg Q4HR PRN IV ANXIETY 04/29/21 00:00 05/29/21 00:00 Fentanyl Citrate (Sublimaze) 50 mcg STK-MED ONCE .ROUTE 04/29/21 11:37 04/29/21 11:38 DC Fentanyl Citrate (Sublimaze) 12.5 mcg OT ONCE IV 04/29/21 15:00 04/29/21 15:06 DC 04/29/21 13:35 Acetaminophen (Tylenol) 650 mg Q6HR PRN PO PAIN 1 - 3 04/30/21 18:00 05/02/21 18:00 05/01/21 06:28 Dexmedetomidine HCl 200 mcg/ Sodium Chloride 50 ml @ 0 mls/hr IV 05/01/21 10:30 05/01/21 11:28 DC Sodium Chloride 250 ml @ ud STK-MED ONCE .ROUTE 05/01/21 20:40 05/01/21 20:40 DC Assessment/Plan Assessment/Plan Assessment/Plan Problems: (1) Acute hypoxemic respiratory failure ICD Code: J96.01 - Acute respiratory failure with hypoxia SNOMED: 436295052 (2) Pneumonia due to COVID-19 virus Status: Acute ICD Code: U07.1 - COVID-19; J12.82 - Pneumonia due to coronavirus disease 2018 SNOMED: 288339410484581436 (3) Bacteremia due to Gram-positive bacteria ICD Code: R78.81 - Bacteremia SNOMED: 445894852645 (4) Bacterial pneumonia ICD Code: J15.9 - Unspecified bacterial pneumonia SNOMED: 53554283 Plan Plan Continue full ventilator support, patient still requiring high FiO2, high PEEP, low tidal volume, high citrate. Continue IV antibiotics cefepime and vancomycin as per ID Surgeon consulted for possible tracheostomy, case discussed with telemetry lan manager who agrees. Steroids Nutrition, TPN as per nutrition/dietitian GI and DVT prophylaxis Patient presenting with potentially life-threatening condition, critical care time spent examining the patient, reviewing labs, images, discussing the case with UNDERWRITER SOLICITATION DIRECTOR, respiratory therapist, ICU Telemetryintensivist 55 minutes. ALANNA GARCIA MD May 22, 2021 11:15
[2021-05-22 12:08] LABS: ABG PCO2 72.2 mmHg (35.0-45.0); BE(B) 4.1 mmol/L (-2.0-2.0); HCO3act 32.4 mmol/L (22.0-26.0); pO2 50.3 mmHg (80.0-100.0)
--- NOTE | 2021-05-22 12:26 | NUR ---
NOTIFIED DR. MATTHEW OF ABG RESULTS DR. MATTHEW TALKING TO RT.
[2021-05-22] MEDS: SOLU-MEDROL IV SCH ×3 (12:27→21:02)
[2021-05-22] MEDS: OFIRMEV IV PRN (12:27)
--- NOTE | 2021-05-22 13:45 | NUR ---
BP 81/39 LEVOPHED STARTED @ 2MCG/KG/MIN AND TITRATED FOR A MAP OF 60
[2021-05-22] MEDS: VERSED IV SCH (17:00)
[2021-05-22] MEDS: LIPID EMULSION IV SCH (17:00)
--- NOTE | 2021-05-22 18:05 | PRM.PN ---
Progress Note Subjective Physician Notes: Had anesthesia see the pt and they are in agreement that currently she is not stable enough to safely do her trach tomorrow. Trach will be delayed until pt is safe. Surgery will follow. Objective Review IO, Exams,& Results Vital Signs Date Time Temp Pulse Resp B/P (MAP) Pulse Ox O2 Delivery O2 Flow Rate FiO2 05/22/21 17:08 70 36 93 100 05/22/21 17:00 99.9 116/54 (74) 05/22/21 16:15 Mechanical Ventilator Intake and Output 05/22/21 06:59 Intake Total 4111 ml Output Total 4050 ml Balance 61 ml Electrolyte Solution 4111 ml Output Urine Total 4050 ml Laboratory Tests Test 05/20/21 23:40 05/21/21 04:42 05/21/21 05:10 05/21/21 08:41 Bedside Glucose 187 White Blood Count 12.0 10^3/uL Red Blood Count 2.95 10^6/uL Hemoglobin 8.9 g/dL Hematocrit 28.6 % Mean Corpuscular Volume 96.9 fL Mean Corpuscular Hemoglobin 30.2 pg Mean Corpuscular Hemoglobin Concent 31.1 g/dL Red Cell Distribution Width 14.2 % Platelet Count 241 10^3/uL Mean Platelet Volume 11.2 fL Sodium Level 144 mmol/L Potassium Level 3.8 mmol/L Chloride Level 109.0 mmol/L Carbon Dioxide Level 32.2 mmol/L Anion Gap 6.6 Blood Urea Nitrogen 32 mg/dL Creatinine 0.56 mg/dL Estimated GFR () 148.2 Est GFR (CKD-EPI)(Non-Afr [place]) 122.5 BUN/Creatinine Ratio 57.0 Glucose Level 193 mg/dL Calcium Level 8.4 mg/dL Total Bilirubin 0.3 mg/dL Aspartate Amino Transf (AST/SGOT) 27 U/L Alanine Aminotransferase (ALT/SGPT) 43 U/L Alkaline Phosphatase 102 U/L Total Protein 5.9 g/dL Albumin 1.8 g/dL Globulin 4.1 Albumin/Globulin Ratio 0.439 Triglycerides Level 164 mg/dL Blood Gas Sample Site ART LINE Blood Gas pH 7.255 Blood Gas PCO2 72.2 mmHg Blood Gas PO2 61.5 mmHg Blood Gas HCO3 31.3 mmol/L Blood Gas Base Excess 3.0 mmol/L Lucas Test POSITIVE Arterial Blood Oxygen Saturation 88.4 % Deoxyhemoglobin 11.4 % Carboxyhemoglobin 0.8 % Methemoglobin 0.5 % Total Hemoglobin 9.5 % Total Oxygen Concentration 11.7 % Blood Gas Temperature 37 Oxygen Delivery Method (LAB) VENT Blood Gas Vent Mode AC Blood Gas Vent Rate 35 FiO2 90 % Blood Gas Tidal Volume 320 ML Blood Gas PEEP 16 CMH2O Total Carbon Dioxide 33.5 mmol/L Vancomycin Level Trough 19.1 ug/mL Test 05/21/21 10:48 05/21/21 16:14 05/22/21 04:37 05/22/21 05:30 Bedside Glucose 157 181 White Blood Count 14.0 10^3/uL Red Blood Count 2.93 10^6/uL Hemoglobin 8.7 g/dL Hematocrit 28.6 % Mean Corpuscular Volume 97.6 fL Mean Corpuscular Hemoglobin 29.7 pg Mean Corpuscular Hemoglobin Concent 30.4 g/dL Red Cell Distribution Width 15.5 % Platelet Count 280 10^3/uL Mean Platelet Volume 10.4 fL Neutrophils (%) (Auto) 83.8 % Lymphocytes (%) (Auto) 10.8 % Monocytes (%) (Auto) 2.8 % Neutrophils # (Auto) 11.8 10^3/uL Lymphocytes # (Auto) 1.52 10^3/uL1 Monocytes # (Auto) 0.4 10^3/uL Absolute Immature Granulocyte (auto 0.94 10^3 u/L Absolute Eosinophils (auto) 0.4 10^3/uL Immature Granulocytes % 6.70 % Eosinophils % 2.5 % Basophils % 0.1 % Basophils # 0.0 10^3/uL Sodium Level 145 mmol/L Potassium Level 3.6 mmol/L Chloride Level 107.0 mmol/L Carbon Dioxide Level 31.1 mmol/L Anion Gap 10.5 Blood Urea Nitrogen 31 mg/dL Creatinine 0.60 mg/dL Estimated GFR () 136.9 Est GFR (CKD-EPI)(Non-Afr [place]) 113.1 BUN/Creatinine Ratio 51.0 Glucose Level 197 mg/dL Calcium Level 8.4 mg/dL Total Bilirubin 0.7 mg/dL Aspartate Amino Transf (AST/SGOT) 47 U/L Alanine Aminotransferase (ALT/SGPT) 73 U/L Alkaline Phosphatase 137 U/L Total Protein 6.4 g/dL Albumin 1.7 g/dL Globulin 4.7 Albumin/Globulin Ratio 0.361 Blood Gas Sample Site ART LINE Blood Gas pH 7.256 Blood Gas PCO2 72.3 mmHg Blood Gas PO2 62.0 mmHg Blood Gas HCO3 31.4 mmol/L Blood Gas Base Excess 3.2 mmol/L Lucas Test N/A Arterial Blood Oxygen Saturation 89.0 % Deoxyhemoglobin 10.8 % Carboxyhemoglobin 1.2 % Methemoglobin 0.6 % Total Hemoglobin 9.2 % Total Oxygen Concentration 11.4 % FiO2 90 % Blood Gas PEEP 16.0 CMH2O Total Carbon Dioxide 33.6 mmol/L Test 05/22/21 11:02 05/22/21 11:55 05/22/21 16:24 Bedside Glucose 169 234 Blood Gas Sample Site ART LINE Blood Gas pH 7.270 Blood Gas PCO2 72.2 mmHg Blood Gas PO2 50.3 mmHg Blood Gas HCO3 32.4 mmol/L Blood Gas Base Excess 4.1 mmol/L Lucas Test N/A Arterial Blood Oxygen Saturation 82.4 % Deoxyhemoglobin 17.5 % Carboxyhemoglobin 0.5 % Methemoglobin 0.2 % Total Hemoglobin 10.0 % Total Oxygen Concentration 11.5 % Oxygen Delivery Method (LAB) MV Blood Gas Vent Mode ACPC 26 Blood Gas Vent Rate 35 FiO2 100 % Blood Gas PEEP 16 CMH2O Total Carbon Dioxide 34.6 mmol/L Current Medications Medications (Trade) Dose Ordered Sig/Davon PRN Reason Start Time Stop Time Status Last Admin Fat Emulsion Intravenous 250 ml @ 15 mls/hr Q2D 05/20/21 17:00 06/19/21 16:59 05/20/21 17:00 Methylprednisolone Sodium Succinate (Solu-Medrol) 40 mg Q8HR 05/22/21 10:30 06/21/21 10:29 05/22/21 12:27 Vancomycin HCl 1.5 gm/Sodium Chloride 300 ml @ 175 mls/hr Q12HR 05/19/21 21:00 06/18/21 20:59 05/22/21 08:27 NGOZI BAUTISTA MD May 22, 2021 18:05
[2021-05-22] MEDS: LEVOPHED 8 MG in NS 250ML 250 ML IV SCH (18:12)
--- NOTE | 2021-05-22 18:39 | NUR ---
REPORT RECEIVED FROM KULDIP ROUSSEAU RN. ASSUMED PT CARE.
[2021-05-23] VITALS (108 sets, daily range): BP systolic 84–163; BP diastolic 40–71
[2021-05-23 04:32] LABS: ABG PH 7.265 (7.350-7.450); BE(B) 2.7 mmol/L (-2.0-2.0); HCO3act 30.6 mmol/L (22.0-26.0); pO2 69.4 mmHg (80.0-100.0)
[2021-05-23 05:08] LABS: BASOPHIL % 0.1 % (0.0-0.2); EOSINOPHIL % 0.1 % (0.0-5.0); LYMPHOCYTES # 0.99 10^3/uL1 (1.0-4.8); LYMPHOCYTES % 7.3 % (24.0-44.0); MEAN CORP HGB 29.9 pg (26-34); MONOCYTES # 0.2 10^3/uL (0.3-0.8); MONOCYTES % 1.7 % (5.0-12.0); NEUTROPHIL # 12.4 10^3/uL (1.8-7.7); NEUTROPHILS % 90.8 % (41.0-85.0); PLATELET COUNT 301 10^3/uL (150-400); RED CELL DISTRIBUTION WIDTH 14.9 % (11.5-14.5)
[2021-05-23 05:21] LABS: CALCIUM 8.7 mg/dL (8.4-10.5); CARBON DIOXIDE 31.4 mmol/L (20.0-32)
[2021-05-23] MEDS: SOLU-MEDROL IV SCH ×3 (05:55→22:44)
[2021-05-23] MEDS: SUBLIMAZE IV SCH (05:57)
[2021-05-23] MEDS: PRECEDEX 400 MCG/100 ML INJECT 100 ML IV SCH ×5 (05:57→21:11)
[2021-05-23] MEDS: NS IV SCH ×2 (05:57→13:49)
--- NOTE | 2021-05-23 06:45 | NUR ---
REPORT TO ONCOMING SHIFT. PT CARE RELINQUISHED.
[2021-05-23 06:54] LABS: BAND NEUTROPHILS 1 % (2-6); DIFFERENTIAL COMMENT NORMAL; LYMPHOCYTE 8 % (25-36); SEGMENTED NEUTROPHILS 90 % (31-76)
--- NOTE | 2021-05-23 07:58 | DIREP ---
PROCEDURE:CHEST 1 VIEW COMPARISON:[facility], CR, XRAY CHEST SINGLE VW, 05/22/2021, 07:04 AM. [facility], CR, XRAY CHEST SINGLE VW, 05/21/2021, 07:19 AM. INDICATIONS:covid FINDINGS: LUNGS/PLEURA:Significant multi lobar diffuse infiltrates without significant interval change on the left. Subtle aeration and decreased opacity on right. No pneumothorax. VASCULATURE:Normal. Unremarkable pulmonary vasculature. CARDIAC:Normal. No cardiac silhouette abnormality or cardiomegaly. MEDIASTINUM:Normal. No visible mass or adenopathy. BONES:Normal. No fracture or visible bony lesion. OTHER:Stable left central venous catheter, enteric tube, and endotracheal tube. CONCLUSION:Minimal to no significant change in improvement of lung airspace disease. Supporting tubes and lines described above without significant interval change in position. Dictated by: Delvin Norton MD on 05/23/2021 at 07:54 AM
[2021-05-23] MEDS ORDERED: KCL 20MEQ/100ML 100 ML IV STA (08:11)
--- NOTE | 2021-05-23 08:15 | NUR ---
LEVOPHED DECREASED TO 5 MCG/MIN BP 137/62
[2021-05-23] MEDS ORDERED: NS 500ML 500 ML IV ONE (08:43)
[2021-05-23] MEDS: LASIX IV SCH (08:48)
[2021-05-23] MEDS: COLACE NG SCH ×2 (08:49→20:47)
[2021-05-23] MEDS: VANCOMYCIN HCL 1.5 GM in NS 250ML 300 ML IV SCH ×2 (08:49→21:11)
[2021-05-23] MEDS: MAXIPIME 2 GM in NS 100ML 100 ML IV SCH (08:49)
[2021-05-23] MEDS: PEPCID IV SCH ×2 (08:49→20:13)
--- NOTE | 2021-05-23 09:00 | NUR ---
HR 35 PRECEDEX STOPPED. LEVOPHED DECREASED TO 3MCG/MIN FENTANYL INCREASED TO 250 MCG/HR
[2021-05-23] MEDS: NORCURON IV PRN ×6 (09:48→23:30)
[2021-05-23] MEDS: INFUVITE ADULT IV SCH (10:26)
[2021-05-23] MEDS: CLINIMIX IV SCH (10:26)
--- NOTE | 2021-05-23 10:55 | NUR ---
LEVOPHED OFF BP ELEVATED. FENTANYL INCREASED TO 300 MCG/HR. HR 110s RESTARTED PRECEDEX TO 0.2MCG/KG/HR
[2021-05-23] MEDS: LOVENOX SQ SCH ×2 (11:04→20:13)
--- NOTE | 2021-05-23 11:31 | PRM.PN ---
Subjective Subjective Date: May 23, 2021 Time: 09:00 Subjective Remains intubated, sedated. Currently patient is on PRVC. FiO2 100%. VTE VTE Risk Total Score: 5 VTE Risk Score VTE Risk: Score 0-1 = Low Risk (Aggressive mobilization; early ambulation; no VTE prophylaxis required) Score 2: Moderate Risk (Intermittent/Pneumatic Compression Device OR Lovenox/Heparin/Coumadin) Score 3-4: High Risk (Intermittent/Pneumatic Compression Device AND Lovenox/Heparin/Coumadin) Score > or =5: Highest Risk (Intermittent/Pneumatic Compression Device AND Lovenox/Heparin/Coumadin) Antico:Hep/LMWH/Coum/Xarelto: Yes Mechanical device ordered: Yes Review of Systems Other Unable to obtain, patient intubated sedated. Allergies: Coded Allergies: ibuprofen (Verified Allergy, Unknown, 04/29/21) naproxen (Verified Allergy, Unknown, 04/29/21) Objective Vitals and I/O Vital Sign - Last 24 Hours 05/22/21 05/22/21 05/22/21 05/22/21 11:30 11:30 11:43 11:45 Temp 100.4 100.4 100.6 Pulse 88 88 91 88 Resp 35 35 B/P (MAP) 125/54 (77) 125/54 (77) 119/52 (74) Pulse Ox 87 87 84 85 FiO2 100 05/22/21 05/22/21 05/22/21 05/22/21 12:00 12:02 12:05 12:05 Temp 100.8 100.8 Pulse 88 86 B/P (MAP) 116/51 (72) 115/50 (71) Pulse Ox 84 83 O2 Delivery Mechanical Ventilator FiO2 100 05/22/21 05/22/21 05/22/21 05/22/21 12:15 12:30 12:33 12:45 Temp 100.9 100.9 100.8 Pulse 98 86 82 84 Resp 38 B/P (MAP) 88/41 (57) 107/49 (68) 101/47 (65) Pulse Ox 82 84 85 85 FiO2 100 05/22/21 05/22/21 05/22/21 05/22/21 13:00 13:15 13:30 13:45 Temp 100.6 100.4 100.2 100.0 Pulse 81 79 80 76 B/P (MAP) 92/43 (59) 89/43 (58) 88/42 (57) 85/42 (56) Pulse Ox 85 84 83 88 05/22/21 05/22/21 05/22/21 05/22/21 14:00 14:02 14:15 14:30 Temp 100.0 100.0 100.0 100.0 Pulse 70 76 64 64 Resp 25 B/P (MAP) 85/41 (56) 89/44 (59) 101/50 (67) 96/46 (63) Pulse Ox 86 85 86 87 05/22/21 05/22/21 05/22/21 05/22/21 14:45 14:50 15:00 15:15 Temp 100.0 100.0 99.9 Pulse 68 70 69 82 Resp 38 25 B/P (MAP) 98/49 (65) 87/45 (59) 109/54 (72) Pulse Ox 88 89 87 92 FiO2 100 05/22/21 05/22/21 05/22/21 05/22/21 15:30 15:45 16:00 16:02 Temp 99.9 99.9 99.9 99.9 Pulse 64 68 69 69 B/P (MAP) 107/52 (70) 100/50 (67) 117/57 (77) 115/56 (75) Pulse Ox 92 91 90 90 05/22/21 05/22/21 05/22/21 05/22/21 16:15 16:15 16:15 16:30 Temp 99.9 99.9 Pulse 68 67 B/P (MAP) 113/55 (74) 124/57 (79) Pulse Ox 91 93 O2 Delivery Mechanical Ventilator FiO2 100 05/22/21 05/22/21 05/22/21 05/22/21 16:45 17:00 17:08 17:15 Temp 99.9 99.9 99.9 Pulse 70 67 70 65 Resp 25 36 B/P (MAP) 118/56 (76) 116/54 (74) 133/68 (89) Pulse Ox 93 93 93 95 FiO2 100 05/22/21 05/22/21 05/22/21 05/22/21 17:30 17:45 18:00 18:01 Temp 100.0 100.2 100.0 100.0 Pulse 77 63 67 72 B/P (MAP) 133/62 (85) 128/59 (82) 136/64 (88) 134/61 (85) Pulse Ox 94 92 91 90 05/22/21 05/22/21 05/22/21 05/22/21 18:15 18:30 18:45 19:00 Temp 100.0 99.9 99.9 99.8 Pulse 75 75 72 72 B/P (MAP) 124/57 (79) 133/61 (85) 127/60 (82) 131/60 (83) Pulse Ox 89 87 89 90 05/22/21 05/22/21 05/22/21 05/22/21 19:15 19:30 19:45 19:50 Temp 99.8 99.5 99.5 Pulse 68 71 70 B/P (MAP) 109/52 (71) 137/64 (88) 129/62 (84) Pulse Ox 90 91 92 O2 Delivery Mechanical Ventilator 05/22/21 05/22/21 05/22/21 05/22/21 20:00 20:00 20:01 20:15 Temp 99.5 99.5 99.5 Pulse 68 65 68 62 Resp 36 B/P (MAP) 133/63 (86) 133/63 (86) 131/62 (85) Pulse Ox 92 92 91 91 FiO2 100 05/22/21 05/22/21 05/22/21 05/22/21 20:30 20:45 20:46 21:00 Temp 99.3 99.3 99.2 Pulse 62 67 66 61 Resp 24 B/P (MAP) 135/63 (87) 134/62 (86) 130/57 (81) Pulse Ox 91 91 91 91 FiO2 100 05/22/21 05/22/21 05/22/21 05/22/21 21:03 21:15 21:30 21:45 Temp 99.2 99.1 99.1 Pulse 66 72 64 63 Resp 24 B/P (MAP) 139/65 (89) 124/54 (77) 139/65 (89) Pulse Ox 91 88 93 94 O2 Delivery Mechanical Ventilator 05/22/21 05/22/21 05/22/21 05/22/21 22:00 22:01 22:04 22:15 Temp 98.9 98.9 98.9 Pulse 56 64 56 66 Resp 38 B/P (MAP) 130/59 (82) 136/62 (86) 129/60 (83) Pulse Ox 91 91 90 89 FiO2 100 05/22/21 05/22/21 05/22/21 05/22/21 22:30 22:45 23:00 23:15 Temp 98.7 98.7 98.6 98.4 Pulse 64 66 61 64 B/P (MAP) 142/65 (90) 126/59 (81) 139/64 (89) 143/66 (91) Pulse Ox 91 87 89 90 05/22/21 05/22/21 05/22/21 05/22/21 23:30 23:35 23:35 23:45 Temp 98.4 98.4 Pulse 57 61 58 Resp 25 B/P (MAP) 142/66 (91) 139/66 (90) Pulse Ox 90 91 91 O2 Delivery Mechanical Ventilator FiO2 100 05/23/21 05/23/21 05/23/21 05/23/21 00:00 00:01 00:08 00:15 Temp 98.4 98.4 98.4 Pulse 57 58 55 54 Resp 38 B/P (MAP) 141/65 (90) 139/65 (89) 136/60 (85) Pulse Ox 91 92 90 91 FiO2 100 05/23/21 05/23/21 05/23/21 05/23/21 00:30 00:45 01:00 01:15 Temp 98.4 98.4 98.4 98.4 Pulse 61 58 52 53 B/P (MAP) 137/64 (88) 135/63 (87) 138/63 (88) 138/63 (88) Pulse Ox 93 93 92 93 05/23/21 05/23/21 05/23/21 05/23/21 01:30 01:45 02:00 02:01 Temp 98.4 98.4 98.4 98.4 Pulse 53 53 51 51 B/P (MAP) 137/62 (87) 141/64 (89) 137/62 (87) 140/64 (89) Pulse Ox 93 93 93 93 05/23/21 05/23/21 05/23/21 05/23/21 02:07 02:15 02:30 02:45 Temp 98.4 98.4 98.4 Pulse 52 55 47 55 Resp 43 B/P (MAP) 142/66 (91) 137/61 (86) 142/67 (92) Pulse Ox 93 92 94 93 FiO2 100 05/23/21 05/23/21 05/23/21 05/23/21 03:00 03:15 03:30 03:39 Temp 98.4 98.6 98.6 Pulse 56 59 58 60 Resp 28 B/P (MAP) 137/63 (87) 142/65 (90) 135/61 (85) Pulse Ox 92 91 91 92 FiO2 100 05/23/21 05/23/21 05/23/21 05/23/21 03:39 03:45 04:00 04:01 Temp 98.4 98.4 98.4 Pulse 57 58 58 B/P (MAP) 136/61 (86) 136/60 (85) 139/64 (89) Pulse Ox 91 92 92 O2 Delivery Mechanical Ventilator 05/23/21 05/23/21 05/23/21 05/23/21 04:09 04:15 04:30 04:45 Temp 98.4 98.4 98.4 Pulse 58 61 59 59 Resp 42 B/P (MAP) 140/63 (88) 132/60 (84) 136/62 (86) Pulse Ox 92 92 92 92 FiO2 100 05/23/21 05/23/21 05/23/21 05/23/21 05:00 05:15 05:30 05:45 Temp 98.4 98.2 98.2 98.2 Pulse 58 52 61 56 B/P (MAP) 139/64 (89) 131/57 (81) 141/66 (91) 133/59 (83) Pulse Ox 93 91 92 93 05/23/21 05/23/21 05/23/21 05/23/21 06:00 06:01 06:15 06:30 Temp 98.2 98.2 98.2 98.2 Pulse 54 56 58 61 B/P (MAP) 133/58 (83) 133/61 (85) 140/64 (89) 140/63 (88) Pulse Ox 91 91 93 93 05/23/21 05/23/21 05/23/21 05/23/21 07:23 07:25 07:25 08:15 Pulse 66 58 Resp 44 35 42 Pulse Ox 93 91 92 O2 Delivery Mechanical Ventilator FiO2 100 100 100 05/23/21 05/23/21 08:15 09:40 Pulse 70 Resp 37 Pulse Ox 87 O2 Delivery Mechanical Ventilator FiO2 100 Intake and Output 05/23/21 07:00 Intake Total 3094 ml Output Total 2225 ml Balance 869 ml General: Other (Intubated sedated.) HEENT: Atraumatic, PERRLA, EOMI Neck: Supple, No JVD Extremities: No clubbing, No cyanosis Neuro: Other (Intubated sedated.) Psych/Mental Status: Other (Intubated sedated.) All Results(Lab/Rad) Laboratory Tests Test 05/02/21 06:37 05/02/21 08:25 White Blood Count 7.6 10^3/uL Red Blood Count 4.62 10^6/uL Hemoglobin 13.6 g/dL Hematocrit 40.6 % Mean Corpuscular Volume 87.9 fL Mean Corpuscular Hemoglobin 29.4 pg Mean Corpuscular Hemoglobin Concent 33.5 g/dL Red Cell Distribution Width 12.0 % Platelet Count 268 10^3/uL Mean Platelet Volume 10.5 fL Neutrophils (%) (Auto) 82.9 % Lymphocytes (%) (Auto) 11.7 % Monocytes (%) (Auto) 5.4 % Neutrophils # (Auto) 6.3 10^3/uL Lymphocytes # (Auto) 0.89 10^3/uL1 Monocytes # (Auto) 0.4 10^3/uL Absolute Immature Granulocyte (auto 0.12 10^3 u/L Absolute Eosinophils (auto) 0.0 10^3/uL Immature Granulocytes % 1.60 % Eosinophils % 0.0 % Basophils % 0.0 % Basophils # 0.0 10^3/uL Sodium Level 140 mmol/L Potassium Level 4.7 mmol/L Chloride Level 104.0 mmol/L Carbon Dioxide Level 27.6 mmol/L Anion Gap 13.1 Blood Urea Nitrogen 14 mg/dL Creatinine 0.62 mg/dL Estimated GFR () 131.8 Est GFR (CKD-EPI)(Non-Afr Prydeinig) 108.9 BUN/Creatinine Ratio 22.0 Glucose Level 121 mg/dL Calcium Level 8.8 mg/dL Total Bilirubin 0.4 mg/dL Aspartate Amino Transf (AST/SGOT) 26 U/L Alanine Aminotransferase (ALT/SGPT) 37 U/L Alkaline Phosphatase 42 U/L Total Protein 6.7 g/dL Albumin 2.5 g/dL Globulin 4.2 Albumin/Globulin Ratio 0.595 Blood Gas Sample Site RT RADIAL ARTERY Blood Gas pH 7.405 Blood Gas PCO2 41.1 mmHg Blood Gas PO2 82.5 mmHg Blood Gas HCO3 25.2 mmol/L Blood Gas Base Excess 0.4 mmol/L Lucas Test POSITIVE Arterial Blood Oxygen Saturation 95.5 % Deoxyhemoglobin 4.5 % Carboxyhemoglobin 0.6 % Methemoglobin 0.3 % Total Hemoglobin 14.6 % Total Oxygen Concentration 19.5 % Blood Gas Temperature 37 Oxygen Delivery Method (LAB) [id number]/7 FiO2 99 % Total Carbon Dioxide 26.4 mmol/L Current Medications Medications (Trade) Dose Ordered Sig/Davon Route PRN Reason Start Time Stop Time Status Last Admin Dose Admin Remdesivir 200 mg/ Sodium Chloride 140 ml @ 120.69 mls/ hr OT STAT IV 04/28/21 19:53 04/29/21 08:10 DC 04/28/21 19:53 Remdesivir 100 mg/ Sodium Chloride 120 ml @ 111.111 mls/hr Q24HRS IV 04/29/21 20:00 05/02/21 21:05 05/01/21 20:50 Famotidine (Pepcid) 20 mg BID PO 04/28/21 21:00 05/28/21 20:59 05/02/21 09:29 Sucralfate (Carafate) 1 gm ACHS PO 04/28/21 21:00 05/28/21 20:59 05/02/21 07:30 Enoxaparin Sodium (Lovenox) 40 mg Q24HRS SQ 04/28/21 20:00 05/28/21 19:59 05/01/21 20:50 Sucralfate (Carafate) 1 gm STK-MED ONCE PO 04/28/21 20:56 04/28/21 20:56 DC Lorazepam (Ativan) 1 mg Q4HR PRN IV ANXIETY 04/29/21 00:00 05/29/21 00:00 04/30/21 22:30 Lorazepam (Ativan) 0.5 mg Q4HR PRN IV ANXIETY 04/29/21 00:00 05/29/21 00:00 Fentanyl Citrate (Sublimaze) 50 mcg STK-MED ONCE .ROUTE 04/29/21 11:37 04/29/21 11:38 DC Fentanyl Citrate (Sublimaze) 12.5 mcg OT ONCE IV 04/29/21 15:00 04/29/21 15:06 DC 04/29/21 13:35 Acetaminophen (Tylenol) 650 mg Q6HR PRN PO PAIN 1 - 3 04/30/21 18:00 05/02/21 18:00 05/01/21 06:28 Dexmedetomidine HCl 200 mcg/ Sodium Chloride 50 ml @ 0 mls/hr IV 05/01/21 10:30 05/01/21 11:28 DC Sodium Chloride 250 ml @ ud STK-MED ONCE .ROUTE 05/01/21 20:40 05/01/21 20:40 DC Assessment/Plan Assessment/Plan Assessment/Plan Problems: (1) Acute hypoxemic respiratory failure ICD Code: J96.01 - Acute respiratory failure with hypoxia SNOMED: 836140197 (2) Pneumonia due to COVID-19 virus Status: Acute ICD Code: U07.1 - COVID-19; J12.82 - Pneumonia due to coronavirus disease 2019 SNOMED: 125404180286511576 (3) Bacteremia due to Gram-positive bacteria ICD Code: R78.81 - Bacteremia SNOMED: 918193430265 (4) Bacterial pneumonia ICD Code: J15.9 - Unspecified bacterial pneumonia SNOMED: 23001106 Plan Plan Continue full ventilator support, PRBC,. Continue IV antibiotics cefepime and vancomycin as per ID Patient was evaluated by anesthesia and surgery, patient is unstable for OR/tracheostomy. Steroids Nutrition, TPN as per nutrition/dietitian GI and DVT prophylaxis Patient presenting with potentially life-threatening condition, critical care time spent examining the patient, reviewing labs, images, discussing the case with BLOW M[employer] MACHINE OPERATOR, respiratory therapist, 50 minutes. ALANNA GARCIA MD May 23, 2021 11:31
--- NOTE | 2021-05-23 11:45 | NUR ---
INCREASED PRECEDEX TO BY 0.2MCG/KG/HR EVER 15 MINUTES UP TO 0.4MCG/KG/HR ORDERED.
--- NOTE | 2021-05-23 11:46 | TELE.CONS ---
Review of Systems Allergies: Coded Allergies: ibuprofen (Verified Allergy, Unknown, 04/29/21) naproxen (Verified Allergy, Unknown, 04/29/21) VITALS REVIEW VITALS Vital Sign - Last 24 Hours 05/19/21 05/19/21 05/19/21 05/19/21 07:00 07:04 07:15 07:30 Temp 97.9 97.9 98.1 Pulse 62 64 66 B/P (MAP) 102/52 (69) 103/52 (69) 109/55 (73) Pulse Ox 95 95 95 FiO2 100 05/19/21 05/19/21 05/19/21 05/19/21 07:45 08:00 08:00 08:15 Temp 98.1 98.1 98.1 Pulse 64 75 76 B/P (MAP) 105/53 (70) 110/58 (75) 119/57 (77) 120/60 (80) Pulse Ox 95 96 96 O2 Delivery Mechanical Ventilator 05/19/21 05/19/21 05/19/21 05/19/21 08:30 08:45 09:00 09:15 Temp 98.1 97.9 97.9 97.9 Pulse 84 83 80 81 B/P (MAP) 126/60 (82) 125/59 (81) 123/58 (79) 122/58 (79) Pulse Ox 96 94 94 93 05/19/21 05/19/21 05/19/21 05/19/21 09:30 09:45 09:57 09:58 Temp 97.9 97.9 Pulse 80 76 77 77 Resp 26 37 B/P (MAP) 129/62 (84) 127/62 (83) Pulse Ox 92 91 91 91 O2 Delivery Mechanical Ventilator FiO2 100 100 05/19/21 05/19/21 05/19/21 05/19/21 10:00 10:15 10:30 10:45 Temp 97.9 98.1 98.1 98.2 Pulse 76 85 90 81 B/P (MAP) 124/62 (82) 133/64 (87) 133/63 (86) 125/60 (81) 126/62 (83) Pulse Ox 90 92 91 90 05/19/21 05/19/21 05/19/21 05/19/21 11:00 11:15 11:30 11:45 Temp 98.4 98.6 98.6 98.8 Pulse 81 82 82 75 B/P (MAP) 127/60 (82) 126/61 (82) 124/60 (81) 114/55 (74) Pulse Ox 90 90 89 91 05/19/21 05/19/21 05/19/21 05/19/21 12:00 12:00 12:15 12:24 Temp 99.0 99.1 Pulse 72 70 82 Resp 37 B/P (MAP) 111/48 (69) 102/50 (67) 107/52 (70) Pulse Ox 91 92 89 O2 Delivery Mechanical Ventilator FiO2 100 05/19/21 05/19/21 05/19/21 05/19/21 12:30 12:45 13:00 13:15 Temp 99.1 99.3 99.3 99.3 Pulse 68 68 66 66 B/P (MAP) 101/51 (68) 102/51 (68) 99/50 (66) 101/51 (68) Pulse Ox 93 94 95 96 05/19/21 05/19/21 05/19/21 05/19/21 13:30 13:45 14:00 14:15 Temp 99.5 99.5 99.5 99.5 Pulse 64 65 64 65 B/P (MAP) 100/50 (67) 100/51 (67) 97/46 (63) 100/52 (68) 102/51 (68) Pulse Ox 97 97 97 97 05/19/21 05/19/21 05/19/21 05/19/21 14:30 14:45 15:00 15:15 Temp 99.5 99.5 99.5 99.5 Pulse 65 65 66 64 B/P (MAP) 100/51 (67) 101/52 (68) 101/52 (68) 102/52 (69) Pulse Ox 96 96 96 97 05/19/21 05/19/21 05/19/21 05/19/21 15:20 15:30 15:45 16:00 Temp 99.5 99.5 Pulse 66 83 82 Resp 37 B/P (MAP) 127/65 (85) 121/61 (81) Pulse Ox 96 99 98 O2 Delivery Mechanical Ventilator FiO2 100 05/19/21 05/19/21 05/19/21 05/19/21 16:00 16:15 16:30 16:45 Temp 99.5 99.3 99.1 99.1 Pulse 86 93 90 97 B/P (MAP) 106/64 (78) 130/63 (85) 133/64 (87) 131/64 (86) 126/63 (84) Pulse Ox 97 96 94 96 05/19/21 05/19/21 05/19/21 05/19/21 16:50 17:00 17:15 17:17 Temp 99.0 99.0 Pulse 97 91 96 Resp 35 44 B/P (MAP) 125/60 (81) 130/64 (86) Pulse Ox 95 93 93 92 FiO2 100 05/19/21 05/19/21 05/19/21 05/19/21 17:30 17:45 18:00 18:07 Temp 99.0 99.0 99.0 Pulse 90 91 89 98 Resp 36 B/P (MAP) 125/62 (83) 132/67 (88) 107/60 (76) 127/63 (84) Pulse Ox 93 92 93 9 FiO2 100 05/19/21 05/19/21 05/19/21 05/19/21 18:15 18:30 18:45 20:00 Temp 99.0 99.0 99.1 Pulse 78 72 69 62 Resp 37 B/P (MAP) 111/56 (74) 107/55 (72) 103/54 (70) Pulse Ox 94 93 94 98 FiO2 100 05/19/21 05/19/21 05/19/21 05/19/21 20:00 20:13 20:15 20:15 Temp 99.1 99.3 Pulse 62 62 B/P (MAP) 95/50 (65) 99/52 (68) 99/53 (68) Pulse Ox 98 99 O2 Delivery Mechanical Ventilator FiO2 100 05/19/21 05/19/21 05/19/21 05/19/21 20:30 20:45 21:00 21:15 Temp 99.3 99.3 99.3 99.3 Pulse 62 62 61 60 B/P (MAP) 99/52 (68) 100/53 (69) 99/52 (68) 98/52 (67) Pulse Ox 98 99 99 99 05/19/21 05/19/21 05/19/21 05/19/21 21:30 21:45 22:00 22:04 Temp 99.3 99.3 99.3 Pulse 61 61 61 62 Resp 37 B/P (MAP) 97/51 (66) 97/51 (66) 91/51 (64) 97/51 (66) Pulse Ox 99 99 99 98 O2 Delivery Mechanical Ventilator FiO2 100 05/19/21 05/19/21 05/19/21 05/19/21 22:05 22:15 22:30 22:45 Temp 99.3 99.3 99.3 Pulse 61 60 61 61 Resp 36 B/P (MAP) 95/51 (66) 94/50 (65) 93/50 (64) Pulse Ox 99 98 99 99 FiO2 100 05/19/21 05/19/21 05/19/21 05/19/21 23:00 23:13 23:15 23:15 Temp 99.3 99.3 Pulse 61 61 60 Resp 35 B/P (MAP) 93/50 (64) 92/50 (64) Pulse Ox 99 100 100 O2 Delivery Mechanical Ventilator FiO2 100 05/19/21 05/19/21 05/20/21 05/20/21 23:30 23:45 00:00 00:01 Temp 99.3 99.3 99.3 Pulse 61 60 60 60 Resp 35 B/P (MAP) 93/50 (64) 91/49 (63) 88/46 (60) 91/50 (64) Pulse Ox 100 100 100 100 FiO2 100 05/20/21 05/20/21 05/20/21 05/20/21 00:15 00:30 00:45 01:00 Temp 99.3 99.5 99.5 99.5 Pulse 60 60 61 62 B/P (MAP) 89/49 (62) 90/49 (63) 89/49 (62) 87/48 (61) Pulse Ox 100 100 100 99 05/20/21 05/20/21 05/20/21 05/20/21 01:15 01:30 01:45 02:00 Temp 99.5 99.5 99.3 99.1 Pulse 67 70 71 70 B/P (MAP) 95/51 (66) 98/52 (67) 100/52 (68) 109/57 (74) 100/53 (69) Pulse Ox 99 98 98 97 8/2405/20/21 05/20/21 05/20/21 02:15 02:30 02:45 03:00 Temp 99.1 99.0 99.0 98.8 Pulse 67 65 65 65 B/P (MAP) 96/51 (66) 94/49 (64) 96/51 (66) 96/52 (67) Pulse Ox 97 96 95 95 05/20/21 05/20/21 05/20/21 05/20/21 03:15 03:30 03:45 04:00 Temp 98.6 98.6 98.4 Pulse 64 65 64 64 Resp 36 B/P (MAP) 95/52 (66) 93/50 (64) 96/53 (67) Pulse Ox 96 95 97 95 FiO2 100 05/20/21 05/20/21 05/20/21 05/20/21 04:00 04:15 04:30 04:45 Temp 98.2 98.2 98.4 98.4 Pulse 64 64 64 64 B/P (MAP) 109/55 (73) 94/51 (65) 94/51 (65) 94/51 (65) 94/51 (65) Pulse Ox 97 97 97 96 05/20/21 05/20/21 05/20/21 05/20/21 05:00 05:00 05:00 05:15 Temp 98.4 98.2 Pulse 82 65 77 Resp 35 B/P (MAP) 155/60 (91) 110/57 (74) Pulse Ox 98 92 97 O2 Delivery Mechanical Ventilator FiO2 100 05/20/21 05/20/21 05/20/21 05/20/21 05:30 05:43 05:45 06:00 Temp 98.2 98.2 98.2 Pulse 78 75 79 77 Resp 35 B/P (MAP) 111/58 (75) 112/57 (75) 117/66 (83) 111/57 (75) Pulse Ox 96 96 95 94 FiO2 100 05/20/21 05/20/21 05/20/21 05/20/21 06:15 06:30 06:45 07:00 Temp 98.2 98.2 98.2 98.2 Pulse 78 81 71 74 B/P (MAP) 112/56 (74) 114/58 (76) 109/54 (72) 110/55 (73) Pulse Ox 93 92 91 92 8/24/21 8/24/21 8/24/21 8/24/21 07:15 07:30 07:45 08:00 Temp 98.2 98.4 98.4 Pulse 73 81 80 B/P (MAP) 105/54 (71) 119/61 (80) 117/58 (77) Pulse Ox 90 97 97 O2 Delivery Mechanical Ventilator 05/20/21 05/20/21 05/20/21 05/20/21 08:00 08:15 08:30 08:31 Temp 98.4 98.4 98.6 Pulse 82 79 70 74 Resp 35 B/P (MAP) 121/67 (85) 113/57 (75) 104/52 (69) 120/59 (79) Pulse Ox 97 97 97 97 O2 Delivery Mechanical Ventilator FiO2 100 05/20/21 05/20/21 05/20/21 05/20/21 08:32 08:32 08:45 09:00 Temp 98.6 98.6 Pulse 74 87 78 Resp 35 B/P (MAP) 124/60 (81) 120/63 (82) Pulse Ox 97 90 95 FiO2 90 100 05/20/21 05/20/21 05/20/21 05/20/21 09:15 09:30 09:45 10:00 Temp 98.6 98.6 98.8 99.0 Pulse 73 70 76 80 B/P (MAP) 112/61 (78) 110/61 (77) 117/63 (81) 119/64 (82) Pulse Ox 92 93 92 91 05/20/21 05/20/21 05/20/21 05/20/21 10:02 10:15 10:30 10:45 Temp 99.0 99.0 99.0 99.0 Pulse 81 90 80 98 B/P (MAP) 121/65 (83) 131/69 (89) 119/64 (82) 138/71 (93) Pulse Ox 90 91 90 90 05/20/21 05/20/21 05/20/21 05/20/21 11:00 11:15 11:30 11:33 Temp 99.0 99.0 99.0 Pulse 103 101 97 98 Resp 38 B/P (MAP) 139/70 (93) 139/70 (93) 132/68 (89) Pulse Ox 90 91 90 91 FiO2 90 8/24/21 8/24/21 8/24/21 8/24/21 11:41 11:45 12:00 12:00 Temp 99.1 99.1 Pulse 94 90 B/P (MAP) 122/64 (83) 120/62 (81) Pulse Ox 87 89 O2 Delivery Mechanical Ventilator FiO2 80 05/20/21 05/20/21 05/20/21 05/20/21 12:02 12:15 12:30 12:45 Temp 99.1 99.1 99.3 Pulse 91 87 81 B/P (MAP) 119/62 (81) 114/59 (77) 110/58 (75) Pulse Ox 87 86 87 FiO2 90 05/20/21 05/20/21 05/20/21 05/20/21 12:45 13:00 13:15 13:30 Temp 99.3 99.5 99.5 99.7 Pulse 76 73 70 69 B/P (MAP) 104/57 (73) 95/53 (67) 93/54 (67) 93/53 (66) Pulse Ox 88 89 91 93 05/20/21 05/20/21 05/20/21 05/20/21 13:45 14:00 14:02 14:10 Temp 99.7 99.7 99.7 Pulse 69 68 69 68 Resp 38 B/P (MAP) 93/53 (66) 94/53 (67) 95/54 (68) Pulse Ox 95 95 96 95 FiO2 90 05/20/21 05/20/21 05/20/21 05/20/21 14:15 14:30 14:45 15:00 Temp 99.9 99.7 99.5 99.5 Pulse 90 69 71 68 B/P (MAP) 117/69 (85) 105/58 (74) 110/60 (77) 107/59 (75) Pulse Ox 95 97 97 97 05/20/21 05/20/21 05/20/21 05/20/21 15:15 15:30 15:45 16:00 Temp 99.5 99.5 99.5 99.3 Pulse 74 70 67 65 B/P (MAP) 115/63 (80) 106/57 (73) 106/58 (74) 102/56 (71) Pulse Ox 96 94 94 93 05/20/21 05/20/21 05/20/21 05/20/21 16:02 16:07 16:15 16:30 Temp 99.3 99.3 99.3 Pulse 66 65 64 B/P (MAP) 102/56 (71) 103/57 (72) 105/58 (74) Pulse Ox 93 93 93 O2 Delivery Mechanical Ventilator 05/20/21 05/20/21 05/20/21 05/20/21 16:45 17:00 17:00 17:15 Temp 99.1 99.1 99.1 Pulse 64 64 65 63 Resp 38 B/P (MAP) 104/58 (73) 105/59 (74) 106/59 (75) Pulse Ox 94 95 95 96 FiO2 90 05/20/21 05/20/21 05/20/21 05/20/21 17:30 17:45 18:00 18:02 Temp 99.1 99.1 99.0 99.0 Pulse 64 63 64 60 B/P (MAP) 103/58 (73) 108/60 (76) 107/59 (75) 108/59 (75) Pulse Ox 96 96 96 96 05/20/21 05/20/21 05/20/21 05/20/21 18:15 18:30 19:00 19:15 Temp 99.0 99.0 98.8 98.8 Pulse 63 61 63 64 Resp 26 B/P (MAP) 108/60 (76) 109/59 (76) 110/60 (77) 111/60 (77) Pulse Ox 96 96 95 94 05/20/21 05/20/21 05/20/21 05/20/21 19:30 19:34 19:45 19:50 Temp 98.8 98.6 Pulse 67 63 64 Resp 36 26 B/P (MAP) 119/64 (82) 113/61 (78) Pulse Ox 97 97 95 O2 Delivery Mechanical Ventilator FiO2 90 05/20/21 05/20/21 05/20/21 05/20/21 19:50 20:00 20:02 20:15 Temp 98.6 98.6 98.6 Pulse 56 64 64 64 Resp 26 B/P (MAP) 114/61 (78) 114/61 (78) 110/60 (77) Pulse Ox 97 94 94 93 FiO2 100 8/2405/20/21 05/20/21 05/20/21 20:30 20:45 21:00 21:00 Temp 98.6 98.4 98.4 Pulse 62 64 61 65 Resp 26 37 B/P (MAP) 111/60 (77) 114/61 (78) 112/61 (78) Pulse Ox 93 92 96 91 O2 Delivery Mechanical Ventilator FiO2 90 05/20/21 05/20/21 05/20/21 05/20/21 21:15 21:30 21:45 22:00 Temp 98.4 98.4 98.4 Pulse 62 63 63 62 Resp 26 B/P (MAP) 112/60 (77) 113/60 (77) 112/61 (78) 111/61 (78) Pulse Ox 93 94 94 94 05/20/21 05/20/21 05/21/21 05/21/21 22:02 22:12 00:12 00:12 Temp 98.4 Pulse 62 61 58 Resp 37 26 B/P (MAP) 110/60 (77) Pulse Ox 95 95 98 O2 Delivery Mechanical Ventilator FiO2 90 100 05/21/21 05/21/21 05/21/21 05/21/21 01:30 03:36 03:56 03:56 Pulse 67 55 55 Resp 37 38 35 Pulse Ox 95 97 97 O2 Delivery Mechanical Ventilator FiO2 90 90 100 05/21/21 05/21/21 05/21/21 05/21/21 05:34 06:30 06:45 07:00 Temp 96.8 97.0 97.2 Pulse 100 82 75 74 Resp 37 B/P (MAP) 123/61 (81) 119/59 (79) 111/56 (74) Pulse Ox 94 89 90 90 FiO2 90 05/21/21 05/21/21 05/21/21 05/21/21 07:15 07:30 07:45 07:47 Temp 97.2 97.3 97.3 97.3 Pulse 82 82 76 74 B/P (MAP) 126/63 (84) 123/63 (83) 122/57 (78) 119/57 (77) Pulse Ox 91 92 87 90 05/21/21 05/21/21 05/21/21 05/21/21 07:54 07:54 08:00 08:00 Temp 97.5 Pulse 70 70 77 Resp 38 38 B/P (MAP) 129/61 (83) Pulse Ox 91 91 94 O2 Delivery Mechanical Ventilator Mechanical Ventilator FiO2 90 90 05/21/21 05/21/21 05/21/21 05/21/21 08:00 08:02 08:15 08:30 Temp 97.5 97.5 97.5 Pulse 72 74 76 67 Resp 35 B/P (MAP) 117/55 (75) 111/52 (71) 93/46 (62) Pulse Ox 96 94 96 94 FiO2 100 05/21/21 05/21/21 05/21/21 05/21/21 08:45 09:00 09:15 09:30 Temp 97.9 98.1 98.2 98.4 Pulse 64 63 61 63 B/P (MAP) 86/44 (58) 84/44 (57) 80/42 (55) 84/43 (57) Pulse Ox 94 94 93 94 05/21/21 05/21/21 05/21/21 05/21/21 09:45 10:00 10:02 10:15 Temp 98.4 98.4 98.4 98.4 Pulse 63 80 79 80 B/P (MAP) 88/44 (59) 135/66 (89) 140/69 (92) 121/57 (78) Pulse Ox 94 97 99 99 05/21/21 05/21/21 05/21/21 05/21/21 10:30 10:45 11:00 11:09 Temp 98.4 98.4 98.4 Pulse 86 78 86 85 Resp 38 B/P (MAP) 126/59 (81) 122/57 (78) 128/59 (82) Pulse Ox 98 99 95 96 FiO2 90 05/21/21 05/21/21 05/21/21 05/21/21 11:15 11:30 11:45 12:00 Temp 98.4 98.4 98.4 Pulse 87 83 93 88 Resp 35 B/P (MAP) 131/58 (82) 123/55 (77) 134/60 (84) Pulse Ox 96 95 93 92 FiO2 100 05/21/21 05/21/21 05/21/21 05/21/21 12:00 12:00 12:02 12:15 Temp 98.4 98.4 98.6 Pulse 82 86 90 B/P (MAP) 125/58 (80) 122/56 (78) 125/58 (80) Pulse Ox 92 91 91 O2 Delivery Mechanical Ventilator 05/21/21 05/21/21 05/21/21 05/21/21 12:30 12:45 13:00 13:15 Temp 98.6 98.8 98.8 99.0 Pulse 84 90 86 90 B/P (MAP) 119/54 (75) 127/58 (81) 125/56 (79) 121/56 (77) Pulse Ox 91 90 91 92 05/21/21 05/21/21 05/21/21 05/21/21 13:30 13:45 14:00 14:02 Temp 99.1 99.1 99.3 99.5 Pulse 87 82 84 84 B/P (MAP) 117/56 (76) 113/51 (71) 116/54 (74) 109/52 (71) Pulse Ox 92 92 93 93 05/21/21 05/21/21 05/21/21 05/21/21 14:15 14:30 14:41 14:45 Temp 99.5 99.7 99.9 Pulse 79 66 75 90 Resp 37 B/P (MAP) 116/54 (74) 94/44 (61) 112/57 (75) Pulse Ox 94 95 94 93 FiO2 90 05/21/21 05/21/21 05/21/21 05/21/21 15:00 15:15 15:30 15:45 Temp 99.9 100.0 100.2 100.2 Pulse 79 88 86 83 B/P (MAP) 110/51 (70) 123/56 (78) 121/54 (76) 114/50 (71) Pulse Ox 97 96 96 95 05/21/21 05/21/21 05/21/21 05/21/21 16:00 16:00 16:02 16:15 Temp 100.4 100.4 100.4 Pulse 81 83 91 B/P (MAP) 118/53 (74) 119/55 (76) 133/60 (84) Pulse Ox 94 95 94 O2 Delivery Mechanical Ventilator 05/21/21 05/21/21 05/21/21 05/21/21 16:30 16:45 16:46 17:00 Temp 100.6 100.6 100.8 Pulse 91 87 79 86 Resp 35 B/P (MAP) 126/56 (79) 125/56 (79) 114/51 (72) Pulse Ox 96 92 93 93 FiO2 100 05/21/21 05/21/21 05/21/21 05/21/21 17:15 17:20 17:30 17:45 Temp 100.8 100.9 100.9 Pulse 96 102 96 98 Resp 38 B/P (MAP) 133/61 (85) 139/60 (86) 133/59 (83) Pulse Ox 94 93 95 94 FiO2 90 05/21/21 05/21/21 05/21/21 05/21/21 18:00 18:02 18:15 19:00 Temp 101.1 101.1 101.1 101.3 Pulse 93 89 94 98 B/P (MAP) 119/54 (75) 130/60 (83) 123/54 (77) 130/58 (82) Pulse Ox 94 95 95 93 05/21/21 05/21/21 05/21/21 05/21/21 19:15 19:30 19:45 19:45 Temp 101.5 101.5 101.5 Pulse 88 98 102 B/P (MAP) 122/54 (76) 147/70 (95) 129/62 (84) Pulse Ox 92 95 94 O2 Delivery Mechanical Ventilator 05/21/21 05/21/21 05/21/21 05/21/21 20:00 20:02 20:15 20:30 Temp 101.5 101.5 101.7 101.7 Pulse 85 86 82 84 B/P (MAP) 109/50 (69) 110/50 (70) 121/51 (74) 115/50 (71) Pulse Ox 93 93 96 95 05/21/21 05/21/21 05/21/21 05/21/21 20:34 20:39 20:45 21:00 Temp 101.8 102.0 Pulse 83 83 85 83 Resp 36 36 B/P (MAP) 114/50 (71) 125/53 (77) Pulse Ox 94 94 93 95 O2 Delivery Mechanical Ventilator FiO2 90 94 05/21/21 05/21/21 05/21/21 05/21/21 21:15 21:30 21:45 22:00 Temp 102.0 102.0 101.8 101.8 Pulse 94 97 85 115 B/P (MAP) 134/58 (83) 141/59 (86) 134/54 (80) 143/62 (89) Pulse Ox 95 96 94 92 05/21/21 05/21/21 05/21/21 05/21/21 22:02 22:15 22:30 22:39 Temp 101.7 101.7 101.1 Pulse 111 121 95 Resp 36 B/P (MAP) 144/63 (90) 102/62 (75) 125/53 (77) Pulse Ox 93 88 93 95 FiO2 90 05/21/21 05/21/21 05/21/21 05/21/21 22:42 22:45 23:00 23:15 Temp 101.1 100.9 100.8 100.6 Pulse 116 113 93 88 B/P (MAP) 122/62 (82) 117/58 (77) 104/50 (68) 101/48 (65) 107/49 (68) Pulse Ox 94 95 90 05/21/21 05/21/21 05/22/21 05/22/21 23:30 23:45 00:00 00:02 Temp 100.6 100.6 100.4 100.4 Pulse 114 91 81 80 B/P (MAP) 125/59 (81) 121/57 (78) 99/48 (65) 100/48 (65) Pulse Ox 83 87 84 85 05/22/21 05/22/21 05/22/21 05/22/21 00:15 00:30 00:32 00:45 Temp 100.6 100.6 100.6 Pulse 78 82 82 84 Resp 40 B/P (MAP) 131/80 (97) 144/93 (110) 148/97 (114) Pulse Ox 83 87 85 FiO2 90 05/22/21 05/22/21 05/22/21 05/22/21 01:00 01:15 01:30 01:45 Temp 100.6 100.6 100.6 100.6 Pulse 80 79 77 77 B/P (MAP) 136/87 (103) 135/87 (103) 133/87 (102) 134/88 (103) Pulse Ox 91 91 91 92 05/22/21 05/22/21 05/22/21 05/22/21 02:00 02:02 02:15 02:30 Temp 100.8 100.8 100.8 100.6 Pulse 74 76 75 93 B/P (MAP) 131/86 (101) 131/87 (102) 97/52 (67) 119/59 (79) Pulse Ox 92 92 92 90 05/22/21 05/22/21 05/22/21 05/22/21 02:38 02:45 02:55 03:00 Temp 100.4 100.2 Pulse 85 79 84 Resp 35 B/P (MAP) 121/55 (77) 126/57 (80) Pulse Ox 90 93 90 O2 Delivery Mechanical Ventilator FiO2 100 05/22/21 05/22/21 05/22/21 05/22/21 03:04 03:15 03:30 03:45 Temp 100.2 100.0 99.9 Pulse 90 91 85 90 Resp 35 B/P (MAP) 133/61 (85) 121/55 (77) 136/63 (87) Pulse Ox 92 88 87 87 FiO2 90 05/22/21 05/22/21 05/22/21 05/22/21 04:00 04:15 04:30 04:45 Temp 99.7 99.5 99.5 99.3 Pulse 95 81 90 81 B/P (MAP) 141/66 (91) 132/60 (84) 137/64 (88) 126/58 (80) Pulse Ox 87 87 87 87 05/22/21 05/22/21 05/22/21 05/22/21 05:00 05:15 05:30 05:45 Temp 99.1 99.1 99.1 99.1 Pulse 78 77 71 68 B/P (MAP) 116/55 (75) 110/54 (72) 103/50 (67) 107/53 (71) Pulse Ox 86 85 89 86 05/22/21 05/22/21 05/22/21 05/22/21 06:00 06:00 06:02 06:15 Temp 99.0 99.0 99.0 Pulse 77 70 72 71 Resp 35 B/P (MAP) 102/53 (69) 102/53 (69) 100/52 (68) Pulse Ox 89 87 88 88 FiO2 90 05/22/21 05/22/21 05/22/21 05/22/21 06:30 06:45 07:00 07:10 Temp 99.0 99.0 98.8 Pulse 73 74 73 B/P (MAP) 102/54 (70) 103/53 (70) 103/54 (70) Pulse Ox 89 90 90 O2 Delivery Mechanical Ventilator 05/22/21 05/22/21 05/22/21 05/22/21 07:10 07:15 07:30 07:45 Temp 98.8 98.8 98.6 Pulse 72 78 65 B/P (MAP) 99/52 (68) 122/62 (82) 113/49 (70) Pulse Ox 91 92 91 FiO2 100 05/22/21 05/22/21 05/22/21 05/22/21 08:00 08:02 08:15 08:30 Temp 98.6 98.6 98.6 98.6 Pulse 75 73 78 Resp 35 B/P (MAP) 111/52 (71) 112/51 (71) 115/53 (73) 115/52 (73) Pulse Ox 90 90 88 86 05/22/21 05/22/21 05/22/21 05/22/21 08:45 09:00 09:11 09:11 Temp 98.6 98.4 Pulse 65 78 97 97 Resp 35 35 B/P (MAP) 116/49 (71) 130/56 (80) Pulse Ox 85 88 84 84 O2 Delivery Mechanical Ventilator FiO2 90 90 05/22/21 05/22/21 05/22/21 05/22/21 09:15 09:30 09:30 09:45 Temp 98.4 98.6 98.6 98.8 Pulse 92 75 75 82 Resp 35 B/P (MAP) 120/57 (78) 114/53 (73) 114/53 (73) 138/61 (86) Pulse Ox 87 83 83 86 05/22/21 05/22/21 05/22/21 05/22/21 09:45 10:00 10:00 10:02 Temp 98.8 99.0 99.0 99.0 Pulse 82 96 96 81 B/P (MAP) 138/61 (86) 144/64 (90) 144/64 (90) 140/61 (87) Pulse Ox 86 85 85 85 05/22/21 05/22/21 05/22/21 05/22/21 10:02 10:15 10:15 10:18 Temp 99.0 99.1 99.1 Pulse 81 78 78 85 Resp 35 35 B/P (MAP) 140/61 (87) 135/58 (83) 135/58 (83) Pulse Ox 85 86 86 87 FiO2 100 05/22/21 05/22/21 05/22/21 05/22/21 10:30 10:30 10:45 10:45 Temp 99.3 99.3 99.5 99.5 Pulse 81 81 91 91 B/P (MAP) 130/57 (81) 130/57 (81) 139/63 (88) 139/63 (88) Pulse Ox 86 86 88 88 05/22/21 05/22/21 05/22/21 05/22/21 11:00 11:00 11:15 11:15 Temp 99.9 99.9 100.2 100.2 Pulse 88 88 92 92 B/P (MAP) 130/57 (81) 130/57 (81) 130/56 (80) 130/56 (80) Pulse Ox 88 88 89 89 05/22/21 05/22/21 05/22/21 05/22/21 11:30 11:30 11:43 11:45 Temp 100.4 100.4 100.6 Pulse 88 88 91 88 Resp 35 35 B/P (MAP) 125/54 (77) 125/54 (77) 119/52 (74) Pulse Ox 87 87 84 85 FiO2 100 05/22/21 05/22/21 05/22/21 05/22/21 12:00 12:02 12:05 12:05 Temp 100.8 100.8 Pulse 88 86 B/P (MAP) 116/51 (72) 115/50 (71) Pulse Ox 84 83 O2 Delivery Mechanical Ventilator FiO2 100 05/22/21 05/22/21 05/22/21 05/22/21 12:15 12:30 12:33 12:45 Temp 100.9 100.9 100.8 Pulse 98 86 82 84 Resp 38 B/P (MAP) 88/41 (57) 107/49 (68) 101/47 (65) Pulse Ox 82 84 85 85 FiO2 100 05/22/21 05/22/21 05/22/21 05/22/21 13:00 13:15 13:30 13:45 Temp 100.6 100.4 100.2 100.0 Pulse 81 79 80 76 B/P (MAP) 92/43 (59) 89/43 (58) 88/42 (57) 85/42 (56) Pulse Ox 85 84 83 88 05/22/21 05/22/21 05/22/21 05/22/21 14:00 14:02 14:15 14:30 Temp 100.0 100.0 100.0 100.0 Pulse 70 76 64 64 Resp 25 B/P (MAP) 85/41 (56) 89/44 (59) 101/50 (67) 96/46 (63) Pulse Ox 86 85 86 87 05/22/21 05/22/21 05/22/21 05/22/21 14:45 14:50 15:00 15:15 Temp 100.0 100.0 99.9 Pulse 68 70 69 82 Resp 38 25 B/P (MAP) 98/49 (65) 87/45 (59) 109/54 (72) Pulse Ox 88 89 87 92 FiO2 100 05/22/21 05/22/21 05/22/21 05/22/21 15:30 15:45 16:00 16:02 Temp 99.9 99.9 99.9 99.9 Pulse 64 68 69 69 B/P (MAP) 107/52 (70) 100/50 (67) 117/57 (77) 115/56 (75) Pulse Ox 92 91 90 90 05/22/21 05/22/21 05/22/21 05/22/21 16:15 16:15 16:15 16:30 Temp 99.9 99.9 Pulse 68 67 B/P (MAP) 113/55 (74) 124/57 (79) Pulse Ox 91 93 O2 Delivery Mechanical Ventilator FiO2 100 05/22/21 05/22/21 05/22/21 05/22/21 16:45 17:00 17:08 17:15 Temp 99.9 99.9 99.9 Pulse 70 67 70 65 Resp 25 36 B/P (MAP) 118/56 (76) 116/54 (74) 133/68 (89) Pulse Ox 93 93 93 95 FiO2 100 05/22/21 05/22/21 05/22/21 05/22/21 17:30 17:45 18:00 18:01 Temp 100.0 100.2 100.0 100.0 Pulse 77 63 67 72 B/P (MAP) 133/62 (85) 128/59 (82) 136/64 (88) 134/61 (85) Pulse Ox 94 92 91 90 05/22/21 05/22/21 05/22/21 05/22/21 18:15 18:30 18:45 19:00 Temp 100.0 99.9 99.9 99.8 Pulse 75 75 72 72 B/P (MAP) 124/57 (79) 133/61 (85) 127/60 (82) 131/60 (83) Pulse Ox 89 87 89 90 05/22/21 05/22/21 05/22/21 05/22/21 19:15 19:30 19:45 19:50 Temp 99.8 99.5 99.5 Pulse 68 71 70 B/P (MAP) 109/52 (71) 137/64 (88) 129/62 (84) Pulse Ox 90 91 92 O2 Delivery Mechanical Ventilator 05/22/21 05/22/21 05/22/21 05/22/21 20:00 20:00 20:01 20:15 Temp 99.5 99.5 99.5 Pulse 68 65 68 62 Resp 36 B/P (MAP) 133/63 (86) 133/63 (86) 131/62 (85) Pulse Ox 92 92 91 91 FiO2 100 05/22/21 05/22/21 05/22/21 05/22/21 20:30 20:45 20:46 21:00 Temp 99.3 99.3 99.2 Pulse 62 67 66 61 Resp 24 B/P (MAP) 135/63 (87) 134/62 (86) 130/57 (81) Pulse Ox 91 91 91 91 FiO2 100 05/22/21 05/22/21 05/22/21 05/22/21 21:03 21:15 21:30 21:45 Temp 99.2 99.1 99.1 Pulse 66 72 64 63 Resp 24 B/P (MAP) 139/65 (89) 124/54 (77) 139/65 (89) Pulse Ox 91 88 93 94 O2 Delivery Mechanical Ventilator 05/22/21 05/22/21 05/22/21 05/22/21 22:00 22:01 22:04 22:15 Temp 98.9 98.9 98.9 Pulse 56 64 56 66 Resp 38 B/P (MAP) 130/59 (82) 136/62 (86) 129/60 (83) Pulse Ox 91 91 90 89 FiO2 100 05/22/21 05/22/21 05/22/21 05/22/21 22:30 22:45 23:00 23:15 Temp 98.7 98.7 98.6 98.4 Pulse 64 66 61 64 B/P (MAP) 142/65 (90) 126/59 (81) 139/64 (89) 143/66 (91) Pulse Ox 91 87 89 90 05/22/21 05/22/21 05/22/21 05/22/21 23:30 23:35 23:35 23:45 Temp 98.4 98.4 Pulse 57 61 58 Resp 25 B/P (MAP) 142/66 (91) 139/66 (90) Pulse Ox 90 91 91 O2 Delivery Mechanical Ventilator FiO2 100 05/23/21 05/23/21 05/23/21 05/23/21 00:00 00:01 00:08 00:15 Temp 98.4 98.4 98.4 Pulse 57 58 55 54 Resp 38 B/P (MAP) 141/65 (90) 139/65 (89) 136/60 (85) Pulse Ox 91 92 90 91 FiO2 100 05/23/21 05/23/21 05/23/21 05/23/21 00:30 00:45 01:00 01:15 Temp 98.4 98.4 98.4 98.4 Pulse 61 58 52 53 B/P (MAP) 137/64 (88) 135/63 (87) 138/63 (88) 138/63 (88) Pulse Ox 93 93 92 93 05/23/21 05/23/21 05/23/21 05/23/21 01:30 01:45 02:00 02:01 Temp 98.4 98.4 98.4 98.4 Pulse 53 53 51 51 B/P (MAP) 137/62 (87) 141/64 (89) 137/62 (87) 140/64 (89) Pulse Ox 93 93 93 93 05/23/21 05/23/21 05/23/21 05/23/21 02:07 02:15 02:30 02:45 Temp 98.4 98.4 98.4 Pulse 52 55 47 55 Resp 43 B/P (MAP) 142/66 (91) 137/61 (86) 142/67 (92) Pulse Ox 93 92 94 93 FiO2 100 05/23/21 05/23/21 05/23/21 05/23/21 03:00 03:15 03:30 03:39 Temp 98.4 98.6 98.6 Pulse 56 59 58 60 Resp 28 B/P (MAP) 137/63 (87) 142/65 (90) 135/61 (85) Pulse Ox 92 91 91 92 FiO2 100 05/23/21 05/23/21 05/23/21 05/23/21 03:39 03:45 04:00 04:01 Temp 98.4 98.4 98.4 Pulse 57 58 58 B/P (MAP) 136/61 (86) 136/60 (85) 139/64 (89) Pulse Ox 91 92 92 O2 Delivery Mechanical Ventilator 05/23/21 05/23/21 05/23/21 05/23/21 04:09 04:15 04:30 04:45 Temp 98.4 98.4 98.4 Pulse 58 61 59 59 Resp 42 B/P (MAP) 140/63 (88) 132/60 (84) 136/62 (86) Pulse Ox 92 92 92 92 FiO2 100 05/23/21 05/23/21 05/23/21 05/23/21 05:00 05:15 05:30 05:45 Temp 98.4 98.2 98.2 98.2 Pulse 58 52 61 56 B/P (MAP) 139/64 (89) 131/57 (81) 141/66 (91) 133/59 (83) Pulse Ox 93 91 92 93 05/23/21 05/23/21 05/23/21 05/23/21 06:00 06:01 06:15 06:30 Temp 98.2 98.2 98.2 98.2 Pulse 54 56 58 61 B/P (MAP) 133/58 (83) 133/61 (85) 140/64 (89) 140/63 (88) Pulse Ox 91 91 93 93 05/23/21 05/23/21 05/23/21 05/23/21 07:23 07:25 07:25 08:15 Pulse 66 58 Resp 44 35 42 Pulse Ox 93 91 92 O2 Delivery Mechanical Ventilator FiO2 100 100 100 05/23/21 05/23/21 08:15 09:40 Pulse 70 Resp 37 Pulse Ox 87 O2 Delivery Mechanical Ventilator FiO2 100 Intake and Output 05/23/21 06:00 Intake Total 3094 ml Output Total 2225 ml Balance 869 ml VTE VTE Risk Total Score: 5 VTE Risk Score VTE Risk: Score 0-1 = Low Risk (Aggressive mobilization; early ambulation; no VTE prophylaxis required) Score 2: Moderate Risk (Intermittent/Pneumatic Compression Device OR Lovenox/Heparin/Coumadin) Score 3-4: High Risk (Intermittent/Pneumatic Compression Device AND Lovenox/Heparin/Coumadin) Score > or =5: Highest Risk (Intermittent/Pneumatic Compression Device AND Lovenox/Heparin/Coumadin) Antico:Hep/LMWH/Coum/Xarelto: Yes Mechanical device ordered: Yes VTE VTE Present on Admission: No Currently receiving anticoagul: Yes VTE Risk Total Score: 5 Antico:Hep/LMWH/Coum/Xarelto: Yes Mechanical device ordered: Yes Assessment/Plan Assessment/Plan Assessment/Plan Plan Continue full ventilator support, PRBC,. Continue IV antibiotics cefepime and vancomycin as per ID Patient was evaluated by anesthesia and surgery, patient is unstable for OR/tracheostomy. Steroids Nutrition, TPN as per nutrition/dietitian GI and DVT prophylaxis Patient presenting with potentially life-threatening condition, critical care time spent examining the patient, reviewing labs, images, discussing the case with [employer], respiratory therapist, 50 minutes. Plan 35 yo Female with hypoxemic respiratory failure/ARDS - COVID-19 infection BIPAP/therapeutic protocol completed ultimately requiring intubation 05/06 no significant improvement noted chart review indicated patient considered for transfer to tertiary center/ECMO but no beds available in [facility] or multiple neighboring states ongoing assessment for bed availability remains on high FI02/PEEP with little to no improvement Chart reviewed too unstable for anticipated trach placement today steroids restarted with resultant hyperglycemia unclear if insulin in TPN - PMHx includes but is not limited to: obesity (BMI 34) Qtts: Fentanyl (300) Precedex 0.2 Versed (10) Levophed currently off Chart and additional data reviewed: 7.265/69/69/91 on 100% PEEP 18 CXR 05/23 minimal to no improvement noted; unchanged Assessment/Plan Severe hypoxemia/ARDS from COVID-19 infection some small measure of improvement noted in oxygenation prior lost requiring FI02 100% PEEP 18 to maintain even adequate oxygenation and ventilation would continue to have a low threshold to use paralytic ; may need to consider proning patient again remains on TPN - bowel sounds remain hypoactive and no BM reported since 05/11 Dulcolax suppository ordered ISS for hyperglycemia and TPN to be adjusted NGT remains on ILWS with little output calls to tertiary centers made daily by report no bed available Little to no progress to this point prognosis remains guarded bedside provider updating family DVT and GI prophylaxis Bedside rounds completed with nurse and bedside RT - All issues addressed at this time Patient seen through remote audiovisual assessment through HIPPA compliant technology Cumulative non-procedural critical care time spent in directed patient care 60 minutes ODILIA SMITH DO May 23, 2021 11:46
[2021-05-23] MEDS ORDERED: BISAC-EVAC RC PRN (12:00)
[2021-05-23] MEDS ORDERED: HUMULIN R ONE (12:13)
[2021-05-23] MEDS: HUMULIN R SQ SCH ×3 (12:14→21:20)
--- NOTE | 2021-05-23 13:15 | NUR ---
INCREASED PRECEDEX BY 0.2 MCG/KG/HR EVERY 15 MINUTES TO 1.5MCG/KG/HR ORDERED. HR STILL 100s PATIENT FIGHTING THE VENT. VECURONIUM ADMINISTERED ORDERED.
--- NOTE | 2021-05-23 13:39 | NUR ---
CALLED [facility] [place] FOR UPDATE ON PATIENT STATUS AND REQUEST TO STAY ON THE WAIT LIST. STATE. THEY ARE STILL ON DIVERSION AT THIS TIME.
[2021-05-23] MEDS: VERSED IV SCH (13:49)
--- NOTE | 2021-05-23 14:29 | DIET.OP ---
Nutrition Asmt/Malnutrit 2-17 Actual Date of Review: May 23, 2021 Nutritional Screening: Other (LOS) Diagnosis: covid pneumonia Pertinent Medical Hx/Surgical: none Subjective Information: f/u pt remains intubated. TPN tolerated at 85 ml/hr . Lipids being given q48h . Pt continues to be proned but is tolerating more supine position Current Diet Order/Nutrition S: NPO Pertinent Meds Current Medications Medications (Trade) Dose Ordered Sig/Davon PRN Reason Start Time Stop Time Status Last Admin Bisacodyl (Bisac-Evac) 10 mg DAILY PRN CONSTIPATION 05/23/21 12:00 06/22/21 11:59 Fat Emulsion Intravenous 250 ml @ 15 mls/hr Q2D 05/20/21 17:00 06/19/21 16:59 05/22/21 17:00 Insulin Human Regular (Humulin R) ACHS 05/23/21 17:30 06/22/21 17:29 05/23/21 12:14 Methylprednisolone Sodium Succinate (Solu-Medrol) 40 mg Q8HR 05/22/21 10:30 06/21/21 10:29 05/23/21 14:00 Pertinent Labs Laboratory Tests Test 05/21/21 16:14 05/22/21 04:37 05/22/21 05:30 05/22/21 11:02 Bedside Glucose 181 169 White Blood Count 14.0 10^3/uL Red Blood Count 2.93 10^6/uL Hemoglobin 8.7 g/dL Hematocrit 28.6 % Mean Corpuscular Volume 97.6 fL Mean Corpuscular Hemoglobin 29.7 pg Mean Corpuscular Hemoglobin Concent 30.4 g/dL Red Cell Distribution Width 15.5 % Platelet Count 280 10^3/uL Mean Platelet Volume 10.4 fL Neutrophils (%) (Auto) 83.8 % Lymphocytes (%) (Auto) 10.8 % Monocytes (%) (Auto) 2.8 % Neutrophils # (Auto) 11.8 10^3/uL Lymphocytes # (Auto) 1.52 10^3/uL1 Monocytes # (Auto) 0.4 10^3/uL Absolute Immature Granulocyte (auto 0.94 10^3 u/L Absolute Eosinophils (auto) 0.4 10^3/uL Immature Granulocytes % 6.70 % Eosinophils % 2.5 % Basophils % 0.1 % Basophils # 0.0 10^3/uL Sodium Level 145 mmol/L Potassium Level 3.6 mmol/L Chloride Level 107.0 mmol/L Carbon Dioxide Level 31.1 mmol/L Anion Gap 10.5 Blood Urea Nitrogen 31 mg/dL Creatinine 0.60 mg/dL Estimated GFR () 136.9 Est GFR (CKD-EPI)(Non-Afr English) 113.1 BUN/Creatinine Ratio 51.0 Glucose Level 197 mg/dL Calcium Level 8.4 mg/dL Total Bilirubin 0.7 mg/dL Aspartate Amino Transf (AST/SGOT) 47 U/L Alanine Aminotransferase (ALT/SGPT) 73 U/L Alkaline Phosphatase 137 U/L Total Protein 6.4 g/dL Albumin 1.7 g/dL Globulin 4.7 Albumin/Globulin Ratio 0.361 Blood Gas Sample Site ART LINE Blood Gas pH 7.256 Blood Gas PCO2 72.3 mmHg Blood Gas PO2 62.0 mmHg Blood Gas HCO3 31.4 mmol/L Blood Gas Base Excess 3.2 mmol/L Lucas Test N/A Arterial Blood Oxygen Saturation 89.0 % Deoxyhemoglobin 10.8 % Carboxyhemoglobin 1.2 % Methemoglobin 0.6 % Total Hemoglobin 9.2 % Total Oxygen Concentration 11.4 % FiO2 90 % Blood Gas PEEP 16.0 CMH2O Total Carbon Dioxide 33.6 mmol/L Test 05/22/21 11:55 05/22/21 16:24 05/22/21 23:11 05/23/21 04:21 Blood Gas Sample Site ART LINE ART LINE Blood Gas pH 7.270 7.265 Blood Gas PCO2 72.2 mmHg 69.0 mmHg Blood Gas PO2 50.3 mmHg 69.4 mmHg Blood Gas HCO3 32.4 mmol/L 30.6 mmol/L Blood Gas Base Excess 4.1 mmol/L 2.7 mmol/L Lucas Test N/A N/A Arterial Blood Oxygen Saturation 82.4 % 91.6 % Deoxyhemoglobin 17.5 % 8.3 % Carboxyhemoglobin 0.5 % 1.4 % Methemoglobin 0.2 % 0.3 % Total Hemoglobin 10.0 % 9.0 % Total Oxygen Concentration 11.5 % 11.5 % Oxygen Delivery Method (LAB) MV VENT Blood Gas Vent Mode ACPC 26 PRVC Blood Gas Vent Rate 35 35 FiO2 100 % 100 % Blood Gas PEEP 16 CMH2O 18.0 CMH2O Total Carbon Dioxide 34.6 mmol/L 32.7 mmol/L Bedside Glucose 234 273 Blood Gas Temperature 37.0 Test 05/23/21 04:23 05/23/21 05:16 05/23/21 08:58 05/23/21 11:09 White Blood Count 13.6 10^3/uL Red Blood Count 2.81 10^6/uL Hemoglobin 8.4 g/dL Hematocrit 27.2 % Mean Corpuscular Volume 96.8 fL Mean Corpuscular Hemoglobin 29.9 pg Mean Corpuscular Hemoglobin Concent 30.9 g/dL Red Cell Distribution Width 14.9 % Platelet Count 301 10^3/uL Mean Platelet Volume 10.4 fL Neutrophils (%) (Auto) 90.8 % Lymphocytes (%) (Auto) 7.3 % Monocytes (%) (Auto) 1.7 % Neutrophils # (Auto) 12.4 10^3/uL Lymphocytes # (Auto) 0.99 10^3/uL1 Monocytes # (Auto) 0.2 10^3/uL Absolute Immature Granulocyte (auto 0.71 10^3 u/L Absolute Eosinophils (auto) 0.0 10^3/uL Immature Granulocytes % 5.20 % Eosinophils % 0.1 % Basophils % 0.1 % Basophils # 0.0 10^3/uL Sodium Level 145 mmol/L Potassium Level 3.4 mmol/L Chloride Level 107.0 mmol/L Carbon Dioxide Level 31.4 mmol/L Anion Gap 10.0 Blood Urea Nitrogen 29 mg/dL Creatinine 0.59 mg/dL Estimated GFR () 139.6 Est GFR (CKD-EPI)(Non-Afr English) 115.3 BUN/Creatinine Ratio 49.0 Glucose Level 297 mg/dL Calcium Level 8.7 mg/dL Total Bilirubin 0.5 mg/dL Aspartate Amino Transf (AST/SGOT) 30 U/L Alanine Aminotransferase (ALT/SGPT) 45 U/L Alkaline Phosphatase 112 U/L Total Protein 6.3 g/dL Albumin 1.8 g/dL Globulin 4.5 Albumin/Globulin Ratio 0.400 Differential Total Cells Counted 100 #CELLS Segmented Neutrophils 90 % Band Neutrophils 1 % Lymphocytes 8 % Metamyelocytes 1 % Differential Comment NORMAL Platelet Estimate ADEQUATE Platelet Morphology NORMAL Triglycerides Level 159 mg/dL Vancomycin Level Trough 16.2 ug/mL Bedside Glucose 267 Height (Feet): 5 Height (Inches): 5 Current Weight: 219 Usual Weight: 225 %IBW: 162 Recent Weight Change: Yes (weight up 10 pounds since last assessment) Weight Status: Obese GI Symptoms: Constipation (pt with no BM since the 9th per RN) Food Allergies: No Cultural/Ethnic/Confucianism Cookie: none known Usual Diet at Home: regular Skin Integrity/Comment: No Current %PO: NPO Calories/Kcals/Kg: abbe st eq Kcals Calculated: 1750 kcal Protein g/k-1.5 g/kg IBW Protein Calculated: 56-85g Fluid: ml: 2363 ml (25 ml/kg) Nutritional Problem: Nutr. Problems Present Problems: Inadequate oral intake Etiology: decreased ability to consume Signs/Symptoms: remains intubated and sedated, need for alternate means of nutrition. TPN meeting at least 75% of nutrition needs currently Recommendations by RD: PPN/TPN RD Comments: Clinimix tolerated at 85 ml/hr is met. Continue 250 ml of 20% lipid emulsion q48h at 15 ml/hr. Clinimix and lipid emulsion combined will provide 1700 kcal, 306g carbs, 102g protein, and 25g fat to meet 100% of patient's nutrition needs. Consider running trickle feeds of Jevity 1.2 at 10 ml/hr to maintain gut integrity Continue to monitor electrolytes and triglycerides. Monitor BG and correct as indicated. Expected Outcomes Goals 1.TPN to run at goal rate of 85 ml/hr next 3 days. (met and continue) 2. Weight with maintain +/- 2% during hospital stay (not met and continue) Discharge goal pending. Malnutrtion/Nutrition Risk Edu: No MD Notificiation Needed?: No TESSA GUZMAN May 23, 2021 14:29
--- NOTE | 2021-05-23 14:40 | NUR ---
Called to room, Pt EtCO2 80's, changed out the EtCO2 cord, lavaged and suctioned large amt thick keller secreations, Noted the Vt were half of what was noted at 1400, BBS equal clear t/o. RN notified DR, Xray ordered and ABG ordered
--- NOTE | 2021-05-23 15:07 | NUR ---
NOTIFIED DR. SMITH OF STATUS CHANGE AFTER CHANGING DRESSING TO COCCYX. HR 110, OR SAT 92% END TIDAL CO2 80 AND RT REPORTS TIDAL VOLUME DECREASED TO 200 FROM 400. NEW ORDERS RECEIVED FOR ABG AND CHEST XRAY. RBTO.
--- NOTE | 2021-05-23 15:14 | PRM.PN ---
Assessment & Plan Provider Note: contacted by bedside staff staff completed turning and assessing patient sacrum/wound care - since have noted marked increase in C02 reading monitor and noted difference on obtained tidal volumes; Sa02 reported holding 92% per staff - ETT remains at same position as prior to turning stat ABG and stat portable xray to assess ETT position ordered d/w bedside staff ODILIA SMITH DO May 23, 2021 15:14
--- NOTE | 2021-05-23 15:44 | NUR ---
NOTIFIED DR. SMITH OF ABG RESULTS NEW ORDERS RECEIVED TO GIVE PARALYTIC REGULARLY, GIVE 2 AMPS OF BICARB STAT. NOTIFIED DR. MONDRAGON TO NOTIFY FAMILY OF PATIENT DECLINE IN CONDITION.
[2021-05-23] MEDS ORDERED: SODIUM BICARBONATE IV STA ×2 (15:51)
[2021-05-23 15:53] LABS: ABG PCO2 135.7 mmHg (35.0-45.0); ABG PH 7.044 (7.350-7.450); BE(B) 3.4 mmol/L (-2.0-2.0); HCO3act 36.2 mmol/L (22.0-26.0); pO2 83.3 mmHg (80.0-100.0)
--- NOTE | 2021-05-23 16:04 | PRM.PN ---
Assessment & Plan Provider Note: contacted by bedside staff with results of ordered ABG unfortunately reflect a further deterioration and patient with profound acidosis and hypercarbia despite max vent supportive strategy 7.04/135/83/93 recognizing it as a temporizing measure at best and unlikely to change outcome - will given 2 amp bicarb and requested staff paralyze patient - d/w bedside staff d/w bedside physician Dr Mandujano whom has had prior conversations with sister - reportedly quite ill as well with COVID-19 infection. recommended updating family of further clinical deterioration despite max support and advised addressing Advanced Directives at that time offered to speak with the family directly thereafter is would be useful to them ODILIA SMITH DO May 23, 2021 16:04
--- NOTE | 2021-05-23 16:05 | NUR ---
LEVOPHED STARTED BACK @ 2MCG/MIN INCREASED BY 2MCG/MIN Q2 MINUTES TO ACHIEVE MAP >60 LEVOPHED UP TO 8MCG/MIN.
--- NOTE | 2021-05-23 16:31 | NUR ---
DR. MONDRAGON STATES HE SPOKE WITH FAMILY THEY ARE ON THE WAY TO SEE THE PATIENTS. THEY ARE 3 HOURS AWAY. PATIENT FULL CODE.
--- NOTE | 2021-05-23 16:41 | DIREP ---
PROCEDURE:CHEST 1 VIEW COMPARISON:[facility], CR, XRAY CHEST SINGLE VW, 05/23/2021, 07:24 AM. INDICATIONS:assess ETT position FINDINGS: LUNGS/PLEURA:Stable moderate ground-glass and interstitial infiltrates are present throughout both lungs. No focal consolidation or pleural effusion. VASCULATURE:Normal. Unremarkable pulmonary vasculature. CARDIAC:Normal. No cardiac silhouette abnormality or cardiomegaly. MEDIASTINUM:Normal. No visible mass or adenopathy. BONES:Normal. No fracture or visible bony lesion. OTHER:Endotracheal tube tip terminates between the clavicles. Nasogastric tube extends below the radiograph. A left subclavian central venous catheter terminates over the mid SVC CONCLUSION: 1. Stable interstitial and ground-glass infiltrates throughout both lungs. 2. Endotracheal tube tip terminates between the level of the clavicles. Nasogastric tube extends below the diaphragm. Dictated by: Edvin Tyler MD on 05/23/2021 at 04:37 PM
--- NOTE | 2021-05-23 16:53 | PRM.PN ---
Assessment & Plan Provider Note: discussed with sisters and other famly members to update them and answer any questions they may have the plan on coming to hospital - report being 3 hours away at this time all questions answered at this time tele critical care consultants remain available at any time for assistance ODILIA SMITH DO May 23, 2021 16:53
[2021-05-23] MEDS: LEVOPHED 8 MG in NS 250ML 250 ML IV SCH (17:37)
--- NOTE | 2021-05-23 18:45 | NUR ---
REPORT RECEIVED FROM KULDIP ROUSSEAU RN. ASSUMED PT CARE.
--- NOTE | 2021-05-23 19:39 | PRM.PN ---
Subjective Events since last encounter very sick today she started to have fevers again requiring Levophed 100% fio2 ABG abnormal. tracheal secretions growing Enterobacter Assessment & Plan Provider Note: 35 yo F was admitted with COVID , currently intubated and having fevers. IMPRESSION: -acute hypoxemic resp failure. intubated on 05/06. -Fevers in a ICU patient since 05/10, likely due to VAP vs COVID organizing pneumonia. -tracheal secretions growing Enterobacter ESBL -increased ventilatory requirement noted. on FiO2 of 100% -midline was removed on 05/14. catheter tip and B cx are neg -COVID diagnosed on 04/29 s/p Remdesevir. -D dimer has trended down -HIV neg RECOMMENDATIONS: -stop Cefepime. -start Meropenem -if remains febrile then Add Micafungin 100 mg q24 -cont Vanc - duration typically 7-10 days, started on 05/14 -cont Steroids for the COVID pneumonia. thanks for the consult we will follow peripherally Please call with any questions Fanta Williamson MD Infectious Diseases cell: [phone] FANTA WILLIAMSON MD May 23, 2021 19:39
--- NOTE | 2021-05-23 19:40 | NUR ---
DR WILLIAMSON - INFECTIOUS DISEASE TELEMED CALLED WITH TELEPHONE ORDER TO STOP CEFEPIME AND START PT ON MEROPENEM 1GM Q8RHS DUE TO ENTEROBACTER INFECTION. TELEPHONE ORDER RBAV.
[2021-05-23] MEDS: MERREM 1,000 MG in NS 100ML 100 ML IV SCH (20:00)
[2021-05-23] MEDS ORDERED: NS 100ML 100 ML IV ONE (20:04)
[2021-05-24] VITALS (104 sets, daily range): BP systolic 100–159; BP diastolic 44–69
[2021-05-24] MEDS: NS IV SCH ×3 (00:27→19:33)
[2021-05-24] MEDS: PRECEDEX 400 MCG/100 ML INJECT 100 ML IV SCH ×8 (00:27→19:30)
[2021-05-24] MEDS: SUBLIMAZE IV SCH ×2 (00:27→19:33)
[2021-05-24] MEDS: NORCURON IV PRN ×9 (02:13→23:16)
[2021-05-24] MEDS ORDERED: NS 100ML 100 ML IV ONE (03:04)
[2021-05-24] MEDS: MERREM 1,000 MG in NS 100ML 100 ML IV SCH ×3 (03:41→20:35)
[2021-05-24 05:12] LABS: ABG PCO2 86.5 mmHg (35.0-45.0); ABG PH 7.232 (7.350-7.450); BE(B) 6.5 mmol/L (-2.0-2.0); HCO3act 35.6 mmol/L (22.0-26.0); pO2 113.7 mmHg (80.0-100.0)
[2021-05-24 05:56] LABS: BASOPHIL % 0.1 % (0.0-0.2); LYMPHOCYTES # 1.26 10^3/uL1 (1.0-4.8); LYMPHOCYTES % 6.9 % (24.0-44.0); MEAN CORP HGB 29.8 pg (26-34); MONOCYTES # 0.7 10^3/uL (0.3-0.8); MONOCYTES % 3.9 % (5.0-12.0); NEUTROPHIL # 16.2 10^3/uL (1.8-7.7); NEUTROPHILS % 89.1 % (41.0-85.0); PLATELET COUNT 418 10^3/uL (150-400); RED CELL DISTRIBUTION WIDTH 15.4 % (11.5-14.5)
[2021-05-24] MEDS: SOLU-MEDROL IV SCH ×3 (06:00→21:49)
[2021-05-24 06:11] LABS: CALCIUM 8.7 mg/dL (8.4-10.5); CARBON DIOXIDE 36.1 mmol/L (20.0-32)
[2021-05-24 06:41] LABS: LYMPHOCYTE 9 % (25-36); MONOCYTE 4 % (3-9); SEGMENTED NEUTROPHILS 87 % (31-76)
--- NOTE | 2021-05-24 06:49 | NUR ---
REPORT TO ONCOMING SHIFT. PT CARE RELINQUISHED.
[2021-05-24] MEDS: HUMULIN R SQ SCH ×4 (07:30→21:03)
[2021-05-24] MEDS: LOVENOX SQ SCH ×2 (08:30→20:35)
--- NOTE | 2021-05-24 08:40 | TELE.CONS ---
Consultation Reason for Consult: Reason for Consultation: resp failure, covid History of Present Illness History of Patient Comments patient remains intubated on PC ventilation, high PEEP, fio2 support. Review of Systems Allergies: Coded Allergies: ibuprofen (Verified Allergy, Unknown, 04/29/21) naproxen (Verified Allergy, Unknown, 04/29/21) VITALS REVIEW VITALS Vital Sign - Last 24 Hours 05/24/21 05/24/21 05/24/21 05/24/21 07:00 07:15 07:30 07:30 Temp 99.1 99.1 99.1 Pulse 73 73 72 Resp 35 35 B/P (MAP) 136/59 (84) 137/59 (85) 136/59 (84) Pulse Ox 98 97 97 FiO2 100 05/24/21 05/24/21 05/24/21 05/24/21 07:30 07:45 08:00 08:01 Temp 99.1 99.1 99.1 Pulse 69 71 70 Resp 35 35 35 B/P (MAP) 137/60 (85) 139/61 (87) 140/61 (87) Pulse Ox 97 97 97 O2 Delivery Mechanical Ventilator 05/24/21 08:15 Temp 99.1 Pulse 67 B/P (MAP) 134/57 (82) Pulse Ox 97 LABS LAB RESULTS Laboratory Tests Test 04/29/21 04:35 04/30/21 04:28 05/01/21 04:32 05/01/21 11:20 White Blood Count 6.2 10^3/uL 6.4 10^3/uL 10.2 10^3/uL Red Blood Count 4.64 10^6/uL 4.49 10^6/uL 4.50 10^6/uL Hemoglobin 13.5 g/dL 13.3 g/dL 13.3 g/dL Hematocrit 41.2 % 39.3 % 39.6 % Mean Corpuscular Volume 88.8 fL 87.5 fL 88.0 fL Mean Corpuscular Hemoglobin 29.1 pg 29.6 pg 29.6 pg Mean Corpuscular Hemoglobin Concent 32.8 g/dL 33.8 g/dL 33.6 g/dL Red Cell Distribution Width 12.5 % 12.1 % 12.1 % Platelet Count 162 10^3/uL 195 10^3/uL 234 10^3/uL Mean Platelet Volume 10.9 fL 10.8 fL 10.4 fL Neutrophils (%) (Auto) 72.3 % 70.8 % Lymphocytes (%) (Auto) 19.0 % 20.6 % Monocytes (%) (Auto) 8.4 % 8.4 % Neutrophils # (Auto) 4.5 10^3/uL 4.5 10^3/uL Lymphocytes # (Auto) 1.17 10^3/uL1 1.32 10^3/uL1 Monocytes # (Auto) 0.5 10^3/uL 0.5 10^3/uL Absolute Immature Granulocyte (auto 0.02 10^3 u/L 0.04 10^3 u/L Absolute Eosinophils (auto) 0.0 10^3/uL 0.0 10^3/uL Immature Granulocytes % 0.30 % 0.60 % Eosinophils % 0.0 % 0.0 % Basophils % 0.0 % 0.2 % Basophils # 0.0 10^3/uL 0.0 10^3/uL Sodium Level 141 mmol/L 142 mmol/L 139 mmol/L Potassium Level 4.0 mmol/L 3.9 mmol/L 3.9 mmol/L Chloride Level 106.0 mmol/L 106.0 mmol/L 105.0 mmol/L Carbon Dioxide Level 25.2 mmol/L 26.2 mmol/L 26.8 mmol/L Anion Gap 13.8 13.7 11.1 Blood Urea Nitrogen 12 mg/dL 17 mg/dL 12 mg/dL Creatinine 0.65 mg/dL 0.54 mg/dL 0.56 mg/dL Estimated GFR () 124.8 154.6 148.2 Est GFR (CKD-EPI)(Non-Afr Macedonian) 103.1 127.7 122.5 BUN/Creatinine Ratio 18.0 31.0 21.0 Glucose Level 98 mg/dL 92 mg/dL 87 mg/dL Calcium Level 8.6 mg/dL 8.4 mg/dL 8.8 mg/dL Total Bilirubin 0.5 mg/dL 0.5 mg/dL 0.5 mg/dL Aspartate Amino Transf (AST/SGOT) 42 U/L 40 U/L 36 U/L Alanine Aminotransferase (ALT/SGPT) 47 U/L 42 U/L 39 U/L Alkaline Phosphatase 47 U/L 43 U/L 43 U/L Total Protein 6.6 g/dL 6.6 g/dL 6.7 g/dL Albumin 2.6 g/dL 2.5 g/dL 2.5 g/dL Globulin 4.0 4.1 4.2 Albumin/Globulin Ratio 0.650 0.609 0.595 Serum HCG, Qualitative NEGATIVE Blood Gas Sample Site RT RADIAL ARTERY Blood Gas pH 7.459 Blood Gas PCO2 31.9 mmHg Blood Gas PO2 86.7 mmHg Blood Gas HCO3 22.1 mmol/L Blood Gas Base Excess -0.8 mmol/L Lucas Test POSITIVE Arterial Blood Oxygen Saturation 96.2 % Deoxyhemoglobin 3.8 % Carboxyhemoglobin 0.1 % Methemoglobin 0.1 % Total Hemoglobin 14.8 % Total Oxygen Concentration 20.0 % Blood Gas Temperature 37.0 Oxygen Delivery Method (LAB) BIPAP Blood Gas Vent Mode ST FiO2 80 % Total Carbon Dioxide 23.1 mmol/L Test 05/02/21 06:37 05/02/21 08:25 05/03/21 05:20 05/03/21 07:55 White Blood Count 7.6 10^3/uL 12.0 10^3/uL Red Blood Count 4.62 10^6/uL 4.71 10^6/uL Hemoglobin 13.6 g/dL 13.6 g/dL Hematocrit 40.6 % 41.1 % Mean Corpuscular Volume 87.9 fL 87.3 fL Mean Corpuscular Hemoglobin 29.4 pg 28.9 pg Mean Corpuscular Hemoglobin Concent 33.5 g/dL 33.1 g/dL Red Cell Distribution Width 12.0 % 11.9 % Platelet Count 268 10^3/uL 338 10^3/uL Mean Platelet Volume 10.5 fL 10.2 fL Neutrophils (%) (Auto) 82.9 % 83.2 % Lymphocytes (%) (Auto) 11.7 % 10.3 % Monocytes (%) (Auto) 5.4 % 5.1 % Neutrophils # (Auto) 6.3 10^3/uL 10.0 10^3/uL Lymphocytes # (Auto) 0.89 10^3/uL1 1.24 10^3/uL1 Monocytes # (Auto) 0.4 10^3/uL 0.6 10^3/uL Absolute Immature Granulocyte (auto 0.12 10^3 u/L 0.14 10^3 u/L Absolute Eosinophils (auto) 0.0 10^3/uL 0.0 10^3/uL Immature Granulocytes % 1.60 % 1.20 % Eosinophils % 0.0 % 0.1 % Basophils % 0.0 % 0.1 % Basophils # 0.0 10^3/uL 0.0 10^3/uL Sodium Level 140 mmol/L 140 mmol/L Potassium Level 4.7 mmol/L 4.3 mmol/L Chloride Level 104.0 mmol/L 103.0 mmol/L Carbon Dioxide Level 27.6 mmol/L 28.1 mmol/L Anion Gap 13.1 13.2 Blood Urea Nitrogen 14 mg/dL 18 mg/dL Creatinine 0.62 mg/dL 0.65 mg/dL Estimated GFR () 131.8 124.8 Est GFR (CKD-EPI)(Non-Afr Macedonian) 108.9 103.1 BUN/Creatinine Ratio 22.0 27.0 Glucose Level 121 mg/dL 107 mg/dL Calcium Level 8.8 mg/dL 8.9 mg/dL Total Bilirubin 0.4 mg/dL 0.6 mg/dL Aspartate Amino Transf (AST/SGOT) 26 U/L 26 U/L Alanine Aminotransferase (ALT/SGPT) 37 U/L 31 U/L Alkaline Phosphatase 42 U/L 41 U/L Total Protein 6.7 g/dL 6.8 g/dL Albumin 2.5 g/dL 2.6 g/dL Globulin 4.2 4.2 Albumin/Globulin Ratio 0.595 0.619 Blood Gas Sample Site RT RADIAL ARTERY LEFT RADIAL ARTERY Blood Gas pH 7.405 7.416 Blood Gas PCO2 41.1 mmHg 37.1 mmHg Blood Gas PO2 82.5 mmHg 149.3 mmHg Blood Gas HCO3 25.2 mmol/L 23.3 mmol/L Blood Gas Base Excess 0.4 mmol/L -0.8 mmol/L Lucas Test POSITIVE POSITIVE Arterial Blood Oxygen Saturation 95.5 % 98.7 % Deoxyhemoglobin 4.5 % 1.3 % Carboxyhemoglobin 0.6 % 0.4 % Methemoglobin 0.3 % 0.5 % Total Hemoglobin 14.6 % 14.5 % Total Oxygen Concentration 19.5 % 20.2 % Blood Gas Temperature 37 37.00 Oxygen Delivery Method (LAB) BIPAP15/7 BP 15/7 FiO2 99 % 100 % Total Carbon Dioxide 26.4 mmol/L 24.4 mmol/L Blood Gas Vent Mode S/T Test 05/03/21 10:10 05/04/21 10:08 05/05/21 05:08 05/06/21 04:30 D-Dimer 1.21 mg/L 5.32 mg/L Ferritin 697 ng/mL 724 ng/mL Lactate Dehydrogenase 329 U/L White Blood Count 17.0 10^3/uL 14.0 10^3/uL 15.9 10^3/uL Red Blood Count 4.46 10^6/uL 4.70 10^6/uL 4.43 10^6/uL Hemoglobin 12.9 g/dL 13.7 g/dL 13.2 g/dL Hematocrit 38.9 % 41.0 % 39.1 % Mean Corpuscular Volume 87.2 fL 87.2 fL 88.3 fL Mean Corpuscular Hemoglobin 28.9 pg 29.1 pg 29.8 pg Mean Corpuscular Hemoglobin Concent 33.2 g/dL 33.4 g/dL 33.8 g/dL Red Cell Distribution Width 11.8 % 11.9 % 12.0 % Platelet Count 334 10^3/uL 309 10^3/uL 290 10^3/uL Mean Platelet Volume 10.0 fL 9.8 fL 9.8 fL Neutrophils (%) (Auto) 90.6 % 88.5 % 87.7 % Lymphocytes (%) (Auto) 4.4 % 7.5 % 8.3 % Monocytes (%) (Auto) 3.9 % 3.3 % 3.5 % Neutrophils # (Auto) 15.4 10^3/uL 12.3 10^3/uL 13.9 10^3/uL Lymphocytes # (Auto) 0.75 10^3/uL1 1.05 10^3/uL1 1.32 10^3/uL1 Monocytes # (Auto) 0.7 10^3/uL 0.5 10^3/uL 0.6 10^3/uL Absolute Immature Granulocyte (auto 0.16 10^3 u/L 0.19 10^3 u/L 0.16 10^3 u/L Absolute Eosinophils (auto) 0.0 10^3/uL 0.1 10^3/uL 0.1 10^3/uL Immature Granulocytes % 0.90 % 1.40 % 1.00 % Eosinophils % 0.1 % 0.6 % 0.4 % Basophils % 0.1 % 0.1 % 0.1 % Basophils # 0.0 10^3/uL 0.0 10^3/uL 0.0 10^3/uL Sodium Level 135 mmol/L 137 mmol/L 138 mmol/L Potassium Level 3.9 mmol/L 3.6 mmol/L 3.8 mmol/L Chloride Level 102.0 mmol/L 102.0 mmol/L 103.0 mmol/L Carbon Dioxide Level 25.7 mmol/L 26.8 mmol/L 27.1 mmol/L Anion Gap 11.2 11.8 11.7 Blood Urea Nitrogen 20 mg/dL 13 mg/dL 14 mg/dL Creatinine 0.75 mg/dL 0.62 mg/dL 0.66 mg/dL Estimated GFR () 105.8 131.8 122.6 Est GFR (CKD-EPI)(Non-Afr [place]onian) 87.4 108.9 101.3 BUN/Creatinine Ratio 26.0 20.0 21.0 Glucose Level 135 mg/dL 86 mg/dL 96 mg/dL Calcium Level 8.8 mg/dL 8.8 mg/dL 8.8 mg/dL Total Bilirubin 0.8 mg/dL 0.8 mg/dL 0.9 mg/dL Aspartate Amino Transf (AST/SGOT) 33 U/L 35 U/L 30 U/L Alanine Aminotransferase (ALT/SGPT) 34 U/L 34 U/L 39 U/L Alkaline Phosphatase 43 U/L 41 U/L 49 U/L Total Protein 6.8 g/dL 6.7 g/dL 6.9 g/dL Albumin 2.5 g/dL 2.4 g/dL 2.4 g/dL Globulin 4.3 4.3 4.5 Albumin/Globulin Ratio 0.581 0.558 0.533 Test 05/06/21 07:27 05/06/21 19:40 05/06/21 21:55 05/07/21 04:13 Blood Gas Sample Site RT BRACIAL ARTERY LEFT RADIAL ARTERY RT RADIAL ARTERY Blood Gas pH 7.452 7.478 7.473 Blood Gas PCO2 35.8 mmHg 40.1 mmHg 36.9 mmHg Blood Gas PO2 45.9 mmHg 54.5 mmHg 38.1 mmHg Blood Gas HCO3 24.4 mmol/L 29.1 mmol/L 26.4 mmol/L Blood Gas Base Excess 0.8 mmol/L 5.2 mmol/L 2.9 mmol/L Lucas Test N/A POSITIVE POSITIVE Arterial Blood Oxygen Saturation 82.3 % 87.3 % 71.2 % Deoxyhemoglobin 17.6 % 12.5 % 28.5 % Carboxyhemoglobin 0.2 % 0.9 % 0.7 % Methemoglobin 0.2 % 0.4 % 0.4 % Total Hemoglobin 13.5 % 13.5 % 13.2 % Total Oxygen Concentration 15.5 % 16.3 % 13.0 % Oxygen Delivery Method (LAB) CF 50LPM BIPAP 15/7 VENT FiO2 100 % 100 % 100 % Total Carbon Dioxide 25.5 mmol/L 30.3 mmol/L 27.6 mmol/L Blood Gas Temperature 37 37 Blood Gas Vent Mode AC Blood Gas Vent Rate 14 Blood Gas Tidal Volume 400 ML Blood Gas PEEP 12 CMH2O White Blood Count 16.3 10^3/uL Red Blood Count 4.35 10^6/uL Hemoglobin 12.8 g/dL Hematocrit 38.4 % Mean Corpuscular Volume 88.3 fL Mean Corpuscular Hemoglobin 29.4 pg Mean Corpuscular Hemoglobin Concent 33.3 g/dL Red Cell Distribution Width 12.0 % Platelet Count 268 10^3/uL Mean Platelet Volume 9.9 fL Neutrophils (%) (Auto) 89.4 % Lymphocytes (%) (Auto) 6.1 % Monocytes (%) (Auto) 4.3 % Neutrophils # (Auto) 14.6 10^3/uL Lymphocytes # (Auto) 0.99 10^3/uL1 Monocytes # (Auto) 0.7 10^3/uL Absolute Immature Granulocyte (auto 0.14 10^3 u/L Absolute Eosinophils (auto) 0.0 10^3/uL Immature Granulocytes % 0.90 % Eosinophils % 0.1 % Basophils % 0.1 % Basophils # 0.0 10^3/uL Sodium Level 141 mmol/L Potassium Level 4.3 mmol/L Chloride Level 105.0 mmol/L Carbon Dioxide Level 29.2 mmol/L Anion Gap 11.1 Blood Urea Nitrogen 15 mg/dL Creatinine 0.68 mg/dL Estimated GFR () 118.5 Est GFR (CKD-EPI)(Non-Afr Macedonian) 97.9 BUN/Creatinine Ratio 22.0 Glucose Level 108 mg/dL Calcium Level 9.0 mg/dL Total Bilirubin 0.7 mg/dL Aspartate Amino Transf (AST/SGOT) 27 U/L Alanine Aminotransferase (ALT/SGPT) 39 U/L Alkaline Phosphatase 50 U/L Total Protein 6.8 g/dL Albumin 2.2 g/dL Globulin 4.6 Albumin/Globulin Ratio 0.478 Procalcitonin 0.08 ng/mL Test 05/07/21 05:02 05/07/21 06:35 05/07/21 18:09 05/08/21 00:56 Differential Total Cells Counted 100 #CELLS Segmented Neutrophils 85 % Lymphocytes 12 % Monocytes 3 % Platelet Estimate ADEQUATE Platelet Morphology NORMAL Blood Gas Sample Site RT RADIAL ARTERY Blood Gas pH 7.338 Blood Gas PCO2 48.1 mmHg Blood Gas PO2 51.4 mmHg Blood Gas HCO3 25.3 mmol/L Blood Gas Base Excess -1.0 mmol/L Lucas Test POSITIVE Arterial Blood Oxygen Saturation 82.7 % Deoxyhemoglobin 17.2 % Carboxyhemoglobin 0.4 % Methemoglobin 0.1 % Total Hemoglobin 14.5 % Total Oxygen Concentration 16.7 % Blood Gas Temperature 37 Oxygen Delivery Method (LAB) VENT Blood Gas Vent Mode AC Blood Gas Vent Rate 14 FiO2 100 % Blood Gas Tidal Volume 400 ML Blood Gas PEEP 12 CMH2O Total Carbon Dioxide 26.7 mmol/L Bedside Glucose 157 147 Test 05/08/21 04:28 05/08/21 05:50 05/08/21 17:50 05/08/21 23:51 White Blood Count 17.7 10^3/uL Red Blood Count 4.52 10^6/uL Hemoglobin 13.2 g/dL Hematocrit 41.6 % Mean Corpuscular Volume 92.0 fL Mean Corpuscular Hemoglobin 29.2 pg Mean Corpuscular Hemoglobin Concent 31.7 g/dL Red Cell Distribution Width 12.5 % Platelet Count 291 10^3/uL Mean Platelet Volume 10.2 fL Neutrophils (%) (Auto) 93.7 % Lymphocytes (%) (Auto) 4.5 % Monocytes (%) (Auto) 1.8 % Neutrophils # (Auto) 16.6 10^3/uL Lymphocytes # (Auto) 0.79 10^3/uL1 Monocytes # (Auto) 0.3 10^3/uL Absolute Immature Granulocyte (auto 0.11 10^3 u/L Absolute Eosinophils (auto) 0.0 10^3/uL Immature Granulocytes % 0.60 % Eosinophils % 0.0 % Basophils % 0.0 % Basophils # 0.0 10^3/uL Sodium Level 147 mmol/L Potassium Level 4.1 mmol/L Chloride Level 109.0 mmol/L Carbon Dioxide Level 30.6 mmol/L Anion Gap 11.5 Blood Urea Nitrogen 18 mg/dL Creatinine 0.65 mg/dL Estimated GFR () 124.8 Est GFR (CKD-EPI)(Non-Afr Macedonian) 103.1 BUN/Creatinine Ratio 27.0 Glucose Level 145 mg/dL Calcium Level 9.2 mg/dL Total Bilirubin 0.6 mg/dL Aspartate Amino Transf (AST/SGOT) 41 U/L Alanine Aminotransferase (ALT/SGPT) 68 U/L Alkaline Phosphatase 67 U/L Total Protein 7.1 g/dL Albumin 2.3 g/dL Globulin 4.8 Albumin/Globulin Ratio 0.479 Blood Gas Sample Site LEFT RADIAL ARTERY Blood Gas pH 7.365 Blood Gas PCO2 53.4 mmHg Blood Gas PO2 48.1 mmHg Blood Gas HCO3 29.8 mmol/L Blood Gas Base Excess 3.1 mmol/L Lucas Test POSITIVE Arterial Blood Oxygen Saturation 79.8 % Deoxyhemoglobin 20.0 % Carboxyhemoglobin 0.6 % Methemoglobin 0.4 % Total Hemoglobin 15.4 % Total Oxygen Concentration 17.1 % FiO2 100 % Blood Gas PEEP 12.0 CMH2O Total Carbon Dioxide 31.5 mmol/L Bedside Glucose 142 131 Test 05/09/21 04:20 05/09/21 07:35 05/09/21 18:10 05/09/21 20:10 White Blood Count 22.5 10^3/uL Red Blood Count 4.39 10^6/uL Hemoglobin 13.0 g/dL Hematocrit 40.7 % Mean Corpuscular Volume 92.7 fL Mean Corpuscular Hemoglobin 29.6 pg Mean Corpuscular Hemoglobin Concent 31.9 g/dL Red Cell Distribution Width 12.6 % Platelet Count 330 10^3/uL Mean Platelet Volume 10.1 fL Neutrophils (%) (Auto) 92.6 % Lymphocytes (%) (Auto) 4.1 % Monocytes (%) (Auto) 3.3 % Neutrophils # (Auto) 20.8 10^3/uL Lymphocytes # (Auto) 0.92 10^3/uL1 Monocytes # (Auto) 0.8 10^3/uL Absolute Immature Granulocyte (auto 0.10 10^3 u/L Absolute Eosinophils (auto) 0.0 10^3/uL Immature Granulocytes % 0.40 % Eosinophils % 0.0 % Basophils % 0.0 % Basophils # 0.0 10^3/uL Sodium Level 148 mmol/L Potassium Level 4.2 mmol/L Chloride Level 109.0 mmol/L Carbon Dioxide Level 30.9 mmol/L Anion Gap 12.3 Blood Urea Nitrogen 18 mg/dL Creatinine 0.65 mg/dL Estimated GFR () 124.8 Est GFR (CKD-EPI)(Non-Afr Macedonian) 103.1 BUN/Creatinine Ratio 27.0 Glucose Level 142 mg/dL Calcium Level 8.6 mg/dL Total Bilirubin 0.8 mg/dL Aspartate Amino Transf (AST/SGOT) 38 U/L Alanine Aminotransferase (ALT/SGPT) 55 U/L Alkaline Phosphatase 70 U/L Total Protein 6.9 g/dL Albumin 2.1 g/dL Globulin 4.8 Albumin/Globulin Ratio 0.437 Procalcitonin 0.06 ng/mL Blood Gas Sample Site RT BRACIAL ARTERY RT BRACIAL ARTERY Blood Gas pH 7.387 7.426 Blood Gas PCO2 48.3 mmHg 46.7 mmHg Blood Gas PO2 57.0 mmHg 49.5 mmHg Blood Gas HCO3 28.4 mmol/L 30.0 mmol/L Blood Gas Base Excess 2.6 mmol/L 4.8 mmol/L Lucas Test POSITIVE POSITIVE Arterial Blood Oxygen Saturation 88.1 % 83.6 % Deoxyhemoglobin 11.9 % 16.2 % Carboxyhemoglobin 0.1 % 0.9 % Methemoglobin 0.1 % 0.5 % Total Hemoglobin 13.6 % 13.9 % Total Oxygen Concentration 16.8 % 16.1 % Blood Gas Temperature 37 37 Oxygen Delivery Method (LAB) VENT VENT Blood Gas Vent Mode AC AC Blood Gas Vent Rate 14 22 FiO2 100 % 100 % Blood Gas Tidal Volume 400 ML 320 ML Blood Gas PEEP 12 CMH2O 12 CMH2O Total Carbon Dioxide 29.9 mmol/L 31.5 mmol/L Bedside Glucose 118 Test 05/09/21 23:58 05/10/21 05:00 05/10/21 05:20 05/10/21 05:44 Bedside Glucose 113 Blood Gas Sample Site LEFT RADIAL ARTERY Blood Gas pH 7.365 Blood Gas PCO2 56.9 mmHg Blood Gas PO2 54.0 mmHg Blood Gas HCO3 31.8 mmol/L Blood Gas Base Excess 5.0 mmol/L Lucas Test POSITIVE Arterial Blood Oxygen Saturation 84.6 % Deoxyhemoglobin 15.2 % Carboxyhemoglobin 0.7 % Methemoglobin 0.3 % Total Hemoglobin 12.6 % Total Oxygen Concentration 14.8 % Blood Gas Temperature 37.0 Oxygen Delivery Method (LAB) VENTILATOR Blood Gas Vent Mode AC+ Blood Gas Vent Rate 28 FiO2 100 % Blood Gas Tidal Volume 320 ML Blood Gas PEEP 14.0 CMH2O Total Carbon Dioxide 33.5 mmol/L White Blood Count 13.9 10^3/uL Red Blood Count 4.20 10^6/uL Hemoglobin 12.4 g/dL Hematocrit 39.1 % Mean Corpuscular Volume 93.1 fL Mean Corpuscular Hemoglobin 29.5 pg Mean Corpuscular Hemoglobin Concent 31.7 g/dL Red Cell Distribution Width 12.4 % Platelet Count 201 10^3/uL Mean Platelet Volume 10.3 fL Neutrophils (%) (Auto) 93.0 % Lymphocytes (%) (Auto) 4.7 % Monocytes (%) (Auto) 2.3 % Neutrophils # (Auto) 13.0 10^3/uL Lymphocytes # (Auto) 0.65 10^3/uL1 Monocytes # (Auto) 0.3 10^3/uL Absolute Immature Granulocyte (auto 0.05 10^3 u/L Absolute Eosinophils (auto) 0.0 10^3/uL Immature Granulocytes % 0.40 % Eosinophils % 0.0 % Basophils % 0.0 % Basophils # 0.0 10^3/uL Sodium Level 143 mmol/L Potassium Level 4.2 mmol/L Chloride Level 107.0 mmol/L Carbon Dioxide Level 31.5 mmol/L Anion Gap 8.7 Blood Urea Nitrogen 14 mg/dL Creatinine 0.51 mg/dL Estimated GFR () 165.1 Est GFR (CKD-EPI)(Non-Afr Macedonian) 136.5 BUN/Creatinine Ratio 27.0 Glucose Level 146 mg/dL Calcium Level 8.7 mg/dL Total Bilirubin 0.6 mg/dL Aspartate Amino Transf (AST/SGOT) 35 U/L Alanine Aminotransferase (ALT/SGPT) 56 U/L Alkaline Phosphatase 61 U/L Total Protein 6.3 g/dL Albumin 2.1 g/dL Globulin 4.2 Albumin/Globulin Ratio 0.500 Triglycerides Level 207 mg/dL Segmented Neutrophils 98 % Lymphocytes 1 % Monocytes 1 % Platelet Estimate ADEQUATE Platelet Morphology NORMAL Test 05/10/21 12:40 05/10/21 17:57 05/11/21 00:01 05/11/21 05:20 Bedside Glucose 136 135 120 White Blood Count 15.3 10^3/uL Red Blood Count 4.32 10^6/uL Hemoglobin 12.8 g/dL Hematocrit 39.8 % Mean Corpuscular Volume 92.1 fL Mean Corpuscular Hemoglobin 29.6 pg Mean Corpuscular Hemoglobin Concent 32.2 g/dL Red Cell Distribution Width 12.2 % Platelet Count 222 10^3/uL Mean Platelet Volume 10.7 fL Neutrophils (%) (Auto) 93.0 % Lymphocytes (%) (Auto) 4.0 % Monocytes (%) (Auto) 3.0 % Neutrophils # (Auto) 14.3 10^3/uL Lymphocytes # (Auto) 0.61 10^3/uL1 Monocytes # (Auto) 0.5 10^3/uL Absolute Immature Granulocyte (auto 0.06 10^3 u/L Absolute Eosinophils (auto) 0.0 10^3/uL Immature Granulocytes % 0.40 % Eosinophils % 0.0 % Basophils % 0.0 % Basophils # 0.0 10^3/uL Sodium Level 145 mmol/L Potassium Level 3.6 mmol/L Chloride Level 105.0 mmol/L Carbon Dioxide Level 35.6 mmol/L Anion Gap 8.0 Blood Urea Nitrogen 18 mg/dL Creatinine 0.59 mg/dL Estimated GFR () 139.6 Est GFR (CKD-EPI)(Non-Afr Macedonian) 115.3 BUN/Creatinine Ratio 30.0 Glucose Level 129 mg/dL Calcium Level 8.7 mg/dL Total Bilirubin 0.6 mg/dL Aspartate Amino Transf (AST/SGOT) 37 U/L Alanine Aminotransferase (ALT/SGPT) 54 U/L Alkaline Phosphatase 78 U/L Total Protein 6.5 g/dL Albumin 2.2 g/dL Globulin 4.3 Albumin/Globulin Ratio 0.511 Test 05/11/21 06:03 05/11/21 08:10 05/11/21 12:16 05/11/21 15:51 Segmented Neutrophils 97 % Lymphocytes 1 % Monocytes 2 % Platelet Estimate ADEQUATE Platelet Morphology NORMAL Blood Gas Sample Site LEFT RADIAL ARTERY Blood Gas pH 7.399 Blood Gas PCO2 54.2 mmHg Blood Gas PO2 53.9 mmHg Blood Gas HCO3 32.7 mmol/L Blood Gas Base Excess 6.4 mmol/L Lucas Test POSITIVE Arterial Blood Oxygen Saturation 85.4 % Deoxyhemoglobin 14.5 % Carboxyhemoglobin 0.3 % Methemoglobin 0.2 % Total Hemoglobin 13.5 % Total Oxygen Concentration 16.1 % Blood Gas Temperature 37 Oxygen Delivery Method (LAB) VENTILATOR Blood Gas Vent Mode AC VC+ Blood Gas Vent Rate 26 FiO2 100 % Blood Gas Tidal Volume 320 ML Blood Gas PEEP 14.0 CMH2O Total Carbon Dioxide 34.4 mmol/L Bedside Glucose 114 Urine Collection Type CATH Urine Color YELLOW Urine Appearance CLEAR Urine Bilirubin SMALL Urine Ictotest NEGATIVE Urine Ketones NEGATIVE Urine Specific [place] >=1.030 Urine pH 6.0 Urine Protein TRACE Urine Urobilinogen >=8.0 E.U./dL Urine Nitrate NEGATIVE Urine Leukocyte Esterase NEGATIVE Urine Glucose (Auto)(UA) NEGATIVE Urine Blood NEGATIVE Urine RBC 0-2 RBC/HPF Urine WBC 2-5 WBC/HPF Urine Squamous Epithelial Cells FEW #/HPF Urine Bacteria RARE Test 05/11/21 18:13 05/12/21 03:04 05/12/21 05:00 05/12/21 05:10 Bedside Glucose 119 Blood Gas Sample Site RT RADIAL ARTERY RT RADIAL ARTERY Blood Gas pH 7.232 7.370 Blood Gas PCO2 103.1 mmHg 71.8 mmHg Blood Gas PO2 64.8 mmHg 58.0 mmHg Blood Gas HCO3 42.4 mmol/L 40.6 mmol/L Blood Gas Base Excess 10.7 mmol/L 11.8 mmol/L Lucas Test POSITIVE POSITIVE Arterial Blood Oxygen Saturation 86.7 % 84.5 % Deoxyhemoglobin 13.1 % 15.5 % Carboxyhemoglobin 0.8 % 0.2 % Methemoglobin 0.5 % 0.1 % Total Hemoglobin 13.2 % 13.7 % Total Oxygen Concentration 15.9 % 16.2 % Oxygen Delivery Method (LAB) VENTILATOR VENTILATOR Blood Gas Vent Mode AC+ AC+ Blood Gas Vent Rate 26 32 FiO2 100 % 100 % Blood Gas Tidal Volume 320 ML 320 ML Blood Gas PEEP 14.0 CMH2O 14.0 CMH2O Total Carbon Dioxide 45.6 mmol/L 42.8 mmol/L Blood Gas Temperature 37.0 White Blood Count 13.9 10^3/uL Red Blood Count 4.46 10^6/uL Hemoglobin 12.9 g/dL Hematocrit 41.6 % Mean Corpuscular Volume 93.3 fL Mean Corpuscular Hemoglobin 28.9 pg Mean Corpuscular Hemoglobin Concent 31.0 g/dL Red Cell Distribution Width 12.2 % Platelet Count 197 10^3/uL Mean Platelet Volume 11.1 fL Neutrophils (%) (Auto) 94.4 % Lymphocytes (%) (Auto) 3.0 % Monocytes (%) (Auto) 1.8 % Neutrophils # (Auto) 13.1 10^3/uL Lymphocytes # (Auto) 0.41 10^3/uL1 Monocytes # (Auto) 0.3 10^3/uL Absolute Immature Granulocyte (auto 0.10 10^3 u/L Absolute Eosinophils (auto) 0.0 10^3/uL Immature Granulocytes % 0.70 % Eosinophils % 0.1 % Basophils % 0.0 % Basophils # 0.0 10^3/uL Prothrombin Time 10.8 SEC Prothrombin Time INR (Non-Therap) 1.0 Activated Partial Thromboplast Time 24.7 SEC Sodium Level 148 mmol/L Potassium Level 3.7 mmol/L Chloride Level 105.0 mmol/L Carbon Dioxide Level 39.0 mmol/L Anion Gap 7.7 Blood Urea Nitrogen 22 mg/dL Creatinine 0.51 mg/dL Estimated GFR () 165.1 Est GFR (CKD-EPI)(Non-Afr Macedonian) 136.5 BUN/Creatinine Ratio 43.0 Glucose Level 156 mg/dL Hemoglobin A1c 6.5 % Calcium Level 8.7 mg/dL Phosphorus Level 4.3 mg/dL Magnesium Level 2.3 mg/dL Total Bilirubin 0.5 mg/dL Aspartate Amino Transf (AST/SGOT) 38 U/L Alanine Aminotransferase (ALT/SGPT) 60 U/L Alkaline Phosphatase 83 U/L Total Protein 6.7 g/dL Albumin 2.0 g/dL Globulin 4.7 Albumin/Globulin Ratio 0.425 Triglycerides Level 261 mg/dL Test 05/12/21 06:15 05/12/21 12:23 05/12/21 18:25 05/13/21 00:02 Differential Total Cells Counted 100 #CELLS Segmented Neutrophils 95 % Lymphocytes 3 % Monocytes 2 % Platelet Estimate ADEQUATE Platelet Morphology NORMAL Anisocytosis 1+ Bedside Glucose 132 110 170 Test 05/13/21 04:24 05/13/21 04:25 05/13/21 12:22 05/13/21 18:13 White Blood Count 13.3 10^3/uL Red Blood Count 4.23 10^6/uL Hemoglobin 12.6 g/dL Hematocrit 39.6 % Mean Corpuscular Volume 93.6 fL Mean Corpuscular Hemoglobin 29.8 pg Mean Corpuscular Hemoglobin Concent 31.8 g/dL Red Cell Distribution Width 12.1 % Platelet Count 204 10^3/uL Mean Platelet Volume 10.4 fL Neutrophils (%) (Auto) 95.0 % Lymphocytes (%) (Auto) 3.2 % Monocytes (%) (Auto) 1.5 % Neutrophils # (Auto) 12.7 10^3/uL Lymphocytes # (Auto) 0.43 10^3/uL1 Monocytes # (Auto) 0.2 10^3/uL Absolute Immature Granulocyte (auto 0.06 10^3 u/L Absolute Eosinophils (auto) 0.0 10^3/uL Immature Granulocytes % 0.50 % Eosinophils % 0.2 % Basophils % 0.1 % Basophils # 0.0 10^3/uL Sodium Level 147 mmol/L Potassium Level 4.0 mmol/L Chloride Level 105.0 mmol/L Carbon Dioxide Level 38.6 mmol/L Anion Gap 7.4 Blood Urea Nitrogen 20 mg/dL Creatinine 0.49 mg/dL Estimated GFR () 172.9 Est GFR (CKD-EPI)(Non-Afr Macedonian) 142.9 BUN/Creatinine Ratio 40.0 Glucose Level 165 mg/dL Calcium Level 8.5 mg/dL Phosphorus Level 2.5 mg/dL Magnesium Level 2.3 mg/dL Total Bilirubin 0.5 mg/dL Aspartate Amino Transf (AST/SGOT) 25 U/L Alanine Aminotransferase (ALT/SGPT) 48 U/L Alkaline Phosphatase 70 U/L Total Protein 6.6 g/dL Albumin 2.1 g/dL Globulin 4.5 Albumin/Globulin Ratio 0.466 Blood Gas Sample Site ART LINE Blood Gas pH 7.389 Blood Gas PCO2 61.8 mmHg Blood Gas PO2 52.5 mmHg Blood Gas HCO3 36.5 mmol/L Blood Gas Base Excess 9.3 mmol/L Arterial Blood Oxygen Saturation 84.4 % Deoxyhemoglobin 15.4 % Carboxyhemoglobin 0.6 % Methemoglobin 0.5 % Total Hemoglobin 13.0 % Total Oxygen Concentration 15.3 % Blood Gas Temperature 37.0 Oxygen Delivery Method (LAB) VENTILATOR Blood Gas Vent Mode AC+ Blood Gas Vent Rate 32 FiO2 100 % Blood Gas Tidal Volume 320 ML Blood Gas PEEP 14.0 CMH2O Total Carbon Dioxide 38.4 mmol/L Triglycerides Level 271 mg/dL Bedside Glucose 147 128 Test 05/14/21 04:30 05/14/21 04:35 05/14/21 12:00 05/14/21 12:10 White Blood Count 16.1 10^3/uL Red Blood Count 4.69 10^6/uL Hemoglobin 13.8 g/dL Hematocrit 44.3 % Mean Corpuscular Volume 94.5 fL Mean Corpuscular Hemoglobin 29.4 pg Mean Corpuscular Hemoglobin Concent 31.2 g/dL Red Cell Distribution Width 12.2 % Platelet Count 253 10^3/uL Mean Platelet Volume 10.9 fL Sodium Level 146 mmol/L Potassium Level 4.1 mmol/L Chloride Level 104.0 mmol/L Carbon Dioxide Level 39.8 mmol/L Anion Gap 6.3 Blood Urea Nitrogen 24 mg/dL Creatinine 0.54 mg/dL Estimated GFR () 154.6 Est GFR (CKD-EPI)(Non-Afr [place]onian) 127.7 BUN/Creatinine Ratio 44.0 Glucose Level 131 mg/dL Calcium Level 8.8 mg/dL Total Bilirubin 0.5 mg/dL Aspartate Amino Transf (AST/SGOT) 28 U/L Alanine Aminotransferase (ALT/SGPT) 45 U/L Alkaline Phosphatase 67 U/L Total Protein 7.1 g/dL Albumin 2.4 g/dL Globulin 4.7 Albumin/Globulin Ratio 0.510 Triglycerides Level 314 mg/dL Blood Gas Sample Site ART LINE Blood Gas pH 7.280 Blood Gas PCO2 84.0 mmHg Blood Gas PO2 60.1 mmHg Blood Gas HCO3 38.6 mmol/L Blood Gas Base Excess 8.4 mmol/L Lucas Test N/A Arterial Blood Oxygen Saturation 88.1 % Deoxyhemoglobin 11.8 % Carboxyhemoglobin 0.4 % Methemoglobin 0.3 % Total Hemoglobin 14.0 % Total Oxygen Concentration 17.2 % Blood Gas Temperature 37 Oxygen Delivery Method (LAB) VENT Blood Gas Vent Mode AC/VC Blood Gas Vent Rate 35 FiO2 100 % Blood Gas Tidal Volume 320 ML Blood Gas PEEP 16 CMH2O Total Carbon Dioxide 41.2 mmol/L Bedside Glucose 151 Urine Collection Type UNKNOWN Urine Color YELLOW Urine Appearance CLEAR Urine Bilirubin SMALL Urine Ictotest POSITIVE Urine Ketones 15 mg/dL Urine Specific [place] >=1.030 Urine pH 5.5 Urine Protein NEGATIVE Urine Urobilinogen 2.0 E.U./dL Urine Nitrate NEGATIVE Urine Leukocyte Esterase NEGATIVE Urine Glucose (Auto)(UA) NEGATIVE Urine Blood NEGATIVE Nasal Adenovirus (PCR) NotDetected Nasal Coronavirus Type 229E (PCR) NotDetected Nasal Coronavirus Type HKU1 (PCR) NotDetected Nasal Coronavirus Type NL63 (PCR) NotDetected Nasal Coronavirus Type OC43 (PCR) NotDetected Nasal Enterovirus/Rhinovirus (PCR) NotDetected Nasal Influenza Type A (H1) (PCR) NotDetected Nasal Influenza Type A (H3) (PCR) NotDetected Nasal Swab Influenza Virus B (PCR) NotDetected Nasal Parainfluenza Type 1 (PCR) NotDetected Nasal Parainfluenza Type 2 (PCR) NotDetected Nasal Parainfluenza Type 3 (PCR) NotDetected Nasal Parainfluenza Type 4 (PCR) NotDetected Nasal Resp Syncytial Virus (PCR) NotDetected Nasal Bordetella pertussis DNA (PCR NotDetected Nasal Chlamydophila pneumoniae (PCR NotDetected Nasal Human Metapneumovirus (PCR) NotDetected Nasal Mycoplasma pneumoniae (PCR) NotDetected Nasal SARS-CoV-2 (PCR) DETECTED Influenza Type A (H1N1/09) (PCR) NotDetected Test 05/14/21 14:00 05/14/21 18:09 05/15/21 00:00 05/15/21 05:25 Blood Gas Sample Site ART LINE Blood Gas pH 7.386 Blood Gas PCO2 61.1 mmHg Blood Gas PO2 51.9 mmHg Blood Gas HCO3 35.8 mmol/L Blood Gas Base Excess 8.5 mmol/L Lucas Test N/A Arterial Blood Oxygen Saturation 86.5 % Deoxyhemoglobin 13.4 % Carboxyhemoglobin 0.5 % Methemoglobin 0.0 % Total Hemoglobin 14.1 % Total Oxygen Concentration 17.0 % Blood Gas Temperature 37.0 Oxygen Delivery Method (LAB) VENT Blood Gas Vent Mode AC Blood Gas Vent Rate 35 FiO2 100 % Blood Gas Tidal Volume 320 ML Blood Gas PEEP 16.0 CMH2O Total Carbon Dioxide 37.7 mmol/L Bedside Glucose 134 194 White Blood Count 12.1 10^3/uL Red Blood Count 4.22 10^6/uL Hemoglobin 12.3 g/dL Hematocrit 40.1 % Mean Corpuscular Volume 95.0 fL Mean Corpuscular Hemoglobin 29.1 pg Mean Corpuscular Hemoglobin Concent 30.7 g/dL Red Cell Distribution Width 12.8 % Platelet Count 219 10^3/uL Mean Platelet Volume 10.5 fL Neutrophils (%) (Auto) 79.6 % Lymphocytes (%) (Auto) 13.3 % Monocytes (%) (Auto) 4.4 % Neutrophils # (Auto) 9.6 10^3/uL Lymphocytes # (Auto) 1.61 10^3/uL1 Monocytes # (Auto) 0.5 10^3/uL Absolute Immature Granulocyte (auto 0.09 10^3 u/L Absolute Eosinophils (auto) 0.3 10^3/uL Immature Granulocytes % 0.70 % Eosinophils % 2.6 % Basophils % 0.1 % Basophils # 0.0 10^3/uL Sodium Level 144 mmol/L Potassium Level 3.7 mmol/L Chloride Level 105.0 mmol/L Carbon Dioxide Level 37.2 mmol/L Anion Gap 5.5 Blood Urea Nitrogen 31 mg/dL Creatinine 0.52 mg/dL Estimated GFR () 161.4 Est GFR (CKD-EPI)(Non-Afr Macedonian) 133.4 BUN/Creatinine Ratio 59.0 Glucose Level 165 mg/dL Calcium Level 8.4 mg/dL Total Bilirubin 0.5 mg/dL Aspartate Amino Transf (AST/SGOT) 28 U/L Alanine Aminotransferase (ALT/SGPT) 39 U/L Alkaline Phosphatase 53 U/L Total Protein 6.5 g/dL Albumin 2.2 g/dL Globulin 4.3 Albumin/Globulin Ratio 0.511 Procalcitonin 0.17 ng/mL Test 05/15/21 05:42 05/15/21 08:18 05/15/21 12:10 05/15/21 17:48 Blood Gas Sample Site ART LINE JUAN Blood Gas pH 7.360 7.320 Blood Gas PCO2 73.1 mmHg 65.0 mmHg Blood Gas PO2 mmHg 59.7 mmHg Blood Gas HCO3 40.4 mmol/L 32.7 mmol/L Blood Gas Base Excess 11.9 mmol/L 4.8 mmol/L Lucas Test N/A POSITIVE Arterial Blood Oxygen Saturation 89.6 % 88.4 % Deoxyhemoglobin 10.3 % 11.5 % Carboxyhemoglobin 1.0 % 0.4 % Methemoglobin 0.3 % 0.2 % Total Hemoglobin 13.1 % 13.1 % Total Oxygen Concentration 16.1 % 16.2 % Oxygen Delivery Method (LAB) VENT FiO2 100 % 100 % Blood Gas PEEP 16.0 CMH2O 16 CMH2O Total Carbon Dioxide 42.6 mmol/L 34.7 mmol/L Blood Gas Vent Mode A/C Blood Gas Vent Rate 35 Blood Gas Tidal Volume 320 ML Bedside Glucose 212 159 Test 05/15/21 23:51 05/16/21 00:00 05/16/21 04:29 05/16/21 04:48 Vancomycin Level Trough 3.7 ug/mL Bedside Glucose 163 Blood Gas Sample Site ART LINE Blood Gas pH 7.325 Blood Gas PCO2 82.9 mmHg Blood Gas PO2 60.7 mmHg Blood Gas HCO3 42.2 mmol/L Blood Gas Base Excess 13.0 mmol/L Lucas Test N/A Arterial Blood Oxygen Saturation 89.7 % Deoxyhemoglobin 10.2 % Carboxyhemoglobin 0.9 % Methemoglobin 0.4 % Total Hemoglobin 11.7 % Total Oxygen Concentration 14.6 % Blood Gas Temperature 37.0 Oxygen Delivery Method (LAB) VENTILATOR Blood Gas Vent Mode AC+ Blood Gas Vent Rate 35 FiO2 100 % Blood Gas Tidal Volume 320 ML Blood Gas PEEP 16.0 CMH2O Total Carbon Dioxide 44.8 mmol/L White Blood Count 10.9 10^3/uL Red Blood Count 3.71 10^6/uL Hemoglobin 11.0 g/dL Hematocrit 35.3 % Mean Corpuscular Volume 95.1 fL Mean Corpuscular Hemoglobin 29.6 pg Mean Corpuscular Hemoglobin Concent 31.2 g/dL Red Cell Distribution Width 12.2 % Platelet Count 173 10^3/uL Mean Platelet Volume 10.8 fL Neutrophils (%) (Auto) 78.7 % Lymphocytes (%) (Auto) 13.2 % Monocytes (%) (Auto) 3.9 % Neutrophils # (Auto) 8.6 10^3/uL Lymphocytes # (Auto) 1.44 10^3/uL1 Monocytes # (Auto) 0.4 10^3/uL Absolute Immature Granulocyte (auto 0.06 10^3 u/L Absolute Eosinophils (auto) 0.5 10^3/uL Immature Granulocytes % 0.60 % Eosinophils % 4.1 % Basophils % 0.1 % Basophils # 0.0 10^3/uL Erythrocyte Sedimentation Rate 70 mm/hr D-Dimer 1.80 mg/L Sodium Level 145 mmol/L Potassium Level 3.2 mmol/L Chloride Level 106.0 mmol/L Carbon Dioxide Level 38.9 mmol/L Anion Gap 3.3 Blood Urea Nitrogen 21 mg/dL Creatinine 0.35 mg/dL Estimated GFR () 254.9 Est GFR (CKD-EPI)(Non-Afr [place]onian) 210.7 BUN/Creatinine Ratio 60.0 Glucose Level 172 mg/dL Calcium Level 8.1 mg/dL Total Bilirubin 0.3 mg/dL Aspartate Amino Transf (AST/SGOT) 38 U/L Alanine Aminotransferase (ALT/SGPT) 33 U/L Alkaline Phosphatase 41 U/L Lactate Dehydrogenase 260 U/L C-Reactive Protein 3.48 mg/dL Total Protein 5.8 g/dL Albumin 2.0 g/dL Globulin 3.8 Albumin/Globulin Ratio 0.526 HIV (1&2) Antibody Screen NON-REACTIVE Test 05/16/21 17:43 05/17/21 00:47 05/17/21 05:19 05/17/21 05:25 Bedside Glucose 191 170 Blood Gas Sample Site ART LINE Blood Gas pH 7.328 Blood Gas PCO2 75.8 mmHg Blood Gas PO2 77.7 mmHg Blood Gas HCO3 38.9 mmol/L Blood Gas Base Excess 10.4 mmol/L Lucas Test N/A Arterial Blood Oxygen Saturation 94.2 % Deoxyhemoglobin 5.8 % Carboxyhemoglobin 0.3 % Methemoglobin 0.4 % Total Hemoglobin 11.4 % Total Oxygen Concentration 15.1 % Blood Gas Temperature 37.0 Oxygen Delivery Method (LAB) VENTILATOR Blood Gas Vent Mode AC+ Blood Gas Vent Rate 35 FiO2 100 % Blood Gas Tidal Volume 320 ML Blood Gas PEEP 16.0 CMH2O Total Carbon Dioxide 41.2 mmol/L White Blood Count 12.4 10^3/uL Red Blood Count 3.56 10^6/uL Hemoglobin 10.5 g/dL Hematocrit 33.9 % Mean Corpuscular Volume 95.2 fL Mean Corpuscular Hemoglobin 29.5 pg Mean Corpuscular Hemoglobin Concent 31.0 g/dL Red Cell Distribution Width 12.3 % Platelet Count 191 10^3/uL Mean Platelet Volume 10.8 fL Neutrophils (%) (Auto) 74.8 % Lymphocytes (%) (Auto) 16.8 % Monocytes (%) (Auto) 3.8 % Neutrophils # (Auto) 9.3 10^3/uL Lymphocytes # (Auto) 2.08 10^3/uL1 Monocytes # (Auto) 0.5 10^3/uL Absolute Immature Granulocyte (auto 0.09 10^3 u/L Absolute Eosinophils (auto) 0.6 10^3/uL Immature Granulocytes % 0.70 % Eosinophils % 4.4 % Basophils % 0.2 % Basophils # 0.0 10^3/uL Sodium Level 146 mmol/L Potassium Level 2.9 mmol/L Chloride Level 105.0 mmol/L Carbon Dioxide Level 38.7 mmol/L Anion Gap 5.2 Blood Urea Nitrogen 13 mg/dL Creatinine 0.29 mg/dL Estimated GFR () 316.7 Est GFR (CKD-EPI)(Non-Afr [place]onian) 261.8 BUN/Creatinine Ratio 44.0 Glucose Level 198 mg/dL Calcium Level 8.1 mg/dL Magnesium Level 1.6 mg/dL Total Bilirubin 0.3 mg/dL Aspartate Amino Transf (AST/SGOT) 29 U/L Alanine Aminotransferase (ALT/SGPT) 30 U/L Alkaline Phosphatase 50 U/L Pro-B-Type Natriuretic Peptide 227 pg/mL Total Protein 5.6 g/dL Albumin 1.9 g/dL Globulin 3.7 Albumin/Globulin Ratio 0.513 Procalcitonin 0.13 ng/mL Test 05/17/21 08:45 05/17/21 13:12 05/17/21 13:48 05/17/21 18:04 Vancomycin Level Trough 9.6 ug/mL Bedside Glucose 224 183 Nasal Adenovirus (PCR) NotDetected Nasal Coronavirus Type 229E (PCR) NotDetected Nasal Coronavirus Type HKU1 (PCR) NotDetected Nasal Coronavirus Type NL63 (PCR) NotDetected Nasal Coronavirus Type OC43 (PCR) NotDetected Nasal Enterovirus/Rhinovirus (PCR) NotDetected Nasal Influenza Type A (H1) (PCR) NotDetected Nasal Influenza Type A (H3) (PCR) NotDetected Nasal Swab Influenza Virus B (PCR) NotDetected Nasal Parainfluenza Type 1 (PCR) NotDetected Nasal Parainfluenza Type 2 (PCR) NotDetected Nasal Parainfluenza Type 3 (PCR) NotDetected Nasal Parainfluenza Type 4 (PCR) NotDetected Nasal Resp Syncytial Virus (PCR) NotDetected Nasal Bordetella pertussis DNA (PCR NotDetected Nasal Chlamydophila pneumoniae (PCR NotDetected Nasal Human Metapneumovirus (PCR) NotDetected Nasal Mycoplasma pneumoniae (PCR) NotDetected Nasal SARS-CoV-2 (PCR) DETECTED Influenza Type A (H1N1/09) (PCR) NotDetected Test 05/18/21 04:19 05/18/21 05:20 05/18/21 08:20 05/18/21 18:12 Bedside Glucose 177 220 Blood Gas Sample Site ART LINE Blood Gas pH 7.327 Blood Gas PCO2 65.3 mmHg Blood Gas PO2 56.0 mmHg Blood Gas HCO3 33.4 mmol/L Blood Gas Base Excess 6.0 mmol/L Lucas Test N/A Arterial Blood Oxygen Saturation 88.0 % Deoxyhemoglobin 11.9 % Carboxyhemoglobin 0.5 % Methemoglobin 0.3 % Total Hemoglobin 10.2 % Total Oxygen Concentration 12.6 % Blood Gas Temperature 37.0 Oxygen Delivery Method (LAB) VENTILATOR Blood Gas Vent Mode AC+ Blood Gas Vent Rate 35 FiO2 100 % Blood Gas Tidal Volume 320 ML Blood Gas PEEP 16.0 CMH2O Total Carbon Dioxide 35.4 mmol/L White Blood Count 15.6 10^3/uL Red Blood Count 3.65 10^6/uL Hemoglobin 10.6 g/dL Hematocrit 34.9 % Mean Corpuscular Volume 95.6 fL Mean Corpuscular Hemoglobin 29.0 pg Mean Corpuscular Hemoglobin Concent 30.4 g/dL Red Cell Distribution Width 12.6 % Platelet Count 202 10^3/uL Mean Platelet Volume 10.7 fL Neutrophils (%) (Auto) 78.5 % Lymphocytes (%) (Auto) 14.1 % Monocytes (%) (Auto) 2.3 % Neutrophils # (Auto) 12.2 10^3/uL Lymphocytes # (Auto) 2.19 10^3/uL1 Monocytes # (Auto) 0.4 10^3/uL Absolute Immature Granulocyte (auto 0.34 10^3 u/L Absolute Eosinophils (auto) 0.4 10^3/uL Immature Granulocytes % 2.20 % Eosinophils % 2.8 % Basophils % 0.1 % Basophils # 0.0 10^3/uL Sodium Level 143 mmol/L Potassium Level 3.0 mmol/L Chloride Level 104.0 mmol/L Carbon Dioxide Level 37.8 mmol/L Anion Gap 4.2 Blood Urea Nitrogen 18 mg/dL Creatinine 0.30 mg/dL Estimated GFR () 304.6 Est GFR (CKD-EPI)(Non-Afr [place]) 251.7 BUN/Creatinine Ratio 60.0 Glucose Level 216 mg/dL Calcium Level 8.2 mg/dL Magnesium Level 1.8 mg/dL Total Bilirubin 0.6 mg/dL Aspartate Amino Transf (AST/SGOT) 36 U/L Alanine Aminotransferase (ALT/SGPT) 39 U/L Alkaline Phosphatase 70 U/L Total Protein 6.3 g/dL Albumin 2.0 g/dL Globulin 4.3 Albumin/Globulin Ratio 0.465 Vancomycin Level Trough 14.0 ug/mL Test 05/18/21 22:00 05/19/21 01:17 05/19/21 04:20 05/19/21 14:06 Total Creatine Kinase 181 U/L Creatine Kinase MB 1.4 ng/mL Troponin I 0.11 ng/mL Pro-B-Type Natriuretic Peptide 1249 pg/mL Bedside Glucose 168 262 White Blood Count 8.9 10^3/uL Red Blood Count 2.98 10^6/uL Hemoglobin 8.8 g/dL Hematocrit 28.6 % Mean Corpuscular Volume 96.0 fL Mean Corpuscular Hemoglobin 29.5 pg Mean Corpuscular Hemoglobin Concent 30.8 g/dL Red Cell Distribution Width 13.1 % Platelet Count 143 10^3/uL Mean Platelet Volume 11.4 fL Neutrophils (%) (Auto) 77.4 % Lymphocytes (%) (Auto) 14.3 % Monocytes (%) (Auto) 3.1 % Neutrophils # (Auto) 6.9 10^3/uL Lymphocytes # (Auto) 1.28 10^3/uL1 Monocytes # (Auto) 0.3 10^3/uL Absolute Immature Granulocyte (auto 0.28 10^3 u/L Absolute Eosinophils (auto) 0.2 10^3/uL Immature Granulocytes % 3.10 % Eosinophils % 1.9 % Basophils % 0.2 % Basophils # 0.0 10^3/uL Sodium Level 142 mmol/L Potassium Level 3.8 mmol/L Chloride Level 108.0 mmol/L Carbon Dioxide Level 32.4 mmol/L Anion Gap 5.4 Blood Urea Nitrogen 22 mg/dL Creatinine 0.48 mg/dL Estimated GFR () 177.1 Est GFR (CKD-EPI)(Non-Afr [place]) 146.3 BUN/Creatinine Ratio 45.0 Glucose Level 214 mg/dL Calcium Level 8.1 mg/dL Phosphorus Level 1.0 mg/dL Magnesium Level 2.0 mg/dL Total Bilirubin 0.3 mg/dL Aspartate Amino Transf (AST/SGOT) 38 U/L Alanine Aminotransferase (ALT/SGPT) 57 U/L Alkaline Phosphatase 72 U/L Total Protein 5.5 g/dL Albumin 1.8 g/dL Globulin 3.7 Albumin/Globulin Ratio 0.486 Test 05/19/21 16:20 05/19/21 17:39 05/19/21 23:08 05/20/21 04:29 Vancomycin Level Trough 22.7 ug/mL Bedside Glucose 238 114 White Blood Count 8.3 10^3/uL Red Blood Count 2.80 10^6/uL Hemoglobin 8.2 g/dL Hematocrit 27.4 % Mean Corpuscular Volume 97.9 fL Mean Corpuscular Hemoglobin 29.3 pg Mean Corpuscular Hemoglobin Concent 29.9 g/dL Red Cell Distribution Width 13.9 % Platelet Count 179 10^3/uL Mean Platelet Volume 11.7 fL Neutrophils (%) (Auto) 76.9 % Lymphocytes (%) (Auto) 12.7 % Monocytes (%) (Auto) 4.2 % Neutrophils # (Auto) 6.4 10^3/uL Lymphocytes # (Auto) 1.06 10^3/uL1 Monocytes # (Auto) 0.4 10^3/uL Absolute Immature Granulocyte (auto 0.41 10^3 u/L Absolute Eosinophils (auto) 0.1 10^3/uL Immature Granulocytes % 4.90 % Eosinophils % 1.1 % Basophils % 0.2 % Basophils # 0.0 10^3/uL Sodium Level 144 mmol/L Potassium Level 4.1 mmol/L Chloride Level 110.0 mmol/L Carbon Dioxide Level 32.1 mmol/L Anion Gap 6.0 Blood Urea Nitrogen 29 mg/dL Creatinine 0.56 mg/dL Estimated GFR () 148.2 Est GFR (CKD-EPI)(Non-Afr [place]) 122.5 BUN/Creatinine Ratio 51.0 Glucose Level 163 mg/dL Calcium Level 8.1 mg/dL Phosphorus Level 3.0 mg/dL Magnesium Level 1.9 mg/dL Total Bilirubin 0.4 mg/dL Aspartate Amino Transf (AST/SGOT) 28 U/L Alanine Aminotransferase (ALT/SGPT) 44 U/L Alkaline Phosphatase 76 U/L Total Protein 5.4 g/dL Albumin 1.7 g/dL Globulin 3.7 Albumin/Globulin Ratio 0.459 Test 05/20/21 04:59 05/20/21 12:14 05/20/21 12:40 05/20/21 17:08 Blood Gas Sample Site ART LINE JUAN Blood Gas pH 7.221 7.342 Blood Gas PCO2 75.6 mmHg 58.2 mmHg Blood Gas PO2 83.2 mmHg 43.1 mmHg Blood Gas HCO3 30.3 mmol/L 30.8 mmol/L Blood Gas Base Excess 1.5 mmol/L 4.1 mmol/L Lucas Test N/A N/A Arterial Blood Oxygen Saturation 94.6 % 80.2 % Deoxyhemoglobin 5.4 % 19.6 % Carboxyhemoglobin 0.3 % 0.8 % Methemoglobin 0.2 % 0.4 % Total Hemoglobin 9.4 % 10.0 % Total Oxygen Concentration 12.6 % 11.1 % Blood Gas Temperature 37.0 37 Oxygen Delivery Method (LAB) VENTILATOR VENT Blood Gas Vent Mode AC+ AC Blood Gas Vent Rate 35 35 FiO2 100 % 80 % Blood Gas Tidal Volume 320 ML 350 ML Blood Gas PEEP 16.0 CMH2O 16 CMH2O Total Carbon Dioxide 32.6 mmol/L 32.6 mmol/L Bedside Glucose 157 248 Test 05/20/21 23:40 05/21/21 04:42 05/21/21 05:10 05/21/21 08:41 Bedside Glucose 187 White Blood Count 12.0 10^3/uL Red Blood Count 2.95 10^6/uL Hemoglobin 8.9 g/dL Hematocrit 28.6 % Mean Corpuscular Volume 96.9 fL Mean Corpuscular Hemoglobin 30.2 pg Mean Corpuscular Hemoglobin Concent 31.1 g/dL Red Cell Distribution Width 14.2 % Platelet Count 241 10^3/uL Mean Platelet Volume 11.2 fL Sodium Level 144 mmol/L Potassium Level 3.8 mmol/L Chloride Level 109.0 mmol/L Carbon Dioxide Level 32.2 mmol/L Anion Gap 6.6 Blood Urea Nitrogen 32 mg/dL Creatinine 0.56 mg/dL Estimated GFR () 148.2 Est GFR (CKD-EPI)(Non-Afr [place]) 122.5 BUN/Creatinine Ratio 57.0 Glucose Level 193 mg/dL Calcium Level 8.4 mg/dL Total Bilirubin 0.3 mg/dL Aspartate Amino Transf (AST/SGOT) 27 U/L Alanine Aminotransferase (ALT/SGPT) 43 U/L Alkaline Phosphatase 102 U/L Total Protein 5.9 g/dL Albumin 1.8 g/dL Globulin 4.1 Albumin/Globulin Ratio 0.439 Triglycerides Level 164 mg/dL Blood Gas Sample Site ART LINE Blood Gas pH 7.255 Blood Gas PCO2 72.2 mmHg Blood Gas PO2 61.5 mmHg Blood Gas HCO3 31.3 mmol/L Blood Gas Base Excess 3.0 mmol/L Lucas Test POSITIVE Arterial Blood Oxygen Saturation 88.4 % Deoxyhemoglobin 11.4 % Carboxyhemoglobin 0.8 % Methemoglobin 0.5 % Total Hemoglobin 9.5 % Total Oxygen Concentration 11.7 % Blood Gas Temperature 37 Oxygen Delivery Method (LAB) VENT Blood Gas Vent Mode AC Blood Gas Vent Rate 35 FiO2 90 % Blood Gas Tidal Volume 320 ML Blood Gas PEEP 16 CMH2O Total Carbon Dioxide 33.5 mmol/L Vancomycin Level Trough 19.1 ug/mL Test 05/21/21 10:48 05/21/21 16:14 05/22/21 04:37 05/22/21 05:30 Bedside Glucose 157 181 White Blood Count 14.0 10^3/uL Red Blood Count 2.93 10^6/uL Hemoglobin 8.7 g/dL Hematocrit 28.6 % Mean Corpuscular Volume 97.6 fL Mean Corpuscular Hemoglobin 29.7 pg Mean Corpuscular Hemoglobin Concent 30.4 g/dL Red Cell Distribution Width 15.5 % Platelet Count 280 10^3/uL Mean Platelet Volume 10.4 fL Neutrophils (%) (Auto) 83.8 % Lymphocytes (%) (Auto) 10.8 % Monocytes (%) (Auto) 2.8 % Neutrophils # (Auto) 11.8 10^3/uL Lymphocytes # (Auto) 1.52 10^3/uL1 Monocytes # (Auto) 0.4 10^3/uL Absolute Immature Granulocyte (auto 0.94 10^3 u/L Absolute Eosinophils (auto) 0.4 10^3/uL Immature Granulocytes % 6.70 % Eosinophils % 2.5 % Basophils % 0.1 % Basophils # 0.0 10^3/uL Sodium Level 145 mmol/L Potassium Level 3.6 mmol/L Chloride Level 107.0 mmol/L Carbon Dioxide Level 31.1 mmol/L Anion Gap 10.5 Blood Urea Nitrogen 31 mg/dL Creatinine 0.60 mg/dL Estimated GFR () 136.9 Est GFR (CKD-EPI)(Non-Afr [place]) 113.1 BUN/Creatinine Ratio 51.0 Glucose Level 197 mg/dL Calcium Level 8.4 mg/dL Total Bilirubin 0.7 mg/dL Aspartate Amino Transf (AST/SGOT) 47 U/L Alanine Aminotransferase (ALT/SGPT) 73 U/L Alkaline Phosphatase 137 U/L Total Protein 6.4 g/dL Albumin 1.7 g/dL Globulin 4.7 Albumin/Globulin Ratio 0.361 Blood Gas Sample Site ART LINE Blood Gas pH 7.256 Blood Gas PCO2 72.3 mmHg Blood Gas PO2 62.0 mmHg Blood Gas HCO3 31.4 mmol/L Blood Gas Base Excess 3.2 mmol/L Lucas Test N/A Arterial Blood Oxygen Saturation 89.0 % Deoxyhemoglobin 10.8 % Carboxyhemoglobin 1.2 % Methemoglobin 0.6 % Total Hemoglobin 9.2 % Total Oxygen Concentration 11.4 % FiO2 90 % Blood Gas PEEP 16.0 CMH2O Total Carbon Dioxide 33.6 mmol/L Test 05/22/21 11:02 05/22/21 11:55 05/22/21 16:24 05/22/21 23:11 Bedside Glucose 169 234 273 Blood Gas Sample Site ART LINE Blood Gas pH 7.270 Blood Gas PCO2 72.2 mmHg Blood Gas PO2 50.3 mmHg Blood Gas HCO3 32.4 mmol/L Blood Gas Base Excess 4.1 mmol/L Lucas Test N/A Arterial Blood Oxygen Saturation 82.4 % Deoxyhemoglobin 17.5 % Carboxyhemoglobin 0.5 % Methemoglobin 0.2 % Total Hemoglobin 10.0 % Total Oxygen Concentration 11.5 % Oxygen Delivery Method (LAB) MV Blood Gas Vent Mode ACPC 26 Blood Gas Vent Rate 35 FiO2 100 % Blood Gas PEEP 16 CMH2O Total Carbon Dioxide 34.6 mmol/L Test 05/23/21 04:21 05/23/21 04:23 05/23/21 05:16 05/23/21 08:58 Blood Gas Sample Site ART LINE Blood Gas pH 7.265 Blood Gas PCO2 69.0 mmHg Blood Gas PO2 69.4 mmHg Blood Gas HCO3 30.6 mmol/L Blood Gas Base Excess 2.7 mmol/L Lucas Test N/A Arterial Blood Oxygen Saturation 91.6 % Deoxyhemoglobin 8.3 % Carboxyhemoglobin 1.4 % Methemoglobin 0.3 % Total Hemoglobin 9.0 % Total Oxygen Concentration 11.5 % Blood Gas Temperature 37.0 Oxygen Delivery Method (LAB) VENT Blood Gas Vent Mode PRVC Blood Gas Vent Rate 35 FiO2 100 % Blood Gas PEEP 18.0 CMH2O Total Carbon Dioxide 32.7 mmol/L White Blood Count 13.6 10^3/uL Red Blood Count 2.81 10^6/uL Hemoglobin 8.4 g/dL Hematocrit 27.2 % Mean Corpuscular Volume 96.8 fL Mean Corpuscular Hemoglobin 29.9 pg Mean Corpuscular Hemoglobin Concent 30.9 g/dL Red Cell Distribution Width 14.9 % Platelet Count 301 10^3/uL Mean Platelet Volume 10.4 fL Neutrophils (%) (Auto) 90.8 % Lymphocytes (%) (Auto) 7.3 % Monocytes (%) (Auto) 1.7 % Neutrophils # (Auto) 12.4 10^3/uL Lymphocytes # (Auto) 0.99 10^3/uL1 Monocytes # (Auto) 0.2 10^3/uL Absolute Immature Granulocyte (auto 0.71 10^3 u/L Absolute Eosinophils (auto) 0.0 10^3/uL Immature Granulocytes % 5.20 % Eosinophils % 0.1 % Basophils % 0.1 % Basophils # 0.0 10^3/uL Sodium Level 145 mmol/L Potassium Level 3.4 mmol/L Chloride Level 107.0 mmol/L Carbon Dioxide Level 31.4 mmol/L Anion Gap 10.0 Blood Urea Nitrogen 29 mg/dL Creatinine 0.59 mg/dL Estimated GFR () 139.6 Est GFR (CKD-EPI)(Non-Afr [place]onian) 115.3 BUN/Creatinine Ratio 49.0 Glucose Level 297 mg/dL Calcium Level 8.7 mg/dL Total Bilirubin 0.5 mg/dL Aspartate Amino Transf (AST/SGOT) 30 U/L Alanine Aminotransferase (ALT/SGPT) 45 U/L Alkaline Phosphatase 112 U/L Total Protein 6.3 g/dL Albumin 1.8 g/dL Globulin 4.5 Albumin/Globulin Ratio 0.400 Differential Total Cells Counted 100 #CELLS Segmented Neutrophils 90 % Band Neutrophils 1 % Lymphocytes 8 % Metamyelocytes 1 % Differential Comment NORMAL Platelet Estimate ADEQUATE Platelet Morphology NORMAL Triglycerides Level 159 mg/dL Vancomycin Level Trough 16.2 ug/mL Test 05/23/21 11:09 05/23/21 15:35 05/23/21 16:08 05/23/21 21:18 Bedside Glucose 267 291 314 Blood Gas Sample Site JUAN Blood Gas pH 7.044 Blood Gas PCO2 135.7 mmHg Blood Gas PO2 83.3 mmHg Blood Gas HCO3 36.2 mmol/L Blood Gas Base Excess 3.4 mmol/L Lucas Test N/A Arterial Blood Oxygen Saturation 92.2 % Deoxyhemoglobin 7.7 % Carboxyhemoglobin 1.0 % Methemoglobin 0.6 % Total Hemoglobin 9.4 % Total Oxygen Concentration 12.1 % Blood Gas Temperature 37.0 Oxygen Delivery Method (LAB) VENT Blood Gas Vent Mode AC/PC Pi26/Ti 0.80 Blood Gas Vent Rate 35 FiO2 100 % Blood Gas PEEP 18.0 CMH2O Total Carbon Dioxide 40.4 mmol/L Test 05/24/21 05:00 05/24/21 06:22 White Blood Count 18.2 10^3/uL Red Blood Count 2.75 10^6/uL Hemoglobin 8.2 g/dL Hematocrit 27.4 % Mean Corpuscular Volume 99.6 fL Mean Corpuscular Hemoglobin 29.8 pg Mean Corpuscular Hemoglobin Concent 29.9 g/dL Red Cell Distribution Width 15.4 % Platelet Count 418 10^3/uL Mean Platelet Volume 10.3 fL Neutrophils (%) (Auto) 89.1 % Lymphocytes (%) (Auto) 6.9 % Monocytes (%) (Auto) 3.9 % Neutrophils # (Auto) 16.2 10^3/uL Lymphocytes # (Auto) 1.26 10^3/uL1 Monocytes # (Auto) 0.7 10^3/uL Absolute Immature Granulocyte (auto 1.17 10^3 u/L Absolute Eosinophils (auto) 0.0 10^3/uL Immature Granulocytes % 6.40 % Eosinophils % 0.0 % Basophils % 0.1 % Basophils # 0.0 10^3/uL Blood Gas Sample Site ART LINE Blood Gas pH 7.232 Blood Gas PCO2 86.5 mmHg Blood Gas PO2 113.7 mmHg Blood Gas HCO3 35.6 mmol/L Blood Gas Base Excess 6.5 mmol/L Lucas Test N/A Arterial Blood Oxygen Saturation 97.5 % Deoxyhemoglobin 2.5 % Carboxyhemoglobin 0.9 % Methemoglobin 0.6 % Total Hemoglobin 8.7 % Total Oxygen Concentration 12.0 % Blood Gas Temperature 37.0 Oxygen Delivery Method (LAB) VENT Blood Gas Vent Mode PCV Blood Gas Vent Rate 35 FiO2 100 % Blood Gas PEEP 18.0 CMH2O Sodium Level 148 mmol/L Potassium Level 3.3 mmol/L Chloride Level 110.0 mmol/L Carbon Dioxide Level 36.1 mmol/L Total Carbon Dioxide 38.2 mmol/L Anion Gap 5.2 Blood Urea Nitrogen 36 mg/dL Creatinine 0.67 mg/dL Estimated GFR () 120.5 Est GFR (CKD-EPI)(Non-Afr [place]onian) 99.6 BUN/Creatinine Ratio 53.0 Glucose Level 289 mg/dL Calcium Level 8.7 mg/dL Total Bilirubin 0.5 mg/dL Aspartate Amino Transf (AST/SGOT) 27 U/L Alanine Aminotransferase (ALT/SGPT) 54 U/L Alkaline Phosphatase 116 U/L Total Protein 6.0 g/dL Albumin 1.7 g/dL Globulin 4.3 Albumin/Globulin Ratio 0.395 Segmented Neutrophils 87 % Lymphocytes 9 % Monocytes 4 % Platelet Estimate SLIGHTLY INCREASED Platelet Morphology NORMAL Current Medications Medications (Trade) Dose Ordered Sig/Davon Route PRN Reason Start Time Stop Time Status Last Admin Dose Admin Remdesivir 200 mg/ Sodium Chloride 140 ml @ 120.69 mls/ hr OT STAT IV 04/28/21 19:53 04/29/21 08:10 DC 04/28/21 19:53 Remdesivir 100 mg/ Sodium Chloride 120 ml @ 111.111 mls/hr Q24HRS IV 04/29/21 20:00 05/02/21 21:05 DC 05/02/21 20:45 Famotidine (Pepcid) 20 mg BID PO 04/28/21 21:00 8/11/21 09:31 DC 05/06/21 08:14 Sucralfate (Carafate) 1 gm ACHS PO 04/28/21 21:00 05/15/21 07:29 DC 05/12/21 21:00 Enoxaparin Sodium (Lovenox) 40 mg Q24HRS SQ 04/28/21 20:00 05/06/21 08:06 DC 05/05/21 21:00 Sucralfate (Carafate) 1 gm STK-MED ONCE PO 04/28/21 20:56 04/28/21 20:56 DC Lorazepam (Ativan) 1 mg Q4HR PRN IV ANXIETY 04/29/21 00:00 05/12/21 09:13 DC 05/06/21 18:45 Lorazepam (Ativan) 0.5 mg Q4HR PRN IV ANXIETY 04/29/21 00:00 05/06/21 09:00 DC Fentanyl Citrate (Sublimaze) 50 mcg STK-MED ONCE .ROUTE 04/29/21 11:37 04/29/21 11:38 DC Fentanyl Citrate (Sublimaze) 12.5 mcg OT ONCE IV 04/29/21 15:00 04/29/21 15:06 DC 04/29/21 13:35 Acetaminophen (Tylenol) 650 mg Q6HR PRN PO PAIN 1 - 3 04/30/21 18:00 05/02/21 18:00 DC 05/01/21 06:28 Dexmedetomidine HCl 200 mcg/ Sodium Chloride 50 ml @ 0 mls/hr IV 05/01/21 10:30 05/01/21 11:28 DC Sodium Chloride 250 ml @ ud STK-MED ONCE .ROUTE 05/01/21 20:40 05/01/21 20:40 DC Acetaminophen (Tylenol) 650 mg Q6HR PRN PO PAIN 1 - 3 05/02/21 20:30 05/08/21 18:01 DC 05/04/21 21:15 Bisacodyl (Dulcolax Ec Tablet) 5 mg STAT STAT PO 05/03/21 13:45 05/03/21 19:05 DC 05/03/21 14:36 Docusate Sodium (Colace) 100 mg BID PO 05/05/21 09:00 05/07/21 09:30 DC 05/06/21 08:14 Lorazepam (Ativan) 2 mg STK-MED ONCE .ROUTE 05/05/21 02:31 05/05/21 02:31 DC Lorazepam (Ativan) 2 mg STK-MED ONCE .ROUTE 05/05/21 03:46 05/05/21 03:47 DC Furosemide (Lasix) 20 mg OT ONCE IV 05/05/21 11:00 05/05/21 11:01 DC 05/05/21 11:20 Lorazepam (Ativan) 2 mg STK-MED ONCE .ROUTE 05/05/21 20:56 05/05/21 20:56 DC Enoxaparin Sodium (Lovenox) 100 mg Q12H SQ 05/06/21 08:30 06/05/21 08:29 05/24/21 08:30 Furosemide (Lasix) 20 mg STAT STAT IV 05/06/21 08:48 05/06/21 09:00 DC 05/06/21 08:48 Insulin Human Regular (Humulin R) 1 unit STK-MED ONCE .ROUTE 05/06/21 19:13 05/06/21 19:14 DC Propofol (Diprivan) 1,000 mg PRN PRN IV SEDATION 05/06/21 20:30 05/08/21 11:39 DC 05/08/21 04:00 Propofol 100 ml @ ud STK-MED ONCE IV 05/06/21 20:19 05/06/21 20:19 DC Vecuronium [place] (Norcuron) 10 mg STK-MED ONCE .ROUTE 05/06/21 22:24 05/06/21 22:24 DC Vecuronium [place] (Norcuron) 10 mg Q6HR PRN IV SHORTNESS OF BREATH 05/06/21 23:00 05/07/21 00:34 DC Vecuronium [place] (Norcuron) 10 mg Q4 PRN IV SHORTNESS OF BREATH 05/07/21 00:30 05/12/21 00:00 DC 05/11/21 20:00 Vecuronium [place] (Norcuron) 10 mg STK-MED ONCE .ROUTE 05/07/21 00:20 05/07/21 00:34 DC Propofol 100 ml @ ud STK-MED ONCE IV 05/07/21 01:53 05/07/21 01:53 DC Norepinephrine Bitartrate 8 mg/ Sodium Chloride 250 ml @ 0 mls/hr DAILY IV 05/07/21 09:00 05/10/21 16:46 DC 05/09/21 09:00 Fentanyl Citrate (Sublimaze) 100 mcg Q1HR IV 05/07/21 04:00 05/07/21 09:58 DC Piperacillin Sod/ Tazobactam Sod 4.5 gm/Sodium Chloride 100 ml @ 100 mls/hr Q6H IV 05/07/21 04:00 05/12/21 09:15 DC 05/11/21 22:00 Norepinephrine Bitartrate (Levophed) 4 mg STK-MED ONCE .ROUTE 05/07/21 04:38 05/07/21 04:38 DC Sodium Chloride 250 ml @ ud STK-MED ONCE .ROUTE 05/07/21 04:38 05/07/21 04:38 DC Fentanyl Citrate (Sublimaze) 100 mcg Q1HR PRN IV PAIN 7 - 10 05/07/21 06:30 05/12/21 09:13 DC 05/07/21 06:41 Fentanyl Citrate 2000 mcg/Sodium Chloride 200 ml @ 0 mls/hr IV 05/07/21 10:00 05/07/21 17:01 DC 05/07/21 10:30 Famotidine (Pepcid) 20 mg BID IV 05/07/21 09:30 06/06/21 09:29 05/24/21 08:58 Docusate Sodium (Colace) 100 mg BID NG 05/07/21 09:30 06/06/21 09:29 05/24/21 08:58 Propofol (Diprivan) 200 mg STK-MED ONCE IV 05/07/21 08:00 05/07/21 11:57 DC Succinylcholine Chloride (Quelicin) 8 mg STK-MED ONCE IV 05/07/21 08:00 05/07/21 11:57 DC Vecuronium [place] (Norcuron) 10 mg STK-MED ONCE IV 05/07/21 08:00 05/07/21 11:57 DC Propofol 100 ml @ ud STK-MED ONCE IV 05/07/21 14:49 05/07/21 14:50 DC Fentanyl Citrate 5000 mcg/Sodium Chloride 500 ml @ 0 mls/hr IV 05/07/21 18:00 06/06/21 17:59 05/24/21 00:27 Propofol 100 ml @ ud STK-MED ONCE IV 05/07/21 19:08 05/07/21 19:08 DC Propofol 100 ml @ ud STK-MED ONCE IV 05/07/21 23:47 05/07/21 23:47 DC Propofol 100 ml @ ud STK-MED ONCE IV 05/08/21 03:45 05/08/21 03:46 DC Propofol 100 ml @ ud STK-MED ONCE IV 05/08/21 07:33 05/08/21 07:34 DC Propofol 100 ml @ ud STK-MED ONCE IV 05/08/21 11:27 05/08/21 11:27 DC Propofol 100 ml @ 27.6 mls/hr PRN PRN IV SEDATION 05/08/21 12:00 05/18/21 13:19 DC 05/14/21 03:30 Acetaminophen (Tylenol) 650 mg Q6HR PRN RC FEVER 05/08/21 22:00 06/07/21 21:59 05/15/21 23:52 Midazolam HCl 50 mg/Sodium Chloride 50 ml @ 2 mls/hr ONCE IV 05/09/21 14:30 05/10/21 09:50 DC 05/09/21 14:30 Hydromorphone HCl (Dilaudid) 2 mg STK-MED ONCE .ROUTE 05/09/21 20:10 05/09/21 20:10 DC Hydromorphone HCl (Dilaudid) 0.5 mg Q4H PRN IV PAIN 7 - 10 05/09/21 20:00 06/08/21 19:59 05/18/21 13:28 Sodium Chloride 100 ml @ ud STK-MED ONCE IV 05/09/21 21:13 05/09/21 21:13 DC Midazolam HCl 100 mg/Sodium Chloride 100 ml @ 0 mls/hr ONCE IV 05/10/21 10:00 05/10/21 10:01 DC 05/10/21 10:55 Furosemide (Lasix) 20 mg BID IV 05/10/21 10:30 05/10/21 12:38 DC 05/10/21 10:55 Furosemide (Lasix) 20 mg STK-MED ONCE .ROUTE 05/10/21 10:48 05/10/21 10:49 DC Vecuronium [place] (Norcuron) 10 mg Q2H PRN IV ventilator dyssynchrony 05/10/21 11:30 06/09/21 11:29 05/24/21 09:01 Furosemide (Lasix) 20 mg BID IV 05/10/21 12:38 05/18/21 10:27 DC 05/17/21 20:34 Norepinephrine Bitartrate 8 mg/ Sodium Chloride 250 ml @ 0 mls/hr DAILY IV 05/11/21 09:00 05/11/21 08:54 DC Midazolam HCl 100 mg/Sodium Chloride 100 ml @ 0 mls/hr IV 05/10/21 17:00 05/11/21 08:57 DC 05/11/21 01:39 Albuterol Sulfate (Ventolin Hfa) 200 inh STK-MED ONCE IH 05/10/21 22:44 05/10/21 22:45 DC Albuterol Sulfate (Ventolin Hfa) 2 inh OT ONCE IH 05/10/21 23:00 05/10/21 23:01 DC 05/10/21 23:15 Norepinephrine Bitartrate 8 mg/ Sodium Chloride 258 ml @ 0 mls/hr IV 05/11/21 08:00 06/10/21 07:59 05/23/21 17:37 Midazolam HCl 100 mg/Sodium Chloride 100 ml @ 0 mls/hr TITRATE IV 05/11/21 09:00 05/16/21 16:09 DC 05/16/21 12:21 Sodium Chloride 1,000 ml @ ud STK-MED ONCE .ROUTE 05/12/21 19:14 05/12/21 19:14 DC Albuterol Sulfate (Ventolin) 1.25 mg RTQ6 05/14/21 03:00 05/14/21 00:49 DC Albuterol Sulfate (Ventolin) 1.25 mg RTQ6 PRN IH WHEEZING 05/14/21 03:00 06/13/21 02:59 05/23/21 14:45 Vancomycin HCl 1.5 gm/Sodium Chloride 300 ml @ 175 mls/hr Q12H IV 05/14/21 12:00 05/16/21 09:01 DC 05/16/21 00:00 Cefepime HCl 2 gm/ Sodium Chloride 100 ml @ 100 mls/hr BID IV 05/14/21 10:30 05/23/21 19:49 DC 05/23/21 08:49 Acetaminophen (Ofirmev) 1,000 mg Q8H IV 05/14/21 14:30 05/14/21 16:57 DC Acetaminophen (Ofirmev) 1,000 mg Q8H PRN IV FEVER 05/14/21 17:00 06/13/21 14:29 05/22/21 12:27 Fat Emulsion Intravenous 250 ml @ 15 mls/hr Q2D IV 05/14/21 17:30 05/18/21 21:26 DC 05/16/21 16:50 Ketorolac Tromethamine (Toradol) 30 mg OT PRN IV PAIN 4 - 6 05/14/21 21:30 05/17/21 15:08 DC 05/14/21 21:41 Sterile Water (Water) 1,000 ml STK-MED ONCE .ROUTE 05/14/21 22:50 05/14/21 22:50 DC Sodium Chloride 100 ml @ ud STK-MED ONCE IV 05/15/21 04:22 05/15/21 04:22 DC Vancomycin HCl 1.5 gm/Sodium Chloride 300 ml @ 175 mls/hr Q8H IV 05/16/21 17:00 05/19/21 17:07 DC 05/19/21 09:00 Vancomycin HCl 2 gm/Sodium Chloride 400 ml @ 160 mls/hr OT IV 05/16/21 09:30 05/17/21 15:08 DC 05/16/21 10:24 Potassium Chloride 50 ml @ 50 mls/hr Q2 IV 05/16/21 16:00 05/16/21 20:59 DC 05/16/21 20:00 Midazolam HCl 200 mg/Sodium Chloride 200 ml @ 0 mls/hr TITRATE IV 05/16/21 16:30 06/15/21 16:29 05/24/21 08:59 Sodium Chloride 500 ml @ ud STK-MED ONCE IV 05/16/21 16:46 05/16/21 16:46 DC Vancomycin HCl 1 ml @ ud STK-MED ONCE .ROUTE 05/17/21 01:55 05/17/21 01:55 DC Sodium Chloride 250 ml @ ud STK-MED ONCE .ROUTE 05/17/21 01:55 05/17/21 01:56 DC Magnesium Sulfate 50 ml @ 50 mls/hr OT ONCE IV 05/17/21 11:30 05/17/21 12:29 DC 05/17/21 11:30 Potassium Chloride 100 ml @ 50 mls/hr OT IV 05/17/21 11:30 05/17/21 20:22 DC 05/17/21 13:04 Insulin Glargine (Lantus) 1 unit STK-MED ONCE SQ 05/17/21 13:00 05/17/21 13:01 DC Potassium Chloride 200 ml @ 50 mls/hr OT IV 05/17/21 19:30 05/18/21 10:43 DC 05/17/21 23:20 Potassium Chloride (Potassium Chloride) 40 meq STAT STAT NG 05/18/21 10:23 05/18/21 10:42 DC 05/18/21 10:23 Magnesium Sulfate 50 ml @ 50 mls/hr OT ONCE IV 05/18/21 10:30 05/18/21 11:29 DC 05/18/21 12:20 Potassium Chloride 100 ml @ 50 mls/hr OT ONCE IV 05/18/21 10:30 05/18/21 12:29 DC 05/18/21 12:19 Furosemide (Lasix) 20 mg DAILY IV 05/19/21 09:00 05/24/21 08:41 DC 05/23/21 08:48 Potassium Chloride (Potassium Chloride) 40 meq STK-MED ONCE .ROUTE 05/18/21 12:17 05/18/21 12:17 DC Propofol (Diprivan) Diprivan IV infusion tritra... TITRATE PRN IV SEDATION 05/18/21 13:30 06/17/21 13:29 05/18/21 13:29 Potassium Chloride 200 ml @ 50 mls/hr OT ONCE IV 05/18/21 14:00 05/18/21 14:21 DC Bisacodyl (Bisac-Evac) 10 mg STAT STAT RC 05/18/21 19:46 05/18/21 20:49 DC 05/18/21 19:46 Fat Emulsion Intravenous 250 ml @ 15 mls/hr Q2D IV 05/19/21 08:00 05/19/21 08:46 DC Insulin Human Regular (Humulin R) 1 unit STK-MED ONCE .ROUTE 05/19/21 01:58 05/19/21 01:58 DC Fat Emulsion Intravenous 250 ml @ 15 mls/hr Q2D IV 05/20/21 17:00 06/19/21 16:59 05/22/21 17:00 Potassium Phosphate 30 mmol/ Sodium Chloride 110 ml @ 25 mls/hr OT IV 05/19/21 13:30 05/19/21 17:53 DC Vancomycin HCl 1.5 gm/Sodium Chloride 300 ml @ 175 mls/hr Q12HR IV 05/19/21 21:00 06/18/21 20:59 05/24/21 08:58 Sodium Chloride 500 ml @ ud STK-MED ONCE IV 05/20/21 21:16 05/20/21 21:16 DC Sodium Chloride 250 ml @ ud STK-MED ONCE .ROUTE 05/21/21 09:37 05/21/21 09:38 DC Norepinephrine Bitartrate (Levophed) 4 mg STK-MED ONCE .ROUTE 05/21/21 09:38 05/21/21 09:38 DC Sodium Chloride 250 ml @ ud STK-MED ONCE .ROUTE 05/21/21 21:27 05/21/21 21:27 DC Vancomycin HCl 1 ml @ ud STK-MED ONCE .ROUTE 05/21/21 21:27 05/21/21 21:27 DC Methylprednisolone Sodium Succinate (Solu-Medrol) 40 mg Q8HR IV 05/22/21 10:30 06/21/21 10:29 05/24/21 06:00 Potassium Chloride 100 ml @ 50 mls/hr STAT STAT IV 05/23/21 08:11 05/23/21 10:10 DC 05/23/21 08:11 Sodium Chloride 500 ml @ ud STK-MED ONCE IV 05/23/21 08:43 05/23/21 08:43 DC Bisacodyl (Bisac-Evac) 10 mg DAILY PRN RC CONSTIPATION 05/23/21 12:00 06/22/21 11:59 05/23/21 15:30 Insulin Human Regular (Humulin R) ACHS SQ 05/23/21 17:30 06/22/21 17:29 05/24/21 07:30 Insulin Human Regular (Humulin R) 1 unit STK-MED ONCE .ROUTE 05/23/21 12:13 05/23/21 12:13 DC Sodium Bicarbonate (Sodium Bicarbonate) 50 meq STAT STAT IV 05/23/21 15:51 05/23/21 16:05 DC 05/23/21 15:51 Sodium Bicarbonate (Sodium Bicarbonate) 50 meq STAT STAT IV 05/23/21 15:51 05/23/21 16:06 DC 05/23/21 15:51 Meropenem 1000 mg/ Sodium Chloride 100 ml @ 200 mls/hr Q8H IV 05/23/21 20:00 06/22/21 19:59 05/24/21 03:41 Sodium Chloride 100 ml @ ud STK-MED ONCE IV 05/23/21 20:04 05/23/21 20:04 DC Sodium Chloride 100 ml @ ud STK-MED ONCE IV 05/24/21 03:04 05/24/21 03:04 DC Furosemide (Lasix) 40 mg DAILY IV 05/24/21 09:00 05/24/21 09:08 DC Insulin Glargine (Lantus) 20 unit HS SQ 05/24/21 21:00 06/23/21 20:59 Potassium Chloride 100 ml @ 50 mls/hr OT ONCE IV 05/24/21 09:00 05/24/21 10:59 Lactulose (Cephulac) 20 gm DAILY NG 05/24/21 09:00 06/23/21 08:59 Furosemide (Lasix) 40 mg DAILY IV 05/24/21 09:08 06/23/21 08:59 VTE VTE Risk Total Score: 5 VTE Risk Score VTE Risk: Score 0-1 = Low Risk (Aggressive mobilization; early ambulation; no VTE prophylaxis required) Score 2: Moderate Risk (Intermittent/Pneumatic Compression Device OR Lovenox/Heparin/Coumadin) Score 3-4: High Risk (Intermittent/Pneumatic Compression Device AND Lovenox/Heparin/Coumadin) Score > or =5: Highest Risk (Intermittent/Pneumatic Compression Device AND Lovenox/Heparin/Coumadin) Antico:Hep/LMWH/Coum/Xarelto: Yes Mechanical device ordered: Yes VTE VTE Present on Admission: No Currently receiving anticoagul: Yes VTE Risk Total Score: 5 Antico:Hep/LMWH/Coum/Xarelto: Yes Mechanical device ordered: Yes Assessment/Plan Assessment/Plan Assessment/Plan 35 yo Female with hypoxemic respiratory failure/ARDS - COVID-19 infection BIPAP/therapeutic protocol completed ultimately requiring intubation 05/06 no significant improvement noted chart review indicated patient considered for transfer to tertiary center/ECMO but no beds available in state or multiple neighboring states ongoing assessment for bed availability remains on high FI02/PEEP with little to no improvement Chart reviewed too unstable for anticipated trach placement today PMHx includes but is not limited to: obesity (BMI 34) Qtts: Fentanyl (300) Precedex 1.5 Versed (10) Levophed currently off Assessment/Plan 1. cont current vent support. decrease fio2 to 80% 2. cont analgesosedation and neuromuscular blockade 3. increase lasix to 40mg daily 4. replete K 5. IV steroids 6. vanco/meropenem per ID consultation 7. DVT/GI prophylaxis Bedside rounds completed with nurse and bedside RT as well as hospitalist. - All issues addressed at this time Patient seen through remote audiovisual assessment through HIPPA compliant technology Cumulative non-procedural critical care time spent in directed patient care 60 minutes COURTNEY WINTERS MD May 24, 2021 08:40
[2021-05-24] MEDS: PEPCID IV SCH ×2 (08:58→21:49)
[2021-05-24] MEDS: VANCOMYCIN HCL 1.5 GM in NS 250ML 300 ML IV SCH ×2 (08:58→21:50)
[2021-05-24] MEDS: COLACE NG SCH ×2 (08:58→21:49)
[2021-05-24] MEDS: VERSED IV SCH (08:59)
[2021-05-24] MEDS ORDERED: KCL 20MEQ/100ML 100 ML IV ONE ×2 (09:00→13:11)
[2021-05-24] MEDS ORDERED: LASIX IV SCH (09:00)
[2021-05-24] MEDS: LASIX IV SCH (10:03)
[2021-05-24] MEDS ORDERED: [UNRECOGNIZED DRUG - OTHER] IV ONE (10:20)
[2021-05-24] MEDS ORDERED: KCL 20MEQ/100ML 100 ML IV STA (10:20)
[2021-05-24] MEDS ORDERED: KCL IV ONE (10:20)
[2021-05-24] MEDS: CEPHULAC NG SCH (10:24)
--- NOTE | 2021-05-24 10:35 | PRM.PN ---
Subjective Subjective Date: May 24, 2021 Time: 08:00 Subjective Patient ventilation deteriorated last night, with rising PaCO2 more than 110 dropped to pH to 7.0. Patient currently on pressure control. ABG today pH is more than 7.2 with decreasing PaCO2 and improvement in PaO2. Currently patient is on pressure control with 80% FiO2, potassium is low today at 3.3, being replaced. Case was discussed with patient family, sisters yesterday also it was discussed with telemetry elastic yarn twister helper last night. VTE VTE Risk Total Score: 5 VTE Risk Score VTE Risk: Score 0-1 = Low Risk (Aggressive mobilization; early ambulation; no VTE prophylaxis required) Score 2: Moderate Risk (Intermittent/Pneumatic Compression Device OR Lovenox/Heparin/Coumadin) Score 3-4: High Risk (Intermittent/Pneumatic Compression Device AND Lovenox/Heparin/Coumadin) Score > or =5: Highest Risk (Intermittent/Pneumatic Compression Device AND Lovenox/Heparin/Coumadin) Antico:Hep/LMWH/Coum/Xarelto: Yes Mechanical device ordered: Yes Review of Systems Other Unable to obtain, patient is intubated sedated. Allergies: Coded Allergies: ibuprofen (Verified Allergy, Unknown, 04/29/21) naproxen (Verified Allergy, Unknown, 04/29/21) Objective Vitals and I/O Vital Sign - Last 24 Hours 05/23/21 05/23/21 05/23/21 05/23/21 10:30 10:45 11:00 11:15 Temp 97.3 97.5 97.5 97.7 Pulse 74 68 98 94 Resp 35 B/P (MAP) 140/68 (92) 147/67 (93) 159/71 (100) 163/70 (101) Pulse Ox 95 95 94 95 05/23/21 05/23/21 05/23/21 05/23/21 11:30 11:45 12:00 12:01 Temp 97.9 98.1 98.1 98.1 Pulse 95 103 102 102 Resp 35 B/P (MAP) 161/69 (99) 160/68 (98) 155/66 (95) 157/67 (97) Pulse Ox 94 92 93 93 05/23/21 05/23/21 05/23/21 05/23/21 12:15 12:15 12:30 12:38 Temp 98.2 98.2 Pulse 109 98 108 Resp 38 B/P (MAP) 155/67 (96) 153/65 (94) Pulse Ox 90 90 92 O2 Delivery Mechanical Ventilator FiO2 100 05/23/21 05/23/21 05/23/21 05/23/21 12:38 12:45 13:00 13:15 Temp 98.2 98.2 98.2 Pulse 111 107 101 Resp 35 B/P (MAP) 152/66 (94) 153/66 (95) 150/67 (94) Pulse Ox 90 90 88 FiO2 100 05/23/21 05/23/21 05/23/21 05/23/21 13:30 13:45 13:58 14:00 Temp 98.4 98.2 98.2 Pulse 87 119 96 92 Resp 35 35 B/P (MAP) 132/56 (81) 142/66 (91) 125/55 (78) Pulse Ox 87 89 89 89 FiO2 100 05/23/21 05/23/21 05/23/21 05/23/21 14:01 14:15 14:30 14:45 Temp 98.2 98.2 96.3 97.7 Pulse 97 86 104 118 B/P (MAP) 121/55 (77) 107/50 (69) 131/62 (85) 117/59 (78) Pulse Ox 89 89 91 92 05/23/21 05/23/21 05/23/21 05/23/21 15:00 15:15 15:30 15:45 Temp 98.1 98.1 98.2 98.2 Pulse 105 102 110 112 Resp 35 B/P (MAP) 110/52 (71) 103/48 (66) 108/51 (70) 98/46 (63) Pulse Ox 92 93 92 91 05/23/21 05/23/21 05/23/21 05/23/21 16:00 16:01 16:15 16:21 Temp 98.2 98.2 98.2 Pulse 108 107 101 103 Resp 35 35 B/P (MAP) 93/44 (60) 92/43 (59) 84/40 (55) Pulse Ox 90 90 86 89 FiO2 100 05/23/21 05/23/21 05/23/21 05/23/21 16:30 16:31 16:31 16:45 Temp 98.2 98.2 Pulse 99 95 B/P (MAP) 93/44 (60) 100/47 (64) Pulse Ox 90 90 O2 Delivery Mechanical Ventilator FiO2 100 05/23/21 05/23/21 05/23/21 05/23/21 17:00 17:15 17:30 17:33 Temp 98.4 98.6 98.6 Pulse 92 91 86 66 Resp 35 B/P (MAP) 103/48 (66) 100/47 (64) 105/49 (67) Pulse Ox 90 89 90 91 O2 Delivery Mechanical Ventilator FiO2 100 05/23/21 05/23/21 05/23/21 05/23/21 17:33 17:45 18:00 18:01 Temp 98.8 99.0 99.0 Pulse 86 84 85 85 Resp 35 B/P (MAP) 106/49 (68) 107/50 (69) 107/51 (69) Pulse Ox 91 92 92 93 FiO2 100 05/23/21 05/23/21 05/23/21 05/23/21 18:15 18:30 18:45 19:00 Temp 99.1 99.2 99.4 99.5 Pulse 87 91 91 109 B/P (MAP) 108/51 (70) 107/52 (70) 92/45 (61) 126/61 (82) Pulse Ox 93 94 94 96 05/23/21 05/23/21 05/23/21 05/23/21 19:15 19:30 19:31 19:31 Temp 99.5 99.5 Pulse 98 100 97 Resp 35 B/P (MAP) 112/53 (72) 111/54 (73) Pulse Ox 95 95 95 O2 Delivery Mechanical Ventilator FiO2 100 05/23/21 05/23/21 05/23/21 05/23/21 19:45 20:00 20:01 20:15 Temp 99.5 99.5 99.5 99.4 Pulse 96 94 92 87 B/P (MAP) 106/52 (70) 106/53 (70) 107/53 (71) 104/51 (68) Pulse Ox 95 95 95 95 05/23/21 05/23/21 05/23/21 05/23/21 20:28 20:30 20:45 21:00 Temp 99.4 99.2 99.0 Pulse 92 84 95 86 Resp 35 B/P (MAP) 112/54 (73) 111/54 (73) 108/52 (70) Pulse Ox 95 95 96 96 FiO2 100 05/23/21 05/23/21 05/23/21 05/23/21 21:15 21:30 21:45 22:00 Temp 99.0 99.0 98.9 98.9 Pulse 84 83 91 89 B/P (MAP) 109/53 (71) 114/54 (74) 112/55 (74) 113/55 (74) Pulse Ox 96 97 97 97 05/23/21 05/23/21 05/23/21 05/23/21 22:01 22:10 22:15 22:30 Temp 98.9 98.9 98.9 Pulse 89 84 88 84 Resp 35 B/P (MAP) 113/55 (74) 113/55 (74) 113/54 (73) Pulse Ox 97 97 97 97 FiO2 100 05/23/21 05/23/21 05/23/21 05/23/21 22:45 23:00 23:15 23:30 Temp 98.9 98.9 99.0 99.0 Pulse 83 82 82 82 B/P (MAP) 113/54 (73) 114/54 (74) 115/55 (75) 116/54 (74) Pulse Ox 97 97 97 98 05/23/21 05/23/21 05/23/21 05/24/21 23:45 23:50 23:50 00:00 Temp 99.0 99.0 Pulse 85 83 82 Resp 35 B/P (MAP) 122/57 (78) 120/55 (76) Pulse Ox 98 98 98 O2 Delivery Mechanical Ventilator FiO2 100 05/24/21 05/24/21 05/24/21 05/24/21 00:01 00:04 00:15 00:30 Temp 99.0 99.0 99.0 Pulse 82 82 82 81 Resp 35 B/P (MAP) 120/55 (76) 120/55 (76) 111/51 (71) Pulse Ox 98 98 98 98 FiO2 100 05/24/21 05/24/21 05/24/21 05/24/21 00:45 01:00 01:15 01:30 Temp 99.0 99.1 99.1 99.1 Pulse 81 82 81 81 B/P (MAP) 122/56 (78) 120/55 (76) 120/55 (76) 122/55 (77) Pulse Ox 98 97 98 98 05/24/21 05/24/21 05/24/21 05/24/21 01:45 02:00 02:01 02:08 Temp 99.1 99.1 99.1 Pulse 80 80 80 79 Resp 35 B/P (MAP) 122/55 (77) 123/55 (77) 122/55 (77) Pulse Ox 98 98 98 98 FiO2 100 05/24/21 05/24/21 05/24/21 05/24/21 02:15 02:30 02:45 03:00 Temp 99.1 99.1 99.1 99.1 Pulse 80 79 77 78 B/P (MAP) 124/55 (78) 128/57 (80) 127/56 (79) 128/57 (80) Pulse Ox 98 97 97 97 05/24/21 05/24/21 05/24/21 05/24/21 03:15 03:30 03:43 03:43 Temp 99.1 99.1 Pulse 78 78 78 Resp 35 B/P (MAP) 129/57 (81) 121/53 (75) Pulse Ox 97 97 98 O2 Delivery Mechanical Ventilator FiO2 100 05/24/21 05/24/21 05/24/21 05/24/21 03:45 03:54 04:00 04:01 Temp 99.1 99.1 99.1 Pulse 78 78 76 77 Resp 35 B/P (MAP) 133/58 (83) 130/56 (80) 129/56 (80) Pulse Ox 98 98 98 98 FiO2 100 05/24/21 05/24/21 05/24/21 05/24/21 04:15 04:30 04:45 05:00 Temp 99.1 99.1 99.1 99.1 Pulse 78 77 77 75 B/P (MAP) 132/58 (82) 134/58 (83) 132/57 (82) 132/57 (82) Pulse Ox 98 99 98 98 05/24/21 05/24/21 05/24/21 05/24/21 05:15 05:30 05:45 06:00 Temp 99.1 99.1 99.1 99.1 Pulse 76 75 74 74 B/P (MAP) 128/56 (80) 130/56 (80) 130/56 (80) 131/57 (81) Pulse Ox 98 98 98 98 05/24/21 05/24/21 05/24/21 05/24/21 06:01 06:10 06:15 06:30 Temp 99.1 99.1 99.1 Pulse 75 75 74 74 Resp 35 B/P (MAP) 131/56 (81) 130/56 (80) 135/58 (83) Pulse Ox 98 98 98 99 FiO2 100 05/24/21 05/24/21 05/24/21 05/24/21 06:45 07:00 07:15 07:30 Temp 99.1 99.1 99.1 Pulse 74 73 73 Resp 35 B/P (MAP) 137/59 (85) 136/59 (84) 137/59 (85) Pulse Ox 98 98 97 FiO2 100 05/24/21 05/24/21 05/24/21 05/24/21 07:30 07:30 07:45 07:59 Temp 99.1 99.1 Pulse 72 69 70 Resp 35 35 35 B/P (MAP) 136/59 (84) 137/60 (85) Pulse Ox 97 97 97 O2 Delivery Mechanical Ventilator FiO2 100 05/24/21 05/24/21 05/24/21 05/24/21 07:59 08:00 08:01 08:15 Temp 99.1 99.1 99.1 Pulse 70 71 70 67 Resp 35 35 35 B/P (MAP) 139/61 (87) 140/61 (87) 134/57 (82) Pulse Ox 97 97 97 97 O2 Delivery Mechanical Ventilator FiO2 100 05/24/21 05/24/21 08:24 10:03 B/P (MAP) 139/59 FiO2 80 Intake and Output 05/24/21 07:00 Intake Total 6857 ml Output Total 4200 ml Balance 2657 ml General: Other (Intubated sedated.) HEENT: Atraumatic, PERRLA, EOMI Neck: Supple, No JVD Extremities: No clubbing, No cyanosis Neuro: Other (Intubated sedated.) Psych/Mental Status: Other (Intubated sedated.) All Results(Lab/Rad) Laboratory Tests Test 05/02/21 06:37 05/02/21 08:25 White Blood Count 7.6 10^3/uL Red Blood Count 4.62 10^6/uL Hemoglobin 13.6 g/dL Hematocrit 40.6 % Mean Corpuscular Volume 87.9 fL Mean Corpuscular Hemoglobin 29.4 pg Mean Corpuscular Hemoglobin Concent 33.5 g/dL Red Cell Distribution Width 12.0 % Platelet Count 268 10^3/uL Mean Platelet Volume 10.5 fL Neutrophils (%) (Auto) 82.9 % Lymphocytes (%) (Auto) 11.7 % Monocytes (%) (Auto) 5.4 % Neutrophils # (Auto) 6.3 10^3/uL Lymphocytes # (Auto) 0.89 10^3/uL1 Monocytes # (Auto) 0.4 10^3/uL Absolute Immature Granulocyte (auto 0.12 10^3 u/L Absolute Eosinophils (auto) 0.0 10^3/uL Immature Granulocytes % 1.60 % Eosinophils % 0.0 % Basophils % 0.0 % Basophils # 0.0 10^3/uL Sodium Level 140 mmol/L Potassium Level 4.7 mmol/L Chloride Level 104.0 mmol/L Carbon Dioxide Level 27.6 mmol/L Anion Gap 13.1 Blood Urea Nitrogen 14 mg/dL Creatinine 0.62 mg/dL Estimated GFR () 131.8 Est GFR (CKD-EPI)(Non-Afr Kitt[place]) 108.9 BUN/Creatinine Ratio 22.0 Glucose Level 121 mg/dL Calcium Level 8.8 mg/dL Total Bilirubin 0.4 mg/dL Aspartate Amino Transf (AST/SGOT) 26 U/L Alanine Aminotransferase (ALT/SGPT) 37 U/L Alkaline Phosphatase 42 U/L Total Protein 6.7 g/dL Albumin 2.5 g/dL Globulin 4.2 Albumin/Globulin Ratio 0.595 Blood Gas Sample Site RT RADIAL ARTERY Blood Gas pH 7.405 Blood Gas PCO2 41.1 mmHg Blood Gas PO2 82.5 mmHg Blood Gas HCO3 25.2 mmol/L Blood Gas Base Excess 0.4 mmol/L Lucas Test POSITIVE Arterial Blood Oxygen Saturation 95.5 % Deoxyhemoglobin 4.5 % Carboxyhemoglobin 0.6 % Methemoglobin 0.3 % Total Hemoglobin 14.6 % Total Oxygen Concentration 19.5 % Blood Gas Temperature 37 Oxygen Delivery Method (LAB) BIPAP15/7 FiO2 99 % Total Carbon Dioxide 26.4 mmol/L Current Medications Medications (Trade) Dose Ordered Sig/Davon Route PRN Reason Start Time Stop Time Status Last Admin Dose Admin Remdesivir 200 mg/ Sodium Chloride 140 ml @ 120.69 mls/ hr OT STAT IV 04/28/21 19:53 04/29/21 08:10 DC 04/28/21 19:53 Remdesivir 100 mg/ Sodium Chloride 120 ml @ 111.111 mls/hr Q24HRS IV 04/29/21 20:00 05/02/21 21:05 05/01/21 20:50 Famotidine (Pepcid) 20 mg BID PO 04/28/21 21:00 05/28/21 20:59 05/02/21 09:29 Sucralfate (Carafate) 1 gm ACHS PO 04/28/21 21:00 05/28/21 20:59 05/02/21 07:30 Enoxaparin Sodium (Lovenox) 40 mg Q24HRS SQ 04/28/21 20:00 05/28/21 19:59 05/01/21 20:50 Sucralfate (Carafate) 1 gm STK-MED ONCE PO 04/28/21 20:56 04/28/21 20:56 DC Lorazepam (Ativan) 1 mg Q4HR PRN IV ANXIETY 04/29/21 00:00 05/29/21 00:00 04/30/21 22:30 Lorazepam (Ativan) 0.5 mg Q4HR PRN IV ANXIETY 04/29/21 00:00 05/29/21 00:00 Fentanyl Citrate (Sublimaze) 50 mcg STK-MED ONCE .ROUTE 04/29/21 11:37 04/29/21 11:38 DC Fentanyl Citrate (Sublimaze) 12.5 mcg OT ONCE IV 04/29/21 15:00 04/29/21 15:06 DC 04/29/21 13:35 Acetaminophen (Tylenol) 650 mg Q6HR PRN PO PAIN 1 - 3 04/30/21 18:00 05/02/21 18:00 05/01/21 06:28 Dexmedetomidine HCl 200 mcg/ Sodium Chloride 50 ml @ 0 mls/hr IV 05/01/21 10:30 05/01/21 11:28 DC Sodium Chloride 250 ml @ ud STK-MED ONCE .ROUTE 05/01/21 20:40 05/01/21 20:40 DC Assessment/Plan Assessment/Plan Assessment/Plan Problems: (1) Acute hypoxemic respiratory failure ICD Code: J96.01 - Acute respiratory failure with hypoxia SNOMED: 869250324 (2) Pneumonia due to COVID-19 virus Status: Acute ICD Code: U07.1 - COVID-19; J12.82 - Pneumonia due to coronavirus disease 2019 SNOMED: 310556643023625552 (3) Bacteremia due to Gram-positive bacteria ICD Code: R78.81 - Bacteremia SNOMED: 881587279032 (4) Bacterial pneumonia ICD Code: J15.9 - Unspecified bacterial pneumonia SNOMED: 45669453 Plan 35 yo Female with hypoxemic respiratory failure/ARDS - COVID-19 infection BIPAP/therapeutic protocol completed ultimately requiring intubation 05/06 Assessment/Plan 1. cont current vent support.Currently patient is on pressure control. decrease fio2 to 80% 2. cont analgesosedation and neuromuscular blockade 3. increase lasix to 40mg daily 4. replete K, Monitor and correct electrolytes 5. IV steroids 6. vanco/meropenem per ID consultation 7. DVT/GI prophylaxis Case discussed with patient family. Patient presenting with potentially life-threatening condition. Critical care time spent examining the patient, reviewing labs, reviewing images, cussing the case with [employer], respiratory therapist, telemetry elastic yarn twister helper, patient family 65 minutes. ALANNA GARCIA MD May 24, 2021 10:35
--- NOTE | 2021-05-24 16:27 | DIREP ---
PROCEDURE:CHEST 1 VIEW COMPARISON:[facility], CR, XRAY CHEST SINGLE VW, 05/23/2021, 02:59 PM. [facility], CR, XRAY CHEST SINGLE VW, 05/23/2021, 07:24 AM. [facility], CR, XRAY CHEST SINGLE VW, 05/22/2021, 07:04 AM. INDICATIONS:covid FINDINGS: LUNGS/PLEURA:Diffuse patchy airspace opacities throughout all lobes. Mild interval worsening. VASCULATURE:Normal. Unremarkable pulmonary vasculature. CARDIAC:Normal. No cardiac silhouette abnormality or cardiomegaly. MEDIASTINUM:Normal. No visible mass or adenopathy. BONES:Normal. No fracture or visible bony lesion. OTHER:Endotracheal tube with tip overlying the mid trachea. Left subclavian catheter tip overlying the mid SVC. Enteric tube with tip off the inferior aspect of the image. CONCLUSION:Patchy diffuse airspace opacities, consistent with multi lobar pneumonia to include from atypical organisms such as COVID-19. Mild interval worsening. Dictated by: Mary Kate Solares M.D. on 05/24/2021 at 04:24 PM
--- NOTE | 2021-05-24 17:47 | PRM.OPH ---
OPERATIVE REPORT OPERATIVE REPORT Preop diagnosis Hypotension requiring pressor Postoperative diagnose Same Procedure Right subclavian vein triple-lumen catheter placement Surgeon Dr. Esquivel Anesthesia Propofol EBL Minimal Placement Arrow triple-lumen catheter Complications None Procedure The right chest and neck were prepped with ChloraPrep and a sterile field created in the standard fashion using the supplies the kit. Patient was placed into a Trendelenburg position. Appropriate landmarks were identified. The 18- gauge needle split in the kit was placed into the right subclavian vein un derneath the clavicle without difficulty. A wire then was advanced without difficulty through the the needle. A small mary kay in the skin was then made the needle was removed the dilator was slid over the wire while the wire was moved in opposite direction is dilated was placed. The central line was then placed over the wire and the wire grasped once through the central line and central line was then slid to 16 cm. The wire was then removed all ports were aspirated for blood and flushed with saline. It was secured to the patient's skin using 3-0 silk with the supplied the kit. A sterile dressing was applied by nursing. A chest x-ray was ordered. NGOZI ESQUIVEL MD May 24, 2021 17:47
[2021-05-24] MEDS: LIPID EMULSION IV SCH (18:06)
--- NOTE | 2021-05-24 18:30 | NUR ---
BED LINENS SOILED YELLOW CLEAR FLUID NOTED. UNABLE TO DETERMINE IF URINE OR BOWEL CONTENT NO SOLID STOOL NOTED. COTO CATHETER DRAINING CLEAR YELLOW FLUID. CHANGED LINENS AND BED BATH GIVEN. CHANGED DRESSING TO COCCYX. BEDSIDE REPORT GIVEN TO Delia BATISTA RN.
[2021-05-24] MEDS ORDERED: LANTUS SQ SCH (21:00)
--- NOTE | 2021-05-24 21:51 | NUR ---
2100 vancomycin held as per protocol due to vanc trough of 21.8
[2021-05-25] VITALS (87 sets, daily range): BP systolic 85–147; BP diastolic 43–71
[2021-05-25] MEDS: NORCURON IV PRN ×9 (01:21→22:55)
[2021-05-25] MEDS: OFIRMEV IV PRN (02:45)
--- NOTE | 2021-05-25 03:54 | NUR ---
DR WILKINS NOTIFIED OF CHANGE IN PT STATUS DESATURATING DOWN TO [address] WILKINS GAVE AND ORDER TO INCREASE FIO2 TO 90 RT NOTIFIED
[2021-05-25] MEDS: MERREM 1,000 MG in NS 100ML 100 ML IV SCH ×3 (04:26→21:45)
--- NOTE | 2021-05-25 05:12 | DIREP ---
PROCEDURE:CHEST 1 VIEW COMPARISON:[facility], CR, XRAY CHEST SINGLE VW, 05/24/2021, 02:06 PM. [facility], CR, XRAY CHEST SINGLE VW, 05/23/2021, 02:59 PM. INDICATIONS:covid FINDINGS: LUNGS/PLEURA:Widespread interstitial and ground-glass airspace disease with more confluent opacities in the periphery of the mid to lower lung zones bilaterally, left greater than right. No effusion or pneumothorax is seen. VASCULATURE:Normal. Unremarkable pulmonary vasculature. CARDIAC:Normal. No cardiac silhouette abnormality or cardiomegaly. MEDIASTINUM:Normal. No visible mass or adenopathy. BONES:Normal. No fracture or visible bony lesion. OTHER:Endotracheal tube with tip overlying the mid trachea. Left subclavian catheter tip overlying the mid SVC. Enteric tube with tip off the inferior aspect of the image. CONCLUSION: Widespread airspace disease, in keeping with COVID-19 pneumonia, not significantly changed from prior. Dictated by: Abundio Walls M.D. On 05/25/2021 at 05:06 AM
[2021-05-25 05:18] LABS: ABG PCO2 125.9 mmHg (35.0-45.0); ABG PH 7.132 (7.350-7.450); BE(B) 9.5 mmol/L (-2.0-2.0); HCO3act 41.1 mmol/L (22.0-26.0); pO2 57.3 mmHg (80.0-100.0)
--- NOTE | 2021-05-25 05:34 | NUR ---
DR WILKINS NOTIFIED OF PTS WORSENING ABG HE GAVE TWO ORDERS SWITCH MODE TO VOLUME AT TV400, IF THAT DOESNT IMPROVE WE CAN TRY PRESSURE CONTROL AT A RR OF 30 INSTEAD OF 35
[2021-05-25 05:37] LABS: LYMPHOCYTES # 1.88 10^3/uL1 (1.0-4.8); LYMPHOCYTES % 8.7 % (24.0-44.0); MONOCYTES % 4.7 % (5.0-12.0); NEUTROPHIL # 18.6 10^3/uL (1.8-7.7); NEUTROPHILS % 86.6 % (41.0-85.0); PLATELET COUNT 414 10^3/uL (150-400)
[2021-05-25 05:57] LABS: CALCIUM 8.4 mg/dL (8.4-10.5); CARBON DIOXIDE 38.6 mmol/L (20.0-32)
[2021-05-25] MEDS ORDERED: HUMALOG ONE (06:07)
[2021-05-25 06:14] LABS: LYMPHOCYTE 3 % (25-36); MONOCYTE 2 % (3-9); SEGMENTED NEUTROPHILS 95 % (31-76)
[2021-05-25] MEDS: SOLU-MEDROL IV SCH ×3 (06:15→21:45)
[2021-05-25] MEDS ORDERED: NS 100ML 100 ML IV ONE (06:51)
--- NOTE | 2021-05-25 07:14 | NUR ---
REPORT GIVEN TO KULDIP BURKETT
[2021-05-25 07:30] LABS: ABG PCO2 95.1 mmHg (35.0-45.0); ABG PH 7.224 (7.350-7.450); BE(B) 8.9 mmol/L (-2.0-2.0); HCO3act 38.4 mmol/L (22.0-26.0); pO2 45.6 mmHg (80.0-100.0)
[2021-05-25] MEDS: HUMULIN R SQ SCH ×3 (07:50→17:30)
[2021-05-25] MEDS: LASIX IV SCH (08:05)
[2021-05-25] MEDS: LOVENOX SQ SCH ×2 (08:05→21:45)
[2021-05-25] MEDS: PEPCID IV SCH ×2 (08:06→21:45)
[2021-05-25] MEDS: CEPHULAC NG SCH (08:06)
[2021-05-25] MEDS ORDERED: WATER ONE (08:23)
[2021-05-25] MEDS: PRECEDEX 400 MCG/100 ML INJECT 100 ML IV SCH ×2 (08:31→11:18)
--- NOTE | 2021-05-25 08:31 | TELE.CONS ---
Consultation Reason for Consult: Reason for Consultation: Covid, resp failure History of Present Illness Vitals & Lab Vital Signs Date Time Temp Pulse Resp B/P (MAP) Pulse Ox O2 Delivery O2 Flow Rate FiO2 05/25/21 08:05 129/62 Review of Systems Allergies: Coded Allergies: ibuprofen (Verified Allergy, Unknown, 04/29/21) naproxen (Verified Allergy, Unknown, 04/29/21) VITALS REVIEW VITALS Vital Sign - Last 24 Hours 05/25/21 05/25/21 05/25/21 05/25/21 07:00 07:15 07:30 07:44 Temp 98.6 98.4 98.4 Pulse 98 99 102 Resp 31 B/P (MAP) 100/48 (65) 99/49 (66) 109/53 (71) Pulse Ox 87 87 88 FiO2 90 05/25/21 05/25/21 05/25/21 05/25/21 07:44 07:45 08:00 08:05 Temp 98.6 98.6 Pulse 108 108 Resp 30 31 B/P (MAP) 114/56 (75) 115/67 (83) 129/62 112/55 (74) Pulse Ox 89 89 O2 Delivery Mechanical Ventilator 05/25/21 05/25/21 08:15 08:30 Temp 98.6 98.6 Pulse 103 109 Resp 30 B/P (MAP) 134/62 (86) 126/62 (83) Pulse Ox 91 91 LABS LAB RESULTS Laboratory Tests Test 04/29/21 04:35 04/30/21 04:28 05/01/21 04:32 05/01/21 11:20 White Blood Count 6.2 10^3/uL 6.4 10^3/uL 10.2 10^3/uL Red Blood Count 4.64 10^6/uL 4.49 10^6/uL 4.50 10^6/uL Hemoglobin 13.5 g/dL 13.3 g/dL 13.3 g/dL Hematocrit 41.2 % 39.3 % 39.6 % Mean Corpuscular Volume 88.8 fL 87.5 fL 88.0 fL Mean Corpuscular Hemoglobin 29.1 pg 29.6 pg 29.6 pg Mean Corpuscular Hemoglobin Concent 32.8 g/dL 33.8 g/dL 33.6 g/dL Red Cell Distribution Width 12.5 % 12.1 % 12.1 % Platelet Count 162 10^3/uL 195 10^3/uL 234 10^3/uL Mean Platelet Volume 10.9 fL 10.8 fL 10.4 fL Neutrophils (%) (Auto) 72.3 % 70.8 % Lymphocytes (%) (Auto) 19.0 % 20.6 % Monocytes (%) (Auto) 8.4 % 8.4 % Neutrophils # (Auto) 4.5 10^3/uL 4.5 10^3/uL Lymphocytes # (Auto) 1.17 10^3/uL1 1.32 10^3/uL1 Monocytes # (Auto) 0.5 10^3/uL 0.5 10^3/uL Absolute Immature Granulocyte (auto 0.02 10^3 u/L 0.04 10^3 u/L Absolute Eosinophils (auto) 0.0 10^3/uL 0.0 10^3/uL Immature Granulocytes % 0.30 % 0.60 % Eosinophils % 0.0 % 0.0 % Basophils % 0.0 % 0.2 % Basophils # 0.0 10^3/uL 0.0 10^3/uL Sodium Level 141 mmol/L 142 mmol/L 139 mmol/L Potassium Level 4.0 mmol/L 3.9 mmol/L 3.9 mmol/L Chloride Level 106.0 mmol/L 106.0 mmol/L 105.0 mmol/L Carbon Dioxide Level 25.2 mmol/L 26.2 mmol/L 26.8 mmol/L Anion Gap 13.8 13.7 11.1 Blood Urea Nitrogen 12 mg/dL 17 mg/dL 12 mg/dL Creatinine 0.65 mg/dL 0.54 mg/dL 0.56 mg/dL Estimated GFR () 124.8 154.6 148.2 Est GFR (CKD-EPI)(Non-Afr [place]) 103.1 127.7 122.5 BUN/Creatinine Ratio 18.0 31.0 21.0 Glucose Level 98 mg/dL 92 mg/dL 87 mg/dL Calcium Level 8.6 mg/dL 8.4 mg/dL 8.8 mg/dL Total Bilirubin 0.5 mg/dL 0.5 mg/dL 0.5 mg/dL Aspartate Amino Transf (AST/SGOT) 42 U/L 40 U/L 36 U/L Alanine Aminotransferase (ALT/SGPT) 47 U/L 42 U/L 39 U/L Alkaline Phosphatase 47 U/L 43 U/L 43 U/L Total Protein 6.6 g/dL 6.6 g/dL 6.7 g/dL Albumin 2.6 g/dL 2.5 g/dL 2.5 g/dL Globulin 4.0 4.1 4.2 Albumin/Globulin Ratio 0.650 0.609 0.595 Serum HCG, Qualitative NEGATIVE Blood Gas Sample Site RT RADIAL ARTERY Blood Gas pH 7.459 Blood Gas PCO2 31.9 mmHg Blood Gas PO2 86.7 mmHg Blood Gas HCO3 22.1 mmol/L Blood Gas Base Excess -0.8 mmol/L Lucas Test POSITIVE Arterial Blood Oxygen Saturation 96.2 % Deoxyhemoglobin 3.8 % Carboxyhemoglobin 0.1 % Methemoglobin 0.1 % Total Hemoglobin 14.8 % Total Oxygen Concentration 20.0 % Blood Gas Temperature 37.0 Oxygen Delivery Method (LAB) BIPAP Blood Gas Vent Mode ST FiO2 80 % Total Carbon Dioxide 23.1 mmol/L Test 05/02/21 06:37 05/02/21 08:25 05/03/21 05:20 05/03/21 07:55 White Blood Count 7.6 10^3/uL 12.0 10^3/uL Red Blood Count 4.62 10^6/uL 4.71 10^6/uL Hemoglobin 13.6 g/dL 13.6 g/dL Hematocrit 40.6 % 41.1 % Mean Corpuscular Volume 87.9 fL 87.3 fL Mean Corpuscular Hemoglobin 29.4 pg 28.9 pg Mean Corpuscular Hemoglobin Concent 33.5 g/dL 33.1 g/dL Red Cell Distribution Width 12.0 % 11.9 % Platelet Count 268 10^3/uL 338 10^3/uL Mean Platelet Volume 10.5 fL 10.2 fL Neutrophils (%) (Auto) 82.9 % 83.2 % Lymphocytes (%) (Auto) 11.7 % 10.3 % Monocytes (%) (Auto) 5.4 % 5.1 % Neutrophils # (Auto) 6.3 10^3/uL 10.0 10^3/uL Lymphocytes # (Auto) 0.89 10^3/uL1 1.24 10^3/uL1 Monocytes # (Auto) 0.4 10^3/uL 0.6 10^3/uL Absolute Immature Granulocyte (auto 0.12 10^3 u/L 0.14 10^3 u/L Absolute Eosinophils (auto) 0.0 10^3/uL 0.0 10^3/uL Immature Granulocytes % 1.60 % 1.20 % Eosinophils % 0.0 % 0.1 % Basophils % 0.0 % 0.1 % Basophils # 0.0 10^3/uL 0.0 10^3/uL Sodium Level 140 mmol/L 140 mmol/L Potassium Level 4.7 mmol/L 4.3 mmol/L Chloride Level 104.0 mmol/L 103.0 mmol/L Carbon Dioxide Level 27.6 mmol/L 28.1 mmol/L Anion Gap 13.1 13.2 Blood Urea Nitrogen 14 mg/dL 18 mg/dL Creatinine 0.62 mg/dL 0.65 mg/dL Estimated GFR () 131.8 124.8 Est GFR (CKD-EPI)(Non-Afr [place]) 108.9 103.1 BUN/Creatinine Ratio 22.0 27.0 Glucose Level 121 mg/dL 107 mg/dL Calcium Level 8.8 mg/dL 8.9 mg/dL Total Bilirubin 0.4 mg/dL 0.6 mg/dL Aspartate Amino Transf (AST/SGOT) 26 U/L 26 U/L Alanine Aminotransferase (ALT/SGPT) 37 U/L 31 U/L Alkaline Phosphatase 42 U/L 41 U/L Total Protein 6.7 g/dL 6.8 g/dL Albumin 2.5 g/dL 2.6 g/dL Globulin 4.2 4.2 Albumin/Globulin Ratio 0.595 0.619 Blood Gas Sample Site RT RADIAL ARTERY LEFT RADIAL ARTERY Blood Gas pH 7.405 7.416 Blood Gas PCO2 41.1 mmHg 37.1 mmHg Blood Gas PO2 82.5 mmHg 149.3 mmHg Blood Gas HCO3 25.2 mmol/L 23.3 mmol/L Blood Gas Base Excess 0.4 mmol/L -0.8 mmol/L Lucas Test POSITIVE POSITIVE Arterial Blood Oxygen Saturation 95.5 % 98.7 % Deoxyhemoglobin 4.5 % 1.3 % Carboxyhemoglobin 0.6 % 0.4 % Methemoglobin 0.3 % 0.5 % Total Hemoglobin 14.6 % 14.5 % Total Oxygen Concentration 19.5 % 20.2 % Blood Gas Temperature 37 37.00 Oxygen Delivery Method (LAB) BIPAP15/7 BP 15/7 FiO2 99 % 100 % Total Carbon Dioxide 26.4 mmol/L 24.4 mmol/L Blood Gas Vent Mode S/T Test 05/03/21 10:10 05/04/21 10:08 05/05/21 05:08 05/06/21 04:30 D-Dimer 1.21 mg/L 5.32 mg/L Ferritin 697 ng/mL 724 ng/mL Lactate Dehydrogenase 329 U/L White Blood Count 17.0 10^3/uL 14.0 10^3/uL 15.9 10^3/uL Red Blood Count 4.46 10^6/uL 4.70 10^6/uL 4.43 10^6/uL Hemoglobin 12.9 g/dL 13.7 g/dL 13.2 g/dL Hematocrit 38.9 % 41.0 % 39.1 % Mean Corpuscular Volume 87.2 fL 87.2 fL 88.3 fL Mean Corpuscular Hemoglobin 28.9 pg 29.1 pg 29.8 pg Mean Corpuscular Hemoglobin Concent 33.2 g/dL 33.4 g/dL 33.8 g/dL Red Cell Distribution Width 11.8 % 11.9 % 12.0 % Platelet Count 334 10^3/uL 309 10^3/uL 290 10^3/uL Mean Platelet Volume 10.0 fL 9.8 fL 9.8 fL Neutrophils (%) (Auto) 90.6 % 88.5 % 87.7 % Lymphocytes (%) (Auto) 4.4 % 7.5 % 8.3 % Monocytes (%) (Auto) 3.9 % 3.3 % 3.5 % Neutrophils # (Auto) 15.4 10^3/uL 12.3 10^3/uL 13.9 10^3/uL Lymphocytes # (Auto) 0.75 10^3/uL1 1.05 10^3/uL1 1.32 10^3/uL1 Monocytes # (Auto) 0.7 10^3/uL 0.5 10^3/uL 0.6 10^3/uL Absolute Immature Granulocyte (auto 0.16 10^3 u/L 0.19 10^3 u/L 0.16 10^3 u/L Absolute Eosinophils (auto) 0.0 10^3/uL 0.1 10^3/uL 0.1 10^3/uL Immature Granulocytes % 0.90 % 1.40 % 1.00 % Eosinophils % 0.1 % 0.6 % 0.4 % Basophils % 0.1 % 0.1 % 0.1 % Basophils # 0.0 10^3/uL 0.0 10^3/uL 0.0 10^3/uL Sodium Level 135 mmol/L 137 mmol/L 138 mmol/L Potassium Level 3.9 mmol/L 3.6 mmol/L 3.8 mmol/L Chloride Level 102.0 mmol/L 102.0 mmol/L 103.0 mmol/L Carbon Dioxide Level 25.7 mmol/L 26.8 mmol/L 27.1 mmol/L Anion Gap 11.2 11.8 11.7 Blood Urea Nitrogen 20 mg/dL 13 mg/dL 14 mg/dL Creatinine 0.75 mg/dL 0.62 mg/dL 0.66 mg/dL Estimated GFR () 105.8 131.8 122.6 Est GFR (CKD-EPI)(Non-Afr [place]) 87.4 108.9 101.3 BUN/Creatinine Ratio 26.0 20.0 21.0 Glucose Level 135 mg/dL 86 mg/dL 96 mg/dL Calcium Level 8.8 mg/dL 8.8 mg/dL 8.8 mg/dL Total Bilirubin 0.8 mg/dL 0.8 mg/dL 0.9 mg/dL Aspartate Amino Transf (AST/SGOT) 33 U/L 35 U/L 30 U/L Alanine Aminotransferase (ALT/SGPT) 34 U/L 34 U/L 39 U/L Alkaline Phosphatase 43 U/L 41 U/L 49 U/L Total Protein 6.8 g/dL 6.7 g/dL 6.9 g/dL Albumin 2.5 g/dL 2.4 g/dL 2.4 g/dL Globulin 4.3 4.3 4.5 Albumin/Globulin Ratio 0.581 0.558 0.533 Test 05/06/21 07:27 05/06/21 19:40 05/06/21 21:55 05/07/21 04:13 Blood Gas Sample Site RT BRACIAL ARTERY LEFT RADIAL ARTERY RT RADIAL ARTERY Blood Gas pH 7.452 7.478 7.473 Blood Gas PCO2 35.8 mmHg 40.1 mmHg 36.9 mmHg Blood Gas PO2 45.9 mmHg 54.5 mmHg 38.1 mmHg Blood Gas HCO3 24.4 mmol/L 29.1 mmol/L 26.4 mmol/L Blood Gas Base Excess 0.8 mmol/L 5.2 mmol/L 2.9 mmol/L Lucas Test N/A POSITIVE POSITIVE Arterial Blood Oxygen Saturation 82.3 % 87.3 % 71.2 % Deoxyhemoglobin 17.6 % 12.5 % 28.5 % Carboxyhemoglobin 0.2 % 0.9 % 0.7 % Methemoglobin 0.2 % 0.4 % 0.4 % Total Hemoglobin 13.5 % 13.5 % 13.2 % Total Oxygen Concentration 15.5 % 16.3 % 13.0 % Oxygen Delivery Method (LAB) CF 50LPM BIPAP 15/7 VENT FiO2 100 % 100 % 100 % Total Carbon Dioxide 25.5 mmol/L 30.3 mmol/L 27.6 mmol/L Blood Gas Temperature 37 37 Blood Gas Vent Mode AC Blood Gas Vent Rate 14 Blood Gas Tidal Volume 400 ML Blood Gas PEEP 12 CMH2O White Blood Count 16.3 10^3/uL Red Blood Count 4.35 10^6/uL Hemoglobin 12.8 g/dL Hematocrit 38.4 % Mean Corpuscular Volume 88.3 fL Mean Corpuscular Hemoglobin 29.4 pg Mean Corpuscular Hemoglobin Concent 33.3 g/dL Red Cell Distribution Width 12.0 % Platelet Count 268 10^3/uL Mean Platelet Volume 9.9 fL Neutrophils (%) (Auto) 89.4 % Lymphocytes (%) (Auto) 6.1 % Monocytes (%) (Auto) 4.3 % Neutrophils # (Auto) 14.6 10^3/uL Lymphocytes # (Auto) 0.99 10^3/uL1 Monocytes # (Auto) 0.7 10^3/uL Absolute Immature Granulocyte (auto 0.14 10^3 u/L Absolute Eosinophils (auto) 0.0 10^3/uL Immature Granulocytes % 0.90 % Eosinophils % 0.1 % Basophils % 0.1 % Basophils # 0.0 10^3/uL Sodium Level 141 mmol/L Potassium Level 4.3 mmol/L Chloride Level 105.0 mmol/L Carbon Dioxide Level 29.2 mmol/L Anion Gap 11.1 Blood Urea Nitrogen 15 mg/dL Creatinine 0.68 mg/dL Estimated GFR () 118.5 Est GFR (CKD-EPI)(Non-Afr [place]) 97.9 BUN/Creatinine Ratio 22.0 Glucose Level 108 mg/dL Calcium Level 9.0 mg/dL Total Bilirubin 0.7 mg/dL Aspartate Amino Transf (AST/SGOT) 27 U/L Alanine Aminotransferase (ALT/SGPT) 39 U/L Alkaline Phosphatase 50 U/L Total Protein 6.8 g/dL Albumin 2.2 g/dL Globulin 4.6 Albumin/Globulin Ratio 0.478 Procalcitonin 0.08 ng/mL Test 05/07/21 05:02 05/07/21 06:35 05/07/21 18:09 05/08/21 00:56 Differential Total Cells Counted 100 #CELLS Segmented Neutrophils 85 % Lymphocytes 12 % Monocytes 3 % Platelet Estimate ADEQUATE Platelet Morphology NORMAL Blood Gas Sample Site RT RADIAL ARTERY Blood Gas pH 7.338 Blood Gas PCO2 48.1 mmHg Blood Gas PO2 51.4 mmHg Blood Gas HCO3 25.3 mmol/L Blood Gas Base Excess -1.0 mmol/L Lucas Test POSITIVE Arterial Blood Oxygen Saturation 82.7 % Deoxyhemoglobin 17.2 % Carboxyhemoglobin 0.4 % Methemoglobin 0.1 % Total Hemoglobin 14.5 % Total Oxygen Concentration 16.7 % Blood Gas Temperature 37 Oxygen Delivery Method (LAB) VENT Blood Gas Vent Mode AC Blood Gas Vent Rate 14 FiO2 100 % Blood Gas Tidal Volume 400 ML Blood Gas PEEP 12 CMH2O Total Carbon Dioxide 26.7 mmol/L Bedside Glucose 157 147 Test 05/08/21 04:28 05/08/21 05:50 05/08/21 17:50 05/08/21 23:51 White Blood Count 17.7 10^3/uL Red Blood Count 4.52 10^6/uL Hemoglobin 13.2 g/dL Hematocrit 41.6 % Mean Corpuscular Volume 92.0 fL Mean Corpuscular Hemoglobin 29.2 pg Mean Corpuscular Hemoglobin Concent 31.7 g/dL Red Cell Distribution Width 12.5 % Platelet Count 291 10^3/uL Mean Platelet Volume 10.2 fL Neutrophils (%) (Auto) 93.7 % Lymphocytes (%) (Auto) 4.5 % Monocytes (%) (Auto) 1.8 % Neutrophils # (Auto) 16.6 10^3/uL Lymphocytes # (Auto) 0.79 10^3/uL1 Monocytes # (Auto) 0.3 10^3/uL Absolute Immature Granulocyte (auto 0.11 10^3 u/L Absolute Eosinophils (auto) 0.0 10^3/uL Immature Granulocytes % 0.60 % Eosinophils % 0.0 % Basophils % 0.0 % Basophils # 0.0 10^3/uL Sodium Level 147 mmol/L Potassium Level 4.1 mmol/L Chloride Level 109.0 mmol/L Carbon Dioxide Level 30.6 mmol/L Anion Gap 11.5 Blood Urea Nitrogen 18 mg/dL Creatinine 0.65 mg/dL Estimated GFR () 124.8 Est GFR (CKD-EPI)(Non-Afr [place]) 103.1 BUN/Creatinine Ratio 27.0 Glucose Level 145 mg/dL Calcium Level 9.2 mg/dL Total Bilirubin 0.6 mg/dL Aspartate Amino Transf (AST/SGOT) 41 U/L Alanine Aminotransferase (ALT/SGPT) 68 U/L Alkaline Phosphatase 67 U/L Total Protein 7.1 g/dL Albumin 2.3 g/dL Globulin 4.8 Albumin/Globulin Ratio 0.479 Blood Gas Sample Site LEFT RADIAL ARTERY Blood Gas pH 7.365 Blood Gas PCO2 53.4 mmHg Blood Gas PO2 48.1 mmHg Blood Gas HCO3 29.8 mmol/L Blood Gas Base Excess 3.1 mmol/L Lucas Test POSITIVE Arterial Blood Oxygen Saturation 79.8 % Deoxyhemoglobin 20.0 % Carboxyhemoglobin 0.6 % Methemoglobin 0.4 % Total Hemoglobin 15.4 % Total Oxygen Concentration 17.1 % FiO2 100 % Blood Gas PEEP 12.0 CMH2O Total Carbon Dioxide 31.5 mmol/L Bedside Glucose 142 131 Test 05/09/21 04:20 05/09/21 07:35 05/09/21 18:10 05/09/21 20:10 White Blood Count 22.5 10^3/uL Red Blood Count 4.39 10^6/uL Hemoglobin 13.0 g/dL Hematocrit 40.7 % Mean Corpuscular Volume 92.7 fL Mean Corpuscular Hemoglobin 29.6 pg Mean Corpuscular Hemoglobin Concent 31.9 g/dL Red Cell Distribution Width 12.6 % Platelet Count 330 10^3/uL Mean Platelet Volume 10.1 fL Neutrophils (%) (Auto) 92.6 % Lymphocytes (%) (Auto) 4.1 % Monocytes (%) (Auto) 3.3 % Neutrophils # (Auto) 20.8 10^3/uL Lymphocytes # (Auto) 0.92 10^3/uL1 Monocytes # (Auto) 0.8 10^3/uL Absolute Immature Granulocyte (auto 0.10 10^3 u/L Absolute Eosinophils (auto) 0.0 10^3/uL Immature Granulocytes % 0.40 % Eosinophils % 0.0 % Basophils % 0.0 % Basophils # 0.0 10^3/uL Sodium Level 148 mmol/L Potassium Level 4.2 mmol/L Chloride Level 109.0 mmol/L Carbon Dioxide Level 30.9 mmol/L Anion Gap 12.3 Blood Urea Nitrogen 18 mg/dL Creatinine 0.65 mg/dL Estimated GFR () 124.8 Est GFR (CKD-EPI)(Non-Afr [place]) 103.1 BUN/Creatinine Ratio 27.0 Glucose Level 142 mg/dL Calcium Level 8.6 mg/dL Total Bilirubin 0.8 mg/dL Aspartate Amino Transf (AST/SGOT) 38 U/L Alanine Aminotransferase (ALT/SGPT) 55 U/L Alkaline Phosphatase 70 U/L Total Protein 6.9 g/dL Albumin 2.1 g/dL Globulin 4.8 Albumin/Globulin Ratio 0.437 Procalcitonin 0.06 ng/mL Blood Gas Sample Site RT BRACIAL ARTERY RT BRACIAL ARTERY Blood Gas pH 7.387 7.426 Blood Gas PCO2 48.3 mmHg 46.7 mmHg Blood Gas PO2 57.0 mmHg 49.5 mmHg Blood Gas HCO3 28.4 mmol/L 30.0 mmol/L Blood Gas Base Excess 2.6 mmol/L 4.8 mmol/L Lucas Test POSITIVE POSITIVE Arterial Blood Oxygen Saturation 88.1 % 83.6 % Deoxyhemoglobin 11.9 % 16.2 % Carboxyhemoglobin 0.1 % 0.9 % Methemoglobin 0.1 % 0.5 % Total Hemoglobin 13.6 % 13.9 % Total Oxygen Concentration 16.8 % 16.1 % Blood Gas Temperature 37 37 Oxygen Delivery Method (LAB) VENT VENT Blood Gas Vent Mode AC AC Blood Gas Vent Rate 14 22 FiO2 100 % 100 % Blood Gas Tidal Volume 400 ML 320 ML Blood Gas PEEP 12 CMH2O 12 CMH2O Total Carbon Dioxide 29.9 mmol/L 31.5 mmol/L Bedside Glucose 118 Test 05/09/21 23:58 8/14/21 05:00 05/10/21 05:20 05/10/21 05:44 Bedside Glucose 113 Blood Gas Sample Site LEFT RADIAL ARTERY Blood Gas pH 7.365 Blood Gas PCO2 56.9 mmHg Blood Gas PO2 54.0 mmHg Blood Gas HCO3 31.8 mmol/L Blood Gas Base Excess 5.0 mmol/L Lucas Test POSITIVE Arterial Blood Oxygen Saturation 84.6 % Deoxyhemoglobin 15.2 % Carboxyhemoglobin 0.7 % Methemoglobin 0.3 % Total Hemoglobin 12.6 % Total Oxygen Concentration 14.8 % Blood Gas Temperature 37.0 Oxygen Delivery Method (LAB) VENTILATOR Blood Gas Vent Mode AC+ Blood Gas Vent Rate 28 FiO2 100 % Blood Gas Tidal Volume 320 ML Blood Gas PEEP 14.0 CMH2O Total Carbon Dioxide 33.5 mmol/L White Blood Count 13.9 10^3/uL Red Blood Count 4.20 10^6/uL Hemoglobin 12.4 g/dL Hematocrit 39.1 % Mean Corpuscular Volume 93.1 fL Mean Corpuscular Hemoglobin 29.5 pg Mean Corpuscular Hemoglobin Concent 31.7 g/dL Red Cell Distribution Width 12.4 % Platelet Count 201 10^3/uL Mean Platelet Volume 10.3 fL Neutrophils (%) (Auto) 93.0 % Lymphocytes (%) (Auto) 4.7 % Monocytes (%) (Auto) 2.3 % Neutrophils # (Auto) 13.0 10^3/uL Lymphocytes # (Auto) 0.65 10^3/uL1 Monocytes # (Auto) 0.3 10^3/uL Absolute Immature Granulocyte (auto 0.05 10^3 u/L Absolute Eosinophils (auto) 0.0 10^3/uL Immature Granulocytes % 0.40 % Eosinophils % 0.0 % Basophils % 0.0 % Basophils # 0.0 10^3/uL Sodium Level 143 mmol/L Potassium Level 4.2 mmol/L Chloride Level 107.0 mmol/L Carbon Dioxide Level 31.5 mmol/L Anion Gap 8.7 Blood Urea Nitrogen 14 mg/dL Creatinine 0.51 mg/dL Estimated GFR () 165.1 Est GFR (CKD-EPI)(Non-Afr [place]) 136.5 BUN/Creatinine Ratio 27.0 Glucose Level 146 mg/dL Calcium Level 8.7 mg/dL Total Bilirubin 0.6 mg/dL Aspartate Amino Transf (AST/SGOT) 35 U/L Alanine Aminotransferase (ALT/SGPT) 56 U/L Alkaline Phosphatase 61 U/L Total Protein 6.3 g/dL Albumin 2.1 g/dL Globulin 4.2 Albumin/Globulin Ratio 0.500 Triglycerides Level 207 mg/dL Segmented Neutrophils 98 % Lymphocytes 1 % Monocytes 1 % Platelet Estimate ADEQUATE Platelet Morphology NORMAL Test 05/10/21 12:40 05/10/21 17:57 05/11/21 00:01 05/11/21 05:20 Bedside Glucose 136 135 120 White Blood Count 15.3 10^3/uL Red Blood Count 4.32 10^6/uL Hemoglobin 12.8 g/dL Hematocrit 39.8 % Mean Corpuscular Volume 92.1 fL Mean Corpuscular Hemoglobin 29.6 pg Mean Corpuscular Hemoglobin Concent 32.2 g/dL Red Cell Distribution Width 12.2 % Platelet Count 222 10^3/uL Mean Platelet Volume 10.7 fL Neutrophils (%) (Auto) 93.0 % Lymphocytes (%) (Auto) 4.0 % Monocytes (%) (Auto) 3.0 % Neutrophils # (Auto) 14.3 10^3/uL Lymphocytes # (Auto) 0.61 10^3/uL1 Monocytes # (Auto) 0.5 10^3/uL Absolute Immature Granulocyte (auto 0.06 10^3 u/L Absolute Eosinophils (auto) 0.0 10^3/uL Immature Granulocytes % 0.40 % Eosinophils % 0.0 % Basophils % 0.0 % Basophils # 0.0 10^3/uL Sodium Level 145 mmol/L Potassium Level 3.6 mmol/L Chloride Level 105.0 mmol/L Carbon Dioxide Level 35.6 mmol/L Anion Gap 8.0 Blood Urea Nitrogen 18 mg/dL Creatinine 0.59 mg/dL Estimated GFR () 139.6 Est GFR (CKD-EPI)(Non-Afr [place]) 115.3 BUN/Creatinine Ratio 30.0 Glucose Level 129 mg/dL Calcium Level 8.7 mg/dL Total Bilirubin 0.6 mg/dL Aspartate Amino Transf (AST/SGOT) 37 U/L Alanine Aminotransferase (ALT/SGPT) 54 U/L Alkaline Phosphatase 78 U/L Total Protein 6.5 g/dL Albumin 2.2 g/dL Globulin 4.3 Albumin/Globulin Ratio 0.511 Test 05/11/21 06:03 8/15/21 08:10 05/11/21 12:16 05/11/21 15:51 Segmented Neutrophils 97 % Lymphocytes 1 % Monocytes 2 % Platelet Estimate ADEQUATE Platelet Morphology NORMAL Blood Gas Sample Site LEFT RADIAL ARTERY Blood Gas pH 7.399 Blood Gas PCO2 54.2 mmHg Blood Gas PO2 53.9 mmHg Blood Gas HCO3 32.7 mmol/L Blood Gas Base Excess 6.4 mmol/L Lucas Test POSITIVE Arterial Blood Oxygen Saturation 85.4 % Deoxyhemoglobin 14.5 % Carboxyhemoglobin 0.3 % Methemoglobin 0.2 % Total Hemoglobin 13.5 % Total Oxygen Concentration 16.1 % Blood Gas Temperature 37 Oxygen Delivery Method (LAB) VENTILATOR Blood Gas Vent Mode AC VC+ Blood Gas Vent Rate 26 FiO2 100 % Blood Gas Tidal Volume 320 ML Blood Gas PEEP 14.0 CMH2O Total Carbon Dioxide 34.4 mmol/L Bedside Glucose 114 Urine Collection Type CATH Urine Color YELLOW Urine Appearance CLEAR Urine Bilirubin SMALL Urine Ictotest NEGATIVE Urine Ketones NEGATIVE Urine Specific [place] >=1.030 Urine pH 6.0 Urine Protein TRACE Urine Urobilinogen >=8.0 E.U./dL Urine Nitrate NEGATIVE Urine Leukocyte Esterase NEGATIVE Urine Glucose (Auto)(UA) NEGATIVE Urine Blood NEGATIVE Urine RBC 0-2 RBC/HPF Urine WBC 2-5 WBC/HPF Urine Squamous Epithelial Cells FEW #/HPF Urine Bacteria RARE Test 05/11/21 18:13 05/12/21 03:04 05/12/21 05:00 05/12/21 05:10 Bedside Glucose 119 Blood Gas Sample Site RT RADIAL ARTERY RT RADIAL ARTERY Blood Gas pH 7.232 7.370 Blood Gas PCO2 103.1 mmHg 71.8 mmHg Blood Gas PO2 64.8 mmHg 58.0 mmHg Blood Gas HCO3 42.4 mmol/L 40.6 mmol/L Blood Gas Base Excess 10.7 mmol/L 11.8 mmol/L Lucas Test POSITIVE POSITIVE Arterial Blood Oxygen Saturation 86.7 % 84.5 % Deoxyhemoglobin 13.1 % 15.5 % Carboxyhemoglobin 0.8 % 0.2 % Methemoglobin 0.5 % 0.1 % Total Hemoglobin 13.2 % 13.7 % Total Oxygen Concentration 15.9 % 16.2 % Oxygen Delivery Method (LAB) VENTILATOR VENTILATOR Blood Gas Vent Mode AC+ AC+ Blood Gas Vent Rate 26 32 FiO2 100 % 100 % Blood Gas Tidal Volume 320 ML 320 ML Blood Gas PEEP 14.0 CMH2O 14.0 CMH2O Total Carbon Dioxide 45.6 mmol/L 42.8 mmol/L Blood Gas Temperature 37.0 White Blood Count 13.9 10^3/uL Red Blood Count 4.46 10^6/uL Hemoglobin 12.9 g/dL Hematocrit 41.6 % Mean Corpuscular Volume 93.3 fL Mean Corpuscular Hemoglobin 28.9 pg Mean Corpuscular Hemoglobin Concent 31.0 g/dL Red Cell Distribution Width 12.2 % Platelet Count 197 10^3/uL Mean Platelet Volume 11.1 fL Neutrophils (%) (Auto) 94.4 % Lymphocytes (%) (Auto) 3.0 % Monocytes (%) (Auto) 1.8 % Neutrophils # (Auto) 13.1 10^3/uL Lymphocytes # (Auto) 0.41 10^3/uL1 Monocytes # (Auto) 0.3 10^3/uL Absolute Immature Granulocyte (auto 0.10 10^3 u/L Absolute Eosinophils (auto) 0.0 10^3/uL Immature Granulocytes % 0.70 % Eosinophils % 0.1 % Basophils % 0.0 % Basophils # 0.0 10^3/uL Prothrombin Time 10.8 SEC Prothrombin Time INR (Non-Therap) 1.0 Activated Partial Thromboplast Time 24.7 SEC Sodium Level 148 mmol/L Potassium Level 3.7 mmol/L Chloride Level 105.0 mmol/L Carbon Dioxide Level 39.0 mmol/L Anion Gap 7.7 Blood Urea Nitrogen 22 mg/dL Creatinine 0.51 mg/dL Estimated GFR () 165.1 Est GFR (CKD-EPI)(Non-Afr [place]) 136.5 BUN/Creatinine Ratio 43.0 Glucose Level 156 mg/dL Hemoglobin A1c 6.5 % Calcium Level 8.7 mg/dL Phosphorus Level 4.3 mg/dL Magnesium Level 2.3 mg/dL Total Bilirubin 0.5 mg/dL Aspartate Amino Transf (AST/SGOT) 38 U/L Alanine Aminotransferase (ALT/SGPT) 60 U/L Alkaline Phosphatase 83 U/L Total Protein 6.7 g/dL Albumin 2.0 g/dL Globulin 4.7 Albumin/Globulin Ratio 0.425 Triglycerides Level 261 mg/dL Test 05/12/21 06:15 05/12/21 12:23 05/12/21 18:25 05/13/21 00:02 Differential Total Cells Counted 100 #CELLS Segmented Neutrophils 95 % Lymphocytes 3 % Monocytes 2 % Platelet Estimate ADEQUATE Platelet Morphology NORMAL Anisocytosis 1+ Bedside Glucose 132 110 170 Test 05/13/21 04:24 05/13/21 04:25 05/13/21 12:22 05/13/21 18:13 White Blood Count 13.3 10^3/uL Red Blood Count 4.23 10^6/uL Hemoglobin 12.6 g/dL Hematocrit 39.6 % Mean Corpuscular Volume 93.6 fL Mean Corpuscular Hemoglobin 29.8 pg Mean Corpuscular Hemoglobin Concent 31.8 g/dL Red Cell Distribution Width 12.1 % Platelet Count 204 10^3/uL Mean Platelet Volume 10.4 fL Neutrophils (%) (Auto) 95.0 % Lymphocytes (%) (Auto) 3.2 % Monocytes (%) (Auto) 1.5 % Neutrophils # (Auto) 12.7 10^3/uL Lymphocytes # (Auto) 0.43 10^3/uL1 Monocytes # (Auto) 0.2 10^3/uL Absolute Immature Granulocyte (auto 0.06 10^3 u/L Absolute Eosinophils (auto) 0.0 10^3/uL Immature Granulocytes % 0.50 % Eosinophils % 0.2 % Basophils % 0.1 % Basophils # 0.0 10^3/uL Sodium Level 147 mmol/L Potassium Level 4.0 mmol/L Chloride Level 105.0 mmol/L Carbon Dioxide Level 38.6 mmol/L Anion Gap 7.4 Blood Urea Nitrogen 20 mg/dL Creatinine 0.49 mg/dL Estimated GFR () 172.9 Est GFR (CKD-EPI)(Non-Afr [place]) 142.9 BUN/Creatinine Ratio 40.0 Glucose Level 165 mg/dL Calcium Level 8.5 mg/dL Phosphorus Level 2.5 mg/dL Magnesium Level 2.3 mg/dL Total Bilirubin 0.5 mg/dL Aspartate Amino Transf (AST/SGOT) 25 U/L Alanine Aminotransferase (ALT/SGPT) 48 U/L Alkaline Phosphatase 70 U/L Total Protein 6.6 g/dL Albumin 2.1 g/dL Globulin 4.5 Albumin/Globulin Ratio 0.466 Blood Gas Sample Site ART LINE Blood Gas pH 7.389 Blood Gas PCO2 61.8 mmHg Blood Gas PO2 52.5 mmHg Blood Gas HCO3 36.5 mmol/L Blood Gas Base Excess 9.3 mmol/L Arterial Blood Oxygen Saturation 84.4 % Deoxyhemoglobin 15.4 % Carboxyhemoglobin 0.6 % Methemoglobin 0.5 % Total Hemoglobin 13.0 % Total Oxygen Concentration 15.3 % Blood Gas Temperature 37.0 Oxygen Delivery Method (LAB) VENTILATOR Blood Gas Vent Mode AC+ Blood Gas Vent Rate 32 FiO2 100 % Blood Gas Tidal Volume 320 ML Blood Gas PEEP 14.0 CMH2O Total Carbon Dioxide 38.4 mmol/L Triglycerides Level 271 mg/dL Bedside Glucose 147 128 Test 05/14/21 04:30 05/14/21 04:35 05/14/21 12:00 05/14/21 12:10 White Blood Count 16.1 10^3/uL Red Blood Count 4.69 10^6/uL Hemoglobin 13.8 g/dL Hematocrit 44.3 % Mean Corpuscular Volume 94.5 fL Mean Corpuscular Hemoglobin 29.4 pg Mean Corpuscular Hemoglobin Concent 31.2 g/dL Red Cell Distribution Width 12.2 % Platelet Count 253 10^3/uL Mean Platelet Volume 10.9 fL Sodium Level 146 mmol/L Potassium Level 4.1 mmol/L Chloride Level 104.0 mmol/L Carbon Dioxide Level 39.8 mmol/L Anion Gap 6.3 Blood Urea Nitrogen 24 mg/dL Creatinine 0.54 mg/dL Estimated GFR () 154.6 Est GFR (CKD-EPI)(Non-Afr [place]) 127.7 BUN/Creatinine Ratio 44.0 Glucose Level 131 mg/dL Calcium Level 8.8 mg/dL Total Bilirubin 0.5 mg/dL Aspartate Amino Transf (AST/SGOT) 28 U/L Alanine Aminotransferase (ALT/SGPT) 45 U/L Alkaline Phosphatase 67 U/L Total Protein 7.1 g/dL Albumin 2.4 g/dL Globulin 4.7 Albumin/Globulin Ratio 0.510 Triglycerides Level 314 mg/dL Blood Gas Sample Site ART LINE Blood Gas pH 7.280 Blood Gas PCO2 84.0 mmHg Blood Gas PO2 60.1 mmHg Blood Gas HCO3 38.6 mmol/L Blood Gas Base Excess 8.4 mmol/L Lucas Test N/A Arterial Blood Oxygen Saturation 88.1 % Deoxyhemoglobin 11.8 % Carboxyhemoglobin 0.4 % Methemoglobin 0.3 % Total Hemoglobin 14.0 % Total Oxygen Concentration 17.2 % Blood Gas Temperature 37 Oxygen Delivery Method (LAB) VENT Blood Gas Vent Mode AC/VC Blood Gas Vent Rate 35 FiO2 100 % Blood Gas Tidal Volume 320 ML Blood Gas PEEP 16 CMH2O Total Carbon Dioxide 41.2 mmol/L Bedside Glucose 151 Urine Collection Type UNKNOWN Urine Color YELLOW Urine Appearance CLEAR Urine Bilirubin SMALL Urine Ictotest POSITIVE Urine Ketones 15 mg/dL Urine Specific [place] >=1.030 Urine pH 5.5 Urine Protein NEGATIVE Urine Urobilinogen 2.0 E.U./dL Urine Nitrate NEGATIVE Urine Leukocyte Esterase NEGATIVE Urine Glucose (Auto)(UA) NEGATIVE Urine Blood NEGATIVE Nasal Adenovirus (PCR) NotDetected Nasal Coronavirus Type 229E (PCR) NotDetected Nasal Coronavirus Type HKU1 (PCR) NotDetected Nasal Coronavirus Type NL63 (PCR) NotDetected Nasal Coronavirus Type OC43 (PCR) NotDetected Nasal Enterovirus/Rhinovirus (PCR) NotDetected Nasal Influenza Type A (H1) (PCR) NotDetected Nasal Influenza Type A (H3) (PCR) NotDetected Nasal Swab Influenza Virus B (PCR) NotDetected Nasal Parainfluenza Type 1 (PCR) NotDetected Nasal Parainfluenza Type 2 (PCR) NotDetected Nasal Parainfluenza Type 3 (PCR) NotDetected Nasal Parainfluenza Type 4 (PCR) NotDetected Nasal Resp Syncytial Virus (PCR) NotDetected Nasal Bordetella pertussis DNA (PCR NotDetected Nasal Chlamydophila pneumoniae (PCR NotDetected Nasal Human Metapneumovirus (PCR) NotDetected Nasal Mycoplasma pneumoniae (PCR) NotDetected Nasal SARS-CoV-2 (PCR) DETECTED Influenza Type A (H1N1/09) (PCR) NotDetected Test 05/14/21 14:00 05/14/21 18:09 05/15/21 00:00 05/15/21 05:25 Blood Gas Sample Site ART LINE Blood Gas pH 7.386 Blood Gas PCO2 61.1 mmHg Blood Gas PO2 51.9 mmHg Blood Gas HCO3 35.8 mmol/L Blood Gas Base Excess 8.5 mmol/L Lucas Test N/A Arterial Blood Oxygen Saturation 86.5 % Deoxyhemoglobin 13.4 % Carboxyhemoglobin 0.5 % Methemoglobin 0.0 % Total Hemoglobin 14.1 % Total Oxygen Concentration 17.0 % Blood Gas Temperature 37.0 Oxygen Delivery Method (LAB) VENT Blood Gas Vent Mode AC Blood Gas Vent Rate 35 FiO2 100 % Blood Gas Tidal Volume 320 ML Blood Gas PEEP 16.0 CMH2O Total Carbon Dioxide 37.7 mmol/L Bedside Glucose 134 194 White Blood Count 12.1 10^3/uL Red Blood Count 4.22 10^6/uL Hemoglobin 12.3 g/dL Hematocrit 40.1 % Mean Corpuscular Volume 95.0 fL Mean Corpuscular Hemoglobin 29.1 pg Mean Corpuscular Hemoglobin Concent 30.7 g/dL Red Cell Distribution Width 12.8 % Platelet Count 219 10^3/uL Mean Platelet Volume 10.5 fL Neutrophils (%) (Auto) 79.6 % Lymphocytes (%) (Auto) 13.3 % Monocytes (%) (Auto) 4.4 % Neutrophils # (Auto) 9.6 10^3/uL Lymphocytes # (Auto) 1.61 10^3/uL1 Monocytes # (Auto) 0.5 10^3/uL Absolute Immature Granulocyte (auto 0.09 10^3 u/L Absolute Eosinophils (auto) 0.3 10^3/uL Immature Granulocytes % 0.70 % Eosinophils % 2.6 % Basophils % 0.1 % Basophils # 0.0 10^3/uL Sodium Level 144 mmol/L Potassium Level 3.7 mmol/L Chloride Level 105.0 mmol/L Carbon Dioxide Level 37.2 mmol/L Anion Gap 5.5 Blood Urea Nitrogen 31 mg/dL Creatinine 0.52 mg/dL Estimated GFR () 161.4 Est GFR (CKD-EPI)(Non-Afr [place]) 133.4 BUN/Creatinine Ratio 59.0 Glucose Level 165 mg/dL Calcium Level 8.4 mg/dL Total Bilirubin 0.5 mg/dL Aspartate Amino Transf (AST/SGOT) 28 U/L Alanine Aminotransferase (ALT/SGPT) 39 U/L Alkaline Phosphatase 53 U/L Total Protein 6.5 g/dL Albumin 2.2 g/dL Globulin 4.3 Albumin/Globulin Ratio 0.511 Procalcitonin 0.17 ng/mL Test 05/15/21 05:42 05/15/21 08:18 05/15/21 12:10 05/15/21 17:48 Blood Gas Sample Site ART LINE JUAN Blood Gas pH 7.360 7.320 Blood Gas PCO2 73.1 mmHg 65.0 mmHg Blood Gas PO2 mmHg 59.7 mmHg Blood Gas HCO3 40.4 mmol/L 32.7 mmol/L Blood Gas Base Excess 11.9 mmol/L 4.8 mmol/L Lucas Test N/A POSITIVE Arterial Blood Oxygen Saturation 89.6 % 88.4 % Deoxyhemoglobin 10.3 % 11.5 % Carboxyhemoglobin 1.0 % 0.4 % Methemoglobin 0.3 % 0.2 % Total Hemoglobin 13.1 % 13.1 % Total Oxygen Concentration 16.1 % 16.2 % Oxygen Delivery Method (LAB) VENT FiO2 100 % 100 % Blood Gas PEEP 16.0 CMH2O 16 CMH2O Total Carbon Dioxide 42.6 mmol/L 34.7 mmol/L Blood Gas Vent Mode A/C Blood Gas Vent Rate 35 Blood Gas Tidal Volume 320 ML Bedside Glucose 212 159 Test 05/15/21 23:51 05/16/21 00:00 05/16/21 04:29 05/16/21 04:48 Vancomycin Level Trough 3.7 ug/mL Bedside Glucose 163 Blood Gas Sample Site ART LINE Blood Gas pH 7.325 Blood Gas PCO2 82.9 mmHg Blood Gas PO2 60.7 mmHg Blood Gas HCO3 42.2 mmol/L Blood Gas Base Excess 13.0 mmol/L Lucas Test N/A Arterial Blood Oxygen Saturation 89.7 % Deoxyhemoglobin 10.2 % Carboxyhemoglobin 0.9 % Methemoglobin 0.4 % Total Hemoglobin 11.7 % Total Oxygen Concentration 14.6 % Blood Gas Temperature 37.0 Oxygen Delivery Method (LAB) VENTILATOR Blood Gas Vent Mode AC+ Blood Gas Vent Rate 35 FiO2 100 % Blood Gas Tidal Volume 320 ML Blood Gas PEEP 16.0 CMH2O Total Carbon Dioxide 44.8 mmol/L White Blood Count 10.9 10^3/uL Red Blood Count 3.71 10^6/uL Hemoglobin 11.0 g/dL Hematocrit 35.3 % Mean Corpuscular Volume 95.1 fL Mean Corpuscular Hemoglobin 29.6 pg Mean Corpuscular Hemoglobin Concent 31.2 g/dL Red Cell Distribution Width 12.2 % Platelet Count 173 10^3/uL Mean Platelet Volume 10.8 fL Neutrophils (%) (Auto) 78.7 % Lymphocytes (%) (Auto) 13.2 % Monocytes (%) (Auto) 3.9 % Neutrophils # (Auto) 8.6 10^3/uL Lymphocytes # (Auto) 1.44 10^3/uL1 Monocytes # (Auto) 0.4 10^3/uL Absolute Immature Granulocyte (auto 0.06 10^3 u/L Absolute Eosinophils (auto) 0.5 10^3/uL Immature Granulocytes % 0.60 % Eosinophils % 4.1 % Basophils % 0.1 % Basophils # 0.0 10^3/uL Erythrocyte Sedimentation Rate 70 mm/hr D-Dimer 1.80 mg/L Sodium Level 145 mmol/L Potassium Level 3.2 mmol/L Chloride Level 106.0 mmol/L Carbon Dioxide Level 38.9 mmol/L Anion Gap 3.3 Blood Urea Nitrogen 21 mg/dL Creatinine 0.35 mg/dL Estimated GFR () 254.9 Est GFR (CKD-EPI)(Non-Afr [place]) 210.7 BUN/Creatinine Ratio 60.0 Glucose Level 172 mg/dL Calcium Level 8.1 mg/dL Total Bilirubin 0.3 mg/dL Aspartate Amino Transf (AST/SGOT) 38 U/L Alanine Aminotransferase (ALT/SGPT) 33 U/L Alkaline Phosphatase 41 U/L Lactate Dehydrogenase 260 U/L C-Reactive Protein 3.48 mg/dL Total Protein 5.8 g/dL Albumin 2.0 g/dL Globulin 3.8 Albumin/Globulin Ratio 0.526 HIV (1&2) Antibody Screen NON-REACTIVE Test 05/16/21 17:43 05/17/21 00:47 05/17/21 05:19 05/17/21 05:25 Bedside Glucose 191 170 Blood Gas Sample Site ART LINE Blood Gas pH 7.328 Blood Gas PCO2 75.8 mmHg Blood Gas PO2 77.7 mmHg Blood Gas HCO3 38.9 mmol/L Blood Gas Base Excess 10.4 mmol/L Lucas Test N/A Arterial Blood Oxygen Saturation 94.2 % Deoxyhemoglobin 5.8 % Carboxyhemoglobin 0.3 % Methemoglobin 0.4 % Total Hemoglobin 11.4 % Total Oxygen Concentration 15.1 % Blood Gas Temperature 37.0 Oxygen Delivery Method (LAB) VENTILATOR Blood Gas Vent Mode AC+ Blood Gas Vent Rate 35 FiO2 100 % Blood Gas Tidal Volume 320 ML Blood Gas PEEP 16.0 CMH2O Total Carbon Dioxide 41.2 mmol/L White Blood Count 12.4 10^3/uL Red Blood Count 3.56 10^6/uL Hemoglobin 10.5 g/dL Hematocrit 33.9 % Mean Corpuscular Volume 95.2 fL Mean Corpuscular Hemoglobin 29.5 pg Mean Corpuscular Hemoglobin Concent 31.0 g/dL Red Cell Distribution Width 12.3 % Platelet Count 191 10^3/uL Mean Platelet Volume 10.8 fL Neutrophils (%) (Auto) 74.8 % Lymphocytes (%) (Auto) 16.8 % Monocytes (%) (Auto) 3.8 % Neutrophils # (Auto) 9.3 10^3/uL Lymphocytes # (Auto) 2.08 10^3/uL1 Monocytes # (Auto) 0.5 10^3/uL Absolute Immature Granulocyte (auto 0.09 10^3 u/L Absolute Eosinophils (auto) 0.6 10^3/uL Immature Granulocytes % 0.70 % Eosinophils % 4.4 % Basophils % 0.2 % Basophils # 0.0 10^3/uL Sodium Level 146 mmol/L Potassium Level 2.9 mmol/L Chloride Level 105.0 mmol/L Carbon Dioxide Level 38.7 mmol/L Anion Gap 5.2 Blood Urea Nitrogen 13 mg/dL Creatinine 0.29 mg/dL Estimated GFR () 316.7 Est GFR (CKD-EPI)(Non-Afr [place]) 261.8 BUN/Creatinine Ratio 44.0 Glucose Level 198 mg/dL Calcium Level 8.1 mg/dL Magnesium Level 1.6 mg/dL Total Bilirubin 0.3 mg/dL Aspartate Amino Transf (AST/SGOT) 29 U/L Alanine Aminotransferase (ALT/SGPT) 30 U/L Alkaline Phosphatase 50 U/L Pro-B-Type Natriuretic Peptide 227 pg/mL Total Protein 5.6 g/dL Albumin 1.9 g/dL Globulin 3.7 Albumin/Globulin Ratio 0.513 Procalcitonin 0.13 ng/mL Test 05/17/21 08:45 05/17/21 13:12 05/17/21 13:48 05/17/21 18:04 Vancomycin Level Trough 9.6 ug/mL Bedside Glucose 224 183 Nasal Adenovirus (PCR) NotDetected Nasal Coronavirus Type 229E (PCR) NotDetected Nasal Coronavirus Type HKU1 (PCR) NotDetected Nasal Coronavirus Type NL63 (PCR) NotDetected Nasal Coronavirus Type OC43 (PCR) NotDetected Nasal Enterovirus/Rhinovirus (PCR) NotDetected Nasal Influenza Type A (H1) (PCR) NotDetected Nasal Influenza Type A (H3) (PCR) NotDetected Nasal Swab Influenza Virus B (PCR) NotDetected Nasal Parainfluenza Type 1 (PCR) NotDetected Nasal Parainfluenza Type 2 (PCR) NotDetected Nasal Parainfluenza Type 3 (PCR) NotDetected Nasal Parainfluenza Type 4 (PCR) NotDetected Nasal Resp Syncytial Virus (PCR) NotDetected Nasal Bordetella pertussis DNA (PCR NotDetected Nasal Chlamydophila pneumoniae (PCR NotDetected Nasal Human Metapneumovirus (PCR) NotDetected Nasal Mycoplasma pneumoniae (PCR) NotDetected Nasal SARS-CoV-2 (PCR) DETECTED Influenza Type A (H1N1/09) (PCR) NotDetected Test 05/18/21 04:19 05/18/21 05:20 05/18/21 08:20 05/18/21 18:12 Bedside Glucose 177 220 Blood Gas Sample Site ART LINE Blood Gas pH 7.327 Blood Gas PCO2 65.3 mmHg Blood Gas PO2 56.0 mmHg Blood Gas HCO3 33.4 mmol/L Blood Gas Base Excess 6.0 mmol/L Lucas Test N/A Arterial Blood Oxygen Saturation 88.0 % Deoxyhemoglobin 11.9 % Carboxyhemoglobin 0.5 % Methemoglobin 0.3 % Total Hemoglobin 10.2 % Total Oxygen Concentration 12.6 % Blood Gas Temperature 37.0 Oxygen Delivery Method (LAB) VENTILATOR Blood Gas Vent Mode AC+ Blood Gas Vent Rate 35 FiO2 100 % Blood Gas Tidal Volume 320 ML Blood Gas PEEP 16.0 CMH2O Total Carbon Dioxide 35.4 mmol/L White Blood Count 15.6 10^3/uL Red Blood Count 3.65 10^6/uL Hemoglobin 10.6 g/dL Hematocrit 34.9 % Mean Corpuscular Volume 95.6 fL Mean Corpuscular Hemoglobin 29.0 pg Mean Corpuscular Hemoglobin Concent 30.4 g/dL Red Cell Distribution Width 12.6 % Platelet Count 202 10^3/uL Mean Platelet Volume 10.7 fL Neutrophils (%) (Auto) 78.5 % Lymphocytes (%) (Auto) 14.1 % Monocytes (%) (Auto) 2.3 % Neutrophils # (Auto) 12.2 10^3/uL Lymphocytes # (Auto) 2.19 10^3/uL1 Monocytes # (Auto) 0.4 10^3/uL Absolute Immature Granulocyte (auto 0.34 10^3 u/L Absolute Eosinophils (auto) 0.4 10^3/uL Immature Granulocytes % 2.20 % Eosinophils % 2.8 % Basophils % 0.1 % Basophils # 0.0 10^3/uL Sodium Level 143 mmol/L Potassium Level 3.0 mmol/L Chloride Level 104.0 mmol/L Carbon Dioxide Level 37.8 mmol/L Anion Gap 4.2 Blood Urea Nitrogen 18 mg/dL Creatinine 0.30 mg/dL Estimated GFR () 304.6 Est GFR (CKD-EPI)(Non-Afr [place]) 251.7 BUN/Creatinine Ratio 60.0 Glucose Level 216 mg/dL Calcium Level 8.2 mg/dL Magnesium Level 1.8 mg/dL Total Bilirubin 0.6 mg/dL Aspartate Amino Transf (AST/SGOT) 36 U/L Alanine Aminotransferase (ALT/SGPT) 39 U/L Alkaline Phosphatase 70 U/L Total Protein 6.3 g/dL Albumin 2.0 g/dL Globulin 4.3 Albumin/Globulin Ratio 0.465 Vancomycin Level Trough 14.0 ug/mL Test 05/18/21 22:00 05/19/21 01:17 05/19/21 04:20 05/19/21 14:06 Total Creatine Kinase 181 U/L Creatine Kinase MB 1.4 ng/mL Troponin I 0.11 ng/mL Pro-B-Type Natriuretic Peptide 1249 pg/mL Bedside Glucose 168 262 White Blood Count 8.9 10^3/uL Red Blood Count 2.98 10^6/uL Hemoglobin 8.8 g/dL Hematocrit 28.6 % Mean Corpuscular Volume 96.0 fL Mean Corpuscular Hemoglobin 29.5 pg Mean Corpuscular Hemoglobin Concent 30.8 g/dL Red Cell Distribution Width 13.1 % Platelet Count 143 10^3/uL Mean Platelet Volume 11.4 fL Neutrophils (%) (Auto) 77.4 % Lymphocytes (%) (Auto) 14.3 % Monocytes (%) (Auto) 3.1 % Neutrophils # (Auto) 6.9 10^3/uL Lymphocytes # (Auto) 1.28 10^3/uL1 Monocytes # (Auto) 0.3 10^3/uL Absolute Immature Granulocyte (auto 0.28 10^3 u/L Absolute Eosinophils (auto) 0.2 10^3/uL Immature Granulocytes % 3.10 % Eosinophils % 1.9 % Basophils % 0.2 % Basophils # 0.0 10^3/uL Sodium Level 142 mmol/L Potassium Level 3.8 mmol/L Chloride Level 108.0 mmol/L Carbon Dioxide Level 32.4 mmol/L Anion Gap 5.4 Blood Urea Nitrogen 22 mg/dL Creatinine 0.48 mg/dL Estimated GFR () 177.1 Est GFR (CKD-EPI)(Non-Afr [place]) 146.3 BUN/Creatinine Ratio 45.0 Glucose Level 214 mg/dL Calcium Level 8.1 mg/dL Phosphorus Level 1.0 mg/dL Magnesium Level 2.0 mg/dL Total Bilirubin 0.3 mg/dL Aspartate Amino Transf (AST/SGOT) 38 U/L Alanine Aminotransferase (ALT/SGPT) 57 U/L Alkaline Phosphatase 72 U/L Total Protein 5.5 g/dL Albumin 1.8 g/dL Globulin 3.7 Albumin/Globulin Ratio 0.486 Test 05/19/21 16:20 05/19/21 17:39 05/19/21 23:08 05/20/21 04:29 Vancomycin Level Trough 22.7 ug/mL Bedside Glucose 238 114 White Blood Count 8.3 10^3/uL Red Blood Count 2.80 10^6/uL Hemoglobin 8.2 g/dL Hematocrit 27.4 % Mean Corpuscular Volume 97.9 fL Mean Corpuscular Hemoglobin 29.3 pg Mean Corpuscular Hemoglobin Concent 29.9 g/dL Red Cell Distribution Width 13.9 % Platelet Count 179 10^3/uL Mean Platelet Volume 11.7 fL Neutrophils (%) (Auto) 76.9 % Lymphocytes (%) (Auto) 12.7 % Monocytes (%) (Auto) 4.2 % Neutrophils # (Auto) 6.4 10^3/uL Lymphocytes # (Auto) 1.06 10^3/uL1 Monocytes # (Auto) 0.4 10^3/uL Absolute Immature Granulocyte (auto 0.41 10^3 u/L Absolute Eosinophils (auto) 0.1 10^3/uL Immature Granulocytes % 4.90 % Eosinophils % 1.1 % Basophils % 0.2 % Basophils # 0.0 10^3/uL Sodium Level 144 mmol/L Potassium Level 4.1 mmol/L Chloride Level 110.0 mmol/L Carbon Dioxide Level 32.1 mmol/L Anion Gap 6.0 Blood Urea Nitrogen 29 mg/dL Creatinine 0.56 mg/dL Estimated GFR () 148.2 Est GFR (CKD-EPI)(Non-Afr [place]) 122.5 BUN/Creatinine Ratio 51.0 Glucose Level 163 mg/dL Calcium Level 8.1 mg/dL Phosphorus Level 3.0 mg/dL Magnesium Level 1.9 mg/dL Total Bilirubin 0.4 mg/dL Aspartate Amino Transf (AST/SGOT) 28 U/L Alanine Aminotransferase (ALT/SGPT) 44 U/L Alkaline Phosphatase 76 U/L Total Protein 5.4 g/dL Albumin 1.7 g/dL Globulin 3.7 Albumin/Globulin Ratio 0.459 Test 05/20/21 04:59 05/20/21 12:14 05/20/21 12:40 05/20/21 17:08 Blood Gas Sample Site ART LINE KENVIR Blood Gas pH 7.221 7.342 Blood Gas PCO2 75.6 mmHg 58.2 mmHg Blood Gas PO2 83.2 mmHg 43.1 mmHg Blood Gas HCO3 30.3 mmol/L 30.8 mmol/L Blood Gas Base Excess 1.5 mmol/L 4.1 mmol/L Lucas Test N/A N/A Arterial Blood Oxygen Saturation 94.6 % 80.2 % Deoxyhemoglobin 5.4 % 19.6 % Carboxyhemoglobin 0.3 % 0.8 % Methemoglobin 0.2 % 0.4 % Total Hemoglobin 9.4 % 10.0 % Total Oxygen Concentration 12.6 % 11.1 % Blood Gas Temperature 37.0 37 Oxygen Delivery Method (LAB) VENTILATOR VENT Blood Gas Vent Mode AC+ AC Blood Gas Vent Rate 35 35 FiO2 100 % 80 % Blood Gas Tidal Volume 320 ML 350 ML Blood Gas PEEP 16.0 CMH2O 16 CMH2O Total Carbon Dioxide 32.6 mmol/L 32.6 mmol/L Bedside Glucose 157 248 Test 05/20/21 23:40 05/21/21 04:42 05/21/21 05:10 05/21/21 08:41 Bedside Glucose 187 White Blood Count 12.0 10^3/uL Red Blood Count 2.95 10^6/uL Hemoglobin 8.9 g/dL Hematocrit 28.6 % Mean Corpuscular Volume 96.9 fL Mean Corpuscular Hemoglobin 30.2 pg Mean Corpuscular Hemoglobin Concent 31.1 g/dL Red Cell Distribution Width 14.2 % Platelet Count 241 10^3/uL Mean Platelet Volume 11.2 fL Sodium Level 144 mmol/L Potassium Level 3.8 mmol/L Chloride Level 109.0 mmol/L Carbon Dioxide Level 32.2 mmol/L Anion Gap 6.6 Blood Urea Nitrogen 32 mg/dL Creatinine 0.56 mg/dL Estimated GFR () 148.2 Est GFR (CKD-EPI)(Non-Afr [place]) 122.5 BUN/Creatinine Ratio 57.0 Glucose Level 193 mg/dL Calcium Level 8.4 mg/dL Total Bilirubin 0.3 mg/dL Aspartate Amino Transf (AST/SGOT) 27 U/L Alanine Aminotransferase (ALT/SGPT) 43 U/L Alkaline Phosphatase 102 U/L Total Protein 5.9 g/dL Albumin 1.8 g/dL Globulin 4.1 Albumin/Globulin Ratio 0.439 Triglycerides Level 164 mg/dL Blood Gas Sample Site ART LINE Blood Gas pH 7.255 Blood Gas PCO2 72.2 mmHg Blood Gas PO2 61.5 mmHg Blood Gas HCO3 31.3 mmol/L Blood Gas Base Excess 3.0 mmol/L Lucas Test POSITIVE Arterial Blood Oxygen Saturation 88.4 % Deoxyhemoglobin 11.4 % Carboxyhemoglobin 0.8 % Methemoglobin 0.5 % Total Hemoglobin 9.5 % Total Oxygen Concentration 11.7 % Blood Gas Temperature 37 Oxygen Delivery Method (LAB) VENT Blood Gas Vent Mode AC Blood Gas Vent Rate 35 FiO2 90 % Blood Gas Tidal Volume 320 ML Blood Gas PEEP 16 CMH2O Total Carbon Dioxide 33.5 mmol/L Vancomycin Level Trough 19.1 ug/mL Test 05/21/21 10:48 05/21/21 16:14 05/22/21 04:37 05/22/21 05:30 Bedside Glucose 157 181 White Blood Count 14.0 10^3/uL Red Blood Count 2.93 10^6/uL Hemoglobin 8.7 g/dL Hematocrit 28.6 % Mean Corpuscular Volume 97.6 fL Mean Corpuscular Hemoglobin 29.7 pg Mean Corpuscular Hemoglobin Concent 30.4 g/dL Red Cell Distribution Width 15.5 % Platelet Count 280 10^3/uL Mean Platelet Volume 10.4 fL Neutrophils (%) (Auto) 83.8 % Lymphocytes (%) (Auto) 10.8 % Monocytes (%) (Auto) 2.8 % Neutrophils # (Auto) 11.8 10^3/uL Lymphocytes # (Auto) 1.52 10^3/uL1 Monocytes # (Auto) 0.4 10^3/uL Absolute Immature Granulocyte (auto 0.94 10^3 u/L Absolute Eosinophils (auto) 0.4 10^3/uL Immature Granulocytes % 6.70 % Eosinophils % 2.5 % Basophils % 0.1 % Basophils # 0.0 10^3/uL Sodium Level 145 mmol/L Potassium Level 3.6 mmol/L Chloride Level 107.0 mmol/L Carbon Dioxide Level 31.1 mmol/L Anion Gap 10.5 Blood Urea Nitrogen 31 mg/dL Creatinine 0.60 mg/dL Estimated GFR () 136.9 Est GFR (CKD-EPI)(Non-Afr [place]) 113.1 BUN/Creatinine Ratio 51.0 Glucose Level 197 mg/dL Calcium Level 8.4 mg/dL Total Bilirubin 0.7 mg/dL Aspartate Amino Transf (AST/SGOT) 47 U/L Alanine Aminotransferase (ALT/SGPT) 73 U/L Alkaline Phosphatase 137 U/L Total Protein 6.4 g/dL Albumin 1.7 g/dL Globulin 4.7 Albumin/Globulin Ratio 0.361 Blood Gas Sample Site ART LINE Blood Gas pH 7.256 Blood Gas PCO2 72.3 mmHg Blood Gas PO2 62.0 mmHg Blood Gas HCO3 31.4 mmol/L Blood Gas Base Excess 3.2 mmol/L Lucas Test N/A Arterial Blood Oxygen Saturation 89.0 % Deoxyhemoglobin 10.8 % Carboxyhemoglobin 1.2 % Methemoglobin 0.6 % Total Hemoglobin 9.2 % Total Oxygen Concentration 11.4 % FiO2 90 % Blood Gas PEEP 16.0 CMH2O Total Carbon Dioxide 33.6 mmol/L Test 05/22/21 11:02 05/22/21 11:55 05/22/21 16:24 05/22/21 23:11 Bedside Glucose 169 234 273 Blood Gas Sample Site ART LINE Blood Gas pH 7.270 Blood Gas PCO2 72.2 mmHg Blood Gas PO2 50.3 mmHg Blood Gas HCO3 32.4 mmol/L Blood Gas Base Excess 4.1 mmol/L Lucas Test N/A Arterial Blood Oxygen Saturation 82.4 % Deoxyhemoglobin 17.5 % Carboxyhemoglobin 0.5 % Methemoglobin 0.2 % Total Hemoglobin 10.0 % Total Oxygen Concentration 11.5 % Oxygen Delivery Method (LAB) MV Blood Gas Vent Mode ACPC 26 Blood Gas Vent Rate 35 FiO2 100 % Blood Gas PEEP 16 CMH2O Total Carbon Dioxide 34.6 mmol/L Test 05/23/21 04:21 05/23/21 04:23 05/23/21 05:16 05/23/21 08:58 Blood Gas Sample Site ART LINE Blood Gas pH 7.265 Blood Gas PCO2 69.0 mmHg Blood Gas PO2 69.4 mmHg Blood Gas HCO3 30.6 mmol/L Blood Gas Base Excess 2.7 mmol/L Lucas Test N/A Arterial Blood Oxygen Saturation 91.6 % Deoxyhemoglobin 8.3 % Carboxyhemoglobin 1.4 % Methemoglobin 0.3 % Total Hemoglobin 9.0 % Total Oxygen Concentration 11.5 % Blood Gas Temperature 37.0 Oxygen Delivery Method (LAB) VENT Blood Gas Vent Mode PRVC Blood Gas Vent Rate 35 FiO2 100 % Blood Gas PEEP 18.0 CMH2O Total Carbon Dioxide 32.7 mmol/L White Blood Count 13.6 10^3/uL Red Blood Count 2.81 10^6/uL Hemoglobin 8.4 g/dL Hematocrit 27.2 % Mean Corpuscular Volume 96.8 fL Mean Corpuscular Hemoglobin 29.9 pg Mean Corpuscular Hemoglobin Concent 30.9 g/dL Red Cell Distribution Width 14.9 % Platelet Count 301 10^3/uL Mean Platelet Volume 10.4 fL Neutrophils (%) (Auto) 90.8 % Lymphocytes (%) (Auto) 7.3 % Monocytes (%) (Auto) 1.7 % Neutrophils # (Auto) 12.4 10^3/uL Lymphocytes # (Auto) 0.99 10^3/uL1 Monocytes # (Auto) 0.2 10^3/uL Absolute Immature Granulocyte (auto 0.71 10^3 u/L Absolute Eosinophils (auto) 0.0 10^3/uL Immature Granulocytes % 5.20 % Eosinophils % 0.1 % Basophils % 0.1 % Basophils # 0.0 10^3/uL Sodium Level 145 mmol/L Potassium Level 3.4 mmol/L Chloride Level 107.0 mmol/L Carbon Dioxide Level 31.4 mmol/L Anion Gap 10.0 Blood Urea Nitrogen 29 mg/dL Creatinine 0.59 mg/dL Estimated GFR () 139.6 Est GFR (CKD-EPI)(Non-Afr [place]) 115.3 BUN/Creatinine Ratio 49.0 Glucose Level 297 mg/dL Calcium Level 8.7 mg/dL Total Bilirubin 0.5 mg/dL Aspartate Amino Transf (AST/SGOT) 30 U/L Alanine Aminotransferase (ALT/SGPT) 45 U/L Alkaline Phosphatase 112 U/L Total Protein 6.3 g/dL Albumin 1.8 g/dL Globulin 4.5 Albumin/Globulin Ratio 0.400 Differential Total Cells Counted 100 #CELLS Segmented Neutrophils 90 % Band Neutrophils 1 % Lymphocytes 8 % Metamyelocytes 1 % Differential Comment NORMAL Platelet Estimate ADEQUATE Platelet Morphology NORMAL Triglycerides Level 159 mg/dL Vancomycin Level Trough 16.2 ug/mL Test 05/23/21 11:09 05/23/21 15:35 05/23/21 16:08 05/23/21 21:18 Bedside Glucose 267 291 314 Blood Gas Sample Site KENVIR Blood Gas pH 7.044 Blood Gas PCO2 135.7 mmHg Blood Gas PO2 83.3 mmHg Blood Gas HCO3 36.2 mmol/L Blood Gas Base Excess 3.4 mmol/L Lucas Test N/A Arterial Blood Oxygen Saturation 92.2 % Deoxyhemoglobin 7.7 % Carboxyhemoglobin 1.0 % Methemoglobin 0.6 % Total Hemoglobin 9.4 % Total Oxygen Concentration 12.1 % Blood Gas Temperature 37.0 Oxygen Delivery Method (LAB) VENT Blood Gas Vent Mode AC/PC Pi26/Ti 0.80 Blood Gas Vent Rate 35 FiO2 100 % Blood Gas PEEP 18.0 CMH2O Total Carbon Dioxide 40.4 mmol/L Test 05/24/21 05:00 05/24/21 06:22 05/24/21 12:54 05/24/21 20:18 White Blood Count 18.2 10^3/uL Red Blood Count 2.75 10^6/uL Hemoglobin 8.2 g/dL Hematocrit 27.4 % Mean Corpuscular Volume 99.6 fL Mean Corpuscular Hemoglobin 29.8 pg Mean Corpuscular Hemoglobin Concent 29.9 g/dL Red Cell Distribution Width 15.4 % Platelet Count 418 10^3/uL Mean Platelet Volume 10.3 fL Neutrophils (%) (Auto) 89.1 % Lymphocytes (%) (Auto) 6.9 % Monocytes (%) (Auto) 3.9 % Neutrophils # (Auto) 16.2 10^3/uL Lymphocytes # (Auto) 1.26 10^3/uL1 Monocytes # (Auto) 0.7 10^3/uL Absolute Immature Granulocyte (auto 1.17 10^3 u/L Absolute Eosinophils (auto) 0.0 10^3/uL Immature Granulocytes % 6.40 % Eosinophils % 0.0 % Basophils % 0.1 % Basophils # 0.0 10^3/uL Blood Gas Sample Site ART LINE Blood Gas pH 7.232 Blood Gas PCO2 86.5 mmHg Blood Gas PO2 113.7 mmHg Blood Gas HCO3 35.6 mmol/L Blood Gas Base Excess 6.5 mmol/L Lucas Test N/A Arterial Blood Oxygen Saturation 97.5 % Deoxyhemoglobin 2.5 % Carboxyhemoglobin 0.9 % Methemoglobin 0.6 % Total Hemoglobin 8.7 % Total Oxygen Concentration 12.0 % Blood Gas Temperature 37.0 Oxygen Delivery Method (LAB) VENT Blood Gas Vent Mode PCV Blood Gas Vent Rate 35 FiO2 100 % Blood Gas PEEP 18.0 CMH2O Sodium Level 148 mmol/L Potassium Level 3.3 mmol/L Chloride Level 110.0 mmol/L Carbon Dioxide Level 36.1 mmol/L Total Carbon Dioxide 38.2 mmol/L Anion Gap 5.2 Blood Urea Nitrogen 36 mg/dL Creatinine 0.67 mg/dL Estimated GFR () 120.5 Est GFR (CKD-EPI)(Non-Afr [place]) 99.6 BUN/Creatinine Ratio 53.0 Glucose Level 289 mg/dL Calcium Level 8.7 mg/dL Total Bilirubin 0.5 mg/dL Aspartate Amino Transf (AST/SGOT) 27 U/L Alanine Aminotransferase (ALT/SGPT) 54 U/L Alkaline Phosphatase 116 U/L Total Protein 6.0 g/dL Albumin 1.7 g/dL Globulin 4.3 Albumin/Globulin Ratio 0.395 Segmented Neutrophils 87 % Lymphocytes 9 % Monocytes 4 % Platelet Estimate SLIGHTLY INCREASED Platelet Morphology NORMAL Bedside Glucose 295 276 Test 05/24/21 21:10 05/25/21 02:29 05/25/21 05:00 05/25/21 05:05 Vancomycin Level Trough 21.8 ug/mL Bedside Glucose 289 Blood Gas Sample Site ART LINE Blood Gas pH 7.132 Blood Gas PCO2 125.9 mmHg Blood Gas PO2 57.3 mmHg Blood Gas HCO3 41.1 mmol/L Blood Gas Base Excess 9.5 mmol/L Lucas Test N/A Arterial Blood Oxygen Saturation 84.3 % Deoxyhemoglobin 15.4 % Carboxyhemoglobin 1.5 % Methemoglobin 0.7 % Total Hemoglobin 9.0 % Total Oxygen Concentration 10.5 % Blood Gas Temperature 37.0 Oxygen Delivery Method (LAB) VENT Blood Gas Vent Mode PCV Blood Gas Vent Rate 35 FiO2 90 % Blood Gas PEEP 18.0 CMH2O Total Carbon Dioxide 45.0 mmol/L White Blood Count 21.5 10^3/uL Red Blood Count 2.77 10^6/uL Hemoglobin 8.3 g/dL Hematocrit 28.1 % Mean Corpuscular Volume 101.4 fL Mean Corpuscular Hemoglobin 30.0 pg Mean Corpuscular Hemoglobin Concent 29.5 g/dL Red Cell Distribution Width 16.0 % Platelet Count 414 10^3/uL Mean Platelet Volume 10.3 fL Neutrophils (%) (Auto) 86.6 % Lymphocytes (%) (Auto) 8.7 % Monocytes (%) (Auto) 4.7 % Neutrophils # (Auto) 18.6 10^3/uL Lymphocytes # (Auto) 1.88 10^3/uL1 Monocytes # (Auto) 1.0 10^3/uL Absolute Immature Granulocyte (auto 1.29 10^3 u/L Absolute Eosinophils (auto) 0.0 10^3/uL Immature Granulocytes % 6.00 % Eosinophils % 0.0 % Basophils % 0.0 % Basophils # 0.0 10^3/uL Sodium Level 148 mmol/L Potassium Level 3.3 mmol/L Chloride Level 109.0 mmol/L Carbon Dioxide Level 38.6 mmol/L Anion Gap 3.7 Blood Urea Nitrogen 40 mg/dL Creatinine 0.73 mg/dL Estimated GFR () 109.2 Est GFR (CKD-EPI)(Non-Afr [place]) 90.2 BUN/Creatinine Ratio 54.0 Glucose Level 308 mg/dL Calcium Level 8.4 mg/dL Magnesium Level 2.0 mg/dL Total Bilirubin 0.5 mg/dL Aspartate Amino Transf (AST/SGOT) 40 U/L Alanine Aminotransferase (ALT/SGPT) 107 U/L Alkaline Phosphatase 140 U/L Total Protein 5.9 g/dL Albumin 1.9 g/dL Globulin 4.0 Albumin/Globulin Ratio 0.475 Test 05/25/21 05:52 05/25/21 07:00 Segmented Neutrophils 95 % Lymphocytes 3 % Monocytes 2 % Platelet Estimate SLIGHTLY INCREASED Platelet Morphology NORMAL Blood Gas Sample Site ART LINE Blood Gas pH 7.224 Blood Gas PCO2 95.1 mmHg Blood Gas PO2 45.6 mmHg Blood Gas HCO3 38.4 mmol/L Blood Gas Base Excess 8.9 mmol/L Lucas Test N/A Arterial Blood Oxygen Saturation 80.1 % Deoxyhemoglobin 19.5 % Carboxyhemoglobin 1.6 % Methemoglobin 0.5 % Total Hemoglobin 8.5 % Total Oxygen Concentration 9.4 % Blood Gas Temperature 37.0 Oxygen Delivery Method (LAB) VENT Blood Gas Vent Mode AC/VC Blood Gas Vent Rate 30 FiO2 90 % Blood Gas Tidal Volume 380 ML Blood Gas PEEP 16.0 CMH2O Total Carbon Dioxide 41.3 mmol/L Current Medications Medications (Trade) Dose Ordered Sig/Davon Route PRN Reason Start Time Stop Time Status Last Admin Dose Admin Remdesivir 200 mg/ Sodium Chloride 140 ml @ 120.69 mls/ hr OT STAT IV 04/28/21 19:53 04/29/21 08:10 DC 04/28/21 19:53 Remdesivir 100 mg/ Sodium Chloride 120 ml @ 111.111 mls/hr Q24HRS IV 04/29/21 20:00 05/02/21 21:05 DC 05/02/21 20:45 Famotidine (Pepcid) 20 mg BID PO 04/28/21 21:00 05/07/21 09:31 DC 05/06/21 08:14 Sucralfate (Carafate) 1 gm ACHS PO 04/28/21 21:00 05/15/21 07:29 DC 05/12/21 21:00 Enoxaparin Sodium (Lovenox) 40 mg Q24HRS SQ 04/28/21 20:00 05/06/21 08:06 DC 05/05/21 21:00 Sucralfate (Carafate) 1 gm STK-MED ONCE PO 04/28/21 20:56 04/28/21 20:56 DC Lorazepam (Ativan) 1 mg Q4HR PRN IV ANXIETY 04/29/21 00:00 05/12/21 09:13 DC 05/06/21 18:45 Lorazepam (Ativan) 0.5 mg Q4HR PRN IV ANXIETY 04/29/21 00:00 05/06/21 09:00 DC Fentanyl Citrate (Sublimaze) 50 mcg STK-MED ONCE .ROUTE 04/29/21 11:37 04/29/21 11:38 DC Fentanyl Citrate (Sublimaze) 12.5 mcg OT ONCE IV 04/29/21 15:00 04/29/21 15:06 DC 04/29/21 13:35 Acetaminophen (Tylenol) 650 mg Q6HR PRN PO PAIN 1 - 3 04/30/21 18:00 05/02/21 18:00 DC 05/01/21 06:28 Dexmedetomidine HCl 200 mcg/ Sodium Chloride 50 ml @ 0 mls/hr IV 05/01/21 10:30 05/01/21 11:28 DC Sodium Chloride 250 ml @ ud STK-MED ONCE .ROUTE 05/01/21 20:40 05/01/21 20:40 DC Acetaminophen (Tylenol) 650 mg Q6HR PRN PO PAIN 1 - 3 05/02/21 20:30 05/08/21 18:01 DC 05/04/21 21:15 Bisacodyl (Dulcolax Ec Tablet) 5 mg STAT STAT PO 05/03/21 13:45 05/03/21 19:05 DC 05/03/21 14:36 Docusate Sodium (Colace) 100 mg BID PO 05/05/21 09:00 05/07/21 09:30 DC 05/06/21 08:14 Lorazepam (Ativan) 2 mg STK-MED ONCE .ROUTE 05/05/21 02:31 05/05/21 02:31 DC Lorazepam (Ativan) 2 mg STK-MED ONCE .ROUTE 05/05/21 03:46 05/05/21 03:47 DC Furosemide (Lasix) 20 mg OT ONCE IV 05/05/21 11:00 05/05/21 11:01 DC 05/05/21 11:20 Lorazepam (Ativan) 2 mg STK-MED ONCE .ROUTE 05/05/21 20:56 05/05/21 20:56 DC Enoxaparin Sodium (Lovenox) 100 mg Q12H SQ 05/06/21 08:30 06/05/21 08:29 05/25/21 08:05 Furosemide (Lasix) 20 mg STAT STAT IV 05/06/21 08:48 05/06/21 09:00 DC 05/06/21 08:48 Insulin Human Regular (Humulin R) 1 unit STK-MED ONCE .ROUTE 05/06/21 19:13 05/06/21 19:14 DC Propofol (Diprivan) 1,000 mg PRN PRN IV SEDATION 05/06/21 20:30 05/08/21 11:39 DC 05/08/21 04:00 Propofol 100 ml @ ud STK-MED ONCE IV 05/06/21 20:19 05/06/21 20:19 DC Vecuronium [place] (Norcuron) 10 mg STK-MED ONCE .ROUTE 05/06/21 22:24 05/06/21 22:24 DC Vecuronium [place] (Norcuron) 10 mg Q6HR PRN IV SHORTNESS OF BREATH 05/06/21 23:00 05/07/21 00:34 DC Vecuronium [place] (Norcuron) 10 mg Q4 PRN IV SHORTNESS OF BREATH 05/07/21 00:30 05/12/21 00:00 DC 05/11/21 20:00 Vecuronium [place] (Norcuron) 10 mg STK-MED ONCE .ROUTE 05/07/21 00:20 05/07/21 00:34 DC Propofol 100 ml @ ud STK-MED ONCE IV 05/07/21 01:53 05/07/21 01:53 DC Norepinephrine Bitartrate 8 mg/ Sodium Chloride 250 ml @ 0 mls/hr DAILY IV 05/07/21 09:00 05/10/21 16:46 DC 05/09/21 09:00 Fentanyl Citrate (Sublimaze) 100 mcg Q1HR IV 05/07/21 04:00 05/07/21 09:58 DC Piperacillin Sod/ Tazobactam Sod 4.5 gm/Sodium Chloride 100 ml @ 100 mls/hr Q6H IV 05/07/21 04:00 05/12/21 09:15 DC 05/11/21 22:00 Norepinephrine Bitartrate (Levophed) 4 mg STK-MED ONCE .ROUTE 05/07/21 04:38 05/07/21 04:38 DC Sodium Chloride 250 ml @ ud STK-MED ONCE .ROUTE 05/07/21 04:38 05/07/21 04:38 DC Fentanyl Citrate (Sublimaze) 100 mcg Q1HR PRN IV PAIN 7 - 10 05/07/21 06:30 05/12/21 09:13 DC 05/07/21 06:41 Fentanyl Citrate 2000 mcg/Sodium Chloride 200 ml @ 0 mls/hr IV 05/07/21 10:00 05/07/21 17:01 DC 05/07/21 10:30 Famotidine (Pepcid) 20 mg BID IV 05/07/21 09:30 06/06/21 09:29 05/25/21 08:06 Docusate Sodium (Colace) 100 mg BID NG 05/07/21 09:30 06/06/21 09:29 05/24/21 21:49 Propofol (Diprivan) 200 mg STK-MED ONCE IV 05/07/21 08:00 05/07/21 11:57 DC Succinylcholine Chloride (Quelicin) 8 mg STK-MED ONCE IV 05/07/21 08:00 05/07/21 11:57 DC Vecuronium [place] (Norcuron) 10 mg STK-MED ONCE IV 05/07/21 08:00 05/07/21 11:57 DC Propofol 100 ml @ ud STK-MED ONCE IV 05/07/21 14:49 05/07/21 14:50 DC Fentanyl Citrate 5000 mcg/Sodium Chloride 500 ml @ 0 mls/hr IV 05/07/21 18:00 06/06/21 17:59 05/24/21 19:33 Propofol 100 ml @ ud STK-MED ONCE IV 05/07/21 19:08 05/07/21 19:08 DC Propofol 100 ml @ ud STK-MED ONCE IV 05/07/21 23:47 05/07/21 23:47 DC Propofol 100 ml @ ud STK-MED ONCE IV 05/08/21 03:45 05/08/21 03:46 DC Propofol 100 ml @ ud STK-MED ONCE IV 05/08/21 07:33 05/08/21 07:34 DC Propofol 100 ml @ ud STK-MED ONCE IV 05/08/21 11:27 05/08/21 11:27 DC Propofol 100 ml @ 27.6 mls/hr PRN PRN IV SEDATION 05/08/21 12:00 05/18/21 13:19 DC 05/14/21 03:30 Acetaminophen (Tylenol) 650 mg Q6HR PRN RC FEVER 05/08/21 22:00 06/07/21 21:59 05/15/21 23:52 Midazolam HCl 50 mg/Sodium Chloride 50 ml @ 2 mls/hr ONCE IV 05/09/21 14:30 05/10/21 09:50 DC 05/09/21 14:30 Hydromorphone HCl (Dilaudid) 2 mg STK-MED ONCE .ROUTE 05/09/21 20:10 05/09/21 20:10 DC Hydromorphone HCl (Dilaudid) 0.5 mg Q4H PRN IV PAIN 7 - 10 05/09/21 20:00 06/08/21 19:59 05/18/21 13:28 Sodium Chloride 100 ml @ ud STK-MED ONCE IV 05/09/21 21:13 05/09/21 21:13 DC Midazolam HCl 100 mg/Sodium Chloride 100 ml @ 0 mls/hr ONCE IV 05/10/21 10:00 05/10/21 10:01 DC 05/10/21 10:55 Furosemide (Lasix) 20 mg BID IV 05/10/21 10:30 05/10/21 12:38 DC 05/10/21 10:55 Furosemide (Lasix) 20 mg STK-MED ONCE .ROUTE 05/10/21 10:48 05/10/21 10:49 DC Vecuronium [place] (Norcuron) 10 mg Q2H PRN IV ventilator dyssynchrony 05/10/21 11:30 06/09/21 11:29 05/25/21 08:06 Furosemide (Lasix) 20 mg BID IV 05/10/21 12:38 05/18/21 10:27 DC 05/17/21 20:34 Norepinephrine Bitartrate 8 mg/ Sodium Chloride 250 ml @ 0 mls/hr DAILY IV 05/11/21 09:00 05/11/21 08:54 DC Midazolam HCl 100 mg/Sodium Chloride 100 ml @ 0 mls/hr IV 05/10/21 17:00 05/11/21 08:57 DC 05/11/21 01:39 Albuterol Sulfate (Ventolin Hfa) 200 inh STK-MED ONCE IH 05/10/21 22:44 05/10/21 22:45 DC Albuterol Sulfate (Ventolin Hfa) 2 inh OT ONCE IH 05/10/21 23:00 05/10/21 23:01 DC 05/10/21 23:15 Norepinephrine Bitartrate 8 mg/ Sodium Chloride 258 ml @ 0 mls/hr IV 05/11/21 08:00 06/10/21 07:59 05/23/21 17:37 Midazolam HCl 100 mg/Sodium Chloride 100 ml @ 0 mls/hr TITRATE IV 05/11/21 09:00 05/16/21 16:09 DC 05/16/21 12:21 Sodium Chloride 1,000 ml @ ud STK-MED ONCE .ROUTE 05/12/21 19:14 05/12/21 19:14 DC Albuterol Sulfate (Ventolin) 1.25 mg RTQ6 IH 05/14/21 03:00 05/14/21 00:49 DC Albuterol Sulfate (Ventolin) 1.25 mg RTQ6 PRN IH WHEEZING 05/14/21 03:00 06/13/21 02:59 05/23/21 14:45 Vancomycin HCl 1.5 gm/Sodium Chloride 300 ml @ 175 mls/hr Q12H IV 05/14/21 12:00 05/16/21 09:01 DC 05/16/21 00:00 Cefepime HCl 2 gm/ Sodium Chloride 100 ml @ 100 mls/hr BID IV 05/14/21 10:30 05/23/21 19:49 DC 05/23/21 08:49 Acetaminophen (Ofirmev) 1,000 mg Q8H IV 05/14/21 14:30 05/14/21 16:57 DC Acetaminophen (Ofirmev) 1,000 mg Q8H PRN IV FEVER 05/14/21 17:00 06/13/21 14:29 05/25/21 02:45 Fat Emulsion Intravenous 250 ml @ 15 mls/hr Q2D IV 05/14/21 17:30 05/18/21 21:26 DC 05/16/21 16:50 Ketorolac Tromethamine (Toradol) 30 mg OT PRN IV PAIN 4 - 6 05/14/21 21:30 05/17/21 15:08 DC 05/14/21 21:41 Sterile Water (Water) 1,000 ml STK-MED ONCE .ROUTE 05/14/21 22:50 05/14/21 22:50 DC Sodium Chloride 100 ml @ ud STK-MED ONCE IV 05/15/21 04:22 05/15/21 04:22 DC Vancomycin HCl 1.5 gm/Sodium Chloride 300 ml @ 175 mls/hr Q8H IV 05/16/21 17:00 05/19/21 17:07 DC 05/19/21 09:00 Vancomycin HCl 2 gm/Sodium Chloride 400 ml @ 160 mls/hr OT IV 05/16/21 09:30 05/17/21 15:08 DC 05/16/21 10:24 Potassium Chloride 50 ml @ 50 mls/hr Q2 IV 05/16/21 16:00 05/16/21 20:59 DC 05/16/21 20:00 Midazolam HCl 200 mg/Sodium Chloride 200 ml @ 0 mls/hr TITRATE IV 05/16/21 16:30 06/15/21 16:29 05/24/21 08:59 Sodium Chloride 500 ml @ ud STK-MED ONCE IV 05/16/21 16:46 05/16/21 16:46 DC Vancomycin HCl 1 ml @ ud STK-MED ONCE .ROUTE 05/17/21 01:55 05/17/21 01:55 DC Sodium Chloride 250 ml @ ud STK-MED ONCE .ROUTE 05/17/21 01:55 05/17/21 01:56 DC Magnesium Sulfate 50 ml @ 50 mls/hr OT ONCE IV 05/17/21 11:30 05/17/21 12:29 DC 05/17/21 11:30 Potassium Chloride 100 ml @ 50 mls/hr OT IV 05/17/21 11:30 05/17/21 20:22 DC 05/17/21 13:04 Insulin Glargine (Lantus) 1 unit STK-MED ONCE SQ 05/17/21 13:00 05/17/21 13:01 DC Potassium Chloride 200 ml @ 50 mls/hr OT IV 05/17/21 19:30 05/18/21 10:43 DC 05/17/21 23:20 Potassium Chloride (Potassium Chloride) 40 meq STAT STAT NG 05/18/21 10:23 05/18/21 10:42 DC 05/18/21 10:23 Magnesium Sulfate 50 ml @ 50 mls/hr OT ONCE IV 05/18/21 10:30 05/18/21 11:29 DC 05/18/21 12:20 Potassium Chloride 100 ml @ 50 mls/hr OT ONCE IV 05/18/21 10:30 05/18/21 12:29 DC 05/18/21 12:19 Furosemide (Lasix) 20 mg DAILY IV 05/19/21 09:00 05/24/21 08:41 DC 05/23/21 08:48 Potassium Chloride (Potassium Chloride) 40 meq STK-MED ONCE .ROUTE 05/18/21 12:17 05/18/21 12:17 DC Propofol (Diprivan) Diprivan IV infusion tritra... TITRATE PRN IV SEDATION 05/18/21 13:30 06/17/21 13:29 05/18/21 13:29 Potassium Chloride 200 ml @ 50 mls/hr OT ONCE IV 05/18/21 14:00 05/18/21 14:21 DC Bisacodyl (Bisac-Evac) 10 mg STAT STAT RC 05/18/21 19:46 05/18/21 20:49 DC 05/18/21 19:46 Fat Emulsion Intravenous 250 ml @ 15 mls/hr Q2D IV 05/19/21 08:00 05/19/21 08:46 DC Insulin Human Regular (Humulin R) 1 unit STK-MED ONCE .ROUTE 05/19/21 01:58 05/19/21 01:58 DC Fat Emulsion Intravenous 250 ml @ 15 mls/hr Q2D IV 05/20/21 17:00 06/19/21 16:59 05/24/21 18:06 Potassium Phosphate 30 mmol/ Sodium Chloride 110 ml @ 25 mls/hr OT IV 05/19/21 13:30 05/19/21 17:53 DC Vancomycin HCl 1.5 gm/Sodium Chloride 300 ml @ 175 mls/hr Q12HR IV 05/19/21 21:00 06/18/21 20:59 05/24/21 08:58 Sodium Chloride 500 ml @ ud STK-MED ONCE IV 05/20/21 21:16 05/20/21 21:16 DC Sodium Chloride 250 ml @ ud STK-MED ONCE .ROUTE 05/21/21 09:37 05/21/21 09:38 DC Norepinephrine Bitartrate (Levophed) 4 mg STK-MED ONCE .ROUTE 05/21/21 09:38 05/21/21 09:38 DC Sodium Chloride 250 ml @ ud STK-MED ONCE .ROUTE 05/21/21 21:27 05/21/21 21:27 DC Vancomycin HCl 1 ml @ ud STK-MED ONCE .ROUTE 05/21/21 21:27 05/21/21 21:27 DC Methylprednisolone Sodium Succinate (Solu-Medrol) 40 mg Q8HR IV 05/22/21 10:30 06/21/21 10:29 05/25/21 06:15 Potassium Chloride 100 ml @ 50 mls/hr STAT STAT IV 05/23/21 08:11 05/23/21 10:10 DC 05/23/21 08:11 Sodium Chloride 500 ml @ ud STK-MED ONCE IV 05/23/21 08:43 05/23/21 08:43 DC Bisacodyl (Bisac-Evac) 10 mg DAILY PRN RC CONSTIPATION 05/23/21 12:00 06/22/21 11:59 05/23/21 15:30 Insulin Human Regular (Humulin R) ACHS SQ 05/23/21 17:30 06/22/21 17:29 05/25/21 07:50 Insulin Human Regular (Humulin R) 1 unit STK-MED ONCE .ROUTE 05/23/21 12:13 05/23/21 12:13 DC Sodium Bicarbonate (Sodium Bicarbonate) 50 meq STAT STAT IV 05/23/21 15:51 05/23/21 16:05 DC 05/23/21 15:51 Sodium Bicarbonate (Sodium Bicarbonate) 50 meq STAT STAT IV 05/23/21 15:51 05/23/21 16:06 DC 05/23/21 15:51 Meropenem 1000 mg/ Sodium Chloride 100 ml @ 200 mls/hr Q8H IV 05/23/21 20:00 06/22/21 19:59 05/25/21 04:26 Sodium Chloride 100 ml @ ud STK-MED ONCE IV 05/23/21 20:04 05/23/21 20:04 DC Sodium Chloride 100 ml @ ud STK-MED ONCE IV 05/24/21 03:04 05/24/21 03:04 DC Furosemide (Lasix) 40 mg DAILY IV 05/24/21 09:00 05/24/21 09:08 DC Insulin Glargine (Lantus) 20 unit HS SQ 05/24/21 21:00 05/25/21 08:15 DC 05/24/21 21:03 Potassium Chloride 100 ml @ 50 mls/hr OT ONCE IV 05/24/21 09:00 05/24/21 10:59 DC 05/24/21 10:24 Lactulose (Cephulac) 20 gm DAILY NG 05/24/21 09:00 06/23/21 08:59 05/25/21 08:06 Furosemide (Lasix) 40 mg DAILY IV 05/24/21 09:08 06/23/21 08:59 05/25/21 08:05 Potassium Chloride 100 ml @ 50 mls/hr STAT STAT IV 05/24/21 10:20 05/24/21 11:34 DC Potassium Chloride 20 meq/ Potassium Chloride 200 ml @ 50 mls/hr 1020 ONCE IV 05/24/21 10:20 05/24/21 14:19 DC 05/24/21 13:17 Potassium Chloride 100 ml @ ud STK-MED ONCE IV 05/24/21 13:11 05/24/21 13:11 DC Insulin Human Lispro (Humalog) 1 unit STK-MED ONCE .ROUTE 05/25/21 06:07 05/25/21 06:08 DC Sodium Chloride 100 ml @ ud STK-MED ONCE IV 05/25/21 06:51 05/25/21 06:51 DC Insulin Glargine (Lantus) 30 unit HS SQ 05/25/21 21:00 06/24/21 20:59 UNV Sterile Water (Water) 1,000 ml STK-MED ONCE .ROUTE 05/25/21 08:23 05/25/21 08:23 DC VTE VTE Risk Total Score: 5 VTE Risk Score VTE Risk: Score 0-1 = Low Risk (Aggressive mobilization; early ambulation; no VTE prophylaxis required) Score 2: Moderate Risk (Intermittent/Pneumatic Compression Device OR Lovenox/Heparin/Coumadin) Score 3-4: High Risk (Intermittent/Pneumatic Compression Device AND Lovenox/Heparin/Coumadin) Score > or =5: Highest Risk (Intermittent/Pneumatic Compression Device AND Lovenox/Heparin/Coumadin) Antico:Hep/LMWH/Coum/Xarelto: Yes Mechanical device ordered: Yes VTE VTE Present on Admission: No Currently receiving anticoagul: Yes VTE Risk Total Score: 5 Antico:Hep/LMWH/Coum/Xarelto: Yes Mechanical device ordered: Yes Assessment/Plan Assessment/Plan Assessment/Plan 35 yo Female with hypoxemic respiratory failure/ARDS - COVID-19 infection BIPAP/therapeutic protocol completed ultimately requiring intubation 05/06 Assessment/Plan 1. cont current vent support.Currently patient is on pressure control. d 2. cont analgesosedation and neuromuscular blockade 3. cont lasix 4. replete K, Monitor and correct electrolytes 5. IV steroids. increase lantus to 30 units Qhs 6. vanco/meropenem per ID consultation 7. DVT/GI prophylaxis Patient seen through remote audiovisual assessment through HIPAA compliant setup. All labs, flowsheets, and images reviewed Cumulative nonprocedural critical care time spent in directed patient care = 60min Plan COURTNEY WINTERS MD May 25, 2021 08:31
[2021-05-25] MEDS: VANCOMYCIN HCL 1 GM in NS 250ML 250 ML IV SCH ×2 (09:49→23:00)
[2021-05-25] MEDS: NS IV SCH (09:49)
[2021-05-25] MEDS: VERSED IV SCH (09:49)
[2021-05-25] MEDS: CLINIMIX IV SCH (09:50)
[2021-05-25] MEDS: INFUVITE ADULT IV SCH (09:50)
--- NOTE | 2021-05-25 10:00 | NUR ---
DR. DENISE @ BEDSIDE NEW ORDERS RECEIVED FOR TRICKLE FEEDINGS @ 10MLS/HR HOLD IF RESIDUAL IS GREATER THAN 60 MLS.
--- NOTE | 2021-05-25 11:00 | NUR ---
TRICKLE FEEDINGS STARTED WITH JEVITY @ 10MLC/HR
[2021-05-25] MEDS: KCL 20MEQ/100ML 100 ML IV SCH ×2 (11:05→13:12)
--- NOTE | 2021-05-25 11:40 | NUR ---
INCREASED FIO2 TO 100% PATIENT O2 SAT 84% RT NOTIFIED. INCREASED FIO2 TO 100% Addendum: 05/25/21 at 1932 by Ellie Hand RN RN CORRECT TIME 1340*
--- NOTE | 2021-05-25 12:00 | NUR ---
LEVOPHED DISCONTINUED. BP 133/58 Addendum: 05/25/21 at 1941 by Ellie Hand RN RN HR 115
--- NOTE | 2021-05-25 13:54 | NUR ---
NOTIFIED DR. DENISE OF O2 SAT 82% HR 120. RT INCREASED FIO2 TO 100% PATIENT ONLY 87% HR 111. STATES TO NOTIFY INTESIVIST. DR. WINTERS NOTIFIED. STATES TO PRONE IF NECESSARY IF O2 CONTINUES TO DROP. DR. SCHILLING WILL NOTIFY FAMILY OF PATIENT CONDITION.
--- NOTE | 2021-05-25 14:35 | NUR ---
DR. WINTERS NOTIFIED OF O2 SAT 81% AND RT CHANGED TO PRESSURE CONTROL.
--- NOTE | 2021-05-25 15:40 | NUR ---
O2 SAT 80% PLACED PATIENT IN PRONE POSITION. O2 SAT 72%
--- NOTE | 2021-05-25 16:15 | PRM.PN ---
PROGRESS NOTE SUBJECTIVE Intubated and sedated, Ventilation mode Assist-control/CMV,FIGO 2 -100%, PEEP 16, RR-30,Minute ventilation 11.8 L/min OBJECTIVE Vital Signs Date Time Temp Pulse Resp B/P (MAP) Pulse Ox O2 Delivery O2 Flow Rate FiO2 05/25/21 12:29 109 30 82 90 05/25/21 12:15 98.8 112 31 133/61 (85) 88 05/25/21 12:00 98.8 105 30 137/67 (90) 88 128/59 (82) 05/25/21 11:45 99.0 110 31 131/62 (85) 86 05/25/21 11:32 Mechanical Ventilator 05/25/21 11:32 90 05/25/21 11:30 99.0 105 129/61 (83) 87 05/25/21 11:15 99.0 111 125/61 (82) 87 05/25/21 11:00 99.0 111 30 128/63 (84) 87 05/25/21 10:45 99.0 111 133/64 (87) 87 05/25/21 10:30 99.0 113 124/61 (82) 87 05/25/21 10:27 109 30 87 90 05/25/21 10:15 99.1 118 118/59 (78) 87 05/25/21 10:00 99.1 112 135/71 (92) 87 129/64 (85) 05/25/21 09:45 99.1 108 30 117/59 (78) 88 05/25/21 09:30 99.1 110 126/62 (83) 87 05/25/21 09:15 99.0 108 125/61 (82) 88 05/25/21 09:00 99.0 107 120/61 (80) 90 05/25/21 08:45 98.8 111 140/70 (93) 91 05/25/21 08:30 98.6 109 30 126/62 (83) 91 05/25/21 08:15 98.6 103 134/62 (86) 91 05/25/21 08:05 129/62 05/25/21 08:00 98.6 108 31 115/67 (83) 89 112/55 (74) 05/25/21 07:45 98.6 108 30 114/56 (75) 89 05/25/21 07:44 Mechanical Ventilator 05/25/21 07:44 90 05/25/21 07:30 98.4 102 31 109/53 (71) 88 05/25/21 07:19 115 30 86 90 05/25/21 07:15 98.4 99 99/49 (66) 87 05/25/21 07:09 101 30 91 Mechanical Ventilator 90 05/25/21 07:00 98.6 98 100/48 (65) 87 HEENT: Pupil equal sluggishly reactive, Supple Heart: Tachycardic regular rate and rhythm Lungs air entry symmetrical no Rales or rhonchi heard Abdomen soft not distended, bowel sounds hypoactive Extremities edema present 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: Patient is sedated and paralyzed Laboratory Tests Test 05/22/21 16:24 05/22/21 23:11 05/23/21 04:21 05/23/21 04:23 Bedside Glucose 234 (70 - 110) 273 (70 - 110) Blood Gas Sample Site ART LINE Blood Gas pH 7.265 (7.350-7.450) Blood Gas PCO2 69.0 mmHg (35.0-45.0) Blood Gas PO2 69.4 mmHg (80.0-100.0) Blood Gas HCO3 30.6 mmol/L (22.0-26.0) Blood Gas Base Excess 2.7 mmol/L (-2.0-2.0) Lucas Test N/A Arterial Blood Oxygen Saturation 91.6 % (94.0-97.00) Deoxyhemoglobin 8.3 % (0.0-5.0) Carboxyhemoglobin 1.4 % (0.0-3.9) Methemoglobin 0.3 % (0.00-5.0) Total Hemoglobin 9.0 % (12.0-17.8) Total Oxygen Concentration 11.5 % (13.5-17.5) Blood Gas Temperature 37.0 Oxygen Delivery Method (LAB) VENT Blood Gas Vent Mode PRVC Blood Gas Vent Rate 35 FiO2 100 % (20-101) Blood Gas PEEP 18.0 CMH2O Total Carbon Dioxide 32.7 mmol/L (23-27) White Blood Count 13.6 10^3/uL (4.5-11.0) Red Blood Count 2.81 10^6/uL (4.00-5.20) Hemoglobin 8.4 g/dL (12.0-15.0) Hematocrit 27.2 % (36.0-46.0) Mean Corpuscular Volume 96.8 fL (78-100) Mean Corpuscular Hemoglobin 29.9 pg (26-34) Mean Corpuscular Hemoglobin Concent 30.9 g/dL (33-36.5) Red Cell Distribution Width 14.9 % (11.5-14.5) Platelet Count 301 10^3/uL (150-400) Mean Platelet Volume 10.4 fL (7.8-11.0) Neutrophils (%) (Auto) 90.8 % (41.0-85.0) Lymphocytes (%) (Auto) 7.3 % (24.0-44.0) Monocytes (%) (Auto) 1.7 % (5.0-12.0) Neutrophils # (Auto) 12.4 10^3/uL (1.8-7.7) Lymphocytes # (Auto) 0.99 10^3/uL1 (1.0-4.8) Monocytes # (Auto) 0.2 10^3/uL (0.3-0.8) Absolute Immature Granulocyte (auto 0.71 10^3 u/L (0-2) Absolute Eosinophils (auto) 0.0 10^3/uL (0.0-0.2) Immature Granulocytes % 5.20 % (0.00-0.50) Eosinophils % 0.1 % (0.0-5.0) Basophils % 0.1 % (0.0-0.2) Basophils # 0.0 10^3/uL (0.0-0.1) Sodium Level 145 mmol/L (132-145) Potassium Level 3.4 mmol/L (3.6-5.2) Chloride Level 107.0 mmol/L (96-109) Carbon Dioxide Level 31.4 mmol/L (20.0-32) Anion Gap 10.0 Blood Urea Nitrogen 29 mg/dL (7-18) Creatinine 0.59 mg/dL (0.59-1.40) Estimated GFR () 139.6 (>/=60) Est GFR (CKD-EPI)(Non-Afr Russian) 115.3 (>/=60) BUN/Creatinine Ratio 49.0 Glucose Level 297 mg/dL (70-110) Calcium Level 8.7 mg/dL (8.4-10.5) Total Bilirubin 0.5 mg/dL (0.2-1.0) Aspartate Amino Transf (AST/SGOT) 30 U/L (0-35) Alanine Aminotransferase (ALT/SGPT) 45 U/L (12-78) Alkaline Phosphatase 112 U/L (50-136) Total Protein 6.3 g/dL (6.4-8.2) Albumin 1.8 g/dL (3.4-5.0) Globulin 4.5 Albumin/Globulin Ratio 0.400 Test 05/23/21 05:16 05/23/21 08:58 05/23/21 11:09 05/23/21 15:35 Differential Total Cells Counted 100 #CELLS Segmented Neutrophils 90 % (31-76) Band Neutrophils 1 % (2-6) Lymphocytes 8 % (25-36) Metamyelocytes 1 % Differential Comment NORMAL Platelet Estimate ADEQUATE Platelet Morphology NORMAL Triglycerides Level 159 mg/dL (20-160) Vancomycin Level Trough 16.2 ug/mL (5.00-10.0) Bedside Glucose 267 (70 - 110) Blood Gas Sample Site AVON Blood Gas pH 7.044 (7.350-7.450) Blood Gas PCO2 135.7 mmHg (35.0-45.0) Blood Gas PO2 83.3 mmHg (80.0-100.0) Blood Gas HCO3 36.2 mmol/L (22.0-26.0) Blood Gas Base Excess 3.4 mmol/L (-2.0-2.0) Lucas Test N/A Arterial Blood Oxygen Saturation 92.2 % (94.0-97.00) Deoxyhemoglobin 7.7 % (0.0-5.0) Carboxyhemoglobin 1.0 % (0.0-3.9) Methemoglobin 0.6 % (0.00-5.0) Total Hemoglobin 9.4 % (12.0-17.8) Total Oxygen Concentration 12.1 % (13.5-17.5) Blood Gas Temperature 37.0 Oxygen Delivery Method (LAB) VENT Blood Gas Vent Mode AC/PC Pi26/Ti 0.80 Blood Gas Vent Rate 35 FiO2 100 % (20-101) Blood Gas PEEP 18.0 CMH2O Total Carbon Dioxide 40.4 mmol/L (23-27) Test 05/23/21 16:08 05/23/21 21:18 05/24/21 05:00 05/24/21 06:22 Bedside Glucose 291 (70 - 110) 314 (70 - 110) White Blood Count 18.2 10^3/uL (4.5-11.0) Red Blood Count 2.75 10^6/uL (4.00-5.20) Hemoglobin 8.2 g/dL (12.0-15.0) Hematocrit 27.4 % (36.0-46.0) Mean Corpuscular Volume 99.6 fL (78-100) Mean Corpuscular Hemoglobin 29.8 pg (26-34) Mean Corpuscular Hemoglobin Concent 29.9 g/dL (33-36.5) Red Cell Distribution Width 15.4 % (11.5-14.5) Platelet Count 418 10^3/uL (150-400) Mean Platelet Volume 10.3 fL (7.8-11.0) Neutrophils (%) (Auto) 89.1 % (41.0-85.0) Lymphocytes (%) (Auto) 6.9 % (24.0-44.0) Monocytes (%) (Auto) 3.9 % (5.0-12.0) Neutrophils # (Auto) 16.2 10^3/uL (1.8-7.7) Lymphocytes # (Auto) 1.26 10^3/uL1 (1.0-4.8) Monocytes # (Auto) 0.7 10^3/uL (0.3-0.8) Absolute Immature Granulocyte (auto 1.17 10^3 u/L (0-2) Absolute Eosinophils (auto) 0.0 10^3/uL (0.0-0.2) Immature Granulocytes % 6.40 % (0.00-0.50) Eosinophils % 0.0 % (0.0-5.0) Basophils % 0.1 % (0.0-0.2) Basophils # 0.0 10^3/uL (0.0-0.1) Blood Gas Sample Site ART LINE Blood Gas pH 7.232 (7.350-7.450) Blood Gas PCO2 86.5 mmHg (35.0-45.0) Blood Gas PO2 113.7 mmHg (80.0-100.0) Blood Gas HCO3 35.6 mmol/L (22.0-26.0) Blood Gas Base Excess 6.5 mmol/L (-2.0-2.0) Lucas Test N/A Arterial Blood Oxygen Saturation 97.5 % (94.0-97.00) Deoxyhemoglobin 2.5 % (0.0-5.0) Carboxyhemoglobin 0.9 % (0.0-3.9) Methemoglobin 0.6 % (0.00-5.0) Total Hemoglobin 8.7 % (12.0-17.8) Total Oxygen Concentration 12.0 % (13.5-17.5) Blood Gas Temperature 37.0 Oxygen Delivery Method (LAB) VENT Blood Gas Vent Mode PCV Blood Gas Vent Rate 35 FiO2 100 % (20-101) Blood Gas PEEP 18.0 CMH2O Sodium Level 148 mmol/L (132-145) Potassium Level 3.3 mmol/L (3.6-5.2) Chloride Level 110.0 mmol/L (96-109) Carbon Dioxide Level 36.1 mmol/L (20.0-32) Total Carbon Dioxide 38.2 mmol/L (23-27) Anion Gap 5.2 Blood Urea Nitrogen 36 mg/dL (7-18) Creatinine 0.67 mg/dL (0.59-1.40) Estimated GFR () 120.5 (>/=60) Est GFR (CKD-EPI)(Non-Afr Russian) 99.6 (>/=60) BUN/Creatinine Ratio 53.0 Glucose Level 289 mg/dL (70-110) Calcium Level 8.7 mg/dL (8.4-10.5) Total Bilirubin 0.5 mg/dL (0.2-1.0) Aspartate Amino Transf (AST/SGOT) 27 U/L (0-35) Alanine Aminotransferase (ALT/SGPT) 54 U/L (12-78) Alkaline Phosphatase 116 U/L (50-136) Total Protein 6.0 g/dL (6.4-8.2) Albumin 1.7 g/dL (3.4-5.0) Globulin 4.3 Albumin/Globulin Ratio 0.395 Segmented Neutrophils 87 % (31-76) Lymphocytes 9 % (25-36) Monocytes 4 % (3-9) Platelet Estimate SLIGHTLY INCREASED Platelet Morphology NORMAL Test 05/24/21 12:54 05/24/21 20:18 05/24/21 21:10 05/25/21 02:29 Bedside Glucose 295 (70 - 110) 276 (70 - 110) 289 (70 - 110) Vancomycin Level Trough 21.8 ug/mL (5.00-10.0) Test 05/25/21 05:00 05/25/21 05:05 05/25/21 05:52 05/25/21 07:00 Blood Gas Sample Site ART LINE ART LINE Blood Gas pH 7.132 (7.350-7.450) 7.224 (7.350-7.450) Blood Gas PCO2 125.9 mmHg (35.0-45.0) 95.1 mmHg (35.0-45.0) Blood Gas PO2 57.3 mmHg (80.0-100.0) 45.6 mmHg (80.0-100.0) Blood Gas HCO3 41.1 mmol/L (22.0-26.0) 38.4 mmol/L (22.0-26.0) Blood Gas Base Excess 9.5 mmol/L (-2.0-2.0) 8.9 mmol/L (-2.0-2.0) Lucas Test N/A N/A Arterial Blood Oxygen Saturation 84.3 % (94.0-97.00) 80.1 % (94.0-97.00) Deoxyhemoglobin 15.4 % (0.0-5.0) 19.5 % (0.0-5.0) Carboxyhemoglobin 1.5 % (0.0-3.9) 1.6 % (0.0-3.9) Methemoglobin 0.7 % (0.00-5.0) 0.5 % (0.00-5.0) Total Hemoglobin 9.0 % (12.0-17.8) 8.5 % (12.0-17.8) Total Oxygen Concentration 10.5 % (13.5-17.5) 9.4 % (13.5-17.5) Blood Gas Temperature 37.0 37.0 Oxygen Delivery Method (LAB) VENT VENT Blood Gas Vent Mode PCV AC/VC Blood Gas Vent Rate 35 30 FiO2 90 % (20-101) 90 % (20-101) Blood Gas PEEP 18.0 CMH2O 16.0 CMH2O Total Carbon Dioxide 45.0 mmol/L (23-27) 41.3 mmol/L (23-27) White Blood Count 21.5 10^3/uL (4.5-11.0) Red Blood Count 2.77 10^6/uL (4.00-5.20) Hemoglobin 8.3 g/dL (12.0-15.0) Hematocrit 28.1 % (36.0-46.0) Mean Corpuscular Volume 101.4 fL (78-100) Mean Corpuscular Hemoglobin 30.0 pg (26-34) Mean Corpuscular Hemoglobin Concent 29.5 g/dL (33-36.5) Red Cell Distribution Width 16.0 % (11.5-14.5) Platelet Count 414 10^3/uL (150-400) Mean Platelet Volume 10.3 fL (7.8-11.0) Neutrophils (%) (Auto) 86.6 % (41.0-85.0) Lymphocytes (%) (Auto) 8.7 % (24.0-44.0) Monocytes (%) (Auto) 4.7 % (5.0-12.0) Neutrophils # (Auto) 18.6 10^3/uL (1.8-7.7) Lymphocytes # (Auto) 1.88 10^3/uL1 (1.0-4.8) Monocytes # (Auto) 1.0 10^3/uL (0.3-0.8) Absolute Immature Granulocyte (auto 1.29 10^3 u/L (0-2) Absolute Eosinophils (auto) 0.0 10^3/uL (0.0-0.2) Immature Granulocytes % 6.00 % (0.00-0.50) Eosinophils % 0.0 % (0.0-5.0) Basophils % 0.0 % (0.0-0.2) Basophils # 0.0 10^3/uL (0.0-0.1) Sodium Level 148 mmol/L (132-145) Potassium Level 3.3 mmol/L (3.6-5.2) Chloride Level 109.0 mmol/L (96-109) Carbon Dioxide Level 38.6 mmol/L (20.0-32) Anion Gap 3.7 Blood Urea Nitrogen 40 mg/dL (7-18) Creatinine 0.73 mg/dL (0.59-1.40) Estimated GFR () 109.2 (>/=60) Est GFR (CKD-EPI)(Non-Afr Russian) 90.2 (>/=60) BUN/Creatinine Ratio 54.0 Glucose Level 308 mg/dL (70-110) Calcium Level 8.4 mg/dL (8.4-10.5) Magnesium Level 2.0 mg/dL (1.8-2.4) Total Bilirubin 0.5 mg/dL (0.2-1.0) Aspartate Amino Transf (AST/SGOT) 40 U/L (0-35) Alanine Aminotransferase (ALT/SGPT) 107 U/L (12-78) Alkaline Phosphatase 140 U/L (50-136) Total Protein 5.9 g/dL (6.4-8.2) Albumin 1.9 g/dL (3.4-5.0) Globulin 4.0 Albumin/Globulin Ratio 0.475 Segmented Neutrophils 95 % (31-76) Lymphocytes 3 % (25-36) Monocytes 2 % (3-9) Platelet Estimate SLIGHTLY INCREASED Platelet Morphology NORMAL Blood Gas Tidal Volume 380 ML Test 05/25/21 11:45 Bedside Glucose 282 (70 - 110) ASSESSMENT Acute hypoxemic , Hypercarbic respiratory failure Acute viral pneumonia with ARDS, With secondary bacterial pneumonia suspected COVID-19 infection PLAN Prognosis is very poor, telemetry dispatch manager recommended continue same management, oxygen saturation gradually getting worse, patient is currently on broad-spectrum antibiotic despite the antibiotic patient is spiking temperature, family members were informed and explained her prognosis appear poor LUC DENISE MD May 25, 2021 16:15
--- NOTE | 2021-05-25 16:35 | NUR ---
NOTIFIED DR. DENISE THAT PRONING IS NOT WORKING. NEW ORDERS RECEIVED TO TRY LAYING ON SIDE. PATIENT PLACED ON RIGHT SIDE. O2 SAT 75%
--- NOTE | 2021-05-25 18:00 | NUR ---
DR. DENISE @ BEDSIDE. NEW ORDERS RECEIVED TO LET FAMILY COME SEE PATIENT. FAMILY NOTIFIED.
--- NOTE | 2021-05-25 18:30 | NUR ---
REPOSITIONED TO LEFT SIDE O2 SAT 82%
--- NOTE | 2021-05-25 18:45 | NUR ---
RECEIVED REPORT FROM KULDIP, PLAN OF PATIENT CARE WAS TOLD TO ME CONTINUING TO MONITOR PT BUT WE ARE OUT OF OPTIONS VIA VENTILATOR
--- NOTE | 2021-05-25 19:20 | NUR ---
[address] DENISE ABOUT PTS STATUS, DR ORTIZ SAID UNFORTUNATELY THERE IS NOTHING MORE WE CAN DO VENTILATOR WASHBURN TO OXYGENATE PATIENT
[2021-05-25] MEDS ORDERED: LANTUS SQ SCH (21:00)
--- NOTE | 2021-05-25 23:30 | NUR ---
[address] WILKINS ABOUT PTS STATUS AND VENT SETTINGS, WE DISCUSSED HOW PRONING THE PT HAD MADE THEM WORSE DURING THE DAY, DR WILKINS SAID THERE ARE NO MORE VENT INTERVENTIONS WE CAN DO TO IMPROVE O2. WILL CONTINUE TO MONITOR PATIENT
[2021-05-26] VITALS (52 sets, daily range): BP systolic 0–121; BP diastolic 0–83
[2021-05-26] MEDS: HUMULIN R SQ SCH ×3 (01:25→12:00)
[2021-05-26] MEDS: NORCURON IV PRN (01:29)
--- NOTE | 2021-05-26 01:40 | NUR ---
aspirated 60ml of gastrict residuals held feeding per md order
--- NOTE | 2021-05-26 03:48 | NUR ---
PTS PUPILS ARE FIXATED AT A 1-2MM
[2021-05-26] MEDS ORDERED: NS 100ML 100 ML IV ONE (03:55)
--- NOTE | 2021-05-26 03:59 | NUR ---
DR WILKINS NOTIFIED OF PT STATUS CHANGE BP DECREASING TO [address] WILKINS ORDERED VASOPRESSIN DRIP AT 0.04 IF WE MAX OUT ON LEVOPHED, DR WILKINS ALSO ORDERED THAT WE TRY AND BAG VENTILATE THE PT TO SEE IF HER O2 RISES
--- NOTE | 2021-05-26 04:29 | NUR ---
SPOKE WITH DR WILKINS ABOUT BAG VENTILATION TRIAL, THE TRIAL WAS UNSUCCESFUL AND WE WHERE UNABLE TO BAG THE PATIENT ABOVE 75 O2 SAT WHEN PLACED BACK ON THE VENT THE PATIENT CAME UP TO 81 ON O2 SAT BUT NO HIGHER DURING BAG VENTING RT HAD TO USE EXCESS OF 70CM OF WATER IN PRESSURE TO OBTAIN CHEST RISE AND FALL DR WILKINS SAID TO CONTINUE MONITORING
[2021-05-26 04:55] LABS: BASOPHIL # 0.1 10^3/uL (0.0-0.1); BASOPHIL % 0.2 % (0.0-0.2); LYMPHOCYTES # 4.93 10^3/uL1 (1.0-4.8); LYMPHOCYTES % 19.7 % (24.0-44.0); MEAN CORP HGB 29.4 pg (26-34); MONOCYTES # 0.7 10^3/uL (0.3-0.8); MONOCYTES % 2.8 % (5.0-12.0); NEUTROPHIL # 19.4 10^3/uL (1.8-7.7); NEUTROPHILS % 77.3 % (41.0-85.0); PLATELET COUNT 406 10^3/uL (150-400); RED CELL DISTRIBUTION WIDTH 16.5 % (11.5-14.5)
[2021-05-26 05:03] LABS: CALCIUM 8.1 mg/dL (8.4-10.5); CARBON DIOXIDE 36.5 mmol/L (20.0-32)
[2021-05-26] MEDS: MERREM 1,000 MG in NS 100ML 100 ML IV SCH ×2 (05:10→12:00)
[2021-05-26] MEDS: SOLU-MEDROL IV SCH (05:10)
[2021-05-26 05:30] LABS: LYMPHOCYTE 5 % (25-36); MONOCYTE 3 % (3-9); NUCLEATED RED BLOOD CELLS 9 % (0-0); SEGMENTED NEUTROPHILS 82 % (31-76)
[2021-05-26] MEDS ORDERED: LEVOPHED ONE (05:31)
[2021-05-26] MEDS ORDERED: NS 250ML 250 ML ONE (05:32)
--- NOTE | 2021-05-26 05:55 | NUR ---
NOTIFIED DR WILKINS OF PTS DECLINING BLOOD PRESSURES WITH MAP LESS THAT 60 PT WAS MAXED ON LEVOPHED AT [address] OF HR 131 TEMP 100.4 O2 SAT 70 BP OF 90/57 DR ORDERED STAT ABG
[2021-05-26] MEDS ORDERED: VASOPRESSIN IV SCH (06:00)
[2021-05-26] MEDS ORDERED: NS IV SCH (06:00)
--- NOTE | 2021-05-26 06:00 | NUR ---
DR WILKINS ORDERED BICARB DRIP AND SODIUM BICARB PUSH PRN ONE TIME AFTER HEARING REPORT OF ABG
[2021-05-26 06:16] LABS: ABG PCO2 79.6 mmHg (35.0-45.0); ABG PH 7.195 (7.350-7.450); HCO3act 30.1 mmol/L (22.0-26.0); pO2 45.8 mmHg (80.0-100.0)
[2021-05-26] MEDS ORDERED: SODIUM BICARBONATE IV ONE ×4 (06:18→10:00)
[2021-05-26] MEDS ORDERED: D5W 1000ML 1,000 ML ONE (06:19)
[2021-05-26] MEDS ORDERED: D5W IV ONE (06:30)
--- NOTE | 2021-05-26 06:30 | NUR ---
REPORT GIVEN TO LYNNE BURKETT
[2021-05-26] MEDS ORDERED: DOPamine 400 MG/D5W 250 ML 250 ML IV SCH (08:30)
[2021-05-26] MEDS: LOVENOX SQ SCH (08:30)
--- NOTE | 2021-05-26 08:39 | NUR ---
07-In room to assess patient, patient hypotensive, tachycardic, and low O2 Sat, Patient on three vasopresser drips see NOV, 729 pushed one amp of bicarb with no change to blood pressure, 819- Patient started on Dopamine drip at 2 units/kg/min 0839- No pulse, code blue called, cpr initiated, patient is already intubated 0841-Team to room, Dr Montano, Celina RT, Rajani RT, Vanessa Family Partner, Tripp Leggett, Educator, Erik RN, Angelia Rogers, RN Director, Denae RN, Marti RN, Watson Kinsey RN, Elda RN, 500 ml NS bolus started 0842- CPR change, analyzed patient, no pulse, PEA, resumed CPR 0844- Epi 1 mg Epi given IV 0845- Pulse check, stop CPR, felt thready pulse to groin, Vitals 129/69, Temp 101.3, Pulse-116, O2 Sat- 62% continuing to bag 0847-Continuing to bag due to O2 Sat below 63%, patient unable to tolerate vent 0852-Attempted to place patient back on vent, 02 sat remains below 57%, Vitals BP94/56, Pulse 126, and Temp 100.6 0854-Back to bagging, unable to maintain SATs BP 84/54, Pulse 125, O2 sat-67% Temp 100.4, Dr. Merrill in room at bedside to get status on pt and went out to speak to family 0858-Watson Kinsey RN in to tell team that family wishes to keep going with CPR until and children get to bedside, continuing to bag pt due to unable to tolerate vent, BP 87/51, Pulse-122, O2 SAT 68%, Temp-99.5 0906- Dopamin drip increased to 4 mcg/kg/min 09- Back on vent and patient unable to hold her o2 sat, back to bagging patient, BP 87/53, Pulse 119, Temp 99.5, O2 68% 0908- Attempted to place patient back on vent, increased tidal volume, BP 85/51, Pulse 123, Temp 99.5, O2 51% 0911- Increase vent flow, BP 83/49 Pulse 123 O2 47% on vent 0914- swapped bag to manual bag, unable to keep Sats above 46%, BP 79/47, Pulse 124, O2 57%, Temp 99.1 0916- Dopamin increased to 6 mcg/kg/min, BP 82/48 Pulse 122, O2 sat 44%, Temp 99.0 0921-Attempted vent again, BP 79/48 Pulse 115, O2 sat 44% 0923- Changed to manual bagging, unable to maintain sat on mech vent above 39%, BP 75/46 Pulse 123, O2 sat 41% 0925- Dopamin increased to 8 mcg/kg/min, BP 76/46, Pulse 122, Temp 98.8, O2 sat 45% 0928- continuing to bag patient, BP 68/46, Pulse 119, O2 sat 31%, Temp 98.8 0930- Dopamin increased to 10 mcg/kg/min, BP 69/45, Pulse 122, O2 sat 56%, Temp 98.8 0935- Dopamin increased to 12 mcg/kg/min, BP 73/50 Pulse 122 O2 sat 60%, Temp 98.6 0936- vasopressin bag changed 0940- BP 69/48, Pulse 122, O2 sat 58%, Temp 98.6 0941- Dopamin increased to 14 mcg/kg/min 0946 Dopamin increased to 16 mcg/kg/min, BP 67/47, Pulse 119, O2 sat 49%, Temp 98.6, no cap refill 0951- Dopamin increased to 18 mcg/kg/min, BP 61/44, Pulse 112, O2 sat 35%, Temp 98.4 0953- Attempted to place patient back on vent, PEEP 16, VT 450, Pulse 121, BP 66/49, O2 sat 40%, Temp 98.4 0956- Dopamin increased to 20 mcg/kg/min, BP 67/48, Pulse 123, O2 sat 36%, Temp 98.4, obtained ABG for confirmation of sats 1000-Telemed Dr. Garcia on and in room, BP 68/48, Pulse 123, O2 sat 32%, Temp 98.2, Bicarb 1 AMP IVpush 1003- BP 72/51, Pulse 125, O2 sat 24%, Temp 98.2 1008- BP 61/45, Pulse 123, O2 sat 40% 1010- Altagracia RT at bedside to report ABG results to this nurse 1023- DC Versed and Precedex, Bicarb 1 AMP pushIV 1029- Temp 98.1, BP 52/40, Pulse 118, O2 sat 24% 1057 Blood glucose 337, Family in waiting room, this nurse out to talk to family
--- NOTE | 2021-05-26 08:40 | NUR ---
CALLED TO ROOM, PT SPO2 WAS IN THE 50-60, AND CPR WAS INITIATED. I REMOVED PATIENT FROM THE VENTILATOR AND BEGAN TO BAG VIA AMBU BAG AND 100% FIO2. SPO2 REMAINED LOW DURING THE CODE. WE TRIED TO PLACE PATIENT BACK ON THE VENTILATOR AFTER ROSC WAS OBTAINED, BUT SPO2 CONTINUED TO DECREASE. WE THEN RETURNED TO MANUALLY VENTILATION TO IMPROVE OXYGENATION. WE OBTAINED AN ABG TO CHECK TO OXYGENATION STATUS AFTER MANUAL VENTILATION FOR SEVERAL MINUTES, WE WERE ABLE TO PLACE HER BACK ON THE VENTILATOR. WHEN THE PATIENT CODED AGAIN, AND CPR WAS INITIATED FOR THE SECOND TIME AND COPIOUS AMOUNTS OF BRIGHT RED BLOOD WAS NOTED IN THE TUBE. DR. LEONARD NOTIFIED AT THAT TIME. TIME OF WAS CALLED AT 1136. Addendum: 05/26/21 at 1745 by Altagracia Nolasco RRT RT Amended: Links added.
[2021-05-26] MEDS: CEPHULAC NG SCH (09:00)
[2021-05-26] MEDS: PEPCID IV SCH (09:00)
[2021-05-26] MEDS: LASIX IV SCH (09:00)
[2021-05-26] MEDS ORDERED: LEVOPHED IV ONE (10:00)
[2021-05-26] MEDS ORDERED: EPINEPHRINE IV ONE (10:00)
[2021-05-26] MEDS ORDERED: VASOPRESSIN IV ONE (10:00)
[2021-05-26] MEDS ORDERED: NS IV ONE ×2 (10:00)
[2021-05-26] MEDS: VANCOMYCIN HCL 1 GM in NS 250ML 250 ML IV SCH (10:00)
[2021-05-26 10:05] LABS: ABG PCO2 97.7 mmHg (35.0-45.0); ABG PH 7.001 (7.350-7.450); BE(B) -7.7 mmol/L (-2.0-2.0); HCO3act 23.6 mmol/L (22.0-26.0)
[2021-05-26] MEDS ORDERED: SODIUM BICARBONATE IV STA (10:26)
--- NOTE | 2021-05-26 10:40 | TELE.CONS ---
Consultation Reason for Consult: Reason for Consultation: resp failure History of Present Illness History of Patient Comments worsening hypoxia on the vent now on max pressors patient actively dying in extremis Review of Systems Allergies: Coded Allergies: ibuprofen (Verified Allergy, Unknown, 04/29/21) naproxen (Verified Allergy, Unknown, 04/29/21) VITALS REVIEW VITALS Intake and Output 05/26/21 06:00 Intake Total 4461 ml Output Total 4625 ml Balance -164 ml LABS LAB RESULTS labs and vitals reviewed VTE VTE Risk Total Score: 5 VTE Risk Score VTE Risk: Score 0-1 = Low Risk (Aggressive mobilization; early ambulation; no VTE prophylaxis required) Score 2: Moderate Risk (Intermittent/Pneumatic Compression Device OR Lovenox/Heparin/Coumadin) Score 3-4: High Risk (Intermittent/Pneumatic Compression Device AND Lovenox/Heparin/Coumadin) Score > or =5: Highest Risk (Intermittent/Pneumatic Compression Device AND Lovenox/Heparin/Coumadin) Antico:Hep/LMWH/Coum/Xarelto: Yes Mechanical device ordered: Yes VTE VTE Present on Admission: No Currently receiving anticoagul: Yes VTE Risk Total Score: 5 Antico:Hep/LMWH/Coum/Xarelto: Yes Mechanical device ordered: Yes Assessment/Plan Assessment/Plan Assessment/Plan 35 yo Female with hypoxemic respiratory failure/ARDS - COVID-19 infection BIPAP/therapeutic protocol completed ultimately requiring intubation 05/06 Plan 35 yo Female with hypoxemic respiratory failure/ARDS - COVID-19 infection BIPAP/therapeutic protocol completed ultimately requiring intubation 05/06 Assessment/Plan 1actively dying on 3 pressors all max unable to oxygenate patient family members enroute Patient seen through remote audiovisual assessment through HIPAA compliant setup. All labs, flowsheets, and images reviewed Cumulative nonprocedural critical care time spent in directed patient care = 60min Duration Duration or Time Spent with Pa: 60 mins DALIA SORIANO MD May 26, 2021 10:40
--- NOTE | 2021-05-26 11:30 | NUR ---
1125- Patient's and children at bedside 1130- BP 45/37, No pulse, CPR started 1132- Epi 1 mg IV push, Dr. Garcia at bedside via monitor 1133- No pulse, rhythm check, CPR resumed 1134-PEA, CPR continues 1135-Epi 1 mg given, flushed, O2 sat-83%, Temp 98.2 1135-CPR still in progress 1136-Pulse check, CPR stopped, Time of Called at [address] Garcia
--- NOTE | 2021-05-26 11:42 | PRM.PN ---
Assessment & Plan Problems/DX: (1) Cardiac arrest Provider Note: code blue supervised by me epi X 2 ambu bag CPR on 3 pressors max dose approx time 15 mins pressors continued unable to oxygenate family at bedside time of 11:28am additional CCT 60 mins DALIA SORIANO MD May 26, 2021 11:42
--- NOTE | 2021-05-26 16:08 | PRM.DC ---
Subjective Subjective Date of Discharge: May 26, 2021 Time of Request to Discharge: 16:04 Subjective 35-year-old female with previous history of no known medical Condition transferred from outside emergency room to this facility for acute respiratory failure with hypoxemia secondary to Covid 19 infection and patient condition progressively worsen and subsequently patient was intubated started on sedation muscle paralysis and patient condition continued to deteriorate developed ARDS and shock patient was started on mechanical ventilation with vasopressors and parenteral nutrition without any improvement and patient continued to deteriorate and on May 26, 2021 at 11:28 AM patient Exam Vital Signs Vital Signs Date Time Temp Pulse Resp B/P (MAP) Pulse Ox O2 Delivery O2 Flow Rate FiO2 05/26/21 11:30 98.2 69 29/26 (27) 46 05/26/21 11:18 35 100 05/26/21 08:40 Mechanical Ventilator 05/12/21 19:00 24.00 VTE VTE Risk Total Score: 5 VTE Risk Score VTE Risk: Score 0-1 = Low Risk (Aggressive mobilization; early ambulation; no VTE prophylaxis required) Score 2: Moderate Risk (Intermittent/Pneumatic Compression Device OR Lovenox/Heparin/Coumadin) Score 3-4: High Risk (Intermittent/Pneumatic Compression Device AND Lovenox/Heparin/Coumadin) Score > or =5: Highest Risk (Intermittent/Pneumatic Compression Device AND Lovenox/Heparin/Coumadin) Antico:Hep/LMWH/Coum/Xarelto: Yes Mechanical device ordered: Yes Objective Vitals and I/O Vital Sign - Last 24 Hours 05/25/21 05/25/21 05/25/21 05/25/21 16:15 16:30 16:45 16:46 Temp 98.6 98.6 Pulse 114 116 100 108 Resp 30 B/P (MAP) 100/56 (71) 100/56 (71) 98/53 (68) Pulse Ox 72 72 74 77 FiO2 100 05/25/21 05/25/21 05/25/21 05/25/21 16:55 17:00 17:15 19:00 Temp 98.2 98.1 98.1 97.7 Pulse 108 108 116 107 B/P (MAP) 108/51 (70) 92/51 (65) 115/61 (79) 122/65 (84) 95/54 (68) Pulse Ox 77 78 75 76 05/25/21 05/25/21 05/25/21 05/25/21 19:10 19:15 19:30 19:30 Temp 97.7 97.7 Pulse 101 103 Resp 30 B/P (MAP) 98/55 (69) 99/55 (70) Pulse Ox 83 80 O2 Delivery Mechanical Ventilator FiO2 100 05/25/21 05/25/21 05/25/21 05/25/21 19:45 20:00 20:13 20:15 Temp 97.7 97.7 97.7 Pulse 106 105 105 106 Resp 30 B/P (MAP) 95/54 (68) 91/51 (64) 94/54 (67) 92/54 (67) Pulse Ox 78 77 76 76 FiO2 100 05/25/21 05/25/21 05/25/21 05/25/21 20:30 20:45 21:00 21:08 Temp 97.7 97.7 97.9 Pulse 105 105 104 105 Resp 30 B/P (MAP) 92/54 (67) 93/54 (67) 89/52 (64) Pulse Ox 76 75 77 76 O2 Delivery Mechanical Ventilator FiO2 100 05/25/21 05/25/21 05/25/21 05/25/21 21:15 21:30 21:45 22:00 Temp 97.9 97.9 97.9 98.1 Pulse 105 103 105 103 B/P (MAP) 89/53 (65) 87/51 (63) 85/51 (62) 86/43 (57) 85/51 (62) Pulse Ox 77 78 78 79 05/25/21 05/25/21 05/25/21 05/25/21 22:15 22:17 22:30 22:45 Temp 98.1 98.1 98.1 Pulse 108 106 106 106 Resp 30 B/P (MAP) 102/59 (73) 98/56 (70) 94/54 (67) Pulse Ox 78 80 81 80 FiO2 100 05/25/21 05/25/21 05/25/21 05/25/21 23:00 23:15 23:30 23:45 Temp 98.2 98.2 98.2 98.2 Pulse 106 108 108 108 B/P (MAP) 95/55 (68) 91/54 (66) 94/56 (69) 93/54 (67) Pulse Ox 79 77 76 74 05/26/21 05/26/21 05/26/21 05/26/21 00:00 00:09 00:10 00:15 Temp 98.2 98.4 Pulse 108 108 109 Resp 30 B/P (MAP) 89/51 (64) 89/53 (65) 91/54 (66) Pulse Ox 72 72 72 O2 Delivery Mechanical Ventilator FiO2 100 05/26/21 05/26/21 05/26/21 05/26/21 00:20 00:30 00:45 01:00 Temp 98.4 98.6 98.6 Pulse 108 109 110 Resp 30 B/P (MAP) 86/51 (63) 91/54 (66) 87/53 (64) Pulse Ox 72 72 75 FiO2 100 05/26/21 05/26/21 05/26/21 05/26/21 01:15 01:30 01:45 02:00 Temp 98.6 98.8 98.8 99.0 Pulse 109 113 112 112 B/P (MAP) 85/52 (63) 83/52 (62) 93/55 (68) 95/50 (65) 95/55 (68) Pulse Ox 76 77 78 77 05/26/21 05/26/21 05/26/21 05/26/21 02:01 02:15 02:30 02:45 Temp 99.0 99.1 99.1 Pulse 113 114 113 115 Resp 30 B/P (MAP) 96/55 (69) 94/54 (67) 92/54 (67) Pulse Ox 77 76 78 77 FiO2 100 05/26/21 05/26/21 05/26/21 05/26/21 03:00 03:15 03:30 03:45 Temp 99.3 99.5 99.5 99.7 Pulse 115 116 119 121 B/P (MAP) 92/54 (67) 90/53 (65) 87/53 (64) 83/52 (62) Pulse Ox 77 76 76 76 05/26/21 05/26/21 05/26/21 05/26/21 04:00 04:15 04:21 04:30 Temp 99.9 99.9 99.9 Pulse 128 118 117 119 Resp 30 B/P (MAP) 93/55 (68) 112/61 (78) 111/56 (74) 95/57 (70) Pulse Ox 73 75 82 81 FiO2 100 05/26/21 05/26/21 05/26/21 05/26/21 04:38 04:43 04:45 05:00 Temp 99.9 100.0 Pulse 122 125 Resp 30 B/P (MAP) 106/54 (71) 98/54 (69) Pulse Ox 78 76 O2 Delivery Mechanical Ventilator FiO2 100 05/26/21 05/26/21 05/26/21 05/26/21 05:15 05:30 05:45 06:00 Temp 100.2 100.4 100.4 100.6 Pulse 128 131 133 131 B/P (MAP) 93/54 (67) 90/54 (66) 85/54 (64) 91/50 (64) 91/57 (68) Pulse Ox 75 73 74 71 05/26/21 05/26/21 05/26/21 05/26/21 06:15 06:30 06:45 07:00 Temp 100.6 100.8 100.9 101.1 Pulse 132 133 133 131 B/P (MAP) 86/55 (65) 78/52 (61) 74/51 (59) 69/48 (55) Pulse Ox 72 73 73 76 05/26/21 05/26/21 05/26/21 05/26/21 07:15 07:30 07:37 07:45 Temp 101.1 101.1 101.1 101.3 Pulse 129 126 125 123 B/P (MAP) 64/46 (52) 61/44 (50) 56/42 (47) 57/43 (48) 61/44 (50) Pulse Ox 79 81 80 82 05/26/21 05/26/21 05/26/21 05/26/21 08:00 08:00 08:00 08:01 Temp 101.3 101.3 Pulse 118 117 116 Resp 30 B/P (MAP) 55/41 (46) 55/41 (46) Pulse Ox 73 81 79 O2 Delivery Mechanical Ventilator FiO2 100 05/26/21 05/26/21 05/26/21 05/26/21 08:15 08:30 08:38 08:40 Temp 101.3 101.3 101.3 Pulse 108 88 83 115 Resp 35 B/P (MAP) 51/39 (43) 47/35 (39) 35/32 (33) Pulse Ox 84 85 44 O2 Delivery Mechanical Ventilator FiO2 100 05/26/21 05/26/21 05/26/21 05/26/21 08:45 08:47 09:15 09:30 Temp 101.3 101.1 99.1 98.8 Pulse 123 B/P (MAP) 121/67 (85) 108/83 (91) 81/48 (59) 66/44 (51) 120/67 (84) Pulse Ox 74 71 57 43 05/26/21 05/26/21 05/26/21 05/26/21 09:45 10:00 10:02 10:15 Temp 98.6 98.2 98.2 98.2 Pulse 120 B/P (MAP) 68/46 (53) 70/47 (55) 69/49 (56) 63/46 (52) Pulse Ox 49 34 34 36 05/26/21 05/26/21 05/26/21 05/26/21 10:30 10:45 11:00 11:15 Temp 98.1 98.1 98.1 98.1 Pulse 78 116 B/P (MAP) 51/39 (43) 51/39 (43) 52/39 (43) 41/33 (36) Pulse Ox 21 22 26 40 05/26/21 05/26/21 11:18 11:30 Temp 98.2 Pulse 113 69 Resp 35 B/P (MAP) (27) Pulse Ox 51 46 FiO2 100 Intake and Output 05/26/21 07:00 Intake Total 2041 ml Output Total 3125 ml Balance -1084 ml General: Other (Intubated sedated.) HEENT: Atraumatic, PERRLA, EOMI Neck: Supple, No JVD Extremities: No clubbing, No cyanosis Neuro: Other (Intubated sedated.) Psych/Mental Status: Other (Intubated sedated.) All Results(Lab/Rad) Laboratory Tests Test 05/02/21 06:37 05/02/21 08:25 White Blood Count 7.6 10^3/uL Red Blood Count 4.62 10^6/uL Hemoglobin 13.6 g/dL Hematocrit 40.6 % Mean Corpuscular Volume 87.9 fL Mean Corpuscular Hemoglobin 29.4 pg Mean Corpuscular Hemoglobin Concent 33.5 g/dL Red Cell Distribution Width 12.0 % Platelet Count 268 10^3/uL Mean Platelet Volume 10.5 fL Neutrophils (%) (Auto) 82.9 % Lymphocytes (%) (Auto) 11.7 % Monocytes (%) (Auto) 5.4 % Neutrophils # (Auto) 6.3 10^3/uL Lymphocytes # (Auto) 0.89 10^3/uL1 Monocytes # (Auto) 0.4 10^3/uL Absolute Immature Granulocyte (auto 0.12 10^3 u/L Absolute Eosinophils (auto) 0.0 10^3/uL Immature Granulocytes % 1.60 % Eosinophils % 0.0 % Basophils % 0.0 % Basophils # 0.0 10^3/uL Sodium Level 140 mmol/L Potassium Level 4.7 mmol/L Chloride Level 104.0 mmol/L Carbon Dioxide Level 27.6 mmol/L Anion Gap 13.1 Blood Urea Nitrogen 14 mg/dL Creatinine 0.62 mg/dL Estimated GFR () 131.8 Est GFR (CKD-EPI)(Non-Afr Nauruan) 108.9 BUN/Creatinine Ratio 22.0 Glucose Level 121 mg/dL Calcium Level 8.8 mg/dL Total Bilirubin 0.4 mg/dL Aspartate Amino Transf (AST/SGOT) 26 U/L Alanine Aminotransferase (ALT/SGPT) 37 U/L Alkaline Phosphatase 42 U/L Total Protein 6.7 g/dL Albumin 2.5 g/dL Globulin 4.2 Albumin/Globulin Ratio 0.595 Blood Gas Sample Site RT RADIAL ARTERY Blood Gas pH 7.405 Blood Gas PCO2 41.1 mmHg Blood Gas PO2 82.5 mmHg Blood Gas HCO3 25.2 mmol/L Blood Gas Base Excess 0.4 mmol/L Lucas Test POSITIVE Arterial Blood Oxygen Saturation 95.5 % Deoxyhemoglobin 4.5 % Carboxyhemoglobin 0.6 % Methemoglobin 0.3 % Total Hemoglobin 14.6 % Total Oxygen Concentration 19.5 % Blood Gas Temperature 37 Oxygen Delivery Method (LAB) [id number]/7 FiO2 99 % Total Carbon Dioxide 26.4 mmol/L Current Medications Medications (Trade) Dose Ordered Sig/Davon Route PRN Reason Start Time Stop Time Status Last Admin Dose Admin Remdesivir 200 mg/ Sodium Chloride 140 ml @ 120.69 mls/ hr OT STAT IV 04/28/21 19:53 04/29/21 08:10 DC 04/28/21 19:53 Remdesivir 100 mg/ Sodium Chloride 120 ml @ 111.111 mls/hr Q24HRS IV 04/29/21 20:00 05/02/21 21:05 05/01/21 20:50 Famotidine (Pepcid) 20 mg BID PO 04/28/21 21:00 05/28/21 20:59 05/02/21 09:29 Sucralfate (Carafate) 1 gm ACHS PO 04/28/21 21:00 05/28/21 20:59 05/02/21 07:30 Enoxaparin Sodium (Lovenox) 40 mg Q24HRS SQ 04/28/21 20:00 05/28/21 19:59 05/01/21 20:50 Sucralfate (Carafate) 1 gm STK-MED ONCE PO 04/28/21 20:56 04/28/21 20:56 DC Lorazepam (Ativan) 1 mg Q4HR PRN IV ANXIETY 04/29/21 00:00 05/29/21 00:00 04/30/21 22:30 Lorazepam (Ativan) 0.5 mg Q4HR PRN IV ANXIETY 04/29/21 00:00 05/29/21 00:00 Fentanyl Citrate (Sublimaze) 50 mcg STK-MED ONCE .ROUTE 04/29/21 11:37 04/29/21 11:38 DC Fentanyl Citrate (Sublimaze) 12.5 mcg OT ONCE IV 04/29/21 15:00 04/29/21 15:06 DC 04/29/21 13:35 Acetaminophen (Tylenol) 650 mg Q6HR PRN PO PAIN 1 - 3 04/30/21 18:00 05/02/21 18:00 05/01/21 06:28 Dexmedetomidine HCl 200 mcg/ Sodium Chloride 50 ml @ 0 mls/hr IV 05/01/21 10:30 05/01/21 11:28 DC Sodium Chloride 250 ml @ ud STK-MED ONCE .ROUTE 05/01/21 20:40 05/01/21 20:40 DC Plan Assessment COVID-19 pneumonia ARDS Sepsis secondary to severe Covid infection Severe hypoxemic respiratory failure Cardiopulmonary arrest And At 11:28 AM on May 26, 2021 Plan My Orders - LUC DENISE MD Procedure Category Date Status Time Cbc With Auto Diff LAB 05/26/21 Complete 04:20 Comprehensive LAB 05/26/21 Complete Metabolic Panel 04:20 Arterial Blood Gas LAB 05/26/21 Complete 09:58 Covid Resp [facility] LAB 05/26/21 Complete 12:39 Discharge DISCHARGE 05/26/21 Transmitted 16:00 Body was released to the Family according to the hospital Procedure And policy. LUC DENISE MD May 26, 2021 16:08
== END 2021-05-26 11:36 | DRG 720 ==
LOC: ICU 15:13
PROVIDERS: ADMIT Internal Medicine; ATTEND Family Medicine
PROC: XW033E5 Introduction of Remdesivir Anti-infective into Peripheral Vein, Percutaneous Approach, New Technology Group 5 (ICD-10-PCS; principal; 2021-04-29)
PROC: 05HY33Z Insertion of Infusion Device into Upper Vein, Percutaneous Approach (ICD-10-PCS; 2021-04-29)
PROC: 5A09357 Assistance with Respiratory Ventilation, Less than 24 Consecutive Hours, Continuous Positive Airway Pressure (ICD-10-PCS; 2021-05-01)
PROC: 5A09357 Assistance with Respiratory Ventilation, Less than 24 Consecutive Hours, Continuous Positive Airway Pressure (ICD-10-PCS; 2021-05-02)
PROC: 5A09357 Assistance with Respiratory Ventilation, Less than 24 Consecutive Hours, Continuous Positive Airway Pressure (ICD-10-PCS; 2021-05-03)
PROC: 5A09357 Assistance with Respiratory Ventilation, Less than 24 Consecutive Hours, Continuous Positive Airway Pressure (ICD-10-PCS; 2021-05-04)
PROC: 5A1955Z Respiratory Ventilation, Greater than 96 Consecutive Hours (ICD-10-PCS; 2021-05-06)
PROC: 0BH17EZ Insertion of Endotracheal Airway into Trachea, Via Natural or Artificial Opening (ICD-10-PCS; 2021-05-06)
PROC: 5A09357 Assistance with Respiratory Ventilation, Less than 24 Consecutive Hours, Continuous Positive Airway Pressure (ICD-10-PCS; 2021-05-06)
PROC: 5A1955Z Respiratory Ventilation, Greater than 96 Consecutive Hours (ICD-10-PCS; 2021-05-12)
PROC: 02HV33Z Insertion of Infusion Device into Superior Vena Cava, Percutaneous Approach (ICD-10-PCS; 2021-05-14)
PROC: 02HV33Z Insertion of Infusion Device into Superior Vena Cava, Percutaneous Approach (ICD-10-PCS; 2021-05-24)
PROC: 5A12012 Performance of Cardiac Output, Single, Manual (ICD-10-PCS; 2021-05-26)
DX: A41.89 Other specified sepsis (principal); U07.1 COVID-19; D68.59 Other primary thrombophilia; J80 Acute respiratory distress syndrome; E46 Unspecified protein-calorie malnutrition; I50.9 Heart failure, unspecified; J15.9 Unspecified bacterial pneumonia; E83.39 Other disorders of phosphorus metabolism; I46.9 Cardiac arrest, cause unspecified; J12.82 Pneumonia due to coronavirus disease 2019; I95.9 Hypotension, unspecified; N91.2 Amenorrhea, unspecified; R73.9 Hyperglycemia, unspecified; T38.0X5A Adverse effect of glucocorticoids and synthetic analogues, initial encounter; R62.7 Adult failure to thrive; D64.9 Anemia, unspecified; B95.7 Other staphylococcus as the cause of diseases classified elsewhere; E66.9 Obesity, unspecified; E78.1 Pure hyperglyceridemia; K59.00 Constipation, unspecified; Z53.20 Procedure and treatment not carried out because of patient's decision for unspecified reasons; G83.9 Paralytic syndrome, unspecified; Z68.33 Body mass index [BMI] 33.0-33.9, adult; Y92.89 Other specified places as the place of occurrence of the external cause
CPT/HCPCS: 36415; 36569; 36600; 71045; 74018; 80053; 80202; 81001; 81003; 82550; 82553; 82728; 82803; 82948; 83036; 83615; 83735; 83880; 84100; 84145; 84478; 84484; 84703; 85007; 85025; 85027; 85379; 85610; 85651; 85730; 86140; 87040; 87070; 87077; 87086; 87186; 87205; 87633; 92950; 93005; 94002; 94003; 94660; G0378; J0131; J0171; J0330; J0692; J1100; J1170; J1650; J1815; J1885; J1940; J2060; J2250; J2543; J2920; J3010; J3370; J3475; J3490; J7030; J7040; J7050; J7070; J7611; A6212; A9270; J3480